=== PATIENT | male | born 1985 | race Two or more races ===

== ENCOUNTER 2023-06-11 09:03 | Outpatient (REF) | payer OTHER, SELFPAY ==
[2023-06-11 09:36] LABS: MANUAL DIFF FLAG NO
[2023-06-11 09:54] LABS: Basophils Absolute Auto 0.1 X10*3/uL (0.0-0.2); Basophils Percent Auto 1.1 % (0-2); Eosinophils Absolute Auto 0.4 X10*3/uL (0.0-0.4); Eosinophils Percent Auto 6.4 % (0-4); Hematocrit 43.7 % (42.0-52.0); Hemoglobin 15.3 g/dl (14.0-18.0); Imm Gran Abs Auto 0.02 X10*3/uL (0.00-0.03); Imm Gran Pct Auto 0.3 % (0.0-0.4); Lymphocytes Absolute Auto 2.6 X10*3/uL (1.2-4.9); Mean Corpuscular Hemoglobin 31.6 pg (27.0-33.0); Mean Corpuscular Volume 90.3 fL (80.0-98.0); Mean Platelet Volume 9.5 fL (9.4-12.4); Monocytes Absolute Auto 0.6 X10*3/uL (0.1-1.2); Monocytes Percent Auto 9.1 % (2-11); Neutrophils Absolute Auto 2.7 x10*3/uL (2.0-8.3); Neutrophils Percent Auto 42.1 % (45-73); Platelet Count 299 X10*3/uL (160-400); Red Blood Count 4.84 X10*6/uL (4.60-5.80); Red Cell Distribution Width 12.4 % (11.0-16.0); White Blood Count 6.3 X10*3/uL (4.8-10.8)
[2023-06-11 10:18] LABS: Alanine Aminotransferase 30 U/L (0-40); Albumin Level 4.7 g/dL (3.5-5.0); Alkaline Phosphatase 49 U/L (39-117); Aspartate Amino Transferase 37 U/L (5-37); Bilirubin Direct 0.3 mg/dL (0.0-0.5); Bilirubin Total 0.9 mg/dL (0.0-1.0); Total Protein 7.6 g/dL (6.5-8.0)
== END 2023-06-11 09:04 | disposition home or self-care (01) ==
LOC: HO.LAB 09:03
PROVIDERS: Visit Provider Physician Assistant Medical
DX: B35.4 Tinea corporis (principal)
CPT/HCPCS: 36415; 80076; 85025

== ENCOUNTER 2023-08-11 09:47 | Outpatient (AMB) | payer OTHER, SELFPAY ==
--- NOTE | 2023-08-11 09:51 | MHC.PC.OV ---
Vital Signs 08/11/23 09:54 Height 5 ft 9.5 in Weight 175 lb 6 oz BMI 25.5 BP 130/62 Blood Pressure Location Rt brachial Position Sitting Pulse 86 Pulse Source Pulse Oximeter Pulse Oximetry (%) 99 Oxygen Delivery Method Room Air Intake Visit Reasons: Obstetric Anaesthetist/ High bp Intake Note: Patient is a new patient here to establish care for High Pressure, Borderline Thyroid, shoulder pain. Transferring care from Dr Ivana Martinez ([facility]). Medical records have been requested and have not received. Supervisor Soakers Required: No Mobile Lab Technician: Not Required per policy Accompanied by: Self / Same As Patient Allergies No Known Allergies Allergy (Verified 08/11/23 10:33) Medication List - Last Reconciled 08/11/23 by Boom Salomon MD hydrochlorothiazide 25 mg PO DAILY levothyroxine 25 mcg PO DAILY sildenafil (pulm.hypertension) 60 mg PO DAILY Tobacco use date assessed: 08/11/23 Dental Screening Dental Screen Date: 08/11/23 Did you have a dental visit in the last 12 months?: No Did you have a dental problem in the last 6 months where you did not have access to dental care?: No Was dental information given to patient?: No HPI Obstetric Anaesthetist/ High bp HPI Details 38-year-old male presents to the office to establish his care here. Requesting a physical today. Past medical history includes hypertension, tinea corporis, tobacco addiction and moderate alcohol use. He also has subclinical hypothyroidism. Patient is seeing a blower room attendant for the treatment of extensive tinea PFSH Medical History (Updated 08/11/23 @ 10:36 by Boom Salomon MD) Alcohol use disorder, mild, abuse Tobacco use disorder Tinea corporis Acquired hypothyroidism Essential hypertension Surgical History No pertinent past surgical history Social History Housing: Condominium Alcohol intake: current Alcohol intake frequency: a few times a week Patient Tobacco Use Status: Current everyday Tobacco user (chewing ) e-Cigarette/Vaping Use: Never Used Second Hand Smoke Exposure: Yes service: No Current occupational status: employed 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 1. Little interest or pleasure in doing things: not at all 2. Feeling down, depressed, or hopeless: not at all 3. Trouble falling or staying asleep, or sleeping too much: not at all 4. Feeling tired or having little energy: not at all 5. Poor appetite or overeating: not at all 6. Feeling bad about yourself - or that you are a failure or have let yourself or your family down: not at all 7. Trouble concentrating on things, such as reading the newspaper or watching television: not at all 8. Moving or speaking so slowly that other people could have noticed. Or the opposite - being so fidgety or restless that you have been moving around a lot more than usual: not at all 9. Thoughts that you would be better off or of hurting yourself in some way: not at all Total score: 0 Depression Screening Interpretation: Negative Depression Screening Done: Yes Source: Developed by Drs. Hasmukh Canela, Nilam Hernandez, Elio Capps and colleagues, with an educational nury from [employer]. Thrive Questionnaire Date Thrive assessed: 08/11/23 I am a: Patient What is your living situation today?: I have a steady place to live Within the past 12 months, did the food you bought not last and you didn't have the money to get more?: Never true Within the past 12 months, did you worry whether your food would run out before you got money to buy more?: Never true Do you have trouble paying for medicines?: No Do you have trouble getting transportation to medical appointments?: No Do you have trouble paying your heating and electricity bill?: No Do you have trouble taking care of your child, family member or friend?: No Do you have trouble with day-to-day activities such as bathing, preparing meals, shopping, managing finances, etc.?: No Are you currently unemployed and looking for a job?: No Are you interested in more education?: No Currently or been in a relationship where the following occur: no concerns reported AUDIT C Alcohol Use Questionnaire (AUDIT-C) 1. How often do you have a drink containing alcohol?: 2-3 times a week 2. How many drinks containing alcohol do you have on a typical day when you are drinking?: 1 or 2 Total Score: 3 RAISA-7 AMB Questionnaire RAISA-7 Date RAISA - 7 assessed: 08/11/23 Feeling nervous, anxious, or on edge: 0 = Not at all Not being able to stop or control worryin = Not at all Worrying too much about different things: 0 = Not at all Trouble relaxin = Not at all Being so restless that it is hard to sit still: 0 = Not at all Becoming easily annoyed or irritable: 0 = Not at all Feeling afraid as if something awful might happen: 0 = Not at all Total RAISA-7 score (0-4 normal; 5-9 mild; 10-14 moderate; 15-21 severe): 0 Source: Developed by Drs. Hasmukh Canela, Nilam Hernandez, Elio Capps and colleagues, with an educational nury from [employer]. Physical exam (Primary Care) Vital Signs: Last Vital Signs Pulse 86 08/11/23 09:54 BP 130/62 08/11/23 09:54 Pulse Ox 99 08/11/23 09:54 Oxygen Delivery Method Room Air 08/11/23 09:54 BMI result Body Mass Index 25.5 Tobacco/Smoking Status: Tobacco use Status Tobacco use date assessed 08/11/23 08/11/23 10:07 Patient Tobacco Use Status Current everyday Tobacco ( 08/11/23 10:07 chewing ) e-Cigarette/Vaping Use Never Used 08/11/23 10:07 PHQ-9: PHQ-9 Score PHQ-9: Total score 0 08/11/23 10:07 Depression Screening Interpretation: Negative Thrive Assessment: Date of Thrive Assessment Date Thrive assessed 08/11/23 08/11/23 10:07 Currently or been in a relationship where the following occur: no concerns reported Const General: cooperative and healthy appearing Nutritional Appearance: well nourished Orientation/consciousness: patient oriented x3 Limitations: no limitations HENMT Head: Yes normal to inspection Eyes General: appearance normal, both eyes and all related structures Neck Neck: Yes normal visual inspection Chest Chest palpation & inspection: normal palpation of entire chest wall Resp Effort & Inspection: normal respiratory effort Cardio Palpation: normal PMI Rate: regular rate Rhythm: regular rhythm Heart sounds: S1 normal heart sound present and S2 normal heart sound present GI Palpation (GI): No hepatosplenomegaly present Skin Other: Face: Peeling erythematous rash on the malar area. He also has a brownish rash on the left side of the abdomen with overlying scales. Neuro General: patient oriented x3 Assessment and Plan Assessment & Plan (1) Essential hypertension: Code(s): I10 - Essential (primary) hypertension Plan: Blood pressure is in range. Prescription for hydrochlorothiazide has been refilled. (2) Acquired hypothyroidism: Code(s): E03.9 - Hypothyroidism, unspecified Plan: Blood work has been ordered. Continue levothyroxine at the same dosage. (3) Tinea corporis: Code(s): B35.4 - Tinea corporis Plan: This is the most acute of his medical problem. He is under the care of a blower room attendant who is prescribing ketoconazole. He is using the ketoconazole on the face also after consulting with the blower room attendant. (4) Tobacco use disorder: Code(s): F17.200 - Nicotine dependence, unspecified, uncomplicated Plan: 15 minutes spent counseling the patient to quit tobacco use. (5) Alcohol use disorder, mild, abuse: Code(s): F10.10 - Alcohol abuse, uncomplicated Plan: Patient was encouraged to decrease the amount of alcohol he is consuming. Also to start exercising and follow a healthy diet. Coding Level of Care Code New Pt Level 5 ([address]55) Diagnoses Essential hypertension I10 Acquired hypothyroidism E03.9 Tinea corporis B35.4 Tobacco use disorder F17.200 Alcohol use disorder, mild, abuse F10.10
[2023-08-11 09:54] VITALS: BP 130/62; PULSE 86; O2SAT 99; BMI 25.5
== END 2023-08-11 10:30 | disposition home or self-care (01) ==
PROVIDERS: PCP Internal Medicine; Visit Provider Internal Medicine
DX: I10 Essential (primary) hypertension (principal); E03.9 Hypothyroidism, unspecified; B35.4 Tinea corporis; F17.210 Nicotine dependence, cigarettes, uncomplicated; F10.10 Alcohol abuse, uncomplicated
CPT/HCPCS: 99204

== ENCOUNTER 2023-08-12 09:20 | Outpatient (REF) | payer OTHER, SELFPAY ==
[2023-08-12 10:54] LABS: Hematocrit 39.9 % (42.0-52.0); Hemoglobin 14.1 g/dl (14.0-18.0); Mean Corpuscular HGB Conc 35.3 g/dl (31.0-36.0); Mean Corpuscular Hemoglobin 32.7 pg (27.0-33.0); Mean Corpuscular Volume 92.6 fL (80.0-98.0); Mean Platelet Volume 10.1 fL (9.4-12.4); Platelet Count 257 X10*3/uL (160-400); Red Blood Count 4.31 X10*6/uL (4.60-5.80)
[2023-08-12 11:07] LABS: Appearance Urine Clear; Color Urine Yellow; Glucose Urine UA Negative (Negative); Leukocyte Esterase Urine Negative (Negative); Nitrite Urine Negative (Negative); UMIC TRIGGER UA YES; Urine Blood Small (1+) (Negative); Urine Ketones Negative (Negative); Urine Protein Negative (Neg-Trace)
[2023-08-12 11:25] LABS: Bacteria Urine None Seen (None Seen); Hyaline Casts Urine 0-2 /LPF (0-2); RBC Urine 0-2 /HPF (0-2); Squamous Epithelial Cell Urine 0-2 /HPF (0-2); WBC Urine 0-5 /HPF (0-5)
[2023-08-12 12:28] LABS: Alanine Aminotransferase 30 U/L (0-40); Albumin Level 4.3 g/dL (3.5-5.0); Alkaline Phosphatase 39 U/L (39-117); Anion Gap 11 (12-20); Aspartate Amino Transferase 27 U/L (5-37); Bilirubin Direct 0.3 mg/dL (0.0-0.5); Blood Urea Nitrogen 5 mg/dL (9-16); Carbon Dioxide 26 mmol/L (22-29); Chloride 106 mmol/L (96-108); Cholesterol 133 mg/dL (<200); Estimated Glomerular Filt Rate > 60; Glucose Random 106 mg/dL (60-115); HDL Cholesterol 59 mg/dL (>40); LDL Cholesterol Calculated 47 mg/dL (<100); Potassium 3.9 mmol/L (3.3-5.1); Sodium 139 mmol/L (135-145); Total Protein 6.8 g/dL (6.5-8.0); Triglycerides 139 mg/dL (<150)
== END 2023-08-12 09:21 | disposition home or self-care (01) ==
LOC: HO.LAB 09:20
PROVIDERS: PCP Internal Medicine; Visit Provider Internal Medicine
DX: I10 Essential (primary) hypertension (principal)
CPT/HCPCS: 36415; 80048; 80061; 80076; 81001; 81003; 84443; 85027

== ENCOUNTER 2023-12-23 10:20 | Outpatient (REF) | payer OTHER, SELFPAY ==
[2023-12-23 10:35] LABS: MANUAL DIFF FLAG NO
[2023-12-23 10:53] LABS: Basophils Absolute Auto 0.1 X10*3/uL (0.0-0.2); Basophils Percent Auto 0.8 % (0-2); Eosinophils Absolute Auto 0.5 X10*3/uL (0.0-0.4); Eosinophils Percent Auto 6.8 % (0-4); Hematocrit 40.8 % (42.0-52.0); Hemoglobin 14.7 g/dl (14.0-18.0); Imm Gran Abs Auto 0.01 X10*3/uL (0.00-0.03); Imm Gran Pct Auto 0.1 % (0.0-0.4); Lymphocytes Absolute Auto 3.1 X10*3/uL (1.2-4.9); Lymphocytes Percent Auto 43.6 % (20-40); Mean Corpuscular Hemoglobin 32.1 pg (27.0-33.0); Mean Corpuscular Volume 89.1 fL (80.0-98.0); Mean Platelet Volume 9.6 fL (9.4-12.4); Monocytes Absolute Auto 0.6 X10*3/uL (0.1-1.2); Monocytes Percent Auto 7.9 % (2-11); Neutrophils Absolute Auto 2.9 x10*3/uL (2.0-8.3); Neutrophils Percent Auto 40.8 % (45-73); Platelet Count 291 X10*3/uL (160-400); Red Blood Count 4.58 X10*6/uL (4.60-5.80); Red Cell Distribution Width 12.4 % (11.0-16.0); White Blood Count 7.1 X10*3/uL (4.8-10.8)
[2023-12-23 11:35] LABS: Alanine Aminotransferase 18 U/L (0-40); Albumin Level 4.4 g/dL (3.5-5.0); Alkaline Phosphatase 56 U/L (39-117); Aspartate Amino Transferase 21 U/L (5-37); Bilirubin Direct 0.3 mg/dL (0.0-0.5); Bilirubin Total 0.9 mg/dL (0.0-1.0); Total Protein 7.1 g/dL (6.5-8.0)
== END 2023-12-23 10:21 | disposition home or self-care (01) ==
LOC: HO.LAB 10:20
PROVIDERS: Visit Provider Physician Assistant Medical
DX: B35.4 Tinea corporis (principal)
CPT/HCPCS: 36415; 80076; 85025

== ENCOUNTER 2024-03-02 09:38 | Outpatient (AMB) | payer OTHER, SELFPAY ==
[2024-03-02 09:45] VITALS: BP 122/90; PULSE 87; O2SAT 98; BMI 25.8
--- NOTE | 2024-03-02 09:45 | A.OFFPC_ITS ---
Vital Signs 03/02/24 09:45 Height 5 ft 9.5 in Weight 177 lb 0.6 oz BMI 25.8 BP 122/90 H Blood Pressure Location Lt brachial Position Sitting Pulse 87 Pulse Source Pulse Oximeter Pulse Oximetry (%) 98 Oxygen Delivery Method Room Air Intake Visit Reasons: HTN, Hypothyroidism Intake Note: Patient is here to follow up Embedded Linux Developer Required: No Allergies No Known Allergies Allergy (Verified 03/02/24 10:51) Medication List - Last Reconciled 03/02/24 by Boom Salomon MD hydrochlorothiazide 25 mg PO DAILY levothyroxine 25 mcg PO DAILY sildenafil (pulm.hypertension) 60 mg PO DAILY Tobacco use date assessed: 08/11/23 Dental Screening Dental Screen Date: 08/11/23 HPI HTN, Hypothyroidism HPI Details 38-year-old male presents to the office to discuss his chronic medical conditions. Since last office visit patient was seen by the air plant engineer for his extensive tinea corporis. He was given systemic therapy to which he responded. He is now taking topical ketoconazole for it. Has stopped taking the medication for hypothyroidism. Compliant with blood pressure meds. 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 How often do you have a drink containing alcohol?: 2-3 times a week 2. How many drinks containing alcohol do you have on a typical day when you are drinking?: 1 or 2 Total Score: 3 RAISA-7 AMB Questionnaire RAISA-7 Date RAISA - 7 assessed: 08/11/23 Source: Developed by Drs. Hasmukh Canela, Nilam Hernandez, Elio Capps and colleagues, with an educational nury from [employer]. Physical exam (Primary Care) Vital Signs: Last Vital Signs Pulse 87 03/02/24 09:45 BP 122/90 H 03/02/24 09:45 Pulse Ox 98 03/02/24 09:45 Oxygen Delivery Method Room Air 03/02/24 09:45 BMI result Body Mass Index 25.8 Tobacco/Smoking Status: Tobacco use Status Tobacco use date assessed 08/11/23 03/02/24 09:46 Patient Tobacco Use Status Current everyday Tobacco ( 03/02/24 09:46 chewing ) e-Cigarette/Vaping Use Never Used 03/02/24 09:46 Thrive Assessment: Date of Thrive Assessment Date Thrive assessed 08/11/23 03/02/24 09:46 Const General: cooperative and healthy appearing Nutritional Appearance: well nourished Orientation/consciousness: patient oriented x3 Limitations: no limitations HENMT Head: Yes normal to inspection Eyes General: appearance normal, both eyes and all related structures Neck Neck: Yes normal visual inspection Chest Chest palpation & inspection: normal palpation of entire chest wall Resp Effort & Inspection: normal respiratory effort Skin Other: Abdomen: Fading rash with hip margin. Neuro General: patient oriented x3 Assessment and Plan Assessment & Plan (1) Tinea corporis: Code(s): B35.4 - Tinea corporis Plan: Patient was instructed to report the names of the medications the air plant engineer has prescribed. (2) Tobacco use disorder: Code(s): F17.200 - Nicotine dependence, unspecified, uncomplicated Plan: Patient continues to chew tobacco. Risks explained. (3) Acquired hypothyroidism: Code(s): E03.9 - Hypothyroidism, unspecified Plan: TSH will be drawn again. Based on the results, Synthroid will be restarted. (4) Essential hypertension: Code(s): I10 - Essential (primary) hypertension Plan: Blood pressure is stable Coding Level of Care Code Est Pt Level 4 (79339) Complex EM visit Add On G2211 Diagnoses Tinea corporis B35.4 Tobacco use disorder F17.200 Acquired hypothyroidism E03.9 Essential hypertension I10
== END 2024-03-02 10:50 | disposition home or self-care (01) ==
PROVIDERS: PCP Internal Medicine; Visit Provider Internal Medicine
DX: B35.4 Tinea corporis (principal); F17.200 Nicotine dependence, unspecified, uncomplicated; E03.9 Hypothyroidism, unspecified; I10 Essential (primary) hypertension
CPT/HCPCS: 99214; G2211

== ENCOUNTER 2024-03-03 10:29 | Outpatient (REF) | payer OTHER, SELFPAY ==
[2024-03-03 11:10] LABS: Hematocrit 43.3 % (42.0-52.0); Hemoglobin 15.5 g/dl (14.0-18.0); Mean Corpuscular HGB Conc 35.8 g/dl (31.0-36.0); Mean Corpuscular Hemoglobin 32.4 pg (27.0-33.0); Mean Corpuscular Volume 90.6 fL (80.0-98.0); Mean Platelet Volume 9.3 fL (9.4-12.4); Platelet Count 300 X10*3/uL (160-400); Red Blood Count 4.78 X10*6/uL (4.60-5.80); Red Cell Distribution Width 12.4 % (11.0-16.0); White Blood Count 5.2 X10*3/uL (4.8-10.8)
[2024-03-03 12:04] LABS: Alanine Aminotransferase 47 U/L (0-40); Albumin Level 4.3 g/dL (3.5-5.0); Alkaline Phosphatase 54 U/L (39-117); Anion Gap 12 (12-20); Aspartate Amino Transferase 47 U/L (5-37); Bilirubin Direct 0.4 mg/dL (0.0-0.5); Bilirubin Total 1.3 mg/dL (0.0-1.0); Blood Urea Nitrogen 4 mg/dL (9-16); Calcium 9.4 mg/dL (8.4-10.2); Carbon Dioxide 30 mmol/L (22-29); Chloride 101 mmol/L (96-108); Cholesterol 145 mg/dL (<200); Estimated Glomerular Filt Rate > 60; Glucose Random 116 mg/dL (60-115); HDL Cholesterol 56 mg/dL (>40); LDL Cholesterol Calculated 61 mg/dL (<100); Potassium 3.8 mmol/L (3.3-5.1); Sodium 139 mmol/L (135-145); Triglycerides 140 mg/dL (<150)
[2024-03-03 12:19] LABS: Thyroid Stimulating Hormone 1.92 uIU/mL (0.32-4.0)
[2024-03-03 13:30] LABS: Appearance Urine Clear; Color Urine Yellow; Glucose Urine UA Negative (Negative); Leukocyte Esterase Urine Small (1+) (Negative); Nitrite Urine Negative (Negative); PH 7.5 (5.0-9.0); UMIC TRIGGER UA YES; Urine Blood Trace (Negative); Urine Ketones Negative (Negative); Urine Protein Negative (Neg-Trace)
[2024-03-03 13:43] LABS: Bacteria Urine None Seen (None Seen); Hyaline Casts Urine 0-2 /LPF (0-2); Squamous Epithelial Cell Urine 0-2 /HPF (0-2); WBC Urine 0-5 /HPF (0-5)
== END 2024-03-03 10:30 | disposition home or self-care (01) ==
LOC: HO.LAB 10:29
PROVIDERS: PCP Internal Medicine; Visit Provider Internal Medicine
DX: B35.4 Tinea corporis (principal); E03.9 Hypothyroidism, unspecified
CPT/HCPCS: 36415; 80048; 80061; 80076; 81001; 84443; 85027

== ENCOUNTER 2024-09-09 11:02 | Outpatient (AMB) | payer OTHER, SELFPAY ==
--- OUTSIDE RECORDS SUMMARY | 2024-09-09 11:06 | XMS_ITS | Encounter Summary ---
Author Organization [facility] Address [address] [place] [address] Care Team Providers Care Senior Hadoop Developer Name Role Phone Pcp, No Primary Care Provider Unavailabl e Encounter Details Date Type Department Care Team (Late st Contact Info) Description 10/12/2022 Scanned Document Advanced Radiology [address] [phone] Matthew Rodney MD [address] [place] [phone] Social History Tobacco Use Types Packs/Day Years Used Date Smoking Tobacco: Never Assessed Sex and Gender Information Value Date Recorded Sex Assigned at Not on file Gender Identity Not on file Sexual Orientation Not on file documented as of this encounter Plan of Treatment Not on file documented as of this encounter Visit Diagnoses Not on filedocumented in this encounter Care Teams Senior Hadoop Developer Relationship Specialty Start Date End Date Pcp, No PCP - General 10/21/22 documented as of this encounter
--- OUTSIDE RECORDS SUMMARY | 2024-09-09 11:06 | XMS_ITS | Encounter Summary ---
Author Organization [facility] Address [address] [place] [address] Care Team Providers Care Velvet Weaver Name Role Phone Ivana Martinez HECTOR Primary Care Provider Encounter Details Date Type Department Care Team (Late st Contact Info) Description 10/12/2021 Scanned Document [facility] [address] [place] [address] Matthew Huynh MD [address] [place] [address] Social History Tobacco Use Types Packs/Day Years Used Date Smoking Tobacco: Never Smokeless Tobacco: Current Chew Alcohol Use Standard Drinks/Week Comments Not Currently 0 (1 standard drink = 0.6 oz pur e alcohol) 2-3 /day AUDIT-C Answer Date Recorded Q1: How often do you have a drink containing alc ohol? 2-3 times a week 10/10/2020 Average Number of Drinks Not on file 021 Frequency of Binge Drinking Not on file 04/2021 PHQ-2 Answer Date Recorded PHQ-2 Total Score 2 09/10/2021 Sex and Gender Information Value Date Recorded Sex Assigned at Male 11/14/2022 12:08 PM EDT Legal Sex Male 9:58 AM EDT Gender Identity Male 11/14/2022 12:08 PM EDT Sexual Orientation Straight 11/14/2022 12 :08 PM EDT COVID-19 Exposure Response Date Recorded In the last month, have you been in contact with someone who was confirmed or suspected to have Coronavirus / COVID-19? No / Unsure 10/12/2021 9:41 AM EST documented as of this encounter Plan of Treatment Not on file documented as of this encounter Visit Diagnoses Not on filedocumented in this encounter Additional Health Concerns Assessment Noted Time PHQ-9 Depression Total Score: 2 09/10/19 10:11 AM EST documented as of this encounter Care Teams Velvet Weaver Relationship Specialty Start Date End Date Ivana Martinez APRN PCP - General Family Medicine 05/13/22 01/27/24 documented as of this encounter
--- OUTSIDE RECORDS SUMMARY | 2024-09-09 11:06 | XMS_ITS | Encounter Summary ---
Author Organization [facility] Address [address] [place] [address] Care Team Providers Care Chief Arson Division Name Role Phone Ivana Martinez HECTOR Primary Care Provider Encounter Details Date Type Department Care Team (Late st Contact Info) Description 11/08/2020 Scanned Document [address] [employer] [facility] [address] [place] [phone] External, Provider Social History Tobacco Use Types Packs/Day Years Used Date Smoking Tobacco: Never Smokeless Tobacco: Current Chew Alcohol Use Standard Drinks/Week Comments Yes 0 (1 standard drink = 0.6 oz pur e alcohol) 7-8 drinks / week AUDIT-C Answer Date Recorded Q1: How often do you have a drink containing alc ohol? 2-3 times a week 10/10/2020 Average Number of Drinks Not on file Frequency of Binge Drinking Not on file 04/2021 PHQ-2 Answer Date Recorded PHQ-2 Total Score 0 10/10/2020 Sex and Gender Information Value Date Recorded Sex Assigned at Male 11/14/2022 12:08 PM EDT Legal Sex Male 9:58 AM EDT Gender Identity Male 11/14/2022 12:08 PM EDT Sexual Orientation Straight 11/14/2022 12 :08 PM EDT documented as of this encounter Plan of Treatment Not on file documented as of this encounter Procedures Procedure Name Priority Date/Time Associated Diagnosis Comments XRAY RESULT SCAN Routine 11/08/2020 documented in this encounter Results * Xray Result Scan (11/08/2020) us Provider External IMG SCAN REPORTS Final Result documented in this encounter Visit Diagnoses Not on filedocumented in this encounter Additional Health Concerns Infection Onset Date Last Indicated Resolved Time R/O COVID-19 03/19/2021 03/19/2021 03/19/2021 8:49 PM EDT Assessment Noted Time PHQ-9 Depression Total Score: 0 10/11/19 21 10:00 AM EST documented as of this encounter Care Teams Chief Arson Division Relationship Specialty Start Date End Date Ivana Martinez APRN PCP - General Family Medicine 05/13/22 01/27/24 documented as of this encounter
--- OUTSIDE RECORDS SUMMARY | 2024-09-09 11:06 | XMS_ITS | Encounter Summary ---
Author Organization [facility] Address [address] [place] [address] Care Team Providers Care Automobile Damage Appraiser Name Role Phone Ivana Martinez HECTOR Primary Care Provider Reason for Visit * Reason Comments Medication Refill Encounter Details Date Type Department Care Team (Late st Contact Info) Description 06/01/2021 Refill [facility] Internal Medicine [address] [place] [address] Zoya Clayton MD [facility] [address] [phone] Medication Refill Social History Tobacco Use Types Packs/Day Years [...] Answer Date Recorded PHQ-2 Total Score 0 05/21/2021 Sex and Gender Information Value Date Recorded Sex Assigned at Male 11/14/2022 12:08 PM EDT Legal Sex Male 9:58 AM EDT Gender Identity Male 11/14/2022 12:08 PM EDT Sexual Orientation Straight 11/14/2022 12 :08 PM EDT documented as of this encounter Miscellaneous Notes * Telephone Encounter - Savannah Hassan - 06/01/2021 9:19 AM EDT LUIS FELIPE 05/21/2021 NOV 06/06/2021 documented in this encounter Plan of Treatment Not on file documented as of this encounter Visit Diagnoses Not on filedocumented in this encounter Additional Health Concerns Assessment Noted Time PHQ-9 Depression Total Score: 0 05/21/20 21 11:05 AM EDT documented as of this encounter Care Teams Automobile Damage Appraiser Relationship Specialty Start Date End Date Ivana Martinez APRN PCP - General Family Medicine 05/13/22 01/27/24 documented as of this encounter
--- OUTSIDE RECORDS SUMMARY | 2024-09-09 11:06 | XMS_ITS | Clinical Summary ---
Author Organization [address] Address [address] [place] [phone] Care Team Providers Care Bow Machine Operator Name Role Phone Unavailable Primary Care Provider Unavailabl e Allergies No known active allergies Medications omeprazole (PRILOSEC) 40 mg capsule Take 1 capsule (40 mg total) by mouth daily. 90 capsule 2 Active Additional Information Patient not taking.Reported on 02/26/2023 terbinafine HCL (LAMISIL) 250 mg tabletIndicatio ns:tinea corporis,tinea pedis Take 1 tablet (250 mg total) by mouth daily. 30 tablet 3 Active ketoconazole (NIZORAL) 2 % creamIndication s:tinea corporis,tinea pedis Apply topically daily. 60 g 11 3 Active hydroCHLOROthia zide (HYDRODIURIL) 25 mg tablet Take 1 tablet (25 mg total) by mouth daily. 90 tablet 1 3 Active levothyroxine (SYNTHROID, LEVOTHROID) 25 MCG tablet Take 1 tablet (25 mcg total) by mouth daily. 90 tablet 1 3 Active ergocalciferol (ERGOCALCIFEROL ) 1,250 mcg (50,000 unit) capsuleIndicati ons:Vitamin D deficiency take 1 capsule by mouth one time per week 12 capsule 3 Active sildenafil (REVATIO) 20 mg tablet Please take 3 to 5 tablets as needed prior to sexual act activity on an empty stomach. 100 tablet 6 4 Active Active Problems Problem Noted Date Diagnosed Date Premature ejaculation 10/02/2022 Microhematuria 05/20/2022 ED (erectile dysfunction) of organic origin 05/04 Jock itch 05/20/2022 Screening PSA (prostate specific antigen) 2021 Hypercalcemia 10/10/2020 Hypertension, unspecified type 06/11/2019 Tinea corporis 06/11/2019 GERD (gastroesophageal reflux disease) Resolved Problems Problem Noted Date Diagnosed Date Resolved Date Chest pain, unspecified type 03/22/2020 10/10/2020 Overview (03/22/2020): EKG within normal limits. Will get 2D echo and a treadmill stress test. Immunizations Name Administration Dates Next Due COVID-19 Vaccine - PFIZER 02/03/2021 Influenza, injectable, quadrivalent, preservativ e free 05/13/2022,06/06/2021 Tdap 10/10/2020 Family History Medical History Relation Name Comments Hypertension Father Relation Name Status Comments Father Alive Mother Alive Social History Tobacco Use Types Packs/Day Years Used Date Smoking Tobacco: Never Smokeless Tobacco: Current Chew Tobacco Cessation:Ready to Q uit: Not Asked; Counseling Given: Not Answered Alcohol Use Standard Drinks/Week Comments Not Currently 0 (1 standard drink = 0.6 oz pur e alcohol) 2-3 /day AUDIT-C Answer Date Recorded Q1: How often do you have a drink containing alc ohol? 2-3 times a week 10/10/2020 Average Number of Drinks Not on file 021 Frequency of Binge Drinking Not on file 04/2021 PHQ-2 Answer Date Recorded PHQ-2 Total Score 0 02/26/2023 Sex and Gender Information Value Date Recorded Sex Assigned at Male 11/14/2022 12:08 PM EDT Legal Sex Male 9:58 AM EDT Gender Identity Male 11/14/2022 12:08 PM EDT Sexual Orientation Straight 11/14/2022 12 :08 PM EDT Last Filed Vital Signs Vital Sign Reading Time Taken Comments Blood Pressure 122/90 02/26/2023 10:38 AM EDT Pulse 85 02/26/2023 10:38 AM EDT Temperature 36.6 ??C (97.8 ??F) 02/26/2023 10:38 AM E DT Respiratory Rate 18 10/12/2021 12:15 PM EST Oxygen Saturation 99% 02/26/2023 10:38 AM EDT Inhaled Oxygen Concentration - - Weight 80.7 kg (178 lb) 02/26/2023 10:38 AM EDT Height 180.3 cm (5' 11 ) 02/26/2023 10:38 AM EDT Body Mass Index 24.83 02/26/2023 10:38 AM EDT Plan of Treatment Health Maintenance Due Date Last Done Comments Prediabetes Surveillance 02/27/2024 023, 09/03/2022, 05/13/2022, Additional history exists Covid-19 vaccine series ( season) 2024 02/03/2021 Tetanus adult (Td q 10,TDAP once) 10/10/2030 10/10/2020 Colon cancer screening, Colonoscopy 10/13/2031 10/12/2021, 10/12/2021, 10/12/2021, Additional history exists RSV Discussion (1 - 1-dose 75+ series) 2061 Hepatitis C screening Completed 05/13/2022, 021 Influenza vaccine Discontinued 05/13/2022, 06/06/2021 HIV screening Discontinued Meningococcal Vaccine Aged Out No jeanna thalia eligible based on patient's age to complete this topic Pneumococcal Vaccine Aged Out No long er eligible based on patient's age to complete this topic Procedures Procedure Name Priority Date/Time Associated Diagnosis Comments HEMOGLOBIN A1C Routine 02/26/2023 11:12 AM EDT Hypertension, unspecified type HEPATITIS C AB WITH REFLEX TO HCV PCR Routine 05/13/2022 10:46 AM EDT Hypertension, unspecified type COLONOSCOPY (IMAGES) Routine 10/12/2021 7:19 AM EST from Last 3 Months or Most Recently Relevant to Health Maintenance Results * (ABNORMAL) Hemoglobin A1c (02/26/2023 11:12 AM EDT) Hemoglobin A1c 5.8(H) 4.0 - 5.6 % 02/26/2023 7:37 PM EDT [facility] Comment: Hemoglobin A1c values of 5.7-6.4 % identify individuals with an increased risk for future diabetes and to whom the term pre-diabetes may be applied. ??Hemoglobin A1c values greater than 6.4% on more than one occasion are diagnostic of diabetes. Lowering HbA1c to below 7% is considered to reduce microvascular and neuropathic complications of diabetes. This boronate affinity Hb A1c method provides accurate analytical results in the presence of nearly all Hb variants. Hb F higher than 10% of total Hb may yield falsely low results. Conditions that shorten red cell survival, such as the presence of unstable hemoglobins like Hb SS, Hb CC, and Hb SC, or other causes of hemolytic anemia may yield falsely low results. Iron deficiency anemia may yield falsely high results. Estimated Average Glucose mg/dL 120 mg/dL 02/26/2023 7:37 PM EDT [facility] Comment: Estimated average glucose (eAG) is a calculated value designed to estimate ??the expected average blood glucose level throughout the day from a single ??measurement of ??glycated hemoglobin A1C (HbA1c) and follows the calculation proposed by the [employer] (Diabetes Care 31: 1-6, 2008). It may have less accuracy in children, women and patients with certain erythrocyte disorders. Blood Venipuncture / Unknown 02/26/2023 11:12 AM EDT 02/26/2023 11:12 AM EDT Ivana Martinez APRN LAB BLOOD ORDERABLES Fi nal Result [address] [phone] * Hepatitis C Ab with reflex to HCV PCR (05/13/2022 10:46 AM EDT) Hepatitis C Ab Initial Result 0.03 S/CO 05/13/2022 1:44 PM EDT [facility] Hepatitis C Ab Interpretation Non-React lilo Non-React lilo 05/13/2022 1:44 PM EDT [facility] Blood Venipuncture / Unknown 05/13/2022 10:46 AM EDT 05/13/2022 10:46 AM EDT us Ivana Martinez CLAY PLANT TREATER LAB BLOOD ORDERABLES Fi [place]al [place] [address], [facility] [phone] * Colonoscopy (10/12/2021 7:19 AM EST) Colonoscopy Endoscopy Patient Name: Jay Guillermo ? Procedure Date: 10/12/2021 7:19 AM ?Date of : 1985 Age: 36 ? Gender: Male Admit Type: Outpatient ?CSN #: [id number] Note Status: Finalized ?Attending MD: Matthew Huynh MD Procedure: ? Colonoscopy Indications: ? Generalized abdominal pain, Clinically significant ? diarrhea of unexplained origin Providers: ? Matthew Huynh MD Referring : ?Zoya Clayton (Referring MD) Medicines: ? Monitored Anesthesia Care Complications: ? No immediate complications. Requesting Provider: ?? Procedure: ? Pre-Anesthesia Assessment: ? - Prior to the procedure, a History and Physical was ? performed, and patient medications and allergies were ? reviewed. The patient's tolerance of previous ? anesthesia was also reviewed. The risks and benefits ? of the procedure and the sedation options and risks ? were discussed with the patient. All questions were ? answered, and informed consent was obtained. Prior ? Anticoagulants: The patient has taken no anticoagulant ? or antiplatelet agents. ASA Grade Assessment: II - A ? patient with mild systemic disease. After reviewing ? the risks and benefits, the patient was deemed in ? satisfactory condition to undergo the procedure. ? After obtaining informed consent, the scope was passed ? under direct vision. Throughout the procedure, the ? patient's blood pressure, pulse, and oxygen ? saturations were monitored continuously. The [id number] ? [id number] was introduced through the anus and advanced ? to 8 cm into the ileum. The colonoscopy was performed ? without difficulty. The patient tolerated the ? procedure well. The quality of the bowel preparation ? was good. ? Findings: ? The sigmoid colon, descending colon, transverse colon, ascending colon, ? cecum and ileum appeared normal. Biopsies were taken with a cold forceps ? for histology. ? A localized area of mildly congested and erythematous mucosa was found ? in the rectum. Biopsies were taken with a cold forceps for histology. ? Impression: ?- The sigmoid colon, descending colon, transverse ? colon, ascending colon, cecum and terminal ileum are ? normal. Biopsied. ? - Congested and erythematous mucosa in the rectum. ? Biopsied. Recommendation: ?- Discharge patient to home (with escort). ? - Resume previous diet. ? - Continue present medications. ? - Patient has a contact number available for ? emergencies. The signs and symptoms of potential ? delayed complications were discussed with the patient. ? Return to normal activities tomorrow. Written ? discharge instructions were provided to the patient. ? Procedure Code(s): ? --- Professional --- ? 31657, Colonoscopy, flexible; with biopsy, single or ? multiple Diagnosis Code(s): ? --- Professional --- ? K62.89, Other specified diseases of anus and rectum ? R10.84, Generalized abdominal pain ? R19.7, Diarrhea, unspecified CPT copyright 2020 [employer]. All rights reserved. The codes documented in this report are preliminary and upon finance mgr review may be revised to meet current compliance requirements. Attending Participation: ? I personally performed the entire procedure. ? Matthew Huynh MD _ Matthew Huynh MD 10/12/2021 11:45:52 AM This report has been signed electronically. Number of Addenda: 0 Note Initiated On: 10/12/2021 7:19 AM Estimated Blood Loss: ? Estimated blood loss: none. Scope In: Scope Out: [facility] [employer] 10/12/2021 7:19 AM EST Zoya Clayton MD GI PROCEDURE ORDERABLES Final Re sult [facility] [employer] from Last 3 Months or Most Recently Relevant to Health Maintenance Insurance [place]ID [place] Advance Directives Documents on File Type Date Recorded Patient Spout Liner Expl anation Healthcare Spout Liner/Po wer of Library Technology Instructor 03/19/2021 4:27 PM 2020
--- OUTSIDE RECORDS SUMMARY | 2024-09-09 11:06 | XMS_ITS | Encounter Summary ---
Author Organization [facility] Address [address] [place] [phone] Care Team Providers Care Revenue Analyst Name Role Phone Andrew Martinezhanie HECTOR Primary Care Provider Encounter Details Date Type Department Care Team (Late st Contact Info) Description 09/26/2021 Scanned Document [facility] Internal Medicine [address] [place], [place] [phone] External, Provider Social History Tobacco Use Types [...] Procedure Name Priority Date/Time Associated Diagnosis Comments XR SHOULDER RIGHT MIN 2 VIEWS Routine 09/26/2021 XR SHOULDER RIGHT MIN 2 VIEWS Routine 09/26/2021 documented in this encounter Results * XR Shoulder Right Min 2 Views (09/26/2021) Anatomical Region Laterality Modality Shoulder, Ortho Shoulder Right Digital Radiography us Provider External IMG DIAGNOSTIC IMAGING ORDERAB LES Final Result * XR Shoulder Right Min 2 Views (09/26/2021) Anatomical Region Laterality Modality Shoulder, Ortho Shoulder Right Digital Radiography us Provider External IMG DIAGNOSTIC IMAGING ORDERAB LES Final Result documented in this encounter Visit Diagnoses Not on filedocumented in this encounter Additional Health Concerns Assessment Noted Time PHQ-9 Depression Total Score: 2 09/10/19 22 10:11 AM EST documented as of this encounter Care Teams Revenue Analyst Relationship Specialty Start Date End Date Ivana Martinez APRN PCP - General Family Medicine 05/13/22 01/27/24 documented as of this encounter
--- OUTSIDE RECORDS SUMMARY | 2024-09-09 11:06 | XMS_ITS | Encounter Summary ---
Author Organization [facility] Address [address] [place] [address] Care Team Providers Care Cnc Operator Programmer Name Role Phone Ivana Martinez HECTOR Primary Care Provider Reason for Visit * Reason Comments Medication Refill Encounter Details Date Type Department Care Team (Late st Contact Info) Description 09/29/2020 Refill [facility] Family Medicine [address] [place], [place] [id number] Zoya Clayton MD [address] [phone] Medication Refill Social History Tobacco Use Types Packs/Day Years Used Date Smoking Tobacco: Never Smokeless Tobacco: Current Chew Alcohol Use Standard Drinks/Week Comments Yes 0 (1 standard drink = 0.6 oz pur e alcohol) 7-8 drinks / week AUDIT-C Answer Date Recorded Frequency of Alcohol Consumption 2-3 times a wee k 05/05/2019 Average Number of Drinks Not on file 019 Frequency of Binge Drinking Not on file 09/2018 PHQ-2 Answer Date Recorded PHQ-2 Score 0 06/11/2019 Sex and Gender Information Value Date Recorded [...] Noted Time PHQ-9 Depression Total Score: 0 09/29/19 20 10:49 AM EST documented as of this encounter Care Teams Cnc Operator Programmer Relationship Specialty Start Date End Date Ivana Martinez APRN PCP - General Family Medicine 05/13/22 01/27/24 documented as of this encounter
--- OUTSIDE RECORDS SUMMARY | 2024-09-09 11:06 | XMS_ITS | Encounter Summary ---
Author Organization [facility] Address [address] [place] [phone] Care Team Providers Care Industrial Boilermaker Name Role Phone Ivana Martinez HECTOR Primary Care Provider Encounter Details Date Type Department Care Team (Late st Contact Info) Description 08/27/2021 Scanned Document [address] [facility] [address] [place] [phone] Provider, historical . Social History Tobacco Use Types Packs/Day Years [...] Priority Date/Time Associated Diagnosis Comments XR SHOULDER BILATERAL AP INT AP EXT AXILLARY ( Y LM) Routine 08/22/2021 documented in this encounter Results * XR Shoulder Bilateral AP Internal AP External Axillary ( Y) (08/22/2021) Anatomical Region Laterality Modality Shoulder, Ortho Shoulder Digital Radiography us Historical Provider IMG DIAGNOSTIC IMAGING ORDER URI Final Result documented in this encounter Visit Diagnoses Not on filedocumented in this encounter Additional Health Concerns Assessment Noted Time PHQ-9 Depression Total Score: 0 05/21/20 21 11:05 AM EDT documented as of this encounter Care Teams Industrial Boilermaker Relationship Specialty Start Date End Date Ivana Martinez APRN PCP - General Family Medicine 05/13/22 01/27/24 documented as of this encounter
--- OUTSIDE RECORDS SUMMARY | 2024-09-09 11:06 | XMS_ITS ---
Author Name [facility] Organization Unknown Results Test Name/Text Value Interpretation Date Range Source Deprecated Calcidiol+Calciferol SerPl-mC 11.1ng/mL Below low normal [id number] 30 - 100 [facility] BKR ESTIMATED AVERAGE GLUCOSE 120mg/dL Normal [id number] [facility] Hgb A1c MFr Bld 5.8% Above high normal [id number] 4 - 5.6 [facility] GGT SerPl-cCnc 108U/L Above high normal [id number] - 48 [facility] Cholest/HDLc SerPl 2.9 Normal [id number] 0 - 5 [facility] LDLc SerPl Calc-mCnc 91mg/dL Normal [id number] - [facility] HDLc SerPl-mCnc 62mg/dL Normal [id number] - [facility] Trigl SerPl-mCnc 161mg/dL Above high normal [id number] - [facility] Cholest SerPl-mCnc 180mg/dL Normal [id number] - [facility] TSH SerPl DL<=0.005 mIU/L-aCnc 2.55uIU/mL Normal [id number] - [facility] Anion Gap3 SerPl-sCnc 11 Normal [id number] 7 - 1 7 [facility] Creat SerPl-mCnc 0.76mg/dL Normal [id number] 0.4 - 1.3 [facility] Albumin/Glob SerPl 1.9 Normal [id number] 1 - 2.2 [facility] Albumin SerPl BCG-mCnc 5g/dL Above high normal [id number] 3.6 - 4.9 [facility] eGFRcr SerPlBld CKD-EPI 2020 60mL/min/1.73 m2 Normal [id number] - [facility] ALT SerPl w/o P-5'-P-cCnc 27U/L Normal [id number] 9 - 59 [facility] Potassium SerPl-sCnc 4.1mmol/L Normal [id number] 3.3 - 5.3 [facility] Bilirub SerPl-mCnc 0.4mg/dL Normal [id number] - [facility] Calcium SerPl-mCnc 10mg/dL Normal [id number] 8.8 - 10 .2 [facility] AST/ALT SerPl-cRto 1.5 Normal - [facility] BUN SerPl-mCnc 8mg/dL Normal [id number] 6 - 20 [facility] ALP SerPl-cCnc 57U/L Normal [id number] 9 - 122 [facility] HCO3 SerPl-sCnc 30mmol/L Normal [id number] 20 - 30 [facility] Chloride SerPl-sCnc 99mmol/L Normal [id number] 98 - 10 7 [facility] BUN/Creat SerPl 10.5 Normal [id number] 8 - 23 [facility] AST SerPl w P-5'-P-cCnc 40U/L Above high normal 10 - 35 [facility] Globulin Plas-mCnc 2.7g/dL Normal [id number] 2.3 - 3. 5 [facility] Prot SerPl-mCnc 7.7g/dL Normal [id number] 6.6 - 8.7 [facility] Sodium SerPl-sCnc 140mmol/L Normal [id number] 136 - 144 [facility] Glucose SerPl-mCnc 96mg/dL Normal [id number] 70 - 100 [facility] Monocytes # Bld Auto 0.00n6491/uL Normal [id number] 0 - 1 [facility] BKR WAM BASOPHIL ABSOLUTE COUNT. 0.34f3419/uL Normal [id number] 0 - 1 [facility] nRBC/100 WBC Bld Auto-Rto 0% Normal [id number] 0 - 1 [facility] Neutrophils # Bld Auto 2.8c1909/uL Normal 2 - 7.6 [facility] Eosinophil # Bld Auto 0.70z1577/uL Normal [id number] 0 - 1 [facility] nRBC # Bld Auto 3l9108/uL Normal [id number] 0 - 1 [facility] MCHC RBC Auto-mCnc 36.5g/dL Above high normal [id number] 31 - 36 [facility] Monocytes/leuk NFr Bld Auto 9.5% Normal [id number] 4 - 12 [facility] WBC # Bld Auto 5.0q1651/uL Normal [id number] 4 - 11 [facility] Hct VFr Bld Auto 44.9% Normal [id number] 38.5 - 50 [facility] RDW RBC Auto-Rto 12.6% Normal [id number] 11 - 15 [facility] PMV Bld Auto 9.8fL Normal [id number] 8 - 12 [facility] Eosinophil/leuk NFr Bld Auto 8.8% Above high normal [id number] 0 - 5 [facility] MCH RBC Qn Auto 32.4pg Normal [id number] 27 - 33 [facility] Basophils/leuk NFr Bld Auto 1.3% Normal [id number] 0 - 1.4 [facility] Lymphocytes # Bld Auto 9b1491/uL Normal [id number] 0.6 - 3.7 [facility] RBC # Bld Auto 5.06M/uL Normal [id number] 4 - 6 [facility] Neutrophils/leuk NFr Bld Auto 42.8% Normal [id number] 39 - 72 [facility] Imm Granulocytes # Bld Auto 0.04w2564/uL Normal [id number] 0 - 0.3 [facility] Platelet # Bld Auto 005z3356/uL Normal [id number] 150 - 420 [facility] MCV RBC Auto 88.7fL Normal [id number] 80 - 100 [facility] Lymphocytes/leuk NFr Bld Auto 37.2% Normal [id number] 17 - 50 [facility] Imm Granulocytes/leuk NFr Bld Auto 0.4% Normal [id number] 0 - 1 [facility] Hgb Bld-mCnc 16.4g/dL Normal [id number] 13.2 - 17.1 [facility]
--- OUTSIDE RECORDS SUMMARY | 2024-09-09 11:06 | XMS_ITS | Encounter Summary ---
Author Organization [facility] Address [address] [place] [address] Care Team Providers Care Quality Control Coordinator Name Role Phone Ivana Martinez HECTOR Primary Care Provider Reason for Visit * Reason Onset Date Comments Medication Refill 10/29/2021 Encounter Details Date Type Department Care Team (Late st Contact Info) Description 10/29/2021 Refill [facility] Internal Medicine [address] [place] [address] Zoya Clayton MD [address] [place] [phone] Medication Refill Social History Tobacco Use [...] AM EST documented as of this encounter Miscellaneous Notes * Telephone Encounter - Emma Pereyra - 10/30/2021 7:41 AM EDT LUIS FELIPE 09/10/21 No new visit documented in this encounter Plan of Treatment Not on file documented as of this encounter Visit Diagnoses Diagnosis Tinea corporis- Primary Dermatophytosis of the body documented in this encounter Additional Health Concerns Assessment Noted Time PHQ-9 Depression Total Score: 2 09/10/19 22 10:11 AM EST documented as of this encounter Care Teams Quality Control Coordinator Relationship Specialty Start Date End Date Ivana Martinez APRN PCP - General Family Medicine 05/13/22 01/27/24 documented as of this encounter
--- OUTSIDE RECORDS SUMMARY | 2024-09-09 11:06 | XMS_ITS | Encounter Summary ---
Author Organization [facility] Address [address] [place] [address] Care Team Providers Care Psychologist Chief Name Role Phone Ivana Martinez HECTOR Primary Care Provider Reason for Visit * Reason Onset Date Comments Medication Refill 02/26/2022 Encounter Details Date Type Department Care Team (Late st Contact Info) Description 02/26/2022 Refill [facility] Internal Medicine [address] [place] [address] Zoya Clayton MD [address] [place] [phone] Medication Refill Social History Tobacco Use [...] of this encounter Visit Diagnoses Diagnosis Tinea corporis Dermatophytosis of the body documented in this encounter Additional Health Concerns Assessment Noted Time PHQ-9 Depression Total Score: 2 09/10/19 22 10:11 AM EST documented as of this encounter Care Teams Psychologist Chief Relationship Specialty Start Date End Date Ivana Martinez APRN PCP - General Family Medicine 05/13/22 01/27/24 documented as of this encounter
--- OUTSIDE RECORDS SUMMARY | 2024-09-09 11:06 | XMS_ITS | Encounter Summary ---
Author Organization [facility] Address [address] [place] [address] Care Team Providers Care Tool Dispatcher Name Role Phone Ivana Martinez HECTOR Primary Care Provider Reason for Visit * Reason Onset Date Comments Medication Refill 07/12/2021 Encounter Details Date Type Department Care Team (Late st Contact Info) Description 07/12/2021 Refill [facility] Internal Medicine [address] [place] [address] Zoya Clayton MD [address] [place] [phone] Medication Refill Social History Tobacco Use [...] * Telephone Encounter - Savannah Hassan - 07/12/2021 12:21 PM EST LUIS FELIPE 05/21/2021 NOV Visit date not found Lab Results Component Value Date TSH 1.92 05/31/2021 documented in this encounter Plan of Treatment Not on file documented as of this encounter Visit Diagnoses Not on filedocumented in this encounter Additional Health Concerns Assessment Noted Time PHQ-9 Depression Total Score: 0 05/21/20 11:05 AM EDT documented as of this encounter Care Teams Tool Dispatcher Relationship Specialty Start Date End Date Ivana Martinez APRN PCP - General Family Medicine 05/13/22 01/27/24 documented as of this encounter
--- OUTSIDE RECORDS SUMMARY | 2024-09-09 11:06 | XMS_ITS | Encounter Summary ---
Author Organization [facility] Address [address] [place] [address] Care Team Providers Care Engineer Process Name Role Phone Ivana Martinez HECTOR Primary Care Provider Encounter Details Date Type Department Care Team (Late st Contact Info) Description 11/17/2021 Scanned Document [facility] Internal Medicine [address], [address] [place], [place] [address] Zoya Clayton MD [address] [phone] Social History Tobacco Use Types Packs/Day Years [...] documented as of this encounter Care Teams Engineer Process Relationship Specialty Start Date End Date Ivana Martinez APRN PCP - General Family Medicine 05/13/22 01/27/24 documented as of this encounter
--- OUTSIDE RECORDS SUMMARY | 2024-09-09 11:06 | XMS_ITS | Encounter Summary ---
Author Organization [facility] Address [address] [place] [phone] Care Team Providers Care Lei Maker Name Role Phone JohannaAndrew mcelroyhanie HECTOR Primary Care Provider Encounter Details Date Type Department Care Team (Late st Contact Info) Description 11/19/2021 Scanned Document [facility] [employer] [facility] Internal Medicine [address], 1[address] [place], [place] [address] Provider, historical . Social History Tobacco Use [...] Date/Time Associated Diagnosis Comments XR SHOULDER RIGHT AP INTERNA L AP EXTERNAL AXILLARY ([facility] Y) Routine 11/17/2021 documented in this encounter Results * XR Shoulder Right AP Internal AP External Axillary ( Y) (11/17/2021) Anatomical Region Laterality Modality Shoulder, Ortho Shoulder Right Digital Radiography us Historical Provider IMG DIAGNOSTIC IMAGING ORDER URI Final Result documented in this encounter Visit Diagnoses Not on filedocumented in this encounter Additional Health Concerns Assessment Noted Time PHQ-9 Depression Total Score: 2 09/10/19 22 10:11 AM EST documented as of this encounter Care Teams Lei Maker Relationship Specialty Start Date End Date Ivana Martinez APRN PCP - General Family Medicine 05/13/22 01/27/24 documented as of this encounter
--- OUTSIDE RECORDS SUMMARY | 2024-09-09 11:06 | XMS_ITS | Encounter Summary ---
Author Organization [facility] Address [address] [place] [address] Care Team Providers Care Well Site Drilling Engineer Name Role Phone Ivana Martinez APRN Primary Care Provider Encounter Details Date Type Department Care Team (Late st Contact Info) Description 02/26/2023 Orders Only [facility] Family Medicine [address] [place] [address] Ivana Martinez APRN [address] [place] [address] [address] [place] [address] Hypertension, unspecified type; Hypothyroidism, unspecified type; LFT elevation; Vitamin D deficiency Social History Tobacco Use Types Packs/Day Years [...] as of this encounter Miscellaneous Notes * Result Encounter Note - Ivana Martinez APRN - 02/26/2023 11:12 AM EDT Vit D remains very low is he really taking the supplement? He should cont to cut back on his alcohol use his liver enzymes are improving. * Result Encounter Note - Savannah Hassan - 02/26/2023 11:12 AM EDT Pt states he ran out of Rx. Needs a refill. documented in this encounter Plan of Treatment Not on file documented as of this encounter Procedures Procedure Name Priority Date/Time Associated Diagnosis Comments COMPREHENSIVE METABOLIC PANEL Routine 02/26/2023 11:12 AM EDT Hypertension, unspecified type TSH W/REFLEX TO FT4 ([facility] GH LMW Q YH) Routine 02/26/2023 11:12 AM EDT Hypothyroidism, unspecified type VITAMIN D, 25-HYDROXY Routine 02/26/2023 11:12 AM EDT Vitamin D deficiency CBC WITH AUTO DIFFERENTIAL Routine 02/26/2023 11:12 AM EDT Hypertension, unspecified type CBC AND DIFFERENTIAL Routine 02/26/2023 11:12 AM EDT Hypertension, unspecified type HEMOGLOBIN A1C Routine 02/26/2023 11:12 AM EDT Hypertension, unspecified type GAMMA GT Routine 02/26/2023 11:12 AM EDT LFT elevation LIPID PANEL Routine 02/26/2023 11:12 AM EDT Hypertension, unspecified type COMPREHENSIVE METABOLIC PANEL Routine 02/26/2023 11:12 AM EDT Hypertension, unspecified type documented in this encounter Results * (ABNORMAL) CBC auto differential (02/26/2023 11:12 AM EDT) WBC 5.4 4.0 - 11.0 x1000/??L 02/26/2023 3:06 PM [facility] RBC 5.06 4.00 - 6.00 M/??L 02/26/2023 3:06 PM [facility] Hemoglobin 16.4 13.2 - 17.1 g/dL 02/26/2023 3:06 PM [facility] Hematocrit 44.90 38.50 - 50.00 % 02/26/2023 3:06 PM [facility] MCV 88.7 80.0 - 100.0 fL 02/26/2023 3:06 PM [facility] MCH 32.4 27.0 - 33.0 pg 02/26/2023 3:06 PM [facility] MCHC 36.5(H) 31.0 - 36.0 g/dL 02/26/2023 3:06 PM [facility] RDW-CV 12.6 11.0 - 15.0 % 02/26/2023 3:06 PM [facility] Platelets 331 150 - 420 x1000/??L 02/26/2023 3:06 PM [facility] MPV 9.8 8.0 - 12.0 fL 02/26/2023 3:06 PM [facility] Neutrophils 42.8 39.0 - 72.0 % 02/26/2023 3:06 PM [facility] Lymphocytes 37.2 17.0 - 50.0 % 02/26/2023 3:06 PM [facility] Monocytes 9.5 4.0 - 12.0 % 02/26/2023 3:06 PM [facility] Eosinophils 8.8(H) 0.0 - 5.0 % 02/26/2023 3:06 PM [facility] Basophil 1.3 0.0 - 1.4 % 02/26/2023 3:06 PM [facility] Immature Granulocytes 0.4 0.0 - 1.0 % 02/26/2023 3:06 PM EDT [facility] nRBC 0.0 0.0 - 1.0 % 02/26/2023 3:06 PM EDT [facility] ANC(Abs Neutrophil Count) 2.30 2.00 - 7.60 x 1000/??L 02/26/2023 3:06 PM [facility] Absolute Lymphocyte Count 2.00 0.60 - 3.70 x 1000/??L 02/26/2023 3:06 PM EDT [facility] Monocyte Absolute Count 0.51 0.00 - 1.00 x 1000/??L [facility] Count 0.47 0.00 - 1.00 x 1000/??L 02/26/2023 3:06 PM [facility] Basophil Absolute Count 0.07 0.00 - 1.00 x 1000/??L 02/26/2023 3:06 PM [facility] Absolute Immature Granulocyte Count 0.02 0.00 - 0.30 x 1000/??L 02/26/2023 3:06 PM [facility] Absolute nRBC 0.00 0.00 - 1.00 x 1000/??L 02/26/2023 3:06 PM [facility] Blood Venipuncture / Unknown 02/26/2023 11:12 AM EDT 02/26/2023 11:12 AM EDT us Ivana Martinez GRANT ADMINISTRATOR LAB BLOOD ORDERABLES Fi nal Result [address] [phone] * (ABNORMAL) Comprehensive metabolic panel (02/26/2023 11:12 AM EDT) Sodium 140 136 - 144 mmol/L 02/26/2023 3:26 PM EDT [facility] Potassium 4.1 3.3 - 5.3 mmol/L 02/26/2023 3:26 PM T [facility] Chloride 99 98 - 107 mmol/L 02/26/2023 3:26 PM EDT [facility] CO2 30 20 - 30 mmol/L 02/26/2023 3:26 PM [facility] Anion Gap 11 7 - 17 02/26/2023 3:26 PM [facility] Glucose 96 70 - 100 mg/dL 02/26/2023 3:26 PM [facility] BUN 8 6 - 20 mg/dL 02/26/2023 3:26 PM [facility] Creatinine 0.76 0.40 - 1.30 mg/dL 02/26/2023 3:26 PM [facility] Calcium 10.0 8.8 - 10.2 mg/dL 02/26/2023 3:26 PM [facility] BUN/Creatinine Ratio 10.5 8.0 - 23.0 02/26/2023 3:26 PM [facility] Total Protein 7.7 6.6 - 8.7 g/dL 023 3:26 PM [facility] Albumin 5.0(H) 3.6 - 4.9 g/dL 02/26/2023 3:26 PM [facility] Total Bilirubin 0.4 <=1.2 mg/dL 02/27/20 3:26 PM [facility] Alkaline Phosphatase 57 9 - 122 U/L 02/26/2023 3:26 PM [facility] Alanine Aminotransferase (ALT) 27 9 - 59 U/L 02/26/2023 3:26 PM [facility] Comment:Calcium dobesilate c an cause artificially low ALT results at therapeutic concentrations Aspartate Aminotransferase (AST) 40(H) 10 - 35 U/L 02/26/2023 3:26 PM [facility] Globulin 2.7 2.3 - 3.5 g/dL 02/26/2023 3:26 PM [facility] A/G Ratio 1.9 1.0 - 2.2 02/26/2023 3:26 PM [facility] AST/ALT Ratio 1.5 Reference Range Not Established 02/26/2023 3:26 PM [facility] eGFR (Creatinine) >60 >=60 mL/min/1.73m2 02/26/2023 3:26 PM [facility] Comment: Values < 60 mL/min/1.73 m2 may indicate CKD if present for more than three months AND creatinine is at steady state. The eGFR provides a rough estimate of kidney function. On 03/19/22 all [facility] Clinical Labs and Epic began using a [id number]-[id number] formula for estimating GFR called CKD-EPI Creatinine 2020. This equation reports eGFR based on creatinine, patient age, clinical sex, and is standardized to a body surface area of 1.73 m2. For the same creatinine, this new race-free eGFR will be lower than prior reported Black eGFR results and higher than prior Non-Black eGFR results. For further guidance, please refer to the CKD: Adult [employer] Attorney Signature pathway. Blood Venipuncture / Unknown 02/26/2023 11:12 AM EDT 02/26/2023 11:12 AM EDT Ivana Martinez GRANT ADMINISTRATOR LAB BLOOD ORDERABLES Fi nal Result [address] [phone] * (ABNORMAL) Hemoglobin A1c (02/26/2023 11:12 AM EDT) [employer] Signature Hemoglobin A1c 5.8(H) 4.0 - 5.6 % 02/26/2023 7:37 PM T [facility] Comment: Hemoglobin A1c values of 5.7-6.4 % [...] mg/dL 120 mg/dL 02/26/2023 7:37 PM EDT [facility] Comment: Estimated average glucose (eAG) is a calculated value designed to estimate ??the expected average blood glucose level throughout the day from a single ??measurement of ??glycated hemoglobin A1C (HbA1c) and follows the calculation proposed by the [place] Diabetes [employer] (Diabetes Care 31: 1-6, 2008). It may have less accuracy in children, women and patients with certain erythrocyte disorders. Blood Venipuncture / Unknown 02/26/2023 11:12 AM EDT 02/26/2023 11:12 AM EDT us Ivana Martinez APRN LAB BLOOD ORDERABLES Fi nal Result Performing Organization Address [facility] Co de Phone Number [address] [phone] * (ABNORMAL) Lipid panel (02/26/2023 11:12 AM EDT) Cholesterol 180 See Comment mg/dL 02/26/2023 3:26 PM EDT [facility] Comment: Total Cholesterol (mg/dL) ?Adults (>18 years) ? Children (<18 years) Desirable ?<200 ? <170 Borderline-High ?200-239 ?170-199 High ? >=240 ?>=200 ? HDL 62 >=40 mg/dL 02/26/2023 3:26 PM [facility] Triglycerides 161(H) See Comment mg/dL 02/26/2023 3:26 PM [facility] Comment: Triglycerides (mg/dL) ?Adults (>18 years) ? Children (<18 years) Desirable ?<150 ? Not Established Borderline-High ?150-199 ?Not Established High ? 200-499 ?Not Established ?? Chol/HDL Ratio 2.9 0.0 - 5.0 02/26/2023 3:26 PM [facility] LDL Calculated 91 See Comment mg/dL 02/26/2023 3:26 PM [facility] Comment: Effective 01/09/2022, LDL is calculated using the El-NIH equation, which is more accurate than the Friedewald and Gato-Sanchez equations. LDL Cholesterol (mg/dL) ?Adults (>18 years) ? Children (<18 years) Desirable ?<100 ? <110 Above Desirable ?100-129 ?Not Established Borderline-High ?130-159 ?110- 129 High ? 160-189 ?>=130 Very High? >=190 ? Not Established Blood Venipuncture / Unknown 02/26/2023 11:12 AM EDT 02/26/2023 11:12 AM EDT Ivana Martinez GRANT ADMINISTRATOR LAB BLOOD ORDERABLES [place] [address], [facility] [phone] * (ABNORMAL) Vitamin D, 25-hydroxy (02/26/2023 11:12 AM EDT) Vitamin [id number] 11.1(L) 30.0 - 100.0 ng/mL 02/27/2023 10:42 AM EDT [facility] Comment: Vitamin D Status: ??Results in ng/mL <10.0: ??Deficient 10.0 - 29.9: ??Insufficient 30.0 - 100.0: ??Sufficient >100: ??Toxic Reference ranges established by [employer]. Blood Venipuncture / Unknown 02/26/2023 11:12 AM EDT 02/26/2023 11:12 AM EDT Ivaan Petastonle GRANT ADMINISTRATOR LAB BLOOD ORDERABLES Fi nal Result Performing Organization Address [facility] Co de Phone Number [address] [phone] * (ABNORMAL) Gamma GT (02/26/2023 11:12 AM EDT) GGT 108(H) <48 U/L 02/26/2023 3:26 PM EDT [facility] Blood Venipuncture / Unknown 02/26/2023 11:12 AM EDT 02/26/2023 11:12 AM EDT [facility] GRANT ADMINISTRATOR LAB BLOOD ORDERABLES Fi nal Result Performing Organization Address [facility] Number [address] [phone] * TSH w/reflex to FT4 ( GH LMW Q YH) (02/26/2023 11:12 AM EDT) Thyroid Stimulating Hormone 2.550 See Comment ??IU/mL 02/26/2023 3:26 PM EDT [facility] Comment: Male & Non- Females: 0.270-4.200 ??IU/mL 1st Trimester: 0.110-3.480 ??IU/mL 2nd Trimester: 0.320-3.850 ??IU/mL Blood Venipuncture / Unknown 02/26/2023 11:12 AM EDT 02/26/2023 11:12 AM EDT Ivana Pettingle GRANT ADMINISTRATOR LAB BLOOD ORDERABLES Fi nal Result Performing Organization Address [facility] Co de Phone Number [address] [phone] documented in this encounter Visit Diagnoses Diagnosis Hypertension, unspecified type Hypothyroidism, unspecified type LFT elevation Other abnormal blood chemistry Vitamin D deficiency Unspecified vitamin D deficiency documented in this encounter Additional Health Concerns Assessment Noted Time PHQ-9 Depression Total Score: 0 02/27/20 23 10:41 AM EDT documented as of this encounter Care Teams Well Site Drilling Engineer Relationship Specialty Start Date End Date Ivana Martinez APRN PCP - General Family Medicine 05/13/22 01/27/24 documented as of this encounter
--- OUTSIDE RECORDS SUMMARY | 2024-09-09 11:06 | XMS_ITS | Encounter Summary ---
Author Organization [facility] Address [address] [place] [address] Care Team Providers Care Hot Plate Plywood Press Operator Name Role Phone Ivana Martinez HECTOR Primary Care Provider Reason for Visit * Reason Onset Date Comments Medication Refill 05/02/2022 Encounter Details Date Type Department Care Team (Late st Contact Info) Description 05/02/2022 Refill [facility] Internal Medicine [address], [address] [place] [address] Zoya Clayton MD [address] [place] [phone] Medication Refill Social History Tobacco Use [...] documented as of this encounter Care Teams Hot Plate Plywood Press Operator Relationship Specialty Start Date End Date Ivana Martinez APRN PCP - General Family Medicine 05/13/22 01/27/24 documented as of this encounter
--- OUTSIDE RECORDS SUMMARY | 2024-09-09 11:06 | XMS_ITS | Encounter Summary ---
Author Organization [facility] Address [address] [place] [address] Care Team Providers Care Manager Aviation Name Role Phone Ivana Martinez HECTOR Primary Care Provider Encounter Details Date Type Department Care Team (Late st Contact Info) Description 08/22/2021 Scanned Document [facility] Internal Medicine [address], 1[address] [place], [place] [address] Zoya Clayton MD [address] [phone] Social History Tobacco Use Types [...] documented as of this encounter Care Teams Manager Aviation Relationship Specialty Start Date End Date Ivana Martinez APRN PCP - General Family Medicine 05/13/22 01/27/24 documented as of this encounter
--- OUTSIDE RECORDS SUMMARY | 2024-09-09 11:06 | XMS_ITS | Encounter Summary ---
Author Organization [facility] Address [address] [place] [address] Care Team Providers Care Deli Cutter Slicer Name Role Phone Ivana Martinez HECTOR Primary Care Provider Encounter Details Date Type Department Care Team (Late st Contact Info) Description 11/13/2020 Scanned Document [facility] Internal Medicine [address], [address] [place], [place] [address] Zoya Clayton MD [facility] [address] [phone] Social History Tobacco Use Types [...] documented as of this encounter Care Teams Deli Cutter Slicer Relationship Specialty Start Date End Date Ivana Martinez APRN PCP - General Family Medicine 05/13/22 01/27/24 documented as of this encounter
--- OUTSIDE RECORDS SUMMARY | 2024-09-09 11:06 | XMS_ITS | Encounter Summary ---
Author Organization [facility] Address [address] [place] [address] Care Team Providers Care Lunch Counter Manager Name Role Phone Ivana Martinez HECTOR Primary Care Provider Reason for Visit * Reason Comments Medication Refill Encounter Details Date Type Department Care Team (Late st Contact Info) Description 04/01/2022 Refill [facility] Internal Medicine [address], [address] [place] [address] Zoya Clayton MD [facility] [address] [phone] Medication Refill Social History Tobacco [...] encounter Miscellaneous Notes * Telephone Encounter - SonyaSavannah - 04/01/2022 12:36 PM EDT LUIS FELIPE 09/10/2021 NOV 05/13/22 w/ SP Forrest pt. documented in this encounter Plan of Treatment Not on file documented as of this encounter Visit Diagnoses Not on filedocumented in this encounter Additional Health Concerns Assessment Noted Time PHQ-9 Depression Total Score: 2 09/10/19 10:11 AM EST documented as of this encounter Care Teams Lunch Counter Manager Relationship Specialty Start Date End Date Ivana Martinez APRN PCP - General Family Medicine 05/13/22 01/27/24 documented as of this encounter
--- OUTSIDE RECORDS SUMMARY | 2024-09-09 11:06 | XMS_ITS | Clinical Summary ---
Author Organization [facility] Address [address] [place] [address] Care Team Providers Care Parts And Service Manager Name Role Phone Pcp, No Primary Care Provider Unavailabl e Allergies No known active allergies Social History Tobacco Use Types Packs/Day Years Used Date Smoking Tobacco: Never Assessed Sex and Gender Information Value Date Recorded Sex Assigned at Not on file Gender Identity Not on file Sexual Orientation Not on file Plan of Treatment Health Maintenance Due Date Last Done Comments Hepatitis C Virus Screening 1986 HIV Screening 1999 DTaP/Tdap/Td Vaccines (1 - Tdap) 2005 Hepatitis B Vaccines (1 of 3 - 19+ 3-dose series) 2005 Influenza Vaccine 03/04/2024 05/13/2022, 06/06/2021 COVID-19 Vaccine (3 - 2023-2 5 season) 2024 02/03/2021, 01/11/2021 HPV Vaccines Aged Out No longer eligi ble based on patient's age to complete this topic Pneumococcal Vaccine: Pediatric (0-5 Years) and At-Risk Patients (6 to 49 Years) Aged Out No longer eligible b ased on patient's age to complete this topic Care Teams Parts And Service Manager Relationship Specialty Start Date End Date Pcp, No PCP - General 10/21/22
--- OUTSIDE RECORDS SUMMARY | 2024-09-09 11:06 | XMS_ITS | Encounter Summary ---
Author Organization [facility] Address [address] [place] [address] Care Team Providers Care Creative Writing Teacher Name Role Phone Ivana Martinez HECTOR Primary Care Provider Encounter Details Date Type Department Care Team (Late st Contact Info) Description 09/26/2021 Scanned Document [facility] Internal Medicine [address], 1st [address] [place], [place] [id number] Zoya Clayton MD [facility] [address] [phone] Social History Tobacco Use Types [...] documented as of this encounter Care Teams Creative Writing Teacher Relationship Specialty Start Date End Date Ivana Martinez APRN PCP - General Family Medicine 05/13/22 01/27/24 documented as of this encounter
--- OUTSIDE RECORDS SUMMARY | 2024-09-09 11:06 | XMS_ITS | Encounter Summary ---
Author Organization [facility] Address [address] [place] [address] Care Team Providers Care Portable Trackman Name Role Phone Ivana Martinez APRN Primary Care Provider Encounter Details Date Type Department Care Team (Late st Contact Info) Description 05/05/2019 Scanned Document Scarlet Espinosa M.D. [address] [facility] [address] [place] [address] Jeffy Espinosa MD [address] [place] [phone] Social History Tobacco Use Types Packs/Day Years Used Date Smoking Tobacco: Never Smokeless Tobacco: Former Chew Alcohol Use Standard Drinks/Week Comments Yes 0 (1 standard drink = 0.6 oz pur e alcohol) 7-8 drinks / week AUDIT-C Answer Date Recorded Frequency of Alcohol Consumption 2-3 times a wee k 05/05/2019 Average Number of Drinks Not on file 019 Frequency of Binge Drinking Not on file 09/2018 Sex and Gender Information Value Date Recorded [...] Resolved Time R/O COVID-19 03/19/2021 03/19/2021 03/19/2021 8:4 9 PM EDT documented as of this encounter Care Teams Portable Trackman Relationship Specialty Start Date End Date vIana Martinez APRN PCP - General Family Medicine 05/13/22 01/27/24 documented as of this encounter
--- OUTSIDE RECORDS SUMMARY | 2024-09-09 11:06 | XMS_ITS | Encounter Summary ---
Author Organization [facility] Address [address] [place] [address] Care Team Providers Care Supervisor Policy Change Clerks Name Role Phone Ivana Martinez APRN Primary Care Provider Encounter Details Date Type Department Care Team (Late st Contact Info) Description 05/06/2019 Scanned Document Scarlet Espinosa M.D. [address] [facility] [address] [place] [address] Jeffy Espinosa MD [address] [place] [phone] Social History Tobacco Use Types Packs/Day [...] Procedure Name Priority Date/Time Associated Diagnosis Comments CBC AND DIFFERENTIAL Routine 05/05/2019 documented in this encounter Results * CBC and differential (05/05/2019) Blood Jeffy Espinosa MD LAB BLOOD ORDERABLES Fin al Result documented in this encounter Visit Diagnoses Not on filedocumented in this encounter Additional Health Concerns Infection Onset Date Last Indicated Resolved Time R/O COVID-19 03/19/2021 03/19/2021 03/19/2021 8:49 PM EDT documented as of this encounter Care Teams Supervisor Policy Change Clerks Relationship Specialty Start Date End Date Ivana Martinez APRN PCP - General Family Medicine 05/13/22 01/27/24 documented as of this encounter
--- OUTSIDE RECORDS SUMMARY | 2024-09-09 11:06 | XMS_ITS | Encounter Summary ---
Author Organization [facility] Address [address] [place] [address] Care Team Providers Care Target Aircraft Technician Name Role Phone Ivana Martinez HECTOR Primary Care Provider Reason for Visit * Reason Comments Medication Refill Encounter Details Date Type Department Care Team (Late st Contact Info) Description 06/20/2021 Refill [facility] Internal Medicine [address] [place] [address] Zoya Clayton MD [facility] [address] [phone] Medication Refill Social History Tobacco [...] * Telephone Encounter - Savannah Hassan - 06/20/2021 3:06 PM EST LUIS FELIPE 05/21/2021 NOV Visit [...] documented as of this encounter Care Teams Target Aircraft Technician Relationship Specialty Start Date End Date Ivana Martinez APRN PCP - General Family Medicine 05/13/22 01/27/24 documented as of this encounter
--- OUTSIDE RECORDS SUMMARY | 2024-09-09 11:06 | XMS_ITS | Encounter Summary ---
Author Organization [facility] Address [address] [place] [address] Care Team Providers Care Paper Processing Machine Helper Name Role Phone Pcp, No Primary Care Provider Unavailabl e Reason for Referral * Diagnostic Imaging (Routine) - Closed Specialty Diagnoses / Procedures Referred By Christian chatman Referred To Contact Diagnoses Microhematuria Procedures CT Urogram w w/o contrast w/3D Matthew Rodney MD [address] [place] [id number] Referral ID Status Reason Start Date Expiration Date Visits Re quested Visits Authorized [id number] Closed 10/08/2022 12/11/2022 1 1 Reason for Visit * Diagnostic Imaging (Routine) - Closed Specialty Diagnoses / Procedures Referred By Christian chatman Referred To Contact Diagnoses Microhematuria Procedures CT Urogram w w/o contrast w/3D Matthew Rodney MD [address] [place] [id number] Referral ID Status Reason Start Date Expiration Date Visits Re quested Visits Authorized [id number] Closed 10/08/2022 12/11/2022 1 1 Encounter Details Date Type Department Care Team ([facility] st Contact Info) Description 10/21/2022 2:14 PM EDT Hospital Encounter [facility] [address] [place] [phone] Microhematuria Social History Tobacco Use Types Packs/Day [...] PM EDT CLINICAL INFORMATION: Microscopic hematuria COMPARISON: ??None. TECHNIQUE: ??CT Abdomen and Pelvis with and w/o contrast. IV Contrast: ??75 cc Omnipaque 350. Protocol: Hematuria. ??Oral Contrast: Not given. ??Iterative reconstruction was utilized to minimize dose. FINDINGS: Lower Chest: Unremarkable. Liver: Focal fatty infiltration adjacent to the falciform ligament otherwise unremarkable. Gallbladder/Biliary: Unremarkable. No biliary dilation. Spleen: Unremarkable. Pancreas: Unremarkable. No masses or ductal dilation. Adrenals: Unremarkable. Kidneys: No suspicious renal mass. ??No nephroureterolithiasis or obstructive uropathy. Opacified portions of the collecting systems/ureters are without suspicious abnormality. Retroperitoneum: No aortic aneurysm. No adenopathy. Gastrointestinal: ??Focal fatty infiltration along the ascending colon likely from prior inflammation otherwise unremarkable. ??No obstruction. Urinary Bladder: Unremarkable. Reproductive: Unremarkable. Bones: ??No acute or suspicious abnormalities. ?? Procedure Note Mc, Scott B, MD - 10/21/2022 CLINICAL INFORMATION: Microscopic hematuria [...] the findings seen on the standard CTsequences. Matthew Phillips MD IMG CT ORDERABLES documented in this encounter Visit Diagnoses Diagnosis [...] mL documented in this encounter Care Teams Paper Processing Machine Helper Relationship Specialty Start Date End Date Pcp, No PCP - General 10/21/22 documented as of this encounter
--- OUTSIDE RECORDS SUMMARY | 2024-09-09 11:06 | XMS_ITS | Encounter Summary ---
Author Organization [facility] Address [address] [place] [address] Care Team Providers Care Medical Technologist Clinical Name Role Phone Ivana Martinez HECTOR Primary Care Provider Reason for Visit * Reason Comments Medication Refill Encounter Details Date Type Department Care Team (Late st Contact Info) Description 12/30/2021 Refill [facility] Gastroenterology [facility] [address] [facility] [address] [place], [place] [id number] Matthew Huynh MD [address] [place] [address] Medication Refill Social History Tobacco Use Types [...] documented as of this encounter Care Teams Medical Technologist Clinical Relationship Specialty Start Date End Date Ivana Martinez APRN PCP - General Family Medicine 05/13/22 01/27/24 documented as of this encounter
--- OUTSIDE RECORDS SUMMARY | 2024-09-09 11:07 | XMS_ITS | Encounter Summary ---
Author Organization [facility] Address [address] [place] [address] Care Team Providers Care Smudger Name Role Phone Ivana Martinez HECTOR Primary Care Provider Reason for Visit * Reason Onset Date Comments Medication Refill 06/25/2022 Encounter Details Date Type Department Care Team (Late st Contact Info) Description 06/25/2022 Refill [facility] Internal Medicine [address] [place] [address] Zoya Calyton MD [address] [place] [phone] Medication Refill Social History Tobacco Use [...] Answer Date Recorded PHQ-2 Total Score 0 05/13/2022 Sex and Gender Information Value Date Recorded [...] Noted Time PHQ-9 Depression Total Score: 0 05/13/20 9:31 AM EDT documented as of this encounter Care Teams Smudger Relationship Specialty Start Date End Date Ivana Martinez APRN PCP - General Family Medicine 05/13/22 01/27/24 documented as of this encounter
--- OUTSIDE RECORDS SUMMARY | 2024-09-09 11:07 | XMS_ITS | Encounter Summary ---
Author Organization [facility] Address [address] [place] [phone] Care Team Providers Care Headline Writer Name Role Phone Andrew Martinezhanie HECTOR Primary Care Provider Reason for Visit * Reason Comments Medication Refill Encounter Details Date Type Department Care Team (Late st Contact Info) Description 06/30/2022 Refill [facility] Internal Medicine [address] [place] [address] Souleymane Wilson DO [address] [place] [phone] Medication Refill Social History Tobacco Use Types [...] documented as of this encounter Care Teams Headline Writer Relationship Specialty Start Date End Date Ivana Martinez APRN PCP - General Family Medicine 05/13/22 01/27/24 documented as of this encounter
--- OUTSIDE RECORDS SUMMARY | 2024-09-09 11:07 | XMS_ITS | Encounter Summary ---
Author Organization [facility] and [facility] Address [address] [place] [address] Care Team Providers Care Band Director Name Role Phone Ivana Martinez APRN Primary Care Provider Encounter Details Date Type Department Care Team (Late st Contact Info) Description 05/13/2022 Transcribed Orders [place] - [address] [place], [place] [address] Ivana Martniez APRN [address] [facility] [address] [place] [address] Hypocalcemia (Primary Dx); Hypertension, unspecified type; Establishing care with new doctor, encounter for; Laboratory tests ordered as part of a complete physical exam (CPE); Hypothyroidism, unspecified type; Vitamin D deficiency; Alcohol drinker; Erectile dysfunction, unspecified erectile dysfunction type Social History Tobacco Use Types Packs/Day Years [...] Encounter Note - Ivana Martinez APRN - 05/13/2022 10:45 AM EDT He should resume his thyroid med, thyroid is slightly underactive. Vit D is low, needs to be on supplementation will send to pharm Vit B12 low, needs B12 supplementation via inj, if he agrees we can schedule him weekly with our Nurse. If not he can try OTC sublingual meds. Testosterone is ok Triglyceride and LFT are elevated, has to cut back on the etoh intake and fatty food intake. Shouldtake Fish oil OTC * Result Encounter Note - Arline Lau PCT - 05/13/2022 10:45 AM EDT Spoke w/ pt and he verbalized understanding of test result. He agreed in getting Vit b12 injection here at the office. Scheduled initial B12 shot for tomorrow. documented in this encounter Plan of Treatment Not on file documented as of this encounter Procedures Procedure Name Priority Date/Time Associated Diagnosis Comments COMPREHENSIVE METABOLIC PANEL Routine 05/13/2022 10:46 AM EDT Hypertension, unspecified type TSH W/REFLEX TO FT4 (BH GH LMW Q YH) Routine 05/13/2022 10:46 AM EDT Hypertension, unspecified type Establishing care with new doctor, encounter for Laboratory tests ordered as part of a complete physical exam (CPE) Hypothyroidism, unspecified type VITAMIN D, 25-HYDROXY Routine 05/13/2022 10:46 AM EDT Hypertension, unspecified type Establishing care with new doctor, encounter for Laboratory tests ordered as part of a complete physical exam (CPE) Vitamin D deficiency THYROID ANTIBODY PANEL (BH GH LMW Q YH) Routine 05/13/2022 10:46 AM EDT Hypothyroidism, unspecified type CBC WITH AUTO DIFFERENTIAL Routine 05/13/2022 10:46 AM EDT Hypertension, unspecified type Establishing care with new doctor, encounter for Laboratory tests ordered as part of a complete physical exam (CPE) HEPATITIS C AB WITH REFLEX TO HCV PCR Routine 05/13/2022 10:46 AM EDT Hypertension, unspecified type THYROID PEROXIDASE ANTIBODY Routine 05/13/2022 10:46 AM EDT Hypothyroidism, unspecified type CBC AND DIFFERENTIAL Routine 05/13/2022 10:46 AM EDT Hypertension, unspecified type Establishing care with new doctor, encounter for Laboratory tests ordered as part of a complete physical exam (CPE) T4, FREE Routine 05/13/2022 10:46 AM EDT Hypertension, unspecified type Establishing care with new doctor, encounter for Laboratory tests ordered as part of a complete physical exam (CPE) Hypothyroidism, unspecified type TESTOSTERONE, TOTAL ( GH L LMW YH) Routine 05/13/2022 10:46 AM EDT Erectile dysfunction, unspecified erectile dysfunction type PTH, INTACT WITHOUT CALCIUM Routine 05/13/2022 10:46 AM EDT Hypocalcemia HEMOGLOBIN A1C Routine 05/13/2022 10:46 AM EDT Hypertension, unspecified type Establishing care with new doctor, encounter for Laboratory tests ordered as part of a complete physical exam (CPE) GAMMA GT Routine 05/13/2022 10:46 AM EDT Alcohol drinker VITAMIN B12 Routine 05/13/2022 10:46 AM EDT Hypertension, unspecified type Establishing care with new doctor, encounter for Laboratory tests ordered as part of a complete physical exam (CPE) LIPID PANEL Routine 05/13/2022 10:46 AM EDT Hypertension, unspecified type Establishing care with new doctor, encounter for Laboratory tests ordered as part of a complete physical exam (CPE) COMPREHENSIVE METABOLIC PANEL Routine 05/13/2022 10:46 AM EDT Hypertension, unspecified type documented in this encounter Results * T4, free (05/13/2022 10:46 AM EDT) Free T4 1.27 See Comment ng/dL 05/13/2022 2:16 PM EDT [facility] Comment: For patients taking levothyroxine, the daily therapeutic dose may cause some patients to have slightly higher FT4 than in the general population and TSH should be the main arbiter of dosing adequacy for those whose hypothyroidism is of primary origin (ie. not related to hypothalamic-pituitary disease.) Of 26 commonly used pharmaceuticals tested in vitro, only furosemide caused elevated free thyroxine (FT4) findings at the daily therapeutic dosage level. Male & Non- Females: 0.80-1.70 ng/dL 1st Trimester: 0.90-1.40 ng/dL 2nd Trimester: 0.70-1.30 ng/dL Blood Venipuncture / Unknown 05/13/2022 10:46 AM EDT 05/13/2022 10:46 AM EDT Ivanabhavin Martinez APRN LAB BLOOD ORDERABLES Fi nal Result Performing Organization Address [facility]/State/[facility] Co de Phone Number [address] [phone] * PTH, intact without calcium (05/13/2022 10:46 AM EDT) Parathyroid Hormone, Intact 35.0 15.0 - 65.0 pg/mL 05/13/2022 12:49 PM EDT [facility] Blood Venipuncture / Unknown 05/13/2022 10:46 AM EDT 05/13/2022 10:46 AM EDT Ivanabhavin Martinez PLACEMENT COORDINATOR LAB BLOOD ORDERABLES Fi nal Result [facility] [address] [place] [address], [facility] [phone] * (ABNORMAL) Comprehensive metabolic panel (05/13/2022 10:46 AM EDT) Sodium 138 136 - 144 mmol/L 05/13/2022 1:07 PM [facility] Potassium 3.8 3.3 - 5.3 mmol/L 05/13/2022 1:07 PM [facility] Chloride 98 98 - 107 mmol/L 05/13/2022 1:07 PM [facility] CO2 28 20 - 30 mmol/L 05/13/2022 1:07 PM [facility] Anion Gap 12 7 - 17 05/13/2022 1:07 PM [facility] Glucose 105(H) 70 - 100 mg/dL 05/13/2022 1:07 PM [facility] BUN 6 6 - 20 mg/dL 05/13/2022 1:07 PM [facility] Creatinine 0.78 0.40 - 1.30 mg/dL 05/13/2022 1:07 PM [facility] Calcium 9.6 8.8 - 10.2 mg/dL 05/13/2022 1:07 PM [facility] BUN/Creatinine Ratio 7.7(L) 8.0 - 23.0 05/04 1:07 PM [facility] Total Protein 7.5 6.6 - 8.7 g/dL 05/13/2022 1:07 PM [facility] Albumin 5.2(H) 3.6 - 4.9 g/dL 05/13/2022 1:07 PM [facility] Total Bilirubin 0.5 <=1.2 mg/dL 05/13/20 1:07 PM [facility] Alkaline Phosphatase 81 9 - 122 U/L 05/2022 1:07 PM [facility] Alanine Aminotransferase (ALT) 45 9 - 59 U/L 05/13/2022 1:07 PM [facility] Comment:Calcium dobesilate c an cause artificially low ALT results at therapeutic concentrations Aspartate Aminotransferase (AST) 48(H) 10 - 35 U/L 05/13/2022 1:07 PM EDT [facility] Globulin 2.3 2.3 - 3.5 g/dL 05/13/2022 1:07 PM [facility] A/G Ratio 2.3(H) 1.0 - 2.2 05/13/2022 1:07 PM [facility] AST/ALT Ratio 1.1 See Comment 05/13/2022 1:07 PM [facility] Comment: Adult with mild elevations of transaminases (< 5 times upper limit of normal): AST/ALT > 2 suggests alcoholic liver injury AST/ALT < 1 suggests non-alcoholic fatty liver disease (NAFLD) (healthy): AST/ALT can be > 3 on day 0 AST/ALT < 2 by day 5 The thresholds provided focus on the most common etiologies of elevated serum transaminase levels and the associated alteration of AST:ALT ratios; they are not intended to exclude other feasible and clinically appropriate possibilities eGFR (Creatinine) >60 >=60 mL/min/1.73 m2 05/13/2022 1:07 PM [facility] Comment:Estimated glomerular filtration rate (eGFR) was calculated using the improved CKD-EPI Creatinine (2020) equation. The eGFR provides a rough estimate of kidney function within 30% variability. Values under 60 mL/min/1.73 m2 may indicate CKD if noted for more than 3 months. The eGFR is only valid if creatinine is at steady state. Blood Venipuncture / Unknown 05/13/2022 10:46 AM EDT 05/13/2022 10:46 AM EDT us Ivana Martinez PLACEMENT COORDINATOR LAB BLOOD ORDERABLES Fi nal Result [address] [phone] * (ABNORMAL) CBC auto differential (05/13/2022 10:46 AM EDT) WBC 5.5 4.0 - 11.0 x1000/??L 05/13/2022 12:09 PM EDT [facility] RBC 5.19 4.00 - 6.00 M/??L 05/13/2022 12:09 PM [facility] Hemoglobin 16.6 13.2 - 17.1 g/dL 05/13/2022 12:09 PM [facility] Hematocrit 45.70 38.50 - 50.00 % 05/13/2022 12:09 PM [facility] MCV 88.1 80.0 - 100.0 fL 05/13/2022 12:09 PM [facility] MCH 32.0 27.0 - 33.0 pg 05/13/2022 12:09 PM [facility] MCHC 36.3(H) 31.0 - 36.0 g/dL 05/13/2022 12:09 PM [facility] RDW-CV 12.7 11.0 - 15.0 % 05/13/2022 12:09 PM [facility] Platelets 323 150 - 420 x1000/??L 05/13/2022 12:09 PM [facility] MPV 9.5 8.0 - 12.0 fL 05/13/2022 12:09 PM [facility] Neutrophils 36.5(L) 39.0 - 72.0 % 05/13/2022 12:09 PM [facility] Lymphocytes 42.0 17.0 - 50.0 % 05/13/2022 12:09 PM [facility] Monocytes 9.2 4.0 - 12.0 % 05/13/2022 12:09 PM [facility] Eosinophils 11.2(H) 0.0 - 5.0 % 05/13/2022 12:09 PM [facility] Basophil 1.1 0.0 - 1.4 % 05/13/2022 12:09 PM [facility] Immature Granulocytes 0.0 0.0 - 1.0 % 05/13/2022 12:09 PM [facility] nRBC 0.0 0.0 - 1.0 % 05/13/2022 12:09 PM [facility] ANC(Abs Neutrophil Count) 1.99(L) 2.00 - 7.60 x 1000/??L 05/13/2022 12:09 PM [facility] Absolute Lymphocyte Count 2.29 0.60 - 3.70 x 1000/??L 05/13/2022 12:09 PM [facility] Monocyte Absolute Count 0.50 0.00 - 1.00 x 1000/??L 05/13/2022 12:09 PM EDT [facility] Eosinophil Absolute Count 0.61 0.00 - 1.00 x 1000/??L 05/13/2022 12:09 PM EDT [facility] Basophil Absolute Count 0.06 0.00 - 1.00 x 1000/??L 05/13/2022 12:09 PM T [facility] Absolute Immature Granulocyte Count 0.00 0.00 - 0.30 x 1000/??L 05/13/2022 12:09 PM T [facility] Absolute nRBC 0.00 0.00 - 1.00 x 1000/??L 05/13/2022 12:09 PM T [facility] Blood Venipuncture / Unknown 05/13/2022 10:46 AM EDT 05/13/2022 10:46 AM EDT Ivanabhavin Martinez PLACEMENT COORDINATOR LAB BLOOD ORDERABLES Fi nal Result [address] [phone] * (ABNORMAL) Thyroid antibody panel ([facility]) (05/13/2022 10:46 AM EDT) Pathologist [facility] Thyroid Peroxidase Ab 163(H) 0 - 99 IU/mL 05/15/2022 1:01 PM EDT [facility] Thyroglobulin Ab <10.0 0 - 125 IU/mL 05/15/2022 1:01 PM EDT [facility] Blood Venipuncture / Unknown 05/13/2022 10:46 AM EDT 05/13/2022 10:46 AM EDT Ivanabhavin Martinez PLACEMENT COORDINATOR LAB BLOOD ORDERABLES Fi nal Result [address] [phone] * (ABNORMAL) THYROID PEROXIDASE ANTIBODY (05/13/2022 10:46 AM EDT) Thyroid Peroxidase Ab 163(H) 0 - 99 IU/mL 05/15/2022 1:01 PM EDT [facility] Blood Venipuncture / Unknown 05/13/2022 10:46 AM EDT 05/13/2022 10:46 AM EDT Ivana Martinez PLACEMENT COORDINATOR LAB BLOOD ORDERABLES Fi nal Result Performing Organization Address City/State/[facility] Co de Phone Number [address] [phone] * TESTOSTERONE, TOTAL (BH GH L LMW YH) (05/13/2022 10:46 AM EDT) Pathologist [facility] Testosterone, Total 302 229 - 902 ng/dL 05/13/2022 1:18 PM EDT [facility] Comment: The following testosterone reference ranges have been verified in our patient population. These reference ranges were established in male participants of four epidemiologic studies: the FHS, the Male Aging Study (EMAS), the Osteoporotic Fractures in Men Study (MrOS), and the Sibling Study of Osteoporosis (SIBLOS). Testosterone assays were cross-calibrated against the Centers for Disease Control and Prevention Clinical Reference Laboratory assay. The reference ranges are presented by decades of age in ALL men regardless of BMI status. Decade (Years) ?Testosterone Reference Range (ng/dL) 19 to 39 ?229-902 40 to 49 ?208-902 50 to 59 ?192-902 60 to 69 ?190-902 70 to 79 ?190-902 80 to 89 ?119-902 Reference: Angus ANDRE et al. Harmonized Reference Ranges for Circulating Testosterone Levels in Men of Four Cohort Studies in the [place] and [place]. J Clin Endocrinol Metab. 2017 Nov 1;102(4):2522-8847. Blood Venipuncture / Unknown 05/13/2022 10:46 AM EDT 05/13/2022 10:46 AM EDT Ivanabhavin Martinez PLACEMENT COORDINATOR LAB BLOOD ORDERABLES Fi nal Result [address] [phone] * (ABNORMAL) Gamma GT (05/13/2022 10:46 AM EDT) GGT 92(H) <48 U/L 05/13/2022 12:53 PM EDT [facility] Blood Venipuncture / Unknown 05/13/2022 10:46 AM EDT 05/13/2022 10:46 AM EDT Ivana [employer]lilibeth PLACEMENT COORDINATOR LAB BLOOD ORDERABLES Fi nal Result Performing Organization Address [facility] de Phone Number [address] [phone] * (ABNORMAL) Vitamin D, 25-hydroxy (05/13/2022 10:46 AM EDT) Vitamin R05-Axeknts 16.9(L) 30.0 - 100.0 ng/mL 05/13/2022 1:47 PM EDT [facility] Comment: Vitamin D Status: ??Results in ng/mL <10.0: ??Deficient 10.0 - 29.9: ??Insufficient 30.0 - 100.0: ??Sufficient >100: ??Toxic Reference ranges established by [employer]. Blood Venipuncture / Unknown 05/13/2022 10:46 AM EDT 05/13/2022 10:46 AM EDT Ivana Martinez PLACEMENT COORDINATOR LAB BLOOD ORDERABLES Fi nal Result Performing Organization Address [facility]/ZIP Nd de Phone Number [address] [phone] * Hepatitis C Ab with reflex to HCV PCR (05/13/2022 10:46 AM EDT) Hepatitis C Ab Initial Result 0.03 S/CO 05/13/2022 1:44 PM EDT [facility] Hepatitis C Ab Interpretation Non-React lilo Non-React lilo 05/13/2022 1:44 PM EDT [facility] Blood Venipuncture / Unknown 05/13/2022 10:46 AM EDT 05/13/2022 10:46 AM EDT [facility] PLACEMENT COORDINATOR LAB BLOOD ORDERABLES Fi nal Result Performing Organization Address [facility] de Phone [address] [phone] * (ABNORMAL) Lipid panel (05/13/2022 10:46 AM EDT) [facility] Cholesterol 185 See Comment mg/dL 05/13/2022 1:07 PM EDT [facility] Comment: Total Cholesterol (mg/dL) ?Adults (>18 years) ? Children (<18 years) Desirable ?<200 ? <170 Borderline-High ?200-239 ?170-199 High ? >=240 ?>=200 ? HDL 63 >=40 mg/dL 05/13/2022 1:07 PM [facility] Triglycerides 268(H) See Comment mg/dL 05/13/2022 1:07 PM [facility] Comment: Triglycerides (mg/dL) ?Adults (>18 years) ? Children (<18 years) Desirable ?<150 ? Not Established Borderline-High ?150-199 ?Not Established High ? 200-499 ?Not Established ?? Chol/HDL Ratio 2.9 0.0 - 5.0 05/13/2022 1:07 PM [facility] LDL Calculated 79 See Comment mg/dL 05/13/2022 1:07 PM [facility] Comment: Effective 01/09/2022, LDL is calculated using the El-NIH equation, which is more accurate than the Friedewald and Gato-Sanchez equations. LDL Cholesterol (mg/dL) ?Adults (>18 years) ? Children (<18 years) Desirable ?<100 ? <110 Above Desirable ?100-129 ?Not Established Borderline-High ?130-159 ?110- 129 High ? 160-189 ?>=130 Very High? >=190 ? Not Established Blood Venipuncture / Unknown 05/13/2022 10:46 AM EDT 05/13/2022 10:46 AM EDT us Ivana Martinez PLACEMENT COORDINATOR LAB BLOOD ORDERABLES Fi nal Result [address] [phone] * (ABNORMAL) Vitamin B12 (05/13/2022 10:46 AM EDT) Vitamin B12 168(L) 232 - 1,245 pg/mL 05/13/2022 1:40 PM EDT [facility] Blood Venipuncture / Unknown 05/13/2022 10:46 AM EDT 05/13/2022 10:46 AM EDT Ivana Martinez PLACEMENT COORDINATOR LAB BLOOD ORDERABLES Fi nal Result Performing Organization Address [facility]/State/[place] [address], [facility] [phone] * (ABNORMAL) Hemoglobin A1c (05/13/2022 10:46 AM EDT) Hemoglobin A1c 5.7(H) 4.0 - 5.6 % 05/13/2022 1:42 PM EDT [facility] Comment: Hemoglobin A1c values of 5.7-6.4 [...] falsely high results. Estimated Average Glucose mg/dL 117 mg/dL 05/13/2022 1:42 PM EDT [facility] Comment: Estimated average glucose (eAG) is a calculated value designed to estimate ??the expected average blood glucose level throughout the day from a single ??measurement of ??glycated hemoglobin A1C (HbA1c) and follows the calculation proposed by the [place] [employer] (Diabetes Care 31: 1-6, 2008). It may have less accuracy in children, women and patients with certain erythrocyte disorders. Blood Venipuncture / Unknown 05/13/2022 10:46 AM EDT 05/13/2022 10:46 AM EDT Ivanaaldo Martinez PLACEMENT COORDINATOR LAB BLOOD ORDERABLES Fi nal Result [address] [phone] * (ABNORMAL) TSH w/reflex to FT4 (BH GH LMW Q YH) (05/13/2022 10:46 AM EDT) Thyroid Stimulating Hormone 4.470(H) See Comment ??IU/mL 05/13/2022 1:07 PM EDT [facility] Comment: Male & Non- Females: 0.270-4.200 ??IU/mL 1st Trimester: 0.110-3.480 ??IU/mL 2nd Trimester: 0.320-3.850 ??IU/mL Blood Venipuncture / Unknown 05/13/2022 10:46 AM EDT 05/13/2022 10:46 AM EDT Ivana Martinez APRN LAB BLOOD ORDERABLES Fi nal Result Performing Organization Address City/[facility] Co de Phone Number [address] [phone] documented in this encounter Visit Diagnoses Diagnosis Hypocalcemia- Primary Hypertension, unspecified type Establishing care with new doctor, encounter for Other reasons for seeking consultation Laboratory tests ordered as part of a complete physical exam (CPE) Hypothyroidism, unspecified type Vitamin D deficiency Unspecified vitamin D deficiency Alcohol drinker Other problems related to lifestyle Erectile dysfunction, unspecified erectile dysfunction type documented in this encounter Additional Health Concerns Assessment Noted Time PHQ-9 Depression Total Score: 0 05/13/20 22 9:31 AM EDT documented as of this encounter Care Teams Band Director Relationship Specialty Start Date End Date Ivana Martinez APRN PCP - General Family Medicine 05/13/22 01/27/24 documented as of this encounter
--- OUTSIDE RECORDS SUMMARY | 2024-09-09 11:07 | XMS_ITS | Encounter Summary ---
Author Organization [facility] Address [address] [place] [address] Care Team Providers Care Blanket Winder Operator Name Role Phone Ivana Martinez HECTOR Primary Care Provider Reason for Visit * Reason Onset Date Comments Medication Refill 05/30/2022 Encounter Details Date Type Department Care Team (Late st Contact Info) Description 05/30/2022 Refill [facility] Internal Medicine [address] [place] [address] Zoya Clayton MD [address] [place] [phone] Medication Refill Social History Tobacco Use [...] documented as of this encounter Care Teams Blanket Winder Operator Relationship Specialty Start Date End Date Ivana Martinez APRN PCP - General Family Medicine 05/13/22 01/27/24 documented as of this encounter
--- OUTSIDE RECORDS SUMMARY | 2024-09-09 11:07 | XMS_ITS | Encounter Summary ---
Author Organization [facility] Address [address] [place] [address] Care Team Providers Care Data Administrator Name Role Phone Ivana Martinez APRN Primary Care Provider Reason for Visit * Reason Onset Date Comments Medication Refill 10/20/2022 Encounter Details Date Type Department Care Team (Late st Contact Info) Description 10/20/2022 Refill [facility] Family Medicine [place] [address] [place] [address] Ivana Martinez APRN [address] [place] [phone] Medication Refill Social History Tobacco Use Types [...] PHQ-2 Answer Date Recorded PHQ-2 Total Score 1 09/02/2022 Sex and Gender Information Value Date Recorded Sex Assigned at Male 11/14/2022 12:08 PM EDT Legal Sex Male 9:58 AM EDT Gender Identity Male 11/14/2022 12:08 PM EDT Sexual Orientation Straight 11/14/2022 12 :08 PM EDT documented as of this encounter Miscellaneous Notes * Telephone Encounter - Ewa Blum - 10/21/2022 12:27 PM EDT Lv 09/02/2022 Nv 02/26/2023 documented in this encounter Plan of Treatment Not on file documented as of this encounter Visit Diagnoses Diagnosis Psoriasis Other psoriasis documented in this encounter Additional Health Concerns Assessment Noted Time PHQ-9 Depression Total Score: 1 09/02/19 23 1:40 PM EST documented as of this encounter Care Teams Data Administrator Relationship Specialty Start Date End Date Ivana Martinez APRN PCP - General Family Medicine 05/13/22 01/27/24 documented as of this encounter
--- OUTSIDE RECORDS SUMMARY | 2024-09-09 11:07 | XMS_ITS | Encounter Summary ---
Author Organization [facility] Address [address] [place] [address] Care Team Providers Care Fish Hatchery Laborer Name Role Phone Ivana Martinez HECTOR Primary Care Provider Reason for Visit * Reason Onset Date Comments Medication Refill 12/17/2022 Encounter Details Date Type Department Care Team (Late st Contact Info) Description 12/17/2022 Refill [facility] Dermatology at [address] [place], [place] [address] Noel Brandon MD [address] [place] [phone] Medication Refill Social History Tobacco Use Types [...] documented as of this encounter Care Teams Fish Hatchery Laborer Relationship Specialty Start Date End Date Ivana Martinez APRN PCP - General Family Medicine 05/13/22 01/27/24 documented as of this encounter
--- OUTSIDE RECORDS SUMMARY | 2024-09-09 11:07 | XMS_ITS | Encounter Summary ---
Author Organization [facility] Address [address] [place] [address] Care Team Providers Care Wrapper And Preserver Name Role Phone Ivana Martinez HECTOR Primary Care Provider Reason for Visit * Reason Onset Date Comments Medication Refill 12/31/2022 Encounter Details Date Type Department Care Team (Late st Contact Info) Description 12/31/2022 Refill [facility] Internal Medicine [address] [place] [address] Zoya Clayton MD [address] [place] [phone] Medication Refill Social History Tobacco Use [...] documented as of this encounter Care Teams Wrapper And Preserver Relationship Specialty Start Date End Date Ivana Martinez APRN PCP - General Family Medicine 05/13/22 01/27/24 documented as of this encounter
--- OUTSIDE RECORDS SUMMARY | 2024-09-09 11:07 | XMS_ITS | Encounter Summary ---
Author Organization [facility] Address [address] [place] [address] Care Team Providers Care Health Diagnostics Teacher Name Role Phone Ivana Martinez HECTOR Primary Care Provider Reason for Visit * Reason Comments Medication Refill Encounter Details Date Type Department Care Team (Late st Contact Info) Description 06/22/2022 Refill [facility] Internal Medicine [address] [place] [address] Zoya Clayton MD [facility] [address] [phone] Medication Refill Social History Tobacco [...] documented as of this encounter Care Teams Health Diagnostics Teacher Relationship Specialty Start Date End Date Ivana Martinez APRN PCP - General Family Medicine 05/13/22 01/27/24 documented as of this encounter
--- OUTSIDE RECORDS SUMMARY | 2024-09-09 11:07 | XMS_ITS | Encounter Summary ---
Author Organization [facility] Address [address] [place] [address] Care Team Providers Care Afterschool Name Role Phone Ivana Martinez APRN Primary Care Provider Encounter Details Date Type Department Care Team (Late st Contact Info) Description 09/03/2022 Transcribed Orders [facility] [address] [place], [place] [address] Ivana Martinez APRN [address] [facility] [address] [place] [address] Dysuria (Primary Dx) Social History Tobacco Use Types Packs/Day Years [...] Procedure Name Priority Date/Time Associated Diagnosis Comments URINE MICROSCOPIC ([facility] LMW YH) Routine 09/03/2022 10:54 AM EST Dysuria URINALYSIS-MACROSCOP IC W/REFLEX MICROSCOPIC Routine 09/03/2022 10:54 AM EST Dysuria C. TRACHOMATIS / N. GONORRHOEAE, NAAT ( GH L LMW YH) Routine 09/03/2022 10:54 AM EST Dysuria NEISSERIA GONORRHEA, NAAT (LAB ORDER ONLY) ([facility] L LMW YH) Routine 09/03/2022 10:54 AM EST Dysuria CHLAMYDIA TRACHOMATIS, NAAT (LAB ORDER ONLY) ([facility] L LMW YH) Routine 09/03/2022 10:54 AM EST Dysuria URINE CULTURE Routine 09/03/2022 10:54 AM EST Dysuria documented in this encounter Results * (ABNORMAL) Urine microscopic ([facility] LMW YH) (09/03/2022 10:54 AM EST) RBC/HPF, UA 6(H) 0 - 2 /HPF 09/03/2022 12:05 PM [facility] WBC/HPF, UA 1 0 - 5 /HPF 09/03/2022 12:05 PM [facility] Bacteria, UA Rare None-Rare /HPF 09/03/2022 12:05 PM [facility] Hyaline Casts, UA 1 0 - 3 /LPF 09/03/2022 12:05 PM [facility] Urine Collection / Unknown 09/03/2022 10:54 AM EST 09/03/2022 10:54 AM EST us Ivana Martinez CORE SETTER URINE ORDERABLES Final Result [address] [phone] * Chlamydia trachomatis, NAAT ( GH LMW YH) (09/03/2022 10:54 AM EST) Chlamydia DNA Probe Negative Negative 09/04/2022 11:43 AM [facility] Comment:The Aptima Combo2 As say is not intended for the evaluation of suspected sexual abuse or for other medico-legal indications. Specimen Source Urine (Dirty Catch) for DNA Probe 09/04/2022 11:43 AM [facility] Culture URINE SPECIMEN / Unknown Collection / Unknown 09/03/2022 10:54 AM EST 09/03/2022 10:54 AM EST Ivana Martinez APRN MICROBIOLOGY - GENERAL ORDERABLES Final Result Performing Organization Address [facility]/ZIP Co de Phone Number [address] [phone] * Neisseria gonorrhoeae, NAAT ( GH L LMW YH) (09/03/2022 10:54 AM EST) Neisseria gonorrhoeae, DNA Probe Negative Negative 09/04/2022 11:43 AM [facility] Comment:The Aptima Combo2 As say is not intended for the evaluation of suspected sexual abuse or for other medico-legal indications. Specimen Source Urine (Dirty Catch) for DNA Probe 09/04/2022 11:43 AM [facility] Culture URINE SPECIMEN / Unknown Collection / Unknown 09/03/2022 10:54 AM EST 09/03/2022 10:54 AM EST Ivana Martinez APRN MICROBIOLOGY - GENERAL ORDERABLES Final Result Performing Organization Address [facility]/ZIP Co de Phone Number [address] [phone] * (ABNORMAL) Urinalysis-macroscopic w/reflex microscopic (09/03/2022 10:54 AM EST) Clarity, UA Clear Clear 09/03/2022 11:59 AM [facility] Color, UA Yellow Yellow, Colorless 09/03/2022 11:59 AM [facility] Specific [place], UA 1.015 1.005 - 1.030 09/03/2022 11:59 AM [facility] pH, UA 6.5 5.5 - 7.5 09/03/2022 11:59 AM [facility] Protein, UA Negative Negative, Trace 09/03/2022 11:59 AM [facility] Glucose, UA Negative Negative 09/03/2022 11:59 AM [facility] Ketones, UA Negative Negative 09/03/2022 11:59 AM [facility] Blood, UA 2+(A) Negative 09/03/2022 11:59 AM [facility] Bilirubin, UA Negative Negative 09/03/2022 11:59 AM [facility] Leukocytes, UA Negative Negative 09/03/2022 11:59 AM [facility] Nitrite, UA Negative Negative 09/03/2022 11:59 AM [facility] Urobilinogen, UA <2.0 <=2.0 mg/dL 09/03/2022 11:59 AM [facility] Urine Collection / Unknown 09/03/2022 10:54 AM EST 09/03/2022 10:54 AM EST Ivana Martinez CORE SETTER URINE ORDERABLES Final Result Performing Organization Address City/[facility]/ZIP Co de Phone Number [address] [phone] * Urine culture (09/03/2022 10:54 AM EST) Urine Culture, Routine No Growth 09/04/2022 1:27 PM [facility] Culture URINE SPECIMEN OBTAINED BY CLEAN CATCH PROCEDURE / Unknown Collection / Unknown 09/03/2022 10:54 AM EST 09/03/2022 10:54 AM EST Ivana Martinez APRN MICROBIOLOGY - GENERAL ORDERABLES Final Result Performing Organization Address [facility]/ZIP Co de Phone Number [address] [phone] documented in this encounter Visit Diagnoses Diagnosis Dysuria- Primary documented in this encounter Additional Health Concerns Assessment Noted Time PHQ-9 Depression Total Score: 1 09/02/19 23 1:40 PM EST documented as of this encounter Care Teams Afterschool Relationship Specialty Start Date End Date Ivana Martinez APRN PCP - General Family Medicine 05/13/22 01/27/24 documented as of this encounter
--- OUTSIDE RECORDS SUMMARY | 2024-09-09 11:07 | XMS_ITS | Encounter Summary ---
Author Organization [facility] Address [address] [place] [address] Care Team Providers Care Security Associate Name Role Phone Ivana Martinez APRN Primary Care Provider Encounter Details Date Type Department Care Team (Late st Contact Info) Description 09/03/2022 Orders Only [facility] Family Medicine [address] [place] [address] Ivana Martinez APRN [address] [place] [address] [address] [place] [address] Hypertension, unspecified type; Hypercalcemia; Elevated LFTs; Dysuria Social History Tobacco Use Types Packs/Day Years [...] Encounter Note - Ivana Martinez APRN - 09/03/2022 9:58 AM EST Vit D still very low he \needs to be compliant with taking it once a week. Cut back on the alcohol, liver fnt is elevated Triglyceride improved A1c prediabetic. Urine has some blood but all testing was negative. I know he f/u with Dr Rodney on the urinary issues. * Result Encounter Note - Ewa Blum - 09/03/2022 9:58 AM EST Pt told. documented in this encounter Plan of Treatment Not on file documented as of this encounter Procedures Procedure Name Priority Date/Time Associated Diagnosis Comments COMPREHENSIVE METABOLIC PANEL Routine 09/03/2022 9:58 AM EST Hypertension, unspecified type Hypercalcemia Elevated LFTs TSH W/REFLEX TO FT4 (BH GH LMW Q YH) Routine 09/03/2022 9:58 AM EST Hypertension, unspecified type VITAMIN D, 25-HYDROXY Routine 09/03/2022 9:58 AM EST Hypertension, unspecified type CBC WITH AUTO DIFFERENTIAL Routine 09/03/2022 9:58 AM EST Hypertension, unspecified type TREPONEMA PALLIDUM (SYPHILIS) ANTIBODY W/REFLEX Routine 09/03/2022 9:58 AM EST Dysuria CBC AND DIFFERENTIAL Routine 09/03/2022 9:58 AM EST Hypertension, unspecified type HEMOGLOBIN A1C Routine 09/03/2022 9:58 AM EST Hypertension, unspecified type GAMMA GT Routine 09/03/2022 9:58 AM EST Hypertension, unspecified type Elevated LFTs LIPID PANEL Routine 09/03/2022 9:58 AM EST Hypertension, unspecified type COMPREHENSIVE METABOLIC PANEL Routine 09/03/2022 9:58 AM EST Hypertension, unspecified type Hypercalcemia Elevated LFTs documented in this encounter Results * (ABNORMAL) Comprehensive metabolic panel (09/03/2022 9:58 AM EST) Sodium 138 136 - 144 mmol/L 09/03/2022 12:57 PM [facility] Potassium 4.0 3.3 - 5.3 mmol/L 09/03/2022 12:57 PM [facility] Chloride 97(L) 98 - 107 mmol/L 09/03/2022 12:57 PM [facility] CO2 29 20 - 30 mmol/L 09/03/2022 12:57 PM [facility] Anion Gap 12 7 - 17 09/03/2022 12:57 PM [facility] Glucose 116(H) 70 - 100 mg/dL 09/03/2022 12:57 PM [facility] BUN 8 6 - 20 mg/dL 09/03/2022 12:57 PM [facility] Creatinine 0.86 0.40 - 1.30 mg/dL 09/03/2022 12:57 PM [facility] Calcium 9.5 8.8 - 10.2 mg/dL 09/03/2022 12:57 PM [facility] BUN/Creatinine Ratio 9.3 8.0 - 23.0 08/06 12:57 PM [facility] Total Protein 7.4 6.6 - 8.7 g/dL 09/03/2022 12:57 PM [facility] Albumin 5.0(H) 3.6 - 4.9 g/dL 09/03/2022 12:57 PM [facility] Total Bilirubin 1.0 <=1.2 mg/dL 09/03/19 12:57 PM [facility] Alkaline Phosphatase 70 9 - 122 U/L 12:57 PM [facility] Alanine Aminotransferase (ALT) 60(H) 9 - 59 U/L 09/03/2022 12:57 PM [facility] Comment:Calcium dobesilate c an cause artificially low ALT results at therapeutic concentrations Aspartate Aminotransferase (AST) 66(H) 10 - 35 U/L 09/03/2022 12:57 PM [facility] Globulin 2.4 2.3 - 3.5 g/dL 09/03/2022 12:57 PM [facility] A/G Ratio 2.1 1.0 - 2.2 09/03/2022 12:57 PM [facility] AST/ALT Ratio 1.1 See Comment 09/03/2022 12:57 PM [facility] Comment: Adult with mild elevations of transaminases [...] possibilities eGFR (Creatinine) >60 >=60 mL/min/1.73 m2 09/03/2022 12:57 PM [facility] Comment:Estimated glomerular filtration rate (eGFR) was calculated using the improved CKD-EPI Creatinine (2020) equation. The eGFR provides a rough estimate of kidney function within 30% variability. Values under 60 mL/min/1.73 m2 may indicate CKD if noted for more than 3 months. The eGFR is only valid if creatinine is at steady state. Blood Venipuncture / Unknown 09/03/2022 9:58 AM EST 09/03/2022 9:58 AM EST us Ivana Martinez CLOSING MANAGER LAB BLOOD ORDERABLES Fi nal Result [address] [phone] * (ABNORMAL) CBC auto differential (09/03/2022 9:58 AM EST) WBC 6.2 4.0 - 11.0 x1000/??L 09/03/2022 12:01 PM [facility] RBC 5.11 4.00 - 6.00 M/??L 09/03/2022 12:01 PM [facility] Hemoglobin 16.5 13.2 - 17.1 g/dL 09/03/2022 12:01 PM [facility] Hematocrit 47.30 38.50 - 50.00 % 09/03/2022 12:01 PM [facility] MCV 92.6 80.0 - 100.0 fL 09/03/2022 12:01 PM [facility] MCH 32.3 27.0 - 33.0 pg 09/03/2022 12:01 PM [facility] MCHC 34.9 31.0 - 36.0 g/dL 09/03/2022 12:01 PM [facility] RDW-CV 12.7 11.0 - 15.0 % 09/03/2022 12:01 PM [facility] Platelets 278 150 - 420 x1000/??L 09/03/2022 12:01 PM [facility] MPV 10.2 8.0 - 12.0 fL 09/03/2022 12:01 PM [facility] Neutrophils 40.9 39.0 - 72.0 % 09/03/2022 12:01 PM [facility] Lymphocytes 39.7 17.0 - 50.0 % 09/03/2022 12:01 PM [facility] Monocytes 8.8 4.0 - 12.0 % 09/03/2022 12:01 [facility] Eosinophils 9.3(H) 0.0 - 5.0 % 09/03/2022 12:01 PM [facility] Basophil 1.1 0.0 - 1.4 % 09/03/2022 12:01 PM [facility] Immature Granulocytes 0.2 0.0 - 1.0 % 09/03/2022 12:01 PM [facility] nRBC 0.0 0.0 - 1.0 % 09/03/2022 12:01 PM [facility] ANC(Abs Neutrophil Count) 2.55 2.00 - 7.60 x 1000/??L 09/03/2022 12:01 PM [facility] Absolute Lymphocyte Count 2.48 0.60 - 3.70 x 1000/??L 09/03/2022 12:01 PM [facility] Monocyte Absolute Count 0.55 0.00 - 1.00 x 1000/??L 09/03/2022 12:01 PM [facility] Eosinophil Absolute Count 0.58 0.00 - 1.00 x 1000/??L 09/03/2022 12:01 PM [facility] Basophil Absolute Count 0.07 0.00 - 1.00 x 1000/??L 09/03/2022 12:01 PM [facility] Absolute Immature Granulocyte Count 0.01 0.00 - 0.30 x 1000/??L 09/03/2022 12:01 PM [facility] Absolute nRBC 0.00 0.00 - 1.00 x 1000/??L 09/03/2022 12:01 PM [facility] Blood Venipuncture / Unknown 09/03/2022 9:58 AM EST 09/03/2022 9:58 AM EST Ivana Martinez CLOSING MANAGER LAB BLOOD ORDERABLES Fi nal Result Performing Organization Address City/[facility]/ZIP Co de Phone Number [address] [phone] * Treponema pallidum (syphilis) antibody w/reflex (09/03/2022 9:58 AM EST) Treponema pallidum Ab Index <0.100 <0.9 Index 09/03/2022 1:38 PM [facility] Treponema pallidum Antibody Total, Serum Non-Reacti ve Non-Reacti ve 09/03/2022 1:38 PM [facility] Blood Venipuncture / Unknown 09/03/2022 9:58 AM EST 09/03/2022 9:58 AM EST Ivanaaldo Martinez CLOSING MANAGER LAB BLOOD ORDERABLES Fi nal Result Performing Organization Address [facility]/ZIP Co de Phone Number [address] [phone] * (ABNORMAL) Gamma GT (09/03/2022 9:58 AM EST) GGT 133(H) <48 U/L 09/03/2022 12:57 PM [facility] Blood Venipuncture / Unknown 09/03/2022 9:58 AM EST 09/03/2022 9:58 AM EST [facility] CLOSING MANAGER LAB BLOOD ORDERABLES Fi nal Result Performing Organization Address [facility] Phone [address] [phone] * (ABNORMAL) Vitamin D, 25-hydroxy (09/03/2022 9:58 AM EST) Vitamin W94-[place]ak[place] 12.1(L) 30.0 - 100.0 ng/mL 09/03/2022 1:55 PM [facility] Comment: Vitamin D Status: ??Results in ng/mL <10.0: ??Deficient 10.0 - 29.9: ??Insufficient 30.0 - 100.0: ??Sufficient >100: ??Toxic Reference ranges established by [employer]. Blood Venipuncture / Unknown 09/03/2022 9:58 AM EST 09/03/2022 9:58 AM EST [facility] CLOSING MANAGER LAB BLOOD ORDERABLES Fi nal Result Performing Organization Address [facility]/[address] [phone] * (ABNORMAL) Lipid panel (09/03/2022 9:58 AM EST) Cholesterol 201(H) See Comment mg/dL 09/03/2022 12:57 PM [facility] Comment: Total Cholesterol (mg/dL) ?Adults (>18 years) ? Children (<18 years) Desirable ?<200 ? <170 Borderline-High ?200-239 ?170-199 High ? >=240 ?>=200 ? HDL 76 >=40 mg/dL 09/03/2022 12:57 PM [facility] Triglycerides 157(H) See Comment mg/dL 09/03/2022 12:57 PM [facility] Comment: Triglycerides (mg/dL) ?Adults (>18 years) ? Children (<18 years) Desirable ?<150 ? Not Established Borderline-High ?150-199 ?Not Established High ? 200-499 ?Not Established ?? Chol/HDL Ratio 2.6 0.0 - 5.0 09/03/2022 12:57 PM [facility] LDL Calculated 98 See Comment mg/dL 09/03/2022 12:57 PM [facility] Comment: Effective 01/09/2022, LDL is calculated using the El-NIH equation, which is more accurate than the Friedewald and Gato-Sanchez equations. LDL Cholesterol (mg/dL) ?Adults (>18 years) ? Children (<18 years) Desirable ?<100 ? <110 Above Desirable ?100-129 ?Not Established Borderline-High ?130-159 ?110- 129 High ? 160-189 ?>=130 Very High? >=190 ? Not Established Blood Venipuncture / Unknown 09/03/2022 9:58 AM EST 09/03/2022 9:58 AM EST us Ivana Martinez APRN LAB BLOOD ORDERABLES Fi nal Result [address] [phone] * (ABNORMAL) Hemoglobin A1c (09/03/2022 9:58 AM EST) Hemoglobin A1c 5.7(H) 4.0 - 5.6 % 09/03/2022 12:34 PM [facility] Comment: Hemoglobin A1c values of [...] results. Estimated Average Glucose mg/dL 117 mg/dL 09/03/2022 12:34 PM [facility] Comment: Estimated average glucose (eAG) is a calculated value designed to estimate ??the expected average blood glucose level throughout the day from a single ??measurement of ??glycated hemoglobin A1C (HbA1c) and follows the calculation proposed by the [place] [employer] (Diabetes Care 31: 1-6, 2008). It may have less accuracy in children, women and patients with certain erythrocyte disorders. Blood Venipuncture / Unknown 09/03/2022 9:58 AM EST 09/03/2022 9:58 AM EST Ivana Martinez APRN LAB BLOOD ORDERABLES Fi nal Result [address] [phone] * TSH w/reflex to FT4 (BH GH LMW Q YH) (09/03/2022 9:58 AM EST) Thyroid Stimulating Hormone 3.940 See Comment ??IU/mL 09/03/2022 12:57 PM EST [facility] Comment: Male & Non- Females: 0.270-4.200 ??IU/mL 1st Trimester: 0.110-3.480 ??IU/mL 2nd Trimester: 0.320-3.850 ??IU/mL Blood Venipuncture / Unknown 09/03/2022 9:58 AM EST 09/03/2022 9:58 AM EST us Ivana Martinez APRN LAB BLOOD ORDERABLES Fi nal Result Performing Organization Address City/State/[facility] Co de Phone Number [address] [phone] documented in this encounter Visit Diagnoses Diagnosis Hypertension, unspecified type Hypercalcemia Elevated LFTs Other abnormal blood chemistry Dysuria documented in this encounter Additional Health Concerns Assessment Noted Time PHQ-9 Depression Total Score: 1 09/02/19 23 1:40 PM EST documented as of this encounter Care Teams Security Associate Relationship Specialty Start Date End Date Ivana Martinez APRN PCP - General Family Medicine 05/13/22 01/27/24 documented as of this encounter
--- OUTSIDE RECORDS SUMMARY | 2024-09-09 11:07 | XMS_ITS | Encounter Summary ---
Author Organization [facility] Address [address] [place] [address] Care Team Providers Care Rn Ortho Name Role Phone Ivana Martinez HECTOR Primary Care Provider Reason for Visit * Reason Onset Date Comments Medication Refill 08/28/2022 Encounter Details Date Type Department Care Team (Late st Contact Info) Description 08/28/2022 Refill [facility] Internal Medicine [address] [place] [address] Zoya Clayton MD [address] [place] [phone] Medication Refill Social History Tobacco Use [...] encounter Miscellaneous Notes * Telephone Encounter - Arline Lau PCT - 08/28/2022 12:24 PM EST LUIS FELIPE 09/10/2021 NOV 09/02/22 with Ivana documented in this encounter Plan of Treatment Not on file documented as of this encounter Visit Diagnoses Diagnosis Tinea corporis Dermatophytosis of the body documented in this encounter Additional Health Concerns Assessment Noted Time PHQ-9 Depression Total Score: 0 05/13/20 9:31 AM EDT documented as of this encounter Care Teams Rn Ortho Relationship Specialty Start Date End Date Ivana Martinez APRN PCP - General Family Medicine 05/13/22 01/27/24 documented as of this encounter
--- NOTE | 2024-09-09 11:23 | MHC.OFFVIS ---
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 He states most of the pain is above the knee. He is able to use stairs while using the brace. He reports his knee originally popped out 2 months ago causing prolonged swelling which prompted him to go to urgent care 2 weeks ago; He was given a knee brace he continues to wear. Denies prior injuries or surgeries to the right knee. 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 He states the pain has been present for quite a while and it is worse with bending kneeling or squatting positions. He states the pain is located along the medial aspect of the knee and he gets a sharp shooting pain with twisting mechanisms. He also feels a popping in the knee. He was seen at urgent care and a knee brace was given to him for support which is somewhat helpful. 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 He has full range of motion with crepitus. Tenderness over the medial joint line with positive Manjinder's. Calf supple nontender neurovascularly intact. Results Reviewed Results Reviewed: X-rays of the right knee obtained in the office today and reviewed by me show lateralization of the patella with mild medial compartment OA. Assessment & Plan Assessment & Plan (1) Osteoarthritis of right knee: Code(s): M17.11 - Unilateral primary osteoarthritis, right knee Category: Medical (2) Internal derangement of right knee: Code(s): M23.91 - Unspecified internal derangement of right knee Category: Medical Plan We discussed options today which include exercises to work on glute strengthening and hamstring quad strengthening exercises for patellar stabilization. He was also ordered an MRI of the right knee to further evaluate the pain along the medial meniscus given his limited function with twisting and pivoting exercises. Once the scan is complete we will discuss options going forward. Orders: Orders MR knee RT wo con Today M17.11 - Unilateral primary osteoarthritis, right knee XR knee RT 3V Today M17.11 - Unilateral primary osteoarthritis, right knee XR knee LT 1V Today M25.562 - Pain in left knee Coding Level of Care Code New Pt Level 3 (96250) Complex EM visit Add On G2211 Diagnoses Osteoarthritis of right knee M17.11 Internal derangement of right knee M23.91
[2024-09-09 11:26] VITALS: BMI 25.1
== END 2024-09-09 11:55 | disposition home or self-care (01) ==
LOC: HO.HOS 11:02
PROVIDERS: PCP Internal Medicine; Visit Provider Physician Assistant
DX: M17.11 Unilateral primary osteoarthritis, right knee (principal); M23.91 Unspecified internal derangement of right knee
CPT/HCPCS: 99203; G2211

== ENCOUNTER → 2024-09-09 11:09 | Outpatient (BNV) | payer OTHER, SELFPAY | PROVIDERS: Visit Provider Radiology Diagnostic Radiology | DX: M17.11 Unilateral primary osteoarthritis, right knee (principal) | CPT/HCPCS: 73562 ==

== ENCOUNTER 2024-09-09 11:54 | Outpatient (REF) | payer OTHER, SELFPAY ==
--- NOTE | ~2024-09-09 | XR_ITS ---
EXAMINATION: XR KNEE, RIGHT CLINICAL INFORMATION: M17.11 - Unilateral primary osteoarthritis, right knee COMPARISON: None available. TECHNIQUE: Three views of the right knee. AP view both knees in standing position. FINDINGS: There is joint space narrowing involving most of the medial compartment both knees. Mild articular surface endplate sclerosis of the medial tibial plateau both kidneys. No acute cortical disruption or malalignment. No lytic or blastic lesions. No suprapatellar bursa joint effusion in the right knee. XR/XR knee RT 3V IMPRESSION: Medial compartmental arthrosis, mild, bilaterally. Electronically signed by: Azael Gardner MD 09/09/2024 11:56 AM [facility]
--- OUTSIDE RECORDS SUMMARY | 2024-09-10 12:50 | XMS_ITS | Clinical Summary ---
Author Organization [address] [facility] Address [address] [place] [address] Phone Care Team Providers Care Excavator Backhoe Operator Name Role Phone Unavailable Primary Care Provider Unavailabl e Encounters Date Type Department Care Team Description 08/19/2024 Lab Requisition [facility] - Main Lab [address] [facility] [place] [address] Denzel Longo MD Local infection of the skin and subcutaneous tissue, unspecified from Last 3 Months Social History Tobacco Use Types Packs/Day Years Used Date Smoking Tobacco: Never Assessed Sex and Gender Information Value Date Recorded Sex Assigned at Not on file Gender Identity Not on file Sexual Orientation Not on file Plan of Treatment Health Maintenance Due Date Last Done Comments DTaP,Tdap,and Td Vaccines (1 - Tdap) 2005 Hepatitis B Vaccines (1 of 3 - 19+ 3-dose series) 2005 Cholesterol Screening (Lipid Panel) 08/29/2023 Depression Screening 08/29/2023 HIV Screening 08/29/2023 Hepatitis C Screening 08/29/2023 Social Influencers of Health Screening 08/29/2023 COVID-19 Vaccine (2023-2 5 season) 2024 Influenza Vaccine (#1) 2024 HIB Vaccines Aged Out No longer eligi ble based on patient's age to complete this topic HPV Vaccines Aged Out No longer eligi ble based on patient's age to complete this topic Hepatitis A Vaccines Aged Out No long er eligible based on patient's age to complete this topic IPV Vaccines Aged Out No longer eligi ble based on patient's age to complete this topic MMR Vaccines Aged Out No longer eligi ble based on patient's age to complete this topic Meningococcal ACWY Vaccine Aged Out N o longer eligible based on patient's age to complete this topic Pneumococcal Vaccine: Pediat rics (0 to 5 Years) and At-Risk Patients (6 to 64 Years) Aged Out No longer eligible b ased on patient's age to complete this topic RSV Immunization Patients Un jim 20 months Aged Out No longer eligible b ased on patient's age to complete this topic Varicella Vaccines Aged Out No longer eligible based on patient's age to complete this topic Procedures Procedure Name Priority Date/Time Associated Diagnosis Comments CULTURE FUNGAL, OTHER Routine 08/19/2024 12:00 AM EST Local infection of the skin and subcutaneous tissue, unspecified from Last 3 Months
--- OUTSIDE RECORDS SUMMARY | 2024-09-10 12:50 | XMS_ITS | Encounter Summary ---
Author Organization [facility] Address [address] [place] [address] Care Team Providers Care Rug Measurer Name Role Phone Andrew Martinezhanie HECTOR Primary Care Provider Encounter Details Date Type Department Care Team (Late st Contact Info) Description 09/26/2021 Scanned Document [facility] Internal Medicine [address] [employer], [place] [phone] External, Provider Social History Tobacco Use Types [...] documented as of this encounter Care Teams Rug Measurer Relationship Specialty Start Date End Date Ivana Martinez APRN PCP - General Family Medicine 05/13/22 01/27/24 documented as of this encounter
--- OUTSIDE RECORDS SUMMARY | 2024-09-10 12:50 | XMS_ITS | Clinical Summary ---
Author Organization [facility] Address [address] [place] [address] Care Team Providers Care Intertype Operator Name Role Phone Pcp, No Primary [...] age to complete this topic Care Teams Intertype Operator Relationship Specialty Start Date End Date Pcp, No PCP - General 10/21/22
--- OUTSIDE RECORDS SUMMARY | 2024-09-10 12:50 | XMS_ITS | Encounter Summary ---
Author Organization [facility] Address [address] [place] [address] Care Team Providers Care Screen Operator Name Role Phone Ivana Martinez HECTOR Primary Care Provider Reason for Visit * Reason Comments Medication Refill Encounter Details Date Type Department Care Team (Late st Contact Info) Description 09/29/2020 Refill [facility] Family Medicine [address] [place], [place] [id number] Zoya Clayton MD [address] [address] Medication Refill Social History Tobacco [...] documented as of this encounter Care Teams Screen Operator Relationship Specialty Start Date End Date Ivana Martinez APRN PCP - General Family Medicine 05/13/22 01/27/24 documented as of this encounter
--- OUTSIDE RECORDS SUMMARY | 2024-09-10 12:50 | XMS_ITS | Encounter Summary ---
Author Organization [facility] Address [address] [place] [address] Care Team Providers Care Test Evaluator Name Role Phone Ivana Martinez HECTOR Primary Care Provider Encounter Details Date Type Department Care Team (Late st Contact Info) Description 11/13/2020 Scanned Document [facility] Internal Medicine [address] 1[address] Floor [place], [place] [address] Zoya Clayton MD [facility] [address] [address] Social History Tobacco Use Types [...] documented as of this encounter Care Teams Test Evaluator Relationship Specialty Start Date End Date Ivana Martinez APRN PCP - General Family Medicine 05/13/22 01/27/24 documented as of this encounter
--- OUTSIDE RECORDS SUMMARY | 2024-09-10 12:50 | XMS_ITS | Clinical Summary ---
Author Organization [address] Address [address] [place] [address] Care Team Providers Care Vice President Risk Management Name Role Phone Unavailable Primary Care Provider [...] - 5.6 % 02/26/2023 7:37 PM EDT [facility] Comment: Hemoglobin A1c values of 5.7-6.4 [...] mg/dL 120 mg/dL 02/26/2023 7:37 PM EDT [facility] Comment: Estimated average glucose (eAG) is a calculated value designed to estimate ??the expected average blood glucose level throughout the day from a single ??measurement of ??glycated hemoglobin A1C (HbA1c) and follows the calculation proposed by the [place] [employer] Association (Diabetes Care 31: 1-6, 2008). It may have less accuracy in children, women and patients with certain erythrocyte disorders. Blood Venipuncture / Unknown 02/26/2023 11:12 AM EDT 02/26/2023 11:12 AM EDT Ivana Martinez APRN LAB BLOOD ORDERABLES Fi nal Result [address] [phone] * Hepatitis C Ab with reflex to HCV PCR (05/13/2022 10:46 AM EDT) Hepatitis C Ab Initial Result 0.03 S/CO 05/13/2022 1:44 PM EDT [facility] Hepatitis C Ab Interpretation Non-React lilo Non-React lilo 05/13/2022 1:44 PM EDT [facility] Blood Venipuncture / Unknown 05/13/2022 10:46 AM EDT 05/13/2022 10:46 AM EDT us Ivana Martinez AUTO AIR CONDITIONING APPRENTICE LAB BLOOD ORDERABLES [place] [address], [facility] [phone] * Colonoscopy (10/12/2021 7:19 AM EST) Colonoscopy Endoscopy Patient Name: Jay Guillermo ? Procedure Date: 10/12/2021 7:19 AM ?Date of : 1985 Age: 36 ? Gender: Male Admit Type: Outpatient ?CSN #: [id number] Note Status: Finalized ?Attending MD: Matthew Huynh [...] oxygen ? saturations were monitored continuously. The [id number] ? [id number] was introduced through the anus and advanced [...] Procedure Code(s): ? --- Professional --- ? 77986, Colonoscopy, flexible; with biopsy, single or ? multiple Diagnosis Code(s): ? --- Professional --- ? K62.89, Other specified diseases of anus and rectum ? R10.84, Generalized abdominal pain ? R19.7, Diarrhea, unspecified CPT copyright 2020 [place] [employer]. All rights reserved. The codes documented in this report are preliminary and upon air bag curer review may be revised to meet current [...] Recently Relevant to Health Maintenance Insurance [place] Advance Directives Documents on File Type Date Recorded Patient Dealer Relationship Manager Expl anation Healthcare Dealer Relationship Manager/Po wer of Glass Blower Helper 03/19/2021 4:27 PM 2020
--- OUTSIDE RECORDS SUMMARY | 2024-09-10 12:50 | XMS_ITS | Encounter Summary ---
Author Organization [facility] Address [address] [place] [address] Care Team Providers Care Hand Iii Cutter Name Role Phone Ivana Martinez APRN Primary Care Provider Encounter Details Date Type Department Care Team (Late st Contact Info) Description 02/26/2023 Orders Only [facility] Family Medicine [address] [place] [address] Ivana Martinez APRN [address] [place] [address] [address] [place] [address] Hypertension, unspecified type; Hypothyroidism, unspecified [...] 4.0 - 11.0 x1000/??L 02/26/2023 3:06 PM [facility] RBC 5.06 4.00 - 6.00 M/??L 02/26/2023 3:06 PM [facility] Hemoglobin 16.4 13.2 - 17.1 g/dL 02/26/2023 3:06 PM [facility] Hematocrit 44.90 38.50 - 50.00 % 02/26/2023 3:06 PM [facility] MCV 88.7 80.0 - 100.0 fL 02/26/2023 3:06 PM [facility] MCH 32.4 27.0 - 33.0 pg 02/26/2023 3:06 PM [facility] MCHC 36.5(H) 31.0 - 36.0 g/dL 02/26/2023 3:06 PM [facility] RDW-CV 12.6 11.0 - 15.0 % 02/26/2023 3:06 PM [facility] Platelets 331 150 - 420 x1000/??L 02/26/2023 3:06 PM [facility] MPV 9.8 8.0 - 12.0 fL 02/26/2023 3:06 PM [facility] Neutrophils 42.8 39.0 - 72.0 % 02/26/2023 3:06 PM [facility] Lymphocytes 37.2 17.0 - 50.0 % 02/26/2023 3:06 PM [facility] Monocytes 9.5 4.0 - 12.0 % 02/26/2023 3:06 PM [facility] Eosinophils 8.8(H) 0.0 - 5.0 % 02/26/2023 3:06 PM [facility] Basophil 1.3 0.0 - 1.4 % 02/26/2023 3:06 PM [facility] Immature Granulocytes 0.4 0.0 - 1.0 % 02/26/2023 3:[address] [facility] nRBC 0.0 0.0 - 1.0 % 02/26/2023 3:[address] [facility] ANC(Abs Neutrophil Count) 2.30 2.00 - 7.60 x 1000/??L 02/26/2023 3:06 PM [facility] Absolute Lymphocyte Count 2.00 0.60 - 3.70 x 1000/??L 02/26/2023 3:[address] [facility] Monocyte Absolute Count 0.51 0.00 - 1.00 x 1000/??L [facility] Eosin[facility] Absolute Count 0.47 0.00 - 1.00 x 1000/??L 02/26/2023 3:06 PM [facility] Basophil Absolute Count 0.07 0.00 - 1.00 x 1000/??L 02/26/2023 3:06 PM [facility] Absolute Immature Granulocyte Count 0.02 0.00 - 0.30 x 1000/??L 02/26/2023 3:06 PM [facility] Absolute nRBC 0.00 0.00 - 1.00 x 1000/??L 02/26/2023 3:06 PM [facility] Blood Venipuncture / Unknown 02/26/2023 11:12 AM EDT 02/26/2023 11:12 AM EDT us Ivana Martinez OIL PIPELINE OPERATOR LAB BLOOD ORDERABLES Fi nal Result [address] [phone] * (ABNORMAL) Comprehensive metabolic panel (02/26/2023 11:12 AM EDT) Sodium 140 136 - 144 mmol/L 02/26/2023 3:[address] [facility] Potassium 4.1 3.3 - 5.3 mmol/L 02/26/2023 3:[address] [facility] Chloride 99 98 - 107 mmol/L 02/26/2023 3:[address] [facility] CO2 30 20 - 30 mmol/L 02/26/2023 3:26 PM [facility] Anion Gap 11 7 - 17 02/26/2023 3:26 PM [facility] Glucose 96 70 - 100 mg/dL 02/26/2023 3:26 PM [facility] BUN 8 6 - 20 mg/dL 02/26/2023 3:26 PM [facility] Creatinine 0.76 0.40 - 1.30 mg/dL 02/26/2023 3:26 PM [facility] Calcium 10.0 8.8 - 10.2 mg/dL 02/26/2023 3:26 PM [facility] BUN/Creatinine Ratio 10.5 8.0 - 23.0 02/26/2023 3:26 PM [facility] Total Protein 7.7 6.6 - 8.7 g/dL 023 3:26 PM [facility] Albumin 5.0(H) 3.6 - 4.9 g/dL 02/26/2023 3:26 PM [facility] Total Bilirubin 0.4 <=1.2 mg/dL 02/27/20 3:26 PM [facility] Alkaline Phosphatase 57 9 - 122 U/L 02/26/2023 3:26 PM [facility] Alanine Aminotransferase (ALT) 27 9 - 59 U/L 02/26/2023 3:26 PM [facility] Comment:Calcium dobesilate c an cause artificially low ALT results at therapeutic concentrations Aspartate Aminotransferase (AST) 40(H) 10 - 35 U/L 02/26/2023 3:26 PM [facility] Globulin 2.7 2.3 - 3.5 g/dL 02/26/2023 3:26 PM [facility] A/G Ratio 1.9 1.0 - 2.2 02/26/2023 3:26 PM [facility] AST/ALT Ratio 1.5 Reference Range Not Established 02/26/2023 3:26 PM [facility] eGFR (Creatinine) >60 >=60 mL/min/1.73m2 02/26/2023 3:26 PM [facility] Comment: Values < 60 mL/min/1.73 m2 may indicate CKD if present for more than three months AND creatinine is at steady state. The eGFR provides a rough estimate of kidney function. On 03/19/22 all [facility] Clinical Labs and Epic began using a [id number] formula for estimating GFR called CKD-EPI Creatinine 2020. This equation reports eGFR based on creatinine, patient age, clinical sex, and is standardized to a body surface area of 1.73 m2. For the same creatinine, this new race-free eGFR will be lower than prior reported Black eGFR results and higher than prior Non-Black eGFR results. For further guidance, please refer to the CKD: Adult Human Resources Training Manager Signature pathway. Blood Venipuncture / Unknown 02/26/2023 11:12 AM EDT 02/26/2023 11:12 AM EDT Ivana Martinez OIL PIPELINE OPERATOR LAB BLOOD ORDERABLES Fi nal Result [address] [phone] * (ABNORMAL) Hemoglobin A1c (02/26/2023 11:12 AM EDT) [facility] Signature Hemoglobin A1c 5.8(H) 4.0 - 5.6 % 02/26/2023 7:[address] [facility] Comment: Hemoglobin A1c values of [...] mg/dL 120 mg/dL 02/26/2023 7:[address] [facility] Comment: Estimated average glucose (eAG) is a calculated value designed to estimate ??the expected average blood glucose level throughout the day from a single ??measurement of ??glycated hemoglobin A1C (HbA1c) and follows the calculation proposed by the [place] [employer] (Diabetes Care 31: 1-6, 2008). It may have less accuracy in children, women and patients with certain erythrocyte disorders. Blood Venipuncture / Unknown 02/26/2023 11:12 AM EDT 02/26/2023 11:12 AM EDT us Ivana Martinez APRN LAB BLOOD ORDERABLES Fi nal Result Performing Organization Address [facility]/State/[facility] Co de Phone Number [address] [phone] * (ABNORMAL) Lipid panel (02/26/2023 11:12 AM EDT) Cholesterol 180 See Comment mg/dL 02/26/2023 3:[address] [facility] Comment: Total Cholesterol (mg/dL) ?Adults (>18 years) ? Children (<18 years) Desirable ?<200 ? <170 Borderline-High ?200-239 ?170-199 High ? >=240 ?>=200 ? HDL 62 >=40 mg/dL 02/26/2023 3:26 PM [facility] Triglycerides 161(H) See Comment mg/dL 02/26/2023 3:26 PM [facility] Comment: Triglycerides (mg/dL) ?Adults (>18 years) ? Children (<18 years) Desirable ?<150 ? Not Established Borderline-High ?150-199 ?Not Established High ? 200-499 ?Not Established ?? Chol/HDL Ratio 2.9 0.0 - 5.0 02/26/2023 3:26 PM [facility] LDL Calculated 91 See Comment mg/dL 02/26/2023 3:26 PM [facility] Comment: Effective 01/09/2022, LDL is calculated [...] EDT 02/26/2023 11:12 AM EDT Ivana Martinez OIL PIPELINE OPERATOR LAB BLOOD ORDERABLES [place] [address], [facility] [phone] * (ABNORMAL) Vitamin D, 25-hydroxy (02/26/2023 11:12 AM EDT) Vitamin I62-Jaqnslc 11.1(L) 30.0 - 100.0 ng/mL 02/27/2023 10:[address] [facility] Comment: Vitamin D Status: ??Results in ng/mL <10.0: ??Deficient 10.0 - 29.9: ??Insufficient 30.0 - 100.0: ??Sufficient >100: ??Toxic Reference ranges established by [employer]. Blood Venipuncture / Unknown 02/26/2023 11:12 AM EDT 02/26/2023 11:12 AM EDT Ivana Petastonle OIL PIPELINE OPERATOR LAB BLOOD ORDERABLES Fi nal Result Performing Organization Address [facility] Co de Phone Number [address] [phone] * (ABNORMAL) Gamma GT (02/26/2023 11:12 AM EDT) GGT 108(H) <48 U/L 02/26/2023 3:[address] [facility] Blood Venipuncture / Unknown 02/26/2023 11:12 AM EDT 02/26/2023 11:12 AM EDT [facility] OIL PIPELINE OPERATOR LAB BLOOD ORDERABLES Fi nal Result Performing Organization Address [facility] Number [address] [phone] * TSH w/reflex to FT4 ( GH LMW Q YH) (02/26/2023 11:12 AM EDT) Thyroid Stimulating Hormone 2.550 See Comment ??IU/mL 02/26/2023 3:[address] [facility] Comment: Male & Non- Females: 0.270-4.200 ??IU/mL 1st Trimester: 0.110-3.480 ??IU/mL 2nd Trimester: 0.320-3.850 ??IU/mL Blood Venipuncture / Unknown 02/26/2023 11:12 AM EDT 02/26/2023 11:12 AM EDT Ivana Pettingle OIL PIPELINE OPERATOR LAB BLOOD ORDERABLES Fi nal Result Performing Organization Address [facility] Co de Phone Number [address] [phone] documented in this encounter Visit Diagnoses Diagnosis Hypertension, unspecified type Hypothyroidism, unspecified type LFT elevation Other abnormal blood chemistry Vitamin D deficiency Unspecified vitamin D deficiency documented in this encounter Additional Health Concerns Assessment Noted Time PHQ-9 Depression Total Score: 0 02/27/20 23 10:41 AM EDT documented as of this encounter Care Teams Hand Iii Cutter Relationship Specialty Start Date End Date Ivana Martinez APRN PCP - General Family Medicine 05/13/22 01/27/24 documented as of this encounter
--- OUTSIDE RECORDS SUMMARY | 2024-09-10 12:50 | XMS_ITS | Encounter Summary ---
Author Organization [facility] Address [address] [place] [address] Care Team Providers Care Assistive Technology Trainer Name Role Phone Ivana Martinez HECTOR Primary Care Provider Encounter Details Date Type Department Care Team (Late st Contact Info) Description 11/08/2020 Scanned Document [address] [employer] [facility] [address] [place] [phone] External, Provider Social History Tobacco Use Types [...] documented as of this encounter Care Teams Assistive Technology Trainer Relationship Specialty Start Date End Date Ivana Martinez APRN PCP - General Family Medicine 05/13/22 01/27/24 documented as of this encounter
--- OUTSIDE RECORDS SUMMARY | 2024-09-10 12:50 | XMS_ITS | Encounter Summary ---
Author Organization [facility] Address [address] [place] [address] Care Team Providers Care Dairy Processing Supervisor Name Role Phone Ivana Martinez HECTOR Primary Care Provider Reason for Visit * Reason Comments Medication Refill Encounter Details Date Type Department Care Team (Late st Contact Info) Description 06/01/2021 Refill [facility] Internal Medicine [address] [place] [address] Zoya Clayton MD [facility] [address] [address] Medication Refill Social History Tobacco [...] documented as of this encounter Care Teams Dairy Processing Supervisor Relationship Specialty Start Date End Date Ivana Martinez APRN PCP - General Family Medicine 05/13/22 01/27/24 documented as of this encounter
--- OUTSIDE RECORDS SUMMARY | 2024-09-10 12:50 | XMS_ITS | Encounter Summary ---
Author Organization [facility] Address [address] [place] [address] Care Team Providers Care Play Back Operator Name Role Phone Unavailable Primary Care Provider Unavailabl e Encounter Details Date Type Department Care Team (Late st Contact Info) Description 08/19/2024 Lab Requisition [facility] - Main Lab [address] [facility] [place] [address] Denzel Longo MD [facility] [facility] [place] [address] Local infection of the skin and subcutaneous tissue, unspecified Social History Tobacco Use Types Packs/Day Years Used Date Smoking Tobacco: Never Assessed Sex and Gender Information Value Date Recorded Sex Assigned at Not on file Gender Identity Not on file Sexual Orientation Not on file documented as of this encounter Plan of Treatment Pending Results Name Type Priority Associated Diagnoses Date /Time Culture fungal, other Microbiology Routine Local infection of the skin and subcutaneous tissue, unspecified 08/19/2024 12:00 AM EST documented as of this encounter Procedures Procedure Name Priority Date/Time Associated Diagnosis Comments CULTURE FUNGAL, OTHER Routine 08/19/2024 12:00 AM EST Local infection of the skin and subcutaneous tissue, unspecified documented in this encounter Visit Diagnoses Diagnosis Local infection of the skin and subcutaneous tissue, unspecified documented in this encounter
--- OUTSIDE RECORDS SUMMARY | 2024-09-10 12:51 | XMS_ITS | Encounter Summary ---
Author Organization [facility] Address [address] [place] [address] Care Team Providers Care Handbook Writer Name Role Phone Ivana Martinez APRN Primary Care Provider Encounter Details Date Type Department Care Team (Late st Contact Info) Description 05/05/2019 Scanned Document Scarlet Espinosa M.D. [address] [facility] [address] [place] [address] Jeffy Espinosa MD [address] [place] [phone] Social History Tobacco Use Types Packs/Day [...] documented as of this encounter Care Teams Handbook Writer Relationship Specialty Start Date End Date Ivana Martinez APRN PCP - General Family Medicine 05/13/22 01/27/24 documented as of this encounter
--- OUTSIDE RECORDS SUMMARY | 2024-09-10 12:51 | XMS_ITS | Encounter Summary ---
Author Organization [facility] Address [address] [place] [address] Care Team Providers Care Crystal Lapper Name Role Phone Ivana Martinez APRN Primary Care Provider Encounter Details Date Type Department Care Team (Late st Contact Info) Description 05/06/2019 Scanned Document Scarlet Espinosa M.D. [address] [facility] [address] [place] [address] Jeffy Espinosa MD [address] [place] [phone] Social History Tobacco Use Types Packs/Day [...] documented as of this encounter Care Teams Crystal Lapper Relationship Specialty Start Date End Date Ivana Martinez APRN PCP - General Family Medicine 05/13/22 01/27/24 documented as of this encounter
--- OUTSIDE RECORDS SUMMARY | 2024-09-10 12:51 | XMS_ITS | Encounter Summary ---
Author Organization [facility] Address [address] [place] [address] Care Team Providers Care Senior Business Manager Name Role Phone JohannaAndrew mcelroyhanie HECTOR Primary Care Provider Encounter Details Date Type Department Care Team (Late st Contact Info) Description 08/18/2021 EpicOnHand Encounter [facility] Internal Medicine [address] [place] [address] Leny Hernandez MD Social History Tobacco Use Types Packs/Day Years [...] documented as of this encounter Care Teams Senior Business Manager Relationship Specialty Start Date End Date Ivana Martinez APRN PCP - General Family Medicine 05/13/22 01/27/24 documented as of this encounter
--- OUTSIDE RECORDS SUMMARY | 2024-09-10 12:51 | XMS_ITS | Encounter Summary ---
Author Organization [facility] Address [address] [place] [address] Care Team Providers Care Water Filter Cleaner Name Role Phone Ivana Martinez STORE ADMINISTRATOR Primary Care Provider Reason for Visit * Reason Comments Medication Refill Encounter Details Date Type Department Care Team (Late st Contact Info) Description 12/30/2021 Refill [facility] Gastroenterology [facility] [address] [facility] [address] [place], [place] [id number] Matthew Huynh MD [address] [place] [address] Medication Refill Social History Tobacco [...] documented as of this encounter Care Teams Water Filter Cleaner Relationship Specialty Start Date End Date Ivana Martinez APRN PCP - General Family Medicine 05/13/22 01/27/24 documented as of this encounter
--- OUTSIDE RECORDS SUMMARY | 2024-09-10 12:51 | XMS_ITS | Encounter Summary ---
Author Organization [facility] Address [address] [place] [address] Care Team Providers Care Pedigree Tracer Name Role Phone Ivana Martinez HECTOR Primary Care Provider Reason for Visit * Reason Onset Date Comments Medication Refill 02/26/2022 Encounter Details Date Type Department Care Team (Late st Contact Info) Description 02/26/2022 Refill [facility] Internal Medicine [address] [place] [address] Zoya Clayton MD [address] [place] [phone] Medication Refill Social History Tobacco Use [...] documented as of this encounter Care Teams Pedigree Tracer Relationship Specialty Start Date End Date Ivana Martinez APRN PCP - General Family Medicine 05/13/22 01/27/24 documented as of this encounter
--- OUTSIDE RECORDS SUMMARY | 2024-09-10 12:51 | XMS_ITS | Encounter Summary ---
Author Organization [facility] Address [address] [place] [address] Care Team Providers Care Extender Name Role Phone Ivana Martinez HECTOR Primary Care Provider Encounter Details Date Type Department Care Team (Late st Contact Info) Description 10/12/2021 Scanned Document [facility] G[facility] [address] [place] [address] Matthew Huynh MD [address] [place] [address] Social History Tobacco Use Types [...] documented as of this encounter Care Teams Extender Relationship Specialty Start Date End Date Ivana Martinez APRN PCP - General Family Medicine 05/13/22 01/27/24 documented as of this encounter
--- OUTSIDE RECORDS SUMMARY | 2024-09-10 12:51 | XMS_ITS | Encounter Summary ---
Author Organization [facility] Address [address] [place] [address] Care Team Providers Care It Specialist Name Role Phone Ivana Martinez APRN Primary Care Provider Encounter Details Date Type Department Care Team (Late st Contact Info) Description 09/03/2022 Orders Only [facility] [address] [place] [address] Ivana Martinez APRN [address] [place] [address] [address] [place] [address] Hypertension, unspecified type; Hypercalcemia; Elevated [...] 136 - 144 mmol/L 09/03/2022 12:57 PM [facility] Potassium 4.0 3.3 - 5.3 mmol/L 09/03/2022 12:57 PM [facility] Chloride 97(L) 98 - 107 mmol/L 09/03/2022 12:57 PM [facility] CO2 29 20 - 30 mmol/L 09/03/2022 12:57 PM [facility] Anion Gap 12 7 - 17 09/03/2022 12:57 PM [facility] Glucose 116(H) 70 - 100 mg/dL 09/03/2022 12:57 PM [facility] BUN 8 6 - 20 mg/dL 09/03/2022 12:57 PM [facility] Creatinine 0.86 0.40 - 1.30 mg/dL 09/03/2022 12:57 PM [facility] Calcium 9.5 8.8 - 10.2 mg/dL 09/03/2022 12:57 PM [facility] BUN/Creatinine Ratio 9.3 8.0 - 23.0 08/06 12:57 PM [facility] Total Protein 7.4 6.6 - 8.7 g/dL 09/03/2022 12:57 PM [facility] Albumin 5.0(H) 3.6 - 4.9 g/dL 09/03/2022 12:57 PM [facility] Total Bilirubin 1.0 <=1.2 mg/dL 09/03/19 12:57 PM [facility] Alkaline Phosphatase 70 9 - 122 U/L 12:57 PM [facility] Alanine Aminotransferase (ALT) 60(H) 9 - 59 U/L 09/03/2022 12:57 PM [facility] Comment:Calcium dobesilate c an cause artificially low ALT results at therapeutic concentrations Aspartate Aminotransferase (AST) 66(H) 10 - 35 U/L 09/03/2022 12:57 PM [facility] Globulin 2.4 2.3 - 3.5 g/dL 09/03/2022 12:57 PM [facility] A/G Ratio 2.1 1.0 - 2.2 09/03/2022 12:57 PM [facility] AST/ALT Ratio 1.1 See Comment 09/03/2022 12:57 PM [facility] Comment: Adult with mild elevations of [...] >60 >=60 mL/min/1.73 m2 09/03/2022 12:57 PM [facility] Comment:Estimated glomerular filtration rate (eGFR) was [...] 09/03/2022 9:58 AM EST us Ivana Martinez SAP DATA ARCHITECT LAB BLOOD ORDERABLES Fi nal Result [address] [phone] * (ABNORMAL) CBC auto differential (09/03/2022 9:58 AM EST) WBC 6.2 4.0 - 11.0 x1000/??L 09/03/2022 12:01 PM [facility] RBC 5.11 4.00 - 6.00 M/??L 09/03/2022 12:01 PM [facility] Hemoglobin 16.5 13.2 - 17.1 g/dL 09/03/2022 12:01 PM [facility] Hematocrit 47.30 38.50 - 50.00 % 09/03/2022 12:01 PM [facility] MCV 92.6 80.0 - 100.0 fL 09/03/2022 12:01 PM [facility] MCH 32.3 27.0 - 33.0 pg 09/03/2022 12:01 PM [facility] MCHC 34.9 31.0 - 36.0 g/dL 09/03/2022 12:01 PM [facility] RDW-CV 12.7 11.0 - 15.0 % 09/03/2022 12:01 PM [facility] Platelets 278 150 - 420 x1000/??L 09/03/2022 12:01 PM [facility] MPV 10.2 8.0 - 12.0 fL 09/03/2022 12:01 PM [facility] Neutrophils 40.9 39.0 - 72.0 % 09/03/2022 12:01 PM [facility] Lymphocytes 39.7 17.0 - 50.0 % 09/03/2022 12:01 PM [facility] Monocytes 8.8 4.0 - 12.0 % 09/03/2022 12:01 [facility] Eosinophils 9.3(H) 0.0 - 5.0 % 09/03/2022 12:01 PM [facility] Basophil 1.1 0.0 - 1.4 % 09/03/2022 12:01 PM [facility] Immature Granulocytes 0.2 0.0 - 1.0 % 09/03/2022 12:01 PM [facility] nRBC 0.0 0.0 - 1.0 % 09/03/2022 12:01 PM [facility] ANC(Abs Neutrophil Count) 2.55 2.00 - 7.60 x 1000/??L 09/03/2022 12:01 PM [facility] Absolute Lymphocyte Count 2.48 0.60 - 3.70 x 1000/??L 09/03/2022 12:01 PM [facility] Monocyte Absolute Count 0.55 0.00 - 1.00 x 1000/??L 09/03/2022 12:01 PM [facility] Eosinophil Absolute Count 0.58 0.00 - 1.00 x 1000/??L 09/03/2022 12:01 PM [facility] Basophil Absolute Count 0.07 0.00 - 1.00 x 1000/??L 09/03/2022 12:01 PM [facility] Absolute Immature Granulocyte Count 0.01 0.00 - 0.30 x 1000/??L 09/03/2022 12:01 PM [facility] Absolute nRBC 0.00 0.00 - 1.00 x 1000/??L 09/03/2022 12:01 PM [facility] Blood Venipuncture / Unknown 09/03/2022 9:58 AM EST 09/03/2022 9:58 AM EST Ivana Martinez SAP DATA ARCHITECT LAB BLOOD ORDERABLES Fi nal Result Performing Organization Address City/[facility]/ZIP Co de Phone Number [address] [phone] * Treponema pallidum (syphilis) antibody w/reflex (09/03/2022 9:58 AM EST) Treponema pallidum Ab Index <0.100 <0.9 Index 09/03/2022 1:38 PM [facility] Treponema pallidum Antibody Total, Serum Non-Reacti ve Non-Reacti ve 09/03/2022 1:38 PM [facility] Blood Venipuncture / Unknown 09/03/2022 9:58 AM EST 09/03/2022 9:58 AM EST Ivanaaldo Martinez SAP DATA ARCHITECT LAB BLOOD ORDERABLES Fi nal Result Performing Organization Address [facility]/ZIP Co de Phone Number [address] [phone] * (ABNORMAL) Gamma GT (09/03/2022 9:58 AM EST) GGT 133(H) <48 U/L 09/03/2022 12:57 PM [facility] Blood Venipuncture / Unknown 09/03/2022 9:58 AM EST 09/03/2022 9:58 AM EST Ivana [facility] SAP DATA ARCHITECT LAB BLOOD ORDERABLES Fi nal Result Performing Organization Address [facility] Phone [address] [phone] * (ABNORMAL) Vitamin D, 25-hydroxy (09/03/2022 9:58 AM EST) Vitamin [id number] 12.1(L) 30.0 - 100.0 ng/mL 09/03/2022 1:55 PM [facility] Comment: Vitamin D Status: ??Results in ng/mL <10.0: ??Deficient 10.0 - 29.9: ??Insufficient 30.0 - 100.0: ??Sufficient >100: ??Toxic Reference ranges established by [employer]. Blood Venipuncture / Unknown 09/03/2022 9:58 AM EST 09/03/2022 9:58 AM EST Ivana [facility] SAP DATA ARCHITECT LAB BLOOD ORDERABLES Fi nal Result Performing Organization Address [facility]/[address] [phone] * (ABNORMAL) Lipid panel (09/03/2022 9:58 AM EST) Cholesterol 201(H) See Comment mg/dL 09/03/2022 12:57 PM [facility] Comment: Total Cholesterol (mg/dL) ?Adults (>18 years) ? Children (<18 years) Desirable ?<200 ? <170 Borderline-High ?200-239 ?170-199 High ? >=240 ?>=200 ? HDL 76 >=40 mg/dL 09/03/2022 12:57 PM [facility] Triglycerides 157(H) See Comment mg/dL 09/03/2022 12:57 PM [facility] Comment: Triglycerides (mg/dL) ?Adults (>18 years) ? Children (<18 years) Desirable ?<150 ? Not Established Borderline-High ?150-199 ?Not Established High ? 200-499 ?Not Established ?? Chol/HDL Ratio 2.6 0.0 - 5.0 09/03/2022 12:57 PM [facility] LDL Calculated 98 See Comment mg/dL 09/03/2022 12:57 PM [facility] Comment: Effective 01/09/2022, LDL is calculated [...] APRN LAB BLOOD ORDERABLES Fi nal Result [address] [phone] * (ABNORMAL) Hemoglobin A1c (09/03/2022 9:58 AM EST) Hemoglobin A1c 5.7(H) 4.0 - 5.6 % 09/03/2022 12:34 PM [facility] Comment: Hemoglobin A1c values of 5.7-6.4 [...] Glucose mg/dL 117 mg/dL 09/03/2022 12:34 PM [facility] Comment: Estimated average glucose (eAG) is a calculated value designed to estimate ??the expected average blood glucose level throughout the day from a single ??measurement of ??glycated hemoglobin A1C (HbA1c) and follows the calculation proposed by the [place] [employer] (Diabetes Care 31: 1-6, 2008). It may have less accuracy in children, women and patients with certain erythrocyte disorders. Blood Venipuncture / Unknown 09/03/2022 9:58 AM EST 09/03/2022 9:58 AM EST Ivana Martinez APRN LAB BLOOD ORDERABLES Fi nal Result [address] [phone] * TSH w/reflex to FT4 (BH GH LMW Q YH) (09/03/2022 9:58 AM EST) Thyroid Stimulating Hormone 3.940 See Comment ??IU/mL 09/03/2022 12:57 PM EST [facility] Comment: Male & Non- Females: 0.270-4.200 ??IU/mL 1st Trimester: 0.110-3.480 ??IU/mL 2nd Trimester: 0.320-3.850 ??IU/mL Blood Venipuncture / Unknown 09/03/2022 9:58 AM EST 09/03/2022 9:58 AM EST us Ivana Martinez APRN LAB BLOOD ORDERABLES Fi nal Result Performing Organization Address City/State/[facility] Co de Phone Number [address] [phone] documented in this encounter Visit Diagnoses Diagnosis Hypertension, unspecified type Hypercalcemia Elevated LFTs Other abnormal blood chemistry Dysuria documented in this encounter Additional Health Concerns Assessment Noted Time PHQ-9 Depression Total Score: 1 09/02/19 23 1:40 PM EST documented as of this encounter Care Teams It Specialist Relationship Specialty Start Date End Date Ivana Martinez APRN PCP - General Family Medicine 05/13/22 01/27/24 documented as of this encounter
--- OUTSIDE RECORDS SUMMARY | 2024-09-10 12:51 | XMS_ITS | Encounter Summary ---
Author Organization [facility] Address [address] [place] [phone] Care Team Providers Care Ichthyology Teacher Name Role Phone Andrew Martinezhanie HECTOR Primary Care Provider Reason for Visit * Reason Comments Medication Refill Encounter Details Date Type Department Care Team (Late st Contact Info) Description 06/30/2022 Refill [facility] Internal Medicine [address] [place] [address] Souleymane Wilson DO [address] [place] [place] [phone] Medication Refill Social History Tobacco Use Types [...] documented as of this encounter Care Teams Ichthyology Teacher Relationship Specialty Start Date End Date Ivana Martinez APRN PCP - General Family Medicine 05/13/22 01/27/24 documented as of this encounter
--- OUTSIDE RECORDS SUMMARY | 2024-09-10 12:51 | XMS_ITS | Encounter Summary ---
Author Organization [facility] Address [address] [place] [address] Care Team Providers Care [employer] Guidance Counselor Name Role Phone Ivana Martinez HECTOR Primary Care Provider Reason for Visit * Reason Onset Date Comments Medication Refill 06/25/2022 Encounter Details Date Type Department Care Team (Late st Contact Info) Description 06/25/2022 Refill [facility] Internal Medicine [address] [place] [address] Zoya Clayton MD [address] [place] [phone] Medication Refill Social History Tobacco Use [...] documented as of this encounter Care Teams [employer] Guidance Counselor Relationship Specialty Start Date End Date Ivana Martinez APRN PCP - General Family Medicine 05/13/22 01/27/24 documented as of this encounter
--- OUTSIDE RECORDS SUMMARY | 2024-09-10 12:51 | XMS_ITS | Encounter Summary ---
Author Organization [facility] Address [address] [place] [address] Care Team Providers Care Commercial Lines Assistant Name Role Phone Ivana Martinez HECTOR Primary Care Provider Encounter Details Date Type Department Care Team (Late st Contact Info) Description 09/26/2021 Scanned Document [facility] Internal Medicine [address] [place], [place] [address] Zoya Clayton MD [facility] [address] [phone] Social History Tobacco Use Types [...] documented as of this encounter Care Teams Commercial Lines Assistant Relationship Specialty Start Date End Date Ivana Martinez APRN PCP - General Family Medicine 05/13/22 01/27/24 documented as of this encounter
--- OUTSIDE RECORDS SUMMARY | 2024-09-10 12:51 | XMS_ITS | Encounter Summary ---
Author Organization [facility] Address [address] [place] [address] Care Team Providers Care Hammer Adjuster Name Role Phone Ivana Martinez HECTOR Primary Care Provider Reason for Visit * Reason Comments Medication Refill Encounter Details Date Type Department Care Team (Late st Contact Info) Description 06/20/2021 Refill [facility] Medicine [address] [place] [address] Zyoa Clayton MD [facility] [address] [phone] Medication Refill Social History Tobacco [...] documented as of this encounter Care Teams Hammer Adjuster Relationship Specialty Start Date End Date Ivana Martinez APRN PCP - General Family Medicine 05/13/22 01/27/24 documented as of this encounter
--- OUTSIDE RECORDS SUMMARY | 2024-09-10 12:51 | XMS_ITS | Encounter Summary ---
Author Organization [facility] and [facility] Address [address] [place] [address] Care Team Providers Care Student Career Development Specialist Name Role Phone Ivana Martinez APRN Primary Care Provider Encounter Details Date Type Department Care Team (Late st Contact Info) Description 05/13/2022 Transcribed Orders [place] [facility] [address] [place], [place] [address] Ivana Martinez APRN [address] [facility] [address] [place] [address] Hypocalcemia (Primary Dx); Hypertension, unspecified [...] See Comment ng/dL 05/13/2022 2:16 PM EDT [facility] Comment: For patients taking levothyroxine, the daily [...] ORDERABLES Fi nal Result Performing Organization Address [facility]/State/[facility] Co de Phone Number [address] [phone] * PTH, intact without calcium (05/13/2022 10:46 AM EDT) Parathyroid Hormone, Intact 35.0 15.0 - 65.0 pg/mL 05/13/2022 12:49 PM EDT [facility] Blood Venipuncture / Unknown 05/13/2022 10:46 AM EDT 05/13/2022 10:46 AM EDT Ivanabhavin Martinez COLLEGE ADVISOR LAB BLOOD ORDERABLES Fi nal Result [facility] [address] [place] [address], [facility] [phone] * (ABNORMAL) Comprehensive metabolic panel (05/13/2022 10:46 AM EDT) Sodium 138 136 - 144 mmol/L 05/13/2022 1:07 PM [facility] Potassium 3.8 3.3 - 5.3 mmol/L 05/13/2022 1:07 PM [facility] Chloride 98 98 - 107 mmol/L 05/13/2022 1:07 PM [facility] CO2 28 20 - 30 mmol/L 05/13/2022 1:07 PM [facility] Anion Gap 12 7 - 17 05/13/2022 1:07 PM [facility] Glucose 105(H) 70 - 100 mg/dL 05/13/2022 1:07 PM [facility] BUN 6 6 - 20 mg/dL 05/13/2022 1:07 PM [facility] Creatinine 0.78 0.40 - 1.30 mg/dL 05/13/2022 1:07 PM [facility] Calcium 9.6 8.8 - 10.2 mg/dL 05/13/2022 1:07 PM [facility] BUN/Creatinine Ratio 7.7(L) 8.0 - 23.0 05/04 1:07 PM [facility] Total Protein 7.5 6.6 - 8.7 g/dL 05/13/2022 1:07 PM [facility] Albumin 5.2(H) 3.6 - 4.9 g/dL 05/13/2022 1:07 PM [facility] Total Bilirubin 0.5 <=1.2 mg/dL 05/13/20 1:07 PM [facility] Alkaline Phosphatase 81 9 - 122 U/L 05/2022 1:07 PM [facility] Alanine Aminotransferase (ALT) 45 9 - 59 U/L 05/13/2022 1:07 PM [facility] Comment:Calcium dobesilate c an cause artificially low ALT results at therapeutic concentrations Aspartate Aminotransferase (AST) 48(H) 10 - 35 U/L 05/13/2022 1:07 PM EDT [facility] Globulin 2.3 2.3 - 3.5 g/dL 05/13/2022 1:07 PM [facility] A/G Ratio 2.3(H) 1.0 - 2.2 05/13/2022 1:07 PM [facility] AST/ALT Ratio 1.1 See Comment 05/13/2022 1:07 PM [facility] Comment: Adult with mild elevations of transaminases [...] >60 >=60 mL/min/1.73 m2 05/13/2022 1:07 PM [facility] Comment:Estimated glomerular filtration rate (eGFR) was calculated [...] 05/13/2022 10:46 AM EDT us Ivana Martinez COLLEGE ADVISOR LAB BLOOD ORDERABLES Fi nal Result [address] [phone] * (ABNORMAL) CBC auto differential (05/13/2022 10:46 AM EDT) WBC 5.5 4.0 - 11.0 x1000/??L 05/13/2022 12:09 PM EDT [facility] RBC 5.19 4.00 - 6.00 M/??L 05/13/2022 12:09 PM [facility] Hemoglobin 16.6 13.2 - 17.1 g/dL 05/13/2022 12:09 PM [facility] Hematocrit 45.70 38.50 - 50.00 % 05/13/2022 12:09 PM [facility] MCV 88.1 80.0 - 100.0 fL 05/13/2022 12:09 PM [facility] MCH 32.0 27.0 - 33.0 pg 05/13/2022 12:09 PM [facility] MCHC 36.3(H) 31.0 - 36.0 g/dL 05/13/2022 12:09 PM [facility] RDW-CV 12.7 11.0 - 15.0 % 05/13/2022 12:09 PM [facility] Platelets 323 150 - 420 x1000/??L 05/13/2022 12:09 PM [facility] MPV 9.5 8.0 - 12.0 fL 05/13/2022 12:09 PM [facility] Neutrophils 36.5(L) 39.0 - 72.0 % 05/13/2022 12:09 PM [facility] Lymphocytes 42.0 17.0 - 50.0 % 05/13/2022 12:09 PM [facility] Monocytes 9.2 4.0 - 12.0 % 05/13/2022 12:09 PM [facility] Eosinophils 11.2(H) 0.0 - 5.0 % 05/13/2022 12:09 PM [facility] Basophil 1.1 0.0 - 1.4 % 05/13/2022 12:09 PM [facility] Immature Granulocytes 0.0 0.0 - 1.0 % 05/13/2022 12:09 PM [facility] nRBC 0.0 0.0 - 1.0 % 05/13/2022 12:09 PM [facility] ANC(Abs Neutrophil Count) 1.99(L) 2.00 - 7.60 x 1000/??L 05/13/2022 12:09 PM [facility] Absolute Lymphocyte Count 2.29 0.60 - 3.70 x 1000/??L 05/13/2022 12:09 PM [facility] Monocyte Absolute Count 0.50 0.00 - 1.00 x 1000/??L 05/13/2022 12:09 PM EDT [facility] Eosinophil Absolute Count 0.61 0.00 - 1.00 x 1000/??L 05/13/2022 12:09 PM EDT [facility] Basophil Absolute Count 0.06 0.00 - 1.00 x 1000/??L 05/13/2022 12:09 PM T [facility] Absolute Immature Granulocyte Count 0.00 0.00 - 0.30 x 1000/??L 05/13/2022 12:09 PM T [facility] Absolute nRBC 0.00 0.00 - 1.00 x 1000/??L 05/13/2022 12:09 PM T [facility] Blood Venipuncture / Unknown 05/13/2022 10:46 AM EDT 05/13/2022 10:46 AM EDT Ivanabhavin Martinez COLLEGE ADVISOR LAB BLOOD ORDERABLES Fi nal Result [address] [phone] * (ABNORMAL) Thyroid antibody panel ([facility]) (05/13/2022 10:46 AM EDT) Pathologist [facility] [place] Thyroid Peroxidase Ab 163(H) 0 - 99 IU/mL 05/15/2022 1:01 PM EDT [facility] Thyroglobulin Ab <10.0 0 - 125 IU/mL 05/15/2022 1:01 PM EDT [facility] Blood Venipuncture / Unknown 05/13/2022 10:46 AM EDT 05/13/2022 10:46 AM EDT Ivanabhavin Martinez COLLEGE ADVISOR LAB BLOOD ORDERABLES Fi nal Result [address] [phone] * (ABNORMAL) THYROID PEROXIDASE ANTIBODY (05/13/2022 10:46 AM EDT) Thyroid Peroxidase Ab 163(H) 0 - 99 IU/mL 05/15/2022 1:01 PM EDT [facility] Blood Venipuncture / Unknown 05/13/2022 10:46 AM EDT 05/13/2022 10:46 AM EDT Ivana Martinez COLLEGE ADVISOR LAB BLOOD ORDERABLES Fi nal Result Performing Organization Address City/State/[facility] Co de Phone Number [address] [phone] * TESTOSTERONE, TOTAL (BH GH L LMW YH) (05/13/2022 10:46 AM EDT) Pathologist [facility] [place] Testosterone, Total 302 229 - 902 ng/dL 05/13/2022 1:18 PM EDT [facility] Comment: The following testosterone reference ranges have [...] [place]. J Clin Endocrinol Metab. 2017 Nov 1;102(4):4551-3177. Blood Venipuncture / Unknown 05/13/2022 10:46 AM EDT 05/13/2022 10:46 AM EDT Ivanabhavin Martinez COLLEGE ADVISOR LAB BLOOD ORDERABLES Fi nal Result [address] [phone] * (ABNORMAL) Gamma GT (05/13/2022 10:46 AM EDT) GGT 92(H) <48 U/L 05/13/2022 12:53 PM EDT [facility] Blood Venipuncture / Unknown 05/13/2022 10:46 AM EDT 05/13/2022 10:46 AM EDT Ivana Medikidzlilibeth COLLEGE ADVISOR LAB BLOOD ORDERABLES Fi nal Result Performing Organization Address [facility] de Phone Number [address] [phone] * (ABNORMAL) Vitamin D, 25-hydroxy (05/13/2022 10:46 AM EDT) Vitamin Q99-Kartudi 16.9(L) 30.0 - 100.0 ng/mL 05/13/2022 1:47 PM EDT [facility] Comment: Vitamin D Status: ??Results in ng/mL <10.0: ??Deficient 10.0 - 29.9: ??Insufficient 30.0 - 100.0: ??Sufficient >100: ??Toxic Reference ranges established by [employer]. Blood Venipuncture / Unknown 05/13/2022 10:46 AM EDT 05/13/2022 10:46 AM EDT Ivana Martinez COLLEGE ADVISOR LAB BLOOD ORDERABLES Fi nal Result Performing Organization Address [facility]/ZIP Ms de Phone Number [address] [phone] * Hepatitis C Ab with reflex to HCV PCR (05/13/2022 10:46 AM EDT) Hepatitis C Ab Initial Result 0.03 S/CO 05/13/2022 1:44 PM EDT [facility] Hepatitis C Ab Interpretation Non-React lilo Non-React lilo 05/13/2022 1:44 PM EDT [facility] Blood Venipuncture / Unknown 05/13/2022 10:46 AM EDT 05/13/2022 10:46 AM EDT [facility] COLLEGE ADVISOR LAB BLOOD ORDERABLES Fi nal Result Performing Organization Address [facility] de Phone [address] [phone] * (ABNORMAL) Lipid panel (05/13/2022 10:46 AM EDT) [facility] Cholesterol 185 See Comment mg/dL 05/13/2022 1:07 PM EDT [facility] Comment: Total Cholesterol (mg/dL) ?Adults (>18 years) ? Children (<18 years) Desirable ?<200 ? <170 Borderline-High ?200-239 ?170-199 High ? >=240 ?>=200 ? HDL 63 >=40 mg/dL 05/13/2022 1:07 PM [facility] Triglycerides 268(H) See Comment mg/dL 05/13/2022 1:07 PM [facility] Comment: Triglycerides (mg/dL) ?Adults (>18 years) ? Children (<18 years) Desirable ?<150 ? Not Established Borderline-High ?150-199 ?Not Established High ? 200-499 ?Not Established ?? Chol/HDL Ratio 2.9 0.0 - 5.0 05/13/2022 1:07 PM [facility] LDL Calculated 79 See Comment mg/dL 05/13/2022 1:07 PM [facility] Comment: Effective 01/09/2022, LDL is calculated using [...] 05/13/2022 10:46 AM EDT us Ivana Martinez COLLEGE ADVISOR LAB BLOOD ORDERABLES Fi nal Result [address] [phone] * (ABNORMAL) Vitamin B12 (05/13/2022 10:46 AM EDT) Vitamin B12 168(L) 232 - 1,245 pg/mL 05/13/2022 1:40 PM EDT [facility] Blood Venipuncture / Unknown 05/13/2022 10:46 AM EDT 05/13/2022 10:46 AM EDT Ivana Martinez COLLEGE ADVISOR LAB BLOOD ORDERABLES Fi nal Result Performing Organization Address [facility]/State/ZIP Co [place] [address], [facility] [phone] * (ABNORMAL) Hemoglobin A1c (05/13/2022 10:46 AM EDT) Hemoglobin A1c 5.7(H) 4.0 - 5.6 % 05/13/2022 1:42 PM EDT [facility] Comment: Hemoglobin A1c values of 5.7-6.4 % [...] mg/dL 117 mg/dL 05/13/2022 1:42 PM EDT [facility] Comment: Estimated average glucose (eAG) is a calculated value designed to estimate ??the expected average blood glucose level throughout the day from a single ??measurement of ??glycated hemoglobin A1C (HbA1c) and follows the calculation proposed by the [place] [employer] (Diabetes Care 31: 1-6, 2008). It may have less accuracy in children, women and patients with certain erythrocyte disorders. Blood Venipuncture / Unknown 05/13/2022 10:46 AM EDT 05/13/2022 10:46 AM EDT Ivanaaldo Martinez COLLEGE ADVISOR LAB BLOOD ORDERABLES Fi nal Result [address] [phone] * (ABNORMAL) TSH w/reflex to FT4 (BH GH LMW Q YH) (05/13/2022 10:46 AM EDT) Thyroid Stimulating Hormone 4.470(H) See Comment ??IU/mL 05/13/2022 1:07 PM EDT [facility] Comment: Male & Non- Females: 0.270-4.200 ??IU/mL 1st Trimester: 0.110-3.480 ??IU/mL 2nd Trimester: 0.320-3.850 ??IU/mL Blood Venipuncture / Unknown 05/13/2022 10:46 AM EDT 05/13/2022 10:46 AM EDT Ivana Martinez APRN LAB BLOOD ORDERABLES Fi nal Result Performing Organization Address City/[facility] Co de Phone Number [address] [phone] documented in this encounter Visit Diagnoses Diagnosis [...] documented as of this encounter Care Teams Student Career Development Specialist Relationship Specialty Start Date End Date Ivana Martinez APRN PCP - General Family Medicine 05/13/22 01/27/24 documented as of this encounter
--- OUTSIDE RECORDS SUMMARY | 2024-09-10 12:51 | XMS_ITS | Encounter Summary ---
Author Organization [facility] Address [address] [place] [address] Care Team Providers Care Anode Machine Operator Name Role Phone Ivana Martinez HECTOR Primary Care Provider Reason for Visit * Reason Onset Date Comments Medication Refill 05/30/2022 Encounter Details Date Type Department Care Team (Late st Contact Info) Description 05/30/2022 Refill [facility] Internal Medicine [address] [place] [address] Zoya Clayton MD [address] [place] [phone] Medication Refill Social History Tobacco Use [...] documented as of this encounter Care Teams Anode Machine Operator Relationship Specialty Start Date End Date Ivana Martinez APRN PCP - General Family Medicine 05/13/22 01/27/24 documented as of this encounter
--- OUTSIDE RECORDS SUMMARY | 2024-09-10 12:51 | XMS_ITS | Encounter Summary ---
Author Organization [facility] Address [address] [place] [address] Care Team Providers Care Thresher Broomcorn Name Role Phone Ivana Martinez APRN Primary Care Provider Encounter Details Date Type Department Care Team (Late st Contact Info) Description 09/03/2022 Transcribed Orders [place] [facility] [address] [place], [place] [id number] Ivana Martinez APRN [address] [facility] [address] [place] [address] Dysuria (Primary Dx) Social History [...] Priority Date/Time Associated Diagnosis Comments URINE MICROSCOPIC ([facility] LMW YH) Routine 09/03/2022 10:54 AM EST Dysuria URINALYSIS-MACROSCOP IC W/REFLEX MICROSCOPIC Routine 09/03/2022 10:54 AM EST Dysuria C. TRACHOMATIS / N. GONORRHOEAE, NAAT ( GH L LMW YH) Routine 09/03/2022 10:54 AM EST Dysuria NEISSERIA GONORRHEA, NAAT (LAB ORDER ONLY) ([facility] L LMW YH) Routine 09/03/2022 10:54 AM EST Dysuria CHLAMYDIA TRACHOMATIS, NAAT (LAB ORDER ONLY) ([facility] L LMW YH) Routine 09/03/2022 10:54 AM EST Dysuria URINE CULTURE Routine 09/03/2022 10:54 AM EST Dysuria documented in this encounter Results * (ABNORMAL) Urine microscopic ([facility] LMW YH) (09/03/2022 10:54 AM EST) RBC/HPF, UA 6(H) 0 - 2 /HPF 09/03/2022 12:05 PM [facility] WBC/HPF, UA 1 0 - 5 /HPF 09/03/2022 12:05 PM [facility] Bacteria, UA Rare None-Rare /HPF 09/03/2022 12:05 PM [facility] Hyaline Casts, UA 1 0 - 3 /LPF 09/03/2022 12:05 PM [facility] Urine Collection / Unknown 09/03/2022 10:54 AM EST 09/03/2022 10:54 AM EST us Ivana Martinez JOB PLACEMENT OFFICER URINE ORDERABLES Final Result [address] [phone] * Chlamydia trachomatis, NAAT ( GH LMW YH) (09/03/2022 10:54 AM EST) Chlamydia DNA Probe Negative Negative 09/04/2022 11:43 AM [facility] Comment:The [employer] Combo2 As say is not intended for the evaluation of suspected sexual abuse or for other medico-legal indications. Specimen Source Urine (Dirty Catch) for DNA Probe 09/04/2022 11:43 AM [facility] Culture URINE SPECIMEN / Unknown Collection / Unknown 09/03/2022 10:54 AM EST 09/03/2022 10:54 AM EST Ivana Martinez APRN MICROBIOLOGY - GENERAL ORDERABLES Final Result Performing Organization Address [facility]/ZIP Co de Phone Number [address] [phone] * Neisseria gonorrhoeae, NAAT ( GH L LMW YH) (09/03/2022 10:54 AM EST) Neisseria gonorrhoeae, DNA Probe Negative Negative 09/04/2022 11:43 AM [facility] Comment:The [employer] Combo2 As say is not intended for the evaluation of suspected sexual abuse or for other medico-legal indications. Specimen Source Urine (Dirty Catch) for DNA Probe 09/04/2022 11:43 AM [facility] Culture URINE SPECIMEN / Unknown Collection / Unknown 09/03/2022 10:54 AM EST 09/03/2022 10:54 AM EST Ivana Martinez APRN MICROBIOLOGY - GENERAL ORDERABLES Final Result Performing Organization Address [facility]/ZIP Co de Phone Number [address] [phone] * (ABNORMAL) Urinalysis-macroscopic w/reflex microscopic (09/03/2022 10:54 AM EST) Clarity, UA Clear Clear 09/03/2022 11:59 AM [facility] Color, UA Yellow Yellow, Colorless 09/03/2022 11:59 AM [facility] Specific [place], UA 1.015 1.005 - 1.030 09/03/2022 11:59 AM [facility] pH, UA 6.5 5.5 - 7.5 09/03/2022 11:59 AM [facility] Protein, UA Negative Negative, Trace 09/03/2022 11:59 AM [facility] Glucose, UA Negative Negative 09/03/2022 11:59 AM [facility] Ketones, UA Negative Negative 09/03/2022 11:59 AM [facility] Blood, UA 2+(A) Negative 09/03/2022 11:59 AM [facility] Bilirubin, UA Negative Negative 09/03/2022 11:59 AM [facility] Leukocytes, UA Negative Negative 09/03/2022 11:59 AM [facility] Nitrite, UA Negative Negative 09/03/2022 11:59 AM [facility] Urobilinogen, UA <2.0 <=2.0 mg/dL 09/03/2022 11:59 AM [facility] Urine Collection / Unknown 09/03/2022 10:54 AM EST 09/03/2022 10:54 AM EST Ivana Martinez JOB PLACEMENT OFFICER URINE ORDERABLES Final Result Performing Organization Address City/[facility]/ZIP Co de Phone Number [address] [phone] * Urine culture (09/03/2022 10:54 AM EST) Urine Culture, Routine No Growth 09/04/2022 1:27 PM [facility] Culture URINE SPECIMEN OBTAINED BY CLEAN CATCH PROCEDURE / Unknown Collection / Unknown 09/03/2022 10:54 AM EST 09/03/2022 10:54 AM EST Ivana Martinez APRN MICROBIOLOGY - GENERAL ORDERABLES Final Result Performing Organization Address [facility]/ZIP Co de Phone Number [address] [phone] documented in this encounter Visit Diagnoses Diagnosis Dysuria- Primary documented in this encounter Additional Health Concerns Assessment Noted Time PHQ-9 Depression Total Score: 1 09/02/19 23 1:40 PM EST documented as of this encounter Care Teams Thresher Broomcorn Relationship Specialty Start Date End Date Ivana Martinez APRN PCP - General Family Medicine 05/13/22 01/27/24 documented as of this encounter
--- OUTSIDE RECORDS SUMMARY | 2024-09-10 12:51 | XMS_ITS | Encounter Summary ---
Author Organization [facility] Address [address] [place] [address] Care Team Providers Care Statue Maker Name Role Phone Ivana Martinez HECTOR Primary Care Provider Reason for Visit * Reason Comments Medication Refill Encounter Details Date Type Department Care Team (Late st Contact Info) Description 06/22/2022 Refill [facility] Internal Medicine [address] [place] [address] Zoya Clayton MD [facility] [address] [phone] Medication Refill Social History Tobacco [...] documented as of this encounter Care Teams Statue Maker Relationship Specialty Start Date End Date Ivana Martinez APRN PCP - General Family Medicine 05/13/22 01/27/24 documented as of this encounter
--- OUTSIDE RECORDS SUMMARY | 2024-09-10 12:51 | XMS_ITS | Encounter Summary ---
Author Organization [facility] Address [address] [place] [address] Care Team Providers Care Tower Air Traffic Control Specialist Name Role Phone Ivana Martinez HECTOR Primary Care Provider Reason for Visit * Reason Onset Date Comments Medication Refill 05/02/2022 Encounter Details Date Type Department Care Team (Late st Contact Info) Description 05/02/2022 Refill [facility] Internal Medicine [address] [place] [address] Zoya Clayton MD [address] [place] [phone] Medication Refill Social History Tobacco Use [...] documented as of this encounter Care Teams Tower Air Traffic Control Specialist Relationship Specialty Start Date End Date Ivana Martinez APRN PCP - General Family Medicine 05/13/22 01/27/24 documented as of this encounter
--- OUTSIDE RECORDS SUMMARY | 2024-09-10 12:51 | XMS_ITS | Encounter Summary ---
Author Organization [facility] Address [address] [place] [address] Care Team Providers Care Silvering Applicator Name Role Phone Ivana Martinez EHCTOR Primary Care Provider Encounter Details Date Type Department Care Team (Late st Contact Info) Description 11/17/2021 Scanned Document [facility] [address] [place], [place] [address] Zoya Clayton MD [address] [phone] Social History Tobacco Use Types [...] documented as of this encounter Care Teams Silvering Applicator Relationship Specialty Start Date End Date Ivana Martinez APRN PCP - General Family Medicine 05/13/22 01/27/24 documented as of this encounter
--- OUTSIDE RECORDS SUMMARY | 2024-09-10 12:51 | XMS_ITS | Encounter Summary ---
Author Organization [facility] Address [address] [place] [address] Care Team Providers Care Regulatory Administrator Name Role Phone Ivana Martinez HECTOR Primary Care Provider Reason for Visit * Reason Onset Date Comments Medication Refill 07/12/2021 Encounter Details Date Type Department Care Team (Late st Contact Info) Description 07/12/2021 Refill [facility] Internal Medicine [address] [place] [address] Zoya Clayton MD [address] [place] [phone] Medication Refill Social History Tobacco Use [...] documented as of this encounter Care Teams Regulatory Administrator Relationship Specialty Start Date End Date Ivana Martinez APRN PCP - General Family Medicine 05/13/22 01/27/24 documented as of this encounter
--- OUTSIDE RECORDS SUMMARY | 2024-09-10 12:51 | XMS_ITS | Encounter Summary ---
Author Organization [facility] Address [address] [place] [address] Care Team Providers Care Chain Person Name Role Phone Pcp, No Primary Care Provider Unavailabl e Encounter Details Date Type Department Care Team (Late st Contact Info) Description 10/12/2022 Scanned Document [facility] [address] [phone] Matthew Rodney MD [address] [place] [phone] Social History [...] on filedocumented in this encounter Care Teams Chain Person Relationship Specialty Start Date End Date Pcp, No PCP - General 10/21/22 documented as of this encounter
--- OUTSIDE RECORDS SUMMARY | 2024-09-10 12:51 | XMS_ITS | Encounter Summary ---
Author Organization [facility] Address [address] [place] [address] Care Team Providers Care Youth Accommodation Support Worker Name Role Phone vIana Martinez HECTOR Primary Care Provider Reason for Visit * Reason Onset Date Comments Medication Refill 08/28/2022 Encounter Details Date Type Department Care Team (Late st Contact Info) Description 08/28/2022 Refill [facility] Internal Medicine [address] [place] [address] Zoya Clayton MD [address] [place] [phone] Medication Refill Social History Tobacco Use [...] documented as of this encounter Care Teams Youth Accommodation Support Worker Relationship Specialty Start Date End Date Ivana Martinez APRN PCP - General Family Medicine 05/13/22 01/27/24 documented as of this encounter
--- OUTSIDE RECORDS SUMMARY | 2024-09-10 12:51 | XMS_ITS | Encounter Summary ---
Author Organization [facility] Address [address] [place] [address] Care Team Providers Care Zipper Lining Folder Name Role Phone Ivana Martinez HECTOR Primary Care Provider Reason for Visit * Reason Comments Medication Refill Encounter Details Date Type Department Care Team (Late st Contact Info) Description 04/01/2022 Refill [facility] Internal Medicine [address] [place] [address] Zoya Clayton MD [facility] [address] [phone] Medication Refill Social History Tobacco [...] documented as of this encounter Care Teams Zipper Lining Folder Relationship Specialty Start Date End Date Ivana Martinez APRN PCP - General Family Medicine 05/13/22 01/27/24 documented as of this encounter
--- OUTSIDE RECORDS SUMMARY | 2024-09-10 12:51 | XMS_ITS | Encounter Summary ---
Author Organization [facility] Address [address] [place] [phone] Care Team Providers Care Patient Consumer Marketer Name Role Phone JohannaAndrew mcelroyhanie HECTOR Primary Care Provider Encounter Details Date Type Department Care Team (Late st Contact Info) Description 11/19/2021 Scanned Document [facility] Internal Medicine [address], 1[address] Floor [place], [place] [phone] Provider, historical . Social History Tobacco Use [...] INTERNA L AP EXTERNAL AXILLARY ([facility]) Routine 11/17/2021 documented in this [...] documented as of this encounter Care Teams Patient Consumer Marketer Relationship Specialty Start Date End Date Ivana Martinez APRN PCP - General Family Medicine 05/13/22 01/27/24 documented as of this encounter
--- OUTSIDE RECORDS SUMMARY | 2024-09-10 12:51 | XMS_ITS | Encounter Summary ---
Author Organization [facility] Address [address] [place] [address] Care Team Providers Care Coal Tram Driver Name Role Phone Ivana Martinez HECTOR Primary Care Provider Reason for Visit * Reason Onset Date Comments Medication Refill 10/29/2021 Encounter Details Date Type Department Care Team (Late st Contact Info) Description 10/29/2021 Refill [facility] Internal Medicine [address], [address] [place] [address] Zoya Clayton MD [address] [place] [phone] Medication Refill Social History Tobacco Use [...] documented as of this encounter Care Teams Coal Tram Driver Relationship Specialty Start Date End Date Ivana Martinez APRN PCP - General Family Medicine 05/13/22 01/27/24 documented as of this encounter
--- OUTSIDE RECORDS SUMMARY | 2024-09-10 12:51 | XMS_ITS | Patient Health Record ---
Author Organization [facility], Address [address] [place] [address] Reason For Referral No Information Plan Of Treatment No Information Insurance Providers Payer Name Payer Address Payer Phone Subscriber Number Group Number Insured Name Patient Relationship to Insured Coverage Start Date Coverage End Date [employer] [place] [address] [place] [phone] [id number] Jay major Self - patient is the insured
--- OUTSIDE RECORDS SUMMARY | 2024-09-10 12:51 | XMS_ITS | Encounter Summary ---
Author Organization [facility] Address [address] [place] [phone] Care Team Providers Care Instrument Repairer Name Role Phone Ivana Martinez HECTOR Primary Care Provider Encounter Details Date Type Department Care Team (Late st Contact Info) Description 08/27/2021 Scanned Document [address] 1,2,3 [facility] [address] [place] [phone] Provider, historical . Social History Tobacco [...] documented as of this encounter Care Teams Instrument Repairer Relationship Specialty Start Date End Date Ivana Martinez APRN PCP - General Family Medicine 05/13/22 01/27/24 documented as of this encounter
--- OUTSIDE RECORDS SUMMARY | 2024-09-10 12:51 | XMS_ITS | Encounter Summary ---
Author Organization [facility] Address [address] [place] [address] Care Team Providers Care Managed Care Director Name Role Phone Pcp, No Primary Care Provider Unavailabl e Reason for Referral * Diagnostic Imaging (Routine) - Closed Specialty Diagnoses / Procedures Referred By Christian chatman Referred To Contact Diagnoses Microhematuria Procedures CT Urogram w w/o contrast w/3D Matthew Rodney MD [address] [place] [phone] Referral ID Status Reason Start Date Expiration Date Visits Re quested Visits Authorized [id number] Closed 10/08/2022 12/11/2022 1 1 Reason for Visit * Diagnostic Imaging (Routine) - Closed Specialty Diagnoses / Procedures Referred By Christian chatman Referred To Contact Diagnoses Microhematuria Procedures CT Urogram w w/o contrast w/3D Matthew Rodney MD [address] [place] [id number] Referral ID Status Reason Start Date Expiration Date Visits Re quested Visits Authorized [id number] Closed 10/08/2022 12/11/2022 1 1 Encounter Details Date Type Department Care Team ([facility] st Contact Info) Description 10/21/2022 2:14 PM EDT Hospital Encounter Advanced [facility] [address] [place] [phone] Microhematuria Social History Tobacco Use Types Packs/Day [...] mL documented in this encounter Care Teams Managed Care Director Relationship Specialty Start Date End Date Pcp, No PCP - General 10/21/22 documented as of this encounter
--- OUTSIDE RECORDS SUMMARY | 2024-09-10 12:51 | XMS_ITS | Encounter Summary ---
Author Organization [facility] Address [address] [place] [address] Care Team Providers Care Parts Classifier Name Role Phone Ivana Martinez HECTOR Primary Care Provider Encounter Details Date Type Department Care Team (Late st Contact Info) Description 08/22/2021 Scanned Document [facility] Internal Medicine [address], [address] [place], [place] [id number] Zoya Clayton MD [address] [phone] Social History Tobacco Use Types [...] documented as of this encounter Care Teams Parts Classifier Relationship Specialty Start Date End Date Ivana Martinez APRN PCP - General Family Medicine 05/13/22 01/27/24 documented as of this encounter
--- OUTSIDE RECORDS SUMMARY | 2024-09-10 12:52 | XMS_ITS | Encounter Summary ---
Author Organization [facility] Address [address] [place] [address] Care Team Providers Care Parking Lot Attendant And Cashier Name Role Phone Ivana Martinez BUS AIDE Primary Care Provider Reason for Visit * Reason Onset Date Comments Medication Refill 12/17/2022 Encounter Details Date Type Department Care Team (Late st Contact Info) Description 12/17/2022 Refill [facility] Dermatology at [address] [employer] [place], [place] [phone] Noel Brandon MD [address] [place] [phone] Medication Refill Social History Tobacco Use Types [...] documented as of this encounter Care Teams Parking Lot Attendant And Cashier Relationship Specialty Start Date End Date Ivana Martinez APRN PCP - General Family Medicine 05/13/22 01/27/24 documented as of this encounter
--- OUTSIDE RECORDS SUMMARY | 2024-09-10 12:52 | XMS_ITS | Encounter Summary ---
Author Organization [facility] Address [address] [place] [address] Care Team Providers Care Ultrasound Technol Name Role Phone Ivana aMrtinez HECTOR Primary Care Provider Reason for Visit * Reason Onset Date Comments Medication Refill 12/31/2022 Encounter Details Date Type Department Care Team (Late st Contact Info) Description 12/31/2022 Refill [facility] Internal Medicine [address] [place] [address] Zoya Clayton MD [address] [place] [phone] Medication Refill Social History Tobacco Use [...] documented as of this encounter Care Teams Ultrasound Technol Relationship Specialty Start Date End Date Ivana Martinez APRN PCP - General Family Medicine 05/13/22 01/27/24 documented as of this encounter
--- OUTSIDE RECORDS SUMMARY | 2024-09-10 12:52 | XMS_ITS | Encounter Summary ---
Author Organization [facility] Address [address] [place] [address] Care Team Providers Care Plant Worker Name Role Phone Ivana Martinez APRN Primary Care Provider Reason for Visit * Reason Onset Date Comments Medication Refill 10/20/2022 Encounter Details Date Type Department Care Team (Late st Contact Info) Description 10/20/2022 Refill [facility] Family Medicine [place] [address] [facility] [address] [place] [address] Ivana Martinez APRN [address] [place] [phone] Medication Refill Social History Tobacco Use [...] documented as of this encounter Care Teams Plant Worker Relationship Specialty Start Date End Date Ivana Martinez APRN PCP - General Family Medicine 05/13/22 01/27/24 documented as of this encounter
== END 2024-09-09 11:55 | disposition home or self-care (01) ==
LOC: HO.HOSX 11:54
PROVIDERS: Visit Provider Physician Assistant
DX: M17.11 Unilateral primary osteoarthritis, right knee (principal); M25.562 Pain in left knee
CPT/HCPCS: 73562; 99202

== ENCOUNTER 2024-09-17 12:21 | Outpatient (AMB) | payer OTHER, SELFPAY ==
--- NOTE | 2024-09-17 12:25 | A.OFFPC_ITS ---
Vital Signs 09/17/24 12:26 Height 5 ft 9.5 in Weight 194 lb 6 oz BMI 28.3 BP 132/88 Blood Pressure Location Lt brachial Position Sitting Pulse 89 Pulse Source Pulse Oximeter Pulse Oximetry (%) 99 Oxygen Delivery Method Room Air Intake Visit Reasons: 6 month follow up Allergies No Known Allergies Allergy (Verified 09/17/24 12:36) Medication List - Last Reconciled 09/17/24 by Shama Franco PA-C cetirizine mg PO DAILY fluconazole mg PO hydrochlorothiazide 25 mg PO DAILY ketoconazole 2% topical ketoconazole 2% 1 appl topical DAILY sildenafil (pulm.hypertension) 60 mg PO DAILY triamcinolone acetonide 0.1% 1 appl topical DAILY Tobacco use date assessed: 09/17/24 Dental Screening Dental Screen Date: 09/17/24 Did you have a dental visit in the last 12 months?: No Did you have a dental problem in the last 6 months where you did not have access to dental care?: No Was dental information given to patient?: Patient declined [facility] Medical History (Updated 09/17/24 @ 12:55 by Shama Franco PA-C) Overweight (BMI 25.0-29.9) Elevated bilirubin Follow-up exam, 3-6 months since previous exam Alcohol use disorder, mild, abuse Tobacco use disorder Tinea corporis Acquired hypothyroidism Essential hypertension Surgical History No pertinent past surgical history Social History Housing: Condominium Alcohol intake: current Alcohol intake frequency: a few times a week Patient Tobacco Use Status: Current everyday Tobacco user (chewing ) Tobacco use type: Smokeless Tobacco e-Cigarette/Vaping Use: Never Used Second Hand Smoke Exposure: Yes service: No Current occupational status: employed 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 1. Little interest or pleasure in doing things: not at all 2. Feeling down, depressed, or hopeless: not at all 3. Trouble falling or staying asleep, or sleeping too much: not at all 4. Feeling tired or having little energy: not at all 5. Poor appetite or overeating: not at all 6. Feeling bad about yourself - or that you are a failure or have let yourself or your family down: not at all 7. Trouble concentrating on things, such as reading the newspaper or watching television: not at all 8. Moving or speaking so slowly that other people could have noticed. Or the opposite - being so fidgety or restless that you have been moving around a lot more than usual: not at all 9. Thoughts that you would be better off or of hurting yourself in some way: not at all Total score: 0 Depression Screening Interpretation: Negative Depression Screening Done: Yes 58893 - PHQ-9 Billing: Yes Source: Developed by Drs. Hasmukh Canela, Nilam Hernandez, Elio Capps and colleagues, with an educational nury from [employer] ([employer]). Thrive Questionnaire Date Thrive assessed: 09/17/24 I am a: Patient What is your living situation today?: I have a steady place to live Within the past 12 months, did the food you bought not last and you didn't have the money to get more?: Never true Within the past 12 months, did you worry whether your food would run out before you got money to buy more?: Never true Do you have trouble paying for medicines?: No Do you have trouble getting transportation to medical appointments?: No Do you have trouble paying your heating and electricity bill?: No Do you have trouble taking care of your child, family member or friend?: No Do you have trouble with day-to-day activities such as bathing, preparing meals, shopping, managing finances, etc.?: No Are you currently unemployed and looking for a job?: No Are you interested in more education?: No THRIVE Score: 0 AUDIT C Alcohol Use Questionnaire (AUDIT-C) 1. How often do you have a drink containing alcohol?: 2-3 times a week 2. How many drinks containing alcohol do you have on a typical day when you are drinking?: 1 or 2 3. How often do you have six or more drinks on one occasion?: Never Total Score: 3 Score Reviewed/Action Taken: Yes RAISA-7 AMB Questionnaire RIASA-7 Date RAISA - 7 assessed: 09/17/24 Feeling nervous, anxious, or on edge: 0 = Not at all Not being able to stop or control worryin = Not at all Worrying too much about different things: 0 = Not at all Trouble relaxin = Not at all Being so restless that it is hard to sit still: 0 = Not at all Becoming easily annoyed or irritable: 0 = Not at all Feeling afraid as if something awful might happen: 0 = Not at all Total RAISA-7 score (0-4 normal; 5-9 mild; 10-14 moderate; 15-21 severe): 0 Source: Developed by Drs. Hasmukh Canela, Nilam Hernandez, Elio Capps and colleagues, with an educational nury from [employer] ([employer]). RAISA-7 Assessment Billing RAISA-7 Assessment Tool: RAISA-7 Assessment 07822 Physical exam (Primary Care) Vital Signs: Last Vital Signs Pulse 89 09/17/24 12:26 BP 132/88 09/17/24 12:26 Pulse Ox 99 09/17/24 12:26 Oxygen Delivery Method Room Air 09/17/24 12:26 Care Plan Goal for BP management: <130/80 BMI result Body Mass Index 28.3 BMI Assessment/Plan discussion: High BMI High, discussed plan: lifestyle, weight reduction, dietary, physical activity and alcohol moderation Tobacco/Smoking Status: Tobacco use Status Tobacco use date assessed 09/17/24 09/17/24 12:30 Patient Tobacco Use Status Current everyday Tobacco ( 09/17/24 12:30 chewing ) Tobacco use type Smokeless Tobacco 09/17/24 12:30 e-Cigarette/Vaping Use Never Used 09/17/24 12:30 PHQ-9: PHQ-9 Score PHQ-9: Total score 0 09/17/24 12:30 Depression Screening Interpretation: Negative Thrive Assessment: Date of Thrive Assessment Date Thrive assessed 09/17/24 09/17/24 12:30 Coding Level of Care Code Est Pt Level 4 (60408) Complex EM visit Add On G2211 Diagnoses Follow-up exam, 3-6 months since previous exam Z09 Alcohol use disorder, mild, abuse F10.10 Osteoarthritis of right knee M17.11 Internal derangement of right knee M23.91 Tobacco use disorder F17.200 Tinea corporis B35.4 Acquired hypothyroidism E03.9 Essential hypertension I10 Elevated bilirubin R17 Overweight (BMI 25.0-29.9) E66.3 Additional Codes RAISA-7 Assessment Billing - RAISA-7 Assessment Tool: RAISA-7 Assessment 80950 ([id number]) PHQ-9 - 89293 - PHQ-9 Billing: Yes ([id number]) Assessment & Plan Assessment & Plan (1) Follow-up exam, 3-6 months since previous exam: Code(s): Z09 - Encounter for follow-up examination after completed treatment for conditions other than malignant neoplasm Category: Medical (2) Alcohol use disorder, mild, abuse: Code(s): F10.10 - Alcohol abuse, uncomplicated Category: Medical Plan: Patient not interested in outpatient alcohol detox services at this time. Reports no withdrawal symptoms in the past for seizures. Will continue to monitor. (3) Osteoarthritis of right knee: Code(s): M17.11 - Unilateral primary osteoarthritis, right knee Category: Medical Plan: Patient being followed by Orthopedic has an MRI scheduled. Has knee brace in place. Will prescribe meloxicam. Condition is chronic and stable continue to monitor. (4) Internal derangement of right knee: Code(s): M23.91 - Unspecified internal derangement of right knee Category: Medical Plan: Patient being followed by Orthopedic has an MRI scheduled. Has knee brace in place. Will prescribe meloxicam. Condition is chronic and stable continue to monitor. (5) Tobacco use disorder: Code(s): F17.200 - Nicotine dependence, unspecified, uncomplicated Category: Medical Plan: Condition is chronic and stable will continue to monitor. (6) Tinea corporis: Code(s): B35.4 - Tinea corporis Category: Medical Plan: Patient to continue fluconazole, ketoconazole, triamcinolone. Condition is chronic and improving will continue to monitor. (7) Acquired hypothyroidism: Code(s): E03.9 - Hypothyroidism, unspecified Category: Medical Plan: Patient had blood work in February of 2020 4 and TSH level were normal. Condition is chronic and stable without any medications will continue to monitor. (8) Essential hypertension: Code(s): I10 - Essential (primary) hypertension Category: Medical Plan: Patient currently on Cialis 60 mg daily, hydrochlorothiazide 25 mg daily. Condition is chronic and stable and blood pressure at goal today will continue to monitor. (9) Elevated bilirubin: Code(s): R17 - Unspecified jaundice Category: Medical Plan: Due to history of alcohol use disorder patient noted to have an elevated bilirubin in February of 2024 of 1.3. Will reassess at next visit and if patient develops any abdominal pain will require abdominal ultrasound otherwise will continue to monitor. (10) Overweight (BMI 25.0-29.9): Code(s): E66.3 - Overweight Category: Medical Plan: Patient to improve his diet and exercise regimen. Condition is chronic and stable continue to monitor. Plan Plan - Repeat complete blood work including glucose, thyroid, liver panel, CBC, and vitamin levels ahead of next appointment. - Prescribe Meloxicam for knee pain, suspecting inflammation. Recommend non- steroidal anti-inflammatory drug as per symptoms. - Prescribe dry eye drops to alleviate nightly ocular itching. - Refill prescription for Cialis for sustained management of hypertension. - if liver enzymes continue to be elevated and patient develops any abdominal pain will order abdominal ultrasound due to alcohol usage history - Recommend multivitamins for men under 50 to compensate for dietary insufficiencies. - Advise on fasting blood work before the subsequent evaluation. - Encourage evaluation by an channel specialist for persistent ocular symptoms and seek dental care. Orders: Orders Comprehensive [place]. Panel Fast Today Z00.00 - Encounter for general adult medical examination without abnormal findings C Reactive Protein Today Z00.00 - Encounter for general adult medical examination without abnormal findings Magnesium Today Z00.00 - Encounter for general adult medical examination without abnormal findings Vitamin B1 Today Z00.00 - Encounter for general adult medical examination without abnormal findings Complete Blood Count Auto Diff Today Z00.00 - Encounter for general adult medical examination without abnormal findings Hemoglobin A1c Today Z00.00 - Encounter for general adult medical examination without abnormal findings Lipid Panel Today Z00.00 - Encounter for general adult medical examination without abnormal findings Liver Panel Today Z00.00 - Encounter for general adult medical examination without abnormal findings PSA,Total (Free>4and<10) Today Z00.00 - Encounter for general adult medical examination without abnormal findings TSH reflex Free T4 Today Z00.00 - Encounter for general adult medical examination without abnormal findings Vitamin B12 and Folate Today Z00.00 - Encounter for general adult medical examination without abnormal findings Vitamin D 25-OH Total Today Z00.00 - Encounter for general adult medical examination without abnormal findings Medications: New meloxicam 15 mg PO DAILY 90 tabs 1RF mv,Ca,wic-qiwl-AJ-lycopene 8 mg iron- 200 mcg-600 mcg (Men Under 50 Multivitamin) 1 tab PO DAILY 90 tabs 1RF polyethylene glycol 400 1% (Dry Eye Relief (PEG 400)) 1 drp ophthalmic (eye) QID PRN 15 mL 3RF dry eye(s) Changed From sildenafil (pulm.hypertension) administer doses at least 4-6 hours apart 60 mg PO DAILY To sildenafil (pulm.hypertension) administer doses at least 4-6 hours apart 60 mg (3 x 20 mg) PO DAILY 90 days 270 tabs 1RF Patient Instructions: Patient Instructions - Follow up in six months with completed blood work. - Begin taking dry eye drops as prescribed. - Take Meloxicam as directed for knee pain, ensuring to consume with food. - Maintain alcohol consumption within moderation. - Pursue an appointment with an marketing analytics specialist for persistent night eye itching. - Continue current antihypertensive therapy and monitor blood pressure regularly. - Ensure to have a meal or snack when taking NSAIDs like meloxicam. - Adhere to consistent rest whenever possible considering work commitments. Scribe Plan - Not visible on output: History of Present Illness The patient is a 39-year-old male presenting with a 6 month follow-up consultation focusing primarily on thyroid health and general wellness. He has a history of hypothyroidism, for which he previously used medication but discontinued treatment approximately 1-2 years ago upon receiving normal results. Recently, blood glucose levels were borderline elevated; however, the patient denies a diagnosis of diabetes. The patient reports occasional social alcohol consumption, primarily on weekends, along with noted elevated liver enzymes during previous evaluations, yet denies any abdominal pain. Reported hypertension is currently managed with medication and primary care follow-up. Past medical evaluations revealed hematuria, notably treated by a urologist, with no current symptoms indicated. The patient also mentions suffering from knee pain following an injury months ago, which correlates with findings of possible joint space narrowing in past imaging; an MRI is upcoming for further assessment. Ongoing allergic rhinitis is managed with cetirizine, and ketoconazole cream is used for a fungal skin infection. Additionally, the patient is experiencing significant occupational workload stress, reducing his ability to maintain a consistent dietary schedule and noting the consumption of fewer nutritious meals. 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 - Substance Use: Consumes alcohol socially, notably on weekends. - Dietary Habits: Vegetarian, occasionally consumes poultry; seeks dietary supplements for nutrition due to irregular eating pattern. - Physical Activity: Busy with professional engagements, potential limitations due to knee pain. - Sleep: Reports limited hours of sleep due to work demands. Review of Systems - Ophthalmologic: Reports nightly eye itching leading to sleep disturbances. Physical Exam Appearance: Alert. Oriented X3. No acute distress. Head: Normal external exam. Normocephalic. Atraumatic. Eyes: Pupils are equal, round, and reactive to light. Extraocular movements intact. Conjunctiva and sclera normal. Eyelids normal. Ears: External auditory canal normal. Tympanic membranes normal. Throat: Pharynx normal. Uvula midline. Moist mucous membranes. Neck: Normal inspection. Neck supple. Full range of motion. No adenopathy. Thyro id Normal. No meningeal signs. No neck mass noted. Cardiovascular: Normal heart rate and rhythm. Heart sound normal. No murmurs noted. Pulses normal throughout. Respiratory: No respiratory distress. Painless inspiration. Breath sounds normal. No wheezes/rales/rhonchi noted. Chest nontender. No accessory muscle usage noted or decreased air movement noted. Abdomen: Soft and nontender. Bowel sounds normal in all 4 quadrants. No distention noted. No organomegaly noted. No visible injury noted. Back: No costovertebral angle tenderness. Full range of motion noted. Skin: Skin warm and dry. Normal skin color. Normal skin turgor. No rashes/lesions/lacerations noted. Extremities: No lower extremity edema. Extremities exhibit normal range of motion. Extremities nontender. Neuro: Oriented X 3. No motor deficit. No sensory deficit. Reflexes normal. Results - Labs: Mildly elevated blood glucose (past result), elevated liver enzymes (past result). Plan - Repeat complete blood work including glucose, thyroid, liver panel, CBC, and vitamin levels ahead of next appointment. - Prescribe Meloxicam for knee pain, suspecting inflammation. Recommend non- steroidal anti-inflammatory drug as per symptoms. - Prescribe dry eye drops to alleviate nightly ocular itching. - Refill prescription for Cialis for sustained management of hypertension. - if liver enzymes continue to be elevated and patient develops any abdominal pain will order abdominal ultrasound due to alcohol usage history - Recommend multivitamins for men under 50 to compensate for dietary insufficiencies. - Advise on fasting blood work before the subsequent evaluation. - Encourage evaluation by an channel specialist for persistent ocular symptoms and seek dental care. Patient was informed and verbally consented to the use of an ambient scribe for clinic note documentation during this visit. Discussion Notes I discussed with the patient the need for routine monitoring of liver enzymes and glucose levels due to his current lifestyle and previous results. We explored the option of an abdominal ultrasound to ensure the health of his liver, given his description of alcohol use. I advised him on the benefits of consistency in dietary habits, particularly due to his irregular eating schedule, and the use of a multivitamin supplement. We reviewed the management of knee pain, and he opted for NSAIDs over immediate cortisone injection until further evaluation by an MRI. He was amenable to the recommended dry eye drops prescription to address reported ocular issues. Patient Instructions - Follow up in six months with completed blood work. - Begin taking dry eye drops as prescribed. - Take Meloxicam as directed for knee pain, ensuring to consume with food. - Maintain alcohol consumption within moderation. - Pursue an appointment with an marketing analytics specialist for persistent night eye itching. - Continue current antihypertensive therapy and monitor blood pressure regularly. - Ensure to have a meal or snack when taking NSAIDs like meloxicam. - Adhere to consistent rest whenever possible considering work commitments.
[2024-09-17 12:26] VITALS: BP 132/88; PULSE 89; O2SAT 99; BMI 28.3
--- OUTSIDE RECORDS SUMMARY | 2024-09-17 12:46 | XMS_ITS | Encounter Summary ---
Author Organization [facility] Address [address] [place] [address] Care Team Providers Care Residential Advisor Name Role Phone Unavailable Primary Care Provider Unavailabl e Encounter Details Date Type Department Care Team (Late st Contact Info) Description 08/19/2024 Lab Requisition [facility] - Main Lab [address] [place] [address] Denzel Longo MD [address] [place] [address] [place] [phone] Local infection of the skin and subcutaneous tissue, unspecified Social History Tobacco Use Types Packs/Day Years Used Date Smoking Tobacco: Never Assessed Sex and Gender Information Value Date Recorded Sex Assigned at Not on file Legal Sex Male 9:02 PM EST Gender Identity Not on file Sexual Orientation Not on file documented as of this encounter Plan of Treatment Not on file documented as of this encounter Procedures Procedure Name Priority Date/Time Associated Diagnosis Comments CULTURE FUNGAL, OTHER Routine 08/19/2024 12:00 AM EST Local infection of the skin and subcutaneous tissue, unspecified documented in this encounter Results * Culture fungal, other (08/19/2024 12:00 AM EST) Culture, Fungus Negative for Fungus after 4 Weeks 09/16/2024 1:07 PM EST [facility] Skin 08/19/2024 08/19/2024 5:1 5 PM EST us Denzel Longo MD LAB MICROBIOLOGY - G ENERAL ORDERABLES Final Result [facility] [address] [place] [address], documented in this encounter Visit Diagnoses Diagnosis Local infection of the skin and subcutaneous tissue, unspecified documented in this encounter
--- OUTSIDE RECORDS SUMMARY | 2024-09-17 12:46 | XMS_ITS | Encounter Summary ---
Author Organization [facility] Address [address] [place] [address] Care Team Providers Care Clinical Neuropsychologist Name Role Phone Ivana Martinez APRN Primary Care Provider Encounter Details Date Type Department Care Team (Late st Contact Info) Description 05/05/2019 Scanned Document Scralet Espinosa M.D. [address] [facility] [address] [place] [address] Jeffy Espinosa MD [address] [place] [phone] Social History Tobacco Use Types Packs/Day [...] documented as of this encounter Care Teams Clinical Neuropsychologist Relationship Specialty Start Date End Date Ivana Martinez APRN PCP - General Family Medicine 05/13/22 01/27/24 documented as of this encounter
--- OUTSIDE RECORDS SUMMARY | 2024-09-17 12:46 | XMS_ITS | Encounter Summary ---
Author Organization [facility] Address [address] [place] [address] Care Team Providers Care Flange Machine Operator Name Role Phone Ivana Martinez LOGISTICS TEAM LEAD Primary Care Provider Reason for Visit * Reason Comments Medication Refill Encounter Details Date Type Department Care Team (Late st Contact Info) Description 12/30/2021 Refill [facility] Gastroenterology [facility] [address] [facility] [address] [place], [place] [id number] Matthew Huynh MD [address] [place] [address] Medication Refill Social History Tobacco [...] documented as of this encounter Care Teams Flange Machine Operator Relationship Specialty Start Date End Date Ivana Martinez APRN PCP - General Family Medicine 05/13/22 01/27/24 documented as of this encounter
--- OUTSIDE RECORDS SUMMARY | 2024-09-17 12:46 | XMS_ITS | Encounter Summary ---
Author Organization [facility] Address [address] [place] [address] Care Team Providers Care Clinical Nursing Assistant Name Role Phone Ivana Martinez HECTOR Primary Care Provider Encounter Details Date Type Department Care Team (Late st Contact Info) Description 10/12/2021 Scanned Document [facility] Gastroenterology [facility] [address] [place] [address] Matthew Huynh MD [address] [place] [address] Social History Tobacco Use Types [...] as of this encounter Care Teams Clinical Nursing Assistant Relationship Specialty Start Date End Date Ivana Martinez APRN PCP - General Family Medicine 05/13/22 01/27/24 documented as of this encounter
--- OUTSIDE RECORDS SUMMARY | 2024-09-17 12:46 | XMS_ITS | Encounter Summary ---
Author Organization [facility] Address [address] [place] [address] Care Team Providers Care Fitness And Wellness Director Name Role Phone Ivana Martinez HECTOR Primary Care Provider Encounter Details Date Type Department Care Team (Late st Contact Info) Description 08/22/2021 Scanned Document [facility] Internal Medicine [address] [place], [place] [id number] Zoya Clayton MD [address] [phone] Social History Tobacco Use Types [...] documented as of this encounter Care Teams Fitness And Wellness Director Relationship Specialty Start Date End Date Ivana Martinez APRN PCP - General Family Medicine 05/13/22 01/27/24 documented as of this encounter
--- OUTSIDE RECORDS SUMMARY | 2024-09-17 12:46 | XMS_ITS | Encounter Summary ---
Author Organization [facility] Address [address] [place] [address] Care Team Providers Care R Programmer Name Role Phone Ivana Martinez HECTOR Primary Care Provider Reason for Visit * Reason Onset Date Comments Medication Refill 02/26/2022 Encounter Details Date Type Department Care Team (Late st Contact Info) Description 02/26/2022 Refill [facility] Internal Medicine [address] [place] [address] Zoya Clayton MD [address] [place] [phone] Medication Refill Social History Tobacco Use [...] documented as of this encounter Care Teams R Programmer Relationship Specialty Start Date End Date Ivana Martinez APRN PCP - General Family Medicine 05/13/22 01/27/24 documented as of this encounter
--- OUTSIDE RECORDS SUMMARY | 2024-09-17 12:46 | XMS_ITS | Encounter Summary ---
Author Organization [facility] Address [address] [place] [address] Care Team Providers Care Derrick Follower Name Role Phone Ivana Martinez HECTOR Primary Care Provider Reason for Visit * Reason Comments Medication Refill Encounter Details Date Type Department Care Team (Late st Contact Info) Description 09/29/2020 Refill [facility] Family Medicine [address] [place], [place] [phone] Zoya Clayton MD [address] [phone] Medication Refill Social History Tobacco [...] documented as of this encounter Care Teams Derrick Follower Relationship Specialty Start Date End Date Ivana Martinez APRN PCP - General Family Medicine 05/13/22 01/27/24 documented as of this encounter
--- OUTSIDE RECORDS SUMMARY | 2024-09-17 12:46 | XMS_ITS | Encounter Summary ---
Author Organization [facility] Address [address] [place] [address] Care Team Providers Care Relief Master Name Role Phone Ivana Martinez HECTOR Primary Care Provider Reason for Visit * Reason Onset Date Comments Medication Refill 07/12/2021 Encounter Details Date Type Department Care Team (Late st Contact Info) Description 07/12/2021 Refill [facility] Internal Medicine [address], 1st [place] [address] Zoya Clayton MD [address] [place] [phone] Medication Refill Social History Tobacco Use [...] documented as of this encounter Care Teams Relief Master Relationship Specialty Start Date End Date Ivana Martinez APRN PCP - General Family Medicine 05/13/22 01/27/24 documented as of this encounter
--- OUTSIDE RECORDS SUMMARY | 2024-09-17 12:46 | XMS_ITS | Encounter Summary ---
Author Organization [facility] Address [address] [place] [address] Care Team Providers Care Ticket Marker Name Role Phone Ivana Martinez HECTOR Primary Care Provider Encounter Details Date Type Department Care Team (Late st Contact Info) Description 11/13/2020 Scanned Document [facility] Internal Medicine [address], 1st Floor [place], [place] [address] Zoya Clayton MD [facility] [address] [phone] Social History Tobacco Use Types [...] documented as of this encounter Care Teams Ticket Marker Relationship Specialty Start Date End Date Ivana Martinez APRN PCP - General Family Medicine 05/13/22 01/27/24 documented as of this encounter
--- OUTSIDE RECORDS SUMMARY | 2024-09-17 12:46 | XMS_ITS | Encounter Summary ---
Author Organization [facility] Address [address] [place] [address] Care Team Providers Care Reimbursement Consultant Name Role Phone Ivana Martinez HECTOR Primary Care Provider Encounter Details Date Type Department Care Team (Late st Contact Info) Description 08/27/2021 Scanned Document [address] Online [place] [facility] [address] [place] [address] Provider, historical . Social History Tobacco [...] documented as of this encounter Care Teams Reimbursement Consultant Relationship Specialty Start Date End Date Ivana Martinez APRN PCP - General Family Medicine 05/13/22 01/27/24 documented as of this encounter
--- OUTSIDE RECORDS SUMMARY | 2024-09-17 12:46 | XMS_ITS | Clinical Summary ---
Author Organization [address] Address [address] [place] [address] Care Team Providers Care Swing Type Lathe Operator Name Role Phone Unavailable Primary Care [...] age to complete this topic Pneumococcal Vaccine (2 - 49 years) Aged Out No longer eligible based on [...] - 5.6 % 02/26/2023 7:37 PM EDT [facility] Comment: Hemoglobin A1c values of 5.7-6.4 [...] Glucose mg/dL 120 mg/dL 02/26/2023 7:37 PM T [facility] Comment: Estimated average glucose (eAG) is a calculated value designed to estimate ??the expected average blood glucose level throughout the day from a single ??measurement of ??glycated hemoglobin A1C (HbA1c) and follows the calculation proposed by the [place] [employer] (Diabetes Care 31: 1-6, 2008). It may have less accuracy in children, women and patients with certain erythrocyte disorders. Blood Venipuncture / Unknown 02/26/2023 11:12 AM EDT 02/26/2023 11:12 AM EDT Ivana Martinez APRN LAB BLOOD ORDERABLES Fi nal Result [address] [phone] * Hepatitis C Ab with reflex to HCV PCR (05/13/2022 10:46 AM EDT) Hepatitis C Ab Initial Result 0.03 S/CO 05/13/2022 1:44 PM EDT [facility] Hepatitis C Ab Interpretation Non-React lilo Non-React lilo 05/13/2022 1:44 PM T [facility] Blood Venipuncture / Unknown 05/13/2022 10:46 AM EDT 05/13/2022 10:46 AM EDT us Ivana Martinez DENTAL OFFICER LAB BLOOD ORDERABLES Fi nal Result [address] [phone] * Colonoscopy (10/12/2021 7:19 AM EST) Colonoscopy Endoscopy Patient Name: Jay Guillermo ? Procedure Date: 10/12/2021 7:19 AM ?Date of : 1985 Age: 36 ? Gender: Male Admit Type: Outpatient ?CSN #: [id number] Note Status: Finalized ?Attending MD: Matthew Huynh [...] oxygen ? saturations were monitored continuously. The [id number] ? [id number] was introduced through the anus and advanced [...] Procedure Code(s): ? --- Professional --- ? 38231, Colonoscopy, flexible; with biopsy, single or ? multiple Diagnosis Code(s): ? --- Professional --- ? K62.89, Other specified diseases of anus and rectum ? R10.84, Generalized abdominal pain ? R19.7, Diarrhea, unspecified CPT copyright 2020 [employer]. All rights reserved. The codes documented in this report are preliminary and upon messenger floorperson review may be revised to meet current compliance requirements. Attending Participation: ? I personally performed the entire procedure. ? Matthew Huynh MD _ Matthew Huynh MD 10/12/2021 11:45:52 AM This report has been signed electronically. Number of Addenda: 0 Note Initiated On: 10/12/2021 7:19 AM Estimated Blood Loss: ? Estimated blood loss: none. 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
--- OUTSIDE RECORDS SUMMARY | 2024-09-17 12:46 | XMS_ITS | Encounter Summary ---
Author Organization [facility] Address [address] [place] [address] Care Team Providers Care Dimethylaniline Sulfator Operator Name Role Phone Ivana Martinez HECTOR Primary Care Provider Reason for Visit * Reason Comments Medication Refill Encounter Details Date Type Department Care Team (Late st Contact Info) Description 06/20/2021 Refill [facility] Internal Medicine [address], [address] [place] [address] Zoya Clayton MD [facility] [address] [phone] Medication Refill Social History Tobacco [...] documented as of this encounter Care Teams Dimethylaniline Sulfator Operator Relationship Specialty Start Date End Date Ivana Martinez APRN PCP - General Family Medicine 05/13/22 01/27/24 documented as of this encounter
--- OUTSIDE RECORDS SUMMARY | 2024-09-17 12:46 | XMS_ITS | Encounter Summary ---
Author Organization [facility] Address [address] [place] [address] Care Team Providers Care Manager Food Name Role Phone Ivana Martinez APRN Primary Care Provider Encounter Details Date Type Department Care Team (Late st Contact Info) Description 02/26/2023 Orders Only [facility] Family Medicine [address] [place] [address] Ivana Martinez APRN [address] [place] [address] [address] [place] [address] Hypertension, unspecified type; Hypothyroidism, unspecified [...] 4.0 - 11.0 x1000/??L 02/26/2023 3:06 PM [facility] RBC 5.06 4.00 - 6.00 M/??L 02/26/2023 3:06 PM [facility] Hemoglobin 16.4 13.2 - 17.1 g/dL 02/26/2023 3:06 PM [facility] Hematocrit 44.90 38.50 - 50.00 % 02/26/2023 3:06 PM [facility] MCV 88.7 80.0 - 100.0 fL 02/26/2023 3:06 PM [facility] MCH 32.4 27.0 - 33.0 pg 02/26/2023 3:06 PM [facility] MCHC 36.5(H) 31.0 - 36.0 g/dL 02/26/2023 3:06 PM [facility] RDW-CV 12.6 11.0 - 15.0 % 02/26/2023 3:06 PM [facility] Platelets 331 150 - 420 x1000/??L 02/26/2023 3:06 PM [facility] MPV 9.8 8.0 - 12.0 fL 02/26/2023 3:06 PM [facility] Neutrophils 42.8 39.0 - 72.0 % 02/26/2023 3:06 PM [facility] Lymphocytes 37.2 17.0 - 50.0 % 02/26/2023 3:06 PM [facility] Monocytes 9.5 4.0 - 12.0 % 02/26/2023 3:06 PM [facility] Eosinophils 8.8(H) 0.0 - 5.0 % 02/26/2023 3:06 PM [facility] Basophil 1.3 0.0 - 1.4 % 02/26/2023 3:06 PM [facility] Immature Granulocytes 0.4 0.0 - 1.0 % 02/26/2023 3:06 PM EDT [facility] nRBC 0.0 0.0 - 1.0 % 02/26/2023 3:06 PM EDT [facility] ANC(Abs Neutrophil Count) 2.30 2.00 - 7.60 x 1000/??L 02/26/2023 3:06 PM [facility] Absolute Lymphocyte Count 2.00 0.60 - 3.70 x 1000/??L 02/26/2023 3:06 PM EDT [facility] Monocyte Absolute Count 0.51 0.00 - 1.00 x 1000/??L [facility]23 [facility] Eosin[facility] Absolute Count 0.47 0.00 - 1.00 x 1000/??L 02/26/2023 3:06 PM [facility] Basophil Absolute Count 0.07 0.00 - 1.00 x 1000/??L 02/26/2023 3:06 PM [facility] Absolute Immature Granulocyte Count 0.02 0.00 - 0.30 x 1000/??L 02/26/2023 3:06 PM [facility] Absolute nRBC 0.00 0.00 - 1.00 x 1000/??L 02/26/2023 3:06 PM [facility] Blood Venipuncture / Unknown 02/26/2023 11:12 AM EDT 02/26/2023 11:12 AM EDT us Ivana Martinez CANAL LOCK TENDER CHIEF OPERATOR LAB BLOOD ORDERABLES Fi nal Result [address] [phone] * (ABNORMAL) Comprehensive metabolic panel (02/26/2023 11:12 AM EDT) Sodium 140 136 - 144 mmol/L 02/26/2023 3:26 PM EDT [facility] Potassium 4.1 3.3 - 5.3 mmol/L 02/26/2023 3:26 PM T [facility] Chloride 99 98 - 107 mmol/L 02/26/2023 3:26 PM EDT [facility] CO2 30 20 - 30 mmol/L 02/26/2023 3:26 PM [facility] Anion Gap 11 7 - 17 02/26/2023 3:26 PM [facility] Glucose 96 70 - 100 mg/dL 02/26/2023 3:26 PM [facility] BUN 8 6 - 20 mg/dL 02/26/2023 3:26 PM [facility] Creatinine 0.76 0.40 - 1.30 mg/dL 02/26/2023 3:26 PM [facility] Calcium 10.0 8.8 - 10.2 mg/dL 02/26/2023 3:26 PM [facility] BUN/Creatinine Ratio 10.5 8.0 - 23.0 02/26/2023 3:26 PM [facility] Total Protein 7.7 6.6 - 8.7 g/dL 023 3:26 PM [facility] Albumin 5.0(H) 3.6 - 4.9 g/dL 02/26/2023 3:26 PM [facility] Total Bilirubin 0.4 <=1.2 mg/dL 02/27/20 3:26 PM [facility] Alkaline Phosphatase 57 9 - 122 U/L 02/26/2023 3:26 PM [facility] Alanine Aminotransferase (ALT) 27 9 - 59 U/L 02/26/2023 3:26 PM [facility] Comment:Calcium dobesilate c an cause artificially low ALT results at therapeutic concentrations Aspartate Aminotransferase (AST) 40(H) 10 - 35 U/L 02/26/2023 3:26 PM [facility] Globulin 2.7 2.3 - 3.5 g/dL 02/26/2023 3:26 PM [facility] A/G Ratio 1.9 1.0 - 2.2 02/26/2023 3:26 PM [facility] AST/ALT Ratio 1.5 Reference Range Not Established 02/26/2023 3:26 PM [facility] eGFR (Creatinine) >60 >=60 mL/min/1.73m2 02/26/2023 3:26 PM [facility] Comment: Values < 60 mL/min/1.73 m2 may indicate CKD if present for more than three months AND creatinine is at steady state. The eGFR provides a rough estimate of kidney function. On 03/19/22 all [facility] Clinical Labs and Epic began using a rif-hnmm-xuxox formula for estimating GFR called CKD-EPI Creatinine 2020. This equation reports eGFR based on creatinine, patient age, clinical sex, and is standardized to a body surface area of 1.73 m2. For the same creatinine, this new race-free eGFR will be lower than prior reported Black eGFR results and higher than prior Non-Black eGFR results. For further guidance, please refer to the CKD: Adult Document Control Supervisor Signature pathway. Blood Venipuncture / Unknown 02/26/2023 11:12 AM EDT 02/26/2023 11:12 AM EDT Ivana Martinez CANAL LOCK TENDER CHIEF OPERATOR LAB BLOOD ORDERABLES Fi nal Result [address] [phone] * (ABNORMAL) Hemoglobin A1c (02/26/2023 11:12 AM EDT) [facility] Signature Hemoglobin A1c 5.8(H) 4.0 - 5.6 % 02/26/2023 7:37 PM T [facility] Comment: Hemoglobin A1c values of 5.7-6.4 [...] mg/dL 120 mg/dL 02/26/2023 7:37 PM EDT [facility] Comment: Estimated average glucose (eAG) is a calculated value designed to estimate ??the expected average blood glucose level throughout the day from a single ??measurement of ??glycated hemoglobin A1C (HbA1c) and follows the calculation proposed by the [place] [employer] (Diabetes Care 31: 1-6, 2008). It may have less accuracy in children, women and patients with certain erythrocyte disorders. Blood Venipuncture / Unknown 02/26/2023 11:12 AM EDT 02/26/2023 11:12 AM EDT us Ivana Martinez APRN LAB BLOOD ORDERABLES Fi nal Result Performing Organization Address [facility] [place] Co de Phone Number [address] [phone] * (ABNORMAL) Lipid panel (02/26/2023 11:12 AM EDT) Cholesterol 180 See Comment mg/dL 02/26/2023 3:26 PM EDT [facility] Comment: Total Cholesterol (mg/dL) ?Adults (>18 years) ? Children (<18 years) Desirable ?<200 ? <170 Borderline-High ?200-239 ?170-199 High ? >=240 ?>=200 ? HDL 62 >=40 mg/dL 02/26/2023 3:26 PM [facility] Triglycerides 161(H) See Comment mg/dL 02/26/2023 3:26 PM [facility] Comment: Triglycerides (mg/dL) ?Adults (>18 years) ? Children (<18 years) Desirable ?<150 ? Not Established Borderline-High ?150-199 ?Not Established High ? 200-499 ?Not Established ?? Chol/HDL Ratio 2.9 0.0 - 5.0 02/26/2023 3:26 PM [facility] LDL Calculated 91 See Comment mg/dL 02/26/2023 3:26 PM [facility] Comment: Effective 01/09/2022, LDL is calculated [...] EDT 02/26/2023 11:12 AM EDT Ivana Martinez CANAL LOCK TENDER CHIEF OPERATOR LAB BLOOD ORDERABLES [place] [address], [facility] [phone] * (ABNORMAL) Vitamin D, 25-hydroxy (02/26/2023 11:12 AM EDT) Vitamin Z80-Xatogsy 11.1(L) 30.0 - 100.0 ng/mL 02/27/2023 10:42 AM EDT [facility] Comment: Vitamin D Status: ??Results in ng/mL <10.0: ??Deficient 10.0 - 29.9: ??Insufficient 30.0 - 100.0: ??Sufficient >100: ??Toxic Reference ranges established by [employer]. Blood Venipuncture / Unknown 02/26/2023 11:12 AM EDT 02/26/2023 11:12 AM EDT Ivana Petasotnle CANAL LOCK TENDER CHIEF OPERATOR LAB BLOOD ORDERABLES Fi nal Result Performing Organization Address [facility] [place] Co de Phone Number [address] [phone] * (ABNORMAL) Gamma GT (02/26/2023 11:12 AM EDT) GGT 108(H) <48 U/L 02/26/2023 3:26 PM EDT [facility] Blood Venipuncture / Unknown 02/26/2023 11:12 AM EDT 02/26/2023 11:12 AM EDT [facility] CANAL LOCK TENDER CHIEF OPERATOR LAB BLOOD ORDERABLES Fi nal Result Performing Organization Address [facility] Number [address] [phone] * TSH w/reflex to FT4 ( GH LMW Q YH) (02/26/2023 11:12 AM EDT) Thyroid Stimulating Hormone 2.550 See Comment ??IU/mL 02/26/2023 3:26 PM EDT [facility] Comment: Male & Non- Females: 0.270-4.200 ??IU/mL 1st Trimester: 0.110-3.480 ??IU/mL 2nd Trimester: 0.320-3.850 ??IU/mL Blood Venipuncture / Unknown 02/26/2023 11:12 AM EDT 02/26/2023 11:12 AM EDT Ivana Pettingle CANAL LOCK TENDER CHIEF OPERATOR LAB BLOOD ORDERABLES Fi nal Result Performing Organization Address [facility] [place] Co de Phone Number [address] [phone] documented in this encounter Visit Diagnoses Diagnosis Hypertension, unspecified type Hypothyroidism, unspecified type LFT elevation Other abnormal blood chemistry Vitamin D deficiency Unspecified vitamin D deficiency documented in this encounter Additional Health Concerns Assessment Noted Time PHQ-9 Depression Total Score: 0 02/27/20 23 10:41 AM EDT documented as of this encounter Care Teams Manager Food Relationship Specialty Start Date End Date Ivana Martinez APRN PCP - General Family Medicine 05/13/22 01/27/24 documented as of this encounter
--- OUTSIDE RECORDS SUMMARY | 2024-09-17 12:46 | XMS_ITS | Encounter Summary ---
Author Organization [facility] Address [address] [place] [address] Care Team Providers Care Drum Drier Name Role Phone Ivana Martinez HECTOR Primary Care Provider Encounter Details Date Type Department Care Team (Late st Contact Info) Description 09/26/2021 Scanned Document [facility] Internal Medicine [address], 1st Floor [place], [place] [address] Zoya Clayton MD [facility] [address] [address] Social History Tobacco Use Types [...] documented as of this encounter Care Teams Drum Drier Relationship Specialty Start Date End Date Ivana Martinez APRN PCP - General Family Medicine 05/13/22 01/27/24 documented as of this encounter
--- OUTSIDE RECORDS SUMMARY | 2024-09-17 12:46 | XMS_ITS | Encounter Summary ---
Author Organization [facility] Address [address] [place] [address] Care Team Providers Care Mainframe Programmer Name Role Phone Ivana Martinez HECTOR Primary Care Provider Reason for Visit * Reason Comments Medication Refill Encounter Details Date Type Department Care Team (Late st Contact Info) Description 04/01/2022 Refill [facility] Internal Medicine [address]st [place] [address] Zoya Clayton MD [facility] [address] [address] Medication Refill Social History Tobacco [...] documented as of this encounter Care Teams Mainframe Programmer Relationship Specialty Start Date End Date Ivana Martinez APRN PCP - General Family Medicine 05/13/22 01/27/24 documented as of this encounter
--- OUTSIDE RECORDS SUMMARY | 2024-09-17 12:46 | XMS_ITS | Clinical Summary ---
Author Organization [facility] Address [address] [place] [address] Phone Care Team Providers Care Lip Reading Teacher Name Role Phone Unavailable Primary Care Provider Unavailabl e Encounters Date Type Department Care Team Description 08/19/2024 Lab Requisition [facility] [address] [facility] [place] [address] Denzel Longo MD Local infection [...] Influencers of Health Screening 08/29/2023 COVID-19 Vaccine ( - 2023-2 5 season) 2024 Influenza Vaccine (#1) 2024 [...] subcutaneous tissue, unspecified from Last 3 Months Results * Culture fungal, other (08/19/2024 12:00 AM EST) Culture, Fungus Negative for Fungus after 4 Weeks 09/16/2024 1:07 PM EST [facility] Skin 08/19/2024 08/19/2024 5:1 5 PM EST Denzel Longo MD LAB MICROBIOLOGY - G ENERAL ORDERABLES Final Result [facility] [address] [place] [address], [place] [phone] from Last 3 Months Insurance MEDICAID - [place]
--- OUTSIDE RECORDS SUMMARY | 2024-09-17 12:46 | XMS_ITS | Encounter Summary ---
Author Organization [facility] Address [address] [place] [address] Care Team Providers Care Dietary Service Aide Name Role Phone Ivana Martinez HECTOR Primary Care Provider Reason for Visit * Reason Onset Date Comments Medication Refill 10/29/2021 Encounter Details Date Type Department Care Team (Late st Contact Info) Description 10/29/2021 Refill [facility] Internal Medicine [address], [address] [place] [address] Zoya Clayton MD [address] [place] [phone] Medication Refill Social History Tobacco Use [...] documented as of this encounter Care Teams Dietary Service Aide Relationship Specialty Start Date End Date Ivana Martinez APRN PCP - General Family Medicine 05/13/22 01/27/24 documented as of this encounter
--- OUTSIDE RECORDS SUMMARY | 2024-09-17 12:46 | XMS_ITS | Clinical Summary ---
Author Organization [facility] Address [address] [place] [address] Care Team Providers Care Clothes Wringer Name Role Phone Pcp, No Primary Care [...] age to complete this topic Care Teams Clothes Wringer Relationship Specialty Start Date End Date Pcp, No PCP - General 10/21/22
--- OUTSIDE RECORDS SUMMARY | 2024-09-17 12:46 | XMS_ITS | Encounter Summary ---
Author Organization [facility] Address [address] [place] [address] Care Team Providers Care Business Analyst Name Role Phone Ivana Martinez HECTOR Primary Care Provider Reason for Visit * Reason Onset Date Comments Medication Refill 05/02/2022 Encounter Details Date Type Department Care Team (Late st Contact Info) Description 05/02/[address] [facility] Internal Medicine [address] [place] [address] Zoya Clayton MD [address] [place] [phone] Medication Refill Social History Tobacco Use [...] documented as of this encounter Care Teams Business Analyst Relationship Specialty Start Date End Date Ivana Martinez APRN PCP - General Family Medicine 05/13/22 01/27/24 documented as of this encounter
--- OUTSIDE RECORDS SUMMARY | 2024-09-17 12:46 | XMS_ITS | Encounter Summary ---
Author Organization [facility] Address [address] [place] [address] Care Team Providers Care Transmission Inspector Name Role Phone Ivana Martinez HECTOR Primary Care Provider Encounter Details Date Type Department Care Team (Late st Contact Info) Description 11/08/2020 Scanned Document [address] [facility] [address] [place] [id number] External, Provider Social History Tobacco Use Types [...] documented as of this encounter Care Teams Transmission Inspector Relationship Specialty Start Date End Date Ivana Martinez APRN PCP - General Family Medicine 05/13/22 01/27/24 documented as of this encounter
--- OUTSIDE RECORDS SUMMARY | 2024-09-17 12:46 | XMS_ITS | Encounter Summary ---
Author Organization [facility] Address [address] [place] [address] Care Team Providers Care Studio Grip Name Role Phone JohannaAndrew mcelroyhanie HECTOR Primary Care Provider Encounter Details Date Type Department Care Team (Late st Contact Info) Description 08/18/2021 EpicOnHand Encounter [facility] Internal Medicine [address] [place] [address] Leny Hernandez MD Social History Tobacco Use [...] documented as of this encounter Care Teams Studio Grip Relationship Specialty Start Date End Date Ivana Martinez APRN PCP - General Family Medicine 05/13/22 01/27/24 documented as of this encounter
--- OUTSIDE RECORDS SUMMARY | 2024-09-17 12:46 | XMS_ITS | Encounter Summary ---
Author Organization [facility] Address [address] [place] [address] Care Team Providers Care Death Surveys Coder Name Role Phone JohannaAndrew mcelroyhanie HECTOR Primary Care Provider Encounter Details Date Type Department Care Team (Late st Contact Info) Description 11/19/2021 Scanned Document [facility] Internal Medicine [address], 1st [address] [place], [place] [phone] Provider, historical . Social History Tobacco Use [...] RIGHT AP INTERNA L AP EXTERNAL AXILLARY ([facility]) Routine 11/17/2021 documented in this encounter [...] documented as of this encounter Care Teams Death Surveys Coder Relationship Specialty Start Date End Date Ivana Martinez APRN PCP - General Family Medicine 05/13/22 01/27/24 documented as of this encounter
--- OUTSIDE RECORDS SUMMARY | 2024-09-17 12:46 | XMS_ITS | Encounter Summary ---
Author Organization [facility] Address [address] [place] [phone] Care Team Providers Care Chemical Dependency Nurse Name Role Phone Andrew Martinezhanie HECTOR Primary Care Provider Encounter Details Date Type Department Care Team (Late st Contact Info) Description 09/26/2021 Scanned Document [facility] Internal Medicine [address], 1st Floor [place], [place] [address] External, Provider Social History Tobacco Use Types [...] documented as of this encounter Care Teams Chemical Dependency Nurse Relationship Specialty Start Date End Date Ivana Martinez APRN PCP - General Family Medicine 05/13/22 01/27/24 documented as of this encounter
--- OUTSIDE RECORDS SUMMARY | 2024-09-17 12:46 | XMS_ITS | Encounter Summary ---
Author Organization [facility] Address [address] [place] [address] Care Team Providers Care Print Controller Name Role Phone Ivana Martinez HECTOR Primary Care Provider Reason for Visit * Reason Comments Medication Refill Encounter Details Date Type Department Care Team (Late st Contact Info) Description 06/01/2021 Refill [facility] Internal Medicine [address], 1st [place] [address] Zoya Clayton MD [facility] [address] [phone] Medication Refill Social History Tobacco [...] documented as of this encounter Care Teams Print Controller Relationship Specialty Start Date End Date Ivana Martinez APRN PCP - General Family Medicine 05/13/22 01/27/24 documented as of this encounter
--- OUTSIDE RECORDS SUMMARY | 2024-09-17 12:46 | XMS_ITS | Encounter Summary ---
Author Organization [facility] Address [address] [place] [address] Care Team Providers Care Director Of Enrollment Name Role Phone Ivana Martinez HECTOR Primary Care Provider Encounter Details Date Type Department Care Team (Late st Contact Info) Description 11/17/2021 Scanned Document [facility] Internal Medicine [address], 1st Floor [place], [place] [address] Zoya Clayton MD [address] [phone] Social History Tobacco Use Types [...] documented as of this encounter Care Teams Director Of Enrollment Relationship Specialty Start Date End Date Ivana Martinez APRN PCP - General Family Medicine 05/13/22 01/27/24 documented as of this encounter
--- OUTSIDE RECORDS SUMMARY | 2024-09-17 12:46 | XMS_ITS | Encounter Summary ---
Author Organization [facility] Address [address] [place] [address] Care Team Providers Care Lawn Sprinkler Installer Name Role Phone Ivana Martinez APRN Primary Care Provider Encounter Details Date Type Department Care Team (Late st Contact Info) Description 05/06/2019 Scanned Document Scarlet Espinosa M.D. [address] [facility] [address] [place] [address] Jeffy Espinosa MD [address] [place] [phone] Social History Tobacco Use Types Packs/Day [...] documented as of this encounter Care Teams Lawn Sprinkler Installer Relationship Specialty Start Date End Date Ivana Martinez APRN PCP - General Family Medicine 05/13/22 01/27/24 documented as of this encounter
--- OUTSIDE RECORDS SUMMARY | 2024-09-17 12:46 | XMS_ITS | Encounter Summary ---
Author Organization [facility] Address [address] [place] [address] Care Team Providers Care Hourly Associate Name Role Phone Pcp, No Primary Care Provider Unavailabl e Encounter Details Date Type Department Care Team (Late st Contact Info) Description 10/12/2022 Scanned Document [facility] [address] [phone] Matthew Rodney MD [address] [place] [phone] Social History Tobacco Use Types Packs/Day Years Used Date Smoking Tobacco: Never Assessed Sex and Gender Information Value Date Recorded Sex Assigned at Not on file Gender Identity Not on file Sexual Orientation Not on file documented as of this encounter Plan of Treatment Not on file documented as of this encounter Visit Diagnoses Not on filedocumented in this encounter Care Teams Hourly Associate Relationship Specialty Start Date End Date Pcp, No PCP - General 10/21/22 documented as of this encounter
--- OUTSIDE RECORDS SUMMARY | 2024-09-17 12:47 | XMS_ITS | Encounter Summary ---
Author Organization [facility] Address [address] [place] [address] Care Team Providers Care Chin Strap Cutter Name Role Phone Ivana Martinez HECTOR Primary Care Provider Reason for Visit * Reason Onset Date Comments Medication Refill 12/17/2022 Encounter Details Date Type Department Care Team (Late st Contact Info) Description 12/17/[address] [facility] Dermatology at [address] [place], [place] [address] Noel Brandon MD [address] [place] [phone] Medication Refill Social History Tobacco Use Types [...] documented as of this encounter Care Teams Chin Strap Cutter Relationship Specialty Start Date End Date Ivana Martinez APRN PCP - General Family Medicine 05/13/22 01/27/24 documented as of this encounter
--- OUTSIDE RECORDS SUMMARY | 2024-09-17 12:47 | XMS_ITS | Encounter Summary ---
Author Organization [facility] Address [address] [place] [address] Care Team Providers Care Aircraft Refueller Name Role Phone Ivana Martinez HECTOR Primary Care Provider Reason for Visit * Reason Onset Date Comments Medication Refill 06/25/2022 Encounter Details Date Type Department Care Team (Late st Contact Info) Description 06/25/2022 Refill [facility] Internal Medicine [address], 1st [place] [address] Zoya Clayton MD [address] [place] [phone] Medication Refill Social History Tobacco Use [...] documented as of this encounter Care Teams Aircraft Refueller Relationship Specialty Start Date End Date Ivana Martinez APRN PCP - General Family Medicine 05/13/22 01/27/24 documented as of this encounter
--- OUTSIDE RECORDS SUMMARY | 2024-09-17 12:47 | XMS_ITS | Encounter Summary ---
Author Organization [facility] Address [address] [place] [address] Care Team Providers Care Chain Maker Loom Control Name Role Phone Ivana Martinez HECTOR Primary Care Provider Reason for Visit * Reason Onset Date Comments Medication Refill 05/30/2022 Encounter Details Date Type Department Care Team (Late st Contact Info) Description 05/30/2022 Refill [facility] Internal Medicine [address], 1st [place] [address] Zoya Clayton MD [address] [place] [phone] Medication Refill Social History Tobacco Use [...] documented as of this encounter Care Teams Chain Maker Loom Control Relationship Specialty Start Date End Date Ivana Martinez APRN PCP - General Family Medicine 05/13/22 01/27/24 documented as of this encounter
--- OUTSIDE RECORDS SUMMARY | 2024-09-17 12:47 | XMS_ITS | Encounter Summary ---
Author Organization [facility] Address [address] [place] [address] Care Team Providers Care Risk Management Professional Name Role Phone Ivana Martinez APRN Primary Care Provider Reason for Visit * Reason Onset Date Comments Medication Refill 10/20/2022 Encounter Details Date Type Department Care Team (Late st Contact Info) Description 10/20/2022 Refill [facility] Family Medicine [place] [address] [facility] [address] [place] [address] Ivana Martinez APRN [address] [place] [phone] Medication Refill Social History Tobacco Use [...] documented as of this encounter Care Teams Risk Management Professional Relationship Specialty Start Date End Date Ivana Martinez APRN PCP - General Family Medicine 05/13/22 01/27/24 documented as of this encounter
--- OUTSIDE RECORDS SUMMARY | 2024-09-17 12:47 | XMS_ITS | Encounter Summary ---
Author Organization [facility] Address [address] [place] [address] Care Team Providers Care Content Development Specialist Name Role Phone Ivana Martinez HECTOR Primary Care Provider Reason for Visit * Reason Comments Medication Refill Encounter Details Date Type Department Care Team (Late st Contact Info) Description 06/22/2022 Refill [facility] Internal Medicine [address], 1[address] [place] [address] Zoya Clayton MD [facility] [address] [phone] Medication Refill Social History Tobacco [...] documented as of this encounter Care Teams Content Development Specialist Relationship Specialty Start Date End Date Ivana Martinez APRN PCP - General Family Medicine 05/13/22 01/27/24 documented as of this encounter
--- OUTSIDE RECORDS SUMMARY | 2024-09-17 12:47 | XMS_ITS | Encounter Summary ---
Author Organization [facility] Address [address] [place] [address] Care Team Providers Care Automotive Service Assistant Name Role Phone Pcp, No Primary Care Provider Unavailabl e Reason for Referral * Diagnostic Imaging (Routine) - Closed Specialty Diagnoses / Procedures Referred By Christian chatman Referred To Contact Diagnoses Microhematuria Procedures CT Urogram w w/o contrast w/3D Matthew Rodney MD [address] [place] [address] Referral ID Status Reason Start Date Expiration Date Visits Re quested Visits Authorized [id number] Closed 10/08/2022 12/11/2022 1 1 Reason for Visit * Diagnostic Imaging (Routine) - Closed Specialty Diagnoses / Procedures Referred By Christian chatman Referred To Contact Diagnoses Microhematuria Procedures CT Urogram w w/o contrast w/3D Matthew Rodney MD [address] [place] [phone] Referral ID Status Reason Start Date Expiration Date Visits Re quested Visits Authorized [id number] Closed 10/08/2022 12/11/2022 1 1 Encounter Details Date Type Department Care Team ([facility] st Contact Info) Description 10/21/2022 2:14 PM EDT Hospital Encounter Advanced [facility] [address] [place] [phone] Microhematuria Social History Tobacco Use Types Packs/Day [...] mL documented in this encounter Care Teams Automotive Service Assistant Relationship Specialty Start Date End Date Pcp, No PCP - General 10/21/22 documented as of this encounter
--- OUTSIDE RECORDS SUMMARY | 2024-09-17 12:47 | XMS_ITS | Patient Health Record ---
Author Organization [facility], Address [address] [place] [address] Reason For Referral No Information Plan Of Treatment No Information Insurance Providers Payer Name Payer Address Payer Phone Subscriber Number Group Number Insured Name Patient Relationship to Insured Coverage Start Date Coverage End Date Medicaid of [place] [address] [place] [address] [id number] Jay major Self - patient is the insured
--- OUTSIDE RECORDS SUMMARY | 2024-09-17 12:47 | XMS_ITS | Encounter Summary ---
Author Organization [facility] Address [address] [place] [phone] Care Team Providers Care Technical Professional Name Role Phone Andrew Martinezhanie HECTOR Primary Care Provider Reason for Visit * Reason Comments Medication Refill Encounter Details Date Type Department Care Team (Late st Contact Info) Description 06/30/2022 Refill [facility] Internal Medicine [address], 1[address] [place] [address] Souleymane Wilson DO [address] [place] [phone] Medication Refill Social History Tobacco Use Types [...] documented as of this encounter Care Teams Technical Professional Relationship Specialty Start Date End Date Ivana Martinez APRN PCP - General Family Medicine 05/13/22 01/27/24 documented as of this encounter
--- OUTSIDE RECORDS SUMMARY | 2024-09-17 12:47 | XMS_ITS | Encounter Summary ---
Author Organization [facility] Address [address] [place] [address] Care Team Providers Care Senior Sales Director Name Role Phone Ivana Martinez HECTOR Primary Care Provider Reason for Visit * Reason Onset Date Comments Medication Refill 08/28/2022 Encounter Details Date Type Department Care Team (Late st Contact Info) Description 08/28/2022 Refill [facility] Internal Medicine [address], 1st [place] [address] Zoya Clayton MD [address] [place] [phone] Medication Refill Social History Tobacco Use [...] as of this encounter Care Teams Senior Sales Director Relationship Specialty Start Date End Date Ivana Martinez APRN PCP - General Family Medicine 05/13/22 01/27/24 documented as of this encounter
--- OUTSIDE RECORDS SUMMARY | 2024-09-17 12:47 | XMS_ITS | Encounter Summary ---
Author Organization [facility] Address [address] [place] [address] Care Team Providers Care Career Development Specialist Name Role Phone Ivana Martinez APRN Primary Care Provider Encounter Details Date Type Department Care Team (Late st Contact Info) Description 09/03/2022 Orders Only [facility] Family Medicine [address] [place] [address] Ivana Martinez APRN [address] [place] [address] [address] [place] [address] Hypertension, unspecified type; Hypercalcemia; Elevated [...] 136 - 144 mmol/L 09/03/2022 12:57 PM [facility] Potassium 4.0 3.3 - 5.3 mmol/L 09/03/2022 12:57 PM [facility] Chloride 97(L) 98 - 107 mmol/L 09/03/2022 12:57 PM [facility] CO2 29 20 - 30 mmol/L 09/03/2022 12:57 PM [facility] Anion Gap 12 7 - 17 09/03/2022 12:57 PM [facility] Glucose 116(H) 70 - 100 mg/dL 09/03/2022 12:57 PM [facility] BUN 8 6 - 20 mg/dL 09/03/2022 12:57 PM [facility] Creatinine 0.86 0.40 - 1.30 mg/dL 09/03/2022 12:57 PM [facility] Calcium 9.5 8.8 - 10.2 mg/dL 09/03/2022 12:57 PM [facility] BUN/Creatinine Ratio 9.3 8.0 - 23.0 08/06 12:57 PM [facility] Total Protein 7.4 6.6 - 8.7 g/dL 09/03/2022 12:57 PM [facility] Albumin 5.0(H) 3.6 - 4.9 g/dL 09/03/2022 12:57 PM [facility] Total Bilirubin 1.0 <=1.2 mg/dL 09/03/19 12:57 PM [facility] Alkaline Phosphatase 70 9 - 122 U/L 12:57 PM [facility] Alanine Aminotransferase (ALT) 60(H) 9 - 59 U/L 09/03/2022 12:57 PM [facility] Comment:Calcium dobesilate c an cause artificially low ALT results at therapeutic concentrations Aspartate Aminotransferase (AST) 66(H) 10 - 35 U/L 09/03/2022 12:57 PM [facility] Globulin 2.4 2.3 - 3.5 g/dL 09/03/2022 12:57 PM [facility] A/G Ratio 2.1 1.0 - 2.2 09/03/2022 12:57 PM [facility] AST/ALT Ratio 1.1 See Comment 09/03/2022 12:57 PM [facility] Comment: Adult with mild elevations of [...] >60 >=60 mL/min/1.73 m2 09/03/2022 12:57 PM [facility] Comment:Estimated glomerular filtration rate (eGFR) was [...] 09/03/2022 9:58 AM EST us Ivana Martinez REVENUE ACCOUNTING MANAGER LAB BLOOD ORDERABLES Fi nal Result [address] [phone] * (ABNORMAL) CBC auto differential (09/03/2022 9:58 AM EST) WBC 6.2 4.0 - 11.0 x1000/??L 09/03/2022 12:01 PM [facility] RBC 5.11 4.00 - 6.00 M/??L 09/03/2022 12:01 PM [facility] Hemoglobin 16.5 13.2 - 17.1 g/dL 09/03/2022 12:01 PM [facility] Hematocrit 47.30 38.50 - 50.00 % 09/03/2022 12:01 PM [facility] MCV 92.6 80.0 - 100.0 fL 09/03/2022 12:01 PM [facility] MCH 32.3 27.0 - 33.0 pg 09/03/2022 12:01 PM [facility] MCHC 34.9 31.0 - 36.0 g/dL 09/03/2022 12:01 PM [facility] RDW-CV 12.7 11.0 - 15.0 % 09/03/2022 12:01 PM [facility] Platelets 278 150 - 420 x1000/??L 09/03/2022 12:01 PM [facility] MPV 10.2 8.0 - 12.0 fL 09/03/2022 12:01 PM [facility] Neutrophils 40.9 39.0 - 72.0 % 09/03/2022 12:01 PM [facility] Lymphocytes 39.7 17.0 - 50.0 % 09/03/2022 12:01 PM [facility] Monocytes 8.8 4.0 - 12.0 % 09/03/2022 12:01 [facility] Eosinophils 9.3(H) 0.0 - 5.0 % 09/03/2022 12:01 PM [facility] Basophil 1.1 0.0 - 1.4 % 09/03/2022 12:01 PM [facility] Immature Granulocytes 0.2 0.0 - 1.0 % 09/03/2022 12:01 PM [facility] nRBC 0.0 0.0 - 1.0 % 09/03/2022 12:01 PM [facility] ANC(Abs Neutrophil Count) 2.55 2.00 - 7.60 x 1000/??L 09/03/2022 12:01 PM [facility] Absolute Lymphocyte Count 2.48 0.60 - 3.70 x 1000/??L 09/03/2022 12:01 PM [facility] Monocyte Absolute Count 0.55 0.00 - 1.00 x 1000/??L 09/03/2022 12:01 PM [facility] Eosinophil Absolute Count 0.58 0.00 - 1.00 x 1000/??L 09/03/2022 12:01 PM [facility] Basophil Absolute Count 0.07 0.00 - 1.00 x 1000/??L 09/03/2022 12:01 PM [facility] Absolute Immature Granulocyte Count 0.01 0.00 - 0.30 x 1000/??L 09/03/2022 12:01 PM [facility] Absolute nRBC 0.00 0.00 - 1.00 x 1000/??L 09/03/2022 12:01 PM [facility] Blood Venipuncture / Unknown 09/03/2022 9:58 AM EST 09/03/2022 9:58 AM EST Ivana Martinez REVENUE ACCOUNTING MANAGER LAB BLOOD ORDERABLES Fi nal Result Performing Organization Address City/[facility]/ZIP Co de Phone Number [address] [phone] * Treponema pallidum (syphilis) antibody w/reflex (09/03/2022 9:58 AM EST) Treponema pallidum Ab Index <0.100 <0.9 Index 09/03/2022 1:38 PM [facility] Treponema pallidum Antibody Total, Serum Non-Reacti ve Non-Reacti ve 09/03/2022 1:38 PM [facility] Blood Venipuncture / Unknown 09/03/2022 9:58 AM EST 09/03/2022 9:58 AM EST Ivanaaldo Martinez REVENUE ACCOUNTING MANAGER LAB BLOOD ORDERABLES Fi nal Result Performing Organization Address [facility]/ZIP Co de Phone Number [address] [phone] * (ABNORMAL) Gamma GT (09/03/2022 9:58 AM EST) GGT 133(H) <48 U/L 09/03/2022 12:57 PM [facility] Blood Venipuncture / Unknown 09/03/2022 9:58 AM EST 09/03/2022 9:58 AM EST [facility] REVENUE ACCOUNTING MANAGER LAB BLOOD ORDERABLES Fi nal Result Performing Organization Address [facility] Phone [address] [phone] * (ABNORMAL) Vitamin D, 25-hydroxy (09/03/2022 9:58 AM EST) Vitamin X59-Xasnkms 12.1(L) 30.0 - 100.0 ng/mL 09/03/2022 1:55 PM [facility] Comment: Vitamin D Status: ??Results in ng/mL <10.0: ??Deficient 10.0 - 29.9: ??Insufficient 30.0 - 100.0: ??Sufficient >100: ??Toxic Reference ranges established by [employer]. Blood Venipuncture / Unknown 09/03/2022 9:58 AM EST 09/03/2022 9:58 AM EST [facility] REVENUE ACCOUNTING MANAGER LAB BLOOD ORDERABLES Fi nal Result Performing Organization Address [facility]/[address] [phone] * (ABNORMAL) Lipid panel (09/03/2022 9:58 AM EST) Cholesterol 201(H) See Comment mg/dL 09/03/2022 12:57 PM [facility] Comment: Total Cholesterol (mg/dL) ?Adults (>18 years) ? Children (<18 years) Desirable ?<200 ? <170 Borderline-High ?200-239 ?170-199 High ? >=240 ?>=200 ? HDL 76 >=40 mg/dL 09/03/2022 12:57 PM [facility] Triglycerides 157(H) See Comment mg/dL 09/03/2022 12:57 PM [facility] Comment: Triglycerides (mg/dL) ?Adults (>18 years) ? Children (<18 years) Desirable ?<150 ? Not Established Borderline-High ?150-199 ?Not Established High ? 200-499 ?Not Established ?? Chol/HDL Ratio 2.6 0.0 - 5.0 09/03/2022 12:57 PM [facility] LDL Calculated 98 See Comment mg/dL 09/03/2022 12:57 PM [facility] Comment: Effective 01/09/2022, LDL is calculated [...] APRN LAB BLOOD ORDERABLES Fi nal Result [address] [phone] * (ABNORMAL) Hemoglobin A1c (09/03/2022 9:58 AM EST) Hemoglobin A1c 5.7(H) 4.0 - 5.6 % 09/03/2022 12:34 PM [facility] Comment: Hemoglobin A1c values of 5.7-6.4 [...] Glucose mg/dL 117 mg/dL 09/03/2022 12:34 PM [facility] Comment: Estimated average glucose (eAG) is a calculated value designed to estimate ??the expected average blood glucose level throughout the day from a single ??measurement of ??glycated hemoglobin A1C (HbA1c) and follows the calculation proposed by the [employer] (Diabetes Care 31: 1-6, 2008). It may have less accuracy in children, women and patients with certain erythrocyte disorders. Blood Venipuncture / Unknown 09/03/2022 9:58 AM EST 09/03/2022 9:58 AM EST Ivana Martinez APRN LAB BLOOD ORDERABLES Fi nal Result [address] [phone] * TSH w/reflex to FT4 (BH GH LMW Q YH) (09/03/2022 9:58 AM EST) Thyroid Stimulating Hormone 3.940 See Comment ??IU/mL 09/03/2022 12:57 PM EST [facility] Comment: Male & Non- Females: 0.270-4.200 ??IU/mL 1st Trimester: 0.110-3.480 ??IU/mL 2nd Trimester: 0.320-3.850 ??IU/mL Blood Venipuncture / Unknown 09/03/2022 9:58 AM EST 09/03/2022 9:58 AM EST us Ivana Martinez APRN LAB BLOOD ORDERABLES Fi nal Result Performing Organization Address City/State/[facility] Co de Phone Number [address] [phone] documented in this encounter Visit Diagnoses Diagnosis Hypertension, unspecified type Hypercalcemia Elevated LFTs Other abnormal blood chemistry Dysuria documented in this encounter Additional Health Concerns Assessment Noted Time PHQ-9 Depression Total Score: 1 09/02/19 23 1:40 PM EST documented as of this encounter Care Teams Career Development Specialist Relationship Specialty Start Date End Date Ivana Martinez APRN PCP - General Family Medicine 05/13/22 01/27/24 documented as of this encounter
--- OUTSIDE RECORDS SUMMARY | 2024-09-17 12:47 | XMS_ITS | Encounter Summary ---
Author Organization [facility] Address [address] [place] [address] Care Team Providers Care Director [place] Name Role Phone Ivana Martinez HECTOR Primary Care Provider Reason for Visit * Reason Onset Date Comments Medication Refill 12/31/2022 Encounter Details Date Type Department Care Team (Late st Contact Info) Description 12/31/2022 Refill [facility] Internal Medicine [address], 1st [place] [address] Zoya Clayton MD [address] [place] [phone] Medication Refill Social History Tobacco Use [...] as of this encounter Care Teams Director [place] Relationship Specialty Start Date End Date Ivana Martinez APRN PCP - General Family Medicine 05/13/22 01/27/24 documented as of this encounter
--- OUTSIDE RECORDS SUMMARY | 2024-09-17 12:47 | XMS_ITS | Encounter Summary ---
Author Organization [facility] Address [address] [place] [address] Care Team Providers Care Aluminum Boats Assembler Name Role Phone Ivana Martinez APRN Primary Care Provider Encounter Details Date Type Department Care Team (Late st Contact Info) Description 09/03/2022 Transcribed Orders [place] [facility] [address] [place], [place] [address] Ivana Martinez APRN 477 [facility] [address] [place] [address] Dysuria (Primary Dx) Social History [...] Priority Date/Time Associated Diagnosis Comments URINE MICROSCOPIC ([facility] LMW [facility]) Routine 09/03/2022 10:54 AM EST Dysuria URINALYSIS-MACROSCOP IC W/REFLEX MICROSCOPIC Routine 09/03/2022 10:54 AM EST Dysuria C. TRACHOMATIS / N. GONORRHOEAE, NAAT ( GH L LMW YH) Routine 09/03/2022 10:54 AM EST Dysuria NEISSERIA GONORRHEA, NAAT (LAB ORDER ONLY) ([facility] L LMW YH) Routine 09/03/2022 10:54 AM EST Dysuria CHLAMYDIA TRACHOMATIS, NAAT (LAB ORDER ONLY) ([facility] L LMW YH) Routine 09/03/2022 10:54 AM EST Dysuria URINE CULTURE Routine 09/03/2022 10:54 AM EST Dysuria documented in this encounter Results * (ABNORMAL) Urine microscopic ([facility] LMW [facility]) (09/03/2022 10:54 AM EST) RBC/HPF, UA 6(H) 0 - 2 /HPF 09/03/2022 12:05 PM [facility] WBC/HPF, UA 1 0 - 5 /HPF 09/03/2022 12:05 PM [facility] Bacteria, UA Rare None-Rare /HPF 09/03/2022 12:05 PM [facility] Hyaline Casts, UA 1 0 - 3 /LPF 09/03/2022 12:05 PM [facility] Urine Collection / Unknown 09/03/2022 10:54 AM EST 09/03/2022 10:54 AM EST us Ivana Martinez MANAGER TAX URINE ORDERABLES Final Result [address] [phone] * Chlamydia trachomatis, NAAT ( GH LMW YH) (09/03/2022 10:54 AM EST) Chlamydia DNA Probe Negative Negative 09/04/2022 11:43 AM [facility] Comment:The Aptima Combo2 As say is not intended for the evaluation of suspected sexual abuse or for other medico-legal indications. Specimen Source Urine (Dirty Catch) for DNA Probe 09/04/2022 11:43 AM [facility] Culture URINE SPECIMEN / Unknown Collection / Unknown 09/03/2022 10:54 AM EST 09/03/2022 10:54 AM EST Ivana Martinez APRN MICROBIOLOGY - GENERAL ORDERABLES Final Result Performing Organization Address [facility]/ZIP Co de Phone Number [address] [phone] * Neisseria gonorrhoeae, NAAT ( GH L LMW YH) (09/03/2022 10:54 AM EST) Neisseria gonorrhoeae, DNA Probe Negative Negative 09/04/2022 11:43 AM [facility] Comment:The Aptima Combo2 As say is not intended for the evaluation of suspected sexual abuse or for other medico-legal indications. Specimen Source Urine (Dirty Catch) for DNA Probe 09/04/2022 11:43 AM [facility] Culture URINE SPECIMEN / Unknown Collection / Unknown 09/03/2022 10:54 AM EST 09/03/2022 10:54 AM EST Ivana Martinez APRN MICROBIOLOGY - GENERAL ORDERABLES Final Result Performing Organization Address [facility]/ZIP Co de Phone Number [address] [phone] * (ABNORMAL) Urinalysis-macroscopic w/reflex microscopic (09/03/2022 10:54 AM EST) Clarity, UA Clear Clear 09/03/2022 11:59 AM [facility] Color, UA Yellow Yellow, Colorless 09/03/2022 11:59 AM [facility] Specific Alexander, UA 1.015 1.005 - 1.030 09/03/2022 11:59 AM [facility] pH, UA 6.5 5.5 - 7.5 09/03/2022 11:59 AM [facility] Protein, UA Negative Negative, Trace 09/03/2022 11:59 AM [facility] Glucose, UA Negative Negative 09/03/2022 11:59 AM [facility] Ketones, UA Negative Negative 09/03/2022 11:59 AM [facility] Blood, UA 2+(A) Negative 09/03/2022 11:59 AM [facility] Bilirubin, UA Negative Negative 09/03/2022 11:59 AM [facility] Leukocytes, UA Negative Negative 09/03/2022 11:59 AM [facility] Nitrite, UA Negative Negative 09/03/2022 11:59 AM [facility] Urobilinogen, UA <2.0 <=2.0 mg/dL 09/03/2022 11:59 AM [facility] Urine Collection / Unknown 09/03/2022 10:54 AM EST 09/03/2022 10:54 AM EST Ivana Martinez MANAGER TAX URINE ORDERABLES Final Result Performing Organization Address City/[facility]/ZIP Co de Phone Number [address] [phone] * Urine culture (09/03/2022 10:54 AM EST) Urine Culture, Routine No Growth 09/04/2022 1:27 PM [facility] Culture URINE SPECIMEN OBTAINED BY CLEAN CATCH PROCEDURE / Unknown Collection / Unknown 09/03/2022 10:54 AM EST 09/03/2022 10:54 AM EST Ivana Martinez APRN MICROBIOLOGY - GENERAL ORDERABLES Final Result Performing Organization Address [facility]/ZIP Co de Phone Number [address] [phone] documented in this encounter Visit Diagnoses Diagnosis Dysuria- Primary documented in this encounter Additional Health Concerns Assessment Noted Time PHQ-9 Depression Total Score: 1 09/02/19 23 1:40 PM EST documented as of this encounter Care Teams Aluminum Boats Assembler Relationship Specialty Start Date End Date Ivana Martinez APRN PCP - General Family Medicine 05/13/22 01/27/24 documented as of this encounter
--- OUTSIDE RECORDS SUMMARY | 2024-09-17 12:47 | XMS_ITS | Encounter Summary ---
Author Organization [facility] Address [address] [place] [address] Care Team Providers Care Engineer Design And Construction Name Role Phone Ivana Martinez APRN Primary Care Provider Encounter Details Date Type Department Care Team (Late st Contact Info) Description 05/13/2022 Transcribed Orders [place] [facility] - [address] [place], [place] [address] Ivana Martinez APRN 477 [facility] [address] [place] [address] Hypocalcemia (Primary Dx); Hypertension, unspecified [...] See Comment ng/dL 05/13/2022 2:16 PM EDT [facility] Comment: For patients taking levothyroxine, the [...] ORDERABLES Fi nal Result Performing Organization Address [facility]/State/[facility] Co de Phone Number [address] [phone] * PTH, intact without calcium (05/13/2022 10:46 AM EDT) Parathyroid Hormone, Intact 35.0 15.0 - 65.0 pg/mL 05/13/2022 12:49 PM EDT [facility] Blood Venipuncture / Unknown 05/13/2022 10:46 AM EDT 05/13/2022 10:46 AM EDT Ivanabhavin Martinez POULTRY CUTTER LAB BLOOD ORDERABLES Fi nal Result [facility] [address] [place] [address], [facility] [phone] * (ABNORMAL) Comprehensive metabolic panel (05/13/2022 10:46 AM EDT) Sodium 138 136 - 144 mmol/L 05/13/2022 1:07 PM [facility] Potassium 3.8 3.3 - 5.3 mmol/L 05/13/2022 1:07 PM [facility] Chloride 98 98 - 107 mmol/L 05/13/2022 1:07 PM [facility] CO2 28 20 - 30 mmol/L 05/13/2022 1:07 PM [facility] Anion Gap 12 7 - 17 05/13/2022 1:07 PM [facility] Glucose 105(H) 70 - 100 mg/dL 05/13/2022 1:07 PM [facility] BUN 6 6 - 20 mg/dL 05/13/2022 1:07 PM [facility] Creatinine 0.78 0.40 - 1.30 mg/dL 05/13/2022 1:07 PM [facility] Calcium 9.6 8.8 - 10.2 mg/dL 05/13/2022 1:07 PM [facility] BUN/Creatinine Ratio 7.7(L) 8.0 - 23.0 05/04 1:07 PM [facility] Total Protein 7.5 6.6 - 8.7 g/dL 05/13/2022 1:07 PM [facility] Albumin 5.2(H) 3.6 - 4.9 g/dL 05/13/2022 1:07 PM [facility] Total Bilirubin 0.5 <=1.2 mg/dL 05/13/20 1:07 PM [facility] Alkaline Phosphatase 81 9 - 122 U/L 05/2022 1:07 PM [facility] Alanine Aminotransferase (ALT) 45 9 - 59 U/L 05/13/2022 1:07 PM [facility] Comment:Calcium dobesilate c an cause artificially low ALT results at therapeutic concentrations Aspartate Aminotransferase (AST) 48(H) 10 - 35 U/L 05/13/2022 1:07 PM EDT [facility] Globulin 2.3 2.3 - 3.5 g/dL 05/13/2022 1:07 PM [facility] A/G Ratio 2.3(H) 1.0 - 2.2 05/13/2022 1:07 PM [facility] AST/ALT Ratio 1.1 See Comment 05/13/2022 1:07 PM [facility] Comment: Adult with mild elevations of transaminases (< 5 times upper limit of normal): AST/ALT > 2 suggests alcoholic liver injury AST/ALT < 1 suggests non-alcoholic fatty liver disease (NAFLD) [place] (healthy): AST/ALT can be > 3 on day 0 AST/ALT < 2 by day 5 The thresholds provided focus on the most common etiologies of elevated serum transaminase levels and the associated alteration of AST:ALT ratios; they are not intended to exclude other feasible and clinically appropriate possibilities eGFR (Creatinine) >60 >=60 mL/min/1.73 m2 05/13/2022 1:07 PM [facility] Comment:Estimated glomerular filtration rate (eGFR) was calculated [...] 05/13/2022 10:46 AM EDT us Ivana Martinez POULTRY CUTTER LAB BLOOD ORDERABLES Fi nal Result [address] [phone] * (ABNORMAL) CBC auto differential (05/13/2022 10:46 AM EDT) WBC 5.5 4.0 - 11.0 x1000/??L 05/13/2022 12:09 PM EDT [facility] RBC 5.19 4.00 - 6.00 M/??L 05/13/2022 12:09 PM [facility] Hemoglobin 16.6 13.2 - 17.1 g/dL 05/13/2022 12:09 PM [facility] Hematocrit 45.70 38.50 - 50.00 % 05/13/2022 12:09 PM [facility] MCV 88.1 80.0 - 100.0 fL 05/13/2022 12:09 PM [facility] MCH 32.0 27.0 - 33.0 pg 05/13/2022 12:09 PM [facility] MCHC 36.3(H) 31.0 - 36.0 g/dL 05/13/2022 12:09 PM [facility] RDW-CV 12.7 11.0 - 15.0 % 05/13/2022 12:09 PM [facility] Platelets 323 150 - 420 x1000/??L 05/13/2022 12:09 PM [facility] MPV 9.5 8.0 - 12.0 fL 05/13/2022 12:09 PM [facility] Neutrophils 36.5(L) 39.0 - 72.0 % 05/13/2022 12:09 PM [facility] Lymphocytes 42.0 17.0 - 50.0 % 05/13/2022 12:09 PM [facility] Monocytes 9.2 4.0 - 12.0 % 05/13/2022 12:09 PM [facility] Eosinophils 11.2(H) 0.0 - 5.0 % 05/13/2022 12:09 PM [facility] Basophil 1.1 0.0 - 1.4 % 05/13/2022 12:09 PM [facility] Immature Granulocytes 0.0 0.0 - 1.0 % 05/13/2022 12:09 PM [facility] nRBC 0.0 0.0 - 1.0 % 05/13/2022 12:09 PM [facility] ANC(Abs Neutrophil Count) 1.99(L) 2.00 - 7.60 x 1000/??L 05/13/2022 12:09 PM [facility] Absolute Lymphocyte Count 2.29 0.60 - 3.70 x 1000/??L 05/13/2022 12:09 PM [facility] Monocyte Absolute Count 0.50 0.00 - 1.00 x 1000/??L 05/13/2022 12:09 PM EDT [facility] Eosinophil Absolute Count 0.61 0.00 - 1.00 x 1000/??L 05/13/2022 12:09 PM EDT [facility] Basophil Absolute Count 0.06 0.00 - 1.00 x 1000/??L 05/13/2022 12:09 PM T [facility] Absolute Immature Granulocyte Count 0.00 0.00 - 0.30 x 1000/??L 05/13/2022 12:09 PM T [facility] Absolute nRBC 0.00 0.00 - 1.00 x 1000/??L 05/13/2022 12:09 PM T [facility] Blood Venipuncture / Unknown 05/13/2022 10:46 AM EDT 05/13/2022 10:46 AM EDT Ivanabhavin Martinez POULTRY CUTTER LAB BLOOD ORDERABLES Fi nal Result [address] [phone] * (ABNORMAL) Thyroid antibody panel ([facility]) (05/13/2022 10:46 AM EDT) Pathologist [facility] [place] Thyroid Peroxidase Ab 163(H) 0 - 99 IU/mL 05/15/2022 1:01 PM EDT [facility] Thyroglobulin Ab <10.0 0 - 125 IU/mL 05/15/2022 1:01 PM EDT [facility] Blood Venipuncture / Unknown 05/13/2022 10:46 AM EDT 05/13/2022 10:46 AM EDT Ivanabhavin Martinez POULTRY CUTTER LAB BLOOD ORDERABLES Fi nal Result [address] [phone] * (ABNORMAL) THYROID PEROXIDASE ANTIBODY (05/13/2022 10:46 AM EDT) Thyroid Peroxidase Ab 163(H) 0 - 99 IU/mL 05/15/2022 1:01 PM EDT [facility] Blood Venipuncture / Unknown 05/13/2022 10:46 AM EDT 05/13/2022 10:46 AM EDT Ivana Martinez POULTRY CUTTER LAB BLOOD ORDERABLES Fi nal Result Performing Organization Address City/State/[facility] Co de Phone Number [address] [phone] * TESTOSTERONE, TOTAL (BH GH L LMW YH) (05/13/2022 10:46 AM EDT) Pathologist [facility] [place] Testosterone, Total 302 229 - 902 ng/dL 05/13/2022 1:18 PM EDT [facility] Comment: The following testosterone reference ranges [...] [place]. J Clin Endocrinol Metab. 2017 Nov 1;102(4):6677-4810. Blood Venipuncture / Unknown 05/13/2022 10:46 AM EDT 05/13/2022 10:46 AM EDT Ivanabhavin Martinez POULTRY CUTTER LAB BLOOD ORDERABLES Fi nal Result [address] [phone] * (ABNORMAL) Gamma GT (05/13/2022 10:46 AM EDT) GGT 92(H) <48 U/L 05/13/2022 12:53 PM EDT [facility] Blood Venipuncture / Unknown 05/13/2022 10:46 AM EDT 05/13/2022 10:46 AM EDT Ivana Apos Therapylilibeth POULTRY CUTTER LAB BLOOD ORDERABLES Fi nal Result Performing Organization Address [facility] de Phone Number [address] [phone] * (ABNORMAL) Vitamin D, 25-hydroxy (05/13/2022 10:46 AM EDT) Vitamin H08-Ygervzf 16.9(L) 30.0 - 100.0 ng/mL 05/13/2022 1:47 PM EDT [facility] Comment: Vitamin D Status: ??Results in ng/mL <10.0: ??Deficient 10.0 - 29.9: ??Insufficient 30.0 - 100.0: ??Sufficient >100: ??Toxic Reference ranges established by [employer]. Blood Venipuncture / Unknown 05/13/2022 10:46 AM EDT 05/13/2022 10:46 AM EDT Ivana Martinez POULTRY CUTTER LAB BLOOD ORDERABLES Fi nal Result Performing Organization Address [facility]/ZIP La de Phone Number [address] [phone] * Hepatitis C Ab with reflex to HCV PCR (05/13/2022 10:46 AM EDT) Hepatitis C Ab Initial Result 0.03 S/CO 05/13/2022 1:44 PM EDT [facility] Hepatitis C Ab Interpretation Non-React lilo Non-React lilo 05/13/2022 1:44 PM EDT [facility] Blood Venipuncture / Unknown 05/13/2022 10:46 AM EDT 05/13/2022 10:46 AM EDT [facility] POULTRY CUTTER LAB BLOOD ORDERABLES Fi nal Result Performing Organization Address [facility] de Phone [address] [phone] * (ABNORMAL) Lipid panel (05/13/2022 10:46 AM EDT) [facility] Cholesterol 185 See Comment mg/dL 05/13/2022 1:07 PM EDT [facility] Comment: Total Cholesterol (mg/dL) ?Adults (>18 years) ? Children (<18 years) Desirable ?<200 ? <170 Borderline-High ?200-239 ?170-199 High ? >=240 ?>=200 ? HDL 63 >=40 mg/dL 05/13/2022 1:07 PM [facility] Triglycerides 268(H) See Comment mg/dL 05/13/2022 1:07 PM [facility] Comment: Triglycerides (mg/dL) ?Adults (>18 years) ? Children (<18 years) Desirable ?<150 ? Not Established Borderline-High ?150-199 ?Not Established High ? 200-499 ?Not Established ?? Chol/HDL Ratio 2.9 0.0 - 5.0 05/13/2022 1:07 PM [facility] LDL Calculated 79 See Comment mg/dL 05/13/2022 1:07 PM [facility] Comment: Effective 01/09/2022, LDL is calculated using [...] 05/13/2022 10:46 AM EDT us Ivana Martinez POULTRY CUTTER LAB BLOOD ORDERABLES Fi nal Result [address] [phone] * (ABNORMAL) Vitamin B12 (05/13/2022 10:46 AM EDT) Vitamin B12 168(L) 232 - 1,245 pg/mL 05/13/2022 1:40 PM EDT [facility] Blood Venipuncture / Unknown 05/13/2022 10:46 AM EDT 05/13/2022 10:46 AM EDT Ivana Martinez POULTRY CUTTER LAB BLOOD ORDERABLES Fi nal Result Performing Organization Address [facility]/State/[place] [address], [facility] [phone] * (ABNORMAL) Hemoglobin A1c (05/13/2022 10:46 AM EDT) Hemoglobin A1c 5.7(H) 4.0 - 5.6 % 05/13/2022 1:42 PM EDT [facility] Comment: Hemoglobin A1c values of [...] mg/dL 117 mg/dL 05/13/2022 1:42 PM EDT [facility] Comment: Estimated average glucose (eAG) is a calculated value designed to estimate ??the expected average blood glucose level throughout the day from a single ??measurement of ??glycated hemoglobin A1C (HbA1c) and follows the calculation proposed by the [place] [employer] (Diabetes Care 31: 1-6, 2008). It may have less accuracy in children, women and patients with certain erythrocyte disorders. Blood Venipuncture / Unknown 05/13/2022 10:46 AM EDT 05/13/2022 10:46 AM EDT Ivanaaldo Martinez POULTRY CUTTER LAB BLOOD ORDERABLES Fi nal Result [address] [phone] * (ABNORMAL) TSH w/reflex to FT4 (BH GH LMW Q YH) (05/13/2022 10:46 AM EDT) Thyroid Stimulating Hormone 4.470(H) See Comment ??IU/mL 05/13/2022 1:07 PM EDT [facility] Comment: Male & Non- Females: 0.270-4.200 ??IU/mL 1st Trimester: 0.110-3.480 ??IU/mL 2nd Trimester: 0.320-3.850 ??IU/mL Blood Venipuncture / Unknown 05/13/2022 10:46 AM EDT 05/13/2022 10:46 AM EDT Ivana Martinez APRN LAB BLOOD ORDERABLES Fi nal Result Performing Organization Address City/[facility] Co de Phone Number [address] [phone] documented in this encounter Visit Diagnoses Diagnosis [...] as of this encounter Care Teams Engineer Design And Construction Relationship Specialty Start Date End Date Ivana Martinez APRN PCP - General Family Medicine 05/13/22 01/27/24 documented as of this encounter
== END 2024-09-17 12:51 | disposition home or self-care (01) ==
PROVIDERS: PCP Internal Medicine; Visit Provider Physician Assistant Medical
DX: Z09 Encounter for follow-up examination after completed treatment for conditions other than malignant neoplasm (principal); F10.10 Alcohol abuse, uncomplicated; M17.11 Unilateral primary osteoarthritis, right knee; M23.91 Unspecified internal derangement of right knee; F17.200 Nicotine dependence, unspecified, uncomplicated; B35.4 Tinea corporis; E03.9 Hypothyroidism, unspecified; I10 Essential (primary) hypertension; R17 Unspecified jaundice; E66.3 Overweight

== ENCOUNTER → 2024-09-17 12:21 | Outpatient (BNVA) | payer OTHER, SELFPAY | PROVIDERS: PCP Internal Medicine; Visit Provider Physician Assistant Medical | DX: Z09 Encounter for follow-up examination after completed treatment for conditions other than malignant neoplasm (principal); F10.10 Alcohol abuse, uncomplicated; M17.11 Unilateral primary osteoarthritis, right knee; M23.91 Unspecified internal derangement of right knee; B35.4 Tinea corporis; E03.9 Hypothyroidism, unspecified; R17 Unspecified jaundice; I10 Essential (primary) hypertension; E66.3 Overweight; F17.200 Nicotine dependence, unspecified, uncomplicated; Z71.6 Tobacco abuse counseling | CPT/HCPCS: 96127; 99212 ==

== ENCOUNTER 2024-09-22 10:49 | Outpatient (REF) | payer OTHER, SELFPAY ==
[2024-09-22 11:03] LABS: MANUAL DIFF FLAG NO
--- OUTSIDE RECORDS SUMMARY | 2024-09-22 11:34 | XMS_ITS | Encounter Summary ---
Author Organization [facility] Address [address] [place] [phone] Care Team Providers Care Support Team Assoc Name Role Phone JohannaAndrew mcelroyhanie HECTOR Primary Care Provider Encounter Details Date Type Department Care Team (Late st Contact Info) Description 11/19/2021 Scanned Document [facility] Internal Medicine [address] [place], [place] [phone] Provider, historical . Social History Tobacco Use [...] RIGHT AP INTERNA L AP EXTERNAL AXILLARY ([facility] Y) Routine 11/17/2021 documented in this encounter [...] documented as of this encounter Care Teams Support Team Assoc Relationship Specialty Start Date End Date Ivana Martinez APRN PCP - General Family Medicine 05/13/22 01/27/24 documented as of this encounter
--- OUTSIDE RECORDS SUMMARY | 2024-09-22 11:34 | XMS_ITS | Encounter Summary ---
Author Organization [facility] Address [address] [place] [address] Care Team Providers Care Compliance Specialist Name Role Phone Ivana Martinez HECTOR Primary Care Provider Reason for Visit * Reason Onset Date Comments Medication Refill 02/26/2022 Encounter Details Date Type Department Care Team (Late st Contact Info) Description 02/26/2022 Refill [facility] Internal Medicine [address] [place] [address] Zoya Clayton MD [address] [place] [phone] Medication Refill Social History Tobacco Use [...] documented as of this encounter Care Teams Compliance Specialist Relationship Specialty Start Date End Date Ivana Martinez APRN PCP - General Family Medicine 05/13/22 01/27/24 documented as of this encounter
--- OUTSIDE RECORDS SUMMARY | 2024-09-22 11:34 | XMS_ITS | Encounter Summary ---
Author Organization [facility] Address [address] [place] [address] Care Team Providers Care Cooker Sulfate Name Role Phone Unavailable Primary Care Provider Unavailabl e Encounter Details Date Type Department Care Team (Late st Contact Info) Description 08/19/2024 Lab Requisition [facility] Lab [address] [place] [address] Denzel Longo MD [address] [place] [address] [place] [phone] Local infection of [...] after 4 Weeks 09/16/2024 1:07 PM EST [facility] Skin 08/19/2024 08/19/2024 5:1 5 PM EST us Denzel Longo MD LAB MICROBIOLOGY - G ENERAL ORDERABLES Final Result [facility] [address] [place] [address], documented in this encounter Visit Diagnoses Diagnosis Local infection of the skin and subcutaneous tissue, unspecified documented in this encounter
--- OUTSIDE RECORDS SUMMARY | 2024-09-22 11:34 | XMS_ITS | Encounter Summary ---
Author Organization [facility] Address [address] [place] [address] Care Team Providers Care Government Affairs Researcher Name Role Phone Ivana Martinez APRN Primary Care Provider Encounter Details Date Type Department Care Team (Late st Contact Info) Description 05/05/2019 Scanned Document Scarlet Espinosa M.D. [address] [facility] [address] [place] [address] Jeffy Espinosa MD [address] [place] [phone] Social History Tobacco Use Types Packs/Day [...] documented as of this encounter Care Teams Government Affairs Researcher Relationship Specialty Start Date End Date Ivana Martinez APRN PCP - General Family Medicine 05/13/22 01/27/24 documented as of this encounter
--- OUTSIDE RECORDS SUMMARY | 2024-09-22 11:34 | XMS_ITS | Encounter Summary ---
Author Organization [facility] Address [address] [place] [address] Care Team Providers Care Marine Mechanic Name Role Phone Ivana Martinez HECTOR Primary Care Provider Reason for Visit * Reason Comments Medication Refill Encounter Details Date Type Department Care Team (Late st Contact Info) Description 12/30/2021 Refill [facility] G[facility] [address] [facility] [address] [place], [place] [id number] Matthew Huynh MD [address] [place] [address] Medication Refill Social History Tobacco [...] documented as of this encounter Care Teams Marine Mechanic Relationship Specialty Start Date End Date Ivana Martinez APRN PCP - General Family Medicine 05/13/22 01/27/24 documented as of this encounter
--- OUTSIDE RECORDS SUMMARY | 2024-09-22 11:34 | XMS_ITS | Encounter Summary ---
Author Organization [facility] Address [address] [place] [address] Care Team Providers Care Land Leases And Rentals Manager Name Role Phone Ivana Martinez HECTOR Primary Care Provider Reason for Visit * Reason Onset Date Comments Medication Refill 10/29/2021 Encounter Details Date Type Department Care Team (Late st Contact Info) Description 10/29/2021 Refill [facility] Internal Medicine [address] [place] [address] Zoya Clayton MD [address] [place] [phone] Medication Refill Social History Tobacco Use [...] documented as of this encounter Care Teams Land Leases And Rentals Manager Relationship Specialty Start Date End Date Ivana Martinez APRN PCP - General Family Medicine 05/13/22 01/27/24 documented as of this encounter
--- OUTSIDE RECORDS SUMMARY | 2024-09-22 11:34 | XMS_ITS | Encounter Summary ---
Author Organization [facility] Address [address] [place] [address] Care Team Providers Care Oil Well Logging Engineer Name Role Phone Ivana Martinez APRN Primary Care Provider Encounter Details Date Type Department Care Team (Late st Contact Info) Description 05/06/2019 Scanned Document Scarlet Espinosa M.D. [address] [facility] [address] [place] [address] Jeffy Espinosa MD [address] [place] [phone] Social History Tobacco Use Types Packs/Day [...] documented as of this encounter Care Teams Oil Well Logging Engineer Relationship Specialty Start Date End Date Ivana Martinez APRN PCP - General Family Medicine 05/13/22 01/27/24 documented as of this encounter
--- OUTSIDE RECORDS SUMMARY | 2024-09-22 11:34 | XMS_ITS | Clinical Summary ---
Author Organization [facility] Address [address] [place] [address] Care Team Providers Care Insurance Verifier Name Role Phone Pcp, No Primary Care [...] age to complete this topic Care Teams Insurance Verifier Relationship Specialty Start Date End Date Pcp, No PCP - General 10/21/22
--- OUTSIDE RECORDS SUMMARY | 2024-09-22 11:34 | XMS_ITS | Encounter Summary ---
Author Organization [facility] Address [address] [place] [address] Care Team Providers Care Logging Tractor Operator Name Role Phone Ivana Martinez HECTOR Primary Care Provider Encounter Details Date Type Department Care Team (Late st Contact Info) Description 09/26/2021 Scanned Document [facility] Internal Medicine [address], 1st [place], [place] [phone] Zoya Clayton MD [facility] [address] [phone] Social History Tobacco Use Types [...] documented as of this encounter Care Teams Logging Tractor Operator Relationship Specialty Start Date End Date Ivana Martinez APRN PCP - General Family Medicine 05/13/22 01/27/24 documented as of this encounter
--- OUTSIDE RECORDS SUMMARY | 2024-09-22 11:34 | XMS_ITS | Encounter Summary ---
Author Organization [facility] Address [address] [place] [address] Care Team Providers Care Patternmaker Grader Name Role Phone Ivana Martinez HECTOR Primary Care Provider Reason for Visit * Reason Onset Date Comments Medication Refill 05/02/2022 Encounter Details Date Type Department Care Team (Late st Contact Info) Description 05/02/2022 Refill [facility] Internal Medicine [address], 1st [place] [address] Zoya Clayton MD [address] [place] [phone] Medication Refill Social History Tobacco Use [...] documented as of this encounter Care Teams Patternmaker Grader Relationship Specialty Start Date End Date Ivana Martinez APRN PCP - General Family Medicine 05/13/22 01/27/24 documented as of this encounter
--- OUTSIDE RECORDS SUMMARY | 2024-09-22 11:34 | XMS_ITS | Encounter Summary ---
Author Organization [facility] Address [address] [place] [address] Care Team Providers Care Health Care Coach Name Role Phone Ivana Martinez HECTOR Primary Care Provider Reason for Visit * Reason Onset Date Comments Medication Refill 07/12/2021 Encounter Details Date Type Department Care Team (Late st Contact Info) Description 07/12/2021 Refill [facility] Internal Medicine [address], [address]st [place] [address] Zoya Clayton MD [address] [place] [phone] Medication Refill Social History Tobacco Use [...] as of this encounter Care Teams Health Care Coach Relationship Specialty Start Date End Date Ivana Martinez APRN PCP - General Family Medicine 05/13/22 01/27/24 documented as of this encounter
--- OUTSIDE RECORDS SUMMARY | 2024-09-22 11:34 | XMS_ITS | Encounter Summary ---
Author Organization [facility] Address [address] [place] [address] Care Team Providers Care Angledozer Operator Name Role Phone Ivana Martinez HECTOR Primary Care Provider Encounter Details Date Type Department Care Team (Late st Contact Info) Description 11/08/2020 Scanned Document [address] [facility] [address] [place] [id number] External, Provider Social History Tobacco Use Types [...] documented as of this encounter Care Teams Angledozer Operator Relationship Specialty Start Date End Date Ivana Martinez APRN PCP - General Family Medicine 05/13/22 01/27/24 documented as of this encounter
--- OUTSIDE RECORDS SUMMARY | 2024-09-22 11:34 | XMS_ITS | Encounter Summary ---
Author Organization [facility] Address [address] [place] [address] Care Team Providers Care Geophysical Computer Name Role Phone Andrew Martinezhanie HECTOR Primary Care Provider Encounter Details Date Type Department Care Team (Late st Contact Info) Description 09/26/2021 Scanned Document [facility] Internal Medicine [address], 1st Floor [place], [place] [address] External, Provider Social History Tobacco Use Types [...] documented as of this encounter Care Teams Geophysical Computer Relationship Specialty Start Date End Date Ivana Martinez APRN PCP - General Family Medicine 05/13/22 01/27/24 documented as of this encounter
--- OUTSIDE RECORDS SUMMARY | 2024-09-22 11:34 | XMS_ITS | Encounter Summary ---
Author Organization [facility] Address [address] [place] [address] Care Team Providers Care Dispatcher Relay Name Role Phone Ivana Martinez HECTOR Primary Care Provider Encounter Details Date Type Department Care Team (Late st Contact Info) Description 08/22/2021 Scanned Document [facility] Internal Medicine [address], 1st [address] [place], [place] [address] Zoya Clayton MD [address] [phone] Social History Tobacco Use Types [...] documented as of this encounter Care Teams Dispatcher Relay Relationship Specialty Start Date End Date Ivana Martinez APRN PCP - General Family Medicine 05/13/22 01/27/24 documented as of this encounter
--- OUTSIDE RECORDS SUMMARY | 2024-09-22 11:34 | XMS_ITS | Clinical Summary ---
Author Organization [address] [facility] Address [address] [place] [address] Phone Care Team Providers Care Pbx Operator Name Role Phone Unavailable Primary Care Provider Unavailabl e Encounters Date Type Department Care Team Description 08/19/2024 Lab Requisition [facility] - Main Lab [address] [facility] [place] [address] Denzel Longo MD Local infection [...] patient's age to complete this topic Meningococcal B Vacine Aged Out No lo nger eligible based on patient's age to complete [...] after 4 Weeks 09/16/2024 1:07 PM EST [facility] Skin 08/19/2024 08/19/2024 5:1 5 PM EST Denzel Longo MD LAB MICROBIOLOGY - G ENERAL ORDERABLES Final Result [facility] [address] [place] [address], [place] [phone] from Last 3 Months Insurance MEDICAID - [id number]
--- OUTSIDE RECORDS SUMMARY | 2024-09-22 11:34 | XMS_ITS | Encounter Summary ---
Author Organization [facility] Address [address] [place] [address] Care Team Providers Care Athletic Equipment Custodian Name Role Phone Ivana Martinez HECTOR Primary Care Provider Reason for Visit * Reason Comments Medication Refill Encounter Details Date Type Department Care Team (Late st Contact Info) Description 04/01/2022 Refill [facility] Internal Medicine [address], 1st [place] [address] Zoya Clayton MD [facility] [address] [phone] Medication Refill Social History Tobacco [...] documented as of this encounter Care Teams Athletic Equipment Custodian Relationship Specialty Start Date End Date Ivana Martinez APRN PCP - General Family Medicine 05/13/22 01/27/24 documented as of this encounter
--- OUTSIDE RECORDS SUMMARY | 2024-09-22 11:34 | XMS_ITS | Encounter Summary ---
Author Organization [facility] Address [address] [place] [address] Care Team Providers Care System Administration Manager Name Role Phone Ivana Martinez HECTOR Primary Care Provider Encounter Details Date Type Department Care Team (Late st Contact Info) Description 10/12/2021 Scanned Document [facility] [address] [place] [address] Matthew Huynh MD [address] [place] [address] Social History Tobacco Use Types [...] documented as of this encounter Care Teams System Administration Manager Relationship Specialty Start Date End Date Ivana Martinez APRN PCP - General Family Medicine 05/13/22 01/27/24 documented as of this encounter
--- OUTSIDE RECORDS SUMMARY | 2024-09-22 11:34 | XMS_ITS | Encounter Summary ---
Author Organization [facility] Address [address] [place] [address] Care Team Providers Care Plate Mounter Name Role Phone Ivana Martinez APRN Primary Care Provider Encounter Details Date Type Department Care Team (Late st Contact Info) Description 02/26/2023 Orders Only [facility] Family Medicine [address] [place] [address] Ivana Martinez APRN [address] [place] [address] [address] [place] [address] Hypertension, unspecified type; Hypothyroidism, unspecified [...] 4.0 - 11.0 x1000/??L 02/26/2023 3:06 PM [facility] RBC 5.06 4.00 - 6.00 M/??L 02/26/2023 3:06 PM [facility] Hemoglobin 16.4 13.2 - 17.1 g/dL 02/26/2023 3:06 PM [facility] Hematocrit 44.90 38.50 - 50.00 % 02/26/2023 3:06 PM [facility] MCV 88.7 80.0 - 100.0 fL 02/26/2023 3:06 PM [facility] MCH 32.4 27.0 - 33.0 pg 02/26/2023 3:06 PM [facility] MCHC 36.5(H) 31.0 - 36.0 g/dL 02/26/2023 3:06 PM [facility] RDW-CV 12.6 11.0 - 15.0 % 02/26/2023 3:06 PM [facility] Platelets 331 150 - 420 x1000/??L 02/26/2023 3:06 PM [facility] MPV 9.8 8.0 - 12.0 fL 02/26/2023 3:06 PM [facility] Neutrophils 42.8 39.0 - 72.0 % 02/26/2023 3:06 PM [facility] Lymphocytes 37.2 17.0 - 50.0 % 02/26/2023 3:06 PM [facility] Monocytes 9.5 4.0 - 12.0 % 02/26/2023 3:06 PM [facility] Eosinophils 8.8(H) 0.0 - 5.0 % 02/26/2023 3:06 PM [facility] Basophil 1.3 0.0 - 1.4 % 02/26/2023 3:06 PM [facility] Immature Granulocytes 0.4 0.0 - 1.0 % 02/26/2023 3:06 PM EDT nRBC 0.0 0.0 - 1.0 % 02/26/2023 3:06 PM EDT ANC(Abs Neutrophil Count) 2.30 2.00 - 7.60 x 1000/??L 02/26/2023 3:06 PM [facility] Absolute Lymphocyte Count 2.00 0.60 - 3.70 x 1000/??L 02/26/2023 3:06 PM EDT Monocyte Absolute Count 0.51 0.00 - 1.00 x 1000/??L [facility] Count 0.47 0.00 - 1.00 x 1000/??L 02/26/2023 3:06 PM [facility] Basophil Absolute Count 0.07 0.00 - 1.00 x 1000/??L 02/26/2023 3:06 PM [facility] Absolute Immature Granulocyte Count 0.02 0.00 - 0.30 x 1000/??L 02/26/2023 3:06 PM [facility] Absolute nRBC 0.00 0.00 - 1.00 x 1000/??L 02/26/2023 3:06 PM [facility] Blood Venipuncture / Unknown 02/26/2023 11:12 AM EDT 02/26/2023 11:12 AM EDT us Ivana Martinez SEXUAL ASSAULT NURSE LAB BLOOD ORDERABLES Fi nal Result [address] [phone] * (ABNORMAL) Comprehensive metabolic panel (02/26/2023 11:12 AM EDT) Sodium 140 136 - 144 mmol/L 02/26/2023 3:26 PM EDT Potassium 4.1 3.3 - 5.3 mmol/L 02/26/2023 3:26 PM T Chloride 99 98 - 107 mmol/L 02/26/2023 3:26 PM EDT CO2 30 20 - 30 mmol/L 02/26/2023 3:26 PM [facility] Anion Gap 11 7 - 17 02/26/2023 3:26 PM [facility] Glucose 96 70 - 100 mg/dL 02/26/2023 3:26 PM [facility] BUN 8 6 - 20 mg/dL 02/26/2023 3:26 PM [facility] Creatinine 0.76 0.40 - 1.30 mg/dL 02/26/2023 3:26 PM [facility] Calcium 10.0 8.8 - 10.2 mg/dL 02/26/2023 3:26 PM [facility] BUN/Creatinine Ratio 10.5 8.0 - 23.0 02/26/2023 3:26 PM [facility] Total Protein 7.7 6.6 - 8.7 g/dL 023 3:26 PM [facility] Albumin 5.0(H) 3.6 - 4.9 g/dL 02/26/2023 3:26 PM [facility] Total Bilirubin 0.4 <=1.2 mg/dL 02/27/20 3:26 PM [facility] Alkaline Phosphatase 57 9 - 122 U/L 02/26/2023 3:26 PM [facility] Alanine Aminotransferase (ALT) 27 9 - 59 U/L 02/26/2023 3:26 PM [facility] Comment:Calcium dobesilate c an cause artificially low ALT results at therapeutic concentrations Aspartate Aminotransferase (AST) 40(H) 10 - 35 U/L 02/26/2023 3:26 PM [facility] Globulin 2.7 2.3 - 3.5 g/dL 02/26/2023 3:26 PM [facility] A/G Ratio 1.9 1.0 - 2.2 02/26/2023 3:26 PM [facility] AST/ALT Ratio 1.5 Reference Range Not Established 02/26/2023 3:26 PM [facility] eGFR (Creatinine) >60 >=60 mL/min/1.73m2 02/26/2023 3:26 PM [facility] Comment: Values < 60 mL/min/1.73 m2 may indicate CKD if present for more than three months AND creatinine is at steady state. The eGFR provides a rough estimate of kidney function. On 03/19/22 all [facility] Clinical Labs and Epic began using a [id number]-typx-[id number] formula for estimating GFR called CKD-EPI Creatinine 2020. This equation reports eGFR based on creatinine, patient age, clinical sex, and is standardized to a body surface area of 1.73 m2. For the same creatinine, this new race-free eGFR will be lower than prior reported Black eGFR results and higher than prior Non-Black eGFR results. For further guidance, please refer to the CKD: Adult Professor Of Law Signature pathway. Blood Venipuncture / Unknown 02/26/2023 11:12 AM EDT 02/26/2023 11:12 AM EDT Ivana Martinez SEXUAL ASSAULT NURSE LAB BLOOD ORDERABLES Fi nal Result [address] [phone] * (ABNORMAL) Hemoglobin A1c (02/26/2023 11:12 AM EDT) [facility] Signature Hemoglobin A1c 5.8(H) 4.0 - 5.6 % 02/26/2023 7:37 PM T Comment: Hemoglobin A1c values of 5.7-6.4 % [...] mg/dL 120 mg/dL 02/26/2023 7:37 PM EDT Comment: Estimated average glucose (eAG) is a calculated value designed to estimate ??the expected average blood glucose level throughout the day from a single ??measurement of ??glycated hemoglobin A1C (HbA1c) and follows the calculation proposed by the [place] [employer] (Diabetes Care 31: 1-6, 2008). It may have less accuracy in children, women and patients with certain erythrocyte disorders. Blood Venipuncture / Unknown 02/26/2023 11:12 AM EDT 02/26/2023 11:12 AM EDT us Ivana Martinez APRN LAB BLOOD ORDERABLES Fi nal Result Performing Organization Address [facility]/State/[facility] Co de Phone Number [address] [phone] * (ABNORMAL) Lipid panel (02/26/2023 11:12 AM EDT) Cholesterol 180 See Comment mg/dL 02/26/2023 3:26 PM EDT Comment: Total Cholesterol (mg/dL) ?Adults (>18 years) ? Children (<18 years) Desirable ?<200 ? <170 Borderline-High ?200-239 ?170-199 High ? >=240 ?>=200 ? HDL 62 >=40 mg/dL 02/26/2023 3:26 PM [facility] Triglycerides 161(H) See Comment mg/dL 02/26/2023 3:26 PM [facility] Comment: Triglycerides (mg/dL) ?Adults (>18 years) ? Children (<18 years) Desirable ?<150 ? Not Established Borderline-High ?150-199 ?Not Established High ? 200-499 ?Not Established ?? Chol/HDL Ratio 2.9 0.0 - 5.0 02/26/2023 3:26 PM [facility] LDL Calculated 91 See Comment mg/dL 02/26/2023 3:26 PM [facility] Comment: Effective 01/09/2022, LDL is calculated [...] EDT 02/26/2023 11:12 AM EDT Ivana Martinez SEXUAL ASSAULT NURSE LAB BLOOD ORDERABLES [place] [address], [facility] [phone] * (ABNORMAL) Vitamin D, 25-hydroxy (02/26/2023 11:12 AM EDT) Vitamin R23-Irnrtuc 11.1(L) 30.0 - 100.0 ng/mL 02/27/2023 10:42 AM EDT Comment: Vitamin D Status: ??Results in ng/mL <10.0: ??Deficient 10.0 - 29.9: ??Insufficient 30.0 - 100.0: ??Sufficient >100: ??Toxic Reference ranges established by [employer]. Blood Venipuncture / Unknown 02/26/2023 11:12 AM EDT 02/26/2023 11:12 AM EDT Ivana Petastonle SEXUAL ASSAULT NURSE LAB BLOOD ORDERABLES Fi nal Result Performing Organization Address [facility] Co de Phone Number [address] [phone] * (ABNORMAL) Gamma GT (02/26/2023 11:12 AM EDT) GGT 108(H) <48 U/L 02/26/2023 3:26 PM EDT Blood Venipuncture / Unknown 02/26/2023 11:12 AM EDT 02/26/2023 11:12 AM EDT [facility] SEXUAL ASSAULT NURSE LAB BLOOD ORDERABLES Fi nal Result Performing Organization Address [facility] Number [address] [phone] * TSH w/reflex to FT4 ( GH LMW Q YH) (02/26/2023 11:12 AM EDT) Thyroid Stimulating Hormone 2.550 See Comment ??IU/mL 02/26/2023 3:26 PM EDT Comment: Male & Non- Females: 0.270-4.200 ??IU/mL 1st Trimester: 0.110-3.480 ??IU/mL 2nd Trimester: 0.320-3.850 ??IU/mL Blood Venipuncture / Unknown 02/26/2023 11:12 AM EDT 02/26/2023 11:12 AM EDT Ivana Pettingle SEXUAL ASSAULT NURSE LAB BLOOD ORDERABLES Fi nal Result Performing Organization Address [facility] Co de Phone Number [address] [phone] documented in this encounter Visit Diagnoses Diagnosis Hypertension, unspecified type Hypothyroidism, unspecified type LFT elevation Other abnormal blood chemistry Vitamin D deficiency Unspecified vitamin D deficiency documented in this encounter Additional Health Concerns Assessment Noted Time PHQ-9 Depression Total Score: 0 02/27/20 23 10:41 AM EDT documented as of this encounter Care Teams Plate Mounter Relationship Specialty Start Date End Date Ivana Martinez APRN PCP - General Family Medicine 05/13/22 01/27/24 documented as of this encounter
--- OUTSIDE RECORDS SUMMARY | 2024-09-22 11:34 | XMS_ITS | Encounter Summary ---
Author Organization [facility] Address [address] [place] [address] Care Team Providers Care Medical Staff Assistant Name Role Phone Ivana Martinez HECTOR Primary Care Provider Reason for Visit * Reason Comments Medication Refill Encounter Details Date Type Department Care Team (Late st Contact Info) Description 06/20/2021 Refill N[facility] Internal Medicine [address], 1st [place] [address] Zoya Clayton MD [facility] [address] [phone] Medication Refill Social History Tobacco [...] as of this encounter Care Teams Medical Staff Assistant Relationship Specialty Start Date End Date Ivana Martinez APRN PCP - General Family Medicine 05/13/22 01/27/24 documented as of this encounter
--- OUTSIDE RECORDS SUMMARY | 2024-09-22 11:34 | XMS_ITS | Encounter Summary ---
Author Organization [facility] Address [address] [place] [address] Care Team Providers Care Computer Science Teacher Name Role Phone Ivana Martinez HECTOR Primary Care Provider Encounter Details Date Type Department Care Team (Late st Contact Info) Description 11/17/2021 Scanned Document [facility] Internal Medicine [address], 1st Floor [place], [place] [address] Zoya Clayton MD [address] [phone] Social History Tobacco Use Types [...] documented as of this encounter Care Teams Computer Science Teacher Relationship Specialty Start Date End Date Ivana Martinze APRN PCP - General Family Medicine 05/13/22 01/27/24 documented as of this encounter
--- OUTSIDE RECORDS SUMMARY | 2024-09-22 11:34 | XMS_ITS | Encounter Summary ---
Author Organization [facility] Address [address] [place] [address] Care Team Providers Care Emergency Response Officer Name Role Phone Ivana Martinez HECTOR Primary Care Provider Reason for Visit * Reason Comments Medication Refill Encounter Details Date Type Department Care Team (Late st Contact Info) Description 06/01/2021 Refill NEM Internal Medicine [address] 1st [place] [address] Zoya Clayton MD [facility] [address] [phone] Medication Refill Social History Tobacco [...] documented as of this encounter Care Teams Emergency Response Officer Relationship Specialty Start Date End Date Ivana Martinez APRN PCP - General Family Medicine 05/13/22 01/27/24 documented as of this encounter
--- OUTSIDE RECORDS SUMMARY | 2024-09-22 11:34 | XMS_ITS | Encounter Summary ---
Author Organization [facility] Address [address] [place] [address] Care Team Providers Care Resident In Diagnostic Radiology Name Role Phone Ivana Martinez HECTOR Primary Care Provider Reason for Visit * Reason Comments Medication Refill Encounter Details Date Type Department Care Team (Late st Contact Info) Description 09/29/2020 Refill N[facility] Family Medicine [address] [place], [place] [id number] Zoya Clayton MD [address] [phone] Medication Refill Social History Tobacco [...] documented as of this encounter Care Teams Resident In Diagnostic Radiology Relationship Specialty Start Date End Date Ivana Martinez APRN PCP - General Family Medicine 05/13/22 01/27/24 documented as of this encounter
--- OUTSIDE RECORDS SUMMARY | 2024-09-22 11:34 | XMS_ITS | Encounter Summary ---
Author Organization [facility] Address [address] [place] [address] Care Team Providers Care Crew Chief Name Role Phone Pcp, No Primary Care Provider Unavailabl e Encounter Details Date Type Department Care Team (Late st Contact Info) Description 10/12/2022 Scanned Document Advanced Radiology [address] [phone] Matthew Rodney MD [address] [place] [address] Social History Tobacco Use Types Packs/Day Years Used Date Smoking Tobacco: Never Assessed Sex and Gender Information Value Date Recorded Sex Assigned at Not on file Gender Identity Not on file Sexual Orientation Not on file documented as of this encounter Plan of Treatment Not on file documented as of this encounter Visit Diagnoses Not on filedocumented in this encounter Care Teams Crew Chief Relationship Specialty Start Date End Date Pcp, No PCP - General 10/21/22 documented as of this encounter
--- OUTSIDE RECORDS SUMMARY | 2024-09-22 11:34 | XMS_ITS | Clinical Summary ---
Author Organization [address] Address [address] [place] [phone] Care Team Providers Care Collar Folder Operator Name Role Phone Unavailable Primary Care [...] - 5.6 % 02/26/2023 7:37 PM EDT [facility] Comment: Hemoglobin A1c values of 5.7-6.4 [...] mg/dL 120 mg/dL 02/26/2023 7:37 PM T [facility] Comment: Estimated average glucose (eAG) is a calculated value designed to estimate ??the expected average blood glucose level throughout the day from a single ??measurement of ??glycated hemoglobin A1C (HbA1c) and follows the calculation proposed by the [place] (Diabetes Care 31: 1-6, 2008). It may have less accuracy in children, women and patients with certain erythrocyte disorders. Blood Venipuncture / Unknown 02/26/2023 11:12 AM EDT 02/26/2023 11:12 AM EDT Ivana Martinez APRN LAB BLOOD ORDERABLES Fi nal Result [address] [phone] * Hepatitis C Ab with reflex to HCV PCR (05/13/2022 10:46 AM EDT) Hepatitis C Ab Initial Result 0.03 S/CO 05/13/2022 1:44 PM EDT [facility] Hepatitis C Ab Interpretation Non-React lilo Non-React lilo 05/13/2022 1:44 PM T [facility] Blood Venipuncture / Unknown 05/13/2022 10:46 AM EDT 05/13/2022 10:46 AM EDT us Ivana Martinez PEOPLESOFT HR DEVELOPER LAB BLOOD ORDERABLES Fi nal Result [address] [phone] * Colonoscopy (10/12/2021 7:19 AM EST) Colonoscopy Endoscopy Patient Name: Jay Guillermo ? Procedure Date: 10/12/2021 7:19 AM ?Date of : 1985 Age: 36 ? Gender: Male Admit Type: Outpatient ?CSN #: [id number] Note Status: Finalized ?Attending MD: Matthew Huynh [...] oxygen ? saturations were monitored continuously. The [id number] ? [id number] was introduced through the anus and advanced [...] Procedure Code(s): ? --- Professional --- ? 19589, Colonoscopy, flexible; with biopsy, single or ? multiple Diagnosis Code(s): ? --- Professional --- ? K62.89, Other specified diseases of anus and rectum ? R10.84, Generalized abdominal pain ? R19.7, Diarrhea, unspecified CPT copyright 2020 [employer]. All rights reserved. The codes documented in this report are preliminary and upon legal executive review may be revised to meet current [...] Recently Relevant to Health Maintenance Insurance [place] Advance Directives Documents on File Type Date Recorded Patient Fishing Lure Assembler Expl anation Healthcare Fishing Lure Assembler/Po wer of Property Assistant 03/19/2021 4:27 PM 2020
--- OUTSIDE RECORDS SUMMARY | 2024-09-22 11:34 | XMS_ITS | Encounter Summary ---
Author Organization [facility] Address [address] [place] [address] Care Team Providers Care Cross Country Coach Name Role Phone JohannaAndrew mcelroyhanie HECTOR Primary Care Provider Encounter Details Date Type Department Care Team (Late st Contact Info) Description 08/18/2021 [facility] Encounter [facility] Internal Medicine [address] [place] [address] Leny Hernandez MD Social History Tobacco Use [...] documented as of this encounter Care Teams Cross Country Coach Relationship Specialty Start Date End Date Ivana Martinez APRN PCP - General Family Medicine 05/13/22 01/27/24 documented as of this encounter
--- OUTSIDE RECORDS SUMMARY | 2024-09-22 11:34 | XMS_ITS | Encounter Summary ---
Author Organization [facility] Address [address] [place] [phone] Care Team Providers Care Geriatrician Name Role Phone Ivana Martinez HECTOR Primary Care Provider Encounter Details Date Type Department Care Team (Late st Contact Info) Description 08/27/2021 Scanned Document [address] [facility] [address] [place] [address] Provider, historical . Social History Tobacco [...] documented as of this encounter Care Teams Geriatrician Relationship Specialty Start Date End Date Ivana Martinez APRN PCP - General Family Medicine 05/13/22 01/27/24 documented as of this encounter
--- OUTSIDE RECORDS SUMMARY | 2024-09-22 11:34 | XMS_ITS | Encounter Summary ---
Author Organization [facility] Address [address] [place] [address] Care Team Providers Care Project Administrator Name Role Phone Ivana Martinez HECTOR Primary Care Provider Encounter Details Date Type Department Care Team (Late st Contact Info) Description 11/13/2020 Scanned Document [facility] Internal Medicine [address], 1[address] [place], [place] [address] Zoya Clayton MD [facility] [address] [phone] Social History Tobacco Use Types [...] documented as of this encounter Care Teams Project Administrator Relationship Specialty Start Date End Date Ivana Martinez APRN PCP - General Family Medicine 05/13/22 01/27/24 documented as of this encounter
--- OUTSIDE RECORDS SUMMARY | 2024-09-22 11:35 | XMS_ITS | Encounter Summary ---
Author Organization [facility] Address [address] [place] [address] Care Team Providers Care Elementary Librarian Name Role Phone Ivana Martinez HECTOR Primary Care Provider Reason for Visit * Reason Onset Date Comments Medication Refill 12/17/2022 Encounter Details Date Type Department Care Team (Late st Contact Info) Description 12/17/2022 Refill [facility] Dermatology at [address] [place], [place] [address] Noel Brandon MD [address] [place] [phone] Medication Refill Social History Tobacco Use Types [...] documented as of this encounter Care Teams Elementary Librarian Relationship Specialty Start Date End Date Ivana Martinez APRN PCP - General Family Medicine 05/13/22 01/27/24 documented as of this encounter
--- OUTSIDE RECORDS SUMMARY | 2024-09-22 11:35 | XMS_ITS | Encounter Summary ---
Author Organization [facility] Address [address] [place] [address] Care Team Providers Care Tipple Engineer Name Role Phone Ivana Martinez HECTOR Primary Care Provider Reason for Visit * Reason Onset Date Comments Medication Refill 12/31/2022 Encounter Details Date Type Department Care Team (Late st Contact Info) Description 12/31/[address] [facility] Internal Medicine [address] [place] [address] Zoya Clayton MD [address] [place] [phone] Medication Refill Social History Tobacco Use [...] documented as of this encounter Care Teams Tipple Engineer Relationship Specialty Start Date End Date Ivana Martinez APRN PCP - General Family Medicine 05/13/22 01/27/24 documented as of this encounter
--- OUTSIDE RECORDS SUMMARY | 2024-09-22 11:35 | XMS_ITS | Patient Health Record ---
Author Organization [facility], Address [address] [place] [address] Reason For Referral No Information Plan Of Treatment No Information Insurance Providers Payer Name Payer Address Payer Phone Subscriber Number Group Number Insured Name Patient Relationship to Insured Coverage Start Date Coverage End Date Medicaid of [place] [address] [place] [address] [id number] Jay major Self - patient is the insured
--- OUTSIDE RECORDS SUMMARY | 2024-09-22 11:35 | XMS_ITS | Encounter Summary ---
Author Organization [facility] Address [address] [place] [address] Care Team Providers Care Transcript Clerk Name Role Phone Pcp, No Primary Care Provider Unavailabl e Reason for Referral * Diagnostic Imaging (Routine) - Closed Specialty Diagnoses / Procedures Referred By Christian chatman Referred To Contact Diagnoses Microhematuria Procedures CT Urogram w w/o contrast w/3D Matthew Rodney MD [address] [place] [phone] Referral ID Status Reason Start Date Expiration Date Visits Re quested Visits Authorized [id number] Closed 10/08/2022 12/11/2022 1 1 Reason for Visit * Diagnostic Imaging (Routine) - Closed Specialty Diagnoses / Procedures Referred By Christian chatman Referred To Contact Diagnoses Microhematuria Procedures CT Urogram w w/o contrast w/3D Matthew Rodney MD [address] [place] [phone] Referral ID Status Reason Start Date Expiration Date Visits Re quested Visits Authorized [id number] Closed 10/08/2022 12/11/2022 1 1 Encounter Details Date Type Department Care Team ([facility] st Contact Info) Description 10/21/2022 2:14 PM EDT Hospital Encounter [facility] [address] [place] [phone] Microhematuria Social History Tobacco Use Types Packs/Day [...] mL documented in this encounter Care Teams Transcript Clerk Relationship Specialty Start Date End Date Pcp, No PCP - General 10/21/22 documented as of this encounter
--- OUTSIDE RECORDS SUMMARY | 2024-09-22 11:35 | XMS_ITS | Encounter Summary ---
Author Organization [facility] Address [address] [place] [address] Care Team Providers Care Math Teacher Name Role Phone Ivana Martinez APRN Primary Care Provider Reason for Visit * Reason Onset Date Comments Medication Refill 10/20/2022 Encounter Details Date Type Department Care Team (Late st Contact Info) Description 10/20/2022 Refill [facility] [place] [address] [facility] [place] [address] Ivana Martinez APRN [address] [place] [phone] Medication Refill Social History Tobacco Use [...] documented as of this encounter Care Teams Math Teacher Relationship Specialty Start Date End Date Ivana Martinez APRN PCP - General Family Medicine 05/13/22 01/27/24 documented as of this encounter
--- OUTSIDE RECORDS SUMMARY | 2024-09-22 11:35 | XMS_ITS | Encounter Summary ---
Author Organization [facility] Address [address] [place] [address] Care Team Providers Care Tobacco Cutter Name Role Phone Ivana Martinez HECTOR Primary Care Provider Reason for Visit * Reason Onset Date Comments Medication Refill 05/30/2022 Encounter Details Date Type Department Care Team (Late st Contact Info) Description 05/30/2022 Refill [facility] Internal Medicine [address], [address]st [place] [address] Zoya Clayton MD [address] [place] [phone] Medication Refill Social History Tobacco Use [...] documented as of this encounter Care Teams Tobacco Cutter Relationship Specialty Start Date End Date Ivana Martinez APRN PCP - General Family Medicine 05/13/22 01/27/24 documented as of this encounter
--- OUTSIDE RECORDS SUMMARY | 2024-09-22 11:35 | XMS_ITS | Encounter Summary ---
Author Organization [facility] Address [address] [place] [address] Care Team Providers Care Chemical Detection Expert Name Role Phone Ivana Martinez HECTOR Primary Care Provider Reason for Visit * Reason Comments Medication Refill Encounter Details Date Type Department Care Team (Late st Contact Info) Description 06/22/2022 Refill [facility] Internal [facility] [address] [place] [address] Zoya Clayton MD [employer] [phone] Medication Refill Social History Tobacco [...] as of this encounter Care Teams Chemical Detection Expert Relationship Specialty Start Date End Date Ivana Martinez APRN PCP - General Family Medicine 05/13/22 01/27/24 documented as of this encounter
--- OUTSIDE RECORDS SUMMARY | 2024-09-22 11:35 | XMS_ITS | Encounter Summary ---
Author Organization [facility] Address [address] [place] [address] Care Team Providers Care Patient Access Director Name Role Phone Ivana Martinez HECTOR Primary Care Provider Reason for Visit * Reason Onset Date Comments Medication Refill 08/28/2022 Encounter Details Date Type Department Care Team (Late st Contact Info) Description 08/28/[address] [facility] Internal Medicine [address], [address]st [place] [address] Zoya Clayton MD [address] [place] [phone] Medication Refill Social History Tobacco Use [...] as of this encounter Care Teams Patient Access Director Relationship Specialty Start Date End Date Ivana Martinez APRN PCP - General Family Medicine 05/13/22 01/27/24 documented as of this encounter
--- OUTSIDE RECORDS SUMMARY | 2024-09-22 11:35 | XMS_ITS | Encounter Summary ---
Author Organization [facility] Address [address] [place] [address] Care Team Providers Care Application Integration Engineer Name Role Phone Ivana Martinez APRN Primary Care Provider Encounter Details Date Type Department Care Team (Late st Contact Info) Description 09/03/2022 Transcribed Orders [place] [facility] [address] [place], [place] [phone] Ivana Martinez APRN [address] [facility] [address] [place] [address] Dysuria (Primary Dx) Social History [...] Associated Diagnosis Comments URINE MICROSCOPIC ([facility] LMW YH) Routine 09/03/2022 10:54 AM EST Dysuria URINALYSIS-MACROSCOP IC W/REFLEX MICROSCOPIC Routine 09/03/2022 10:54 AM EST Dysuria C. TRACHOMATIS / N. GONORRHOEAE, NAAT ( GH L LMW YH) Routine 09/03/2022 10:54 AM EST Dysuria NEISSERIA GONORRHEA, NAAT (LAB ORDER ONLY) ([facility] L LMW YH) Routine 09/03/2022 10:54 AM EST Dysuria CHLAMYDIA TRACHOMATIS, NAAT (LAB ORDER ONLY) ([facility] L LMW YH) Routine 09/03/2022 10:54 AM EST Dysuria URINE CULTURE Routine 09/03/2022 10:54 AM EST Dysuria documented in this encounter Results * (ABNORMAL) Urine microscopic ([facility] LMW YH) (09/03/2022 10:54 AM EST) RBC/HPF, UA 6(H) 0 - 2 /HPF 09/03/2022 12:05 PM [facility] WBC/HPF, UA 1 0 - 5 /HPF 09/03/2022 12:05 PM [facility] Bacteria, UA Rare None-Rare /HPF 09/03/2022 12:05 PM [facility] Hyaline Casts, UA 1 0 - 3 /LPF 09/03/2022 12:05 PM [facility] Urine Collection / Unknown 09/03/2022 10:54 AM EST 09/03/2022 10:54 AM EST us Ivana Martinez KNITTING MACHINE FIXER HEAD URINE ORDERABLES Final Result [address] [phone] * Chlamydia trachomatis, NAAT ( GH LMW YH) (09/03/2022 10:54 AM EST) Chlamydia DNA Probe Negative Negative 09/04/2022 11:43 AM [facility] Comment:The Aptima Combo2 As say is not intended for the evaluation of suspected sexual abuse or for other medico-legal indications. Specimen Source Urine (Dirty Catch) for DNA Probe 09/04/2022 11:43 AM [facility] Culture URINE SPECIMEN / Unknown Collection / Unknown 09/03/2022 10:54 AM EST 09/03/2022 10:54 AM EST Ivana Martinez APRN MICROBIOLOGY - GENERAL ORDERABLES Final Result Performing Organization Address [facility]/ZIP Co de Phone Number [address] [phone] * Neisseria gonorrhoeae, NAAT ( GH L LMW YH) (09/03/2022 10:54 AM EST) Neisseria gonorrhoeae, DNA Probe Negative Negative 09/04/2022 11:43 AM [facility] Comment:The Aptima Combo2 As say is not intended for the evaluation of suspected sexual abuse or for other medico-legal indications. Specimen Source Urine (Dirty Catch) for DNA Probe 09/04/2022 11:43 AM [facility] Culture URINE SPECIMEN / Unknown Collection / Unknown 09/03/2022 10:54 AM EST 09/03/2022 10:54 AM EST Ivana Martinez APRN MICROBIOLOGY - GENERAL ORDERABLES Final Result Performing Organization Address [facility]/ZIP Co de Phone Number [address] [phone] * (ABNORMAL) Urinalysis-macroscopic w/reflex microscopic (09/03/2022 10:54 AM EST) Clarity, UA Clear Clear 09/03/2022 11:59 AM [facility] Color, UA Yellow Yellow, Colorless 09/03/2022 11:59 AM [facility] Specific [place], UA 1.015 1.005 - 1.030 09/03/2022 11:59 AM [facility] pH, UA 6.5 5.5 - 7.5 09/03/2022 11:59 AM [facility] Protein, UA Negative Negative, Trace 09/03/2022 11:59 AM [facility] Glucose, UA Negative Negative 09/03/2022 11:59 AM [facility] Ketones, UA Negative Negative 09/03/2022 11:59 AM [facility] Blood, UA 2+(A) Negative 09/03/2022 11:59 AM [facility] Bilirubin, UA Negative Negative 09/03/2022 11:59 AM [facility] Leukocytes, UA Negative Negative 09/03/2022 11:59 AM [facility] Nitrite, UA Negative Negative 09/03/2022 11:59 AM [facility] Urobilinogen, UA <2.0 <=2.0 mg/dL 09/03/2022 11:59 AM [facility] Urine Collection / Unknown 09/03/2022 10:54 AM EST 09/03/2022 10:54 AM EST Ivana Martinez KNITTING MACHINE FIXER HEAD URINE ORDERABLES Final Result Performing Organization Address City/[facility]/ZIP Co de Phone Number [address] [phone] * Urine culture (09/03/2022 10:54 AM EST) Urine Culture, Routine No Growth 09/04/2022 1:27 PM [facility] Culture URINE SPECIMEN OBTAINED BY CLEAN CATCH PROCEDURE / Unknown Collection / Unknown 09/03/2022 10:54 AM EST 09/03/2022 10:54 AM EST Ivana Martinez APRN MICROBIOLOGY - GENERAL ORDERABLES Final Result Performing Organization Address [facility]/ZIP Co de Phone Number [address] [phone] documented in this encounter Visit Diagnoses Diagnosis Dysuria- Primary documented in this encounter Additional Health Concerns Assessment Noted Time PHQ-9 Depression Total Score: 1 09/02/19 23 1:40 PM EST documented as of this encounter Care Teams Application Integration Engineer Relationship Specialty Start Date End Date Ivana Martinez APRN PCP - General Family Medicine 05/13/22 01/27/24 documented as of this encounter
--- OUTSIDE RECORDS SUMMARY | 2024-09-22 11:35 | XMS_ITS | Encounter Summary ---
Author Organization [facility] Address [address] [place] [phone] Care Team Providers Care Regulatory Compliance Director Name Role Phone Andrew Martinezhanie HECTOR Primary Care Provider Reason for Visit * Reason Comments Medication Refill Encounter Details Date Type Department Care Team (Late st Contact Info) Description 06/30/2022 Refill [facility] Internal Medicine [address], [address] [place] [address] Souleymane Wilson DO [address] [place] [phone] Medication Refill Social History Tobacco Use Types [...] as of this encounter Care Teams Regulatory Compliance Director Relationship Specialty Start Date End Date Ivana Martinez APRN PCP - General Family Medicine 05/13/22 01/27/24 documented as of this encounter
--- OUTSIDE RECORDS SUMMARY | 2024-09-22 11:35 | XMS_ITS | Encounter Summary ---
Author Organization [facility] Address [address] [place] [address] Care Team Providers Care Planting Machine Operator Name Role Phone Ivana Martinez HECTOR Primary Care Provider Reason for Visit * Reason Onset Date Comments Medication Refill 06/25/2022 Encounter Details Date Type Department Care Team (Late st Contact Info) Description 06/25/2022 Refill [facility] Internal Medicine [address] [place] [address] Zoya Clayton MD [address] [place] [phone] Medication Refill Social History Tobacco Use [...] documented as of this encounter Care Teams Planting Machine Operator Relationship Specialty Start Date End Date Ivana Martinez APRN PCP - General Family Medicine 05/13/22 01/27/24 documented as of this encounter
--- OUTSIDE RECORDS SUMMARY | 2024-09-22 11:35 | XMS_ITS | Encounter Summary ---
Author Organization [facility] Address [address] [place] [address] Care Team Providers Care Enterostomal Therapy Nurse Name Role Phone Ivana Martinez APRN Primary Care Provider Encounter Details Date Type Department Care Team (Late st Contact Info) Description 09/03/2022 Orders Only [facility] Family Medicine [address] [place] [address] Ivana Martinez APRN [address] [place] [address] [address] [place] [address] Hypertension, unspecified type; Hypercalcemia; Elevated [...] 136 - 144 mmol/L 09/03/2022 12:57 PM [facility] Potassium 4.0 3.3 - 5.3 mmol/L 09/03/2022 12:57 PM [facility] Chloride 97(L) 98 - 107 mmol/L 09/03/2022 12:57 PM [facility] CO2 29 20 - 30 mmol/L 09/03/2022 12:57 PM [facility] Anion Gap 12 7 - 17 09/03/2022 12:57 PM [facility] Glucose 116(H) 70 - 100 mg/dL 09/03/2022 12:57 PM [facility] BUN 8 6 - 20 mg/dL 09/03/2022 12:57 PM [facility] Creatinine 0.86 0.40 - 1.30 mg/dL 09/03/2022 12:57 PM [facility] Calcium 9.5 8.8 - 10.2 mg/dL 09/03/2022 12:57 PM [facility] BUN/Creatinine Ratio 9.3 8.0 - 23.0 08/06 12:57 PM [facility] Total Protein 7.4 6.6 - 8.7 g/dL 09/03/2022 12:57 PM [facility] Albumin 5.0(H) 3.6 - 4.9 g/dL 09/03/2022 12:57 PM [facility] Total Bilirubin 1.0 <=1.2 mg/dL 09/03/19 12:57 PM [facility] Alkaline Phosphatase 70 9 - 122 U/L 12:57 PM [facility] Alanine Aminotransferase (ALT) 60(H) 9 - 59 U/L 09/03/2022 12:57 PM [facility] Comment:Calcium dobesilate c an cause artificially low ALT results at therapeutic concentrations Aspartate Aminotransferase (AST) 66(H) 10 - 35 U/L 09/03/2022 12:57 PM [facility] Globulin 2.4 2.3 - 3.5 g/dL 09/03/2022 12:57 PM [facility] A/G Ratio 2.1 1.0 - 2.2 09/03/2022 12:57 PM [facility] AST/ALT Ratio 1.1 See Comment 09/03/2022 12:57 PM [facility] Comment: [...] >60 >=60 mL/min/1.73 m2 09/03/2022 12:57 PM [facility] Comment:Estimated [...] 09/03/2022 9:58 AM EST us Ivana Martinez GLUER MACHINE OPERATOR LAB BLOOD ORDERABLES Fi nal Result [address] [phone] * (ABNORMAL) CBC auto differential (09/03/2022 9:58 AM EST) WBC 6.2 4.0 - 11.0 x1000/??L 09/03/2022 12:01 PM [facility] RBC 5.11 4.00 - 6.00 M/??L 09/03/2022 12:01 PM [facility] Hemoglobin 16.5 13.2 - 17.1 g/dL 09/03/2022 12:01 PM [facility] Hematocrit 47.30 38.50 - 50.00 % 09/03/2022 12:01 PM [facility] MCV 92.6 80.0 - 100.0 fL 09/03/2022 12:01 PM [facility] MCH 32.3 27.0 - 33.0 pg 09/03/2022 12:01 PM [facility] MCHC 34.9 31.0 - 36.0 g/dL 09/03/2022 12:01 PM [facility] RDW-CV 12.7 11.0 - 15.0 % 09/03/2022 12:01 PM [facility] Platelets 278 150 - 420 x1000/??L 09/03/2022 12:01 PM [facility] MPV 10.2 8.0 - 12.0 fL 09/03/2022 12:01 PM [facility] Neutrophils 40.9 39.0 - 72.0 % 09/03/2022 12:01 PM [facility] Lymphocytes 39.7 17.0 - 50.0 % 09/03/2022 12:01 PM [facility] Monocytes 8.8 4.0 - 12.0 % 09/03/2022 12:01 [facility] Eosinophils 9.3(H) 0.0 - 5.0 % 09/03/2022 12:01 PM [facility] Basophil 1.1 0.0 - 1.4 % 09/03/2022 12:01 PM [facility] Immature Granulocytes 0.2 0.0 - 1.0 % 09/03/2022 12:01 PM [facility] nRBC 0.0 0.0 - 1.0 % 09/03/2022 12:01 PM [facility] ANC(Abs Neutrophil Count) 2.55 2.00 - 7.60 x 1000/??L 09/03/2022 12:01 PM [facility] Absolute Lymphocyte Count 2.48 0.60 - 3.70 x 1000/??L 09/03/2022 12:01 PM [facility] Monocyte Absolute Count 0.55 0.00 - 1.00 x 1000/??L 09/03/2022 12:01 PM [facility] Eosinophil Absolute Count 0.58 0.00 - 1.00 x 1000/??L 09/03/2022 12:01 PM [facility] Basophil Absolute Count 0.07 0.00 - 1.00 x 1000/??L 09/03/2022 12:01 PM [facility] Absolute Immature Granulocyte Count 0.01 0.00 - 0.30 x 1000/??L 09/03/2022 12:01 PM [facility] Absolute nRBC 0.00 0.00 - 1.00 x 1000/??L 09/03/2022 12:01 PM [facility] Blood Venipuncture / Unknown 09/03/2022 9:58 AM EST 09/03/2022 9:58 AM EST Ivana Martinez GLUER MACHINE OPERATOR LAB BLOOD ORDERABLES Fi nal Result Performing Organization Address City/[facility]/ZIP Co de Phone Number [address] [phone] * Treponema pallidum (syphilis) antibody w/reflex (09/03/2022 9:58 AM EST) Treponema pallidum Ab Index <0.100 <0.9 Index 09/03/2022 1:38 PM [facility] Treponema pallidum Antibody Total, Serum Non-Reacti ve Non-Reacti ve 09/03/2022 1:38 PM [facility] Blood Venipuncture / Unknown 09/03/2022 9:58 AM EST 09/03/2022 9:58 AM EST Ivanaaldo Martinez GLUER MACHINE OPERATOR LAB BLOOD ORDERABLES Fi nal Result Performing Organization Address [facility]/ZIP Co de Phone Number [address] [phone] * (ABNORMAL) Gamma GT (09/03/2022 9:58 AM EST) GGT 133(H) <48 U/L 09/03/2022 12:57 PM [facility] Blood Venipuncture / Unknown 09/03/2022 9:58 AM EST 09/03/2022 9:58 AM EST [facility] GLUER MACHINE OPERATOR LAB BLOOD ORDERABLES Fi nal Result Performing Organization Address [facility] Phone [address] [phone] * (ABNORMAL) Vitamin D, 25-hydroxy (09/03/2022 9:58 AM EST) Vitamin F17-Xmeqprz 12.1(L) 30.0 - 100.0 ng/mL 09/03/2022 1:55 PM [facility] Comment: Vitamin D Status: ??Results in ng/mL <10.0: ??Deficient 10.0 - 29.9: ??Insufficient 30.0 - 100.0: ??Sufficient >100: ??Toxic Reference ranges established by [employer]. Blood Venipuncture / Unknown 09/03/2022 9:58 AM EST 09/03/2022 9:58 AM EST [facility] GLUER MACHINE OPERATOR LAB BLOOD ORDERABLES Fi nal Result Performing Organization Address [facility]/[address] [phone] * (ABNORMAL) Lipid panel (09/03/2022 9:58 AM EST) Cholesterol 201(H) See Comment mg/dL 09/03/2022 12:57 PM [facility] Comment: Total Cholesterol (mg/dL) ?Adults (>18 years) ? Children (<18 years) Desirable ?<200 ? <170 Borderline-High ?200-239 ?170-199 High ? >=240 ?>=200 ? HDL 76 >=40 mg/dL 09/03/2022 12:57 PM [facility] Triglycerides 157(H) See Comment mg/dL 09/03/2022 12:57 PM [facility] Comment: Triglycerides (mg/dL) ?Adults (>18 years) ? Children (<18 years) Desirable ?<150 ? Not Established Borderline-High ?150-199 ?Not Established High ? 200-499 ?Not Established ?? Chol/HDL Ratio 2.6 0.0 - 5.0 09/03/2022 12:57 PM [facility] LDL Calculated 98 See Comment mg/dL 09/03/2022 12:57 PM [facility] Comment: [...] APRN LAB BLOOD ORDERABLES Fi nal Result [address] [phone] * (ABNORMAL) Hemoglobin A1c (09/03/2022 9:58 AM EST) Hemoglobin A1c 5.7(H) 4.0 - 5.6 % 09/03/2022 12:34 PM [facility] Comment: Hemoglobin [...] Glucose mg/dL 117 mg/dL 09/03/2022 12:34 PM [facility] Comment: Estimated average glucose (eAG) is a calculated value designed to estimate ??the expected average blood glucose level throughout the day from a single ??measurement of ??glycated hemoglobin A1C (HbA1c) and follows the calculation proposed by the [place] [employer] (Diabetes Care 31: 1-6, 2008). It may have less accuracy in children, women and patients with certain erythrocyte disorders. Blood Venipuncture / Unknown 09/03/2022 9:58 AM EST 09/03/2022 9:58 AM EST Ivana Martinez APRN LAB BLOOD ORDERABLES Fi nal Result [address] [phone] * TSH w/reflex to FT4 (BH GH LMW Q YH) (09/03/2022 9:58 AM EST) Thyroid Stimulating Hormone 3.940 See Comment ??IU/mL 09/03/2022 12:57 PM EST [facility] Comment: Male & Non- Females: 0.270-4.200 ??IU/mL 1st Trimester: 0.110-3.480 ??IU/mL 2nd Trimester: 0.320-3.850 ??IU/mL Blood Venipuncture / Unknown 09/03/2022 9:58 AM EST 09/03/2022 9:58 AM EST us Ivana Martinez APRN LAB BLOOD ORDERABLES Fi nal Result Performing Organization Address City/State/[facility] Co de Phone Number [address] [phone] documented in this encounter Visit Diagnoses Diagnosis Hypertension, unspecified type Hypercalcemia Elevated LFTs Other abnormal blood chemistry Dysuria documented in this encounter Additional Health Concerns Assessment Noted Time PHQ-9 Depression Total Score: 1 09/02/19 23 1:40 PM EST documented as of this encounter Care Teams Enterostomal Therapy Nurse Relationship Specialty Start Date End Date Ivana Martinez APRN PCP - General Family Medicine 05/13/22 01/27/24 documented as of this encounter
--- OUTSIDE RECORDS SUMMARY | 2024-09-22 11:35 | XMS_ITS | Encounter Summary ---
Author Organization [facility] Address [address] [place] [address] Care Team Providers Care Barmaid Name Role Phone Ivana Martinez APRN Primary Care Provider Encounter Details Date Type Department Care Team (Late st Contact Info) Description 05/13/2022 Transcribed Orders [facility] [address] [place], [place] [address] Ivana Martinez APRN [address] [facility] [address] [place] [address] Hypocalcemia (Primary Dx); Hypertension, unspecified [...] Organization Address [facility]/State/[facility] Co de Phone Number [address] [phone] * PTH, intact without calcium (05/13/2022 10:46 AM EDT) Parathyroid Hormone, Intact 35.0 15.0 - 65.0 pg/mL 05/13/2022 12:49 PM EDT [facility] Blood Venipuncture / Unknown 05/13/2022 10:46 AM EDT 05/13/2022 10:46 AM EDT Ivanabhavin Martinez TECHNICAL SALES ENGINEER LAB BLOOD ORDERABLES Fi nal Result [facility] [address] [place] [address], [facility] [phone] * (ABNORMAL) Comprehensive metabolic panel (05/13/2022 10:46 AM EDT) Sodium 138 136 - 144 mmol/L 05/13/2022 1:07 PM [facility] Potassium 3.8 3.3 - 5.3 mmol/L 05/13/2022 1:07 PM [facility] Chloride 98 98 - 107 mmol/L 05/13/2022 1:07 PM [facility] CO2 28 20 - 30 mmol/L 05/13/2022 1:07 PM [facility] Anion Gap 12 7 - 17 05/13/2022 1:07 PM [facility] Glucose 105(H) 70 - 100 mg/dL 05/13/2022 1:07 PM [facility] BUN 6 6 - 20 mg/dL 05/13/2022 1:07 PM [facility] Creatinine 0.78 0.40 - 1.30 mg/dL 05/13/2022 1:07 PM [facility] Calcium 9.6 8.8 - 10.2 mg/dL 05/13/2022 1:07 PM [facility] BUN/Creatinine Ratio 7.7(L) 8.0 - 23.0 05/04 1:07 PM [facility] Total Protein 7.5 6.6 - 8.7 g/dL 05/13/2022 1:07 PM [facility] Albumin 5.2(H) 3.6 - 4.9 g/dL 05/13/2022 1:07 PM [facility] Total Bilirubin 0.5 <=1.2 mg/dL 05/13/20 1:07 PM [facility] Alkaline Phosphatase 81 9 - 122 U/L 05/2022 1:07 PM [facility] Alanine Aminotransferase (ALT) 45 9 - 59 U/L 05/13/2022 1:07 PM [facility] Comment:Calcium dobesilate c an cause artificially low ALT results at therapeutic concentrations Aspartate Aminotransferase (AST) 48(H) 10 - 35 U/L 05/13/2022 1:07 PM EDT [facility] Globulin 2.3 2.3 - 3.5 g/dL 05/13/2022 1:07 PM [facility] A/G Ratio 2.3(H) 1.0 - 2.2 05/13/2022 1:07 PM [facility] AST/ALT Ratio 1.1 See Comment 05/13/2022 1:07 PM [facility] Comment: Adult with mild elevations of transaminases (< 5 times upper limit of normal): AST/ALT > 2 suggests alcoholic liver injury AST/ALT < 1 suggests non-alcoholic fatty liver disease (NAFLD) [place] (healthy): AST/ALT can be > 3 on day 0 AST/ALT < 2 by day 5 The thresholds provided focus on the most common etiologies of elevated serum transaminase levels and the associated alteration of AST:ALT ratios; they are not intended to exclude other feasible and clinically appropriate possibilities eGFR (Creatinine) >60 >=60 mL/min/1.73 m2 05/13/2022 1:07 PM [facility] Comment:Estimated glomerular filtration rate (eGFR) was calculated [...] 05/13/2022 10:46 AM EDT us Ivana Martinez TECHNICAL SALES ENGINEER LAB BLOOD ORDERABLES Fi nal Result [address] [phone] * (ABNORMAL) CBC auto differential (05/13/2022 10:46 AM EDT) WBC 5.5 4.0 - 11.0 x1000/??L 05/13/2022 12:09 PM EDT [facility] RBC 5.19 4.00 - 6.00 M/??L 05/13/2022 12:09 PM [facility] Hemoglobin 16.6 13.2 - 17.1 g/dL 05/13/2022 12:09 PM [facility] Hematocrit 45.70 38.50 - 50.00 % 05/13/2022 12:09 PM [facility] MCV 88.1 80.0 - 100.0 fL 05/13/2022 12:09 PM [facility] MCH 32.0 27.0 - 33.0 pg 05/13/2022 12:09 PM [facility] MCHC 36.3(H) 31.0 - 36.0 g/dL 05/13/2022 12:09 PM [facility] RDW-CV 12.7 11.0 - 15.0 % 05/13/2022 12:09 PM [facility] Platelets 323 150 - 420 x1000/??L 05/13/2022 12:09 PM [facility] MPV 9.5 8.0 - 12.0 fL 05/13/2022 12:09 PM [facility] Neutrophils 36.5(L) 39.0 - 72.0 % 05/13/2022 12:09 PM [facility] Lymphocytes 42.0 17.0 - 50.0 % 05/13/2022 12:09 PM [facility] Monocytes 9.2 4.0 - 12.0 % 05/13/2022 12:09 PM [facility] Eosinophils 11.2(H) 0.0 - 5.0 % 05/13/2022 12:09 PM [facility] Basophil 1.1 0.0 - 1.4 % 05/13/2022 12:09 PM [facility] Immature Granulocytes 0.0 0.0 - 1.0 % 05/13/2022 12:09 PM [facility] nRBC 0.0 0.0 - 1.0 % 05/13/2022 12:09 PM [facility] ANC(Abs Neutrophil Count) 1.99(L) 2.00 - 7.60 x 1000/??L 05/13/2022 12:09 PM [facility] Absolute Lymphocyte Count 2.29 0.60 - 3.70 x 1000/??L 05/13/2022 12:09 PM [facility] Monocyte Absolute Count 0.50 0.00 - 1.00 [...] EDT 05/13/2022 10:46 AM EDT Ivanabhavin Martinez TECHNICAL SALES ENGINEER LAB BLOOD ORDERABLES Fi nal Result [address] [phone] * (ABNORMAL) Thyroid antibody panel ([facility]) (05/13/2022 10:46 AM EDT) Pathologist [facility] Thyroid Peroxidase Ab 163(H) 0 - 99 IU/mL 05/15/2022 1:01 PM EDT [facility] Thyroglobulin Ab <10.0 0 - 125 IU/mL 05/15/2022 1:01 PM EDT [facility] Blood Venipuncture / Unknown 05/13/2022 10:46 AM EDT 05/13/2022 10:46 AM EDT Ivanabhavin Martinez TECHNICAL SALES ENGINEER LAB BLOOD ORDERABLES Fi nal Result [address] [phone] * (ABNORMAL) THYROID PEROXIDASE ANTIBODY (05/13/2022 10:46 AM EDT) Thyroid Peroxidase Ab 163(H) 0 - 99 IU/mL 05/15/2022 1:01 PM EDT [facility] Blood Venipuncture / Unknown 05/13/2022 10:46 AM EDT 05/13/2022 10:46 AM EDT Ivana Martinez TECHNICAL SALES ENGINEER LAB BLOOD ORDERABLES Fi nal Result Performing Organization Address City/State/[facility] Co de Phone Number [address] [phone] * TESTOSTERONE, TOTAL (BH GH L LMW YH) (05/13/2022 10:46 AM EDT) Pathologist [facility] Testosterone, Total 302 229 - 902 [...] [place]. J Clin Endocrinol Metab. 2017 Nov 1;102(4):7558-7898. Blood Venipuncture / Unknown 05/13/2022 10:46 AM EDT 05/13/2022 10:46 AM EDT Ivanabhavin Martinez TECHNICAL SALES ENGINEER LAB BLOOD ORDERABLES Fi nal Result [address] [phone] * (ABNORMAL) Gamma GT (05/13/2022 10:46 AM EDT) GGT 92(H) <48 U/L 05/13/2022 12:53 PM EDT [facility] Blood Venipuncture / Unknown 05/13/2022 10:46 AM EDT 05/13/2022 10:46 AM EDT Iavna BitLeaplilibeth TECHNICAL SALES ENGINEER LAB BLOOD ORDERABLES Fi nal Result Performing Organization Address [facility] de Phone Number [address] [phone] * (ABNORMAL) Vitamin D, 25-hydroxy (05/13/2022 10:46 AM EDT) Vitamin N49-Sawmvtr 16.9(L) 30.0 - 100.0 ng/mL 05/13/2022 1:47 PM EDT [facility] Comment: Vitamin D Status: ??Results in ng/mL <10.0: ??Deficient 10.0 - 29.9: ??Insufficient 30.0 - 100.0: ??Sufficient >100: ??Toxic Reference ranges established by [employer]. Blood Venipuncture / Unknown 05/13/2022 10:46 AM EDT 05/13/2022 10:46 AM EDT Ivana Martinez TECHNICAL SALES ENGINEER LAB BLOOD ORDERABLES Fi nal Result Performing Organization Address [facility]/ZIP Ma de Phone Number [address] [phone] * Hepatitis C Ab with reflex to HCV PCR (05/13/2022 10:46 AM EDT) Hepatitis C Ab Initial Result 0.03 S/CO 05/13/2022 1:44 PM EDT [facility] Hepatitis C Ab Interpretation Non-React lilo Non-React lilo 05/13/2022 1:44 PM EDT [facility] Blood Venipuncture / Unknown 05/13/2022 10:46 AM EDT 05/13/2022 10:46 AM EDT [facility] TECHNICAL SALES ENGINEER LAB BLOOD ORDERABLES Fi nal Result Performing Organization Address [facility] de Phone [address] [phone] * (ABNORMAL) Lipid panel (05/13/2022 10:46 AM EDT) [facility] Cholesterol 185 See Comment mg/dL 05/13/2022 1:07 PM EDT [facility] Comment: Total Cholesterol (mg/dL) ?Adults (>18 years) ? Children (<18 years) Desirable ?<200 ? <170 Borderline-High ?200-239 ?170-199 High ? >=240 ?>=200 ? HDL 63 >=40 mg/dL 05/13/2022 1:07 PM [facility] Triglycerides 268(H) See Comment mg/dL 05/13/2022 1:07 PM [facility] Comment: Triglycerides (mg/dL) ?Adults (>18 years) ? Children (<18 years) Desirable ?<150 ? Not Established Borderline-High ?150-199 ?Not Established High ? 200-499 ?Not Established ?? Chol/HDL Ratio 2.9 0.0 - 5.0 05/13/2022 1:07 PM [facility] LDL Calculated 79 See Comment mg/dL 05/13/2022 1:07 PM [facility] Comment: Effective 01/09/2022, LDL is calculated using [...] 05/13/2022 10:46 AM EDT us Ivana Martinez TECHNICAL SALES ENGINEER LAB BLOOD ORDERABLES Fi nal Result [address] [phone] * (ABNORMAL) Vitamin B12 (05/13/2022 10:46 AM EDT) Vitamin B12 168(L) 232 - 1,245 pg/mL 05/13/2022 1:40 PM EDT [facility] Blood Venipuncture / Unknown 05/13/2022 10:46 AM EDT 05/13/2022 10:46 AM EDT Ivana Martinez TECHNICAL SALES ENGINEER LAB BLOOD ORDERABLES Fi nal Result Performing Organization Address [facility]/State/[place] [address], [facility] [phone] * (ABNORMAL) Hemoglobin A1c (05/13/2022 10:46 AM [...] and follows the calculation proposed by the [place] [employer] (Diabetes Care 31: 1-6, 2008). It may have less accuracy in children, women and patients with certain erythrocyte disorders. Blood Venipuncture / Unknown 05/13/2022 10:46 AM EDT 05/13/2022 10:46 AM EDT Ivanaaldo Martinez TECHNICAL SALES ENGINEER LAB BLOOD ORDERABLES Fi nal Result [address] [phone] * (ABNORMAL) TSH w/reflex to FT4 (BH [...] Result Performing Organization Address City/[facility] Co de Phone Number [address] [phone] documented in this encounter Visit Diagnoses Diagnosis [...] documented as of this encounter Care Teams Barmaid Relationship Specialty Start Date End Date Ivana Martinez APRN PCP - General Family Medicine 05/13/22 01/27/24 documented as of this encounter
[2024-09-22 12:06] LABS: Estimated Average Glucose 108 mg/dL; Hemoglobin A1C 140.7318 umol/L; Hemoglobin A1c % 5.4 % (<6.0); Total Hemoglobin (HGBA1C) 3996.7094 umol/L
[2024-09-22 12:08] LABS: Basophils Absolute Auto 0.1 X10*3/uL (0.0-0.2); Basophils Percent Auto 0.9 % (0-2); Eosinophils Absolute Auto 0.6 X10*3/uL (0.0-0.4); Eosinophils Percent Auto 8.9 % (0-4); Hematocrit 44.2 % (42.0-52.0); Hemoglobin 15.7 g/dl (14.0-18.0); Imm Gran Abs Auto 0.01 X10*3/uL (0.00-0.03); Imm Gran Pct Auto 0.2 % (0.0-0.4); Lymphocytes Absolute Auto 2.5 X10*3/uL (1.2-4.9); Lymphocytes Percent Auto 37.1 % (20-40); Mean Corpuscular HGB Conc 35.5 g/dl (31.0-36.0); Mean Corpuscular Hemoglobin 32.3 pg (27.0-33.0); Mean Corpuscular Volume 90.9 fL (80.0-98.0); Mean Platelet Volume 9.6 fL (9.4-12.4); Monocytes Absolute Auto 0.6 X10*3/uL (0.1-1.2); Monocytes Percent Auto 8.8 % (2-11); Neutrophils Absolute Auto 2.9 x10*3/uL (2.0-8.3); Neutrophils Percent Auto 44.1 % (45-73); Platelet Count 351 X10*3/uL (160-400); Red Blood Count 4.86 X10*6/uL (4.60-5.80); Red Cell Distribution Width 12.7 % (11.0-16.0); White Blood Count 6.6 X10*3/uL (4.8-10.8)
[2024-09-22 12:52] LABS: Alanine Aminotransferase 31 U/L (0-40); Albumin Level 4.6 g/dL (3.5-5.0); Alkaline Phosphatase 51 U/L (39-117); Anion Gap 12 (12-20); Aspartate Amino Transferase 31 U/L (5-37); Bilirubin Direct 0.2 mg/dL (0.0-0.5); Bilirubin Total 0.9 mg/dL (0.0-1.0); Blood Urea Nitrogen 6 mg/dL (9-16); C Reactive Protein 0.14 mg/dL (< or = 0.50); Calcium 9.5 mg/dL (8.4-10.2); Carbon Dioxide 28 mmol/L (22-29); Chloride 102 mmol/L (96-108); Cholesterol 182 mg/dL (<200); Estimated Glomerular Filt Rate > 60; Glucose Fasting 107 mg/dL (60-99); HDL Cholesterol 57 mg/dL (>40); LDL Cholesterol Calculated 83 mg/dL (<100); Magnesium 1.9 mg/dL (1.6-2.6); Sodium 138 mmol/L (135-145); Total Protein 7.8 g/dL (6.5-8.0); Triglycerides 211 mg/dL (<150)
[2024-09-22 12:58] LABS: PSA,Total (Free>4and<10) 0.52 ng/mL (0.00-4.00); TSH reflex Free T4 2.35 uIU/mL (0.32-4.0); Vitamin D 25-OH Total 9.4 ng/mL (>30)
[2024-09-22 13:08] LABS: Folate 7.3 ng/mL (> or = 4.0); Vitamin B12 170 pg/mL (200-900)
== END 2024-09-22 10:50 | disposition home or self-care (01) ==
LOC: HO.LAB 10:49
PROVIDERS: PCP Internal Medicine; Visit Provider Physician Assistant Medical
DX: Z00.00 Encounter for general adult medical examination without abnormal findings (principal)
CPT/HCPCS: 36415; 80053; 80061; 80076; 82248; 82306; 82607; 82746; 83036; 83735; 84153; 84425; 84443; 85025; 86140

== ENCOUNTER 2024-09-24 11:06 | Outpatient (REF) | payer OTHER, SELFPAY ==
--- OUTSIDE RECORDS SUMMARY | 2024-09-24 12:12 | XMS_ITS | Encounter Summary ---
Author Organization [facility] Address [address] [place] [address] Care Team Providers Care Buffing Wheel Former Automatic Name Role Phone Ivana Martinez HECTOR Primary Care Provider Encounter Details Date Type Department Care Team (Late st Contact Info) Description 11/08/2020 Scanned Document [address] [employer] [facility] [address] [place] [id number] External, Provider Social History Tobacco Use Types [...] documented as of this encounter Care Teams Buffing Wheel Former Automatic Relationship Specialty Start Date End Date Ivana Martinez APRN PCP - General Family Medicine 05/13/22 01/27/24 documented as of this encounter
--- OUTSIDE RECORDS SUMMARY | 2024-09-24 12:12 | XMS_ITS | Encounter Summary ---
Author Organization [facility] Address [address] [place] [address] Care Team Providers Care Supervisor Mold [employer] Name Role Phone Ivana Martinez HECTOR Primary Care Provider Reason for Visit * Reason Onset Date Comments Medication Refill 05/02/2022 Encounter Details Date Type Department Care Team (Late st Contact Info) Description 05/02/2022 Refill [facility] Internal Medicine [address] [place] [address] Zoya Clayton MD [address] [place] [phone] Medication Refill Social History Tobacco Use [...] as of this encounter Care Teams Supervisor [employer] Shop Relationship Specialty Start Date End Date Ivana Martinez APRN PCP - General Family Medicine 05/13/22 01/27/24 documented as of this encounter
--- OUTSIDE RECORDS SUMMARY | 2024-09-24 12:12 | XMS_ITS | Encounter Summary ---
Author Organization [facility] Address [address] [place] [address] Care Team Providers Care Hop Weigher Name Role Phone Ivana Martinez HECTOR Primary Care Provider Encounter Details Date Type Department Care Team (Late st Contact Info) Description 11/13/2020 Scanned Document [facility] Internal Medicine [address] [place], [place] [address] Zoya Clayton MD [facility] [address] [phone] Social History Tobacco Use Types [...] documented as of this encounter Care Teams Hop Weigher Relationship Specialty Start Date End Date Ivana Martinez APRN PCP - General Family Medicine 05/13/22 01/27/24 documented as of this encounter
--- OUTSIDE RECORDS SUMMARY | 2024-09-24 12:12 | XMS_ITS | Encounter Summary ---
Author Organization [facility] Address [address] [place] [phone] Care Team Providers Care Cafe Cook Name Role Phone JohannaAndrew mcelroyhanie HECTOR Primary Care Provider Encounter Details Date Type Department Care Team (Late st Contact Info) Description 11/19/2021 Scanned Document [facility] Internal Medicine [address] [place], [place] [phone] Provider, historical . Social History Tobacco Use [...] RIGHT AP INTERNA L AP EXTERNAL AXILLARY ([facility] Y) Routine 11/17/2021 documented in [...] documented as of this encounter Care Teams Cafe Cook Relationship Specialty Start Date End Date Ivana Martinez APRN PCP - General Family Medicine 05/13/22 01/27/24 documented as of this encounter
--- OUTSIDE RECORDS SUMMARY | 2024-09-24 12:12 | XMS_ITS | Clinical Summary ---
Author Organization [facility] Address [address] [place] [address] Phone Care Team Providers Care Race And Sports Book Writer Name Role Phone Unavailable Primary Care Provider Unavailabl e Encounters Date Type Department Care Team Description 08/19/[address] [facility] - [facility] Lab [address] [facility] [place] [address] Denzel Longo MD Local infection [...] after 4 Weeks 09/16/2024 1:07 PM EST [facility] Skin 08/19/2024 08/19/2024 5:1 5 PM EST Denzel Longo MD LAB MICROBIOLOGY - G ENERAL ORDERABLES Final Result [facility] [address] [place] [address], [place] [phone] from Last 3 Months Insurance [place]
--- OUTSIDE RECORDS SUMMARY | 2024-09-24 12:12 | XMS_ITS | Encounter Summary ---
Author Organization [facility] Address [address] [place] [address] Care Team Providers Care Marketing Research Coordinator Name Role Phone Ivana Martinez HECTOR Primary Care Provider Encounter Details Date Type Department Care Team (Late st Contact Info) Description 09/26/2021 Scanned Document [facility] Internal Medicine [address], 1st Floor [place], [place] [phone] Zoya Clayton MD [facility] [address] [phone] Social History Tobacco Use Types [...] documented as of this encounter Care Teams Marketing Research Coordinator Relationship Specialty Start Date End Date Ivana Martinez APRN PCP - General Family Medicine 05/13/22 01/27/24 documented as of this encounter
--- OUTSIDE RECORDS SUMMARY | 2024-09-24 12:12 | XMS_ITS | Encounter Summary ---
Author Organization [facility] Address [address] [place] [address] Care Team Providers Care Animal Husbandry Manager Name Role Phone Ivana Martinez HECTOR Primary Care Provider Reason for Visit * Reason Onset Date Comments Medication Refill 02/26/2022 Encounter Details Date Type Department Care Team (Late st Contact Info) Description 02/26/2022 Refill [facility] Internal Medicine [address], [address] [place] [address] Zoya Clayton MD [address] [place] [phone] Medication Refill Social History Tobacco Use [...] documented as of this encounter Care Teams Animal Husbandry Manager Relationship Specialty Start Date End Date Ivana Martinez APRN PCP - General Family Medicine 05/13/22 01/27/24 documented as of this encounter
--- OUTSIDE RECORDS SUMMARY | 2024-09-24 12:12 | XMS_ITS | Encounter Summary ---
Author Organization [facility] Address [address] [place] [address] Care Team Providers Care Process Architect Name Role Phone Ivana Martinez APRN Primary Care Provider Encounter Details Date Type Department Care Team (Late st Contact Info) Description 05/05/2019 Scanned Document Scarlet Espinosa M.D. [address] [facility] [address] [place] [address] Jeffy Espinosa MD [address] [place] [phone] Social History Tobacco Use Types Packs/Day [...] documented as of this encounter Care Teams Process Architect Relationship Specialty Start Date End Date Ivana Martinez APRN PCP - General Family Medicine 05/13/22 01/27/24 documented as of this encounter
--- OUTSIDE RECORDS SUMMARY | 2024-09-24 12:12 | XMS_ITS | Encounter Summary ---
Author Organization [facility] Address [address] [place] [address] Care Team Providers Care Reamer Hand Name Role Phone JohannaAndrew mcelroyhanie HECTOR Primary Care Provider Encounter Details Date Type Department Care Team (Late st Contact Info) Description 08/18/2021 EpicOnHand Encounter [facility] Internal Medicine [address] [place] [address] Leny Hernandez MD Social History Tobacco Use [...] documented as of this encounter Care Teams Reamer Hand Relationship Specialty Start Date End Date Ivana Martinez APRN PCP - General Family Medicine 05/13/22 01/27/24 documented as of this encounter
--- OUTSIDE RECORDS SUMMARY | 2024-09-24 12:12 | XMS_ITS | Encounter Summary ---
Author Organization [facility] Address [address] [place] [address] Care Team Providers Care Brush Holder Assembler Name Role Phone Ivana Martinez HECTOR Primary Care Provider Encounter Details Date Type Department Care Team (Late st Contact Info) Description 10/12/2021 Scanned Document [facility] Gastroenterology [facility] [address] [place] [address] Matthew Huynh MD [address] [place] [address] Social History Tobacco Use Types [...] documented as of this encounter Care Teams Brush Holder Assembler Relationship Specialty Start Date End Date Ivana Martinez APRN PCP - General Family Medicine 05/13/22 01/27/24 documented as of this encounter
--- OUTSIDE RECORDS SUMMARY | 2024-09-24 12:12 | XMS_ITS | Encounter Summary ---
Author Organization [facility] Address [address] [place] [address] Care Team Providers Care Insert Operator Name Role Phone Ivana Martinez PRODUCT LINE MANAGER Primary Care Provider Reason for Visit * Reason Comments Medication Refill Encounter Details Date Type Department Care Team (Late st Contact Info) Description 12/30/2021 Refill [facility] Gastroenterology [facility] [address] [facility] [address] [place], [place] [phone] Matthew Huynh MD [address] [place] [address] Medication Refill Social History Tobacco [...] documented as of this encounter Care Teams Insert Operator Relationship Specialty Start Date End Date Ivana Martinez APRN PCP - General Family Medicine 05/13/22 01/27/24 documented as of this encounter
--- OUTSIDE RECORDS SUMMARY | 2024-09-24 12:12 | XMS_ITS | Encounter Summary ---
Author Organization [facility] Address [address] [place] [address] Care Team Providers Care Chuck Wagon Cook Name Role Phone Pcp, No Primary Care Provider Unavailabl e Encounter Details Date Type Department Care Team (Late st Contact Info) Description 10/12/2022 Scanned Document [facility] [address] [phone] Matthew Rodney MD [address] [place] [address] Social History Tobacco Use Types Packs/Day Years Used Date Smoking Tobacco: Never Assessed Sex and Gender Information Value Date Recorded Sex Assigned at Not on file Gender Identity Not on file Sexual Orientation Not on file documented as of this encounter Plan of Treatment Not on file documented as of this encounter Visit Diagnoses Not on filedocumented in this encounter Care Teams Chuck Wagon Cook Relationship Specialty Start Date End Date Pcp, No PCP - General 10/21/22 documented as of this encounter
--- OUTSIDE RECORDS SUMMARY | 2024-09-24 12:12 | XMS_ITS | Encounter Summary ---
Author Organization [facility] Address [address] [place] [address] Care Team Providers Care Roving Weight Gauger Name Role Phone Ivana Martinez HECTOR Primary Care Provider Reason for Visit * Reason Comments Medication Refill Encounter Details Date Type Department Care Team (Late st Contact Info) Description 04/01/2022 Refill [facility] Internal Medicine [address]st [place] [address] Zoya Clayton MD [facility] [address] [phone] Medication Refill Social History Tobacco [...] documented as of this encounter Care Teams Roving Weight Gauger Relationship Specialty Start Date End Date Ivana Martinez APRN PCP - General Family Medicine 05/13/22 01/27/24 documented as of this encounter
--- OUTSIDE RECORDS SUMMARY | 2024-09-24 12:12 | XMS_ITS | Encounter Summary ---
Author Organization [facility] Address [address] [place] [address] Care Team Providers Care Logging Worker Name Role Phone Ivana Martinez HECTOR Primary Care Provider Reason for Visit * Reason Onset Date Comments Medication Refill 07/12/2021 Encounter Details Date Type Department Care Team (Late st Contact Info) Description 07/12/2021 Refill [facility] Internal Medicine [address], [address] [place] [address] Zoya Clayton MD [address] [place] [phone] Medication Refill Social History Tobacco Use [...] as of this encounter Care Teams Logging Worker Relationship Specialty Start Date End Date Ivana Martinez APRN PCP - General Family Medicine 05/13/22 01/27/24 documented as of this encounter
--- OUTSIDE RECORDS SUMMARY | 2024-09-24 12:12 | XMS_ITS | Encounter Summary ---
Author Organization [facility] Address [address] [place] [address] Care Team Providers Care Management Aide Name Role Phone Unavailable Primary Care Provider Unavailabl e Encounter Details Date Type Department Care Team (Late st Contact Info) Description 08/19/[address] [facility] - Main Lab [address] [place] [address] Denzel Longo MD [address] [place] [address] [place] [phone] Local infection of the skin and subcutaneous [...] after 4 Weeks 09/16/2024 1:07 PM EST [facility] Skin 08/19/2024 08/19/2024 5:1 5 PM EST us Denzel Longo MD LAB MICROBIOLOGY - G ENERAL ORDERABLES Final Result [facility] [address] [place] [address], documented in this encounter Visit Diagnoses Diagnosis Local infection of the skin and subcutaneous tissue, unspecified documented in this encounter
--- OUTSIDE RECORDS SUMMARY | 2024-09-24 12:12 | XMS_ITS | Encounter Summary ---
Author Organization [facility] Address [address] [place] [phone] Care Team Providers Care Immigration Services Officer Name Role Phone Ivana Martinez HECTOR Primary Care Provider Encounter Details Date Type Department Care Team (Late st Contact Info) Description 08/27/2021 Scanned Document [address] [facility] [address] [place] [address] Provider, historical . Social History Tobacco [...] documented as of this encounter Care Teams Immigration Services Officer Relationship Specialty Start Date End Date Ivana Martinez APRN PCP - General Family Medicine 05/13/22 01/27/24 documented as of this encounter
--- OUTSIDE RECORDS SUMMARY | 2024-09-24 12:12 | XMS_ITS | Encounter Summary ---
Author Organization [facility] Address [address] [place] [address] Care Team Providers Care Morning Show Host Name Role Phone Ivana Martinez APRN Primary Care Provider Encounter Details Date Type Department Care Team (Late st Contact Info) Description 05/06/2019 Scanned Document Scarlet Espinosa M.D. 22 [facility] [address] [place] [address] Jeffy Espinosa MD [address] [place] [phone] Social History Tobacco Use Types Packs/Day [...] documented as of this encounter Care Teams Morning Show Host Relationship Specialty Start Date End Date Ivana Martinez APRN PCP - General Family Medicine 05/13/22 01/27/24 documented as of this encounter
--- OUTSIDE RECORDS SUMMARY | 2024-09-24 12:12 | XMS_ITS | Encounter Summary ---
Author Organization [facility] Address [address] [place] [address] Care Team Providers Care Cork Mixer Name Role Phone Ivana Martinez HECTOR Primary Care Provider Encounter Details Date Type Department Care Team (Late st Contact Info) Description 08/22/2021 Scanned Document [facility] Internal Medicine [address], 1st Floor [place], [place] [address] Zoya Clayton MD [address] [phone] Social History Tobacco Use Types [...] documented as of this encounter Care Teams Cork Mixer Relationship Specialty Start Date End Date Ivana Martienz APRN PCP - General Family Medicine 05/13/22 01/27/24 documented as of this encounter
--- OUTSIDE RECORDS SUMMARY | 2024-09-24 12:12 | XMS_ITS | Encounter Summary ---
Author Organization [facility] Address [address] [place] [address] Care Team Providers Care Local Bulk Driver Name Role Phone Ivana Martinez HECTOR Primary Care Provider Reason for Visit * Reason Comments Medication Refill Encounter Details Date Type Department Care Team (Late st Contact Info) Description 06/20/2021 Refill [facility] Internal Medicine [address], 1st [place] [address] Zoya Clayton MD [facility] [address] [phone] Medication Refill Social History Tobacco [...] documented as of this encounter Care Teams Local Bulk Driver Relationship Specialty Start Date End Date Ivana Martinez APRN PCP - General Family Medicine 05/13/22 01/27/24 documented as of this encounter
--- OUTSIDE RECORDS SUMMARY | 2024-09-24 12:12 | XMS_ITS | Encounter Summary ---
Author Organization [facility] Address [address] [place] [address] Care Team Providers Care Spray Painter Helper Name Role Phone Ivana Martinez HECTOR Primary Care Provider Encounter Details Date Type Department Care Team (Late st Contact Info) Description 11/17/2021 Scanned Document [facility] Internal Medicine [address], 1st Floor [place], [place] [address] Zoya Clayton MD [address] [phone] Social History Tobacco Use Types [...] documented as of this encounter Care Teams Spray Painter Helper Relationship Specialty Start Date End Date Ivnaa Martinez APRN PCP - General Family Medicine 05/13/22 01/27/24 documented as of this encounter
--- OUTSIDE RECORDS SUMMARY | 2024-09-24 12:12 | XMS_ITS | Encounter Summary ---
Author Organization [facility] Address [address] [place] [address] Care Team Providers Care Magento Web Developer Name Role Phone Ivana Martinez HECTOR Primary Care Provider Reason for Visit * Reason Comments Medication Refill Encounter Details Date Type Department Care Team (Late st Contact Info) Description 06/01/2021 Refill [facility] Internal Medicine [address], [address] [place] [address] Zoya Clayton MD [facility] [address] [phone] Medication Refill Social History Tobacco [...] documented as of this encounter Care Teams Magento Web Developer Relationship Specialty Start Date End Date Ivana Martinez APRN PCP - General Family Medicine 05/13/22 01/27/24 documented as of this encounter
--- OUTSIDE RECORDS SUMMARY | 2024-09-24 12:12 | XMS_ITS | Encounter Summary ---
Author Organization [facility] Address [address] [place] [address] Care Team Providers Care Oyster Opener Name Role Phone Ivana Martinez HECTOR Primary Care Provider Reason for Visit * Reason Comments Medication Refill Encounter Details Date Type Department Care Team (Late st Contact Info) Description 09/29/2020 Refill [facility] Family Medicine [address] [place], [place] [phone] Zoya Clayton MD [address] [phone] Medication Refill Social History Tobacco [...] documented as of this encounter Care Teams Oyster Opener Relationship Specialty Start Date End Date Ivana Martinez APRN PCP - General Family Medicine 05/13/22 01/27/24 documented as of this encounter
--- OUTSIDE RECORDS SUMMARY | 2024-09-24 12:12 | XMS_ITS | Encounter Summary ---
Author Organization [facility] Address [address] [place] [phone] Care Team Providers Care Campus Security Officer Name Role Phone Andrew Martinezhanie HECTOR Primary Care Provider Encounter Details Date Type Department Care Team (Late st Contact Info) Description 09/26/2021 Scanned Document [facility] Internal Medicine [address], 1st Floor [place], [place] [phone] External, Provider Social History Tobacco Use Types [...] documented as of this encounter Care Teams Campus Security Officer Relationship Specialty Start Date End Date Ivana Martinez APRN PCP - General Family Medicine 05/13/22 01/27/24 documented as of this encounter
--- OUTSIDE RECORDS SUMMARY | 2024-09-24 12:12 | XMS_ITS | Encounter Summary ---
Author Organization [facility] Address [address] [place] [address] Care Team Providers Care Manager Technology Name Role Phone Pcp, No Primary Care Provider Unavailabl e Reason for Referral * Diagnostic Imaging (Routine) - Closed Specialty Diagnoses / Procedures Referred By Christian chatman Referred To Contact Diagnoses Microhematuria Procedures CT Urogram w w/o contrast w/3D Matthew Rodney MD [address] [place] [address] Referral ID Status Reason Start Date Expiration Date Visits Re quested Visits Authorized [id number] Closed 10/08/2022 12/11/2022 1 1 Reason for Visit * Diagnostic Imaging (Routine) - Closed Specialty Diagnoses / Procedures Referred By Christian chatman Referred To Contact Diagnoses Microhematuria Procedures CT Urogram w w/o contrast w/3D Matthew Rodney MD [address] [place] [address] Referral ID Status Reason Start Date Expiration Date Visits Re quested Visits Authorized [id number] Closed 10/08/2022 12/11/2022 1 1 Encounter Details Date Type Department Care Team ([facility] st Contact Info) Description 10/21/2022 2:14 PM EDT Hospital Encounter Advanced Radiology [address] [place] [phone] Microhematuria Social History Tobacco Use Types Packs/Day [...] mL documented in this encounter Care Teams Manager Technology Relationship Specialty Start Date End Date Pcp, No PCP - General 10/21/22 documented as of this encounter
--- OUTSIDE RECORDS SUMMARY | 2024-09-24 12:12 | XMS_ITS | Clinical Summary ---
Author Organization [address] Address [address] [place] [phone] Care Team Providers Care Hospitalist Nocturnist Physician Name Role Phone Unavailable Primary Care Provider [...] 5.6 % 02/26/2023 7:37 PM EDT [facility] Comment: Hemoglobin A1c values of [...] mg/dL 120 mg/dL 02/26/2023 7:37 PM T [facility] Comment: Estimated average glucose (eAG) is a calculated value designed to estimate ??the expected average blood glucose level throughout the day from a single ??measurement of ??glycated hemoglobin A1C (HbA1c) and follows the calculation proposed by the [place] [employer] (Diabetes Care 31: 1-6, 2008). It may have less accuracy in children, women and patients with certain erythrocyte disorders. Blood Venipuncture / Unknown 02/26/2023 11:12 AM EDT 02/26/2023 11:12 AM EDT Ivana Martinez APRN LAB BLOOD ORDERABLES Fi nal Result [address] [phone] * Hepatitis C Ab with reflex to HCV PCR (05/13/2022 10:46 AM EDT) Hepatitis C Ab Initial Result 0.03 S/CO 05/13/2022 1:44 PM EDT [facility] Hepatitis C Ab Interpretation Non-React lilo Non-React lilo 05/13/2022 1:44 PM T [facility] Blood Venipuncture / Unknown 05/13/2022 10:46 AM EDT 05/13/2022 10:46 AM EDT us Ivana Martinez POT FIREMAN LAB BLOOD ORDERABLES Fi nal Result [address] [phone] * Colonoscopy (10/12/2021 7:19 AM EST) Colonoscopy Endoscopy Patient Name: Jay Guillermo ? Procedure Date: 10/12/2021 7:19 AM ?Date of : 1985 Age: 36 ? Gender: Male Admit Type: Outpatient ?CSN #: [id number] Note Status: Finalized ?Attending MD: Matthew Huynh [...] oxygen ? saturations were monitored continuously. The [id number] ? [id number] was introduced through the anus and advanced [...] Procedure Code(s): ? --- Professional --- ? 35383, Colonoscopy, flexible; with biopsy, single or ? multiple Diagnosis Code(s): ? --- Professional --- ? K62.89, Other specified diseases of anus and rectum ? R10.84, Generalized abdominal pain ? R19.7, Diarrhea, unspecified CPT copyright 2020 [employer]. All rights reserved. The codes documented in this report are preliminary and upon product support technician review may be revised to meet current [...] Recently Relevant to Health Maintenance Insurance [place] Advance Directives Documents on File Type Date Recorded Patient Fisheries Officer Expl anation Healthcare Fisheries Officer/Po wer of Nurseryman Assistant 03/19/2021 4:27 PM 2020
--- OUTSIDE RECORDS SUMMARY | 2024-09-24 12:12 | XMS_ITS | Encounter Summary ---
Author Organization [facility] Address [address] [place] [address] Care Team Providers Care Eye Technician Name Role Phone Ivana Martinez HECTOR Primary Care Provider Reason for Visit * Reason Onset Date Comments Medication Refill 10/29/2021 Encounter Details Date Type Department Care Team (Late st Contact Info) Description 10/29/2021 Refill [facility] Internal Medicine [address], 1st [place] [address] Zoya Clayton MD [address] [place] [phone] Medication Refill Social History Tobacco Use [...] documented as of this encounter Care Teams Eye Technician Relationship Specialty Start Date End Date Ivana Martinez APRN PCP - General Family Medicine 05/13/22 01/27/24 documented as of this encounter
--- OUTSIDE RECORDS SUMMARY | 2024-09-24 12:12 | XMS_ITS | Encounter Summary ---
Author Organization [facility] Address [address] [place] [address] Care Team Providers Care Paint Technician Name Role Phone Ivana Martinez APRN Primary Care Provider Encounter Details Date Type Department Care Team (Late st Contact Info) Description 02/26/2023 Orders Only [facility] Family Medicine [address] [place] [address] Ivana Martinez APRN [address] [place] [address] [address] [place] [address] Hypertension, unspecified type; Hypothyroidism, unspecified [...] 4.0 - 11.0 x1000/??L 02/26/2023 3:06 PM [facility] RBC 5.06 4.00 - 6.00 M/??L 02/26/2023 3:06 PM [facility] Hemoglobin 16.4 13.2 - 17.1 g/dL 02/26/2023 3:06 PM [facility] Hematocrit 44.90 38.50 - 50.00 % 02/26/2023 3:06 PM [facility] MCV 88.7 80.0 - 100.0 fL 02/26/2023 3:06 PM [facility] MCH 32.4 27.0 - 33.0 pg 02/26/2023 3:06 PM [facility] MCHC 36.5(H) 31.0 - 36.0 g/dL 02/26/2023 3:06 PM [facility] RDW-CV 12.6 11.0 - 15.0 % 02/26/2023 3:06 PM [facility] Platelets 331 150 - 420 x1000/??L 02/26/2023 3:06 PM [facility] MPV 9.8 8.0 - 12.0 fL 02/26/2023 3:06 PM [facility] Neutrophils 42.8 39.0 - 72.0 % 02/26/2023 3:06 PM [facility] Lymphocytes 37.2 17.0 - 50.0 % 02/26/2023 3:06 PM [facility] Monocytes 9.5 4.0 - 12.0 % 02/26/2023 3:06 PM [facility] Eosinophils 8.8(H) 0.0 - 5.0 % 02/26/2023 3:06 PM [facility] Basophil 1.3 0.0 - 1.4 % 02/26/2023 3:06 PM [facility] Immature Granulocytes 0.4 0.0 - 1.0 % 02/26/2023 3:06 PM EDT [facility] nRBC 0.0 0.0 - 1.0 % 02/26/2023 3:06 PM EDT [facility] ANC(Abs Neutrophil Count) 2.30 2.00 - 7.60 x 1000/??L 02/26/2023 3:06 PM [facility] Absolute Lymphocyte Count 2.00 0.60 - 3.70 x 1000/??L 02/26/2023 3:06 PM EDT [facility] Monocyte Absolute Count 0.51 0.00 - 1.00 x 1000/??L [facility]osin[facility] Count 0.47 0.00 - 1.00 x 1000/??L 02/26/2023 3:06 PM [facility] Basophil Absolute Count 0.07 0.00 - 1.00 x 1000/??L 02/26/2023 3:06 PM [facility] Absolute Immature Granulocyte Count 0.02 0.00 - 0.30 x 1000/??L 02/26/2023 3:06 PM [facility] Absolute nRBC 0.00 0.00 - 1.00 x 1000/??L 02/26/2023 3:06 PM [facility] Blood Venipuncture / Unknown 02/26/2023 11:12 AM EDT 02/26/2023 11:12 AM EDT us Ivana Martinez RF MICROWAVE ENGINEER LAB BLOOD ORDERABLES Fi nal Result [address] [phone] * (ABNORMAL) Comprehensive metabolic panel (02/26/2023 11:12 AM EDT) Sodium 140 136 - 144 mmol/L 02/26/2023 3:26 PM EDT [facility] Potassium 4.1 3.3 - 5.3 mmol/L 02/26/2023 3:26 PM T [facility] Chloride 99 98 - 107 mmol/L 02/26/2023 3:26 PM EDT [facility] CO2 30 20 - 30 mmol/L 02/26/2023 3:26 PM [facility] Anion Gap 11 7 - 17 02/26/2023 3:26 PM [facility] Glucose 96 70 - 100 mg/dL 02/26/2023 3:26 PM [facility] BUN 8 6 - 20 mg/dL 02/26/2023 3:26 PM [facility] Creatinine 0.76 0.40 - 1.30 mg/dL 02/26/2023 3:26 PM [facility] Calcium 10.0 8.8 - 10.2 mg/dL 02/26/2023 3:26 PM [facility] BUN/Creatinine Ratio 10.5 8.0 - 23.0 02/26/2023 3:26 PM [facility] Total Protein 7.7 6.6 - 8.7 g/dL 023 3:26 PM [facility] Albumin 5.0(H) 3.6 - 4.9 g/dL 02/26/2023 3:26 PM [facility] Total Bilirubin 0.4 <=1.2 mg/dL 02/27/20 3:26 PM [facility] Alkaline Phosphatase 57 9 - 122 U/L 02/26/2023 3:26 PM [facility] Alanine Aminotransferase (ALT) 27 9 - 59 U/L 02/26/2023 3:26 PM [facility] Comment:Calcium dobesilate c an cause artificially low ALT results at therapeutic concentrations Aspartate Aminotransferase (AST) 40(H) 10 - 35 U/L 02/26/2023 3:26 PM [facility] Globulin 2.7 2.3 - 3.5 g/dL 02/26/2023 3:26 PM [facility] A/G Ratio 1.9 1.0 - 2.2 02/26/2023 3:26 PM [facility] AST/ALT Ratio 1.5 Reference Range Not Established 02/26/2023 3:26 PM [facility] eGFR (Creatinine) >60 >=60 mL/min/1.73m2 02/26/2023 3:26 PM [facility] Comment: Values < 60 mL/min/1.73 m2 may indicate CKD if present for more than three months AND creatinine is at steady state. The eGFR provides a rough estimate of kidney function. On 03/19/22 all [facility] Clinical Labs and Epic began using a cud-ldeu-vraey formula for estimating GFR called CKD-EPI Creatinine 2020. This equation reports eGFR based on creatinine, patient age, clinical sex, and is standardized to a body surface area of 1.73 m2. For the same creatinine, this new race-free eGFR will be lower than prior reported Black eGFR results and higher than prior Non-Black eGFR results. For further guidance, please refer to the CKD: Adult Appeals Analyst Signature pathway. Blood Venipuncture / Unknown 02/26/2023 11:12 AM EDT 02/26/2023 11:12 AM EDT Ivana Martinez RF MICROWAVE ENGINEER LAB BLOOD ORDERABLES Fi nal Result [address] [phone] * (ABNORMAL) Hemoglobin A1c (02/26/2023 11:12 AM EDT) [facility] Signature Hemoglobin A1c 5.8(H) 4.0 - 5.6 % 02/26/2023 7:37 PM T [facility] Comment: Hemoglobin A1c [...] and follows the calculation proposed by the [place] [employer] (Diabetes Care 31: 1-6, 2008). It may have less accuracy in children, women and patients with certain erythrocyte disorders. Blood Venipuncture / Unknown 02/26/2023 11:12 AM EDT 02/26/2023 11:12 AM EDT us Ivana Martinez APRN LAB BLOOD ORDERABLES Fi nal Result Performing Organization Address [facility]/State/[facility] Co de Phone Number [address] [phone] * (ABNORMAL) Lipid panel (02/26/2023 11:12 AM EDT) Cholesterol 180 See Comment mg/dL 02/26/2023 3:26 PM EDT [facility] Comment: Total Cholesterol (mg/dL) ?Adults (>18 years) ? Children (<18 years) Desirable ?<200 ? <170 Borderline-High ?200-239 ?170-199 High ? >=240 ?>=200 ? HDL 62 >=40 mg/dL 02/26/2023 3:26 PM [facility] Triglycerides 161(H) See Comment mg/dL 02/26/2023 3:26 PM [facility] Comment: Triglycerides (mg/dL) ?Adults (>18 years) ? Children (<18 years) Desirable ?<150 ? Not Established Borderline-High ?150-199 ?Not Established High ? 200-499 ?Not Established ?? Chol/HDL Ratio 2.9 0.0 - 5.0 02/26/2023 3:26 PM [facility] LDL Calculated 91 See Comment mg/dL 02/26/2023 3:26 PM [facility] Comment: Effective 01/09/2022, LDL is calculated using [...] EDT 02/26/2023 11:12 AM EDT Ivana Martinez RF MICROWAVE ENGINEER LAB BLOOD ORDERABLES [place] [address], [facility] [phone] * (ABNORMAL) Vitamin D, 25-hydroxy (02/26/2023 11:12 AM EDT) Vitamin C45-Pqnjgnt 11.1(L) 30.0 - 100.0 ng/mL 02/27/2023 10:42 AM EDT [facility] Comment: Vitamin D Status: ??Results in ng/mL <10.0: ??Deficient 10.0 - 29.9: ??Insufficient 30.0 - 100.0: ??Sufficient >100: ??Toxic Reference ranges established by [email or web address]. Blood Venipuncture / Unknown 02/26/2023 11:12 AM EDT 02/26/2023 11:12 AM EDT Ivana Petastonle RF MICROWAVE ENGINEER LAB BLOOD ORDERABLES Fi nal Result Performing Organization Address [facility] Co de Phone Number [address] [phone] * (ABNORMAL) Gamma GT (02/26/2023 11:12 AM EDT) GGT 108(H) <48 U/L 02/26/2023 3:26 PM EDT [facility] Blood Venipuncture / Unknown 02/26/2023 11:12 AM EDT 02/26/2023 11:12 AM EDT [facility] RF MICROWAVE ENGINEER LAB BLOOD ORDERABLES Fi nal Result Performing Organization Address [facility] Number [address] [phone] * TSH w/reflex to FT4 ( GH LMW Q YH) (02/26/2023 11:12 AM EDT) Thyroid Stimulating Hormone 2.550 See Comment ??IU/mL 02/26/2023 3:26 PM EDT [facility] Comment: Male & Non- Females: 0.270-4.200 ??IU/mL 1st Trimester: 0.110-3.480 ??IU/mL 2nd Trimester: 0.320-3.850 ??IU/mL Blood Venipuncture / Unknown 02/26/2023 11:12 AM EDT 02/26/2023 11:12 AM EDT Ivana Pettingle RF MICROWAVE ENGINEER LAB BLOOD ORDERABLES Fi nal Result Performing Organization Address [facility] Co de Phone Number [address] [phone] documented in this encounter Visit Diagnoses Diagnosis Hypertension, unspecified type Hypothyroidism, unspecified type LFT elevation Other abnormal blood chemistry Vitamin D deficiency Unspecified vitamin D deficiency documented in this encounter Additional Health Concerns Assessment Noted Time PHQ-9 Depression Total Score: 0 02/27/20 23 10:41 AM EDT documented as of this encounter Care Teams Paint Technician Relationship Specialty Start Date End Date Ivana Martinez APRN PCP - General Family Medicine 05/13/22 01/27/24 documented as of this encounter
--- OUTSIDE RECORDS SUMMARY | 2024-09-24 12:12 | XMS_ITS | Clinical Summary ---
Author Organization [facility] Address [address] [place] [address] Care Team Providers Care Shake Packer Name Role Phone Pcp, No Primary Care [...] age to complete this topic Care Teams Shake Packer Relationship Specialty Start Date End Date Pcp, No PCP - General 10/21/22
--- OUTSIDE RECORDS SUMMARY | 2024-09-24 12:13 | XMS_ITS | Encounter Summary ---
Author Organization [facility] Address [address] [place] [address] Care Team Providers Care Herbarium Worker Name Role Phone Ivana Martinez APRN Primary Care Provider Encounter Details Date Type Department Care Team (Late st Contact Info) Description 05/13/2022 Transcribed Orders [place] [address] [place], [place] [address] Ivana Martinez APRN [address] [facility] [address] [place] [address] Hypocalcemia (Primary Dx); Hypertension, unspecified [...] See Comment ng/dL 05/13/2022 2:16 PM EDT [facility] Comment: For patients taking levothyroxine, the [...] ORDERABLES Fi nal Result Performing Organization Address [facility]/State/[place] Co de Phone Number [address] [phone] * PTH, intact without calcium (05/13/2022 10:46 AM EDT) Parathyroid Hormone, Intact 35.0 15.0 - 65.0 pg/mL 05/13/2022 12:49 PM EDT [facility] Blood Venipuncture / Unknown 05/13/2022 10:46 AM EDT 05/13/2022 10:46 AM EDT Ivanabhavin Martinez COMMERCIAL SUBCONTRACTOR LAB BLOOD ORDERABLES Fi nal Result [facility] [address] [place] [address], [facility] [phone] * (ABNORMAL) Comprehensive metabolic panel (05/13/2022 10:46 AM EDT) Sodium 138 136 - 144 mmol/L 05/13/2022 1:07 PM [facility] Potassium 3.8 3.3 - 5.3 mmol/L 05/13/2022 1:07 PM [facility] Chloride 98 98 - 107 mmol/L 05/13/2022 1:07 PM [facility] CO2 28 20 - 30 mmol/L 05/13/2022 1:07 PM [facility] Anion Gap 12 7 - 17 05/13/2022 1:07 PM [facility] Glucose 105(H) 70 - 100 mg/dL 05/13/2022 1:07 PM [facility] BUN 6 6 - 20 mg/dL 05/13/2022 1:07 PM [facility] Creatinine 0.78 0.40 - 1.30 mg/dL 05/13/2022 1:07 PM [facility] Calcium 9.6 8.8 - 10.2 mg/dL 05/13/2022 1:07 PM [facility] BUN/Creatinine Ratio 7.7(L) 8.0 - 23.0 05/04 1:07 PM [facility] Total Protein 7.5 6.6 - 8.7 g/dL 05/13/2022 1:07 PM [facility] Albumin 5.2(H) 3.6 - 4.9 g/dL 05/13/2022 1:07 PM [facility] Total Bilirubin 0.5 <=1.2 mg/dL 05/13/20 1:07 PM [facility] Alkaline Phosphatase 81 9 - 122 U/L 05/2022 1:07 PM [facility] Alanine Aminotransferase (ALT) 45 9 - 59 U/L 05/13/2022 1:07 PM [facility] Comment:Calcium dobesilate c an cause artificially low ALT results at therapeutic concentrations Aspartate Aminotransferase (AST) 48(H) 10 - 35 U/L 05/13/2022 1:07 PM EDT [facility] Globulin 2.3 2.3 - 3.5 g/dL 05/13/2022 1:07 PM [facility] A/G Ratio 2.3(H) 1.0 - 2.2 05/13/2022 1:07 PM [facility] AST/ALT Ratio 1.1 See Comment 05/13/2022 1:07 PM [facility] Comment: Adult with mild elevations of transaminases (< 5 times upper limit of normal): AST/ALT > 2 suggests alcoholic liver injury AST/ALT < 1 suggests non-alcoholic fatty liver disease (NAFLD) [place] (healthy): AST/ALT can be > 3 on day 0 AST/ALT < 2 by day 5 The thresholds provided focus on the most common etiologies of elevated serum transaminase levels and the associated alteration of AST:ALT ratios; they are not intended to exclude other feasible and clinically appropriate possibilities eGFR (Creatinine) >60 >=60 mL/min/1.73 m2 05/13/2022 1:07 PM [facility] Comment:Estimated glomerular filtration [...] 05/13/2022 10:46 AM EDT us Ivana Martinez COMMERCIAL SUBCONTRACTOR LAB BLOOD ORDERABLES Fi nal Result [address] [phone] * (ABNORMAL) CBC auto differential (05/13/2022 10:46 AM EDT) WBC 5.5 4.0 - 11.0 x1000/??L 05/13/2022 12:09 PM EDT [facility] RBC 5.19 4.00 - 6.00 M/??L 05/13/2022 12:09 PM [facility] Hemoglobin 16.6 13.2 - 17.1 g/dL 05/13/2022 12:09 PM [facility] Hematocrit 45.70 38.50 - 50.00 % 05/13/2022 12:09 PM [facility] MCV 88.1 80.0 - 100.0 fL 05/13/2022 12:09 PM [facility] MCH 32.0 27.0 - 33.0 pg 05/13/2022 12:09 PM [facility] MCHC 36.3(H) 31.0 - 36.0 g/dL 05/13/2022 12:09 PM [facility] RDW-CV 12.7 11.0 - 15.0 % 05/13/2022 12:09 PM [facility] Platelets 323 150 - 420 x1000/??L 05/13/2022 12:09 PM [facility] MPV 9.5 8.0 - 12.0 fL 05/13/2022 12:09 PM [facility] Neutrophils 36.5(L) 39.0 - 72.0 % 05/13/2022 12:09 PM [facility] Lymphocytes 42.0 17.0 - 50.0 % 05/13/2022 12:09 PM [facility] Monocytes 9.2 4.0 - 12.0 % 05/13/2022 12:09 PM [facility] Eosinophils 11.2(H) 0.0 - 5.0 % 05/13/2022 12:09 PM [facility] Basophil 1.1 0.0 - 1.4 % 05/13/2022 12:09 PM [facility] Immature Granulocytes 0.0 0.0 - 1.0 % 05/13/2022 12:09 PM [facility] nRBC 0.0 0.0 - 1.0 % 05/13/2022 12:09 PM [facility] ANC(Abs Neutrophil Count) 1.99(L) 2.00 - 7.60 x 1000/??L 05/13/2022 12:09 PM [facility] Absolute Lymphocyte Count 2.29 0.60 - 3.70 x 1000/??L 05/13/2022 12:09 PM [facility] Monocyte Absolute Count 0.50 0.00 - 1.00 x 1000/??L 05/13/2022 12:09 PM EDT [facility] Eosinophil Absolute Count 0.61 0.00 - 1.00 x 1000/??L 05/13/2022 12:09 PM EDT [facility] Basophil Absolute Count 0.06 0.00 - 1.00 x 1000/??L 05/13/2022 12:09 PM T [facility] Absolute Immature Granulocyte Count 0.00 0.00 - 0.30 x 1000/??L 05/13/2022 12:09 PM T [facility] Absolute nRBC 0.00 0.00 - 1.00 x 1000/??L 05/13/2022 12:09 PM T [facility] Blood Venipuncture / Unknown 05/13/2022 10:46 AM EDT 05/13/2022 10:46 AM EDT Ivanabhavin Martinez COMMERCIAL SUBCONTRACTOR LAB BLOOD ORDERABLES Fi nal Result [address] [phone] * (ABNORMAL) Thyroid antibody panel ([facility]) (05/13/2022 10:46 AM EDT) Pathologist [facility] Thyroid Peroxidase Ab 163(H) 0 - 99 IU/mL 05/15/2022 1:01 PM EDT [facility] Thyroglobulin Ab <10.0 0 - 125 IU/mL 05/15/2022 1:01 PM EDT [facility] Blood Venipuncture / Unknown 05/13/2022 10:46 AM EDT 05/13/2022 10:46 AM EDT Ivanabhavin Martinez COMMERCIAL SUBCONTRACTOR LAB BLOOD ORDERABLES Fi nal Result [address] [phone] * (ABNORMAL) THYROID PEROXIDASE ANTIBODY (05/13/2022 10:46 AM EDT) Thyroid Peroxidase Ab 163(H) 0 - 99 IU/mL 05/15/2022 1:01 PM EDT [facility] Blood Venipuncture / Unknown 05/13/2022 10:46 AM EDT 05/13/2022 10:46 AM EDT Ivana Martinez COMMERCIAL SUBCONTRACTOR LAB BLOOD ORDERABLES Fi nal Result Performing Organization Address City/State/[place] Co de Phone Number [address] [phone] * TESTOSTERONE, TOTAL (BH GH L LMW YH) (05/13/2022 10:46 AM EDT) Pathologist [facility] Testosterone, Total 302 229 - 902 ng/dL 05/13/2022 1:18 PM EDT [facility] Comment: The following testosterone reference ranges [...] [place]. J Clin Endocrinol Metab. 2017 Nov 1;102(4):6465-5962. Blood Venipuncture / Unknown 05/13/2022 10:46 AM EDT 05/13/2022 10:46 AM EDT Ivanabhavin Martinez COMMERCIAL SUBCONTRACTOR LAB BLOOD ORDERABLES Fi nal Result [address] [phone] * (ABNORMAL) Gamma GT (05/13/2022 10:46 AM EDT) GGT 92(H) <48 U/L 05/13/2022 12:53 PM EDT [facility] Blood Venipuncture / Unknown 05/13/2022 10:46 AM EDT 05/13/2022 10:46 AM EDT Ivana Shadow Puppetlilibeth COMMERCIAL SUBCONTRACTOR LAB BLOOD ORDERABLES Fi nal Result Performing Organization Address [facility] de Phone Number [address] [phone] * (ABNORMAL) Vitamin D, 25-hydroxy (05/13/2022 10:46 AM EDT) Vitamin O78-Pqpcabg 16.9(L) 30.0 - 100.0 ng/mL 05/13/2022 1:47 PM EDT [facility] Comment: Vitamin D Status: ??Results in ng/mL <10.0: ??Deficient 10.0 - 29.9: ??Insufficient 30.0 - 100.0: ??Sufficient >100: ??Toxic Reference ranges established by [employer]. Blood Venipuncture / Unknown 05/13/2022 10:46 AM EDT 05/13/2022 10:46 AM EDT Ivana Martinez COMMERCIAL SUBCONTRACTOR LAB BLOOD ORDERABLES Fi nal Result Performing Organization Address [facility]/ZIP [place] de Phone Number [address] [phone] * Hepatitis C Ab with reflex to HCV PCR (05/13/2022 10:46 AM EDT) Hepatitis C Ab Initial Result 0.03 S/CO 05/13/2022 1:44 PM EDT [facility] Hepatitis C Ab Interpretation Non-React lilo Non-React lilo 05/13/2022 1:44 PM EDT [facility] Blood Venipuncture / Unknown 05/13/2022 10:46 AM EDT 05/13/2022 10:46 AM EDT [facility] COMMERCIAL SUBCONTRACTOR LAB BLOOD ORDERABLES Fi nal Result Performing Organization Address [facility] de Phone [address] [phone] * (ABNORMAL) Lipid panel (05/13/2022 10:46 AM EDT) [facility] Cholesterol 185 See Comment mg/dL 05/13/2022 1:07 PM EDT [facility] Comment: Total Cholesterol (mg/dL) ?Adults (>18 years) ? Children (<18 years) Desirable ?<200 ? <170 Borderline-High ?200-239 ?170-199 High ? >=240 ?>=200 ? HDL 63 >=40 mg/dL 05/13/2022 1:07 PM [facility] Triglycerides 268(H) See Comment mg/dL 05/13/2022 1:07 PM [facility] Comment: Triglycerides (mg/dL) ?Adults (>18 years) ? Children (<18 years) Desirable ?<150 ? Not Established Borderline-High ?150-199 ?Not Established High ? 200-499 ?Not Established ?? Chol/HDL Ratio 2.9 0.0 - 5.0 05/13/2022 1:07 PM [facility] LDL Calculated 79 See Comment mg/dL 05/13/2022 1:07 PM [facility] Comment: Effective 01/09/2022, LDL is calculated using the El-NIH equation, which is more accurate than the Friedewald and Gato-Sanchze equations. LDL Cholesterol (mg/dL) ?Adults (>18 years) ? Children (<18 years) Desirable ?<100 ? <110 Above Desirable ?100-129 ?Not Established Borderline-High ?130-159 ?110- 129 High ? 160-189 ?>=130 Very High? >=190 ? Not Established Blood Venipuncture / Unknown 05/13/2022 10:46 AM EDT 05/13/2022 10:46 AM EDT us Ivana Martinez COMMERCIAL SUBCONTRACTOR LAB BLOOD ORDERABLES Fi nal Result [address] [phone] * (ABNORMAL) Vitamin B12 (05/13/2022 10:46 AM EDT) Vitamin B12 168(L) 232 - 1,245 pg/mL 05/13/2022 1:40 PM EDT [facility] Blood Venipuncture / Unknown 05/13/2022 10:46 AM EDT 05/13/2022 10:46 AM EDT Ivana Martinez COMMERCIAL SUBCONTRACTOR LAB BLOOD ORDERABLES Fi nal Result Performing Organization Address [facility]/State/ZIP [place] [address], [facility] [phone] * (ABNORMAL) Hemoglobin A1c (05/13/2022 10:46 AM EDT) Hemoglobin A1c 5.7(H) 4.0 - 5.6 % 05/13/2022 1:42 PM EDT [facility] Comment: Hemoglobin A1c values of 5.7-6.4 [...] mg/dL 117 mg/dL 05/13/2022 1:42 PM EDT [facility] Comment: Estimated average glucose (eAG) is a calculated value designed to estimate ??the expected average blood glucose level throughout the day from a single ??measurement of ??glycated hemoglobin A1C (HbA1c) and follows the calculation proposed by the [place] Diabetes [employer] (Diabetes Care 31: 1-6, 2008). It may have less accuracy in children, women and patients with certain erythrocyte disorders. Blood Venipuncture / Unknown 05/13/2022 10:46 AM EDT 05/13/2022 10:46 AM EDT Ivanaaldo Martinez COMMERCIAL SUBCONTRACTOR LAB BLOOD ORDERABLES Fi nal Result [address] [phone] * (ABNORMAL) TSH w/reflex to FT4 (BH GH LMW Q YH) (05/13/2022 10:46 AM EDT) Thyroid Stimulating Hormone 4.470(H) See Comment ??IU/mL 05/13/2022 1:07 PM EDT [facility] Comment: Male & Non- Females: 0.270-4.200 ??IU/mL 1st Trimester: 0.110-3.480 ??IU/mL 2nd Trimester: 0.320-3.850 ??IU/mL Blood Venipuncture / Unknown 05/13/2022 10:46 AM EDT 05/13/2022 10:46 AM EDT Ivana Martinez APRN LAB BLOOD ORDERABLES Fi nal Result Performing Organization Address City/[facility] Co de Phone Number [address] [phone] documented in this encounter Visit Diagnoses Diagnosis [...] documented as of this encounter Care Teams Herbarium Worker Relationship Specialty Start Date End Date Ivana Martinez APRN PCP - General Family Medicine 05/13/22 01/27/24 documented as of this encounter
--- OUTSIDE RECORDS SUMMARY | 2024-09-24 12:13 | XMS_ITS | Encounter Summary ---
Author Organization [facility] Address [address] [place] [phone] Care Team Providers Care Vacuum Plastic Forming Machine Operator Name Role Phone Andrew Martinezhanie HECTOR Primary Care Provider Reason for Visit * Reason Comments Medication Refill Encounter Details Date Type Department Care Team (Late st Contact Info) Description 06/30/2022 Refill [facility] Internal Medicine [address] [place] [address] Souleymane Wilson DO [address] [place] [phone] Medication Refill Social History Tobacco Use Types [...] documented as of this encounter Care Teams Vacuum Plastic Forming Machine Operator Relationship Specialty Start Date End Date Ivana Martinez APRN PCP - General Family Medicine 05/13/22 01/27/24 documented as of this encounter
--- OUTSIDE RECORDS SUMMARY | 2024-09-24 12:13 | XMS_ITS | Patient Health Record ---
Author Organization [facility] [place], Address [address] [place] [address] Reason For Referral No Information Plan Of Treatment No Information Insurance Providers Payer Name Payer Address Payer Phone Subscriber Number Group Number Insured Name Patient Relationship to Insured Coverage Start Date Coverage End Date Medicaid of [place] [address] [place] [phone] [id number] Jay major Self - patient is the insured
--- OUTSIDE RECORDS SUMMARY | 2024-09-24 12:13 | XMS_ITS | Encounter Summary ---
Author Organization [facility] Address [address] [place] [address] Care Team Providers Care Information Technology Coordinator Name Role Phone Ivana Martinez HECTOR Primary Care Provider Reason for Visit * Reason Comments Medication Refill Encounter Details Date Type Department Care Team (Late st Contact Info) Description 06/22/2022 Refill [facility] Internal Medicine [address], [address] [place] [address] Zoya Clayton MD [facility] [address] [phone] Medication Refill Social History Tobacco [...] documented as of this encounter Care Teams Information Technology Coordinator Relationship Specialty Start Date End Date Ivana Martinez APRN PCP - General Family Medicine 05/13/22 01/27/24 documented as of this encounter
--- OUTSIDE RECORDS SUMMARY | 2024-09-24 12:13 | XMS_ITS | Encounter Summary ---
Author Organization [facility] Address [address] [place] [address] Care Team Providers Care Pad Making Machine Operator Name Role Phone Ivana Martinez HECTOR Primary Care Provider Reason for Visit * Reason Onset Date Comments Medication Refill 06/25/2022 Encounter Details Date Type Department Care Team (Late st Contact Info) Description 06/25/2022 Refill [facility] Internal Medicine [address] [place] [address] Zoya Clayton MD [address] [place] [phone] Medication Refill Social History Tobacco Use [...] documented as of this encounter Care Teams Pad Making Machine Operator Relationship Specialty Start Date End Date Ivana Martinez APRN PCP - General Family Medicine 05/13/22 01/27/24 documented as of this encounter
--- OUTSIDE RECORDS SUMMARY | 2024-09-24 12:13 | XMS_ITS | Encounter Summary ---
Author Organization [facility] Address [address] [place] [address] Care Team Providers Care Bologna Lacer Name Role Phone Ivana Martinez HECTOR Primary Care Provider Reason for Visit * Reason Onset Date Comments Medication Refill 08/28/2022 Encounter Details Date Type Department Care Team (Late st Contact Info) Description 08/28/2022 Refill [facility] Internal Medicine [address] [place] [address] Zoya Clayton MD [address] [place] [phone] Medication Refill Social History Tobacco Use [...] documented as of this encounter Care Teams Bologna Lacer Relationship Specialty Start Date End Date Ivana Martinez APRN PCP - General Family Medicine 05/13/22 01/27/24 documented as of this encounter
--- OUTSIDE RECORDS SUMMARY | 2024-09-24 12:13 | XMS_ITS | Encounter Summary ---
Author Organization [facility] Address [address] [place] [address] Care Team Providers Care Car Customizer Name Role Phone Ivana Martinez HECTOR Primary Care Provider Reason for Visit * Reason Onset Date Comments Medication Refill 05/30/2022 Encounter Details Date Type Department Care Team (Late st Contact Info) Description 05/30/2022 Refill [facility] Internal Medicine [address], [address] [place] [address] Zoya Clayton MD [address] [place] [phone] Medication Refill Social History Tobacco Use [...] documented as of this encounter Care Teams Car Customizer Relationship Specialty Start Date End Date Ivana Martinez APRN PCP - General Family Medicine 05/13/22 01/27/24 documented as of this encounter
--- OUTSIDE RECORDS SUMMARY | 2024-09-24 12:15 | XMS_ITS | Encounter Summary ---
Author Organization [facility] Address [address] [place] [address] Care Team Providers Care Clerk Rating Name Role Phone Ivana Martinez HECTOR Primary Care Provider Reason for Visit * Reason Onset Date Comments Medication Refill 12/31/2022 Encounter Details Date Type Department Care Team (Late st Contact Info) Description 12/31/2022 Refill [facility] Internal Medicine [address], 1[address] [place] [address] Zoya Clayton MD [address] [place] [phone] Medication Refill Social History Tobacco Use [...] documented as of this encounter Care Teams Clerk Rating Relationship Specialty Start Date End Date Ivana Martinez APRN PCP - General Family Medicine 05/13/22 01/27/24 documented as of this encounter
--- OUTSIDE RECORDS SUMMARY | 2024-09-24 12:15 | XMS_ITS | Encounter Summary ---
Author Organization [facility] Address [address] [place] [address] Care Team Providers Care Clinical Application Manager Name Role Phone Ivana Martinez SUPERVISOR FELLING BUCKING Primary Care Provider Reason for Visit * Reason Onset Date Comments Medication Refill 12/17/2022 Encounter Details Date Type Department Care Team (Late st Contact Info) Description 12/17/2022 Refill [facility] Dermatology at [address] [employer] [place], [place] [address] Noel Brandon MD [address] [place] [phone] Medication Refill Social History Tobacco Use Types [...] as of this encounter Care Teams Clinical Application Manager Relationship Specialty Start Date End Date Ivana Martinez APRN PCP - General Family Medicine 05/13/22 01/27/24 documented as of this encounter
--- OUTSIDE RECORDS SUMMARY | 2024-09-24 12:15 | XMS_ITS | Encounter Summary ---
Author Organization [facility] Address [address] [place] [address] Care Team Providers Care Financial Operations Analyst Name Role Phone Ivana Martinez APRN Primary Care Provider Encounter Details Date Type Department Care Team (Late st Contact Info) Description 09/03/2022 Transcribed Orders [facility] [address] [place], [place] [id number] Ivana Martinez APRN [address] [facility] [address] [place] [address] Dysuria (Primary Dx) Social History [...] Priority Date/Time Associated Diagnosis Comments URINE MICROSCOPIC ([facility] LMW YH) Routine 09/03/2022 10:54 AM EST Dysuria URINALYSIS-MACROSCOP IC W/REFLEX MICROSCOPIC Routine 09/03/2022 10:54 AM EST Dysuria C. TRACHOMATIS / N. GONORRHOEAE, NAAT ( GH L LMW YH) Routine 09/03/2022 10:54 AM EST Dysuria NEISSERIA GONORRHEA, NAAT (LAB ORDER ONLY) ([facility] L LMW YH) Routine 09/03/2022 10:54 AM EST Dysuria CHLAMYDIA TRACHOMATIS, NAAT (LAB ORDER ONLY) ([facility] L LMW YH) Routine 09/03/2022 10:54 AM EST Dysuria URINE CULTURE Routine 09/03/2022 10:54 AM EST Dysuria documented in this encounter Results * (ABNORMAL) Urine microscopic ([facility] LMW YH) (09/03/2022 10:54 AM EST) RBC/HPF, UA 6(H) 0 - 2 /HPF 09/03/2022 12:05 PM [facility] WBC/HPF, UA 1 0 - 5 /HPF 09/03/2022 12:05 PM [facility] Bacteria, UA Rare None-Rare /HPF 09/03/2022 12:05 PM [facility] Hyaline Casts, UA 1 0 - 3 /LPF 09/03/2022 12:05 PM [facility] Urine Collection / Unknown 09/03/2022 10:54 AM EST 09/03/2022 10:54 AM EST us Ivana Martinez CITRUS PEELER URINE ORDERABLES Final Result [address] [phone] * Chlamydia trachomatis, NAAT ( GH LMW YH) (09/03/2022 10:54 AM EST) Chlamydia DNA Probe Negative Negative 09/04/2022 11:43 AM [facility] Comment:The Aptima Combo2 As say is not intended for the evaluation of suspected sexual abuse or for other medico-legal indications. Specimen Source Urine (Dirty Catch) for DNA Probe 09/04/2022 11:43 AM [facility] Culture URINE SPECIMEN / Unknown Collection / Unknown 09/03/2022 10:54 AM EST 09/03/2022 10:54 AM EST Ivana Martinez APRN MICROBIOLOGY - GENERAL ORDERABLES Final Result Performing Organization Address [facility]/ZIP Co de Phone Number [address] [phone] * Neisseria gonorrhoeae, NAAT ( GH L LMW YH) (09/03/2022 10:54 AM EST) Neisseria gonorrhoeae, DNA Probe Negative Negative 09/04/2022 11:43 AM [facility] Comment:The Aptima Combo2 As say is not intended for the evaluation of suspected sexual abuse or for other medico-legal indications. Specimen Source Urine (Dirty Catch) for DNA Probe 09/04/2022 11:43 AM [facility] Culture URINE SPECIMEN / Unknown Collection / Unknown 09/03/2022 10:54 AM EST 09/03/2022 10:54 AM EST Ivana Martinez APRN MICROBIOLOGY - GENERAL ORDERABLES Final Result Performing Organization Address [facility]/ZIP Co de Phone Number [address] [phone] * (ABNORMAL) Urinalysis-macroscopic w/reflex microscopic (09/03/2022 10:54 AM EST) Clarity, UA Clear Clear 09/03/2022 11:59 AM [facility] Color, UA Yellow Yellow, Colorless 09/03/2022 11:59 AM [facility] Specific [place], UA 1.015 1.005 - 1.030 09/03/2022 11:59 AM [facility] pH, UA 6.5 5.5 - 7.5 09/03/2022 11:59 AM [facility] Protein, UA Negative Negative, Trace 09/03/2022 11:59 AM [facility] Glucose, UA Negative Negative 09/03/2022 11:59 AM [facility] Ketones, UA Negative Negative 09/03/2022 11:59 AM [facility] Blood, UA 2+(A) Negative 09/03/2022 11:59 AM [facility] Bilirubin, UA Negative Negative 09/03/2022 11:59 AM [facility] Leukocytes, UA Negative Negative 09/03/2022 11:59 AM [facility] Nitrite, UA Negative Negative 09/03/2022 11:59 AM [facility] Urobilinogen, UA <2.0 <=2.0 mg/dL 09/03/2022 11:59 AM [facility] Urine Collection / Unknown 09/03/2022 10:54 AM EST 09/03/2022 10:54 AM EST Ivana Martinez CITRUS PEELER URINE ORDERABLES Final Result Performing Organization Address City/[facility]/ZIP Co de Phone Number [address] [phone] * Urine culture (09/03/2022 10:54 AM EST) Urine Culture, Routine No Growth 09/04/2022 1:27 PM [facility] Culture URINE SPECIMEN OBTAINED BY CLEAN CATCH PROCEDURE / Unknown Collection / Unknown 09/03/2022 10:54 AM EST 09/03/2022 10:54 AM EST Ivana Martinez APRN MICROBIOLOGY - GENERAL ORDERABLES Final Result Performing Organization Address [facility]/ZIP Co de Phone Number [address] [phone] documented in this encounter Visit Diagnoses Diagnosis Dysuria- Primary documented in this encounter Additional Health Concerns Assessment Noted Time PHQ-9 Depression Total Score: 1 09/02/19 23 1:40 PM EST documented as of this encounter Care Teams Financial Operations Analyst Relationship Specialty Start Date End Date Ivana Martinez APRN PCP - General Family Medicine 05/13/22 01/27/24 documented as of this encounter
--- OUTSIDE RECORDS SUMMARY | 2024-09-24 12:15 | XMS_ITS | Encounter Summary ---
Author Organization [facility] Address [address] [place] [address] Care Team Providers Care Engine Lathe Set Up Operator Name Role Phone Ivana Martinez APRN Primary Care Provider Reason for Visit * Reason Onset Date Comments Medication Refill 10/20/2022 Encounter Details Date Type Department Care Team (Late st Contact Info) Description 10/20/2022 Refill [facility] Family Medicine [place] [address] [place] [address] Ivana Martinez APRN [address] [place] [phone] Medication Refill Social History Tobacco Use [...] documented as of this encounter Care Teams Engine Lathe Set Up Operator Relationship Specialty Start Date End Date Ivana Martinez APRN PCP - General Family Medicine 05/13/22 01/27/24 documented as of this encounter
[2024-09-28 20:58] LABS: Intrinsic Factor Antibodies Negative (Negative)
[2024-09-29 13:28] LABS: Parietal Cell Antibody <=20.0 Unit (<=20.0)
== END 2024-09-24 11:07 | disposition home or self-care (01) ==
LOC: HO.LAB 11:06
PROVIDERS: PCP Internal Medicine; Visit Provider Physician Assistant Medical
DX: E53.8 Deficiency of other specified B group vitamins (principal)
CPT/HCPCS: 36415; 83516; 86340

== ENCOUNTER 2024-09-30 09:43 | Outpatient (REF) | payer OTHER, SELFPAY ==
--- NOTE | ~2024-09-30 | MR_ITS ---
EXAMINATION: MRI RIGHT KNEE WITHOUT CONTRAST HISTORY: M17.11 - Unilateral primary osteoarthritis, right knee COMPARISON: Correlation is made to plain films of the right knee dated 09/09/2024. TECHNIQUE: Coronal T1 and fat-suppressed proton density, sagittal proton density and fat-suppressed proton density, and axial fat suppressed T2 weighted MR images of the right knee were obtained. FINDINGS: Bone marrow: There is mild subchondral marrow edema involving femoral condyle and medial tibial plateau, likely related to osteoarthritis. Marrow signal intensity is otherwise normal. Joint effusion: There is a trace joint effusion. Bautista's cyst: There is no Bautista's cyst. Articular cartilage: There is mild cartilage loss involving the medial compartment. Muscles/soft tissues: The visualized muscles demonstrate normal signal intensity. There is mild soft tissue edema in the suprapatellar fat pad. There is also mild subcutaneous edema anterior to the proximal tibia. Anterior cruciate ligament: Intact Posterior cruciate ligament: Intact Medial collateral ligament: Intact Lateral collateral ligament: Intact Medial meniscus: Intact Lateral meniscus: Intact Flexor mechanism: The popliteus, gastrocnemius, and hamstring tendons are intact. Quadriceps tendon: Intact Patellar tendon: Intact Patellar retinacula: Intact MR/MR knee RT wo con IMPRESSION: 1. Mild osteoarthritis involving the medial compartment. Trace joint effusion. 2. Mild soft tissue edema in the suprapatellar fat pad. This can be seen in the setting of prefemoral fat pad impingement. Clinical correlation is recommended. Electronically signed by: Hasmukh Kuhn MD 09/30/2024 11:44 AM EST
--- OUTSIDE RECORDS SUMMARY | 2024-09-30 11:08 | XMS_ITS | Encounter Summary ---
Author Organization [facility] Address [address] [place] [address] Care Team Providers Care Human Resources Project Manager Name Role Phone Ivana Martinez APRN Primary Care Provider Encounter Details Date Type Department Care Team (Late st Contact Info) Description 02/26/2023 Orders Only [facility] Family Medicine [address] [place] [address] Ivana Martinez APRN [address] [place] [address] [address] [place] [address] Hypertension, unspecified type; Hypothyroidism, unspecified [...] 4.0 - 11.0 x1000/??L 02/26/2023 3:06 PM [facility] RBC 5.06 4.00 - 6.00 M/??L 02/26/2023 3:06 PM [facility] Hemoglobin 16.4 13.2 - 17.1 g/dL 02/26/2023 3:06 PM [facility] Hematocrit 44.90 38.50 - 50.00 % 02/26/2023 3:06 PM [facility] MCV 88.7 80.0 - 100.0 fL 02/26/2023 3:06 PM [facility] MCH 32.4 27.0 - 33.0 pg 02/26/2023 3:06 PM [facility] MCHC 36.5(H) 31.0 - 36.0 g/dL 02/26/2023 3:06 PM [facility] RDW-CV 12.6 11.0 - 15.0 % 02/26/2023 3:06 PM [facility] Platelets 331 150 - 420 x1000/??L 02/26/2023 3:06 PM [facility] MPV 9.8 8.0 - 12.0 fL 02/26/2023 3:06 PM [facility] Neutrophils 42.8 39.0 - 72.0 % 02/26/2023 3:06 PM [facility] Lymphocytes 37.2 17.0 - 50.0 % 02/26/2023 3:06 PM [facility] Monocytes 9.5 4.0 - 12.0 % 02/26/2023 3:06 PM [facility] Eosinophils 8.8(H) 0.0 - 5.0 % 02/26/2023 3:06 PM [facility] Basophil 1.3 0.0 - 1.4 % 02/26/2023 3:06 PM [facility] Immature Granulocytes 0.4 0.0 - 1.0 % 02/26/2023 3:06 PM EDT [facility] nRBC 0.0 0.0 - 1.0 % 02/26/2023 3:06 PM EDT [facility] ANC(Abs Neutrophil Count) 2.30 2.00 - 7.60 x 1000/??L 02/26/2023 3:06 PM [facility] Absolute Lymphocyte Count 2.00 0.60 - 3.70 x 1000/??L 02/26/2023 3:06 PM EDT [facility] Monocyte Absolute Count 0.51 0.00 - 1.00 x 1000/??L [facility] Eosin[facility] Absolute Count 0.47 0.00 - 1.00 x 1000/??L 02/26/2023 3:06 PM [facility] Basophil Absolute Count 0.07 0.00 - 1.00 x 1000/??L 02/26/2023 3:06 PM [facility] Absolute Immature Granulocyte Count 0.02 0.00 - 0.30 x 1000/??L 02/26/2023 3:06 PM [facility] Absolute nRBC 0.00 0.00 - 1.00 x 1000/??L 02/26/2023 3:06 PM [facility] Blood Venipuncture / Unknown 02/26/2023 11:12 AM EDT 02/26/2023 11:12 AM EDT us Ivana Martinez UI APPLICATION DEVELOPER LAB BLOOD ORDERABLES Fi nal Result [address] [phone] * (ABNORMAL) Comprehensive metabolic panel (02/26/2023 11:12 AM EDT) Sodium 140 136 - 144 mmol/L 02/26/2023 3:26 PM EDT [facility] Potassium 4.1 3.3 - 5.3 mmol/L 02/26/2023 3:26 PM T [facility] Chloride 99 98 - 107 mmol/L 02/26/2023 3:26 PM EDT [facility] CO2 30 20 - 30 mmol/L 02/26/2023 3:26 PM [facility] Anion Gap 11 7 - 17 02/26/2023 3:26 PM [facility] Glucose 96 70 - 100 mg/dL 02/26/2023 3:26 PM [facility] BUN 8 6 - 20 mg/dL 02/26/2023 3:26 PM [facility] Creatinine 0.76 0.40 - 1.30 mg/dL 02/26/2023 3:26 PM [facility] Calcium 10.0 8.8 - 10.2 mg/dL 02/26/2023 3:26 PM [facility] BUN/Creatinine Ratio 10.5 8.0 - 23.0 02/26/2023 3:26 PM [facility] Total Protein 7.7 6.6 - 8.7 g/dL 023 3:26 PM [facility] Albumin 5.0(H) 3.6 - 4.9 g/dL 02/26/2023 3:26 PM [facility] Total Bilirubin 0.4 <=1.2 mg/dL 02/27/20 3:26 PM [facility] Alkaline Phosphatase 57 9 - 122 U/L 02/26/2023 3:26 PM [facility] Alanine Aminotransferase (ALT) 27 9 - 59 U/L 02/26/2023 3:26 PM [facility] Comment:Calcium dobesilate c an cause artificially low ALT results at therapeutic concentrations Aspartate Aminotransferase (AST) 40(H) 10 - 35 U/L 02/26/2023 3:26 PM [facility] Globulin 2.7 2.3 - 3.5 g/dL 02/26/2023 3:26 PM [facility] A/G Ratio 1.9 1.0 - 2.2 02/26/2023 3:26 PM [facility] AST/ALT Ratio 1.5 Reference Range Not Established 02/26/2023 3:26 PM [facility] eGFR (Creatinine) >60 >=60 mL/min/1.73m2 02/26/2023 3:26 PM [facility] Comment: Values < 60 mL/min/1.73 m2 may indicate CKD if present for more than three months AND creatinine is at steady state. The eGFR provides a rough estimate of kidney function. On 03/19/22 all [facility] Clinical Labs and Epic began using a [id number] formula for estimating GFR called CKD-EPI Creatinine 2020. This equation reports eGFR based on creatinine, patient age, clinical sex, and is standardized to a body surface area of 1.73 m2. For the same creatinine, this new race-free eGFR will be lower than prior reported Black eGFR results and higher than prior Non-Black eGFR results. For further guidance, please refer to the CKD: Adult Canteen Manager Signature pathway. Blood Venipuncture / Unknown 02/26/2023 11:12 AM EDT 02/26/2023 11:12 AM EDT Ivana Martinez UI APPLICATION DEVELOPER LAB BLOOD ORDERABLES Fi nal Result [address] [phone] * (ABNORMAL) Hemoglobin A1c (02/26/2023 11:12 AM EDT) [facility] Signature Hemoglobin A1c 5.8(H) 4.0 - 5.6 % 02/26/2023 7:37 PM T [facility] Comment: Hemoglobin A1c values of 5.7-6.4 [...] mg/dL 120 mg/dL 02/26/2023 7:37 PM EDT [facility] Comment: Estimated average glucose (eAG) is a calculated value designed to estimate ??the expected average blood glucose level throughout the day from a single ??measurement of ??glycated hemoglobin A1C (HbA1c) and follows the calculation proposed by the [place] [employer] (Diabetes Care 31: 1-6, 2008). It may have less accuracy in children, women and patients with certain erythrocyte disorders. Blood Venipuncture / Unknown 02/26/2023 11:12 AM EDT 02/26/2023 11:12 AM EDT us Ivana Martinez APRN LAB BLOOD ORDERABLES Fi nal Result Performing Organization Address [facility]/State/[facility] Co de Phone Number [address] [phone] * (ABNORMAL) Lipid panel (02/26/2023 11:12 AM EDT) Cholesterol 180 See Comment mg/dL 02/26/2023 3:26 PM EDT [facility] Comment: Total Cholesterol (mg/dL) ?Adults (>18 years) ? Children (<18 years) Desirable ?<200 ? <170 Borderline-High ?200-239 ?170-199 High ? >=240 ?>=200 ? HDL 62 >=40 mg/dL 02/26/2023 3:26 PM [facility] Triglycerides 161(H) See Comment mg/dL 02/26/2023 3:26 PM [facility] Comment: Triglycerides (mg/dL) ?Adults (>18 years) ? Children (<18 years) Desirable ?<150 ? Not Established Borderline-High ?150-199 ?Not Established High ? 200-499 ?Not Established ?? Chol/HDL Ratio 2.9 0.0 - 5.0 02/26/2023 3:26 PM [facility] LDL Calculated 91 See Comment mg/dL 02/26/2023 3:26 PM [facility] Comment: Effective 01/09/2022, LDL is calculated [...] EDT 02/26/2023 11:12 AM EDT Ivana Martinez UI APPLICATION DEVELOPER LAB BLOOD [place]AB[place] [address], [facility] [phone] * (ABNORMAL) Vitamin D, 25-hydroxy (02/26/2023 11:12 AM EDT) Vitamin X51-Ourujhi 11.1(L) 30.0 - 100.0 ng/mL 02/27/2023 10:42 AM EDT [facility] Comment: Vitamin D Status: ??Results in ng/mL <10.0: ??Deficient 10.0 - 29.9: ??Insufficient 30.0 - 100.0: ??Sufficient >100: ??Toxic Reference ranges established by [facility]. Blood Venipuncture / Unknown 02/26/2023 11:12 AM EDT 02/26/2023 11:12 AM EDT Ivana Petastonle UI APPLICATION DEVELOPER LAB BLOOD ORDERABLES Fi nal Result Performing Organization Address [facility] Co de Phone Number [address] [phone] * (ABNORMAL) Gamma GT (02/26/2023 11:12 AM EDT) GGT 108(H) <48 U/L 02/26/2023 3:26 PM EDT [facility] Blood Venipuncture / Unknown 02/26/2023 11:12 AM EDT 02/26/2023 11:12 AM EDT [facility] UI APPLICATION DEVELOPER LAB BLOOD ORDERABLES Fi nal Result Performing Organization Address [facility] Number [address] [phone] * TSH w/reflex to FT4 ( GH LMW Q YH) (02/26/2023 11:12 AM EDT) Thyroid Stimulating Hormone 2.550 See Comment ??IU/mL 02/26/2023 3:26 PM EDT [facility] Comment: Male & Non- Females: 0.270-4.200 ??IU/mL 1st Trimester: 0.110-3.480 ??IU/mL 2nd Trimester: 0.320-3.850 ??IU/mL Blood Venipuncture / Unknown 02/26/2023 11:12 AM EDT 02/26/2023 11:12 AM EDT Ivana Pettingle UI APPLICATION DEVELOPER LAB BLOOD ORDERABLES Fi nal Result Performing Organization Address [facility] Co de Phone Number [address] [phone] documented in this encounter Visit Diagnoses Diagnosis Hypertension, unspecified type Hypothyroidism, unspecified type LFT elevation Other abnormal blood chemistry Vitamin D deficiency Unspecified vitamin D deficiency documented in this encounter Additional Health Concerns Assessment Noted Time PHQ-9 Depression Total Score: 0 02/27/20 23 10:41 AM EDT documented as of this encounter Care Teams Human Resources Project Manager Relationship Specialty Start Date End Date Ivana Martinez APRN PCP - General Family Medicine 05/13/22 01/27/24 documented as of this encounter
--- OUTSIDE RECORDS SUMMARY | 2024-09-30 11:08 | XMS_ITS | Encounter Summary ---
Author Organization [facility] Address [address] [place] [address] Care Team Providers Care Gear Technician Name Role Phone Unavailable Primary Care Provider Unavailabl e Encounter Details Date Type Department Care Team (Late st Contact Info) Description 08/19/2024 Lab Requisition [facility] - Main Lab [address] [place] [address] Denzel Longo MD [address] [place] [address] [place] [id number] Local infection of the skin and subcutaneous [...] Final Result [facility] [address] [place] [address], documented in this encounter Visit Diagnoses Diagnosis Local infection of the skin and subcutaneous tissue, unspecified documented in this encounter
--- OUTSIDE RECORDS SUMMARY | 2024-09-30 11:08 | XMS_ITS | Encounter Summary ---
Author Organization [facility] Address [address] [place] [address] Care Team Providers Care Building Engineer Name Role Phone Ivana Martinez HECTOR Primary Care Provider Encounter Details Date Type Department Care Team (Late st Contact Info) Description 11/08/2020 Scanned Document [address] [employer] [address] [id number] External, Provider Social History Tobacco Use Types [...] documented as of this encounter Care Teams Building Engineer Relationship Specialty Start Date End Date Ivana Martinez APRN PCP - General Family Medicine 05/13/22 01/27/24 documented as of this encounter
--- OUTSIDE RECORDS SUMMARY | 2024-09-30 11:08 | XMS_ITS | Clinical Summary ---
Author Organization [address] [facility] Address [address] [place] [address] Phone Care Team Providers Care Supervisor Mold Shop Name Role Phone Unavailable Primary Care Provider Unavailabl e Encounters Date Type Department Care Team Description 08/19/2024 Lab Requisition [facility] - Main Lab [address] [facility] [place] [address] Denzel Longo MD Local infection [...] after 4 Weeks 09/16/2024 1:07 PM EST [facility] Skin 08/19/2024 08/19/2024 5:1 5 PM EST Denzel Longo MD LAB MICROBIOLOGY - G ENERAL ORDERABLES Final Result [facility] [address] [place] [address], [place] [phone] from Last 3 Months Insurance MEDICAID - [place]
--- OUTSIDE RECORDS SUMMARY | 2024-09-30 11:08 | XMS_ITS | Clinical Summary ---
Author Organization [address] Address [address] [place] [address] Care Team Providers Care Teacher Dancing Name Role Phone Unavailable Primary Care Provider [...] - 5.6 % 02/26/2023 7:37 PM EDT [facility] Comment: Hemoglobin A1c values of 5.7-6.4 [...] mg/dL 120 mg/dL 02/26/2023 7:37 PM T [facility] Comment: Estimated average glucose (eAG) is a calculated value designed to estimate ??the expected average blood glucose level throughout the day from a single ??measurement of ??glycated hemoglobin A1C (HbA1c) and follows the calculation proposed by the [place] [employer] (Diabetes Care 31: 1-6, 2008). It may have less accuracy in children, women and patients with certain erythrocyte disorders. Blood Venipuncture / Unknown 02/26/2023 11:12 AM EDT 02/26/2023 11:12 AM EDT Ivana Martinez APRN LAB BLOOD ORDERABLES Fi nal Result [address] [phone] * Hepatitis C Ab with reflex to HCV PCR (05/13/2022 10:46 AM EDT) Hepatitis C Ab Initial Result 0.03 S/CO 05/13/2022 1:44 PM EDT [facility] Hepatitis C Ab Interpretation Non-React lilo Non-React lilo 05/13/2022 1:44 PM T [facility] Blood Venipuncture / Unknown 05/13/2022 10:46 AM EDT 05/13/2022 10:46 AM EDT us Ivana Martinez HUMAN RESOURCES SUPERVISOR LAB BLOOD ORDERABLES Fi nal Result [address] [phone] * Colonoscopy (10/12/2021 7:19 AM EST) Colonoscopy Endoscopy Patient Name: Jay Guillermo ? Procedure Date: 10/12/2021 7:19 AM ?Date of : 1985 Age: 36 ? Gender: Male Admit Type: Outpatient ?CSN #: [id number] Note Status: Finalized ?Attending MD: Matthew Huynh [...] oxygen ? saturations were monitored continuously. The [id number] ? [id number] was introduced through the anus and advanced [...] Procedure Code(s): ? --- Professional --- ? 28524, Colonoscopy, flexible; with biopsy, single or ? multiple Diagnosis Code(s): ? --- Professional --- ? K62.89, Other specified diseases of anus and rectum ? R10.84, Generalized abdominal pain ? R19.7, Diarrhea, unspecified CPT copyright 2020 [employer]. All rights reserved. The codes documented in this report are preliminary and upon package sealer machine review may be revised to meet current [...] Recently Relevant to Health Maintenance Insurance [place] Advance Directives Documents on File Type Date Recorded Patient Metal Alloy Scientist Expl anation Healthcare Metal Alloy Scientist/Po wer of Bevel Operator 03/19/2021 4:27 PM 2020
--- OUTSIDE RECORDS SUMMARY | 2024-09-30 11:08 | XMS_ITS | Encounter Summary ---
Author Organization [facility] Address [address] [place] [address] Care Team Providers Care Life Insurance Actuary Name Role Phone Ivana Martinez HECTOR Primary Care Provider Reason for Visit * Reason Comments Medication Refill Encounter Details Date Type Department Care Team (Late st Contact Info) Description 09/29/2020 Refill [facility] Family Medicine [address] [place], [place] [id number] Zoya Clayton MD [address] [address] Medication Refill Social History Tobacco [...] documented as of this encounter Care Teams Life Insurance Actuary Relationship Specialty Start Date End Date Ivana Martinez APRN PCP - General Family Medicine 05/13/22 01/27/24 documented as of this encounter
--- OUTSIDE RECORDS SUMMARY | 2024-09-30 11:08 | XMS_ITS | Encounter Summary ---
Author Organization [facility] Address [address] [place] [address] Care Team Providers Care Information Security Name Role Phone Ivana Martinez HECTOR Primary Care Provider Reason for Visit * Reason Comments Medication Refill Encounter Details Date Type Department Care Team (Late st Contact Info) Description 06/01/2021 Refill [facility] Internal Medicine [address] [place] [address] Zoya Clayton MD [facility] [address] [address] Medication Refill Social History Tobacco [...] as of this encounter Care Teams Information Security Relationship Specialty Start Date End Date Ivana Martinez APRN PCP - General Family Medicine 05/13/22 01/27/24 documented as of this encounter
--- OUTSIDE RECORDS SUMMARY | 2024-09-30 11:09 | XMS_ITS | Encounter Summary ---
Author Organization [facility] Address [address] [place] [address] Care Team Providers Care Television Actor Name Role Phone Ivana Martinez HECTOR Primary Care Provider Reason for Visit * Reason Onset Date Comments Medication Refill 07/12/2021 Encounter Details Date Type Department Care Team (Late st Contact Info) Description 07/12/2021 Refill [facility] Internal Medicine [address], 1st [place] [address] Zoya Clayton MD [address] [place] [phone] Medication Refill Social History Tobacco Use [...] documented as of this encounter Care Teams Television Actor Relationship Specialty Start Date End Date Ivana Martinez APRN PCP - General Family Medicine 05/13/22 01/27/24 documented as of this encounter
--- OUTSIDE RECORDS SUMMARY | 2024-09-30 11:09 | XMS_ITS | Encounter Summary ---
Author Organization [facility] Address [address] [place] [address] Care Team Providers Care Luster Applicator Name Role Phone Ivana Martinez HECTOR Primary Care Provider Reason for Visit * Reason Comments Medication Refill Encounter Details Date Type Department Care Team (Late st Contact Info) Description 12/30/2021 Refill [facility] Gastroenterology [facility] [address] [facility] [address] [place], [place] [phone] Matthew Huynh MD [address] [place] [address] Medication Refill Social History Tobacco [...] documented as of this encounter Care Teams Luster Applicator Relationship Specialty Start Date End Date Ivana Martinez APRN PCP - General Family Medicine 05/13/22 01/27/24 documented as of this encounter
--- OUTSIDE RECORDS SUMMARY | 2024-09-30 11:09 | XMS_ITS | Encounter Summary ---
Author Organization [facility] Address [address] [place] [address] Care Team Providers Care Wound Care Specialist Name Role Phone Ivana Martinez HECTOR Primary Care Provider Encounter Details Date Type Department Care Team (Late st Contact Info) Description 08/27/2021 Scanned Document [address] [facility] [address] [place] [address] Provider, historical . Social History Tobacco [...] documented as of this encounter Care Teams Wound Care Specialist Relationship Specialty Start Date End Date Ivana Martinez APRN PCP - General Family Medicine 05/13/22 01/27/24 documented as of this encounter
--- OUTSIDE RECORDS SUMMARY | 2024-09-30 11:09 | XMS_ITS | Encounter Summary ---
Author Organization [facility] Address [address] [place] [address] Care Team Providers Care Asphalt Plant Laborer Name Role Phone Ivana Martinez HECTOR Primary Care Provider Encounter Details Date Type Department Care Team (Late st Contact Info) Description 11/17/2021 Scanned Document [facility] Internal Medicine [address], 1st Floor [place], [place] [address] Zoya Clayton MD [facility] [address] [phone] Social History Tobacco Use Types [...] documented as of this encounter Care Teams Asphalt Plant Laborer Relationship Specialty Start Date End Date Ivana Martinez APRN PCP - General Family Medicine 05/13/22 01/27/24 documented as of this encounter
--- OUTSIDE RECORDS SUMMARY | 2024-09-30 11:09 | XMS_ITS | Encounter Summary ---
Author Organization [facility] Address [address] [place] [address] Care Team Providers Care Assistive Technology Trainer Name Role Phone Ivana Martinez HECTOR Primary Care Provider Reason for Visit * Reason Onset Date Comments Medication Refill 06/25/2022 Encounter Details Date Type Department Care Team (Late st Contact Info) Description 06/25/2022 Refill [facility] Internal Medicine [address], [address]st [place] [address] Zoya [place] MD [address] [place] [phone] Medication Refill Social History Tobacco Use [...]
--- OUTSIDE RECORDS SUMMARY | 2024-09-30 11:09 | XMS_ITS | Encounter Summary ---
Author Organization [facility] Address [address] [place] [address] Care Team Providers Care Paper And Pulp Mill Worker Name Role Phone Ivana Martinez APRN Primary Care Provider Encounter Details Date Type Department Care Team (Late st Contact Info) Description 05/13/2022 Transcribed Orders [facility] [address] [place], [place] [phone] Ivana Martinez APRN [address] [facility] [address] [place] [address] Hypocalcemia (Primary Dx); Hypertension, unspecified [...] See Comment ng/dL 05/13/2022 2:[address] [facility] Comment: For patients taking levothyroxine, the daily [...] ORDERABLES Fi nal Result Performing Organization Address [facility]/State/[facility] Co de Phone Number [address] [phone] * PTH, intact without calcium (05/13/2022 10:46 AM EDT) Parathyroid Hormone, Intact 35.0 15.0 - 65.0 pg/mL 05/13/2022 12:[address] [facility] Blood Venipuncture / Unknown 05/13/2022 10:46 AM EDT 05/13/2022 10:46 AM EDT Ivanabhavin Martinez CUSTOMS COMPLIANCE DIRECTOR LAB BLOOD ORDERABLES Fi nal Result [facility] [address] [place] [address], [facility] [phone] * (ABNORMAL) Comprehensive metabolic panel (05/13/2022 10:46 AM EDT) Sodium 138 136 - 144 mmol/L 05/13/2022 1:07 PM [facility] Potassium 3.8 3.3 - 5.3 mmol/L 05/13/2022 1:07 PM [facility] Chloride 98 98 - 107 mmol/L 05/13/2022 1:07 PM [facility] CO2 28 20 - 30 mmol/L 05/13/2022 1:07 PM [facility] Anion Gap 12 7 - 17 05/13/2022 1:07 PM [facility] Glucose 105(H) 70 - 100 mg/dL 05/13/2022 1:07 PM [facility] BUN 6 6 - 20 mg/dL 05/13/2022 1:07 PM [facility] Creatinine 0.78 0.40 - 1.30 mg/dL 05/13/2022 1:07 PM [facility] Calcium 9.6 8.8 - 10.2 mg/dL 05/13/2022 1:07 PM [facility] BUN/Creatinine Ratio 7.7(L) 8.0 - 23.0 05/04 1:07 PM [facility] Total Protein 7.5 6.6 - 8.7 g/dL 05/13/2022 1:07 PM [facility] Albumin 5.2(H) 3.6 - 4.9 g/dL 05/13/2022 1:07 PM [facility] Total Bilirubin 0.5 <=1.2 mg/dL 05/13/20 1:07 PM [facility] Alkaline Phosphatase 81 9 - 122 U/L 05/2022 1:07 PM [facility] Alanine Aminotransferase (ALT) 45 9 - 59 U/L 05/13/2022 1:07 PM [facility] Comment:Calcium dobesilate c an cause artificially low ALT results at therapeutic concentrations Aspartate Aminotransferase (AST) 48(H) 10 - 35 U/L 05/13/2022 1:[address] [facility] Globulin 2.3 2.3 - 3.5 g/dL 05/13/2022 1:07 PM [facility] A/G Ratio 2.3(H) 1.0 - 2.2 05/13/2022 1:07 PM [facility] AST/ALT Ratio 1.1 See Comment 05/13/2022 1:07 PM [facility] Comment: Adult with mild elevations of transaminases (< 5 times upper limit of normal): AST/ALT > 2 suggests alcoholic liver injury AST/ALT < 1 suggests non-alcoholic fatty liver disease (NAFLD) [place] (healthy): AST/ALT can be > 3 on day 0 AST/ALT < 2 by day 5 The thresholds provided focus on the most common etiologies of elevated serum transaminase levels and the associated alteration of AST:ALT ratios; they are not intended to exclude other feasible and clinically appropriate possibilities eGFR (Creatinine) >60 >=60 mL/min/1.73 m2 05/13/2022 1:07 PM [facility] Comment:Estimated glomerular filtration rate (eGFR) was [...] 05/13/2022 10:46 AM EDT us Ivana Martinez CUSTOMS COMPLIANCE DIRECTOR LAB BLOOD ORDERABLES Fi nal Result [address] [phone] * (ABNORMAL) CBC auto differential (05/13/2022 10:46 AM EDT) WBC 5.5 4.0 - 11.0 x1000/??L 05/13/2022 12:[address] [facility] RBC 5.19 4.00 - 6.00 M/??L 05/13/2022 12:09 PM [facility] Hemoglobin 16.6 13.2 - 17.1 g/dL 05/13/2022 12:09 PM [facility] Hematocrit 45.70 38.50 - 50.00 % 05/13/2022 12:09 PM [facility] MCV 88.1 80.0 - 100.0 fL 05/13/2022 12:09 PM [facility] MCH 32.0 27.0 - 33.0 pg 05/13/2022 12:09 PM [facility] MCHC 36.3(H) 31.0 - 36.0 g/dL 05/13/2022 12:09 PM [facility] RDW-CV 12.7 11.0 - 15.0 % 05/13/2022 12:09 PM [facility] Platelets 323 150 - 420 x1000/??L 05/13/2022 12:09 PM [facility] MPV 9.5 8.0 - 12.0 fL 05/13/2022 12:09 PM [facility] Neutrophils 36.5(L) 39.0 - 72.0 % 05/13/2022 12:09 PM [facility] Lymphocytes 42.0 17.0 - 50.0 % 05/13/2022 12:09 PM [facility] Monocytes 9.2 4.0 - 12.0 % 05/13/2022 12:09 PM [facility] Eosinophils 11.2(H) 0.0 - 5.0 % 05/13/2022 12:09 PM [facility] Basophil 1.1 0.0 - 1.4 % 05/13/2022 12:09 PM [facility] Immature Granulocytes 0.0 0.0 - 1.0 % 05/13/2022 12:09 PM [facility] nRBC 0.0 0.0 - 1.0 % 05/13/2022 12:09 PM [facility] ANC(Abs Neutrophil Count) 1.99(L) 2.00 - 7.60 x 1000/??L 05/13/2022 12:09 PM [facility] Absolute Lymphocyte Count 2.29 0.60 - 3.70 x 1000/??L 05/13/2022 12:09 PM [facility] Monocyte Absolute Count 0.50 0.00 - 1.00 x 1000/??L 05/13/2022 12:[address] [facility] Eosinophil Absolute Count 0.61 0.00 - 1.00 x 1000/??L 05/13/2022 12:[address] [facility] Basophil Absolute Count 0.06 0.00 - 1.00 x 1000/??L 05/13/2022 12:[address] [facility] Absolute Immature Granulocyte Count 0.00 0.00 - 0.30 x 1000/??L 05/13/2022 12:[address] [facility] Absolute nRBC 0.00 0.00 - 1.00 x 1000/??L 05/13/2022 12:[address] [facility] Blood Venipuncture / Unknown 05/13/2022 10:46 AM EDT 05/13/2022 10:46 AM EDT Ivanabhavin Martinez CUSTOMS COMPLIANCE DIRECTOR LAB BLOOD ORDERABLES Fi nal Result [address] [phone] * (ABNORMAL) Thyroid antibody panel ([facility]) (05/13/2022 10:46 AM EDT) Pathologist [facility] Thyroid Peroxidase Ab 163(H) 0 - 99 IU/mL 05/15/2022 1:[address] [facility] Thyroglobulin Ab <10.0 0 - 125 IU/mL 05/15/2022 1:[address] [facility] Blood Venipuncture / Unknown 05/13/2022 10:46 AM EDT 05/13/2022 10:46 AM EDT Ivanabhavin Martinez CUSTOMS COMPLIANCE DIRECTOR LAB BLOOD ORDERABLES Fi nal Result [address] [phone] * (ABNORMAL) THYROID PEROXIDASE ANTIBODY (05/13/2022 10:46 AM EDT) Thyroid Peroxidase Ab 163(H) 0 - 99 IU/mL 05/15/2022 1:[address] [facility] Blood Venipuncture / Unknown 05/13/2022 10:46 AM EDT 05/13/2022 10:46 AM EDT Ivana Martinez CUSTOMS COMPLIANCE DIRECTOR LAB BLOOD ORDERABLES Fi nal Result Performing Organization Address City/State/[facility] Co de Phone Number [address] [phone] * TESTOSTERONE, TOTAL (BH GH L LMW YH) (05/13/2022 10:46 AM EDT) Pathologist [facility] Testosterone, Total 302 229 - 902 ng/dL 05/13/2022 1:[address] [facility] Comment: The following testosterone reference ranges have [...] [place]. J Clin Endocrinol Metab. 2017 Nov 1;102(4):5962-9792. Blood Venipuncture / Unknown 05/13/2022 10:46 AM EDT 05/13/2022 10:46 AM EDT Ivanabhavin Martinez CUSTOMS COMPLIANCE DIRECTOR LAB BLOOD ORDERABLES Fi nal Result [address] [phone] * (ABNORMAL) Gamma GT (05/13/2022 10:46 AM EDT) GGT 92(H) <48 U/L 05/13/2022 12:[address] [facility] Blood Venipuncture / Unknown 05/13/2022 10:46 AM EDT 05/13/2022 10:46 AM EDT Ivana Exo Labslilibeth CUSTOMS COMPLIANCE DIRECTOR LAB BLOOD ORDERABLES Fi nal Result Performing Organization Address [facility] de Phone Number [address] [phone] * (ABNORMAL) Vitamin D, 25-hydroxy (05/13/2022 10:46 AM EDT) Vitamin G47-Aqvmgwo 16.9(L) 30.0 - 100.0 ng/mL 05/13/2022 1:[address] [facility] Comment: Vitamin D Status: ??Results in ng/mL <10.0: ??Deficient 10.0 - 29.9: ??Insufficient 30.0 - 100.0: ??Sufficient >100: ??Toxic Reference ranges established by [employer]. Blood Venipuncture / Unknown 05/13/2022 10:46 AM EDT 05/13/2022 10:46 AM EDT Ivana Martinez CUSTOMS COMPLIANCE DIRECTOR LAB BLOOD ORDERABLES Fi nal Result Performing Organization Address [facility]/ZIP [place] de Phone Number [address] [phone] * Hepatitis C Ab with reflex to HCV PCR (05/13/2022 10:46 AM EDT) Hepatitis C Ab Initial Result 0.03 S/CO 05/13/2022 1:[address] [facility] Hepatitis C Ab Interpretation Non-React lilo Non-React lilo 05/13/2022 1:[address] [facility] Blood Venipuncture / Unknown 05/13/2022 10:46 AM EDT 05/13/2022 10:46 AM EDT [facility] CUSTOMS COMPLIANCE DIRECTOR LAB BLOOD ORDERABLES Fi nal Result Performing Organization Address [facility] de Phone [address] [phone] * (ABNORMAL) Lipid panel (05/13/2022 10:46 AM EDT) [facility] Cholesterol 185 See Comment mg/dL 05/13/2022 1:[address] [facility] Comment: Total Cholesterol (mg/dL) ?Adults (>18 years) ? Children (<18 years) Desirable ?<200 ? <170 Borderline-High ?200-239 ?170-199 High ? >=240 ?>=200 ? HDL 63 >=40 mg/dL 05/13/2022 1:07 PM [facility] Triglycerides 268(H) See Comment mg/dL 05/13/2022 1:07 PM [facility] Comment: Triglycerides (mg/dL) ?Adults (>18 years) ? Children (<18 years) Desirable ?<150 ? Not Established Borderline-High ?150-199 ?Not Established High ? 200-499 ?Not Established ?? Chol/HDL Ratio 2.9 0.0 - 5.0 05/13/2022 1:07 PM [facility] LDL Calculated 79 See Comment mg/dL 05/13/2022 1:07 PM [facility] Comment: Effective 01/09/2022, LDL is calculated [...] 05/13/2022 10:46 AM EDT us Ivana Martinez CUSTOMS COMPLIANCE DIRECTOR LAB BLOOD ORDERABLES Fi nal Result [address] [phone] * (ABNORMAL) Vitamin B12 (05/13/2022 10:46 AM EDT) Vitamin B12 168(L) 232 - 1,245 pg/mL 05/13/2022 1:[address] [facility] Blood Venipuncture / Unknown 05/13/2022 10:46 AM EDT 05/13/2022 10:46 AM EDT Ivana Martinez CUSTOMS COMPLIANCE DIRECTOR LAB BLOOD ORDERABLES Fi nal Result Performing Organization Address [facility]/State/ZIP [place] [address], [facility] [phone] * (ABNORMAL) Hemoglobin A1c (05/13/2022 10:46 AM EDT) Hemoglobin A1c 5.7(H) 4.0 - 5.6 % 05/13/2022 1:[address] [facility] Comment: Hemoglobin A1c [...] mg/dL 117 mg/dL 05/13/2022 1:[address] [facility] Comment: Estimated average glucose (eAG) is a calculated value designed to estimate ??the expected average blood glucose level throughout the day from a single ??measurement of ??glycated hemoglobin A1C (HbA1c) and follows the calculation proposed by the [place] [employer] (Diabetes Care 31: 1-6, 2008). It may have less accuracy in children, women and patients with certain erythrocyte disorders. Blood Venipuncture / Unknown 05/13/2022 10:46 AM EDT 05/13/2022 10:46 AM EDT Ivanaaldo Martinez CUSTOMS COMPLIANCE DIRECTOR LAB BLOOD ORDERABLES Fi nal Result [address] [phone] * (ABNORMAL) TSH w/reflex to FT4 (BH GH LMW Q YH) (05/13/2022 10:46 AM EDT) Thyroid Stimulating Hormone 4.470(H) See Comment ??IU/mL 05/13/2022 1:[address] [facility] Comment: Male & Non- Females: 0.270-4.200 ??IU/mL 1st Trimester: 0.110-3.480 ??IU/mL 2nd Trimester: 0.320-3.850 ??IU/mL Blood Venipuncture / Unknown 05/13/2022 10:46 AM EDT 05/13/2022 10:46 AM EDT Ivana Martinez APRN LAB BLOOD ORDERABLES Fi nal Result Performing Organization Address City/[facility] Co de Phone Number [address] [phone] documented in this encounter Visit Diagnoses Diagnosis [...] documented as of this encounter Care Teams Paper And Pulp Mill Worker Relationship Specialty Start Date End Date Ivana Martinez APRN PCP - General Family Medicine 05/13/22 01/27/24 documented as of this encounter
--- OUTSIDE RECORDS SUMMARY | 2024-09-30 11:09 | XMS_ITS | Encounter Summary ---
Author Organization [facility] Address [address] [place] [address] Care Team Providers Care Profiling Machine Set Up Operator Name Role Phone Ivana Martinez HECTOR Primary Care Provider Reason for Visit * Reason Comments Medication Refill Encounter Details Date Type Department Care Team (Late st Contact Info) Description 04/01/2022 Refill NEM Internal Medicine [address] [place] [address] Zoya [place] MD [facility] [address] [phone] Medication Refill Social History Tobacco [...] documented as of this encounter Care Teams Profiling Machine Set Up Operator Relationship Specialty Start Date End Date Ivana Martinez APRN PCP - General Family Medicine 05/13/22 01/27/24 documented as of this encounter
--- OUTSIDE RECORDS SUMMARY | 2024-09-30 11:09 | XMS_ITS | Encounter Summary ---
Author Organization [facility] Address [address] [place] [address] Care Team Providers Care Grinder Set Up Operator Centerless Name Role Phone Ivana Martinez HECTOR Primary Care Provider Encounter Details Date Type Department Care Team (Late st Contact Info) Description 11/13/2020 Scanned Document NEM Internal Medicine [address], [address]st [address] [place], [place] [address] Zoya [place] MD [facility] [address] [address] Social History Tobacco Use Types [...] documented as of this encounter Care Teams Grinder Set Up Operator Centerless Relationship Specialty Start Date End Date Ivana Martinez APRN PCP - General Family Medicine 05/13/22 01/27/24 documented as of this encounter
--- OUTSIDE RECORDS SUMMARY | 2024-09-30 11:09 | XMS_ITS | Encounter Summary ---
Author Organization [facility] Address [address] [place] [address] Care Team Providers Care Electric Blasting Cap Assembler Name Role Phone Ivana Martinez HECTOR Primary Care Provider Reason for Visit * Reason Onset Date Comments Medication Refill 05/02/2022 Encounter Details Date Type Department Care Team (Late st Contact Info) Description 05/02/[address] [facility] Internal Medicine [address] [place] [address] Zoya Clayton MD [address] [place] [phone] Medication Refill Social History Tobacco Use [...] documented as of this encounter Care Teams Electric Blasting Cap Assembler Relationship Specialty Start Date End Date Ivana Martinez APRN PCP - General Family Medicine 05/13/22 01/27/24 documented as of this encounter
--- OUTSIDE RECORDS SUMMARY | 2024-09-30 11:09 | XMS_ITS | Encounter Summary ---
Author Organization [facility] Address [address] [place] [address] Care Team Providers Care Cyber Security Analyst Name Role Phone Ivana Martinez HECTOR Primary Care Provider Reason for Visit * Reason Onset Date Comments Medication Refill 10/29/2021 Encounter Details Date Type Department Care Team (Late st Contact Info) Description 10/29/2021 Refill [facility] Internal Medicine [address], 1[address] [place] [address] Zoya Clayton MD [address] [place] [phone] Medication Refill Social History Tobacco Use [...] documented as of this encounter Care Teams Cyber Security Analyst Relationship Specialty Start Date End Date Ivana Martinez APRN PCP - General Family Medicine 05/13/22 01/27/24 documented as of this encounter
--- OUTSIDE RECORDS SUMMARY | 2024-09-30 11:09 | XMS_ITS | Encounter Summary ---
Author Organization [facility] Address [address] [place] [address] Care Team Providers Care Turf And Grounds Supervisor Name Role Phone Ivana Martinez APRN Primary Care Provider Encounter Details Date Type Department Care Team (Late st Contact Info) Description 05/05/2019 Scanned Document Scarlet Espinosa M.D. [address] [facility] [address] [place] [address] Jeffy Espinosa MD [address] [place] [phone] Social History Tobacco Use Types Packs/Day [...] documented as of this encounter Care Teams Turf And Grounds Supervisor Relationship Specialty Start Date End Date Ivana Martinez APRN PCP - General Family Medicine 05/13/22 01/27/24 documented as of this encounter
--- OUTSIDE RECORDS SUMMARY | 2024-09-30 11:09 | XMS_ITS | Encounter Summary ---
Author Organization [facility] Address [address] [place] [phone] Care Team Providers Care Filling Machine Set Up Mechanic Name Role Phone Andrew Martinezhanie HECTOR Primary Care Provider Reason for Visit * Reason Comments Medication Refill Encounter Details Date Type Department Care Team (Late st Contact Info) Description 06/30/2022 Refill [facility] Internal Medicine [address], [address] [place] [address] Souleymane Wilson DO [address] [place] [phone] Medication Refill Social History Tobacco Use Types [...] documented as of this encounter Care Teams Filling Machine Set Up Mechanic Relationship Specialty Start Date End Date Ivana Martinez APRN PCP - General Family Medicine 05/13/22 01/27/24 documented as of this encounter
--- OUTSIDE RECORDS SUMMARY | 2024-09-30 11:09 | XMS_ITS | Encounter Summary ---
Author Organization [facility] Address [address] [place] [address] Care Team Providers Care Data Warehousing Architect Name Role Phone Ivana Martinez APRN Primary Care Provider Encounter Details Date Type Department Care Team (Late st Contact Info) Description 05/06/2019 Scanned Document Scarlet Espinosa M.D. 22 [facility] [address] [place] [address] Jeffy Espinosa MD [address] [place] [phone] Social History Tobacco Use Types Packs/Day [...] as of this encounter Care Teams Data Warehousing Architect Relationship Specialty Start Date End Date Ivana Martinez APRN PCP - General Family Medicine 05/13/22 01/27/24 documented as of this encounter
--- OUTSIDE RECORDS SUMMARY | 2024-09-30 11:09 | XMS_ITS | Patient Health Record ---
Author Organization [facility], Address [address] [place] [address] Reason For Referral No Information Plan Of Treatment No Information Insurance Providers Payer Name Payer Address Payer Phone Subscriber Number Group Number Insured Name Patient Relationship to Insured Coverage Start Date Coverage End Date Medicaid of [place] [address] [place] [address] [id number] Jay major Self - patient is the insured
--- OUTSIDE RECORDS SUMMARY | 2024-09-30 11:09 | XMS_ITS | Encounter Summary ---
Author Organization [facility] Address [address] [place] [address] Care Team Providers Care Channeling Machine Operator Name Role Phone Ivana Martinez HECTOR Primary Care Provider Reason for Visit * Reason Onset Date Comments Medication Refill 05/30/2022 Encounter Details Date Type Department Care Team (Late st Contact Info) Description 05/30/2022 Refill [facility] Internal Medicine [address], 1[address] [place] [address] Zoya Clayton MD [address] [place] [phone] Medication Refill Social History Tobacco Use [...] documented as of this encounter Care Teams Channeling Machine Operator Relationship Specialty Start Date End Date Ivana Martinez APRN PCP - General Family Medicine 05/13/22 01/27/24 documented as of this encounter
--- OUTSIDE RECORDS SUMMARY | 2024-09-30 11:09 | XMS_ITS | Encounter Summary ---
Author Organization [facility] Address [address] [place] [address] Care Team Providers Care Foreign Policy Officer Name Role Phone Pcp, No Primary Care Provider Unavailabl e Reason for Referral * Diagnostic Imaging (Routine) - Closed Specialty Diagnoses / Procedures Referred By Christian chatman Referred To Contact Diagnoses Microhematuria Procedures CT Urogram w w/o contrast w/3D Matthew Rodney MD [address] [place] [id number] Referral ID Status Reason Start Date Expiration Date Visits Re quested Visits Authorized [id number] Closed 10/08/2022 12/11/2022 1 1 Reason for Visit * Diagnostic Imaging (Routine) - Closed Specialty Diagnoses / Procedures Referred By Christian chatman Referred To Contact Diagnoses Microhematuria Procedures CT Urogram w w/o contrast w/3D Matthew Rodney MD [address] [place] [id number] Referral ID Status Reason Start Date Expiration Date Visits Re quested Visits Authorized [id number] Closed 10/08/2022 12/11/2022 1 1 Encounter Details Date Type Department Care Team ([facility] st Contact Info) Description 10/21/2022 2:14 PM EDT Hospital Encounter [facility] [address] [place] [phone] Microhematuria Social History Tobacco Use Types Packs/Day [...] mL documented in this encounter Care Teams Foreign Policy Officer Relationship Specialty Start Date End Date Pcp, No PCP - General 10/21/22 documented as of this encounter
--- OUTSIDE RECORDS SUMMARY | 2024-09-30 11:09 | XMS_ITS | Clinical Summary ---
Author Organization [facility] Address [address] [place] [address] Care Team Providers Care Roofer Helper Name Role Phone Pcp, No Primary [...] age to complete this topic Care Teams Roofer Helper Relationship Specialty Start Date End Date Pcp, No PCP - General 10/21/22
--- OUTSIDE RECORDS SUMMARY | 2024-09-30 11:09 | XMS_ITS | Encounter Summary ---
Author Organization [facility] Address [address] [place] [address] Care Team Providers Care Compensation And Benefits Administrator Name Role Phone JohannaAndrew mcelroyhanie HECTOR Primary Care Provider Encounter Details Date Type Department Care Team (Late st Contact Info) Description 08/18/2021 [facility] Encounter [facility] Internal Medicine [address] [place] [address] Leny Hernandez MD Social History Tobacco Use [...] documented as of this encounter Care Teams Compensation And Benefits Administrator Relationship Specialty Start Date End Date Ivana Martinez APRN PCP - General Family Medicine 05/13/22 01/27/24 documented as of this encounter
--- OUTSIDE RECORDS SUMMARY | 2024-09-30 11:09 | XMS_ITS | Encounter Summary ---
Author Organization [facility] Address [address] [place] [address] Care Team Providers Care Coat Baster Name Role Phone Ivana Martinez HECTOR Primary Care Provider Reason for Visit * Reason Onset Date Comments Medication Refill 08/28/2022 Encounter Details Date Type Department Care Team (Late st Contact Info) Description 08/28/2022 Refill [facility] Internal Medicine [address], [address] [place] [address] Zoya Clayton MD [address] [place] [phone] Medication Refill Social History Tobacco Use [...] documented as of this encounter Care Teams Coat Baster Relationship Specialty Start Date End Date Ivana Martinez APRN PCP - General Family Medicine 05/13/22 01/27/24 documented as of this encounter
--- OUTSIDE RECORDS SUMMARY | 2024-09-30 11:09 | XMS_ITS | Encounter Summary ---
Author Organization [facility] Address [address] [place] [address] Care Team Providers Care Small Craft Operator Name Role Phone Ivana Martinez HECTOR Primary Care Provider Encounter Details Date Type Department Care Team (Late st Contact Info) Description 09/26/2021 Scanned Document [facility] Internal Medicine [address] [place], [place] [address] Zoya Clayton MD [facility] [address] [phone] Social History Tobacco Use Types [...] documented as of this encounter Care Teams Small Craft Operator Relationship Specialty Start Date End Date Ivana Martinez APRN PCP - General Family Medicine 05/13/22 01/27/24 documented as of this encounter
--- OUTSIDE RECORDS SUMMARY | 2024-09-30 11:09 | XMS_ITS | Encounter Summary ---
Author Organization [facility] Address [address] [place] [address] Care Team Providers Care Sign Hanger Supervisor Name Role Phone Ivana Martinez HECTOR Primary Care Provider Reason for Visit * Reason Comments Medication Refill Encounter Details Date Type Department Care Team (Late st Contact Info) Description 06/20/2021 Refill [facility] Internal Medicine [address], [address]st [place] [address] Zoya Clayton MD [facility] [address] [phone] Medication Refill Social History [...] documented as of this encounter Care Teams Sign Hanger Supervisor Relationship Specialty Start Date End Date Ivana Martinez APRN PCP - General Family Medicine 05/13/22 01/27/24 documented as of this encounter
--- OUTSIDE RECORDS SUMMARY | 2024-09-30 11:09 | XMS_ITS | Encounter Summary ---
Author Organization [facility] Address [address] [place] [address] Care Team Providers Care Knowledge Management Consultant Name Role Phone Ivana Martinez HECTOR Primary Care Provider Reason for Visit * Reason Comments Medication Refill Encounter Details Date Type Department Care Team (Late st Contact Info) Description 06/22/2022 Refill [facility] Internal Medicine [address], [address]st [place] [address] Zoya Clayton MD [facility] [address] [phone] Medication Refill Social History Tobacco [...] documented as of this encounter Care Teams Knowledge Management Consultant Relationship Specialty Start Date End Date Ivana Martinez APRN PCP - General Family Medicine 05/13/22 01/27/24 documented as of this encounter
--- OUTSIDE RECORDS SUMMARY | 2024-09-30 11:09 | XMS_ITS | Encounter Summary ---
Author Organization [facility] Address [address] [place] [address] Care Team Providers Care Geology Teacher Name Role Phone Ivana Martinez HECTOR Primary Care Provider Reason for Visit * Reason Onset Date Comments Medication Refill 02/26/2022 Encounter Details Date Type Department Care Team (Late st Contact Info) Description 02/26/2022 Refill [facility] Internal Medicine [address], 1st [place] [address] Zoya Clayton MD [address] [place] [phone] Medication Refill Social History Tobacco Use [...] documented as of this encounter Care Teams Geology Teacher Relationship Specialty Start Date End Date Ivana Martinez APRN PCP - General Family Medicine 05/13/22 01/27/24 documented as of this encounter
--- OUTSIDE RECORDS SUMMARY | 2024-09-30 11:09 | XMS_ITS | Encounter Summary ---
Author Organization [facility] Address [address] [place] [address] Care Team Providers Care Paint Tester Name Role Phone Ivana Martinez HECTOR Primary Care Provider Encounter Details Date Type Department Care Team (Late st Contact Info) Description 08/22/2021 Scanned Document [facility] Internal Medicine [address], 1st [address] [place], [place] [address] Zoya Clayton MD [address] [phone] Social History Tobacco Use [...] as of this encounter Care Teams Paint Tester Relationship Specialty Start Date End Date Ivana Martinez APRN PCP - General Family Medicine 05/13/22 01/27/24 documented as of this encounter
--- OUTSIDE RECORDS SUMMARY | 2024-09-30 11:09 | XMS_ITS | Encounter Summary ---
Author Organization [facility] Address [address] [place] [address] Care Team Providers Care Roto Rooter Operator Name Role Phone Andrew Martinezhanie HECTOR Primary Care Provider Encounter Details Date Type Department Care Team (Late st Contact Info) Description 09/26/2021 Scanned Document [facility] Internal Medicine [address], [address]st [address] [place], [place] [address] External, Provider Social History Tobacco Use Types [...] documented as of this encounter Care Teams Roto Rooter Operator Relationship Specialty Start Date End Date Ivana Martinez APRN PCP - General Family Medicine 05/13/22 01/27/24 documented as of this encounter
--- OUTSIDE RECORDS SUMMARY | 2024-09-30 11:09 | XMS_ITS | Encounter Summary ---
Author Organization [facility] Address [address] [place] [address] Care Team Providers Care Service Department Manager Name Role Phone Pcp, No Primary Care Provider Unavailabl e Encounter Details Date Type Department Care Team (Late st Contact Info) Description 10/12/2022 Scanned Document [facility] [address] [phone] Matthew Rodney MD [address] [place] [address] Social History Tobacco Use Types Packs/Day Years Used Date Smoking Tobacco: Never Assessed Sex and Gender Information Value Date Recorded Sex Assigned at Not on file Gender Identity Not on file Sexual Orientation Not on file documented as of this encounter Plan of Treatment Not on file documented as of this encounter Visit Diagnoses Not on filedocumented in this encounter Care Teams Service Department Manager Relationship Specialty Start Date End Date Pcp, No PCP - General 10/21/22 documented as of this encounter
--- OUTSIDE RECORDS SUMMARY | 2024-09-30 11:09 | XMS_ITS | Encounter Summary ---
Author Organization [facility] Address [address] [place] [address] Care Team Providers Care Claims Adjuster Crop Name Role Phone Ivana Martinez HECTOR Primary Care Provider Encounter Details Date Type Department Care Team (Late st Contact Info) Description 10/12/2021 Scanned Document [facility] G[facility] [address] [place] [address] Matthew Huynh MD [address] [place] [address] Social History Tobacco Use Types [...] documented as of this encounter Care Teams Claims Adjuster Crop Relationship Specialty Start Date End Date Ivana Martinez APRN PCP - General Family Medicine 05/13/22 01/27/24 documented as of this encounter
--- OUTSIDE RECORDS SUMMARY | 2024-09-30 11:09 | XMS_ITS | Encounter Summary ---
Author Organization [facility] Address [address] [place] [address] Care Team Providers Care High School Social Science Teacher Name Role Phone JohannaAndrew mcelroyhanie HECTOR Primary Care Provider Encounter Details Date Type Department Care Team (Late st Contact Info) Description 11/19/2021 Scanned Document [facility] Internal Medicine [address], 1[address] [place], [place] [address] Provider, historical . Social History Tobacco Use [...] RIGHT AP INTERNA L AP EXTERNAL AXILLARY ([facility] Y) Routine 11/17/2021 documented in this [...] documented as of this encounter Care Teams High School Social Science Teacher Relationship Specialty Start Date End Date Ivana Martinez APRN PCP - General Family Medicine 05/13/22 01/27/24 documented as of this encounter
--- OUTSIDE RECORDS SUMMARY | 2024-09-30 11:10 | XMS_ITS | Encounter Summary ---
Author Organization [facility] Address [address] [place] [address] Care Team Providers Care Airplane Tester Name Role Phone Ivana Martinez APRN Primary Care Provider Reason for Visit * Reason Onset Date Comments Medication Refill 10/20/2022 Encounter Details Date Type Department Care Team (Late st Contact Info) Description 10/20/2022 Refill [facility] Family Medicine [place] [email or web address] [place] [address] Ivana Martinez APRN [address] [place] [phone] Medication Refill Social History Tobacco Use [...] documented as of this encounter Care Teams Airplane Tester Relationship Specialty Start Date End Date Ivana Martinez APRN PCP - General Family Medicine 05/13/22 01/27/24 documented as of this encounter
--- OUTSIDE RECORDS SUMMARY | 2024-09-30 11:10 | XMS_ITS | Encounter Summary ---
Author Organization [facility] Address [address] [place] [address] Care Team Providers Care Mission Assessment Specialist Name Role Phone Ivana Martinez APRN Primary Care Provider Encounter Details Date Type Department Care Team (Late st Contact Info) Description 09/03/2022 Transcribed Orders [facility] [address] [place], [place] [address] Ivana Martinez APRN [address] [facility] [address] [place] [address] Dysuria (Primary Dx) Social History [...] Priority Date/Time Associated Diagnosis Comments URINE MICROSCOPIC ([facility]) Routine 09/03/2022 10:54 AM EST Dysuria URINALYSIS-MACROSCOP IC W/REFLEX MICROSCOPIC Routine 09/03/2022 10:54 AM EST Dysuria C. TRACHOMATIS / N. GONORRHOEAE, NAAT ( [facility] L [facility]W [facility]) Routine 09/03/2022 10:54 AM EST Dysuria NEISSERIA GONORRHEA, NAAT (LAB ORDER ONLY) ([facility] L [facility]) Routine 09/03/2022 10:54 AM EST Dysuria CHLAMYDIA TRACHOMATIS, NAAT (LAB ORDER ONLY) ([facility] L [facility]) Routine 09/03/2022 10:54 AM EST Dysuria URINE CULTURE Routine 09/03/2022 10:54 AM EST Dysuria documented in this encounter Results * (ABNORMAL) Urine microscopic ([facility]) (09/03/2022 10:54 AM EST) RBC/HPF, UA 6(H) 0 - 2 /HPF 09/03/2022 12:05 PM [facility] WBC/HPF, UA 1 0 - 5 /HPF 09/03/2022 12:05 PM [facility] Bacteria, UA Rare None-Rare /HPF 09/03/2022 12:05 PM [facility] Hyaline Casts, UA 1 0 - 3 /LPF 09/03/2022 12:05 PM [facility] Urine Collection / Unknown 09/03/2022 10:54 AM EST 09/03/2022 10:54 AM EST us Ivana Martinez MANAGER FINE URINE ORDERABLES Final Result [address] [phone] * Chlamydia trachomatis, NAAT ( [facility]) (09/03/2022 10:54 AM EST) Chlamydia DNA Probe Negative Negative 09/04/2022 11:43 AM [facility] Comment:The Aptima Combo2 As say is not intended for the evaluation of suspected sexual abuse or for other medico-legal indications. Specimen Source Urine (Dirty Catch) for DNA Probe 09/04/2022 11:43 AM [facility] Culture URINE SPECIMEN / Unknown Collection / Unknown 09/03/2022 10:54 AM EST 09/03/2022 10:54 AM EST Ivana Martinez APRN MICROBIOLOGY - GENERAL ORDERABLES Final Result Performing Organization Address [facility]/ZIP Co de Phone Number [address] [phone] * Neisseria gonorrhoeae, NAAT ( GH L [facility]) (09/03/2022 10:54 AM EST) Neisseria gonorrhoeae, DNA Probe Negative Negative 09/04/2022 11:43 AM [facility] Comment:The Aptima Combo2 As say is not intended for the evaluation of suspected sexual abuse or for other medico-legal indications. Specimen Source Urine (Dirty Catch) for DNA Probe 09/04/2022 11:43 AM [facility] Culture URINE SPECIMEN / Unknown Collection / Unknown 09/03/2022 10:54 AM EST 09/03/2022 10:54 AM EST Ivana Martinez APRN MICROBIOLOGY - GENERAL ORDERABLES Final Result Performing Organization Address [facility]/ZIP Co de Phone Number [address] [phone] * (ABNORMAL) Urinalysis-macroscopic w/reflex microscopic (09/03/2022 10:54 AM EST) Clarity, UA Clear Clear 09/03/2022 11:59 AM [facility] Color, UA Yellow Yellow, Colorless 09/03/2022 11:59 AM [facility] Specific [place], UA 1.015 1.005 - 1.030 09/03/2022 11:59 AM [facility] pH, UA 6.5 5.5 - 7.5 09/03/2022 11:59 AM [facility] Protein, UA Negative Negative, Trace 09/03/2022 11:59 AM [facility] Glucose, UA Negative Negative 09/03/2022 11:59 AM [facility] Ketones, UA Negative Negative 09/03/2022 11:59 AM [facility] Blood, UA 2+(A) Negative 09/03/2022 11:59 AM [facility] Bilirubin, UA Negative Negative 09/03/2022 11:59 AM [facility] Leukocytes, UA Negative Negative 09/03/2022 11:59 AM [facility] Nitrite, UA Negative Negative 09/03/2022 11:59 AM [facility] Urobilinogen, UA <2.0 <=2.0 mg/dL 09/03/2022 11:59 AM [facility] Urine Collection / Unknown 09/03/2022 10:54 AM EST 09/03/2022 10:54 AM EST Ivana Martinez MANAGER FINE URINE ORDERABLES Final Result Performing Organization Address City/[facility]/ZIP Co de Phone Number [address] [phone] * Urine culture (09/03/2022 10:54 AM EST) Urine Culture, Routine No Growth 09/04/2022 1:27 PM [facility] Culture URINE SPECIMEN OBTAINED BY CLEAN CATCH PROCEDURE / Unknown Collection / Unknown 09/03/2022 10:54 AM EST 09/03/2022 10:54 AM EST Ivana Martinez APRN MICROBIOLOGY - GENERAL ORDERABLES Final Result Performing Organization Address [facility]/ZIP Co de Phone Number [address] [phone] documented in this encounter Visit Diagnoses Diagnosis Dysuria- Primary documented in this encounter Additional Health Concerns Assessment Noted Time PHQ-9 Depression Total Score: 1 09/02/19 23 1:40 PM EST documented as of this encounter Care Teams Mission Assessment Specialist Relationship Specialty Start Date End Date Ivana Martinez APRN PCP - General Family Medicine 05/13/22 01/27/24 documented as of this encounter
--- OUTSIDE RECORDS SUMMARY | 2024-09-30 11:10 | XMS_ITS | Encounter Summary ---
Author Organization [facility] Address [address] [place] [address] Care Team Providers Care Supervisor Rework Name Role Phone Ivana Martinez APRN Primary Care Provider Encounter Details Date Type Department Care Team (Late st Contact Info) Description 09/03/2022 Orders Only [facility] Family Medicine [address] [place] [address] Ivana Martinez APRN [address] [place] [address] [address] [place] [address] Hypertension, unspecified type; Hypercalcemia; Elevated [...] 136 - 144 mmol/L 09/03/2022 12:57 PM [facility] Potassium 4.0 3.3 - 5.3 mmol/L 09/03/2022 12:57 PM [facility] Chloride 97(L) 98 - 107 mmol/L 09/03/2022 12:57 PM [facility] CO2 29 20 - 30 mmol/L 09/03/2022 12:57 PM [facility] Anion Gap 12 7 - 17 09/03/2022 12:57 PM [facility] Glucose 116(H) 70 - 100 mg/dL 09/03/2022 12:57 PM [facility] BUN 8 6 - 20 mg/dL 09/03/2022 12:57 PM [facility] Creatinine 0.86 0.40 - 1.30 mg/dL 09/03/2022 12:57 PM [facility] Calcium 9.5 8.8 - 10.2 mg/dL 09/03/2022 12:57 PM [facility] BUN/Creatinine Ratio 9.3 8.0 - 23.0 08/06 12:57 PM [facility] Total Protein 7.4 6.6 - 8.7 g/dL 09/03/2022 12:57 PM [facility] Albumin 5.0(H) 3.6 - 4.9 g/dL 09/03/2022 12:57 PM [facility] Total Bilirubin 1.0 <=1.2 mg/dL 09/03/19 12:57 PM [facility] Alkaline Phosphatase 70 9 - 122 U/L 12:57 PM [facility] Alanine Aminotransferase (ALT) 60(H) 9 - 59 U/L 09/03/2022 12:57 PM [facility] Comment:Calcium dobesilate c an cause artificially low ALT results at therapeutic concentrations Aspartate Aminotransferase (AST) 66(H) 10 - 35 U/L 09/03/2022 12:57 PM [facility] Globulin 2.4 2.3 - 3.5 g/dL 09/03/2022 12:57 PM [facility] A/G Ratio 2.1 1.0 - 2.2 09/03/2022 12:57 PM [facility] AST/ALT Ratio 1.1 See Comment 09/03/2022 12:57 PM [facility] Comment: Adult with mild elevations of [...] >60 >=60 mL/min/1.73 m2 09/03/2022 12:57 PM [facility] Comment:Estimated glomerular filtration rate (eGFR) was [...] 09/03/2022 9:58 AM EST us Ivana Martinez DITCH TENDER LAB BLOOD ORDERABLES Fi nal Result [address] [phone] * (ABNORMAL) CBC auto differential (09/03/2022 9:58 AM EST) WBC 6.2 4.0 - 11.0 x1000/??L 09/03/2022 12:01 PM [facility] RBC 5.11 4.00 - 6.00 M/??L 09/03/2022 12:01 PM [facility] Hemoglobin 16.5 13.2 - 17.1 g/dL 09/03/2022 12:01 PM [facility] Hematocrit 47.30 38.50 - 50.00 % 09/03/2022 12:01 PM [facility] MCV 92.6 80.0 - 100.0 fL 09/03/2022 12:01 PM [facility] MCH 32.3 27.0 - 33.0 pg 09/03/2022 12:01 PM [facility] MCHC 34.9 31.0 - 36.0 g/dL 09/03/2022 12:01 PM [facility] RDW-CV 12.7 11.0 - 15.0 % 09/03/2022 12:01 PM [facility] Platelets 278 150 - 420 x1000/??L 09/03/2022 12:01 PM [facility] MPV 10.2 8.0 - 12.0 fL 09/03/2022 12:01 PM [facility] Neutrophils 40.9 39.0 - 72.0 % 09/03/2022 12:01 PM [facility] Lymphocytes 39.7 17.0 - 50.0 % 09/03/2022 12:01 PM [facility] Monocytes 8.8 4.0 - 12.0 % 09/03/2022 12:01 [facility] Eosinophils 9.3(H) 0.0 - 5.0 % 09/03/2022 12:01 PM [facility] Basophil 1.1 0.0 - 1.4 % 09/03/2022 12:01 PM [facility] Immature Granulocytes 0.2 0.0 - 1.0 % 09/03/2022 12:01 PM [facility] nRBC 0.0 0.0 - 1.0 % 09/03/2022 12:01 PM [facility] ANC(Abs Neutrophil Count) 2.55 2.00 - 7.60 x 1000/??L 09/03/2022 12:01 PM [facility] Absolute Lymphocyte Count 2.48 0.60 - 3.70 x 1000/??L 09/03/2022 12:01 PM [facility] Monocyte Absolute Count 0.55 0.00 - 1.00 x 1000/??L 09/03/2022 12:01 PM [facility] Eosinophil Absolute Count 0.58 0.00 - 1.00 x 1000/??L 09/03/2022 12:01 PM [facility] Basophil Absolute Count 0.07 0.00 - 1.00 x 1000/??L 09/03/2022 12:01 PM [facility] Absolute Immature Granulocyte Count 0.01 0.00 - 0.30 x 1000/??L 09/03/2022 12:01 PM [facility] Absolute nRBC 0.00 0.00 - 1.00 x 1000/??L 09/03/2022 12:01 PM [facility] Blood Venipuncture / Unknown 09/03/2022 9:58 AM EST 09/03/2022 9:58 AM EST Ivana Martinez DITCH TENDER LAB BLOOD ORDERABLES Fi nal Result Performing Organization Address City/[facility]/ZIP Co de Phone Number [address] [phone] * Treponema pallidum (syphilis) antibody w/reflex (09/03/2022 9:58 AM EST) Treponema pallidum Ab Index <0.100 <0.9 Index 09/03/2022 1:38 PM [facility] Treponema pallidum Antibody Total, Serum Non-Reacti ve Non-Reacti ve 09/03/2022 1:38 PM [facility] Blood Venipuncture / Unknown 09/03/2022 9:58 AM EST 09/03/2022 9:58 AM EST Ivanaaldo Martinez DITCH TENDER LAB BLOOD ORDERABLES Fi nal Result Performing Organization Address [facility]/ZIP Co de Phone Number [address] [phone] * (ABNORMAL) Gamma GT (09/03/2022 9:58 AM EST) GGT 133(H) <48 U/L 09/03/2022 12:57 PM [facility] Blood Venipuncture / Unknown 09/03/2022 9:58 AM EST 09/03/2022 9:58 AM EST Ivana [facility] DITCH TENDER LAB BLOOD ORDERABLES Fi nal Result Performing Organization Address [facility] Phone [address] [phone] * (ABNORMAL) Vitamin D, 25-hydroxy (09/03/2022 9:58 AM EST) Vitamin B11-Qpfzsxx 12.1(L) 30.0 - 100.0 ng/mL 09/03/2022 1:55 PM [facility] Comment: Vitamin D Status: ??Results in ng/mL <10.0: ??Deficient 10.0 - 29.9: ??Insufficient 30.0 - 100.0: ??Sufficient >100: ??Toxic Reference ranges established by [employer]. Blood Venipuncture / Unknown 09/03/2022 9:58 AM EST 09/03/2022 9:58 AM EST [facility] DITCH TENDER LAB BLOOD ORDERABLES Fi nal Result Performing Organization Address [facility]/[address] [phone] * (ABNORMAL) Lipid panel (09/03/2022 9:58 AM EST) Cholesterol 201(H) See Comment mg/dL 09/03/2022 12:57 PM [facility] Comment: Total Cholesterol (mg/dL) ?Adults (>18 years) ? Children (<18 years) Desirable ?<200 ? <170 Borderline-High ?200-239 ?170-199 High ? >=240 ?>=200 ? HDL 76 >=40 mg/dL 09/03/2022 12:57 PM [facility] Triglycerides 157(H) See Comment mg/dL 09/03/2022 12:57 PM [facility] Comment: Triglycerides (mg/dL) ?Adults (>18 years) ? Children (<18 years) Desirable ?<150 ? Not Established Borderline-High ?150-199 ?Not Established High ? 200-499 ?Not Established ?? Chol/HDL Ratio 2.6 0.0 - 5.0 09/03/2022 12:57 PM [facility] LDL Calculated 98 See Comment mg/dL 09/03/2022 12:57 PM [facility] Comment: Effective 01/09/2022, LDL [...] APRN LAB BLOOD ORDERABLES Fi nal Result [address] [phone] * (ABNORMAL) Hemoglobin A1c (09/03/2022 9:58 AM EST) Hemoglobin A1c 5.7(H) 4.0 - 5.6 % 09/03/2022 12:34 PM [facility] Comment: Hemoglobin A1c values of 5.7-6.4 [...] Glucose mg/dL 117 mg/dL 09/03/2022 12:34 PM [facility] Comment: Estimated average glucose (eAG) is a calculated value designed to estimate ??the expected average blood glucose level throughout the day from a single ??measurement of ??glycated hemoglobin A1C (HbA1c) and follows the calculation proposed by the [place] [employer] (Diabetes Care 31: 1-6, 2008). It may have less accuracy in children, women and patients with certain erythrocyte disorders. Blood Venipuncture / Unknown 09/03/2022 9:58 AM EST 09/03/2022 9:58 AM EST Ivana Martinez APRN LAB BLOOD ORDERABLES Fi nal Result [address] [phone] * TSH w/reflex to FT4 (BH GH LMW Q YH) (09/03/2022 9:58 AM EST) Thyroid Stimulating Hormone 3.940 See Comment ??IU/mL 09/03/2022 12:57 PM EST [facility] Comment: Male & Non- Females: 0.270-4.200 ??IU/mL 1st Trimester: 0.110-3.480 ??IU/mL 2nd Trimester: 0.320-3.850 ??IU/mL Blood Venipuncture / Unknown 09/03/2022 9:58 AM EST 09/03/2022 9:58 AM EST us Ivana Martinez APRN LAB BLOOD ORDERABLES Fi nal Result Performing Organization Address City/State/[facility] Co de Phone Number [address] [phone] documented in this encounter Visit Diagnoses Diagnosis Hypertension, unspecified type Hypercalcemia Elevated LFTs Other abnormal blood chemistry Dysuria documented in this encounter Additional Health Concerns Assessment Noted Time PHQ-9 Depression Total Score: 1 09/02/19 23 1:40 PM EST documented as of this encounter Care Teams Supervisor Rework Relationship Specialty Start Date End Date Ivana Martinez APRN PCP - General Family Medicine 05/13/22 01/27/24 documented as of this encounter
--- OUTSIDE RECORDS SUMMARY | 2024-09-30 11:10 | XMS_ITS | Encounter Summary ---
Author Organization [facility] Address [address] [place] [address] Care Team Providers Care Quality Assurance Qa Lab Technician Name Role Phone Ivana Martinez HECTOR Primary Care Provider Reason for Visit * Reason Onset Date Comments Medication Refill 12/31/2022 Encounter Details Date Type Department Care Team (Late st Contact Info) Description 12/31/2022 Refill [facility] Internal Medicine [address] [place] [address] Zoya Clayton MD [address] [place] [phone] Medication Refill Social History Tobacco Use [...] as of this encounter Care Teams Quality Assurance Qa Lab Technician Relationship Specialty Start Date End Date Ivana Martinez APRN PCP - General Family Medicine 05/13/22 01/27/24 documented as of this encounter
--- OUTSIDE RECORDS SUMMARY | 2024-09-30 11:10 | XMS_ITS | Encounter Summary ---
Author Organization [facility] Address [address] [place] [address] Care Team Providers Care Duct Installer Name Role Phone Ivana Martinez HECTOR Primary Care Provider Reason for Visit * Reason Onset Date Comments Medication Refill 12/17/2022 Encounter Details Date Type Department Care Team (Late st Contact Info) Description 12/17/2022 Refill [facility] Dermatology at [address] [place], [place] [address] Noel Brandon MD [address] [place] [phone] Medication Refill Social History Tobacco Use Types [...] documented as of this encounter Care Teams Duct Installer Relationship Specialty Start Date End Date Ivana Martinez APRN PCP - General Family Medicine 05/13/22 01/27/24 documented as of this encounter
== END 2024-09-30 09:44 | disposition home or self-care (01) ==
LOC: HO.MRI 09:43
PROVIDERS: PCP Internal Medicine; Visit Provider Physician Assistant
DX: M17.11 Unilateral primary osteoarthritis, right knee (principal)
CPT/HCPCS: 73721

== ENCOUNTER → 2024-09-30 09:53 | Outpatient (BNV) | payer OTHER, SELFPAY | PROVIDERS: PCP Internal Medicine; Visit Provider Radiology Diagnostic Radiology | DX: M17.11 Unilateral primary osteoarthritis, right knee (principal) | CPT/HCPCS: 73721 ==

== ENCOUNTER 2024-10-22 11:35 | Outpatient (AMB) | payer OTHER, SELFPAY ==
--- NOTE | 2024-10-22 11:47 | MHC.OFFVIS ---
Vital Signs 10/22/24 11:50 Height 5 ft 9.5 in Weight 194 lb BMI 28.2 Intake Visit Reasons: OV-MRI RIGHT KNEE REVIEW Intake Note: Jay is a 39 year old male who presents today for a right knee MRI review. Patient reports that the knee brace has been helping however it does at times slip down. Allergies No Known Allergies Allergy (Verified 10/22/24 11:50) HPI HPI OV-MRI RIGHT KNEE REVIEW: Details: 39-year-old gentleman presents to the office today for a follow up right knee MRI. He states he has been applying ice compresses and working on some exercises which have relieve some of his discomfort. [facility] Medical History (Updated 09/23/24 @ 17:22 by Shama Franco PA-C) B12 deficiency Overweight (BMI 25.0-29.9) Elevated bilirubin Follow-up exam, 3-6 months since previous exam Alcohol use disorder, mild, abuse Tobacco use disorder Tinea corporis Acquired hypothyroidism Essential hypertension Surgical History No pertinent past surgical history Social [facility] Alcohol intake: current Alcohol intake frequency: a few times a week Patient Tobacco Use Status: Current everyday Tobacco user (chewing ) Tobacco use type: Smokeless Tobacco e-Cigarette/Vaping Use: Never Used Second Hand Smoke Exposure: Yes service: No Current occupational status: employed 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 He has full range of motion with crepitus. Tenderness over the medial joint line with negative Manjinder's. Calf supple nontender neurovascularly intact. Results Reviewed Results Reviewed: MR knee RT wo con IMPRESSION: 1. Mild osteoarthritis involving the medial compartment. Trace joint effusion. 2. Mild soft tissue edema in the suprapatellar fat pad. This can be seen in the setting of prefemoral fat pad impingement. Clinical correlation is recommended. Assessment & Plan Assessment & Plan (1) Osteoarthritis of right knee: Code(s): M17.11 - Unilateral primary osteoarthritis, right knee Category: Medical Plan We discussed options which include PT, NSAIDs and injections.He will defer on the injection today and proceed with PT and NSAIDs. He was fit for a knee brace today .If symptoms persist he will contact me for an injection, otherwise, prn. Coding Level of Care Code Est Pt Level 3 (21748) Complex EM visit Add On G2211 Diagnoses Osteoarthritis of right knee M17.11
[2024-10-22 11:50] VITALS: BMI 28.2
== END 2024-10-22 12:10 | disposition home or self-care (01) ==
LOC: HO.HOS 11:35
PROVIDERS: PCP Internal Medicine; Visit Provider Physician Assistant
DX: M17.11 Unilateral primary osteoarthritis, right knee (principal)
CPT/HCPCS: 99213; G2211

== ENCOUNTER → 2024-10-22 11:35 | Outpatient (BNVA) | payer OTHER, SELFPAY | PROVIDERS: PCP Internal Medicine; Visit Provider Physician Assistant | DX: M17.11 Unilateral primary osteoarthritis, right knee (principal) | CPT/HCPCS: 99212 ==

== ENCOUNTER 2025-04-27 11:00 | Outpatient (AMB) | payer OTHER, SELFPAY ==
--- OUTSIDE RECORDS SUMMARY | 2022-10-21 14:14 | XMS_ITS | Encounter Summary ---
Author Organization [facility] Address [address] [place] [address] Care Team Providers Care Swimming Pool Salesperson Name Role Phone Pcp, No Primary Care Provider Unavailabl e Reason for Referral * Diagnostic Imaging (Routine) - Closed Specialty Diagnoses / Procedures Referred By Christian chatman Referred To Contact Diagnoses Microhematuria Procedures CT Urogram w w/o contrast w/3D Matthew Rodney MD [address] [place] [address] Phone: tel: fax: Referral ID Status Reason Start Date Expiration Date Visits Re quested Visits Authorized [id number] Closed 10/08/2022 12/11/2022 1 1 Reason for Visit * Diagnostic Imaging (Routine) - Closed Specialty Diagnoses / Procedures Referred By Christian chatman Referred To Contact Diagnoses Microhematuria Procedures CT Urogram w w/o contrast w/3D Matthew Rodney MD [address] [place], [place] [id number] Phone: tel: fax: Referral ID Status Reason Start Date Expiration Date Visits Re quested Visits Authorized [id number] Closed 10/08/2022 12/11/2022 1 1 Encounter Details Date Type Department Care Team (Late st Contact Info) Description 10/21/2022 2:14 PM EDT Hospital Encounter [facility] [address] [place] [phone] Microhematuria Social History Tobacco Use Types Packs/Day [...] mL documented in this encounter Care Teams Swimming Pool Salesperson Relationship Specialty Start Date End Date Pcp, No PCP - General 10/21/22 documented as of this encounter
--- NOTE | 2025-04-27 11:07 | MHC.PC.OV ---
Vital Signs 04/27/25 11:08 Height 5 ft 9.5 in Weight 188 lb 6 oz BMI 27.4 BP 120/80 Blood Pressure Location Lt brachial Position Sitting Pulse 84 Pulse Source Pulse Oximeter Temp 97.5 F Temp Source Temporal Artery Scan Pulse Oximetry (%) 94 Oxygen Delivery Method Room Air Intake Visit Reasons: Annual Exam Intake Note: Patient is here today for a physical. Slicing Machine Feeder Required: No Housing Officer: Not Required per policy Accompanied by: Self / Same As Patient Allergies No Known Allergies Allergy (Verified 04/28/25 06:02) Medication List - Last Reconciled 04/28/25 by Boom Salomon MD atorvastatin 10 mg PO BEDTIME cetirizine mg PO DAILY cholecalciferol (vitamin D3) 1,250 mcg PO QWEEK hydrochlorothiazide 25 mg PO DAILY ketoconazole 2% topical ketoconazole 2% 1 appl topical DAILY mecobalamin (vitamin B12) 1,000 mcg PO DAILY mv,Ca,qyp-tsba-VC-lycopene 8 mg iron- 200 mcg-600 mcg (Men Under 50 Multivitamin) 1 tab PO DAILY polyethylene glycol 400 1% (Dry Eye Relief (PEG 400)) 1 drp ophthalmic (eye) QID PRN sildenafil (pulm.hypertension) 60 mg (3 x 20 mg) PO DAILY 90 days triamcinolone acetonide 0.1% 1 appl topical DAILY Tobacco use date assessed: 09/17/24 Dental Screening Dental Screen Date: 09/17/24 [facility] Annual Exam HPI Details 39-year-old male presents to the office requesting an annual physical exam [facility] Medical History (Updated 04/28/25 @ 06:03 by Boom Salomon MD) B12 deficiency Elevated bilirubin Follow-up exam, 3-6 months since previous exam Alcohol use disorder, mild, abuse Tobacco use disorder Tinea corporis Acquired hypothyroidism Essential hypertension Surgical History No pertinent past surgical history Social History Housing: Condominium Alcohol intake: current Alcohol intake frequency: a few times a week Patient Tobacco Use Status: Current everyday Tobacco user (chewing ) Tobacco use type: Smokeless Tobacco e-Cigarette/Vaping Use: Never Used Second Hand Smoke Exposure: Yes service: No Current occupational status: employed 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 1. Little interest or pleasure in doing things: not at all 2. Feeling down, depressed, or hopeless: more than half the days 3. Trouble falling or staying asleep, or sleeping too much: nearly every day 4. Feeling tired or having little energy: nearly every day 5. Poor appetite or overeating: nearly every day 6. Feeling bad about yourself - or that you are a failure or have let yourself or your family down: not at all 7. Trouble concentrating on things, such as reading the newspaper or watching television: not at all 8. Moving or speaking so slowly that other people could have noticed. Or the opposite - being so fidgety or restless that you have been moving around a lot more than usual: not at all 9. Thoughts that you would be better off or of hurting yourself in some way: not at all Total score: 11 Depression Screening Interpretation: Positive Depression Screening Done: Yes Source: Developed by Drs. Hasmukh Canela, Nilam Hernandez, Elio Capps and colleagues, with an educational nury from [employer]. Thrive Questionnaire Date Thrive assessed: 03/18/25 I am a: Patient What is your living situation today?: I have a steady place to live Within the past 12 months, did the food you bought not last and you didn't have the money to get more?: I choose not to answer this question Within the past 12 months, did you worry whether your food would run out before you got money to buy more?: I choose not to answer this question Do you have trouble paying for medicines?: No Do you have trouble getting transportation to medical appointments?: No Do you have trouble paying your heating and electricity bill?: No Do you have trouble taking care of your child, family member or friend?: No Do you have trouble with day-to-day activities such as bathing, preparing meals, shopping, managing finances, etc.?: No Are you currently unemployed and looking for a job?: No Are you interested in more education?: No Please select the resources that you would like help with: None Currently or been in a relationship where the following occur: No concerns reported THRIVE Score: 0 RAISA-7 AMB Questionnaire RAISA-7 Date RAISA - 7 assessed: 09/17/24 Source: Developed by Drs. Hasmukh Canela, Nilam Hernandez, Elio Capps and colleagues, with an educational nury from [employer]. Physical exam (Primary Care) Vital Signs: Last Vital Signs Temp 97.5 F 04/27/25 11:08 Pulse 84 04/27/25 11:08 BP 120/80 04/27/25 11:08 Pulse Ox 94 04/27/25 11:08 Oxygen Delivery Method Room Air 04/27/25 11:08 BMI result Body Mass Index 27.4 Tobacco/Smoking Status: Tobacco use Status Tobacco use date assessed 09/17/24 04/27/25 11:15 Patient Tobacco Use Status Current everyday Tobacco ( 04/27/25 11:15 chewing ) Tobacco use type Smokeless Tobacco 04/27/25 11:15 e-Cigarette/Vaping Use Never Used 04/27/25 11:15 PHQ-9: PHQ-9 Score PHQ-9: Total score 11 04/27/25 11:28 Depression Screening Interpretation: Positive Thrive Assessment: Date of Thrive Assessment Date Thrive assessed 03/18/25 04/27/25 11:15 Currently or been in a relationship where the following occur: No concerns reported Coding Level of Care Code Est Pt Prev Care 18-39y(55042) Diagnoses Acquired hypothyroidism E03.9 Essential hypertension I10 Atypical chest pain R07.89 Tobacco use disorder F17.200 Assessment & Plan Assessment & Plan (1) Acquired hypothyroidism: Code(s): E03.9 - Hypothyroidism, unspecified Category: Medical Plan: Blood work ordered. (2) Essential hypertension: Code(s): I10 - Essential (primary) hypertension Category: Medical Plan: Blood pressure is in range. (3) Atypical chest pain: Code(s): R07.89 - Other chest pain Plan: EKG and stress test have been ordered. Will follow-up with the results. (4) Tobacco use disorder: Code(s): F17.200 - Nicotine dependence, unspecified, uncomplicated Category: Medical Plan: Counseling to quit smoking was done. Plan History of Present Illness - The patient is a 39-year-old male requesting an annual physical examination and concerns about musculoskeletal chest pain and heartburn. - Musculoskeletal chest pain: Reports intermittent chest pain, possibly muscular, present for two months, sometimes with breathlessness. Denies family history of heart disease; previous treadmill tests normal. - Tobacco use: History of tobacco use, attempting to quit, acknowledges contribution to symptoms, reducing intake gradually. - Heartburn: Reports increased frequency of heartburn, using Tums, requests omeprazole prescription. - Preventative care: Previous normal treadmill tests, plans to repeat as preventative measure. Social History - Tobacco use: The patient has a history of tobacco use and is attempting to quit, acknowledging its potential impact on his health. - Alcohol consumption: The patient consumes alcohol primarily on , Fridays, and Saturdays, and is advised to reduce intake. - Exercise: The patient has stopped exercising due to a shoulder problem but is encouraged to incorporate physical activity into his routine. - Diet: The patient reports eating mostly home-cooked meals and has reduced consumption of unhealthy snacks. Review of Systems - Cardiovascular: Reports intermittent chest pain, denies family history of heart disease. - Respiratory: Reports occasional breathlessness, denies persistent respiratory issues. - Gastrointestinal: Reports frequent heartburn, denies other gastrointestinal symptoms. Physical Exam General: Cooperative and healthy appearing Nutritional Appearance: Well nourished Orientation/consciousness: Patient oriented x3 Limitations: No limitations Head: Normal to inspection General: Appearance normal, both eyes and all related structures Neck: Normal visual inspection Chest: Normal palpation of entire chest wall Respiratory: Patient reports occasional chest pain, possibly muscular, and experiences shortness of breath at times. ormal respiratory effort Neurology: Patient oriented x3 Results - Tests and Diagnostics: Previous treadmill tests normal, EKG and blood work planned. Plan - Order blood work and EKG to assess cardiovascular health. - Schedule a treadmill test to evaluate chest pain and ensure cardiac function. - Prescribe omeprazole for management of heartburn symptoms. - Advise gradual reduction of tobacco use and provide support for cessation. - Recommend reducing alcohol intake, particularly on weekdays, to improve overall health. - Encourage resumption of physical activity, including yoga or meditation, to enhance well-being. Discussion Notes I discussed with the patient the importance of addressing his musculoskeletal chest pain and heartburn. We agreed on conducting blood work and an EKG to evaluate his cardiovascular health. I recommended a treadmill test to further assess his chest pain and ensure cardiac function. We also discussed the prescription of omeprazole for his heartburn. I advised him to gradually reduce tobacco use and provided strategies for cessation. Additionally, I recommended reducing alcohol intake, particularly on weekdays, and encouraged incorporating physical activity, such as yoga or meditation, into his routine to improve overall well-being. Patient Instructions - Follow up with blood work and EKG as scheduled. - Attend the treadmill test appointment to evaluate chest pain. - Take omeprazole as prescribed for heartburn management. - Gradually reduce tobacco use and seek support if needed. - Limit alcohol consumption, especially on weekdays. - Incorporate physical activity, such as yoga or meditation, into daily routine. Orders: Orders Complete Blood Count no Diff 04/27/25 E03.9 - Hypothyroidism, unspecified Lipid Panel 04/27/25 E03.9 - Hypothyroidism, unspecified Liver Panel 04/27/25 E03.9 - Hypothyroidism, unspecified UA and rflx microscopic 04/27/25 E03.9 - Hypothyroidism, unspecified ECG 12 lead EKG 04/27/25 I10 - Essential (primary) hypertension Basic Metabolic Panel 04/27/25 E03.9 - Hypothyroidism, unspecified Thyroid Stimulating Hormone 04/27/25 E03.9 - Hypothyroidism, unspecified CA stress test 04/27/25 R07.89 - Other chest pain Medications: Refilled polyethylene glycol 400 1% (Dry Eye Relief (PEG 400)) 1 drp ophthalmic (eye) QID PRN 15 mL 3RF dry eye(s)
[2025-04-27 11:08] VITALS: BP 120/80; PULSE 84; TEMP 36.4; O2SAT 94; BMI 27.4
--- OUTSIDE RECORDS SUMMARY | 2025-04-27 14:11 | XMS_ITS | Encounter Summary ---
Author Organization [facility] Address [address] [place] [address] Care Team Providers Care Community Administrator Name Role Phone Ivana Martinez HECTOR Primary Care Provider Reason for Visit * Reason Comments Medication Refill Encounter Details Date Type Department Care Team (Late st Contact Info) Description 09/29/2020 Refill [facility] Family Medicine [address] [place], [place] [id number] Zoya Clayton MD [address] [address] Medication Refill Social History Tobacco [...] documented as of this encounter Care Teams Community Administrator Relationship Specialty Start Date End Date Ivana Martinez APRN PCP - General Family Medicine 05/13/22 01/27/24 documented as of this encounter
--- OUTSIDE RECORDS SUMMARY | 2025-04-27 14:11 | XMS_ITS | Encounter Summary ---
Author Organization [facility] Address [address] [place] [address] Care Team Providers Care Oncology Account Specialist Name Role Phone Physician, Pcp Unknown Primary Care Provider Ale vailable Encounter Details Date Type Department Care Team (Late st Contact Info) Description 08/19/[address] [facility] - Main Lab [address] [facility] [place] [address] Denzel Longo MD [address] [place] [address] [place] [phone] Local infection of the skin and subcutaneous [...] Result [facility] [address] [place] [address], documented in this encounter Visit Diagnoses Diagnosis Local infection of the skin and subcutaneous tissue, unspecified documented in this encounter Care Teams Oncology Account Specialist Relationship Specialty Start Date End Date Physician, Pcp Unknown PCP - General 02/22/25 documented as of this encounter
--- OUTSIDE RECORDS SUMMARY | 2025-04-27 14:11 | XMS_ITS | Clinical Summary ---
Author Organization [address] [facility] Address [address] [place] [address] Phone Care Team Providers Care Slip Feeder Name Role Phone Physician, Pcp Unknown Primary Care Provider Ale vailable Encounters Date Type Department Care Team Description 02/22/2025 Lab Requisition [facility] - Main Lab [address] [facility] [email or web address] [address] Selena Ramos MD Tinea corporis from Last 3 Months Social History Tobacco [...] series) 2005 Cholesterol Screening (Lipid Panel) 08/29/2023 HIV Screening 08/29/2023 Hepatitis C Screening 08/29/2023 Social Influencers of Health Screening 08/29/2023 Depression Screening 08/04/2024 COVID-19 Vaccine ( - 2023-2 5 season) 2025 Influenza Vaccine (#1) 2025 HIB Vaccines Aged Out No longer eligi [...] age to complete this topic Meningococcal B Vaccine Aged Out No l onger eligible based on patient's age to complete this topic Pneumococcal Vaccine: Pediat rics (0 to 5 Years) and At-Risk Patients (6 to 49 [...] Associated Diagnosis Comments CULTURE FUNGAL, OTHER Routine 02/22/2025 12:00 AM EDT Tinea corporis from Last 3 Months Results * Culture fungal, other (02/22/2025 12:00 AM EDT) Culture, Fungus Negative for Fungus after 4 Weeks 03/24/2025 10:59 AM EDT [facility] Skin 02/22/2025 02/22/2025 6:5 8 PM EDT Selena Ramos MD LAB MICROBIOLOGY - GENERAL MONTY HAYDEN Final Result [facility] [address] [place] [address], [place] [phone] from Last 3 Months Insurance MEDICAID - [place] [facility] [place] [address] Care Teams Slip Feeder Relationship Specialty Start Date End Date Physician, Pcp Unknown PCP - General 02/22/25
--- OUTSIDE RECORDS SUMMARY | 2025-04-27 14:11 | XMS_ITS | Encounter Summary ---
Author Organization [facility] and Home Health Address [address] [place] [address] Care Team Providers Care Tape Edge Machine Operator Name Role Phone Ivana Martinez APRN Primary Care Provider Encounter Details Date Type Department Care Team (Late st Contact Info) Description 02/26/2023 Orders Only [facility] [place] [facility] [address] [place], [place] [phone] Ivana Martinez APRN [address] [place] [address] [address] [place] [address] Hypertension, unspecified type; Hypothyroidism, unspecified [...] AM EDT) WBC 5.4 4.0 - 11.0 x1000/ L 02/26/2023 3:06 PM [facility] RBC 5.06 4.00 - 6.00 M/ L 02/26/2023 3:06 PM [facility] Hemoglobin 16.4 13.2 - 17.1 g/dL 02/26/2023 3:06 PM [facility] Hematocrit 44.90 38.50 - 50.00 % 02/26/2023 3:06 PM [facility] MCV 88.7 80.0 - 100.0 fL 02/26/2023 3:06 PM [facility] MCH 32.4 27.0 - 33.0 pg 02/26/2023 3:06 PM [facility] MCHC 36.5(H) 31.0 - 36.0 g/dL 02/26/2023 3:06 PM [facility] RDW-CV 12.6 11.0 - 15.0 % 02/26/2023 3:06 PM [facility] Platelets 331 150 - 420 x1000/ L 02/26/2023 3:06 PM [facility] MPV 9.8 8.0 - 12.0 fL 02/26/2023 3:06 PM [facility] Neutrophils 42.8 39.0 - 72.0 % 02/26/2023 3:06 PM [facility] Lymphocytes 37.2 17.0 - 50.0 % 02/26/2023 3:06 PM [facility] Monocytes 9.5 4.0 - 12.0 % 02/26/2023 3:06 PM [facility] Eosinophils 8.8(H) 0.0 - 5.0 % 02/26/2023 3:06 PM [facility] Basophil 1.3 0.0 - 1.4 % 02/26/2023 3:06 PM [facility] Immature Granulocytes 0.4 0.0 - 1.0 % 02/26/2023 3:06 PM [facility] nRBC 0.0 0.0 - 1.0 % 02/26/2023 3:06 PM EDT [facility] ANC(Abs Neutrophil Count) 2.30 2.00 - 7.60 x 1000/ L 02/26/2023 3:06 PM T [facility] Absolute Lymphocyte Count 2.00 0.60 - 3.70 x 1000/ L 02/26/2023 3:06 PM T [facility] Monocyte Absolute Count 0.51 0.00 - 1.00 x 1000/ L 02/26/2023 3:06 PM EDT [facility] Eosinophil Absolute Count 0.47 0.00 - 1.00 x 1000/ L 02/26/2023 3:06 PM T [facility] Basophil Absolute Count 0.07 0.00 - 1.00 x 1000/ L 02/26/2023 3:06 PM [facility] Absolute Immature Granulocyte Count 0.02 0.00 - 0.30 x 1000/ L 02/26/2023 3:06 PM [facility] Absolute nRBC 0.00 0.00 - 1.00 x 1000/ L 02/26/2023 3:06 PM [facility] Blood Venipuncture / Unknown 02/26/2023 11:12 AM EDT 02/26/2023 11:12 AM EDT us Ivana Martinez SLICE CUTTING MACHINE OPERATOR HELPER LAB BLOOD ORDERABLES Fi nal Result [address] [phone] * (ABNORMAL) Comprehensive metabolic panel (02/26/2023 11:12 AM EDT) Sodium 140 136 - 144 mmol/L 02/26/2023 3:26 PM EDT [facility] Potassium 4.1 3.3 - 5.3 mmol/L 02/26/2023 3:26 PM T [facility] Chloride 99 98 - 107 mmol/L 02/26/2023 3:26 PM EDT [facility] CO2 30 20 - 30 mmol/L 02/26/2023 3:26 PM T [facility] Anion Gap 11 7 - 17 02/26/2023 3:26 PM [facility] Glucose 96 70 - 100 mg/dL 02/26/2023 3:26 PM [facility] BUN 8 6 - 20 mg/dL 02/26/2023 3:26 PM [facility] Creatinine 0.76 0.40 - 1.30 mg/dL 02/26/2023 3:26 PM [facility] Calcium 10.0 8.8 - 10.2 mg/dL 02/26/2023 3:26 PM [facility] BUN/Creatinine Ratio 10.5 8.0 - 23.0 02/26/2023 3:26 PM [facility] Total Protein 7.7 6.6 - 8.7 g/dL 023 3:26 PM [facility] Albumin 5.0(H) 3.6 - 4.9 g/dL 02/26/2023 3:26 PM [facility] Total Bilirubin 0.4 <=1.2 mg/dL 02/27/20 3:26 PM [facility] Alkaline Phosphatase 57 9 - 122 U/L 02/26/2023 3:26 PM [facility] Alanine Aminotransferase (ALT) 27 9 - 59 U/L 02/26/2023 3:26 PM [facility] Comment:Calcium dobesilate c an cause artificially low ALT results at therapeutic concentrations Aspartate Aminotransferase (AST) 40(H) 10 - 35 U/L 02/26/2023 3:26 PM [facility] Globulin 2.7 2.3 - 3.5 g/dL 02/26/2023 3:26 PM [facility] A/G Ratio 1.9 1.0 - 2.2 02/26/2023 3:26 PM [facility] AST/ALT Ratio 1.5 Reference Range Not Established 02/26/2023 3:26 PM [facility] eGFR (Creatinine) >60 >=60 mL/min/1.73m2 02/26/2023 3:26 PM [facility] Comment: Values < 60 mL/min/1.73 m2 may indicate CKD if present for more than three months AND creatinine is at steady state. The eGFR provides a rough estimate of kidney function. On 03/19/22 all [facility] Clinical Labs and [facility] began using a [id number] formula for estimating GFR called CKD-EPI Creatinine 2020. This equation reports eGFR based on creatinine, patient age, clinical sex, and is standardized to a body surface area of 1.73 m2. For the same creatinine, this new race-free eGFR will be lower than prior reported Black eGFR results and higher than prior Non-Black eGFR results. For further guidance, please refer to the CKD: Adult Universal Grinder Set Up Operator Signature pathway. Blood Venipuncture / Unknown 02/26/2023 11:12 AM EDT 02/26/2023 11:12 AM EDT Ivana Martinez APRN LAB BLOOD ORDERABLES Fi nal Result [address] [phone] * (ABNORMAL) Hemoglobin A1c (02/26/2023 11:12 AM EDT) Hemoglobin A1c 5.8(H) 4.0 - 5.6 % 02/26/2023 7:37 PM T [facility] Comment: Hemoglobin A1c values of 5.7-6.4 % identify individuals with an increased risk for future diabetes and to whom the term pre-diabetes may be applied. Hemoglobin A1c values greater than 6.4% on more [...] mg/dL 120 mg/dL 02/26/2023 7:37 PM T [facility] Comment: Estimated average glucose (eAG) is a calculated value designed to estimate the expected average blood glucose level throughout the day from a single measurement of glycated hemoglobin A1C (HbA1c) and follows the calculation proposed by the [place] [employer] (Diabetes Care 31: 1-6, 2008). It may have less accuracy in children, women and patients with certain erythrocyte disorders. Blood Venipuncture / Unknown 02/26/2023 11:12 AM EDT 02/26/2023 11:12 AM EDT us Ivana Martinez SLICE CUTTING MACHINE OPERATOR HELPER LAB BLOOD ORDERABLES Fi nal Result Performing Organization Address City/State/[facility] [[email or web address]] Co de Phone Number [address] [phone] * (ABNORMAL) Lipid panel (02/26/2023 11:12 AM EDT) Cholesterol 180 See Comment mg/dL 02/26/2023 3:26 PM T [facility] Comment: Total Cholesterol (mg/dL) Adults (>18 years) Children (<18 years) Desirable <200 <170 Borderline-High 200-239 170-199 High >=240 >=200 HDL 62 >=40 mg/dL 02/26/2023 3:26 PM T [facility] Triglycerides 161(H) See Comment mg/dL 02/26/2023 3:26 PM [facility] Comment: Triglycerides (mg/dL) Adults (>18 years) Children (<18 years) Desirable <150 Not Established Borderline-High 150-199 Not Established High 200-499 Not Established Chol/HDL Ratio 2.9 0.0 - 5.0 02/26/2023 3:26 PM T [facility] LDL Calculated 91 See Comment mg/dL 02/26/2023 3:26 PM EDT [facility] Comment: Effective 01/09/2022, LDL is calculated using the El-NIH equation, which is more accurate than the Friedewald and Gato-Sanchez equations. LDL Cholesterol (mg/dL) Adults (>18 years) Children (<18 years) Desirable <100 <110 Above Desirable 100-129 Not Established Borderline-High 130-159 110-129 High 160-189 >=130 Very High >=190 Not Established Blood Venipuncture / Unknown 02/26/2023 11:12 AM EDT 02/26/2023 11:12 AM EDT Rounds LAB BLOOD ORDERABLES Fi nal Result Performing Organization Address [facility] [[email or web address]] Co de Phone Number [address] [phone] * (ABNORMAL) Vitamin D, 25-hydroxy (02/26/2023 11:12 AM EDT) Vitamin B68-Ecpgwtq 11.1(L) 30.0 - 100.0 ng/mL 02/27/2023 10:42 AM EDT [facility] Comment: Vitamin D Status: Results in ng/mL <10.0: Deficient 10.0 - 29.9: Insufficient 30.0 - 100.0: Sufficient >100: Toxic Reference ranges established by [employer]. Blood Venipuncture / Unknown 02/26/2023 11:12 AM EDT 02/26/2023 11:12 AM EDT [employer] LAB BLOOD ORDERABLES Fi nal Result Performing Organization Address [facility]/ZIP Co de Phone Number [address] [phone] * (ABNORMAL) Gamma GT (02/26/2023 11:12 AM EDT) GGT 108(H) <48 U/L 02/26/2023 3:26 PM EDT [facility] Blood Venipuncture / Unknown 02/26/2023 11:12 AM EDT 02/26/2023 11:12 AM EDT Ivana Martinez [facility] LAB BLOOD ORDERABLES Fi nal Result Performing Organization Address [facility] [[email or web address]] Co de Phone Number [address] [phone] * TSH w/reflex to FT4 (BH GH LMW Q YH) (02/26/2023 11:12 AM EDT) Thyroid Stimulating Hormone 2.550 See Comment IU/mL 02/26/2023 3:26 PM EDT [facility] Comment: Male & Non- Females: 0.270-4.200 IU/mL 1st Trimester: 0.110-3.480 IU/mL 2nd Trimester: 0.320-3.850 IU/mL Blood Venipuncture / Unknown 02/26/2023 11:12 AM EDT 02/26/2023 11:12 AM EDT Ivana Martinez SLICE CUTTING MACHINE OPERATOR HELPER LAB BLOOD ORDERABLES Fi nal Result Performing Organization Address [facility]/ZIP Co de Phone Number [address] [phone] documented in this encounter Visit Diagnoses Diagnosis Hypertension, unspecified type Hypothyroidism, unspecified type LFT elevation Other abnormal blood chemistry Vitamin D deficiency Unspecified vitamin D deficiency documented in this encounter Additional Health Concerns Assessment Noted Time PHQ-9 Depression Total Score: 0 02/27/20 23 10:41 AM EDT documented as of this encounter Care Teams Tape Edge Machine Operator Relationship Specialty Start Date End Date Ivana Martinez APRN PCP - General Family Medicine 05/13/22 01/27/24 documented as of this encounter
--- OUTSIDE RECORDS SUMMARY | 2025-04-27 14:11 | XMS_ITS | Encounter Summary ---
Author Organization [facility] Address [address] [place] [address] Care Team Providers Care Surveillance Agent Name Role Phone Ivana Martinez HECTOR Primary Care Provider Encounter Details Date Type Department Care Team (Late st Contact Info) Description 11/08/2020 Scanned Document [address]Shellie Ansible [facility] [address] [place] [address] External, Provider Social History Tobacco Use Types [...] documented as of this encounter Care Teams Surveillance Agent Relationship Specialty Start Date End Date Ivana Martinez APRN PCP - General Family Medicine 05/13/22 01/27/24 documented as of this encounter
--- OUTSIDE RECORDS SUMMARY | 2025-04-27 14:11 | XMS_ITS | Clinical Summary ---
Author Organization [address] Address [address] [place] [phone] Care Team Providers Care It Security Administrator Name Role Phone Unavailable Primary Care Provider [...] echo and a treadmill stress test. Immunizations Immunization Administration Dates Next Due COVID-19 Vaccine - [...] 85 02/26/2023 10:38 AM EDT Temperature 36.6 C (97.8 F) 02/26/2023 10:38 AM EDT Respiratory Rate 18 10/12/2021 12:15 PM EST Oxygen Saturation 99% 02/26/2023 10:38 AM EDT Inhaled Oxygen Concentration - - Weight 80.7 kg (178 lb) 02/26/2023 10:38 AM EDT Height 180.3 cm (5' 11 ) 02/26/2023 10:38 AM EDT Body Mass Index 24.83 02/26/2023 10:38 AM EDT Plan of Treatment Health Maintenance Due Date Last Done Comments Covid-19 vaccine series ( season) 2025 02/03/2021 Diabetes screening 02/26/2026 02/26/2023, 0 02/26/2023, 09/03/2022, Additional history exists Tetanus adult (Td q 10,TDAP once) 10/10/2030 10/10/2020 Colon cancer screening, Colonoscopy 10/13/2031 10/12/2021, 10/12/2021, 10/12/2021, Additional history exists RSV Immunization (1 - 1-dose 75+ series) 2061 Hepatitis C screening Completed 05/13/2022, 021 Influenza vaccine Discontinued 05/13/2022, 06/06/2021 HIV screening Discontinued Meningococcal B Vaccine Aged Out No l onger eligible based on patient's age to complete this topic Meningococcal Vaccine Aged Out No jeanna thalia [...] - 5.6 % 02/26/2023 7:37 PM EDT [facility] Comment: Hemoglobin A1c values of 5.7-6.4 [...] mg/dL 120 mg/dL 02/26/2023 7:37 PM EDT [facility] Comment: Estimated average glucose (eAG) is a calculated value designed to estimate the expected average blood glucose level throughout the day from a single measurement of glycated hemoglobin A1C (HbA1c) and follows the calculation proposed by the [place] [employer] (Diabetes Care 31: 1-6, 2008). It may have less accuracy in children, women and patients with certain erythrocyte disorders. Blood Venipuncture / Unknown 02/26/2023 11:12 AM EDT 02/26/2023 11:12 AM EDT Ivana Martinez APRN LAB BLOOD ORDERABLES Fi nal Result Performing Organization Address [facility]/State/ZIP Co de Phone Number [address] [phone] * Hepatitis C Ab with reflex to HCV PCR (05/13/2022 10:46 AM EDT) Hepatitis C Ab Initial Result 0.03 S/CO 05/13/2022 1:44 PM EDT [facility] Hepatitis C Ab Interpretation Non-React lilo Non-React lilo 05/13/2022 1:44 PM T [facility] Blood Venipuncture / Unknown 05/13/2022 10:46 AM EDT 05/13/2022 10:46 AM EDT us Ivana Martinez ROAD INSPECTOR LAB BLOOD ORDERABLES Fi nal Result [address] [address], [facility] [phone] * Colonoscopy (10/12/2021 7:19 AM EST) Colonoscopy Endoscopy Patient Name: Jay Guillermo Procedure Date: 10/12/2021 7:19 AM Date of : 1985 Age: 36 Gender: Male Admit Type: Outpatient [facility] #: [id number] Note Status: Finalized Attending MD: Matthew Huynh MD Procedure: Colonoscopy Indications: Generalized abdominal pain, Clinically significant diarrhea of unexplained origin Providers: Matthew Huynh MD Referring MD: Zoya Clayton (Referring MD) Medicines: Monitored Anesthesia Care Complications: No immediate complications. Requesting Provider: Procedure: Pre-Anesthesia Assessment: - Prior to the procedure, a History and Physical was performed, and patient medications and allergies were reviewed. The patient's tolerance of previous anesthesia was also reviewed. The risks and benefits of the procedure and the sedation options and risks were discussed with the patient. All questions were answered, and informed consent was obtained. Prior Anticoagulants: The patient has taken no anticoagulant or antiplatelet agents. ASA Grade Assessment: II - A patient with mild systemic disease. After reviewing the risks and benefits, the patient was deemed in satisfactory condition to undergo the procedure. After obtaining informed consent, the scope was passed under direct vision. Throughout the procedure, the patient's blood pressure, pulse, and oxygen saturations were monitored continuously. The [id number] was introduced through the anus and advanced to 8 cm into the ileum. The colonoscopy was performed without difficulty. The patient tolerated the procedure well. The quality of the bowel preparation was good. Findings: The sigmoid colon, descending colon, transverse colon, ascending colon, cecum and ileum appeared normal. Biopsies were taken with a cold forceps for histology. A localized area of mildly congested and erythematous mucosa was found in the rectum. Biopsies were taken with a cold forceps for histology. Impression: - The sigmoid colon, descending colon, transverse colon, ascending colon, cecum and terminal ileum are normal. Biopsied. - Congested and erythematous mucosa in the rectum. Biopsied. Recommendation: - Discharge patient to home (with escort). - Resume previous diet. - Continue present medications. - Patient has a contact number available for emergencies. The signs and symptoms of potential delayed complications were discussed with the patient. Return to normal activities tomorrow. Written discharge instructions were provided to the patient. Procedure Code(s): --- Professional --- 32326, Colonoscopy, flexible; with biopsy, single or multiple Diagnosis Code(s): --- Professional --- K62.89, Other specified diseases of anus and rectum R10.84, Generalized abdominal pain R19.7, Diarrhea, unspecified CPT copyright 2020 [employer]. All rights reserved. The codes documented in this report are preliminary and upon blow molding machine operator review may be revised to meet current compliance requirements. Attending Participation: I personally performed the entire procedure. Matthew Huynh MD _ Matthew Huynh MD 10/12/2021 11:45:52 AM This report has been signed electronically. Number of Addenda: 0 Note Initiated On: 10/12/2021 7:19 AM Estimated Blood Loss: Estimated blood loss: none. Scope In: Scope Out: [facility] [employer] 10/12/2021 7:19 AM EST Zoya Clayton MD GI PROCEDURE ORDERABLES Final Re sult [facility] [employer]ATION from Last 3 Months or Most Recently Relevant to Health Maintenance Insurance [place]ICA[place] Advance Directives Documents on File Type Date Recorded Patient It Security Architect Expl anation Healthcare It Security Architect/Po wer of Supervisor [employer] 03/19/2021 4:27 PM 2020
--- OUTSIDE RECORDS SUMMARY | 2025-04-27 14:12 | XMS_ITS | Encounter Summary ---
Author Organization [facility] and Home Health Address [address] [place] [address] Care Team Providers Care Plodder Operator Name Role Phone Ivana Martinez HECTOR Primary Care Provider Encounter Details Date Type Department Care Team (Late st Contact Info) Description 10/12/2021 Scanned Document [facility] [address] [place], [place] [address] Matthew Huynh MD [address] [place] [address] Social History Tobacco Use Types [...] documented as of this encounter Care Teams Plodder Operator Relationship Specialty Start Date End Date Ivana Martinez APRN PCP - General Family Medicine 05/13/22 01/27/24 documented as of this encounter
--- OUTSIDE RECORDS SUMMARY | 2025-04-27 14:12 | XMS_ITS | Encounter Summary ---
Author Organization [facility] and [facility] Address [address] [place] [address] Care Team Providers Care Vp Integrity Name Role Phone Johannaastondidi Ivana HECTOR Primary Care Provider Encounter Details Date Type Department Care Team (Late st Contact Info) Description 11/19/2021 Scanned Document [facility] Internal Medicine [address] [place], [place] [phone] Provider, Historical . Social History Tobacco Use Types Packs/Day [...] RIGHT AP INTERNA L AP EXTERNAL AXILLARY ([facility]) Routine 11/17/2021 documented in this encounter [...] documented as of this encounter Care Teams Vp Integrity Relationship Specialty Start Date End Date Ivana Martinez APRN PCP - General Family Medicine 05/13/22 01/27/24 documented as of this encounter
--- OUTSIDE RECORDS SUMMARY | 2025-04-27 14:12 | XMS_ITS | Encounter Summary ---
Author Organization [facility] and [facility] Address [address] [place] [address] Care Team Providers Care Internet Manager Name Role Phone Ivana Martinez HECTOR Primary Care Provider Reason for Visit * Reason Comments Medication Refill Encounter Details Date Type Department Care Team (Late st Contact Info) Description 06/20/2021 Refill [facility] Internal Medicine [address] [place] [address] Zoya Clayton MD [facility] [address] [address] Medication Refill Social History Tobacco [...] documented as of this encounter Care Teams Internet Manager Relationship Specialty Start Date End Date Ivana Martinez APRN PCP - General Family Medicine 05/13/22 01/27/24 documented as of this encounter
--- OUTSIDE RECORDS SUMMARY | 2025-04-27 14:12 | XMS_ITS | Encounter Summary ---
Author Organization [facility] and Home Health Address [address] [place] [address] Care Team Providers Care Back Gray Cloth Washer Name Role Phone Ivana Martinez MODULAR SET CREW MEMBER Primary Care Provider Encounter Details Date Type Department Care Team (Late st Contact Info) Description 05/05/2019 Scanned Document Scarlet Espinosa M.D. [address] [facility] [address] [place] [address] Jeffy Espinosa MD [address] [place] [phone] Social History Tobacco Use Types Packs/Day [...] PM EDT documented as of this encounter Functional Status documented as of this encounter Plan of Treatment Not on file documented as of this encounter Visit Diagnoses Not on filedocumented in this encounter Additional Health Concerns Infection Onset Date Last Indicated Resolved Time R/O COVID-19 03/19/2021 03/19/2021 03/19/2021 8:49 PM EDT documented as of this encounter Care Teams Back Gray Cloth Washer Relationship Specialty Start Date End Date Ivana Martinez APRN PCP - General Family Medicine 05/13/22 01/27/24 documented as of this encounter
--- OUTSIDE RECORDS SUMMARY | 2025-04-27 14:12 | XMS_ITS | Encounter Summary ---
Author Organization [facility] Address [address] [place] [address] Care Team Providers Care Drum Puller Name Role Phone Ivana Martinez METAL PRODUCTS VIEWER Primary Care Provider Reason for Visit * Reason Onset Date Comments Medication Refill 12/17/2022 Encounter Details Date Type Department Care Team (Late st Contact Info) Description 12/17/2022 Refill [facility] Dermatology at [address] [place], [place] [address] Noel Brandon MD [address] [place] [phone] Medication Refill Social History Tobacco Use Types [...] as of this encounter Care Teams Drum Puller Relationship Specialty Start Date End Date Ivana Martinez APRN PCP - General Family Medicine 05/13/22 01/27/24 documented as of this encounter
--- OUTSIDE RECORDS SUMMARY | 2025-04-27 14:12 | XMS_ITS | Encounter Summary ---
Author Organization [facility] and [facility] Address [address] [place] [address] Care Team Providers Care Fruit Coordinator Name Role Phone Andrew Martinezhanie HECTOR Primary Care Provider Reason for Visit * Reason Comments Medication Refill Encounter Details Date Type Department Care Team (Late st Contact Info) Description 06/22/2022 Refill [facility] Internal Medicine [address] [place] [address] [facility] [address] [phone] Medication Refill Social History Tobacco [...] documented as of this encounter Care Teams Fruit Coordinator Relationship Specialty Start Date End Date Ivana Martinez APRN PCP - General Family Medicine 05/13/22 01/27/24 documented as of this encounter
--- OUTSIDE RECORDS SUMMARY | 2025-04-27 14:12 | XMS_ITS | Encounter Summary ---
Author Organization [facility] and Home Health Address [address] [place] [address] Care Team Providers Care Aircraft Fueler Name Role Phone Ivana Martinez APRN Primary Care Provider Encounter Details Date Type Department Care Team (Late st Contact Info) Description 09/03/2022 Orders Only [facility] Family Medicine [address] [place], [place] [phone] Ivana Martinez APRN [address] [place] [address] [address] [place] [address] Hypertension, unspecified type; Hypercalcemia; Elevated [...] 136 - 144 mmol/L 09/03/2022 12:57 PM [facility] Potassium 4.0 3.3 - 5.3 mmol/L 09/03/2022 12:57 PM [facility] Chloride 97(L) 98 - 107 mmol/L 09/03/2022 12:57 PM [facility] CO2 29 20 - 30 mmol/L 09/03/2022 12:57 PM [facility] Anion Gap 12 7 - 17 09/03/2022 12:57 PM [facility] Glucose 116(H) 70 - 100 mg/dL 09/03/2022 12:57 PM [facility] BUN 8 6 - 20 mg/dL 09/03/2022 12:57 PM [facility] Creatinine 0.86 0.40 - 1.30 mg/dL 09/03/2022 12:57 PM [facility] Calcium 9.5 8.8 - 10.2 mg/dL 09/03/2022 12:57 PM [facility] BUN/Creatinine Ratio 9.3 8.0 - 23.0 08/06 12:57 PM [facility] Total Protein 7.4 6.6 - 8.7 g/dL 09/03/2022 12:57 PM [facility] Albumin 5.0(H) 3.6 - 4.9 g/dL 09/03/2022 12:57 PM [facility] Total Bilirubin 1.0 <=1.2 mg/dL 09/03/19 12:57 PM [facility] Alkaline Phosphatase 70 9 - 122 U/L 12:57 PM [facility] Alanine Aminotransferase (ALT) 60(H) 9 - 59 U/L 09/03/2022 12:57 PM [facility] Comment:Calcium dobesilate c an cause artificially low ALT results at therapeutic concentrations Aspartate Aminotransferase (AST) 66(H) 10 - 35 U/L 09/03/2022 12:57 PM [facility] Globulin 2.4 2.3 - 3.5 g/dL 09/03/2022 12:57 PM [facility] A/G Ratio 2.1 1.0 - 2.2 09/03/2022 12:57 PM [facility] AST/ALT Ratio 1.1 See Comment 09/03/2022 12:57 PM [facility] Comment: Adult with mild elevations of transaminases (< 5 times upper limit of normal): AST/ALT > 2 suggests alcoholic liver injury AST/ALT < 1 suggests non-alcoholic fatty liver disease (NAFLD) [place] (healthy): AST/ALT can be > 3 on day 0 AST/ALT < 2 by day 5 The thresholds provided focus on the most common etiologies of elevated serum transaminase levels and the associated alteration of AST:ALT ratios; they are not intended to exclude other feasible and clinically appropriate possibilities eGFR (Creatinine) >60 >=60 mL/min/1.73 m2 09/03/2022 12:57 PM [facility] Comment:Estimated glomerular filtration rate (eGFR) was [...] 09/03/2022 9:58 AM EST us Ivana Martinez SUPPLY ASSISTANT LAB BLOOD ORDERABLES Fi nal Result [address] [phone] * (ABNORMAL) CBC auto differential (09/03/2022 9:58 AM EST) WBC 6.2 4.0 - 11.0 x1000/ L 09/03/2022 12:01 PM [facility] RBC 5.11 4.00 - 6.00 M/ L 09/03/2022 12:01 PM [facility] Hemoglobin 16.5 13.2 - 17.1 g/dL 09/03/2022 12:01 [facility] Hematocrit 47.30 38.50 - 50.00 % 09/03/2022 12:01 [facility] MCV 92.6 80.0 - 100.0 fL 09/03/2022 12:01 [facility] MCH 32.3 27.0 - 33.0 pg 09/03/2022 12:01 PM [facility] MCHC 34.9 31.0 - 36.0 g/dL 09/03/2022 12:01 [facility] RDW-CV 12.7 11.0 - 15.0 % 09/03/2022 12:01 PM [facility] Platelets 278 150 - 420 x1000/ L 09/03/2022 12:01 PM [facility] MPV 10.2 8.0 - 12.0 fL 09/03/2022 12:01 [facility] Neutrophils 40.9 39.0 - 72.0 % 09/03/2022 12:01 PM [facility] Lymphocytes 39.7 17.0 - 50.0 % 09/03/2022 12:01 [facility] Monocytes 8.8 4.0 - 12.0 % 09/03/2022 12:01 [facility] Eosinophils 9.3(H) 0.0 - 5.0 % 09/03/2022 12:01 [facility] Basophil 1.1 0.0 - 1.4 % 09/03/2022 12:01 [facility] Immature Granulocytes 0.2 0.0 - 1.0 % 09/03/2022 12:01 PM [facility] nRBC 0.0 0.0 - 1.0 % 09/03/2022 12:01 [facility] ANC(Abs Neutrophil Count) 2.55 2.00 - 7.60 x 1000/ L 09/03/2022 12:01 [facility] Absolute Lymphocyte Count 2.48 0.60 - 3.70 x 1000/ L 09/03/2022 12:01 PM [facility] Monocyte Absolute Count 0.55 0.00 - 1.00 x 1000/ L 09/03/2022 12:01 PM [facility] Eosinophil Absolute Count 0.58 0.00 - 1.00 x 1000/ L 09/03/2022 12:01 PM [facility] Basophil Absolute Count 0.07 0.00 - 1.00 x 1000/ L 09/03/2022 12:01 PM [facility] Absolute Immature Granulocyte Count 0.01 0.00 - 0.30 x 1000/ L 09/03/2022 12:01 PM [facility] Absolute nRBC 0.00 0.00 - 1.00 x 1000/ L 09/03/2022 12:01 PM [facility] Blood Venipuncture / Unknown 09/03/2022 9:58 AM EST 09/03/2022 9:58 AM EST Ivana Petastonle SUPPLY ASSISTANT LAB BLOOD ORDERABLES Fi nal Result Performing Organization Address [facility]/ZIP Co de Phone Number [address] [phone] * Treponema pallidum (syphilis) antibody w/reflex (09/03/2022 9:58 AM EST) Treponema pallidum Ab Index <0.100 <0.9 Index 09/03/2022 1:38 PM [facility] Treponema pallidum Antibody Total, Serum Non-Reacti ve Non-Reacti ve 09/03/2022 1:38 PM [facility] Blood Venipuncture / Unknown 09/03/2022 9:58 AM EST 09/03/2022 9:58 AM EST us Ivana Petastonle SUPPLY ASSISTANT LAB BLOOD ORDERABLES Fi nal Result Performing Organization Address [facility]/ZIP Co de Phone Number [address] [phone] * (ABNORMAL) Gamma GT (09/03/2022 9:58 AM EST) GGT 133(H) <48 U/L 09/03/2022 12:57 PM [facility] Blood Venipuncture / Unknown 09/03/2022 9:58 AM EST 09/03/2022 9:58 AM EST Ivana Petastonle SUPPLY ASSISTANT LAB BLOOD ORDERABLES Fi nal Result Performing Organization Address [facility] Phone Number [address] [phone] * (ABNORMAL) Vitamin D, 25-hydroxy (09/03/2022 9:58 AM EST) Vitamin I92-Pdevzin 12.1(L) 30.0 - 100.0 ng/mL 09/03/2022 1:55 PM [facility] Comment: Vitamin D Status: Results in ng/mL <10.0: Deficient 10.0 - 29.9: Insufficient 30.0 - 100.0: Sufficient >100: Toxic Reference ranges established by [employer]. Blood Venipuncture / Unknown 09/03/2022 9:58 AM EST 09/03/2022 9:58 AM EST Ivanabhavin Lesliele SUPPLY ASSISTANT LAB BLOOD ORDERABLES Fi nal Result Performing Organization Address [facility] Phone Number [address] [phone] * (ABNORMAL) Lipid panel (09/03/2022 9:58 AM EST) Cholesterol 201(H) See Comment mg/dL 09/03/2022 12:57 PM [facility] Comment: Total Cholesterol (mg/dL) Adults (>18 years) Children (<18 years) Desirable <200 <170 Borderline-High 200-239 170-199 High >=240 >=200 HDL 76 >=40 mg/dL 09/03/2022 12:57 PM [facility] Triglycerides 157(H) See Comment mg/dL 09/03/2022 12:57 PM [facility] Comment: Triglycerides (mg/dL) Adults (>18 years) Children (<18 years) Desirable <150 Not Established Borderline-High 150-199 Not Established High 200-499 Not Established Chol/HDL Ratio 2.6 0.0 - 5.0 09/03/2022 12:57 PM [facility] LDL Calculated 98 See Comment mg/dL 09/03/2022 12:57 PM [facility] Comment: Effective 01/09/2022, LDL is calculated using the El-NIH equation, which is more accurate than the Friedewald and Gato-Sanchez equations. LDL Cholesterol (mg/dL) Adults (>18 years) Children (<18 years) Desirable <100 <110 Above Desirable 100-129 Not Established Borderline-High 130-159 110-129 High 160-189 >=130 Very High >=190 Not Established Blood Venipuncture / Unknown 09/03/2022 9:58 AM EST 09/03/2022 9:58 AM EST Ivana Martinez APRN LAB BLOOD ORDERABLES Fi nal Result [address] [phone] * (ABNORMAL) Hemoglobin A1c (09/03/2022 9:58 AM EST) Hemoglobin A1c 5.7(H) 4.0 - 5.6 % 09/03/2022 12:34 PM [facility] Comment: Hemoglobin A1c values of 5.7-6.4 [...] Glucose mg/dL 117 mg/dL 09/03/2022 12:34 PM [facility] Comment: Estimated average glucose (eAG) is a calculated value designed to estimate the expected average blood glucose level throughout the day from a single measurement of glycated hemoglobin A1C (HbA1c) and follows the calculation proposed by the [place] [employer] (Diabetes Care 31: 1-6, 2008). It may have less accuracy in children, women and patients with certain erythrocyte disorders. Blood Venipuncture / Unknown 09/03/2022 9:58 AM EST 09/03/2022 9:58 AM EST Ivana Martinez APRN LAB BLOOD ORDERABLES Fi nal Result [address] [phone] * TSH w/reflex to FT4 (BH GH LMW Q YH) (09/03/2022 9:58 AM EST) Thyroid Stimulating Hormone 3.940 See Comment IU/mL 09/03/2022 12:57 PM [facility] Comment: Male & Non- Females: 0.270-4.200 IU/mL 1st Trimester: 0.110-3.480 IU/mL 2nd Trimester: 0.320-3.850 IU/mL Blood Venipuncture / Unknown 09/03/2022 9:58 AM EST 09/03/2022 9:58 AM EST Ivana Martinez APRN LAB BLOOD ORDERABLES Fi nal Result Performing Organization Address [facility]/State/[facility] Co de Phone Number [address] [phone] documented in this encounter Visit Diagnoses Diagnosis Hypertension, unspecified type Hypercalcemia Elevated LFTs Other abnormal blood chemistry Dysuria documented in this encounter Additional Health Concerns Assessment Noted Time PHQ-9 Depression Total Score: 1 09/02/19 23 1:40 PM EST documented as of this encounter Care Teams Aircraft Fueler Relationship Specialty Start Date End Date Ivana Martinez APRN PCP - General Family Medicine 05/13/22 01/27/24 documented as of this encounter
--- OUTSIDE RECORDS SUMMARY | 2025-04-27 14:12 | XMS_ITS | Encounter Summary ---
Author Organization [facility] and Home Health Address [address] [place] [address] Care Team Providers Care Cost Reduction Engineer Name Role Phone Ivana Martinez HECTOR Primary Care Provider Reason for Visit * Reason Onset Date Comments Medication Refill 05/02/2022 Encounter Details Date Type Department Care Team (Late st Contact Info) Description 05/02/2022 Refill [facility] Internal Medicine [address] [place] [address] Zoya Clayton MD [address] [place] [phone] Medication Refill Social History Tobacco Use [...] documented as of this encounter Care Teams Cost Reduction Engineer Relationship Specialty Start Date End Date Ivana Martinez APRN PCP - General Family Medicine 05/13/22 01/27/24 documented as of this encounter
--- OUTSIDE RECORDS SUMMARY | 2025-04-27 14:12 | XMS_ITS | Encounter Summary ---
Author Organization [facility] Address [address] [place] [address] Care Team Providers Care Digital Cartographer Name Role Phone Andrew Martinezaldo YOUNG Primary Care Provider Reason for Visit * Reason Comments Medication Refill Encounter Details Date Type Department Care Team (Late st Contact Info) Description 06/30/2022 Refill [facility] Internal [facility] [address], [address] [place] [address] Souleymane Wilson DO [address] [place] [phone] Medication Refill Social History Tobacco Use Types [...] documented as of this encounter Care Teams Digital Cartographer Relationship Specialty Start Date End Date Ivana Martinez APRN PCP - General Family Medicine 05/13/22 01/27/24 documented as of this encounter
--- OUTSIDE RECORDS SUMMARY | 2025-04-27 14:12 | XMS_ITS | Encounter Summary ---
Author Organization [facility] Address [address] [place] [address] Care Team Providers Care Bonsai Culturist Name Role Phone Andrew Martinezhanie HECTOR Primary Care Provider Encounter Details Date Type Department Care Team (Late st Contact Info) Description 08/22/2021 Scanned Document [facility] [address], 1[address] Floor [place], [place] [id number] Zoya Clayton MD [facility] [address] [phone] Social History Tobacco Use Types [...] documented as of this encounter Care Teams Bonsai Culturist Relationship Specialty Start Date End Date Ivana Martinez APRN PCP - General Family Medicine 05/13/22 01/27/24 documented as of this encounter
--- OUTSIDE RECORDS SUMMARY | 2025-04-27 14:12 | XMS_ITS | Encounter Summary ---
Author Organization [facility] Address [address] [place] [address] Care Team Providers Care Assayer Name Role Phone Michelle Ivana YOUNG Primary Care Provider Encounter Details Date Type Department Care Team (Late st Contact Info) Description 08/18/2021 [facility] Encounter [facility] Internal Medicine [address] [place] [address] Leny Hernandez MD Social History Tobacco Use [...] documented as of this encounter Care Teams Assayer Relationship Specialty Start Date End Date Ivana Martinez APRN PCP - General Family Medicine 05/13/22 01/27/24 documented as of this encounter
--- OUTSIDE RECORDS SUMMARY | 2025-04-27 14:12 | XMS_ITS | Encounter Summary ---
Author Organization [facility] Address [address] [place] [address] Care Team Providers Care Supervisor Carbon Paper Coating Name Role Phone Andrew Martinezhanie HECTOR Primary Care Provider Encounter Details Date Type Department Care Team (Late st Contact Info) Description 11/17/2021 Scanned Document [facility] Internal Medicine [address], 1[address] [place], [place] [address] Zoya Clayton MD [facility] [address] [phone] Social History Tobacco Use Types [...] as of this encounter Care Teams Supervisor Carbon Paper Coating Relationship Specialty Start Date End Date Ivana Martinez APRN PCP - General Family Medicine 05/13/22 01/27/24 documented as of this encounter
--- OUTSIDE RECORDS SUMMARY | 2025-04-27 14:12 | XMS_ITS | Encounter Summary ---
Author Organization [facility] Address [address] [place] [address] Care Team Providers Care Strike Planning Applications Name Role Phone Ivana Martinez HECTOR Primary Care Provider Reason for Visit * Reason Comments Medication Refill Encounter Details Date Type Department Care Team (Late st Contact Info) Description 04/01/2022 Refill [facility] [address] [place] [address] Zoya Clayton MD [facility] [address] [phone] Medication Refill Social History Tobacco [...] encounter Miscellaneous Notes * Telephone Encounter - Sonya Savannah - 04/01/2022 12:36 PM EDT LUIS FELIPE 09/10/2021 NOV 05/13/22 w/ [facility] pt. documented in this encounter Plan of Treatment Not on file documented as of this encounter Visit Diagnoses Not on filedocumented in this encounter Additional Health Concerns Assessment Noted Time PHQ-9 Depression Total Score: 2 09/10/19 10:11 AM EST documented as of this encounter Care Teams Strike Planning Applications Relationship Specialty Start Date End Date Ivana Martinez APRN PCP - General Family Medicine 05/13/22 01/27/24 documented as of this encounter
--- OUTSIDE RECORDS SUMMARY | 2025-04-27 14:12 | XMS_ITS | Patient Health Record ---
Author Organization [facility], Address [address] [place] [address] Reason For Referral No Information Plan Of Treatment No Information Insurance Providers Payer Name Payer Address Payer Phone Subscriber Number Group Number Insured Name Patient Relationship to Insured Coverage Start Date Coverage End Date [employer] of [place] [address] [place] [address] [id number] Jay major Self - patient is the insured
--- OUTSIDE RECORDS SUMMARY | 2025-04-27 14:12 | XMS_ITS | Encounter Summary ---
Author Organization [facility] Address [address] [place] [address] Care Team Providers Care Application Dba Name Role Phone Ivana Martinez APRN Primary Care Provider Encounter Details Date Type Department Care Team (Late st Contact Info) Description 05/06/2019 Scanned Document Scarlet Espinosa M.D. [address] [facility] [address] [place] [address] Jeffy Espinosa MD [address] [place] [phone] Social History Tobacco Use Types Packs/Day [...] as of this encounter Care Teams Application Dba Relationship Specialty Start Date End Date Ivana Martinez APRN PCP - General Family Medicine 05/13/22 01/27/24 documented as of this encounter
--- OUTSIDE RECORDS SUMMARY | 2025-04-27 14:12 | XMS_ITS | Encounter Summary ---
Author Organization [facility] Address [address] [place] [address] Care Team Providers Care Design Drafter Name Role Phone Ivana Martinez HECTOR Primary Care Provider Reason for Visit * Reason Onset Date Comments Medication Refill 05/30/2022 Encounter Details Date Type Department Care Team (Late st Contact Info) Description 05/30/2022 Refill [facility] [address] [place] [address] Zoya Clayton MD [address] [place] [phone] Medication Refill Social History Tobacco Use [...] documented as of this encounter Care Teams Design Drafter Relationship Specialty Start Date End Date Ivana Martinez APRN PCP - General Family Medicine 05/13/22 01/27/24 documented as of this encounter
--- OUTSIDE RECORDS SUMMARY | 2025-04-27 14:12 | XMS_ITS | Encounter Summary ---
Author Organization [facility] Address [address] [place] [address] Care Team Providers Care Hydrologic Modeler Name Role Phone Ivana Martinez HECTOR Primary Care Provider Encounter Details Date Type Department Care Team (Late st Contact Info) Description 08/27/2021 Scanned Document [address]ie [facility] [address] [place] [address] Provider, historical . Social History Tobacco [...] documented as of this encounter Care Teams Hydrologic Modeler Relationship Specialty Start Date End Date Ivana Martinez APRN PCP - General Family Medicine 05/13/22 01/27/24 documented as of this encounter
--- OUTSIDE RECORDS SUMMARY | 2025-04-27 14:12 | XMS_ITS | Encounter Summary ---
Author Organization [facility] Address [address] [place] [address] Care Team Providers Care Production Control Specialist Name Role Phone Ivana Martinez APRN Primary Care Provider Reason for Visit * Reason Onset Date Comments Medication Refill 10/20/2022 Encounter Details Date Type Department Care Team (Late st Contact Info) Description 10/20/2022 Refill [facility] [place] [facility] [address] [place] [address] Ivana Martinez APRN [address] [place] [phone] Medication Refill Social History Tobacco Use [...] documented as of this encounter Care Teams Production Control Specialist Relationship Specialty Start Date End Date Ivana Martinez APRN PCP - General Family Medicine 05/13/22 01/27/24 documented as of this encounter
--- OUTSIDE RECORDS SUMMARY | 2025-04-27 14:12 | XMS_ITS | Encounter Summary ---
Author Organization [facility] Address [address] [place] [address] Care Team Providers Care Supervisor Chassis Assembly Name Role Phone Ivana Martinez HECTOR Primary Care Provider Reason for Visit * Reason Onset Date Comments Medication Refill 10/29/2021 Encounter Details Date Type Department Care Team (Late st Contact Info) Description 10/29/2021 Refill [facility] Internal Medicine [address], [address] [place] [address] Zoya Clayton MD [address] [place] [phone] Medication Refill Social History Tobacco Use [...] as of this encounter Care Teams Supervisor Chassis Assembly Relationship Specialty Start Date End Date Ivana Martinez APRN PCP - General Family Medicine 05/13/22 01/27/24 documented as of this encounter
--- OUTSIDE RECORDS SUMMARY | 2025-04-27 14:12 | XMS_ITS | Encounter Summary ---
Author Organization [facility] Address [address] [place] [address] Care Team Providers Care Bed Teacher Name Role Phone Physician, Pcp Unknown Primary Care Provider Ale vailable Encounter Details Date Type Department Care Team (Late st Contact Info) Description 02/22/2025 Lab Requisition [facility] - Main Lab [address] [place] [address] Selena Ramos MD [address] [place] [address] [place] [address] Tinea corporis Social History Tobacco Use Types Packs/Day Years [...] Routine 02/22/2025 12:00 AM EDT Tinea corporis documented in this encounter Results * Culture fungal, other (02/22/2025 12:00 AM EDT) Culture, Fungus Negative for Fungus after 4 Weeks 03/24/2025 10:59 AM EDT [facility] Skin 02/22/2025 02/22/2025 6:5 8 PM EDT Selena Ramos MD LAB MICROBIOLOGY - GENERAL [facility] Final Result [facility] [address] [place], [place] [address] [phone] documented in this encounter Visit Diagnoses Diagnosis Tinea corporis Dermatophytosis of the body documented in this encounter Care Teams Bed Teacher Relationship Specialty Start Date End Date Physician, Pcp Unknown PCP - General 02/22/25 documented as of this encounter
--- OUTSIDE RECORDS SUMMARY | 2025-04-27 14:12 | XMS_ITS | Encounter Summary ---
Author Organization [facility] Address [address] [place] [address] Care Team Providers Care Dental Director Name Role Phone Andrew Martinezhanie HECTOR Primary Care Provider Encounter Details Date Type Department Care Team (Late st Contact Info) Description 11/13/2020 Scanned Document [facility] [address], 1st [address] [place], [place] [address] Zoya Clayton MD [facility] [address] [phone] Social History Tobacco Use Types [...] documented as of this encounter Care Teams Dental Director Relationship Specialty Start Date End Date Ivana Martinez APRN PCP - General Family Medicine 05/13/22 01/27/24 documented as of this encounter
--- OUTSIDE RECORDS SUMMARY | 2025-04-27 14:12 | XMS_ITS | Encounter Summary ---
Author Organization [facility] Address [address] [place] [address] Care Team Providers Care Cashier Host/Hostess Name Role Phone Ivana Martinez HECTOR Primary Care Provider Reason for Visit * Reason Onset Date Comments Medication Refill 02/26/2022 Encounter Details Date Type Department Care Team (Late st Contact Info) Description 02/26/2022 Refill [facility] Internal Medicine [address] [place] [address] Zoya Clayton MD [address] [place] [phone] Medication Refill Social History Tobacco Use [...] documented as of this encounter Care Teams Cashier Host/Hostess Relationship Specialty Start Date End Date Ivana Martinez APRN PCP - General Family Medicine 05/13/22 01/27/24 documented as of this encounter
--- OUTSIDE RECORDS SUMMARY | 2025-04-27 14:12 | XMS_ITS | Encounter Summary ---
Author Organization [facility] Address [address] [place] [address] Care Team Providers Care Supervisor Chemical Name Role Phone JohannaAndrew mcelroyhanie HECTOR Primary Care Provider Encounter Details Date Type Department Care Team (Late st Contact Info) Description 09/26/2021 Scanned Document [facility] [address] [place], [place] [address] External, Provider Social History Tobacco Use Types [...] as of this encounter Care Teams Supervisor Chemical Relationship Specialty Start Date End Date Ivana Martinez APRN PCP - General Family Medicine 05/13/22 01/27/24 documented as of this encounter
--- OUTSIDE RECORDS SUMMARY | 2025-04-27 14:12 | XMS_ITS | Encounter Summary ---
Author Organization [facility] Address [address] [place] [address] Care Team Providers Care Flea Market Seller Name Role Phone Ivana Martinez APRN Primary Care Provider Encounter Details Date Type Department Care Team (Late st Contact Info) Description 05/13/2022 Transcribed Orders [facility] [facility] [address] [place], [place] [address] Ivana Martinez APRN [address] [facility] [address] [place] [address] Hypocalcemia (Primary Dx); Hypertension, unspecified [...] complete physical exam (CPE) Vitamin D deficiency HC THYROID PEROXIDASE (TPO) ANTIBODY Routine 05/13/2022 10:46 AM EDT Hypothyroidism, [...] exam (CPE) Hypothyroidism, unspecified type TESTOSTERONE, TOTAL (BH GH L LMW YH) Routine 05/13/2022 10:46 [...] See Comment ng/dL 05/13/2022 2:16 PM EDT [facility] Comment: For patients taking levothyroxine, the [...] AM EDT 05/13/2022 10:46 AM EDT Ivana emidslilibeth ATOMIC PHYSICS PROFESSOR LAB BLOOD ORDERABLES Fi nal Result Performing Organization Address City/[facility] Co de Phone Number [address] [phone] * PTH, intact without calcium (05/13/2022 10:46 AM EDT) Parathyroid Hormone, Intact 35.0 15.0 - 65.0 pg/mL 05/13/2022 12:49 PM EDT [facility] Blood Venipuncture / Unknown 05/13/2022 10:46 AM EDT 05/13/2022 10:46 AM EDT Ivanabhavin Martinez ATOMIC PHYSICS PROFESSOR LAB BLOOD ORDERABLES Fi nal Result [facility] [address] [place] [address], [facility] [phone] * (ABNORMAL) Comprehensive metabolic panel (05/13/2022 10:46 AM EDT) Sodium 138 136 - 144 mmol/L 05/13/2022 1:07 PM [facility] Potassium 3.8 3.3 - 5.3 mmol/L 05/13/2022 1:07 PM [facility] Chloride 98 98 - 107 mmol/L 05/13/2022 1:07 PM [facility] CO2 28 20 - 30 mmol/L 05/13/2022 1:07 PM [facility] Anion Gap 12 7 - 17 05/13/2022 1:07 PM [facility] Glucose 105(H) 70 - 100 mg/dL 05/13/2022 1:07 PM [facility] BUN 6 6 - 20 mg/dL 05/13/2022 1:07 PM [facility] Creatinine 0.78 0.40 - 1.30 mg/dL 05/13/2022 1:07 PM [facility] Calcium 9.6 8.8 - 10.2 mg/dL 05/13/2022 1:07 PM [facility] BUN/Creatinine Ratio 7.7(L) 8.0 - 23.0 05/04 1:07 PM [facility] Total Protein 7.5 6.6 - 8.7 g/dL 05/13/2022 1:07 PM [facility] Albumin 5.2(H) 3.6 - 4.9 g/dL 05/13/2022 1:07 PM [facility] Total Bilirubin 0.5 <=1.2 mg/dL 05/13/20 1:07 PM [facility] Alkaline Phosphatase 81 9 - 122 U/L 05/2022 1:07 PM [facility] Alanine Aminotransferase (ALT) 45 9 - 59 U/L 05/13/2022 1:07 PM [facility] Comment:Calcium dobesilate c an cause artificially low ALT results at therapeutic concentrations Aspartate Aminotransferase (AST) 48(H) 10 - 35 U/L 05/13/2022 1:07 PM EDT [facility] Globulin 2.3 2.3 - 3.5 g/dL 05/13/2022 1:07 PM [facility] A/G Ratio 2.3(H) 1.0 - 2.2 05/13/2022 1:07 PM [facility] AST/ALT Ratio 1.1 See Comment 05/13/2022 1:07 PM [facility] Comment: Adult with mild elevations of transaminases (< 5 times upper limit of normal): AST/ALT > 2 suggests alcoholic liver injury AST/ALT < 1 suggests non-alcoholic fatty liver disease (NAFLD) [place] (healthy): AST/ALT can be > 3 on day 0 AST/ALT < 2 by day 5 The thresholds provided focus on the most common etiologies of elevated serum transaminase levels and the associated alteration of AST:ALT ratios; they are not intended to exclude other feasible and clinically appropriate possibilities eGFR (Creatinine) >60 >=60 mL/min/1.73 m2 05/13/2022 1:07 PM [facility] Comment:Estimated glomerular filtration rate (eGFR) was [...] 05/13/2022 10:46 AM EDT us Ivana Martinez APRN LAB BLOOD ORDERABLES Fi nal Result [address] [phone] * (ABNORMAL) CBC auto differential (05/13/2022 10:46 AM EDT) WBC 5.5 4.0 - 11.0 x1000/ L 05/13/2022 12:09 PM T [facility] RBC 5.19 4.00 - 6.00 M/ L 05/13/2022 12:09 PM [facility] Hemoglobin 16.6 13.2 - 17.1 g/dL 05/13/2022 12:09 PM [facility] Hematocrit 45.70 38.50 - 50.00 % 05/13/2022 12:09 PM [facility] MCV 88.1 80.0 - 100.0 fL 05/13/2022 12:09 PM [facility] MCH 32.0 27.0 - 33.0 pg 05/13/2022 12:09 PM [facility] MCHC 36.3(H) 31.0 - 36.0 g/dL 05/13/2022 12:09 PM [facility] RDW-CV 12.7 11.0 - 15.0 % 05/13/2022 12:09 PM [facility] Platelets 323 150 - 420 x1000/ L 05/13/2022 12:09 PM [facility] MPV 9.5 8.0 - 12.0 fL 05/13/2022 12:09 PM [facility] Neutrophils 36.5(L) 39.0 - 72.0 % 05/13/2022 12:09 PM [facility] Lymphocytes 42.0 17.0 - 50.0 % 05/13/2022 12:09 PM [facility] Monocytes 9.2 4.0 - 12.0 % 05/13/2022 12:09 PM [facility] Eosinophils 11.2(H) 0.0 - 5.0 % 05/13/2022 12:09 PM [facility] Basophil 1.1 0.0 - 1.4 % 05/13/2022 12:09 PM [facility] Immature Granulocytes 0.0 0.0 - 1.0 % 05/13/2022 12:09 PM [facility] nRBC 0.0 0.0 - 1.0 % 05/13/2022 12:09 PM [facility] ANC(Abs Neutrophil Count) 1.99(L) 2.00 - 7.60 x 1000/ L 05/13/2022 12:09 PM [facility] Absolute Lymphocyte Count 2.29 0.60 - 3.70 x 1000/ L 05/13/2022 12:09 PM [facility] Monocyte Absolute Count 0.50 0.00 - 1.00 x 1000/ L 05/13/2022 12:09 PM EDT [facility] Eosinophil Absolute Count 0.61 0.00 - 1.00 x 1000/ L 05/13/2022 12:09 PM EDT [facility] Basophil Absolute Count 0.06 0.00 - 1.00 x 1000/ L 05/13/2022 12:09 PM EDT [facility] Absolute Immature Granulocyte Count 0.00 0.00 - 0.30 x 1000/ L 05/13/2022 12:09 PM EDT [facility] Absolute nRBC 0.00 0.00 - 1.00 x 1000/ L 05/13/2022 12:09 PM EDT [facility] Blood Venipuncture / Unknown 05/13/2022 10:46 AM EDT 05/13/2022 10:46 AM EDT Ivana Petkaleida healthle ATOMIC PHYSICS PROFESSOR LAB BLOOD ORDERABLES Fi nal Result [address] [phone] * (ABNORMAL) Thyroid antibody panel ( GH) (05/13/2022 10:46 AM EDT) Thyroid Peroxidase Ab 163(H) 0 - 99 IU/mL 05/15/2022 1:01 PM EDT [facility] Thyroglobulin Ab <10.0 0 - 125 IU/mL 05/15/2022 1:01 PM EDT [facility] Blood Venipuncture / Unknown 05/13/2022 10:46 AM EDT 05/13/2022 10:46 AM EDT Ivana PetLiving Harvest Foodsle ATOMIC PHYSICS PROFESSOR LAB BLOOD [place] [address], [facility] [phone] * (ABNORMAL) THYROID PEROXIDASE ANTIBODY (05/13/2022 10:46 AM EDT) Thyroid Peroxidase Ab 163(H) 0 - 99 IU/mL 05/15/2022 1:01 PM EDT [facility] Blood Venipuncture / Unknown 05/13/2022 10:46 AM EDT 05/13/2022 10:46 AM EDT [facility] LAB BLOOD ORDERABLES Fi nal Result Performing Organization Address [facility]/[place] de Phone Number [address] [phone] * TESTOSTERONE, TOTAL (BH GH L LMW YH) (05/13/2022 10:46 AM EDT) Testosterone, Total 302 229 - 902 ng/dL 05/13/2022 1:18 PM EDT [facility] Comment: The following testosterone reference ranges [...] men regardless of BMI status. Decade (Years) Testosterone Reference Range (ng/dL) 19 to 39 229-902 40 to 49 208-902 50 to 59 192-902 60 to 69 190-902 70 to 79 190-902 80 to 89 119-902 Reference: Angus ANDRE et al. Harmonized Reference Ranges for Circulating Testosterone Levels in Men of Four Cohort Studies in the [place] and [place]. J Clin Endocrinol Metab. 2017 Apr 1;102(4):1551-9426. Blood Venipuncture / Unknown 05/13/2022 10:46 AM EDT 05/13/2022 10:46 AM EDT Ivana Martinez APRN LAB BLOOD ORDERABLES Fi nal Result Performing Organization Address [facility]/ZIP Co de Phone Number [address] [phone] * (ABNORMAL) Gamma GT (05/13/2022 10:46 AM EDT) GGT 92(H) <48 U/L 05/13/2022 12:53 PM EDT [facility] Blood Venipuncture / Unknown 05/13/2022 10:46 AM EDT 05/13/2022 10:46 AM EDT [facility] ATOM[facility] PHYSICS PROFESSOR LAB BLOOD ORDERABLES Fi nal Result Performing Organization Address [facility]/[place] de Phone Number [address] [phone] * (ABNORMAL) Vitamin D, 25-hydroxy (05/13/2022 10:46 AM EDT) Vitamin U86-Frfwsui 16.9(L) 30.0 - 100.0 ng/mL 05/13/2022 1:47 PM EDT [facility] Comment: Vitamin D Status: Results in ng/mL <10.0: Deficient 10.0 - 29.9: Insufficient 30.0 - 100.0: Sufficient >100: Toxic Reference ranges established by [employer]. Blood Venipuncture / Unknown 05/13/2022 10:46 AM EDT 05/13/2022 10:46 AM EDT Ivana Martinez ATOMIC PHYSICS PROFESSOR LAB BLOOD ORDERABLES Fi nal Result Performing Organization Address [facility]/[place] de Phone Number [address] [phone] * Hepatitis C Ab with reflex to HCV PCR (05/13/2022 10:46 AM EDT) Hepatitis C Ab Initial Result 0.03 S/CO 05/13/2022 1:44 PM EDT [facility] Hepatitis C Ab Interpretation Non-React lilo Non-React lilo 05/13/2022 1:44 PM EDT [facility] Blood Venipuncture / Unknown 05/13/2022 10:46 AM EDT 05/13/2022 10:46 AM EDT Ivana Martinez APRN LAB BLOOD ORDERABLES Fi nal Result [facility] [address] [place] [address], [facility] [phone] * (ABNORMAL) Lipid panel (05/13/2022 10:46 AM EDT) Cholesterol 185 See Comment mg/dL 05/13/2022 1:07 PM [facility] Comment: Total Cholesterol (mg/dL) Adults (>18 years) Children (<18 years) Desirable <200 <170 Borderline-High 200-239 170-199 High >=240 >=200 HDL 63 >=40 mg/dL 05/13/2022 1:07 PM [facility] Triglycerides 268(H) See Comment mg/dL 05/13/2022 1:07 PM [facility] Comment: Triglycerides (mg/dL) Adults (>18 years) Children (<18 years) Desirable <150 Not Established Borderline-High 150-199 Not Established High 200-499 Not Established Chol/HDL Ratio 2.9 0.0 - 5.0 05/13/2022 1:07 PM [facility] LDL Calculated 79 See Comment mg/dL 05/13/2022 1:07 PM [facility] Comment: Effective 01/09/2022, LDL is calculated using the El-KRISTIN equation, which is more accurate than the Friedewald and Gato-Sanchez equations. LDL Cholesterol (mg/dL) Adults (>18 years) Children (<18 years) Desirable <100 <110 Above Desirable 100-129 Not Established Borderline-High 130-159 110-129 High 160-189 >=130 Very High >=190 Not Established Blood Venipuncture / Unknown 05/13/2022 10:46 AM EDT 05/13/2022 10:46 AM EDT [facility] LAB BLOOD ORDERABLES Fi nal Result Performing Organization Address City/[facility]/ZIP Co de Phone Number [address] [phone] * (ABNORMAL) Vitamin B12 (05/13/2022 10:46 AM EDT) Vitamin B12 168(L) 232 - 1,245 pg/mL 05/13/2022 1:40 PM EDT [facility] Blood Venipuncture / Unknown 05/13/2022 10:46 AM EDT 05/13/2022 10:46 AM EDT [facility] LAB BLOOD ORDERABLES Fi nal Result Performing Organization Address [facility]/ZIP Co de Phone Number [address] [phone] * (ABNORMAL) Hemoglobin A1c (05/13/2022 10:46 AM EDT) Hemoglobin A1c 5.7(H) 4.0 - 5.6 % 05/13/2022 1:42 PM T [facility] Comment: Hemoglobin A1c values [...] mg/dL 117 mg/dL 05/13/2022 1:42 PM EDT [facility] Comment: Estimated average glucose (eAG) is a calculated value designed to estimate the expected average blood glucose level throughout the day from a single measurement of glycated hemoglobin A1C (HbA1c) and follows the calculation proposed by the [place] Diabetes Association (Diabetes Care 31: 1-6, 2008). It may have less accuracy in children, women and patients with certain erythrocyte disorders. Blood Venipuncture / Unknown 05/13/2022 10:46 AM EDT 05/13/2022 10:46 AM EDT Ivana Martinez APRN LAB BLOOD ORDERABLES Fi nal Result Performing Organization Address [facility]/ZIP Co de Phone Number [address] [phone] * (ABNORMAL) TSH w/reflex to FT4 (BH GH LMW Q YH) (05/13/2022 10:46 AM EDT) Thyroid Stimulating Hormone 4.470(H) See Comment IU/mL 05/13/2022 1:07 PM EDT [facility] Comment: Male & Non- Females: 0.270-4.200 IU/mL 1st Trimester: 0.110-3.480 IU/mL 2nd Trimester: 0.320-3.850 IU/mL Blood Venipuncture / Unknown 05/13/2022 10:46 AM EDT 05/13/2022 10:46 AM EDT Ivanaaldo Martinez ATOMIC PHYSICS PROFESSOR LAB BLOOD ORDERABLES Fi nal Result [place] [phone], [facility] [phone] documented in this encounter Visit Diagnoses Diagnosis [...] documented as of this encounter Care Teams Flea Market Seller Relationship Specialty Start Date End Date Ivana Martinez APRN PCP - General Family Medicine 05/13/22 01/27/24 documented as of this encounter
--- OUTSIDE RECORDS SUMMARY | 2025-04-27 14:12 | XMS_ITS ---
Author Name [facility] Organization Unknown Encounters Encounter Type Encounter Reason Primary Diagnosis Location Date Ambulatory Other microscopic hematuria Other microscopic hematuria [facility] 10/21/2022 Ambulatory [facility] 10/29/2021 Ambulatory [facility] 10/29/2021 Ambulatory Diarrhea [facility] 10/12 Care Team Organization Name Specialty Phone Email Start Date End [facility] 06/06/2023 024 [facility] 04/26/2023 024 [facility] NO PCP Primary Care 10/21/2022 10/21/2022 [facility] 10/21/2022 [facility] 09/29/2022 03/22/2024 [facility] Zoya Clayton Primary Care 10/0210/12/2021 [facility]
--- OUTSIDE RECORDS SUMMARY | 2025-04-27 14:12 | XMS_ITS | Encounter Summary ---
Author Organization [facility] Address [address] [place] [address] Care Team Providers Care Ship Construction Teacher Name Role Phone Pcp, No Primary Care Provider Unavailabl e Encounter Details Date Type Department Care Team (Late st Contact Info) Description 10/12/2022 Scanned Document [facility] [address] [address] Matthew Rodney MD [address] [place] [phone] Social History Tobacco Use Types Packs/Day [...] on filedocumented in this encounter Care Teams Ship Construction Teacher Relationship Specialty Start Date End Date Pcp, No PCP - General 10/21/22 documented as of this encounter
--- OUTSIDE RECORDS SUMMARY | 2025-04-27 14:12 | XMS_ITS | Encounter Summary ---
Author Organization [facility] Address [address] [place] [address] Care Team Providers Care Software Technician Name Role Phone Ivana Martinez HECTOR Primary Care Provider Reason for Visit * Reason Comments Medication Refill Encounter Details Date Type Department Care Team (Late Contact Info) Description 12/30/2021 Refill [facility] G[facility] [address] [facility] [address] [place], [place] [address] Matthew Huynh MD [address] [place] [address] Medication Refill Social History Tobacco [...] documented as of this encounter Care Teams Software Technician Relationship Specialty Start Date End Date Ivana Martinez APRN PCP - General Family Medicine 05/13/22 01/27/24 documented as of this encounter
--- OUTSIDE RECORDS SUMMARY | 2025-04-27 14:12 | XMS_ITS | Encounter Summary ---
Author Organization [facility] Address [address] [place] [address] Care Team Providers Care Puff Ironer Name Role Phone Ivana Martinez HECTOR Primary Care Provider Reason for Visit * Reason Onset Date Comments Medication Refill 06/25/2022 Encounter Details Date Type Department Care Team (Late st Contact Info) Description 06/25/2022 Refill [facility] Internal Medicine [address] [place] [address] Zoya Clayton MD [address] [place] [phone] Medication Refill Social History Tobacco Use [...] documented as of this encounter Care Teams Puff Ironer Relationship Specialty Start Date End Date Ivana Martinez APRN PCP - General Family Medicine 05/13/22 01/27/24 documented as of this encounter
--- OUTSIDE RECORDS SUMMARY | 2025-04-27 14:12 | XMS_ITS | Encounter Summary ---
Author Organization [facility] Address [address] [place] [address] Care Team Providers Care Shoulder Joiner Name Role Phone Ivana Martinez APRN Primary Care Provider Encounter Details Date Type Department Care Team (Late st Contact Info) Description 09/03/2022 Transcribed Orders [place] [facility] [address] [place], [place] [address] Ivana Martinez APRN [address] [facility] [address] [place] [address] Dysuria (Primary Dx) Social History [...] Date/Time Associated Diagnosis Comments URINE MICROSCOPIC ([facility] LMW YH) Routine 09/03/2022 10:54 AM EST Dysuria URINALYSIS-MACROSCOP IC W/REFLEX MICROSCOPIC Routine 09/03/2022 10:54 AM EST Dysuria C. TRACHOMATIS / N. GONORRHOEAE, NAAT ( GH L LMW YH) Routine 09/03/2022 10:54 AM EST Dysuria NEISSERIA GONORRHEA, NAAT (LAB ORDER ONLY) ([facility] L LMW YH) Routine 09/03/2022 10:54 AM EST Dysuria CHLAMYDIA TRACHOMATIS, NAAT (LAB ORDER ONLY) ([facility] L LMW YH) Routine 09/03/2022 10:54 AM EST Dysuria URINE CULTURE Routine 09/03/2022 10:54 AM EST Dysuria documented in this encounter Results * (ABNORMAL) Urine microscopic ([facility] LMW YH) (09/03/2022 10:54 AM EST) RBC/HPF, UA 6(H) 0 - 2 /HPF 09/03/2022 12:05 PM [facility] WBC/HPF, UA 1 0 - 5 /HPF 09/03/2022 12:05 PM [facility] Bacteria, UA Rare None-Rare /HPF 09/03/2022 12:05 PM [facility] Hyaline Casts, UA 1 0 - 3 /LPF 09/03/2022 12:05 PM [facility] Urine Collection / Unknown 09/03/2022 10:54 AM EST 09/03/2022 10:54 AM EST us Ivana Martinez TV NEWS DIRECTOR URINE ORDERABLES Final Result [address] [phone] * Chlamydia trachomatis, NAAT ( GH LMW YH) (09/03/2022 10:54 AM EST) Chlamydia DNA Probe Negative Negative 09/04/2022 11:43 AM [facility] Comment:The Aptima Combo2 As say is not intended for the evaluation of suspected sexual abuse or for other medico-legal indications. Specimen Source Urine (Dirty Catch) for DNA Probe 09/04/2022 11:43 AM [facility] Culture URINE SPECIMEN / Unknown Collection / Unknown 09/03/2022 10:54 AM EST 09/03/2022 10:54 AM EST Ivana Martinez APRN MICROBIOLOGY - GENERAL ORDERABLES Final Result Performing Organization Address [facility]/ZIP Co de Phone Number [address] [phone] * Neisseria gonorrhoeae, NAAT ( GH L LMW YH) (09/03/2022 10:54 AM EST) Neisseria gonorrhoeae, DNA Probe Negative Negative 09/04/2022 11:43 AM [facility] Comment:The Aptima Combo2 As say is not intended for the evaluation of suspected sexual abuse or for other medico-legal indications. Specimen Source Urine (Dirty Catch) for DNA Probe 09/04/2022 11:43 AM [facility] Culture URINE SPECIMEN / Unknown Collection / Unknown 09/03/2022 10:54 AM EST 09/03/2022 10:54 AM EST Ivana Martinez APRN MICROBIOLOGY - GENERAL ORDERABLES Final Result Performing Organization Address [facility]/ZIP Co de Phone Number [address] [phone] * (ABNORMAL) Urinalysis-macroscopic w/reflex microscopic (09/03/2022 10:54 AM EST) Clarity, UA Clear Clear 09/03/2022 11:59 AM [facility] Color, UA Yellow Yellow, Colorless 09/03/2022 11:59 AM [facility] Specific [place], UA 1.015 1.005 - 1.030 09/03/2022 11:59 AM [facility] pH, UA 6.5 5.5 - 7.5 09/03/2022 11:59 AM [facility] Protein, UA Negative Negative, Trace 09/03/2022 11:59 AM [facility] Glucose, UA Negative Negative 09/03/2022 11:59 AM [facility] Ketones, UA Negative Negative 09/03/2022 11:59 AM [facility] Blood, UA 2+(A) Negative 09/03/2022 11:59 AM [facility] Bilirubin, UA Negative Negative 09/03/2022 11:59 AM [facility] Leukocytes, UA Negative Negative 09/03/2022 11:59 AM [facility] Nitrite, UA Negative Negative 09/03/2022 11:59 AM [facility] Urobilinogen, UA <2.0 <=2.0 mg/dL 09/03/2022 11:59 AM [facility] Urine Collection / Unknown 09/03/2022 10:54 AM EST 09/03/2022 10:54 AM EST Ivana Martinez TV NEWS DIRECTOR URINE ORDERABLES Final Result Performing Organization Address City/[facility]/ZIP Co de Phone Number [address] [phone] * Urine culture (09/03/2022 10:54 AM EST) Urine Culture, Routine No Growth 09/04/2022 1:27 PM [facility] Culture URINE SPECIMEN OBTAINED BY CLEAN CATCH PROCEDURE / Unknown Collection / Unknown 09/03/2022 10:54 AM EST 09/03/2022 10:54 AM EST Ivana Martinez APRN MICROBIOLOGY - GENERAL ORDERABLES Final Result Performing Organization Address [facility]/ZIP Co de Phone Number [address] [phone] documented in this encounter Visit Diagnoses Diagnosis Dysuria- Primary documented in this encounter Additional Health Concerns Assessment Noted Time PHQ-9 Depression Total Score: 1 09/02/19 23 1:40 PM EST documented as of this encounter Care Teams Shoulder Joiner Relationship Specialty Start Date End Date Ivana Martinez APRN PCP - General Family Medicine 05/13/22 01/27/24 documented as of this encounter
--- OUTSIDE RECORDS SUMMARY | 2025-04-27 14:12 | XMS_ITS | Encounter Summary ---
Author Organization [facility]up and Home [facility] Address [address] [place] [address] Care Team Providers Care Mask Inspector Name Role Phone Ivana Martinez HECTOR Primary Care Provider Reason for Visit * Reason Comments Medication Refill Encounter Details Date Type Department Care Team (Late st Contact Info) Description 06/01/2021 Refill [facility] Internal Medicine [address] [place] [address] Zoya Clayton MD [facility] [address] [phone] Medication Refill Social [...] documented as of this encounter Care Teams Mask Inspector Relationship Specialty Start Date End Date Ivana Martinez APRN PCP - General Family Medicine 05/13/22 01/27/24 documented as of this encounter
--- OUTSIDE RECORDS SUMMARY | 2025-04-27 14:12 | XMS_ITS | Clinical Summary ---
Author Organization [facility] Address [address] [place] [address] Care Team Providers Care Equine Intern Name Role Phone Pcp, No Primary Care [...] of 3 - 19+ 3-dose series) 2005 HPV Vaccines (1 - 3-dose SCD M series) 2013 Influenza Vaccine 03/04/2025 05/13/2022, 06/06/2021 COVID-19 Vaccine (3 - 2024-2 6 season) 2025 02/03/2021, 01/11/2021 Pneumococcal Vaccine: Pediatric (0-5 Years) and At-Risk Patients (6 to 49 Years) Aged Out No longer eligible b ased on patient's age to complete this topic Insurance [facility] Care Teams Equine Intern Relationship Specialty Start Date End Date Pcp, No PCP - General 10/21/22
--- OUTSIDE RECORDS SUMMARY | 2025-04-27 14:12 | XMS_ITS | Encounter Summary ---
Author Organization [facility] Address [address] [place] [address] Care Team Providers Care Personnel Administrator Name Role Phone Andrew Martinezhanie HECTOR Primary Care Provider Encounter Details Date Type Department Care Team (Late st Contact Info) Description 09/26/2021 Scanned Document [facility] Internal Medicine [address], 1st Floor [place], [place] [address] Zoya Clayton MD [facility] [address] [phone] Social History Tobacco Use Types [...] documented as of this encounter Care Teams Personnel Administrator Relationship Specialty Start Date End Date Ivana Martinez APRN PCP - General Family Medicine 05/13/22 01/27/24 documented as of this encounter
--- OUTSIDE RECORDS SUMMARY | 2025-04-27 14:12 | XMS_ITS | Encounter Summary ---
Author Organization [facility] Address [address] [place] [address] Care Team Providers Care Geothermal Technician Name Role Phone Ivana Martinez HECTOR Primary Care Provider Reason for Visit * Reason Onset Date Comments Medication Refill 07/12/2021 Encounter Details Date Type Department Care Team (Late st Contact Info) Description 07/12/2021 Refill [facility] Internal Medicine [address], 1st [place] [address] Zoya Clayton MD [address] [place] [phone] Medication Refill Social History Tobacco Use [...] documented as of this encounter Care Teams Geothermal Technician Relationship Specialty Start Date End Date Ivana Martinez APRN PCP - General Family Medicine 05/13/22 01/27/24 documented as of this encounter
--- OUTSIDE RECORDS SUMMARY | 2025-04-27 14:12 | XMS_ITS | Encounter Summary ---
Author Organization [facility] Address [address] [place] [address] Care Team Providers Care Clinical Rehabilitation Coordinator Name Role Phone Ivana Martinez HECTOR Primary Care Provider Reason for Visit * Reason Onset Date Comments Medication Refill 08/28/2022 Encounter Details Date Type Department Care Team (Late st Contact Info) Description 08/28/2022 Refill [facility] Internal Medicine [address], 1st [place] [address] Zoya Clayton MD [address] [place] [phone] Medication Refill Social History Tobacco Use [...] as of this encounter Care Teams Clinical Rehabilitation Coordinator Relationship Specialty Start Date End Date Ivana Martinez APRN PCP - General Family Medicine 05/13/22 01/27/24 documented as of this encounter
--- OUTSIDE RECORDS SUMMARY | 2025-04-27 14:12 | XMS_ITS | Encounter Summary ---
Author Organization [facility] and [facility] Address [address] [place] [address] Care Team Providers Care Senior Sql Server Dba Name Role Phone Ivana Martinez HECTOR Primary Care Provider Reason for Visit * Reason Onset Date Comments Medication Refill 12/31/2022 Encounter Details Date Type Department Care Team (Late st Contact Info) Description 12/31/2022 Refill [facility] Internal Medicine [address], 1st [place] [address] Zoya Clayton MD [address] [place] [phone] Medication Refill Social History Tobacco Use [...] as of this encounter Care Teams Senior Sql Server Dba Relationship Specialty Start Date End Date Ivana Martinez APRN PCP - General Family Medicine 05/13/22 01/27/24 documented as of this encounter
== END 2025-04-27 11:45 | disposition home or self-care (01) ==
LOC: HO.HMCH 11:00
PROVIDERS: PCP Internal Medicine; Visit Provider Internal Medicine
DX: E03.9 Hypothyroidism, unspecified (principal); I10 Essential (primary) hypertension; R07.89 Other chest pain; F17.200 Nicotine dependence, unspecified, uncomplicated; Z00.00 Encounter for general adult medical examination without abnormal findings

== ENCOUNTER → 2025-04-27 11:00 | Outpatient (BNVA) | payer OTHER, SELFPAY | PROVIDERS: PCP Internal Medicine; Visit Provider Internal Medicine | DX: Z00.00 Encounter for general adult medical examination without abnormal findings (principal); E03.9 Hypothyroidism, unspecified; I10 Essential (primary) hypertension; R07.89 Other chest pain; R12 Heartburn; F17.220 Nicotine dependence, chewing tobacco, uncomplicated; Z13.31 Encounter for screening for depression | CPT/HCPCS: 99395 ==

== ENCOUNTER 2025-05-05 08:43 | Outpatient (REF) | payer OTHER, SELFPAY ==
--- OUTSIDE RECORDS SUMMARY | 2022-10-21 14:14 | XMS_ITS | Encounter Summary ---
Author Organization [facility] Address [address] [place] [address] Care Team Providers Care Glue Reel Operator Name Role Phone Pcp, No Primary Care Provider Unavailabl e Reason for Referral * Diagnostic Imaging (Routine) - Closed Specialty Diagnoses / Procedures Referred By Christian chatman Referred To Contact Diagnoses Microhematuria Procedures CT Urogram w w/o contrast w/3D Matthew Rodney MD [address] [place] [address] Phone: tel: fax: Referral ID Status Reason Start Date Expiration Date Visits Re quested Visits Authorized [id number] Closed 10/08/2022 12/11/2022 1 1 Reason for Visit * Diagnostic Imaging (Routine) - Closed Specialty Diagnoses / Procedures Referred By Christian chatman Referred To Contact Diagnoses Microhematuria Procedures CT Urogram w w/o contrast w/3D Matthew Rodney MD [address] [place] [address] Phone: tel: fax: Referral ID Status Reason Start Date Expiration Date Visits Re quested Visits Authorized [id number] Closed 10/08/2022 12/11/2022 1 1 Encounter Details Date Type Department Care Team (Late st Contact Info) Description 10/21/2022 2:14 PM EDT Hospital Encounter [facility] [address] [place] [phone] Microhematuria Social History Tobacco Use Types Packs/Day [...] mL documented in this encounter Care Teams Glue Reel Operator Relationship Specialty Start Date End Date Pcp, No PCP - General 10/21/22 documented as of this encounter
--- NOTE | 2025-05-05 08:50 | ECG_ITS ---
Test Reason : chest pain Blood Pressure : */* mmHG Vent. Rate : 74 BPM Atrial Rate : 74 BPM P-R Int : 168 ms QRS Dur : 100 ms QT Int : 388 ms P-R-T Axes : 68 70 41 degrees QTcB Int : 430 ms Sinus rhythm with marked sinus arrhythmia Normal ECG No previous ECGs available Referred By: Boom Salomon Electronically Signed By: CAROL SEARS
--- OUTSIDE RECORDS SUMMARY | 2025-05-05 09:10 | XMS_ITS | Encounter Summary ---
Author Organization [facility] and [facility] Address [address] [place] [address] Care Team Providers Care First Grade Teacher Name Role Phone Ivana Martinez HECTOR Primary Care Provider Reason for Visit * Reason Comments Medication Refill Encounter Details Date Type Department Care Team (Late st Contact Info) Description 09/29/2020 Refill [facility] Family Medicine [address] [place], [place] [phone] Zoya Clayton MD [address] [phone] Medication Refill Social History Tobacco [...] documented as of this encounter Care Teams First Grade Teacher Relationship Specialty Start Date End Date Ivana Martinez APRN PCP - General Family Medicine 05/13/22 01/27/24 documented as of this encounter
--- OUTSIDE RECORDS SUMMARY | 2025-05-05 09:10 | XMS_ITS | Encounter Summary ---
Author Organization [facility] Address [address] [place] [address] Care Team Providers Care Lockstitch Sleeve Setter Name Role Phone Ivana Martinez HECTOR Primary Care Provider Encounter Details Date Type Department Care Team (Late st Contact Info) Description 11/08/2020 Scanned Document [address] [employer] [facility] [address] [place] [address] External, Provider Social History Tobacco Use [...] documented as of this encounter Care Teams Lockstitch Sleeve Setter Relationship Specialty Start Date End Date Ivana Martinez APRN PCP - General Family Medicine 05/13/22 01/27/24 documented as of this encounter
--- OUTSIDE RECORDS SUMMARY | 2025-05-05 09:10 | XMS_ITS | Encounter Summary ---
Author Organization [facility] Address [address] [place] [address] Care Team Providers Care Hand Grinder Name Role Phone Physician, Pcp Unknown Primary Care Provider Ale vailable Encounter Details Date Type Department Care Team (Late st Contact Info) Description 08/19/2024 Lab Requisition [facility] - Main Lab [address] [facility] [place] [address] Denzel Longo MD [address] [place] [address] [place] [phone] Local infection of the skin and subcutaneous [...] Result [facility] [address] [place] [address], documented in this encounter Visit Diagnoses Diagnosis Local infection of the skin and subcutaneous tissue, unspecified documented in this encounter Care Teams Hand Grinder Relationship Specialty Start Date End Date Physician, Pcp Unknown PCP - General 02/22/25 documented as of this encounter
--- OUTSIDE RECORDS SUMMARY | 2025-05-05 09:10 | XMS_ITS | Encounter Summary ---
Author Organization [facility] Address [address] [place] [address] Care Team Providers Care Inspector And Clerk Name Role Phone Ivana Martinez APRN Primary Care Provider Encounter Details Date Type Department Care Team (Late st Contact Info) Description 02/26/2023 Orders Only [facility] [address] [place], [place] [phone] Ivana Martinez APRN [address] [place] [address] [address] [place] [address] Hypertension, unspecified type; Hypothyroidism, unspecified [...] - 11.0 x1000/ L 02/26/2023 3:06 PM [facility] RBC 5.06 4.00 - 6.00 M/ L 02/26/2023 3:06 PM [facility] Platelets 331 150 - 420 x1000/ L 02/26/2023 3:06 PM [facility] 0.0 - 1.0 % 02/26/2023 3:06 PM [facility] nRBC 0.0 0.0 - 1.0 % 02/26/2023 3:06 PM EDT [facility] ANC(Abs Neutrophil Count) 2.30 2.00 - 7.60 x 1000/ L 02/26/2023 3:06 PM T [facility] Absolute Lymphocyte Count 2.00 0.60 - 3.70 x 1000/ L 02/26/2023 3:06 PM T [facility] Monocyte Absolute Count 0.51 0.00 - 1.00 x 1000/ L 02/26/2023 3:06 PM EDT [facility] Eosinophil Absolute Count 0.47 0.00 - 1.00 x 1000/ L 02/26/2023 3:06 PM T [facility] Basophil Absolute Count 0.07 0.00 - 1.00 x 1000/ L 02/26/2023 3:06 PM [facility] Absolute Immature Granulocyte Count 0.02 0.00 - 0.30 x 1000/ L 02/26/2023 3:06 PM [facility] Absolute nRBC 0.00 0.00 - 1.00 x 1000/ L 02/26/2023 3:06 PM [facility] Blood Venipuncture / Unknown 02/26/2023 11:12 AM EDT 02/26/2023 11:12 AM EDT us Ivana Martinez DEATH CLEARANCE COORDINATOR LAB BLOOD ORDERABLES Fi nal Result [address] [phone] * (ABNORMAL) Comprehensive metabolic panel (02/26/2023 11:12 AM EDT) Sodium 140 136 - 144 mmol/L 02/26/2023 3:26 PM EDT [facility] Potassium 4.1 3.3 - 5.3 mmol/L 02/26/2023 3:26 PM T [facility] Chloride 99 98 - 107 mmol/L 02/26/2023 3:26 PM EDT [facility] CO2 30 20 - 30 mmol/L 02/26/2023 3:26 PM T [facility] Anion Gap 11 7 - 17 [...] estimate of kidney function. On 03/19/22 all [facility] Clinical Labs and [facility] began using a mbl-qvzb-nyetv formula for estimating GFR called CKD-EPI Creatinine 2020. This equation reports eGFR based on creatinine, patient age, clinical sex, and is standardized to a body surface area of 1.73 m2. For the same creatinine, this new race-free eGFR will be lower than prior reported Black eGFR results and higher than prior Non-Black eGFR results. For further guidance, please refer to the CKD: Adult Tape Transferrer Signature pathway. Blood Venipuncture / Unknown 02/26/2023 11:12 AM EDT 02/26/2023 11:12 AM EDT Ivana Martinez APRN LAB BLOOD ORDERABLES Fi nal Result [address] [phone] * (ABNORMAL) Hemoglobin A1c (02/26/2023 11:12 AM EDT) Hemoglobin A1c 5.8(H) 4.0 - 5.6 % 02/26/2023 7:37 PM T [facility] Comment: Hemoglobin A1c values of [...] mg/dL 120 mg/dL 02/26/2023 7:37 PM T [facility] Comment: Estimated average glucose (eAG) is a calculated value designed to estimate the expected average blood glucose level throughout the day from a single measurement of glycated hemoglobin A1C (HbA1c) and follows the calculation proposed by the [place] Diabetes Association (Diabetes Care 31: 1-6, 2008). It may have less accuracy in children, women and patients with certain erythrocyte disorders. Blood Venipuncture / Unknown 02/26/2023 11:12 AM EDT 02/26/2023 11:12 AM EDT us Ivana Martinez DEATH CLEARANCE COORDINATOR LAB BLOOD ORDERABLES Fi nal Result Performing Organization Address City/State/[facility] Co de Phone Number [address] [phone] * (ABNORMAL) Lipid panel (02/26/2023 11:12 AM EDT) Cholesterol 180 See Comment mg/dL 02/26/2023 3:26 PM T [facility] Comment: Total Cholesterol (mg/dL) Adults (>18 years) Children (<18 years) Desirable <200 <170 Borderline-High 200-239 170-199 High >=240 >=200 HDL 62 >=40 mg/dL 02/26/2023 3:26 PM T [facility] Triglycerides 161(H) See Comment mg/dL 02/26/2023 3:26 PM [facility] Comment: Triglycerides (mg/dL) Adults (>18 years) Children (<18 years) Desirable <150 Not Established Borderline-High 150-199 Not Established High 200-499 Not Established Chol/HDL Ratio 2.9 0.0 - 5.0 02/26/2023 3:26 PM T [facility] LDL Calculated 91 See Comment mg/dL 02/26/2023 3:26 PM EDT [facility] Comment: Effective 01/09/2022, LDL is calculated using the El-NIH equation, which is more accurate than the Friedewald and Gato-Sanchez equations. LDL Cholesterol (mg/dL) Adults (>18 years) Children (<18 years) Desirable <100 <110 Above Desirable 100-129 Not Established Borderline-High 130-159 110-129 High 160-189 >=130 Very High >=190 Not Established Blood Venipuncture / Unknown 02/26/2023 11:12 AM EDT 02/26/2023 11:12 AM EDT [employer] LAB BLOOD ORDERABLES Fi nal Result Performing Organization Address [facility] Co de Phone Number [address] [phone] * (ABNORMAL) Vitamin D, 25-hydroxy (02/26/2023 11:12 AM EDT) Vitamin C79-Nfjzurh 11.1(L) 30.0 - 100.0 ng/mL 02/27/2023 10:42 AM EDT [facility] Comment: Vitamin D Status: Results in ng/mL <10.0: Deficient 10.0 - 29.9: Insufficient 30.0 - 100.0: Sufficient >100: Toxic Reference ranges established by [employer]. Blood Venipuncture / Unknown 02/26/2023 11:12 AM EDT 02/26/2023 11:12 AM EDT [employer] LAB BLOOD ORDERABLES Fi nal Result Performing Organization Address [facility]/ZIP Co de Phone Number [address] [phone] * (ABNORMAL) Gamma GT (02/26/2023 11:12 AM EDT) GGT 108(H) <48 U/L 02/26/2023 3:26 PM EDT [facility] Blood Venipuncture / Unknown 02/26/2023 11:12 AM EDT 02/26/2023 11:12 AM EDT Ivana Martinez [employer] [facility] LAB BLOOD ORDERABLES Fi nal Result Performing Organization Address [facility] Co de Phone Number [address] [phone] * TSH w/reflex to FT4 (BH GH LMW Q YH) (02/26/2023 11:12 AM EDT) Thyroid Stimulating Hormone 2.550 See Comment IU/mL 02/26/2023 3:26 PM EDT [facility] Comment: Male & Non- Females: 0.270-4.200 IU/mL 1st Trimester: 0.110-3.480 IU/mL 2nd Trimester: 0.320-3.850 IU/mL Blood Venipuncture / Unknown 02/26/2023 11:12 AM EDT 02/26/2023 11:12 AM EDT Ivana Martinez DEATH CLEARANCE COORDINATOR LAB BLOOD ORDERABLES Fi nal Result Performing Organization Address [facility]/ZIP Co de Phone Number [address] [phone] documented in this encounter Visit Diagnoses Diagnosis Hypertension, unspecified type Hypothyroidism, unspecified type LFT elevation Other abnormal blood chemistry Vitamin D deficiency Unspecified vitamin D deficiency documented in this encounter Additional Health Concerns Assessment Noted Time PHQ-9 Depression Total Score: 0 02/27/20 23 10:41 AM EDT documented as of this encounter Care Teams Inspector And Clerk Relationship Specialty Start Date End Date Ivana Martinez APRN PCP - General Family Medicine 05/13/22 01/27/24 documented as of this encounter
--- OUTSIDE RECORDS SUMMARY | 2025-05-05 09:10 | XMS_ITS | Clinical Summary ---
Author Organization [address] [facility] Address [address] [place] [address] Phone Care Team Providers Care Ed Manager Name Role Phone Physician, Pcp Unknown Primary Care Provider Ale vailable Encounters Date Type Department Care Team Description 02/22/2025 Lab Requisition [facility] - Main Lab [address] [facility] [place] [address] Selena Ramos MD Tinea corporis [...] (1 - 3-dose SCD M series) 2013 Cholesterol Screening (Lipid Panel) 08/29/2023 HIV Screening 08/29/2023 Hepatitis C Screening 08/29/2023 Social Influencers of Health Screening 08/29/2023 Depression Screening 08/04/2024 COVID-19 Vaccine ( - 2023-2 5 season) 2025 Influenza Vaccine (#1) 2025 RSV Immunization Adult Patie nts (1 - 1-dose 75+ series) 2061 HIB Vaccines Aged Out No longer eligi [...] after 4 Weeks 03/24/2025 10:59 AM EDT [facility] Skin 02/22/2025 02/22/2025 6:5 8 PM EDT Selena Ramos MD LAB MICROBIOLOGY - GENERAL MONTY HAYDEN Final Result [facility] [address] [place] [address], [place] [phone] from Last 3 Months Insurance MEDICAID - [place] [facility] Care Teams Ed Manager Relationship Specialty Start Date End Date Physician, Pcp Unknown PCP - General 02/22/25
--- OUTSIDE RECORDS SUMMARY | 2025-05-05 09:10 | XMS_ITS | Clinical Summary ---
Author Organization [address] Address [address] [place] [address] Care Team Providers Care Nutrition Aide Name Role Phone Unavailable Primary Care [...] - 5.6 % 02/26/2023 7:37 PM EDT [facility] Comment: Hemoglobin A1c values [...] mg/dL 120 mg/dL 02/26/2023 7:37 PM EDT [facility] Comment: Estimated average glucose (eAG) is a calculated value designed to estimate the expected average blood glucose level throughout the day from a single measurement of glycated hemoglobin A1C (HbA1c) and follows the calculation proposed by the [place] [employer] (Diabetes Care 31: 1-6, 2008). It may have less accuracy in children, women and patients with certain erythrocyte disorders. Blood Venipuncture / Unknown 02/26/2023 11:12 AM EDT 02/26/2023 11:12 AM EDT Ivana Martinez APRN LAB BLOOD ORDERABLES Fi nal Result Performing Organization Address [facility]/State/ZIP Co de Phone Number [address] [phone] * Hepatitis C Ab with reflex to HCV PCR (05/13/2022 10:46 AM EDT) Hepatitis C Ab Initial Result 0.03 S/CO 05/13/2022 1:44 PM EDT [facility] Hepatitis C Ab Interpretation Non-React lilo Non-React lilo 05/13/2022 1:44 PM T [facility] Blood Venipuncture / Unknown 05/13/2022 10:46 AM EDT 05/13/2022 10:46 AM EDT us Ivana Martinez SMALL ENGINE SPECIALIST LAB BLOOD ORDERABLES Fi nal Result [address] [address], [place] [phone] * Colonoscopy (10/12/2021 7:19 AM EST) Colonoscopy Endoscopy Patient Name: Jay Guillermo Procedure Date: 10/12/2021 7:19 AM Date of : 1985 Age: 36 Gender: Male Admit Type: Outpatient [facility] #: [id number] Note Status: Finalized Attending MD: Matthew Huynh [...] and oxygen saturations were monitored continuously. The [id number] was introduced through the anus and advanced [...] the patient. Procedure Code(s): --- Professional --- 60556, Colonoscopy, flexible; with biopsy, single or multiple Diagnosis Code(s): --- Professional --- K62.89, Other specified diseases of anus and rectum R10.84, Generalized abdominal pain R19.7, Diarrhea, unspecified CPT copyright 2020 [place] [employer]. All rights reserved. The codes documented in this report are preliminary and upon certified coder review may be revised to meet current [...] Documents on File Type Date Recorded Patient Excellence Leader Expl anation Healthcare Excellence Leader/Po wer of Fuse Cup Expander 03/19/2021 4:27 PM 2020
--- OUTSIDE RECORDS SUMMARY | 2025-05-05 09:11 | XMS_ITS | Encounter Summary ---
Author Organization [facility] and Home Health Address [address] [place] [address] Care Team Providers Care Director Of Testing Name Role Phone Michelle Ivana HECTOR Primary Care Provider Encounter Details Date Type Department Care Team (Late st Contact Info) Description 11/19/2021 Scanned Document [facility] Internal Medicine [address] 1st [address] [place], [place] [address] Provider, Historical . Social History Tobacco Use [...] RIGHT AP INTERNA L AP EXTERNAL AXILLARY ([facility] Y) Routine 11/17/2021 documented in this [...] of this encounter Care Teams Director Of Testing Relationship Specialty Start Date End Date Ivana Martinez APRN PCP - General Family Medicine 05/13/22 01/27/24 documented as of this encounter
--- OUTSIDE RECORDS SUMMARY | 2025-05-05 09:11 | XMS_ITS | Encounter Summary ---
Author Organization [facility] and Home Health Address [address] [place] [address] Care Team Providers Care Ripsaw Operator Name Role Phone Ivana Martinez HECTOR Primary Care Provider Reason for Visit * Reason Onset Date Comments Medication Refill 02/26/2022 Encounter Details Date Type Department Care Team (Late st Contact Info) Description 02/26/2022 Refill [facility] Internal Medicine [address] [place] [address] Zoya Clayton MD [address] [place] [phone] Medication Refill Social History Tobacco Use [...] documented as of this encounter Care Teams Ripsaw Operator Relationship Specialty Start Date End Date Ivana Martinez APRN PCP - General Family Medicine 05/13/22 01/27/24 documented as of this encounter
--- OUTSIDE RECORDS SUMMARY | 2025-05-05 09:11 | XMS_ITS | Encounter Summary ---
Author Organization [facility] and Home Health Address [address] [place] [address] Care Team Providers Care Director Of Supply Chain Name Role Phone Ivana Martinez HECTOR Primary Care Provider Reason for Visit * Reason Onset Date Comments Medication Refill 10/29/2021 Encounter Details Date Type Department Care Team (Late st Contact Info) Description 10/29/2021 Refill [facility] Internal Medicine [address], [address]st [place] [address] Zoya Clayton MD [address] [place] [phone] Medication Refill Social History Tobacco Use [...] of this encounter Care Teams Director Of Supply Chain Relationship Specialty Start Date End Date Ivana Martinez APRN PCP - General Family Medicine 05/13/22 01/27/24 documented as of this encounter
--- OUTSIDE RECORDS SUMMARY | 2025-05-05 09:11 | XMS_ITS | Encounter Summary ---
Author Organization [facility] Address [address] [place] [address] Care Team Providers Care Information Technology Audit Manager Name Role Phone Michelle Ivana YOUNG Primary Care Provider Encounter Details Date Type Department Care Team (Late st Contact Info) Description 08/18/2021 EpicOnHand Encounter [facility] Internal Medicine [address], [address] [place] [address] Leny Hernandez MD Social History Tobacco Use [...] of this encounter Care Teams Information Technology Audit Manager Relationship Specialty Start Date End Date Ivana Martinez APRN PCP - General Family Medicine 05/13/22 01/27/24 documented as of this encounter
--- OUTSIDE RECORDS SUMMARY | 2025-05-05 09:11 | XMS_ITS | Encounter Summary ---
Author Organization [facility] and Home Health Address [address] [place] [address] Care Team Providers Care Fishing Rod Mechanic Name Role Phone Ivana Martinez HECTOR Primary Care Provider Encounter Details Date Type Department Care Team (Late st Contact Info) Description 10/12/2021 Scanned Document [facility] Gastroenterology [facility] [address] [place], [place] [address] Matthew Huynh MD [address] [place] [address] Social History Tobacco Use Types [...] documented as of this encounter Care Teams Fishing Rod Mechanic Relationship Specialty Start Date End Date Ivana Martinez APRN PCP - General Family Medicine 05/13/22 01/27/24 documented as of this encounter
--- OUTSIDE RECORDS SUMMARY | 2025-05-05 09:11 | XMS_ITS | Encounter Summary ---
Author Organization [facility] and Home Health Address [address] [place] [address] Care Team Providers Care Cvt Rn Name Role Phone Andrew Martinezhanie HECTOR Primary Care Provider Encounter Details Date Type Department Care Team (Late st Contact Info) Description 11/13/2020 Scanned Document [facility] Internal Medicine [address], [address] [place], [place] [address] Zoya Clayton MD [facility] [address] [phone] Social History Tobacco Use Types [...] documented as of this encounter Care Teams Cvt Rn Relationship Specialty Start Date End Date Ivana Martinez APRN PCP - General Family Medicine 05/13/22 01/27/24 documented as of this encounter
--- OUTSIDE RECORDS SUMMARY | 2025-05-05 09:11 | XMS_ITS | Encounter Summary ---
Author Organization [facility]up and Home Health Address [address] [place] [address] Care Team Providers Care Operator Supply Name Role Phone Ivana Martinez HECTOR Primary Care Provider Reason for Visit * Reason Onset Date Comments Medication Refill 05/02/2022 Encounter Details Date Type Department Care Team (Late st Contact Info) Description 05/02/2022 Refill [facility] Internal Medicine [address] [place] [address] Zoya Clayton MD [address] [place] [phone] Medication Refill Social History Tobacco Use [...] documented as of this encounter Care Teams Operator Supply Relationship Specialty Start Date End Date Ivana Martinez APRN PCP - General Family Medicine 05/13/22 01/27/24 documented as of this encounter
--- OUTSIDE RECORDS SUMMARY | 2025-05-05 09:11 | XMS_ITS | Encounter Summary ---
Author Organization [facility] and Home Health Address [address] [place] [address] Care Team Providers Care Digital Sales Planner Name Role Phone Andrew Martinezhanie HECTOR Primary Care Provider Encounter Details Date Type Department Care Team (Late st Contact Info) Description 11/17/2021 Scanned Document NEM Internal Medicine [address], 1st Floor [place], [place] [address] Zoya Clayton MD [facility] [address] [phone] Social History Tobacco Use Types [...] as of this encounter Care Teams Digital Sales Planner Relationship Specialty Start Date End Date Ivana Martinez APRN PCP - General Family Medicine 05/13/22 01/27/24 documented as of this encounter
--- OUTSIDE RECORDS SUMMARY | 2025-05-05 09:11 | XMS_ITS | Encounter Summary ---
Author Organization [facility]up and Home Health Address [address] [place] [address] Care Team Providers Care Counseling Center Manager Name Role Phone Andrew Martinezhanie HECTOR Primary Care Provider Encounter Details Date Type Department Care Team (Late st Contact Info) Description 08/27/2021 Scanned Document [address] [employer] [facility] [address] [place] [address] Provider, historical . Social History Tobacco [...] documented as of this encounter Care Teams Counseling Center Manager Relationship Specialty Start Date End Date Ivana Martinez APRN PCP - General Family Medicine 05/13/22 01/27/24 documented as of this encounter
--- OUTSIDE RECORDS SUMMARY | 2025-05-05 09:11 | XMS_ITS | Encounter Summary ---
Author Organization [facility]up and Home Health Address [address] [place] [address] Care Team Providers Care Spring Assembler Name Role Phone Ivana Martinez OPERATIONS SUPPORT MANAGER Primary Care Provider Encounter Details Date Type Department Care Team (Late st Contact Info) Description 05/05/2019 Scanned Document Scarlet Espinosa M.D. [address] [facility] [address] [place] [address] Jeffy Espinosa MD [address] [place] [phone] Social History Tobacco Use Types Packs/Day [...] documented as of this encounter Care Teams Spring Assembler Relationship Specialty Start Date End Date Ivana Martinez APRN PCP - General Family Medicine 05/13/22 01/27/24 documented as of this encounter
--- OUTSIDE RECORDS SUMMARY | 2025-05-05 09:11 | XMS_ITS | Encounter Summary ---
Author Organization [facility] oup and Home Health Address [address] [place] [address] Care Team Providers Care Senior Control Systems Engineer Name Role Phone Ivana Martinez HECTOR Primary Care Provider Reason for Visit * Reason Comments Medication Refill Encounter Details Date Type Department Care Team (Late st Contact Info) Description 04/01/2022 Refill NEM Internal Medicine [address], [address] [place] [address] Zoya Clayton MD [facility] [address] [phone] Medication Refill Social History Tobacco [...] as of this encounter Care Teams Senior Control Systems Engineer Relationship Specialty Start Date End Date Ivana Martinez APRN PCP - General Family Medicine 05/13/22 01/27/24 documented as of this encounter
--- OUTSIDE RECORDS SUMMARY | 2025-05-05 09:11 | XMS_ITS | Encounter Summary ---
Author Organization [facility] oup and Home Health Address [address] [place] [address] Care Team Providers Care Aircraft Technician Name Role Phone Ivana Martinez HECTOR Primary Care Provider Reason for Visit * Reason Comments Medication Refill Encounter Details Date Type Department Care Team (Late st Contact Info) Description 06/20/2021 Refill NEM Internal Medicine [address], 1st [place] [address] Zoya Clayton MD [facility] [address] [phone] Medication Refill Social History Tobacco [...] as of this encounter Care Teams Aircraft Technician Relationship Specialty Start Date End Date Ivana Martinez APRN PCP - General Family Medicine 05/13/22 01/27/24 documented as of this encounter
--- OUTSIDE RECORDS SUMMARY | 2025-05-05 09:11 | XMS_ITS | Encounter Summary ---
Author Organization [facility] Address [address] [place] [address] Care Team Providers Care Bed Operator Name Role Phone Pcp, No Primary Care Provider Unavailabl e Encounter Details Date Type Department Care Team (Late st Contact Info) Description 10/12/2022 Scanned Document [facility] [address] [phone] Matthew Rodney MD [address] [place] [address] Social History Tobacco Use Types Packs/Day [...] on filedocumented in this encounter Care Teams Bed Operator Relationship Specialty Start Date End Date Pcp, No PCP - General 10/21/22 documented as of this encounter
--- OUTSIDE RECORDS SUMMARY | 2025-05-05 09:11 | XMS_ITS | Clinical Summary ---
Author Organization [facility] Address [address] [place] [address] Care Team Providers Care Soda Dialyzer Name Role Phone Pcp, No Primary Care [...] - 19+ 3-dose series) 2005 Influenza Vaccine 03/04/2025 05/13/2022, 06/06/2021 COVID-19 Vaccine (3 - 2024-2 6 season) 2025 02/03/2021, 01/11/2021 HPV Vaccines (No Doses Required) Completed Pneumococcal Vaccine: Pediatric (0-5 Years) and At-Risk Patients (6 to 49 Years) Aged Out No longer eligible b ased on patient's age to complete this topic Insurance [facility] Care Teams Soda Dialyzer Relationship Specialty Start Date End Date Pcp, No PCP - General 10/21/22
--- OUTSIDE RECORDS SUMMARY | 2025-05-05 09:11 | XMS_ITS | Encounter Summary ---
Author Organization [facility] oup and Home Health Address [address] [place] [address] Care Team Providers Care Table Machine Operator Name Role Phone JohannaAndrew mcelroyhanie HECTOR Primary Care Provider Encounter Details Date Type Department Care Team (Late st Contact Info) Description 09/26/2021 Scanned Document NEM Internal Medicine [address], 1st Floor [place], [place] [phone] External, Provider Social History Tobacco Use Types [...] documented as of this encounter Care Teams Table Machine Operator Relationship Specialty Start Date End Date Ivana Martinez APRN PCP - General Family Medicine 05/13/22 01/27/24 documented as of this encounter
--- OUTSIDE RECORDS SUMMARY | 2025-05-05 09:11 | XMS_ITS | Encounter Summary ---
Author Organization [facility]up and Home Health Address [address] [place] [address] Care Team Providers Care Caterer'S Aide Name Role Phone Ivana Martinez HECTOR Primary Care Provider Reason for Visit * Reason Comments Medication Refill Encounter Details Date Type Department Care Team (Late st Contact Info) Description 06/01/2021 Refill NEM Internal Medicine [address], [address] [place] [address] Zoya Clayton MD [facility] [address] [phone] Medication Refill Social History Tobacco [...] documented as of this encounter Care Teams Caterer'S Aide Relationship Specialty Start Date End Date Ivana Martinez APRN PCP - General Family Medicine 05/13/22 01/27/24 documented as of this encounter
--- OUTSIDE RECORDS SUMMARY | 2025-05-05 09:11 | XMS_ITS | Encounter Summary ---
Author Organization [facility] oup and Home Health Address [address] [place] [address] Care Team Providers Care Human Resources Associate Name Role Phone Ivana Martinez HECTOR Primary Care Provider Reason for Visit * Reason Onset Date Comments Medication Refill 07/12/2021 Encounter Details Date Type Department Care Team (Late st Contact Info) Description 07/12/2021 Refill [facility] Internal Medicine [address], 1st [place] [address] Zoya Clayton MD [address] [place] [phone] Medication Refill Social History Tobacco Use [...] of this encounter Care Teams Human Resources Associate Relationship Specialty Start Date End Date Ivana Martinez APRN PCP - General Family Medicine 05/13/22 01/27/24 documented as of this encounter
--- OUTSIDE RECORDS SUMMARY | 2025-05-05 09:11 | XMS_ITS | Encounter Summary ---
Author Organization [facility] oup and Home Health Address [address] [place] [address] Care Team Providers Care Occupational Health And Safety Manager Name Role Phone Ivana Martinez APRN Primary Care Provider Encounter Details Date Type Department Care Team (Late st Contact Info) Description 05/06/2019 Scanned Document Scarlet Espinosa M.D. [address] [facility] [address] [place] [address] Jeffy Espinosa MD [address] [place] [phone] Social History Tobacco Use Types Packs/Day [...] documented as of this encounter Care Teams Occupational Health And Safety Manager Relationship Specialty Start Date End Date Ivana Martinez APRN PCP - General Family Medicine 05/13/22 01/27/24 documented as of this encounter
--- OUTSIDE RECORDS SUMMARY | 2025-05-05 09:11 | XMS_ITS | Encounter Summary ---
Author Organization [facility] oup and Home Health Address [address] [place] [address] Care Team Providers Care Composition Roofer Name Role Phone Andrew Martinezhanie HECTOR Primary Care Provider Encounter Details Date Type Department Care Team (Late st Contact Info) Description 08/22/2021 Scanned Document NEM Internal Medicine [address], 1st Floor [place], [place] [address] Zoya Clayton MD [facility] [address] [phone] Social History Tobacco Use Types [...] documented as of this encounter Care Teams Composition Roofer Relationship Specialty Start Date End Date Ivana Martinez APRN PCP - General Family Medicine 05/13/22 01/27/24 documented as of this encounter
--- OUTSIDE RECORDS SUMMARY | 2025-05-05 09:11 | XMS_ITS | Encounter Summary ---
Author Organization [facility] ou and Home Health Address [address] [place] [address] Care Team Providers Care Tray Setter Name Role Phone Ivana Martinez HECTOR Primary Care Provider Reason for Visit * Reason Comments Medication Refill Encounter Details Date Type Department Care Team (Late Contact Info) Description 12/30/2021 Refill [facility] [address] [facility] [address] [place], [place] [address] Matthew Huynh MD [address] [place] [address] Medication Refill Social History Tobacco [...] documented as of this encounter Care Teams Tray Setter Relationship Specialty Start Date End Date Ivana Martinez APRN PCP - General Family Medicine 05/13/22 01/27/24 documented as of this encounter
--- OUTSIDE RECORDS SUMMARY | 2025-05-05 09:11 | XMS_ITS | Encounter Summary ---
Author Organization [facility] oup and Home Health Address [address] [place] [address] Care Team Providers Care Salicylic Acid Blender Name Role Phone Andrew Martinezhanie HECTOR Primary Care Provider Encounter Details Date Type Department Care Team (Late st Contact Info) Description 09/26/2021 Scanned Document NEM Internal Medicine [address], 1st Floor [place], [place] [address] Zoya Clayton MD [facility] [address] [phone] Social History Tobacco Use Types [...] documented as of this encounter Care Teams Salicylic Acid Blender Relationship Specialty Start Date End Date Ivana Martinez APRN PCP - General Family Medicine 05/13/22 01/27/24 documented as of this encounter
--- OUTSIDE RECORDS SUMMARY | 2025-05-05 09:12 | XMS_ITS | Encounter Summary ---
Author Organization [facility] Address [address] [place] [address] Care Team Providers Care Esthetician Name Role Phone Ivana Martinez APRN Primary Care Provider Encounter Details Date Type Department Care Team (Late st Contact Info) Description 05/13/2022 Transcribed Orders [place] [facility] [address] [place], [place] [address] Ivana Martinez APRN [address] [facility] [address] [place] [address] Hypocalcemia (Primary Dx); Hypertension, unspecified [...] See Comment ng/dL 05/13/2022 2:16 PM EDT [facility] Comment: For patients taking levothyroxine, the [...] AM EDT 05/13/2022 10:46 AM EDT Ivana SureFirelilibeth ROLLOFF DRIVER LAB BLOOD ORDERABLES Fi nal Result Performing Organization Address City/[facility] Co de Phone Number [address] [phone] * PTH, intact without calcium (05/13/2022 10:46 AM EDT) Parathyroid Hormone, Intact 35.0 15.0 - 65.0 pg/mL 05/13/2022 12:49 PM EDT [facility] Blood Venipuncture / Unknown 05/13/2022 10:46 AM EDT 05/13/2022 10:46 AM EDT Ivanabhavin Martinez ROLLOFF DRIVER LAB BLOOD ORDERABLES Fi nal Result [facility] [address] [place] [address], [facility] [phone] * (ABNORMAL) Comprehensive metabolic panel (05/13/2022 10:46 AM EDT) Sodium 138 136 - 144 mmol/L 05/13/2022 1:07 PM [facility] Potassium 3.8 3.3 - 5.3 mmol/L 05/13/2022 1:07 PM [facility] Chloride 98 98 - 107 mmol/L 05/13/2022 1:07 PM [facility] CO2 28 20 - 30 mmol/L 05/13/2022 1:07 PM [facility] Anion Gap 12 7 - 17 05/13/2022 1:07 PM [facility] Glucose 105(H) 70 - 100 mg/dL 05/13/2022 1:07 PM [facility] BUN 6 6 - 20 mg/dL 05/13/2022 1:07 PM [facility] Creatinine 0.78 0.40 - 1.30 mg/dL 05/13/2022 1:07 PM [facility] Calcium 9.6 8.8 - 10.2 mg/dL 05/13/2022 1:07 PM [facility] BUN/Creatinine Ratio 7.7(L) 8.0 - 23.0 05/04 1:07 PM [facility] Total Protein 7.5 6.6 - 8.7 g/dL 05/13/2022 1:07 PM [facility] Albumin 5.2(H) 3.6 - 4.9 g/dL 05/13/2022 1:07 PM [facility] Total Bilirubin 0.5 <=1.2 mg/dL 05/13/20 1:07 PM [facility] Alkaline Phosphatase 81 9 - 122 U/L 05/2022 1:07 PM [facility] Alanine Aminotransferase (ALT) 45 9 - 59 U/L 05/13/2022 1:07 PM [facility] Comment:Calcium dobesilate c an cause artificially low ALT results at therapeutic concentrations Aspartate Aminotransferase (AST) 48(H) 10 - 35 U/L 05/13/2022 1:07 PM EDT [facility] Globulin 2.3 2.3 - 3.5 g/dL 05/13/2022 1:07 PM [facility] A/G Ratio 2.3(H) 1.0 - 2.2 05/13/2022 1:07 PM [facility] AST/ALT Ratio 1.1 See Comment 05/13/2022 1:07 PM [facility] Comment: Adult with mild elevations of transaminases [...] >60 >=60 mL/min/1.73 m2 05/13/2022 1:07 PM [facility] Comment:Estimated glomerular filtration rate (eGFR) was calculated [...] APRN LAB BLOOD ORDERABLES Fi nal Result [address] [phone] * (ABNORMAL) CBC auto differential (05/13/2022 10:46 AM EDT) WBC 5.5 4.0 - 11.0 x1000/ L 05/13/2022 12:09 PM T [facility] RBC 5.19 4.00 - 6.00 M/ L 05/13/2022 12:09 PM [facility] Hemoglobin 16.6 13.2 - 17.1 g/dL 05/13/2022 12:09 PM [facility] Hematocrit 45.70 38.50 - 50.00 % 05/13/2022 12:09 PM [facility] MCV 88.1 80.0 - 100.0 fL 05/13/2022 12:09 PM [facility] MCH 32.0 27.0 - 33.0 pg 05/13/2022 12:09 PM [facility] MCHC 36.3(H) 31.0 - 36.0 g/dL 05/13/2022 12:09 PM [facility] RDW-CV 12.7 11.0 - 15.0 % 05/13/2022 12:09 PM [facility] Platelets 323 150 - 420 x1000/ L 05/13/2022 12:09 PM [facility] MPV 9.5 8.0 - 12.0 fL 05/13/2022 12:09 PM [facility] Neutrophils 36.5(L) 39.0 - 72.0 % 05/13/2022 12:09 PM [facility] Lymphocytes 42.0 17.0 - 50.0 % 05/13/2022 12:09 PM [facility] Monocytes 9.2 4.0 - 12.0 % 05/13/2022 12:09 PM [facility] Eosinophils 11.2(H) 0.0 - 5.0 % 05/13/2022 12:09 PM [facility] Basophil 1.1 0.0 - 1.4 % 05/13/2022 12:09 PM [facility] Immature Granulocytes 0.0 0.0 - 1.0 % 05/13/2022 12:09 PM [facility] nRBC 0.0 0.0 - 1.0 % 05/13/2022 12:09 PM [facility] ANC(Abs Neutrophil Count) 1.99(L) 2.00 - 7.60 x 1000/ L 05/13/2022 12:09 PM [facility] Absolute Lymphocyte Count 2.29 0.60 - 3.70 x 1000/ L 05/13/2022 12:09 PM [facility] Monocyte Absolute Count 0.50 0.00 - 1.00 x 1000/ L 05/13/2022 12:09 PM EDT [facility] Eosinophil Absolute Count 0.61 0.00 - 1.00 x 1000/ L 05/13/2022 12:09 PM EDT [facility] Basophil Absolute Count 0.06 0.00 - 1.00 x 1000/ L 05/13/2022 12:09 PM EDT [facility] Absolute Immature Granulocyte Count 0.00 0.00 - 0.30 x 1000/ L 05/13/2022 12:09 PM EDT [facility] Absolute nRBC 0.00 0.00 - 1.00 x 1000/ L 05/13/2022 12:09 PM EDT [facility] Blood Venipuncture / Unknown 05/13/2022 10:46 AM EDT 05/13/2022 10:46 AM EDT [facility] ROLLOFF DRIVER LAB BLOOD ORDERABLES Fi nal Result [address] [phone] * (ABNORMAL) Thyroid antibody panel ( GH) (05/13/2022 10:46 AM EDT) Thyroid Peroxidase Ab 163(H) 0 - 99 IU/mL 05/15/2022 1:01 PM EDT [facility] Thyroglobulin Ab <10.0 0 - 125 IU/mL 05/15/2022 1:01 PM EDT [facility] Blood Venipuncture / Unknown 05/13/2022 10:46 AM EDT 05/13/2022 10:46 AM EDT Ivana PetAimetisle ROLLOFF DRIVER LAB BLOOD [place] [address], [facility] [phone] * (ABNORMAL) THYROID PEROXIDASE ANTIBODY (05/13/2022 10:46 AM EDT) Thyroid Peroxidase Ab 163(H) 0 - 99 IU/mL 05/15/2022 1:01 PM EDT [facility] Blood Venipuncture / Unknown 05/13/2022 10:46 AM EDT 05/13/2022 10:46 AM EDT [facility] LAB BLOOD ORDERABLES Fi nal Result Performing Organization Address [facility] de Phone Number [address] [phone] * TESTOSTERONE, TOTAL (BH GH L LMW YH) (05/13/2022 10:46 AM EDT) Testosterone, Total 302 229 - 902 ng/dL 05/13/2022 1:18 PM EDT [facility] Comment: The following testosterone reference ranges [...] [place]. J Clin Endocrinol Metab. 2017 Apr 1;102(4):7746-1270. Blood Venipuncture / Unknown 05/13/2022 10:46 AM EDT 05/13/2022 10:46 AM EDT Ivana Martinez APRN LAB BLOOD ORDERABLES Fi nal Result Performing Organization Address [facility]/ZIP Co de Phone Number [address] [phone] * (ABNORMAL) Gamma GT (05/13/2022 10:46 AM EDT) GGT 92(H) <48 U/L 05/13/2022 12:53 PM EDT [facility] Blood Venipuncture / Unknown 05/13/2022 10:46 AM EDT 05/13/2022 10:46 AM EDT [facility] ROLLOFF DRIVER LAB BLOOD ORDERABLES Fi nal Result Performing Organization Address [facility] de Phone Number [address] [phone] * (ABNORMAL) Vitamin D, 25-hydroxy (05/13/2022 10:46 AM EDT) Vitamin S02-Myrxwrq 16.9(L) 30.0 - 100.0 ng/mL 05/13/2022 1:47 PM EDT [facility] Comment: Vitamin D Status: Results in ng/mL <10.0: Deficient 10.0 - 29.9: Insufficient 30.0 - 100.0: Sufficient >100: Toxic Reference ranges established by Khush. Blood Venipuncture / Unknown 05/13/2022 10:46 AM EDT 05/13/2022 10:46 AM EDT Ivana Martinez ROLLOFF DRIVER LAB BLOOD ORDERABLES Fi nal Result Performing Organization Address [facility] de Phone Number [address] [phone] * Hepatitis C Ab with reflex to HCV PCR (05/13/2022 10:46 AM EDT) Hepatitis C Ab Initial Result 0.03 S/CO 05/13/2022 1:44 PM EDT [facility] Hepatitis C Ab Interpretation Non-React lilo Non-React lilo 05/13/2022 1:44 PM EDT [facility] Blood Venipuncture / Unknown 05/13/2022 10:46 AM EDT 05/13/2022 10:46 AM EDT Ivana Martinez APRN LAB BLOOD ORDERABLES Fi nal Result [facility] [address] [place] [address], [facility] [phone] * (ABNORMAL) Lipid panel (05/13/2022 10:46 AM EDT) Cholesterol 185 See Comment mg/dL 05/13/2022 1:07 PM [facility] Comment: Total Cholesterol (mg/dL) Adults (>18 years) Children (<18 years) Desirable <200 <170 Borderline-High 200-239 170-199 High >=240 >=200 HDL 63 >=40 mg/dL 05/13/2022 1:07 PM [facility] Triglycerides 268(H) See Comment mg/dL 05/13/2022 1:07 PM [facility] Comment: Triglycerides (mg/dL) Adults (>18 years) Children (<18 years) Desirable <150 Not Established Borderline-High 150-199 Not Established High 200-499 Not Established Chol/HDL Ratio 2.9 0.0 - 5.0 05/13/2022 1:07 PM [facility] LDL Calculated 79 See Comment mg/dL 05/13/2022 1:07 PM [facility] Comment: Effective 01/09/2022, LDL is calculated using the El-KRISTIN equation, which is more accurate than the Friedewald and Gato-Sanchez equations. LDL Cholesterol (mg/dL) Adults (>18 years) Children (<18 years) Desirable <100 <110 Above Desirable 100-129 Not Established Borderline-High 130-159 110-129 High 160-189 >=130 Very High >=190 Not Established Blood Venipuncture / Unknown 05/13/2022 10:46 AM EDT 05/13/2022 10:46 AM EDT [facility] LAB BLOOD ORDERABLES Fi nal Result Performing Organization Address City/[facility]/ZIP Co de Phone Number [address] [phone] * (ABNORMAL) Vitamin B12 (05/13/2022 10:46 AM EDT) Vitamin B12 168(L) 232 - 1,245 pg/mL 05/13/2022 1:40 PM EDT [facility] Blood Venipuncture / Unknown 05/13/2022 10:46 AM EDT 05/13/2022 10:46 AM EDT [facility] BLOOD ORDERABLES Fi nal Result Performing Organization Address [facility]/ZIP Co de Phone Number [address] [phone] * (ABNORMAL) Hemoglobin A1c (05/13/2022 10:46 AM EDT) Hemoglobin A1c 5.7(H) 4.0 - 5.6 % 05/13/2022 1:42 PM T [facility] Comment: Hemoglobin A1c values of 5.7-6.4 [...] mg/dL 117 mg/dL 05/13/2022 1:42 PM EDT [facility] Comment: Estimated average glucose (eAG) is [...] Fi nal Result Performing Organization Address [facility]/ZIP Co de Phone Number [address] [phone] * (ABNORMAL) TSH w/reflex to FT4 (BH GH LMW Q YH) (05/13/2022 10:46 AM EDT) Thyroid Stimulating Hormone 4.470(H) See Comment IU/mL 05/13/2022 1:07 PM EDT [facility] Comment: Male & Non- Females: 0.270-4.200 IU/mL 1st Trimester: 0.110-3.480 IU/mL 2nd Trimester: 0.320-3.850 IU/mL Blood Venipuncture / Unknown 05/13/2022 10:46 AM EDT 05/13/2022 10:46 AM EDT Ivanaaldo Martinez ROLLOFF DRIVER LAB BLOOD ORDERABLES Fi nal Result [place] [id number], [facility] [phone] documented in this encounter Visit Diagnoses Diagnosis [...] documented as of this encounter Care Teams Esthetician Relationship Specialty Start Date End Date Ivana Martinez APRN PCP - General Family Medicine 05/13/22 01/27/24 documented as of this encounter
--- OUTSIDE RECORDS SUMMARY | 2025-05-05 09:12 | XMS_ITS | Encounter Summary ---
Author Organization [facility] Address [address] [place] [address] Care Team Providers Care Towboat Captain Name Role Phone Andrew Martinezhanie HECTOR Primary Care Provider Reason for Visit * Reason Comments Medication Refill Encounter Details Date Type Department Care Team (Late st Contact Info) Description 06/22/2022 Refill [facility] Internal Medicine [address], 1st [place] [address] Zoya Clayton MD [facility] [address] [phone] Medication Refill Social History [...] documented as of this encounter Care Teams Towboat Captain Relationship Specialty Start Date End Date Ivana Martinez APRN PCP - General Family Medicine 05/13/22 01/27/24 documented as of this encounter
--- OUTSIDE RECORDS SUMMARY | 2025-05-05 09:12 | XMS_ITS | Encounter Summary ---
Author Organization [facility] Address [address] [place] [address] Care Team Providers Care Audio Visual Engineer Name Role Phone Ivana Martinez HECTOR Primary Care Provider Reason for Visit * Reason Onset Date Comments Medication Refill 06/25/2022 Encounter Details Date Type Department Care Team (Late st Contact Info) Description 06/25/2022 Refill [facility] Internal Medicine [address], 1[address] [place] [address] Zoya Clayton MD [address] [place] [phone] Medication Refill Social History Tobacco Use [...] documented as of this encounter Care Teams Audio Visual Engineer Relationship Specialty Start Date End Date Ivana Martinez APRN PCP - General Family Medicine 05/13/22 01/27/24 documented as of this encounter
--- OUTSIDE RECORDS SUMMARY | 2025-05-05 09:12 | XMS_ITS | Encounter Summary ---
Author Organization [facility] Address [address] [place] [address] Care Team Providers Care Candy Supervisor Name Role Phone Physician, Pcp Unknown Primary Care Provider Ale vailable Encounter Details Date Type Department Care Team (Late st Contact Info) Description 02/22/2025 Lab Requisition [facility] - Main Lab [address] [place] [address] Selena Ramos MD [address] [place] [address] [place] [address] Tinea corporis Social History Tobacco Use Types [...] after 4 Weeks 03/24/2025 10:59 AM EDT [facility] Skin 02/22/2025 02/22/2025 6:5 8 PM EDT Selena Ramos MD LAB MICROBIOLOGY - GENERAL MONTY HAYDEN Final Result [facility] [address] [place], [place] [address] [phone] documented in this encounter Visit Diagnoses Diagnosis Tinea corporis Dermatophytosis of the body documented in this encounter Care Teams Candy Supervisor Relationship Specialty Start Date End Date Physician, Pcp Unknown PCP - General 02/22/25 documented as of this encounter
--- OUTSIDE RECORDS SUMMARY | 2025-05-05 09:12 | XMS_ITS | Encounter Summary ---
Author Organization [facility] Health Address [address] [place] [address] Care Team Providers Care Operations And Intelligence Assistant Name Role Phone Andrew Martinezaldo YOUNG Primary Care Provider Reason for Visit * Reason Comments Medication Refill Encounter Details Date Type Department Care Team (Late st Contact Info) Description 06/30/2022 Refill [facility] Internal Medicine [address], 1st [place] [address] Souleymane Wilson DO [address] [place] [phone] Medication Refill Social History Tobacco Use Types [...] documented as of this encounter Care Teams Operations And Intelligence Assistant Relationship Specialty Start Date End Date Ivana Martinez APRN PCP - General Family Medicine 05/13/22 01/27/24 documented as of this encounter
--- OUTSIDE RECORDS SUMMARY | 2025-05-05 09:12 | XMS_ITS | Encounter Summary ---
Author Organization [facility] Address [address] [place] [address] Care Team Providers Care Strategic Planning Director Name Role Phone Ivana Martinez APRN Primary Care Provider Encounter Details Date Type Department Care Team (Late st Contact Info) Description 09/03/2022 Transcribed Orders [facility] [address] [place], [place] [phone] Ivana Martinez APRN [address] [facility] [address] [place] [address] Dysuria (Primary Dx) Social History [...] Priority Date/Time Associated Diagnosis Comments URINE MICROSCOPIC ([facility] LMW YH) Routine 09/03/2022 10:54 AM EST Dysuria URINALYSIS-MACROSCOP IC W/REFLEX MICROSCOPIC Routine 09/03/2022 10:54 AM EST Dysuria C. TRACHOMATIS / N. GONORRHOEAE, NAAT ( GH L LMW YH) Routine 09/03/2022 10:54 AM EST Dysuria NEISSERIA GONORRHEA, NAAT (LAB ORDER ONLY) ([facility] L LMW YH) Routine 09/03/2022 10:54 AM EST Dysuria CHLAMYDIA TRACHOMATIS, NAAT (LAB ORDER ONLY) ([facility] L LMW YH) Routine 09/03/2022 10:54 AM EST Dysuria URINE CULTURE Routine 09/03/2022 10:54 AM EST Dysuria documented in this encounter Results * (ABNORMAL) Urine microscopic ([facility] LMW YH) (09/03/2022 10:54 AM EST) RBC/HPF, UA 6(H) 0 - 2 /HPF 09/03/2022 12:05 PM [facility] WBC/HPF, UA 1 0 - 5 /HPF 09/03/2022 12:05 PM [facility] Bacteria, UA Rare None-Rare /HPF 09/03/2022 12:05 PM [facility] Hyaline Casts, UA 1 0 - 3 /LPF 09/03/2022 12:05 PM [facility] Urine Collection / Unknown 09/03/2022 10:54 AM EST 09/03/2022 10:54 AM EST us Ivana Martinez HOISTMAN URINE ORDERABLES Final Result [address] [phone] * Chlamydia trachomatis, NAAT ( GH LMW YH) (09/03/2022 10:54 AM EST) Chlamydia DNA Probe Negative Negative 09/04/2022 11:43 AM [facility] Comment:The Aptima Combo2 As say is not intended for the evaluation of suspected sexual abuse or for other medico-legal indications. Specimen Source Urine (Dirty Catch) for DNA Probe 09/04/2022 11:43 AM [facility] Culture URINE SPECIMEN / Unknown Collection / Unknown 09/03/2022 10:54 AM EST 09/03/2022 10:54 AM EST Ivana Martinez APRN MICROBIOLOGY - GENERAL ORDERABLES Final Result Performing Organization Address [facility]/ZIP Co de Phone Number [address] [phone] * Neisseria gonorrhoeae, NAAT ( GH L LMW YH) (09/03/2022 10:54 AM EST) Neisseria gonorrhoeae, DNA Probe Negative Negative 09/04/2022 11:43 AM [facility] Comment:The Aptima Combo2 As say is not intended for the evaluation of suspected sexual abuse or for other medico-legal indications. Specimen Source Urine (Dirty Catch) for DNA Probe 09/04/2022 11:43 AM [facility] Culture URINE SPECIMEN / Unknown Collection / Unknown 09/03/2022 10:54 AM EST 09/03/2022 10:54 AM EST Ivana Martinez APRN MICROBIOLOGY - GENERAL ORDERABLES Final Result Performing Organization Address [facility]/ZIP Co de Phone Number [address] [phone] * (ABNORMAL) Urinalysis-macroscopic w/reflex microscopic (09/03/2022 10:54 AM EST) Clarity, UA Clear Clear 09/03/2022 11:59 AM [facility] Color, UA Yellow Yellow, Colorless 09/03/2022 11:59 AM [facility] Specific Endeavor, UA 1.015 1.005 - 1.030 09/03/2022 11:59 AM [facility] pH, UA 6.5 5.5 - 7.5 09/03/2022 11:59 AM [facility] Protein, UA Negative Negative, Trace 09/03/2022 11:59 AM [facility] Glucose, UA Negative Negative 09/03/2022 11:59 AM [facility] Ketones, UA Negative Negative 09/03/2022 11:59 AM [facility] Blood, UA 2+(A) Negative 09/03/2022 11:59 AM [facility] Bilirubin, UA Negative Negative 09/03/2022 11:59 AM [facility] Leukocytes, UA Negative Negative 09/03/2022 11:59 AM [facility] Nitrite, UA Negative Negative 09/03/2022 11:59 AM [facility] Urobilinogen, UA <2.0 <=2.0 mg/dL 09/03/2022 11:59 AM [facility] Urine Collection / Unknown 09/03/2022 10:54 AM EST 09/03/2022 10:54 AM EST Ivana Martinez HOISTMAN URINE ORDERABLES Final Result Performing Organization Address City/[facility]/ZIP Co de Phone Number [address] [phone] * Urine culture (09/03/2022 10:54 AM EST) Urine Culture, Routine No Growth 09/04/2022 1:27 PM [facility] Culture URINE SPECIMEN OBTAINED BY CLEAN CATCH PROCEDURE / Unknown Collection / Unknown 09/03/2022 10:54 AM EST 09/03/2022 10:54 AM EST Ivana Martinez APRN MICROBIOLOGY - GENERAL ORDERABLES Final Result Performing Organization Address [facility]/ZIP Co de Phone Number [address] [phone] documented in this encounter Visit Diagnoses Diagnosis Dysuria- Primary documented in this encounter Additional Health Concerns Assessment Noted Time PHQ-9 Depression Total Score: 1 09/02/19 23 1:40 PM EST documented as of this encounter Care Teams Strategic Planning Director Relationship Specialty Start Date End Date Ivana Martinez APRN PCP - General Family Medicine 05/13/22 01/27/24 documented as of this encounter
--- OUTSIDE RECORDS SUMMARY | 2025-05-05 09:12 | XMS_ITS | Encounter Summary ---
Author Organization [facility] and [facility] Address [address] [place] [address] Care Team Providers Care Photographer Model Name Role Phone Ivana Martinez HECTOR Primary Care Provider Reason for Visit * Reason Onset Date Comments Medication Refill 05/30/2022 Encounter Details Date Type Department Care Team (Late st Contact Info) Description 05/30/2022 Refill [facility] Internal Medicine [address], 1st [place] [address] Zoya Clayton MD [address] [place] [phone] Medication Refill Social History Tobacco Use [...] documented as of this encounter Care Teams Photographer Model Relationship Specialty Start Date End Date Ivnaa Martinez APRN PCP - General Family Medicine 05/13/22 01/27/24 documented as of this encounter
--- OUTSIDE RECORDS SUMMARY | 2025-05-05 09:12 | XMS_ITS | Encounter Summary ---
Author Organization [facility] and Home Health Address [address] [place] [address] Care Team Providers Care Die Designer Name Role Phone Ivana Martinez HECTOR Primary Care Provider Reason for Visit * Reason Onset Date Comments Medication Refill 08/28/2022 Encounter Details Date Type Department Care Team (Late st Contact Info) Description 08/28/[address] [facility] Internal Medicine [address], 1st [place] [address] Zoya Clayton MD [address] [place] [phone] Medication Refill Social History Tobacco Use [...] documented as of this encounter Care Teams Die Designer Relationship Specialty Start Date End Date Ivana Martinez APRN PCP - General Family Medicine 05/13/22 01/27/24 documented as of this encounter
--- OUTSIDE RECORDS SUMMARY | 2025-05-05 09:12 | XMS_ITS | Patient Health Record ---
Author Organization [facility], Address [address] [place] [address] Reason For Referral No Information Plan Of Treatment No Information Insurance Providers Payer Name Payer Address Payer Phone Subscriber Number Group Number Insured Name Patient Relationship to Insured Coverage Start Date Coverage End Date [employer] of [place] [address] [place] [address] [id number] Jay major Self - patient is the insured
--- OUTSIDE RECORDS SUMMARY | 2025-05-05 09:12 | XMS_ITS | Encounter Summary ---
Author Organization [facility] and [facility] Address [address] [place] [address] Care Team Providers Care Pilling Machine Operator Name Role Phone Ivana Martinez APRN Primary Care Provider Encounter Details Date Type Department Care Team (Late st Contact Info) Description 09/03/2022 Orders Only [facility] Family Medicine [address] [place], [place] [phone] Ivana Martinez APRN [address] [place] [address] [address] [place] [address] Hypertension, unspecified type; Hypercalcemia; Elevated [...] 136 - 144 mmol/L 09/03/2022 12:57 PM [facility] Potassium 4.0 3.3 - 5.3 mmol/L 09/03/2022 12:57 PM [facility] Chloride 97(L) 98 - 107 mmol/L 09/03/2022 12:57 PM [facility] CO2 29 20 - 30 mmol/L 09/03/2022 12:57 PM [facility] Anion Gap 12 7 - 17 09/03/2022 12:57 PM [facility] Glucose 116(H) 70 - 100 mg/dL 09/03/2022 12:57 PM [facility] BUN 8 6 - 20 mg/dL 09/03/2022 12:57 PM [facility] Creatinine 0.86 0.40 - 1.30 mg/dL 09/03/2022 12:57 PM [facility] Calcium 9.5 8.8 - 10.2 mg/dL 09/03/2022 12:57 PM [facility] BUN/Creatinine Ratio 9.3 8.0 - 23.0 08/06 12:57 PM [facility] Total Protein 7.4 6.6 - 8.7 g/dL 09/03/2022 12:57 PM [facility] Albumin 5.0(H) 3.6 - 4.9 g/dL 09/03/2022 12:57 PM [facility] Total Bilirubin 1.0 <=1.2 mg/dL 09/03/19 12:57 PM [facility] Alkaline Phosphatase 70 9 - 122 U/L 12:57 PM [facility] Alanine Aminotransferase (ALT) 60(H) 9 - 59 U/L 09/03/2022 12:57 PM [facility] Comment:Calcium dobesilate c an cause artificially low ALT results at therapeutic concentrations Aspartate Aminotransferase (AST) 66(H) 10 - 35 U/L 09/03/2022 12:57 PM [facility] Globulin 2.4 2.3 - 3.5 g/dL 09/03/2022 12:57 PM [facility] A/G Ratio 2.1 1.0 - 2.2 09/03/2022 12:57 PM [facility] AST/ALT Ratio 1.1 See Comment 09/03/2022 12:57 PM [facility] Comment: Adult with mild elevations of transaminases (< 5 times upper limit of normal): AST/ALT > 2 suggests alcoholic liver injury AST/ALT < 1 suggests non-alcoholic fatty liver disease (NAFLD) [place] (healthy): AST/ALT can be > 3 on day 0 AST/ALT < 2 by day 5 The thresholds provided focus on the most common etiologies of elevated serum transaminase levels and the associated alteration of AST:ALT ratios; they are not intended to exclude other feasible and clinically appropriate possibilities eGFR (Creatinine) >60 >=60 mL/min/1.73 m2 09/03/2022 12:57 PM [facility] Comment:Estimated glomerular filtration rate (eGFR) [...] 09/03/2022 9:58 AM EST us Ivana Martinez WHEEL SHOP SUPERVISOR LAB BLOOD ORDERABLES Fi nal Result [address] [phone] * (ABNORMAL) CBC auto differential (09/03/2022 9:58 AM EST) WBC 6.2 4.0 - 11.0 x1000/ L 09/03/2022 12:01 PM [facility] RBC 5.11 4.00 - 6.00 M/ L 09/03/2022 12:01 PM [facility] Hemoglobin 16.5 13.2 - 17.1 g/dL 09/03/2022 12:01 [facility] Hematocrit 47.30 38.50 - 50.00 % 09/03/2022 12:01 [facility] MCV 92.6 80.0 - 100.0 fL 09/03/2022 12:01 [facility] MCH 32.3 27.0 - 33.0 pg 09/03/2022 12:01 PM [facility] MCHC 34.9 31.0 - 36.0 g/dL 09/03/2022 12:01 [facility] RDW-CV 12.7 11.0 - 15.0 % 09/03/2022 12:01 PM [facility] Platelets 278 150 - 420 x1000/ L 09/03/2022 12:01 PM [facility] MPV 10.2 8.0 - 12.0 fL 09/03/2022 12:01 [facility] Neutrophils 40.9 39.0 - 72.0 % 09/03/2022 12:01 PM [facility] Lymphocytes 39.7 17.0 - 50.0 % 09/03/2022 12:01 [facility] Monocytes 8.8 4.0 - 12.0 % 09/03/2022 12:01 [facility] Eosinophils 9.3(H) 0.0 - 5.0 % 09/03/2022 12:01 [facility] Basophil 1.1 0.0 - 1.4 % 09/03/2022 12:01 [facility] Immature Granulocytes 0.2 0.0 - 1.0 % 09/03/2022 12:01 PM [facility] nRBC 0.0 0.0 - 1.0 % 09/03/2022 12:01 [facility] ANC(Abs Neutrophil Count) 2.55 2.00 - 7.60 x 1000/ L 09/03/2022 12:01 [facility] Absolute Lymphocyte Count 2.48 0.60 - 3.70 x 1000/ L 09/03/2022 12:01 PM [facility] Monocyte Absolute Count 0.55 0.00 - 1.00 x 1000/ L 09/03/2022 12:01 PM [facility] Eosinophil Absolute Count 0.58 0.00 - 1.00 x 1000/ L 09/03/2022 12:01 PM [facility] Basophil Absolute Count 0.07 0.00 - 1.00 x 1000/ L 09/03/2022 12:01 PM [facility] Absolute Immature Granulocyte Count 0.01 0.00 - 0.30 x 1000/ L 09/03/2022 12:01 PM [facility] Absolute nRBC 0.00 0.00 - 1.00 x 1000/ L 09/03/2022 12:01 PM [facility] Blood Venipuncture / Unknown 09/03/2022 9:58 AM EST 09/03/2022 9:58 AM EST Ivana Petastonle WHEEL SHOP SUPERVISOR LAB BLOOD ORDERABLES Fi nal Result Performing Organization Address [facility]/ZIP Co de Phone Number [address] [phone] * Treponema pallidum (syphilis) antibody w/reflex (09/03/2022 9:58 AM EST) Treponema pallidum Ab Index <0.100 <0.9 Index 09/03/2022 1:38 PM [facility] Treponema pallidum Antibody Total, Serum Non-Reacti ve Non-Reacti ve 09/03/2022 1:38 PM [facility] Blood Venipuncture / Unknown 09/03/2022 9:58 AM EST 09/03/2022 9:58 AM EST us Ivana Petastonle WHEEL SHOP SUPERVISOR LAB BLOOD ORDERABLES Fi nal Result Performing Organization Address [facility]/ZIP Co de Phone Number [address] [phone] * (ABNORMAL) Gamma GT (09/03/2022 9:58 AM EST) GGT 133(H) <48 U/L 09/03/2022 12:57 PM [facility] Blood Venipuncture / Unknown 09/03/2022 9:58 AM EST 09/03/2022 9:58 AM EST Ivana Petastonle WHEEL SHOP SUPERVISOR LAB BLOOD ORDERABLES Fi nal Result Performing Organization Address [facility] Phone Number [address] [phone] * (ABNORMAL) Vitamin D, 25-hydroxy (09/03/2022 9:58 AM EST) Vitamin L93-Lqcmicc 12.1(L) 30.0 - 100.0 ng/mL 09/03/2022 1:55 PM [facility] Comment: Vitamin D Status: Results in ng/mL <10.0: Deficient 10.0 - 29.9: Insufficient 30.0 - 100.0: Sufficient >100: Toxic Reference ranges established by [employer]. Blood Venipuncture / Unknown 09/03/2022 9:58 AM EST 09/03/2022 9:58 AM EST Ivanabhavin Lesliele WHEEL SHOP SUPERVISOR LAB BLOOD ORDERABLES Fi nal Result Performing Organization Address [facility] Phone Number [address] [phone] * (ABNORMAL) Lipid panel (09/03/2022 9:58 AM EST) Cholesterol 201(H) See Comment mg/dL 09/03/2022 12:57 PM [facility] Comment: Total Cholesterol (mg/dL) Adults (>18 years) Children (<18 years) Desirable <200 <170 Borderline-High 200-239 170-199 High >=240 >=200 HDL 76 >=40 mg/dL 09/03/2022 12:57 PM [facility] Triglycerides 157(H) See Comment mg/dL 09/03/2022 12:57 PM [facility] Comment: Triglycerides (mg/dL) Adults (>18 years) Children (<18 years) Desirable <150 Not Established Borderline-High 150-199 Not Established High 200-499 Not Established Chol/HDL Ratio 2.6 0.0 - 5.0 09/03/2022 12:57 PM [facility] LDL Calculated 98 See Comment mg/dL 09/03/2022 12:57 PM [facility] Comment: Effective 01/09/2022, LDL is [...] LAB BLOOD ORDERABLES Fi nal Result [address] [phone] * (ABNORMAL) Hemoglobin A1c (09/03/2022 9:58 AM EST) Hemoglobin A1c 5.7(H) 4.0 - 5.6 % 09/03/2022 12:34 PM [facility] Comment: Hemoglobin A1c values of [...] Glucose mg/dL 117 mg/dL 09/03/2022 12:34 PM [facility] Comment: Estimated average glucose (eAG) is a calculated value designed to estimate the expected average blood glucose level throughout the day from a single measurement of glycated hemoglobin A1C (HbA1c) and follows the calculation proposed by the [place] [employer] (Diabetes Care 31: 1-6, 2008). It may have less accuracy in children, women and patients with certain erythrocyte disorders. Blood Venipuncture / Unknown 09/03/2022 9:58 AM EST 09/03/2022 9:58 AM EST Ivana Martinez APRN LAB BLOOD ORDERABLES Fi nal Result [address] [phone] * TSH w/reflex to FT4 (BH GH LMW Q YH) (09/03/2022 9:58 AM EST) Thyroid Stimulating Hormone 3.940 See Comment IU/mL 09/03/2022 12:57 PM [facility] Comment: Male & Non- Females: 0.270-4.200 IU/mL 1st Trimester: 0.110-3.480 IU/mL 2nd Trimester: 0.320-3.850 IU/mL Blood Venipuncture / Unknown 09/03/2022 9:58 AM EST 09/03/2022 9:58 AM EST Ivana Martinez APRN LAB BLOOD ORDERABLES Fi nal Result Performing Organization Address [facility]/State/[facility] Co de Phone Number [address] [phone] documented in this encounter Visit Diagnoses Diagnosis Hypertension, unspecified type Hypercalcemia Elevated LFTs Other abnormal blood chemistry Dysuria documented in this encounter Additional Health Concerns Assessment Noted Time PHQ-9 Depression Total Score: 1 09/02/19 23 1:40 PM EST documented as of this encounter Care Teams Pilling Machine Operator Relationship Specialty Start Date End Date Ivana Martinez APRN PCP - General Family Medicine 05/13/22 01/27/24 documented as of this encounter
--- OUTSIDE RECORDS SUMMARY | 2025-05-05 09:12 | XMS_ITS | Encounter Summary ---
Author Organization [facility] Address [address] [place] [address] Care Team Providers Care Wastewater Treatment Engineer Name Role Phone Ivana Martinez HECTOR Primary Care Provider Reason for Visit * Reason Onset Date Comments Medication Refill 12/17/2022 Encounter Details Date Type Department Care Team (Late st Contact Info) Description 12/17/2022 Refill [facility] Dermatology at [address] [employer] [address] [employer] [place], [place] [address] Noel Brandon MD [address] [place] [phone] Medication Refill Social History Tobacco Use Types [...] documented as of this encounter Care Teams Wastewater Treatment Engineer Relationship Specialty Start Date End Date Ivana Martinez APRN PCP - General Family Medicine 05/13/22 01/27/24 documented as of this encounter
--- OUTSIDE RECORDS SUMMARY | 2025-05-05 09:12 | XMS_ITS | Encounter Summary ---
Author Organization [facility] and Home Health Address [address] [place] [address] Care Team Providers Care Bottle Washer Name Role Phone Ivana Martinez HECTOR Primary Care Provider Reason for Visit * Reason Onset Date Comments Medication Refill 12/31/2022 Encounter Details Date Type Department Care Team (Late st Contact Info) Description 12/31/2022 Refill [facility] Internal Medicine [address] 1[address] [place] [address] Zoya Clayton MD [address] [place] [phone] Medication Refill Social History Tobacco Use [...] documented as of this encounter Care Teams Bottle Washer Relationship Specialty Start Date End Date Ivana Martinez APRN PCP - General Family Medicine 05/13/22 01/27/24 documented as of this encounter
--- OUTSIDE RECORDS SUMMARY | 2025-05-05 09:12 | XMS_ITS | Encounter Summary ---
Author Organization [facility] and Home Health Address [address] [place] [address] Care Team Providers Care Member Service Specialist Name Role Phone Ivana Martinez APRN Primary Care Provider Reason for Visit * Reason Onset Date Comments Medication Refill 10/20/2022 Encounter Details Date Type Department Care Team (Late st Contact Info) Description 10/20/2022 Refill [facility] [place] [facility] [address] [place] [address] Ivana Martinez APRN [address] [place] [phone] Medication Refill Social History Tobacco Use [...] documented as of this encounter Care Teams Member Service Specialist Relationship Specialty Start Date End Date Ivana Martinez APRN PCP - General Family Medicine 05/13/22 01/27/24 documented as of this encounter
[2025-05-05 09:32] LABS: Hematocrit 42.6 % (42.0-52.0); Hemoglobin 15.2 g/dl (14.0-18.0); Mean Corpuscular HGB Conc 35.7 g/dl (31.0-36.0); Mean Corpuscular Hemoglobin 32.5 pg (27.0-33.0); Mean Corpuscular Volume 91.2 fL (80.0-98.0); NRBC Abs Auto 0.000 X10*3/uL (0.0-0.012); NRBC Pct Auto 0.0 /100WBC (0.0-0.2); Platelet Count 303 X10*3/uL (160-400); Red Blood Count 4.67 X10*6/uL (4.60-5.80); White Blood Count 7.9 X10*3/uL (4.8-10.8)
[2025-05-05 09:46] LABS: Appearance Urine Clear; Glucose Urine UA Negative (Negative); PH 5.5 (5.0-9.0); Specific Gravity - Urine 1.010 (1.005-1.025); UMIC TRIGGER UA YES
[2025-05-05 10:12] LABS: Alanine Aminotransferase 29 U/L (0-40); Albumin Level 4.7 g/dL (3.5-5.0); Alkaline Phosphatase 62 U/L (39-117); Anion Gap 12 (12-20); Aspartate Amino Transferase 36 U/L (5-37); Blood Urea Nitrogen 4 mg/dL (9-16); Calcium 9.0 mg/dL (8.4-10.2); Carbon Dioxide 27 mmol/L (22-29); Chloride 105 mmol/L (96-108); Cholesterol 148 mg/dL (<200); Estimated Glomerular Filt Rate > 60; HDL Cholesterol 47 mg/dL (>40); Potassium 4.1 mmol/L (3.3-5.1); Sodium 140 mmol/L (135-145); Total Protein 7.0 g/dL (6.5-8.0); Triglycerides 99 mg/dL (<150)
[2025-05-05 10:17] LABS: Thyroid Stimulating Hormone 2.07 uIU/mL (0.32-4.0)
== END 2025-05-05 08:44 | disposition home or self-care (01) ==
LOC: HO.LAB 08:43
PROVIDERS: PCP Internal Medicine; Visit Provider Internal Medicine
DX: I10 Essential (primary) hypertension (principal); E03.9 Hypothyroidism, unspecified
CPT/HCPCS: 36415; 80048; 80061; 80076; 81001; 84443; 85027; 93005

== ENCOUNTER → 2025-05-05 08:50 | Outpatient (BNV) | payer OTHER, SELFPAY | PROVIDERS: PCP Internal Medicine; Visit Provider Internal Medicine | DX: R07.9 Chest pain, unspecified (principal) | CPT/HCPCS: 93010 ==

== ENCOUNTER 2025-05-30 10:49 | Outpatient (AMB) | payer OTHER, SELFPAY ==
--- OUTSIDE RECORDS SUMMARY | 2022-10-21 14:14 | XMS_ITS | Encounter Summary ---
Author Organization [facility] Address [address] [place] [address] Care Team Providers Care District Wire Chief Name Role Phone Pcp, No Primary Care Provider Unavailabl e Reason for Referral * Diagnostic Imaging (Routine) - Closed Specialty Diagnoses / Procedures Referred By Christian chatman Referred To Contact Diagnoses Microhematuria Procedures CT Urogram w w/o contrast w/3D Matthew Rodney MD [address] [place] [address] Phone: tel: fax: Referral ID Status Reason Start Date Expiration Date Visits Re quested Visits Authorized [id number] Closed 10/08/2022 12/11/2022 1 1 Reason for Visit * Diagnostic Imaging (Routine) - Closed Specialty Diagnoses / Procedures Referred By Christian chatman Referred To Contact Diagnoses Microhematuria Procedures CT Urogram w w/o contrast w/3D Matthew Rodney MD [address] [place] [address] Phone: tel: fax: Referral ID Status Reason Start Date Expiration Date Visits Re quested Visits Authorized [id number] Closed 10/08/2022 12/11/2022 1 1 Encounter Details Date Type Department Care Team (Late st Contact Info) Description 10/21/2022 2:14 PM EDT Hospital Encounter [facility] [address] [place] [phone] Microhematuria Social History Tobacco Use Types Packs/Day [...] mL documented in this encounter Care Teams District Wire Chief Relationship Specialty Start Date End Date Pcp, No PCP - General 10/21/22 documented as of this encounter
[2025-05-30 10:57] VITALS: PULSE 79; O2SAT 99; BMI 28.6
--- NOTE | 2025-05-30 10:57 | MHC.OFFVIS ---
Vital Signs 05/30/25 10:57 Height 5 ft 9 in Weight 194 lb BMI 28.6 Pulse 79 Pulse Source Pulse Oximeter Pulse Oximetry (%) 99 Intake Visit Reasons: Lenzy Reff/ Tinea Coporus Allergies No Known Allergies Allergy (Verified 05/30/25 10:57) HPI Comments Details: History of Present Illness The patient is a 39-year-old male presenting with a persistent rash. Four years ago, he developed itchy, scaling lesions initially affecting the abdomen before advancing to the neck and upper back. Recently, lesions have also been noted on the face. Previous biopsies were unremarkable, and a working diagnosis of tinea corporis was made based on scraping results, though not confirmed by culture or biopsy. The rash has not responded well to multiple topical treatments, including ketoconazole, and there is no documented evidence of effective treatment with oral antifungals such as fluconazole 400 mg weekly. Despite the persistence of symptoms, the patient denies experiencing systemic symptoms such as fever or weight loss. Differentials such as trichophytum indotineae are considered due to potential antifungal resistance, along with syphilis and HIV-related skin conditions as alternative diagnoses. Review of Systems - General: Denies fever, chills, weight loss. - Skin: Reports scaling, itchy rash on abdomen, neck, upper back, and face. - Respiratory: Denies cough or respiratory symptoms. - Genitourinary: Denies urinary symptoms or pain. Physical Exam - General- Vital signs stable; afebrile. - HEENT- Pupils equal and reactive to light and accommodation; oropharynx clear. - Respiratory- Lungs clear to auscultation. - Cardiovascular- Heart rate regular; no murmurs noted. - Abdomen- Soft, nontender. - Skin- Scaly areas of dense adherent scales present on the back and face; scales noted not easily detachable. Results Plan Patient was informed and verbally consented to the use of an ambient scribe for clinic note documentation during this visit. 1. 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 The likelihood of antifungal resistance necessitated this treatment change. Temporary cessation of Viagra was advised during voriconazole treatment to avoid drug interactions. A follow-up is planned in one month to assess therapeutic response. 2. 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 A serological panel, including RPR and various hepatitis and HIV tests, was initiated to rule out differential diagnoses. The results will help refine the treatment approach. Monitoring the patient's reaction to voriconazole will be crucial for deciding future treatment modifications. Discussion Notes I discussed with the patient the suspected diagnosis of a resistant fungal infection, likely due to Trichophyton species. I explained the rationale for prescribing voriconazole, highlighting its potential to address the resistant nature of the infection. The patient was informed of the importance of compliance with the prescribed regimen and the temporary cessation of sildelfanil to avoid potential interactions. Furthermore, I reviewed the importance of the ordered serological tests to rule out alternative causes for the rash, such as syphilis or an HIV-related condition. The patient was advised to return in a month for follow-up and to notify me if symptoms worsen or fail to improve. Medical Decision Making Given the chronicity and persistence of the rash, resistant Trichophyton infection is suspected. The choice of voriconazole is a strategic response to antifungal resistance observed with previously tried medications. The goal is to observe improvement with voriconazole therapy over the next month. Considering the potential alternative diagnoses, a comprehensive serological screening panel is essential for excluding conditions like syphilis or HIV. This thorough approach will ensure accurate diagnosis and effective treatment management. Patient Instructions - Take voriconazole 200 mg daily as prescribed. - Stop taking sildenafil while using voriconazole if able - Get blood tests for RPR, hepatitis, and HIV as ordered. - Return for follow-up in one month or sooner if symptoms worsen. - Report any side effects from the medication. [facility] Medical History (Updated 05/30/25 @ 12:06 by Petrona Regan MD) Rash B12 deficiency Elevated bilirubin Follow-up exam, 3-6 months since previous exam Alcohol use disorder, mild, abuse Tobacco use disorder Tinea corporis Acquired hypothyroidism Essential hypertension Surgical History No pertinent past surgical history Social History Housing: Condominium Alcohol intake: current Alcohol intake frequency: a few times a week Patient Tobacco Use Status: Current everyday Tobacco user (chewing ) Tobacco use type: Smokeless Tobacco e-Cigarette/Vaping Use: Never Used Second Hand Smoke Exposure: Yes service: No Current occupational status: employed 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 Cognitive needs: No Hearing needs: No Vision needs: No Physical Exam Vital Signs: Last Vital Signs Pulse 79 05/30/25 10:57 Pulse Ox 99 05/30/25 10:57 BMI result Body Mass Index 28.6 Assessment & Plan Assessment & Plan (1) Rash: Code(s): R21 - Rash and other nonspecific skin eruption Category: Medical Plan: na Orders: Orders Hepatitis B Surface Ab Qnt Today R21 - Rash and other nonspecific skin eruption Hepatitis B Surface Antibody Today R21 - Rash and other nonspecific skin eruption Syphilis Screen Today R21 - Rash and other nonspecific skin eruption HIV Ab/Ag Today R21 - Rash and other nonspecific skin eruption Hepatitis B Core Antibody Today R21 - Rash and other nonspecific skin eruption Hepatitis C Antibody Reflex Today R21 - Rash and other nonspecific skin eruption Medications: New voriconazole administer on empty stomach, at least 1 hour before or after meal(s) 200 mg PO DAILY 30 tabs 3RF 30 days Discontinued sildenafil (pulm.hypertension) administer doses at least 4-6 hours apart Discontinued Reason: Doctor's Order 60 mg (3 x 20 mg) PO DAILY 90 days 270 tabs 1RF Coding Level of Care Code New Pt Level 3 (79475) Diagnoses Rash R21
--- OUTSIDE RECORDS SUMMARY | 2025-05-30 13:23 | XMS_ITS | Clinical Summary ---
Author Organization [facility] Address [address] [place] [address] Care Team Providers Care Hourly Shift Name Role Phone Pcp, No Primary Care [...] patient's age to complete this topic Insurance [facility] Care Teams Hourly Shift Relationship Specialty Start Date End Date Pcp, No PCP - General 10/21/22
--- OUTSIDE RECORDS SUMMARY | 2025-05-30 13:23 | XMS_ITS | Encounter Summary ---
Author Organization [facility] Address [address] [place] [address] Care Team Providers Care Insurance Law Specialist Name Role Phone Ivana Martinez HECTOR Primary Care Provider Encounter Details Date Type Department Care Team (Late st Contact Info) Description 11/08/2020 Scanned Document [address]Shellie REEL Qualified [facility] [address] [place] [address] External, Provider Social History Tobacco Use [...] documented as of this encounter Care Teams Insurance Law Specialist Relationship Specialty Start Date End Date Ivana Martinez APRN PCP - General Family Medicine 05/13/22 01/27/24 documented as of this encounter
--- OUTSIDE RECORDS SUMMARY | 2025-05-30 13:23 | XMS_ITS | Encounter Summary ---
Author Organization [facility] Address [address] [place] [address] Care Team Providers Care Tripe Cooker Name Role Phone Andrew Martinezhanie HECTOR Primary Care Provider Encounter Details Date Type Department Care Team (Late st Contact Info) Description 11/17/2021 Scanned Document [facility] Internal Medicine [address], [address] [place], [place] [id number] Zoya Clayton MD [facility] [address] [phone] Social History Tobacco Use Types [...] documented as of this encounter Care Teams Tripe Cooker Relationship Specialty Start Date End Date Ivana Martinez APRN PCP - General Family Medicine 05/13/22 01/27/24 documented as of this encounter
--- OUTSIDE RECORDS SUMMARY | 2025-05-30 13:23 | XMS_ITS | Encounter Summary ---
Author Organization [facility] Address [address] [place] [address] Care Team Providers Care Box Closing Machine Operator Name Role Phone Ivana Martinez HECTOR Primary Care Provider Reason for Visit * Reason Comments Medication Refill Encounter Details Date Type Department Care Team (Late st Contact Info) Description 06/20/2021 Refill [facility] Internal Medicine [address] [place] [address] Zoya Clayton MD [facility] [address] [phone] Medication Refill Social History Tobacco [...] documented as of this encounter Care Teams Box Closing Machine Operator Relationship Specialty Start Date End Date Ivana Martinez APRN PCP - General Family Medicine 05/13/22 01/27/24 documented as of this encounter
--- OUTSIDE RECORDS SUMMARY | 2025-05-30 13:23 | XMS_ITS | Encounter Summary ---
Author Organization [facility] and Home Health Address [address] [place] [address] Care Team Providers Care Senior Solutions Consultant Name Role Phone Johannaastondidi Ivana HECTOR Primary Care Provider Encounter Details Date Type Department Care Team (Late st Contact Info) Description 11/19/2021 Scanned Document [facility] Internal Medicine [address], [address] [place], [place] [phone] Provider, Historical . Social History Tobacco Use [...] RIGHT AP INTERNA L AP EXTERNAL AXILLARY ([facility] Y) Routine 11/17/2021 documented [...] as of this encounter Care Teams Senior Solutions Consultant Relationship Specialty Start Date End Date Ivana Martinez APRN PCP - General Family Medicine 05/13/22 01/27/24 documented as of this encounter
--- OUTSIDE RECORDS SUMMARY | 2025-05-30 13:23 | XMS_ITS | Encounter Summary ---
Author Organization [facility] and Home Health Address [address] [place] [address] Care Team Providers Care Office Clinician Name Role Phone Ivana Martinez HECTOR Primary Care Provider Reason for Visit * Reason Comments Medication Refill Encounter Details Date Type Department Care Team (Late st Contact Info) Description 09/29/2020 Refill [facility] Family Medicine [address] [place], [place] [id number] Zoya Clayton MD [facility] [address] [phone] Medication Refill Social History Tobacco [...] documented as of this encounter Care Teams Office Clinician Relationship Specialty Start Date End Date Ivana Martinez APRN PCP - General Family Medicine 05/13/22 01/27/24 documented as of this encounter
--- OUTSIDE RECORDS SUMMARY | 2025-05-30 13:23 | XMS_ITS | Encounter Summary ---
Author Organization [facility] and [facility] Address [address] [place] [address] Care Team Providers Care Publisher Assistant Name Role Phone Ivana Martinez HECTOR Primary Care Provider Encounter Details Date Type Department Care Team (Late st Contact Info) Description 08/27/2021 Scanned Document [address]ie Unda [place] [address] [place] [address] Provider, historical . Social History Tobacco [...] documented as of this encounter Care Teams Publisher Assistant Relationship Specialty Start Date End Date Ivana Martinez APRN PCP - General Family Medicine 05/13/22 01/27/24 documented as of this encounter
--- OUTSIDE RECORDS SUMMARY | 2025-05-30 13:23 | XMS_ITS | Encounter Summary ---
Author Organization [facility] and Home Health Address [address] [place] [address] Care Team Providers Care Metal Engraver Name Role Phone Ivana Martinez HECTOR Primary Care Provider Reason for Visit * Reason Onset Date Comments Medication Refill 10/29/2021 Encounter Details Date Type Department Care Team (Late st Contact Info) Description 10/29/2021 Refill [facility] Internal Medicine [address], [address] [place] [address] Zoya Clayton MD [address] [place] [phone] Medication Refill Social History Tobacco Use [...] documented as of this encounter Care Teams Metal Engraver Relationship Specialty Start Date End Date Ivana Martinez APRN PCP - General Family Medicine 05/13/22 01/27/24 documented as of this encounter
--- OUTSIDE RECORDS SUMMARY | 2025-05-30 13:23 | XMS_ITS | Encounter Summary ---
Author Organization [facility] and [facility] Address [address] [place] [address] Care Team Providers Care Adjunct Writing Instructor Name Role Phone Ivana Martinez HECTOR Primary Care Provider Encounter Details Date Type Department Care Team (Late st Contact Info) Description 10/12/2021 Scanned Document [facility] G[facility] [address] [place], [place] [address] Matthew Huynh MD [address] [place] [address] Social History Tobacco Use Types [...] documented as of this encounter Care Teams Adjunct Writing Instructor Relationship Specialty Start Date End Date Ivana Martinez APRN PCP - General Family Medicine 05/13/22 01/27/24 documented as of this encounter
--- OUTSIDE RECORDS SUMMARY | 2025-05-30 13:23 | XMS_ITS | Encounter Summary ---
Author Organization [facility] and Home Health Address [address] [place] [address] Care Team Providers Care Integrated Logistics Support Manager Name Role Phone Andrew Martinezhanie HECTOR Primary Care Provider Encounter Details Date Type Department Care Team (Late st Contact Info) Description 08/22/2021 Scanned Document [facility] Internal Medicine [address], [address] [place], [place] [address] Zoya Clayton MD [facility] [address] [phone] Social History Tobacco Use Types [...] documented as of this encounter Care Teams Integrated Logistics Support Manager Relationship Specialty Start Date End Date Ivana Martinez APRN PCP - General Family Medicine 05/13/22 01/27/24 documented as of this encounter
--- OUTSIDE RECORDS SUMMARY | 2025-05-30 13:23 | XMS_ITS | Encounter Summary ---
Author Organization [facility] and Home Health Address [address] [place] [address] Care Team Providers Care Hide Inspector And Sorter Name Role Phone Ivana Martinez PUBLIC HEALTH TECHNICIAN Primary Care Provider Encounter Details Date Type Department Care Team (Late st Contact Info) Description 05/05/2019 Scanned Document Scarlet Espinosa M.D. [address] [facility] [address] [place] [address] Jeffy Espinosa MD [address] [place] [phone] Social History Tobacco Use Types Packs/Day [...] documented as of this encounter Care Teams Hide Inspector And Sorter Relationship Specialty Start Date End Date Ivana Martinez APRN PCP - General Family Medicine 05/13/22 01/27/24 documented as of this encounter
--- OUTSIDE RECORDS SUMMARY | 2025-05-30 13:23 | XMS_ITS | Encounter Summary ---
Author Organization [facility] and [facility] Health Address [address] [place] [address] Care Team Providers Care Home Hospice Aide Name Role Phone Andrew Martinezhanie HECTOR Primary Care Provider Encounter Details Date Type Department Care Team (Late st Contact Info) Description 11/13/2020 Scanned Document [facility] Internal Medicine [address], [address] [place], [place] [address] Zoya Clayton MD [facility] [address] [phone] Social History Tobacco Use Types [...] documented as of this encounter Care Teams Home Hospice Aide Relationship Specialty Start Date End Date Ivana Martinez APRN PCP - General Family Medicine 05/13/22 01/27/24 documented as of this encounter
--- OUTSIDE RECORDS SUMMARY | 2025-05-30 13:23 | XMS_ITS | Encounter Summary ---
Author Organization [facility] and Home Health Address [address] [place] [address] Care Team Providers Care Grooving Lathe Tender Name Role Phone Michelle Ivana YOUNG Primary Care Provider Encounter Details Date Type Department Care Team (Late st Contact Info) Description 08/18/2021 EpicOnHand Encounter [facility] Internal Medicine [address] [place] [address] Leny Hernandez MD Social History Tobacco Use [...] documented as of this encounter Care Teams Grooving Lathe Tender Relationship Specialty Start Date End Date Ivana Martinez APRN PCP - General Family Medicine 05/13/22 01/27/24 documented as of this encounter
--- OUTSIDE RECORDS SUMMARY | 2025-05-30 13:23 | XMS_ITS | Encounter Summary ---
Author Organization [facility] and [facility] Address [address] [place] [address] Care Team Providers Care Senior Fund Accountant Name Role Phone JohannaAndrew mcelroyhanie HECTOR Primary Care Provider Encounter Details Date Type Department Care Team (Late st Contact Info) Description 09/26/2021 Scanned Document [facility] Internal Medicine [address], [address] [place], [place] [phone] External, Provider Social History Tobacco Use Types [...] as of this encounter Care Teams Senior Fund Accountant Relationship Specialty Start Date End Date Ivana Martinez APRN PCP - General Family Medicine 05/13/22 01/27/24 documented as of this encounter
--- OUTSIDE RECORDS SUMMARY | 2025-05-30 13:23 | XMS_ITS | Encounter Summary ---
Author Organization [facility] and [facility] Address [address] [place] [address] Care Team Providers Care Wellness Health Coach Name Role Phone Ivana Martinez HECTOR Primary Care Provider Reason for Visit * Reason Onset Date Comments Medication Refill 07/12/2021 Encounter Details Date Type Department Care Team (Late st Contact Info) Description 07/12/2021 Refill [facility] Internal Medicine [address] [place] [address] Zoya Clayton MD [address] [place] [phone] Medication Refill Social History Tobacco Use [...] documented as of this encounter Care Teams Wellness Health Coach Relationship Specialty Start Date End Date Ivana Martinez APRN PCP - General Family Medicine 05/13/22 01/27/24 documented as of this encounter
--- OUTSIDE RECORDS SUMMARY | 2025-05-30 13:23 | XMS_ITS | Encounter Summary ---
Author Organization [facility] and [facility] Health Address [address] [place] [address] Care Team Providers Care Tape Recorder Repairer Name Role Phone Ivana Martinez HECTOR Primary Care Provider Reason for Visit * Reason Comments Medication Refill Encounter Details Date Type Department Care Team (Late st Contact Info) Description 06/01/2021 Refill [facility] Internal Medicine [address] [place] [address] Zoya Clayton MD [facility] [address] [phone] Medication Refill Social History Tobacco [...] as of this encounter Care Teams Tape Recorder Repairer Relationship Specialty Start Date End Date Ivana Martinez APRN PCP - General Family Medicine 05/13/22 01/27/24 documented as of this encounter
--- OUTSIDE RECORDS SUMMARY | 2025-05-30 13:23 | XMS_ITS | Encounter Summary ---
Author Organization [facility] Address [address] [place] [address] Care Team Providers Care Visual Merchandising Coordinator Name Role Phone Ivana Martinez APRN Primary Care Provider Encounter Details Date Type Department Care Team (Late st Contact Info) Description 02/26/2023 Orders Only [facility] [place] [facility] [address] [place], [place] [id number] Ivana Martinez APRN [address] [place] [address] [address] [place] [address] Hypertension, unspecified type; Hypothyroidism, unspecified [...] - 11.0 x1000/ L 02/26/2023 3:06 PM [facility] RBC 5.06 4.00 - 6.00 M/ L 02/26/2023 3:06 PM [facility] Hemoglobin 16.4 13.2 - 17.1 g/dL 02/26/2023 3:06 PM [facility] Hematocrit 44.90 38.50 - 50.00 % 02/26/2023 3:06 PM [facility] MCV 88.7 80.0 - 100.0 fL 02/26/2023 3:06 PM [facility] MCH 32.4 27.0 - 33.0 pg 02/26/2023 3:06 PM [facility] MCHC 36.5(H) 31.0 - 36.0 g/dL 02/26/2023 3:06 PM [facility] RDW-CV 12.6 11.0 - 15.0 % 02/26/2023 3:06 PM [facility] Platelets 331 150 - 420 x1000/ L 02/26/2023 3:06 PM [facility] MPV 9.8 8.0 - 12.0 fL 02/26/2023 3:06 PM [facility] Neutrophils 42.8 39.0 - 72.0 % 02/26/2023 3:06 PM [facility] Lymphocytes 37.2 17.0 - 50.0 % 02/26/2023 3:06 PM [facility] Monocytes 9.5 4.0 - 12.0 % 02/26/2023 3:06 PM [facility] Eosinophils 8.8(H) 0.0 - 5.0 % 02/26/2023 3:06 PM [facility] Basophil 1.3 0.0 - 1.4 % 02/26/2023 3:06 PM [facility] Immature Granulocytes 0.4 0.0 - 1.0 % 02/26/2023 3:06 PM [facility] nRBC 0.0 0.0 - 1.0 % 02/26/2023 3:06 PM EDT [facility] ANC(Abs Neutrophil Count) 2.30 2.00 - 7.60 x 1000/ L 02/26/2023 3:06 PM T [facility] Absolute Lymphocyte Count 2.00 0.60 - 3.70 x 1000/ L 02/26/2023 3:06 PM T [facility] Monocyte Absolute Count 0.51 0.00 - 1.00 x 1000/ L 02/26/2023 3:06 PM EDT [facility] Eosinophil Absolute Count 0.47 0.00 - 1.00 x 1000/ L 02/26/2023 3:06 PM T [facility] Basophil Absolute Count 0.07 0.00 - 1.00 x 1000/ L 02/26/2023 3:06 PM [facility] Absolute Immature Granulocyte Count 0.02 0.00 - 0.30 x 1000/ L 02/26/2023 3:06 PM [facility] Absolute nRBC 0.00 0.00 - 1.00 x 1000/ L 02/26/2023 3:06 PM [facility] Blood Venipuncture / Unknown 02/26/2023 11:12 AM EDT 02/26/2023 11:12 AM EDT us Ivana Martinez PROSTHODONTIST LAB BLOOD ORDERABLES Fi nal Result [address] [phone] * (ABNORMAL) Comprehensive metabolic panel (02/26/2023 11:12 AM EDT) Sodium 140 136 - 144 mmol/L 02/26/2023 3:26 PM EDT [facility] Potassium 4.1 3.3 - 5.3 mmol/L 02/26/2023 3:26 PM T [facility] Chloride 99 98 - 107 mmol/L 02/26/2023 3:26 PM EDT [facility] CO2 30 20 - 30 mmol/L 02/26/2023 3:26 PM T [facility] Anion Gap 11 7 - 17 02/26/2023 3:26 PM [facility] Glucose 96 70 - 100 mg/dL 02/26/2023 3:26 PM [facility] BUN 8 6 - 20 mg/dL 02/26/2023 3:26 PM [facility] Creatinine 0.76 0.40 - 1.30 mg/dL 02/26/2023 3:26 PM [facility] Calcium 10.0 8.8 - 10.2 mg/dL 02/26/2023 3:26 PM [facility] BUN/Creatinine Ratio 10.5 8.0 - 23.0 02/26/2023 3:26 PM [facility] Total Protein 7.7 6.6 - 8.7 g/dL 023 3:26 PM [facility] Albumin 5.0(H) 3.6 - 4.9 g/dL 02/26/2023 3:26 PM [facility] Total Bilirubin 0.4 <=1.2 mg/dL 02/27/20 3:26 PM [facility] Alkaline Phosphatase 57 9 - 122 U/L 02/26/2023 3:26 PM [facility] Alanine Aminotransferase (ALT) 27 9 - 59 U/L 02/26/2023 3:26 PM [facility] Comment:Calcium dobesilate c an cause artificially low ALT results at therapeutic concentrations Aspartate Aminotransferase (AST) 40(H) 10 - 35 U/L 02/26/2023 3:26 PM [facility] Globulin 2.7 2.3 - 3.5 g/dL 02/26/2023 3:26 PM [facility] A/G Ratio 1.9 1.0 - 2.2 02/26/2023 3:26 PM [facility] AST/ALT Ratio 1.5 Reference Range Not Established 02/26/2023 3:26 PM [facility] eGFR (Creatinine) >60 >=60 mL/min/1.73m2 02/26/2023 3:26 PM [facility] Comment: Values < 60 mL/min/1.73 m2 may indicate CKD if present for more than three months AND creatinine is at steady state. The eGFR provides a rough estimate of kidney function. On 03/19/22 all [facility] Clinical Labs and [facility] began using a [id number]-[id number] formula for estimating GFR called CKD-EPI Creatinine 2020. This equation reports eGFR based on creatinine, patient age, clinical sex, and is standardized to a body surface area of 1.73 m2. For the same creatinine, this new race-free eGFR will be lower than prior reported Black eGFR results and higher than prior Non-Black eGFR results. For further guidance, please refer to the CKD: Adult Family Development Specialist Signature pathway. Blood Venipuncture / Unknown 02/26/2023 11:12 AM EDT 02/26/2023 11:12 AM EDT Ivana Martinez APRN LAB BLOOD ORDERABLES Fi nal Result [address] [phone] * (ABNORMAL) Hemoglobin A1c (02/26/2023 11:12 AM EDT) Hemoglobin A1c 5.8(H) 4.0 - 5.6 % 02/26/2023 7:37 PM T [facility] Comment: Hemoglobin A1c values of [...] the calculation proposed by the [place] Diabetes [employer] (Diabetes Care 31: 1-6, 2008). It may have less accuracy in children, women and patients with certain erythrocyte disorders. Blood Venipuncture / Unknown 02/26/2023 11:12 AM EDT 02/26/2023 11:12 AM EDT us Ivana Martinez PROSTHODONTIST LAB BLOOD ORDERABLES Fi nal Result Performing Organization Address City/State/[facility] Co de Phone Number [address] [phone] * (ABNORMAL) Lipid panel (02/26/2023 11:12 AM EDT) Cholesterol 180 See Comment mg/dL 02/26/2023 3:26 PM T [facility] Comment: Total Cholesterol (mg/dL) Adults (>18 years) Children (<18 years) Desirable <200 <170 Borderline-High 200-239 170-199 High >=240 >=200 HDL 62 >=40 mg/dL 02/26/2023 3:26 PM T [facility] Triglycerides 161(H) See Comment mg/dL 02/26/2023 3:26 PM [facility] Comment: Triglycerides (mg/dL) Adults (>18 years) Children (<18 years) Desirable <150 Not Established Borderline-High 150-199 Not Established High 200-499 Not Established Chol/HDL Ratio 2.9 0.0 - 5.0 02/26/2023 3:26 PM T [facility] LDL Calculated 91 See Comment mg/dL 02/26/2023 3:26 PM EDT [facility] Comment: Effective 01/09/2022, LDL is calculated using the El-NIH equation, which is more accurate than the Friedewald and Gato-Sanchez equations. LDL Cholesterol (mg/dL) Adults (>18 years) Children (<18 years) Desirable <100 <110 Above Desirable 100-129 Not Established Borderline-High 130-159 110-129 High 160-189 >=130 Very High >=190 Not Established Blood Venipuncture / Unknown 02/26/2023 11:12 AM EDT 02/26/2023 11:12 AM EDT [facility] LAB BLOOD ORDERABLES Fi nal Result Performing Organization Address [facility] Co de Phone Number [address] [phone] * (ABNORMAL) Vitamin D, 25-hydroxy (02/26/2023 11:12 AM EDT) Vitamin Z39-Fuapvnl 11.1(L) 30.0 - 100.0 ng/mL 02/27/2023 10:42 AM EDT [facility] Comment: Vitamin D Status: Results in ng/mL <10.0: Deficient 10.0 - 29.9: Insufficient 30.0 - 100.0: Sufficient >100: Toxic Reference ranges established by [employer]. Blood Venipuncture / Unknown 02/26/2023 11:12 AM EDT 02/26/2023 11:12 AM EDT [facility] LAB BLOOD ORDERABLES Fi nal Result Performing Organization Address [facility]/ZIP Co de Phone Number [address] [phone] * (ABNORMAL) Gamma GT (02/26/2023 11:12 AM EDT) GGT 108(H) <48 U/L 02/26/2023 3:26 PM EDT [facility] Blood Venipuncture / Unknown 02/26/2023 11:12 AM EDT 02/26/2023 11:12 AM EDT Ivana Martinez [facility] LAB BLOOD ORDERABLES Fi nal Result Performing Organization Address [facility] Co de Phone Number [address] [phone] * TSH w/reflex to FT4 (BH GH LMW Q YH) (02/26/2023 11:12 AM EDT) Thyroid Stimulating Hormone 2.550 See Comment IU/mL 02/26/2023 3:26 PM EDT [facility] Comment: Male & Non- Females: 0.270-4.200 IU/mL 1st Trimester: 0.110-3.480 IU/mL 2nd Trimester: 0.320-3.850 IU/mL Blood Venipuncture / Unknown 02/26/2023 11:12 AM EDT 02/26/2023 11:12 AM EDT Ivana Martinez PROSTHODONTIST LAB BLOOD ORDERABLES Fi nal Result Performing Organization Address [facility]/ZIP Co de Phone Number [address] [phone] documented in this encounter Visit Diagnoses Diagnosis Hypertension, unspecified type Hypothyroidism, unspecified type LFT elevation Other abnormal blood chemistry Vitamin D deficiency Unspecified vitamin D deficiency documented in this encounter Additional Health Concerns Assessment Noted Time PHQ-9 Depression Total Score: 0 02/27/20 23 10:41 AM EDT documented as of this encounter Care Teams Visual Merchandising Coordinator Relationship Specialty Start Date End Date Ivana Martinez APRN PCP - General Family Medicine 05/13/22 01/27/24 documented as of this encounter
--- OUTSIDE RECORDS SUMMARY | 2025-05-30 13:23 | XMS_ITS | Encounter Summary ---
Author Organization [facility] Address [address] [place] [address] Care Team Providers Care Shell Fisherman Name Role Phone Ivana Martinez APRN Primary Care Provider Encounter Details Date Type Department Care Team (Late st Contact Info) Description 05/06/2019 Scanned Document Scarlet Espinosa M.D. [address] [facility] [address] [place] [address] Jeffy Espinosa MD [address] [place] [phone] Social History Tobacco Use Types Packs/Day [...] documented as of this encounter Care Teams Shell Fisherman Relationship Specialty Start Date End Date Ivana Martinez APRN PCP - General Family Medicine 05/13/22 01/27/24 documented as of this encounter
--- OUTSIDE RECORDS SUMMARY | 2025-05-30 13:23 | XMS_ITS | Encounter Summary ---
Author Organization [facility] Address [address] [place] [address] Care Team Providers Care Parking Technician Name Role Phone Physician, Pcp Unknown Primary Care Provider Ale vailable Encounter Details Date Type Department Care Team (Late st Contact Info) Description 08/19/2024 Lab Requisition [facility] - Main Lab [address] [facility] rumr: [place] [address] Denzel Longo MD [address] [place] [address] [place] [phone] Local infection of the skin and subcutaneous [...] after 4 Weeks 09/16/2024 1:07 PM EST [facility] Skin 08/19/2024 08/19/2024 5:1 5 PM EST us Denzel Longo MD LAB MICROBIOLOGY - G ENERAL ORDERABLES Final Result [facility] [address] [place] [address], documented in this encounter Visit Diagnoses Diagnosis Local infection of the skin and subcutaneous tissue, unspecified documented in this encounter Care Teams Parking Technician Relationship Specialty Start Date End Date Physician, Pcp Unknown PCP - General 02/22/25 documented as of this encounter
--- OUTSIDE RECORDS SUMMARY | 2025-05-30 13:23 | XMS_ITS | Encounter Summary ---
Author Organization [facility]up and Home Health Address [address] [place] [address] Care Team Providers Care New Car Get Ready Mechanic Name Role Phone Andrew Martinezhanie HECTOR Primary Care Provider Encounter Details Date Type Department Care Team (Late st Contact Info) Description 09/26/2021 Scanned Document [facility] Internal Medicine [address] [place], [place] [address] Zoya Clayton MD [facility] [address] [phone] Social History Tobacco Use Types [...] documented as of this encounter Care Teams New Car Get Ready Mechanic Relationship Specialty Start Date End Date Ivana Martinez APRN PCP - General Family Medicine 05/13/22 01/27/24 documented as of this encounter
--- OUTSIDE RECORDS SUMMARY | 2025-05-30 13:23 | XMS_ITS | Clinical Summary ---
Author Organization [address] [facility] Address [address] [place] [address] Phone Care Team Providers Care Scheduling Coordinator Name Role Phone Physician, Pcp Unknown Primary Care Provider Ale vailable Social History Tobacco Use Types Packs/Day Years [...] patient's age to complete this topic Insurance MEDICAID - [place] [facility] Care Teams Scheduling Coordinator Relationship Specialty Start Date End Date Physician, Pcp Unknown PCP - General 02/22/25
--- OUTSIDE RECORDS SUMMARY | 2025-05-30 13:23 | XMS_ITS | Clinical Summary ---
Author Organization [address] Address [address] [place] [address] Care Team Providers Care Yeast Supervisor Name Role Phone Unavailable Primary Care Provider [...] - 5.6 % 02/26/2023 7:37 PM EDT [facility] Comment: Hemoglobin A1c values of 5.7-6.4 % [...] mg/dL 120 mg/dL 02/26/2023 7:37 PM EDT [facility] Comment: Estimated average glucose (eAG) is a calculated value designed to estimate the expected average blood glucose level throughout the day from a single measurement of glycated hemoglobin A1C (HbA1c) and follows the calculation proposed by the [place] [employer] (Diabetes Care 31: 1-6, 2008). It may have less accuracy in children, women and patients with certain erythrocyte disorders. Blood Venipuncture / Unknown 02/26/2023 11:12 AM EDT 02/26/2023 11:12 AM EDT Ivana Martinez APRN LAB BLOOD ORDERABLES Fi nal Result Performing Organization Address [facility]/State/ZIP Co de Phone Number [address] [phone] * Hepatitis C Ab with reflex to HCV PCR (05/13/2022 10:46 AM EDT) Hepatitis C Ab Initial Result 0.03 S/CO 05/13/2022 1:44 PM EDT [facility] Hepatitis C Ab Interpretation Non-React lilo Non-React lilo 05/13/2022 1:44 PM T [facility] Blood Venipuncture / Unknown 05/13/2022 10:46 AM EDT 05/13/2022 10:46 AM EDT us Ivana Martinez KNIFE CUTTER LAB BLOOD ORDERABLES Fi nal Result [address] [address], [facility] [phone] * Colonoscopy (10/12/2021 7:19 AM EST) Colonoscopy Endoscopy Patient Name: Jay Guillermo Procedure Date: 10/12/2021 7:19 AM Date of : 1985 Age: 36 Gender: Male Admit Type: Outpatient [facility] #: [id number] Note Status: Finalized Attending MD: Matthew Huynh [...] and oxygen saturations were monitored continuously. The [id number] was introduced through the anus and advanced [...] the patient. Procedure Code(s): --- Professional --- 64856, Colonoscopy, flexible; with biopsy, single or multiple Diagnosis Code(s): --- Professional --- K62.89, Other specified diseases of anus and rectum R10.84, Generalized abdominal pain R19.7, Diarrhea, unspecified CPT copyright 2020 [place]. All rights reserved. The codes documented in this report are preliminary and upon manufacturing machine operator review may be revised to [...] Documents on File Type Date Recorded Patient Yardage Control Operator Forming Expl anation Healthcare Yardage Control Operator Forming/Po wer of Space Operations 03/19/2021 4:27 PM 2020
--- OUTSIDE RECORDS SUMMARY | 2025-05-30 13:24 | XMS_ITS | Encounter Summary ---
Author Organization [facility] and Home Health Address [address] [place] [address] Care Team Providers Care Medical Director Of Hospice Name Role Phone Andrew Martinezhanie HECTOR Primary Care Provider Reason for Visit * Reason Comments Medication Refill Encounter Details Date Type Department Care Team (Late st Contact Info) Description 06/22/2022 Refill [facility] Internal Medicine [address] [place] [address] Zoya Clayton MD [facility] [address] [phone] Medication Refill Social History [...] as of this encounter Care Teams Medical Director Of Hospice Relationship Specialty Start Date End Date Ivana Martinez APRN PCP - General Family Medicine 05/13/22 01/27/24 documented as of this encounter
--- OUTSIDE RECORDS SUMMARY | 2025-05-30 13:24 | XMS_ITS | Encounter Summary ---
Author Organization [facility] and [facility] Address [address] [place] [address] Care Team Providers Care Rad Tech Name Role Phone Ivana Martinez HECTOR Primary Care Provider Reason for Visit * Reason Onset Date Comments Medication Refill 02/26/2022 Encounter Details Date Type Department Care Team (Late st Contact Info) Description 02/26/2022 Refill [facility] Internal Medicine [address] [place] [address] Zoya Clayton MD [address] [place] [phone] Medication Refill Social History Tobacco Use [...] documented as of this encounter Care Teams Rad Tech Relationship Specialty Start Date End Date Ivana Martinez APRN PCP - General Family Medicine 05/13/22 01/27/24 documented as of this encounter
--- OUTSIDE RECORDS SUMMARY | 2025-05-30 13:24 | XMS_ITS | Encounter Summary ---
Author Organization [facility] and [facility] Address [address] [place] [address] Care Team Providers Care Solar Sales Associate Name Role Phone Ivana Martinez HECTOR Primary Care Provider Reason for Visit * Reason Onset Date Comments Medication Refill 05/02/2022 Encounter Details Date Type Department Care Team (Late st Contact Info) Description 05/02/2022 Refill [facility] Internal Medicine [address] [place] [address] Zoya Clayton MD [address] [place] [phone] Medication Refill Social History Tobacco Use [...] documented as of this encounter Care Teams Solar Sales Associate Relationship Specialty Start Date End Date Ivana Martinez APRN PCP - General Family Medicine 05/13/22 01/27/24 documented as of this encounter
--- OUTSIDE RECORDS SUMMARY | 2025-05-30 13:24 | XMS_ITS | Encounter Summary ---
Author Organization [facility] and [facility] Address [address] [place] [address] Care Team Providers Care Conservation Technician Name Role Phone Ivana Martinez HECTOR Primary Care Provider Reason for Visit * Reason Onset Date Comments Medication Refill 06/25/2022 Encounter Details Date Type Department Care Team (Late st Contact Info) Description 06/25/2022 Refill [facility] Internal Medicine [address] [place] [address] Zoya Clayton MD [address] [place] [phone] Medication Refill Social History Tobacco Use [...] documented as of this encounter Care Teams Conservation Technician Relationship Specialty Start Date End Date Ivana Martinez APRN PCP - General Family Medicine 05/13/22 01/27/24 documented as of this encounter
--- OUTSIDE RECORDS SUMMARY | 2025-05-30 13:24 | XMS_ITS | Encounter Summary ---
Author Organization [facility] oup and Home Health Address [address] [place] [address] Care Team Providers Care Portfolio Director Name Role Phone Ivana Martinez APRN Primary Care Provider Encounter Details Date Type Department Care Team (Late st Contact Info) Description 09/03/2022 Orders Only [facility] Family Medicine [address] [place], [place] [id number] Ivana Martinez APRN [address] [place] [address] [address] [place] [address] Hypertension, unspecified type; Hypercalcemia; Elevated [...] 136 - 144 mmol/L 09/03/2022 12:57 PM [facility] Potassium 4.0 3.3 - 5.3 mmol/L 09/03/2022 12:57 PM [facility] Chloride 97(L) 98 - 107 mmol/L 09/03/2022 12:57 PM [facility] CO2 29 20 - 30 mmol/L 09/03/2022 12:57 PM [facility] Anion Gap 12 7 - 17 09/03/2022 12:57 PM [facility] Glucose 116(H) 70 - 100 mg/dL 09/03/2022 12:57 PM [facility] BUN 8 6 - 20 mg/dL 09/03/2022 12:57 PM [facility] Creatinine 0.86 0.40 - 1.30 mg/dL 09/03/2022 12:57 PM [facility] Calcium 9.5 8.8 - 10.2 mg/dL 09/03/2022 12:57 PM [facility] BUN/Creatinine Ratio 9.3 8.0 - 23.0 08/06 12:57 PM [facility] Total Protein 7.4 6.6 - 8.7 g/dL 09/03/2022 12:57 PM [facility] Albumin 5.0(H) 3.6 - 4.9 g/dL 09/03/2022 12:57 PM [facility] Total Bilirubin 1.0 <=1.2 mg/dL 09/03/19 12:57 PM [facility] Alkaline Phosphatase 70 9 - 122 U/L 12:57 PM [facility] Alanine Aminotransferase (ALT) 60(H) 9 - 59 U/L 09/03/2022 12:57 PM [facility] Comment:Calcium dobesilate c an cause artificially low ALT results at therapeutic concentrations Aspartate Aminotransferase (AST) 66(H) 10 - 35 U/L 09/03/2022 12:57 PM [facility] Globulin 2.4 2.3 - 3.5 g/dL 09/03/2022 12:57 PM [facility] A/G Ratio 2.1 1.0 - 2.2 09/03/2022 12:57 PM [facility] AST/ALT Ratio 1.1 See Comment 09/03/2022 12:57 PM [facility] Comment: Adult with mild elevations of [...] >60 >=60 mL/min/1.73 m2 09/03/2022 12:57 PM [facility] Comment:Estimated glomerular filtration rate (eGFR) was [...] 09/03/2022 9:58 AM EST us Ivana Martinez HAND RIVETER LAB BLOOD ORDERABLES Fi nal Result [address] [phone] * (ABNORMAL) CBC auto differential (09/03/2022 9:58 AM EST) WBC 6.2 4.0 - 11.0 x1000/ L 09/03/2022 12:01 PM [facility] RBC 5.11 4.00 - 6.00 M/ L 09/03/2022 12:01 PM [facility] Hemoglobin 16.5 13.2 - 17.1 g/dL 09/03/2022 12:01 [facility] Hematocrit 47.30 38.50 - 50.00 % 09/03/2022 12:01 [facility] MCV 92.6 80.0 - 100.0 fL 09/03/2022 12:01 [facility] MCH 32.3 27.0 - 33.0 pg 09/03/2022 12:01 PM [facility] MCHC 34.9 31.0 - 36.0 g/dL 09/03/2022 12:01 [facility] RDW-CV 12.7 11.0 - 15.0 % 09/03/2022 12:01 PM [facility] Platelets 278 150 - 420 x1000/ L 09/03/2022 12:01 PM [facility] MPV 10.2 8.0 - 12.0 fL 09/03/2022 12:01 [facility] Neutrophils 40.9 39.0 - 72.0 % 09/03/2022 12:01 PM [facility] Lymphocytes 39.7 17.0 - 50.0 % 09/03/2022 12:01 [facility] Monocytes 8.8 4.0 - 12.0 % 09/03/2022 12:01 [facility] Eosinophils 9.3(H) 0.0 - 5.0 % 09/03/2022 12:01 [facility] Basophil 1.1 0.0 - 1.4 % 09/03/2022 12:01 [facility] Immature Granulocytes 0.2 0.0 - 1.0 % 09/03/2022 12:01 PM [facility] nRBC 0.0 0.0 - 1.0 % 09/03/2022 12:01 [facility] ANC(Abs Neutrophil Count) 2.55 2.00 - 7.60 x 1000/ L 09/03/2022 12:01 [facility] Absolute Lymphocyte Count 2.48 0.60 - 3.70 x 1000/ L 09/03/2022 12:01 PM [facility] Monocyte Absolute Count 0.55 0.00 - 1.00 x 1000/ L 09/03/2022 12:01 PM [facility] Eosinophil Absolute Count 0.58 0.00 - 1.00 x 1000/ L 09/03/2022 12:01 PM [facility] Basophil Absolute Count 0.07 0.00 - 1.00 x 1000/ L 09/03/2022 12:01 PM [facility] Absolute Immature Granulocyte Count 0.01 0.00 - 0.30 x 1000/ L 09/03/2022 12:01 PM [facility] Absolute nRBC 0.00 0.00 - 1.00 x 1000/ L 09/03/2022 12:01 PM [facility] Blood Venipuncture / Unknown 09/03/2022 9:58 AM EST 09/03/2022 9:58 AM EST Ivana Petastonle HAND RIVETER LAB BLOOD ORDERABLES Fi nal Result Performing Organization Address [facility]/ZIP Co de Phone Number [address] [phone] * Treponema pallidum (syphilis) antibody w/reflex (09/03/2022 9:58 AM EST) Treponema pallidum Ab Index <0.100 <0.9 Index 09/03/2022 1:38 PM [facility] Treponema pallidum Antibody Total, Serum Non-Reacti ve Non-Reacti ve 09/03/2022 1:38 PM [facility] Blood Venipuncture / Unknown 09/03/2022 9:58 AM EST 09/03/2022 9:58 AM EST us Ivana Petastonle HAND RIVETER LAB BLOOD ORDERABLES Fi nal Result Performing Organization Address [facility]/ZIP Co de Phone Number [address] [phone] * (ABNORMAL) Gamma GT (09/03/2022 9:58 AM EST) GGT 133(H) <48 U/L 09/03/2022 12:57 PM [facility] Blood Venipuncture / Unknown 09/03/2022 9:58 AM EST 09/03/2022 9:58 AM EST Ivana Petastonle HAND RIVETER LAB BLOOD ORDERABLES Fi nal Result Performing Organization Address [facility] Phone Number [address] [phone] * (ABNORMAL) Vitamin D, 25-hydroxy (09/03/2022 9:58 AM EST) Vitamin [id number] 12.1(L) 30.0 - 100.0 ng/mL 09/03/2022 1:55 PM [facility] Comment: Vitamin D Status: Results in ng/mL <10.0: Deficient 10.0 - 29.9: Insufficient 30.0 - 100.0: Sufficient >100: Toxic Reference ranges established by [employer]. Blood Venipuncture / Unknown 09/03/2022 9:58 AM EST 09/03/2022 9:58 AM EST Ivanabhavin Lesliele HAND RIVETER LAB BLOOD ORDERABLES Fi nal Result Performing Organization Address [facility] Phone Number [address] [phone] * (ABNORMAL) Lipid panel (09/03/2022 9:58 AM EST) Cholesterol 201(H) See Comment mg/dL 09/03/2022 12:57 PM [facility] Comment: Total Cholesterol (mg/dL) Adults (>18 years) Children (<18 years) Desirable <200 <170 Borderline-High 200-239 170-199 High >=240 >=200 HDL 76 >=40 mg/dL 09/03/2022 12:57 PM [facility] Triglycerides 157(H) See Comment mg/dL 09/03/2022 12:57 PM [facility] Comment: Triglycerides (mg/dL) Adults (>18 years) Children (<18 years) Desirable <150 Not Established Borderline-High 150-199 Not Established High 200-499 Not Established Chol/HDL Ratio 2.6 0.0 - 5.0 09/03/2022 12:57 PM [facility] LDL Calculated 98 See Comment mg/dL 09/03/2022 12:57 PM [facility] Comment: Effective 01/09/2022, LDL is calculated [...] APRN LAB BLOOD ORDERABLES Fi nal Result [address] [phone] * (ABNORMAL) Hemoglobin A1c (09/03/2022 9:58 AM EST) Hemoglobin A1c 5.7(H) 4.0 - 5.6 % 09/03/2022 12:34 PM [facility] Comment: Hemoglobin A1c values of 5.7-6.4 [...] Glucose mg/dL 117 mg/dL 09/03/2022 12:34 PM [facility] Comment: Estimated average glucose (eAG) is [...] APRN LAB BLOOD ORDERABLES Fi nal Result [address] [phone] * TSH w/reflex to FT4 (BH GH LMW Q YH) (09/03/2022 9:58 AM EST) Thyroid Stimulating Hormone 3.940 See Comment IU/mL 09/03/2022 12:57 PM [facility] Comment: Male & Non- Females: 0.270-4.200 IU/mL 1st Trimester: 0.110-3.480 IU/mL 2nd Trimester: 0.320-3.850 IU/mL Blood Venipuncture / Unknown 09/03/2022 9:58 AM EST 09/03/2022 9:58 AM EST Ivana Martinez APRN LAB BLOOD ORDERABLES Fi nal Result Performing Organization Address [facility]/State/[facility] Co de Phone Number [address] [phone] documented in this encounter Visit Diagnoses Diagnosis Hypertension, unspecified type Hypercalcemia Elevated LFTs Other abnormal blood chemistry Dysuria documented in this encounter Additional Health Concerns Assessment Noted Time PHQ-9 Depression Total Score: 1 09/02/19 23 1:40 PM EST documented as of this encounter Care Teams Portfolio Director Relationship Specialty Start Date End Date Ivana Martinez APRN PCP - General Family Medicine 05/13/22 01/27/24 documented as of this encounter
--- OUTSIDE RECORDS SUMMARY | 2025-05-30 13:24 | XMS_ITS | Encounter Summary ---
Author Organization [facility] Address [address] [place] [address] Care Team Providers Care Wrecking Mechanic Name Role Phone Ivana Martinez APRN Primary Care Provider Encounter Details Date Type Department Care Team (Late st Contact Info) Description 09/03/2022 Transcribed Orders [place] [facility] [address] [place], [place] [address] Ivana Martinez APRN [address] [facility] [address] [place] [address] Dysuria (Primary Dx) Social History [...] Priority Date/Time Associated Diagnosis Comments URINE MICROSCOPIC ([facility] LMW YH) Routine 09/03/2022 10:54 AM EST Dysuria URINALYSIS-MACROSCOP IC W/REFLEX MICROSCOPIC Routine 09/03/2022 10:54 AM EST Dysuria C. TRACHOMATIS / N. GONORRHOEAE, NAAT ( GH L LMW YH) Routine 09/03/2022 10:54 AM EST Dysuria NEISSERIA GONORRHEA, NAAT (LAB ORDER ONLY) ([facility] L LMW YH) Routine 09/03/2022 10:54 AM EST Dysuria CHLAMYDIA TRACHOMATIS, NAAT (LAB ORDER ONLY) ([facility] L LMW YH) Routine 09/03/2022 10:54 AM EST Dysuria URINE CULTURE Routine 09/03/2022 10:54 AM EST Dysuria documented in this encounter Results * (ABNORMAL) Urine microscopic ([facility] LMW YH) (09/03/2022 10:54 AM EST) RBC/HPF, UA 6(H) 0 - 2 /HPF 09/03/2022 12:05 PM [facility] WBC/HPF, UA 1 0 - 5 /HPF 09/03/2022 12:05 PM [facility] Bacteria, UA Rare None-Rare /HPF 09/03/2022 12:05 PM [facility] Hyaline Casts, UA 1 0 - 3 /LPF 09/03/2022 12:05 PM [facility] Urine Collection / Unknown 09/03/2022 10:54 AM EST 09/03/2022 10:54 AM EST us Ivana Martinez ELECTRICAL INTEGRATOR URINE ORDERABLES Final Result [address] [phone] * Chlamydia trachomatis, NAAT ( GH LMW YH) (09/03/2022 10:54 AM EST) Chlamydia DNA Probe Negative Negative 09/04/2022 11:43 AM [facility] Comment:The Aptima Combo2 As say is not intended for the evaluation of suspected sexual abuse or for other medico-legal indications. Specimen Source Urine (Dirty Catch) for DNA Probe 09/04/2022 11:43 AM [facility] Culture URINE SPECIMEN / Unknown Collection / Unknown 09/03/2022 10:54 AM EST 09/03/2022 10:54 AM EST Ivana Martinez APRN MICROBIOLOGY - GENERAL ORDERABLES Final Result Performing Organization Address [facility]/ZIP Co de Phone Number [address] [phone] * Neisseria gonorrhoeae, NAAT ( GH L LMW YH) (09/03/2022 10:54 AM EST) Neisseria gonorrhoeae, DNA Probe Negative Negative 09/04/2022 11:43 AM [facility] Comment:The Aptima Combo2 As say is not intended for the evaluation of suspected sexual abuse or for other medico-legal indications. Specimen Source Urine (Dirty Catch) for DNA Probe 09/04/2022 11:43 AM [facility] Culture URINE SPECIMEN / Unknown Collection / Unknown 09/03/2022 10:54 AM EST 09/03/2022 10:54 AM EST Ivana Martinez APRN MICROBIOLOGY - GENERAL ORDERABLES Final Result Performing Organization Address [facility]/ZIP Co de Phone Number [address] [phone] * (ABNORMAL) Urinalysis-macroscopic w/reflex microscopic (09/03/2022 10:54 AM EST) Clarity, UA Clear Clear 09/03/2022 11:59 AM [facility] Color, UA Yellow Yellow, Colorless 09/03/2022 11:59 AM [facility] Specific [place], UA 1.015 1.005 - 1.030 09/03/2022 11:59 AM [facility] pH, UA 6.5 5.5 - 7.5 09/03/2022 11:59 AM [facility] Protein, UA Negative Negative, Trace 09/03/2022 11:59 AM [facility] Glucose, UA Negative Negative 09/03/2022 11:59 AM [facility] Ketones, UA Negative Negative 09/03/2022 11:59 AM [facility] Blood, UA 2+(A) Negative 09/03/2022 11:59 AM [facility] Bilirubin, UA Negative Negative 09/03/2022 11:59 AM [facility] Leukocytes, UA Negative Negative 09/03/2022 11:59 AM [facility] Nitrite, UA Negative Negative 09/03/2022 11:59 AM [facility] Urobilinogen, UA <2.0 <=2.0 mg/dL 09/03/2022 11:59 AM [facility] Urine Collection / Unknown 09/03/2022 10:54 AM EST 09/03/2022 10:54 AM EST Ivana Martinez ELECTRICAL INTEGRATOR URINE ORDERABLES Final Result Performing Organization Address City/[facility]/ZIP Co de Phone Number [address] [phone] * Urine culture (09/03/2022 10:54 AM EST) Urine Culture, Routine No Growth 09/04/2022 1:27 PM [facility] Culture URINE SPECIMEN OBTAINED BY CLEAN CATCH PROCEDURE / Unknown Collection / Unknown 09/03/2022 10:54 AM EST 09/03/2022 10:54 AM EST Ivana Martinez APRN MICROBIOLOGY - GENERAL ORDERABLES Final Result Performing Organization Address [facility]/ZIP Co de Phone Number [address] [phone] documented in this encounter Visit Diagnoses Diagnosis Dysuria- Primary documented in this encounter Additional Health Concerns Assessment Noted Time PHQ-9 Depression Total Score: 1 09/02/19 23 1:40 PM EST documented as of this encounter Care Teams Wrecking Mechanic Relationship Specialty Start Date End Date Ivana Martinez APRN PCP - General Family Medicine 05/13/22 01/27/24 documented as of this encounter
--- OUTSIDE RECORDS SUMMARY | 2025-05-30 13:24 | XMS_ITS | Encounter Summary ---
Author Organization [facility] oup and Home Health Address [address] [place] [address] Care Team Providers Care Workforce Staffing Advisor Name Role Phone Ivana Martinez HECTOR Primary Care Provider Reason for Visit * Reason Onset Date Comments Medication Refill 05/30/2022 Encounter Details Date Type Department Care Team (Late st Contact Info) Description 05/30/2022 Refill [facility] Internal Medicine [address] [place] [address] Zoya [place] MD [address] [place] [phone] Medication Refill Social History Tobacco Use [...] documented as of this encounter Care Teams Workforce Staffing Advisor Relationship Specialty Start Date End Date Ivana Martinez APRN PCP - General Family Medicine 05/13/22 01/27/24 documented as of this encounter
--- OUTSIDE RECORDS SUMMARY | 2025-05-30 13:24 | XMS_ITS | Encounter Summary ---
Author Organization [facility] ou and [facility] Address [address] [place] [address] Care Team Providers Care Foundation Engineer Name Role Phone Ivana Martinez HECTOR Primary Care Provider Reason for Visit * Reason Comments Medication Refill Encounter Details Date Type Department Care Team (Late Contact Info) Description 12/30/2021 Refill [facility] [address] [facility] [address] [place], [place] [address] Matthew Huynh MD [address] [place] [address] Medication Refill Social History Tobacco [...] documented as of this encounter Care Teams Foundation Engineer Relationship Specialty Start Date End Date Ivana Martinez APRN PCP - General Family Medicine 05/13/22 01/27/24 documented as of this encounter
--- OUTSIDE RECORDS SUMMARY | 2025-05-30 13:24 | XMS_ITS | Encounter Summary ---
Author Organization [facility] Address [address] [place] [address] Care Team Providers Care Human Resources Associate Name Role Phone Physician, Pcp Unknown Primary Care Provider Ale vailable Encounter Details Date Type Department Care Team (Late st Contact Info) Description 02/22/2025 Lab Requisition [facility] [address] [place] [address] Selena Ramos MD [address] [place] [address] [place] [address] Tinea corporis Social History Tobacco Use Types [...] after 4 Weeks 03/24/2025 10:59 AM EDT [facility] Skin 02/22/2025 02/22/2025 6:5 8 PM EDT Selena Ramos MD LAB MICROBIOLOGY - GENERAL [place] Final Result [facility] [address] [place], [place] [address] [phone] documented in this encounter Visit Diagnoses Diagnosis Tinea corporis Dermatophytosis of the body documented in this encounter Care Teams Human Resources Associate Relationship Specialty Start Date End Date Physician, Pcp Unknown PCP - General 02/22/25 documented as of this encounter
--- OUTSIDE RECORDS SUMMARY | 2025-05-30 13:24 | XMS_ITS | Encounter Summary ---
Author Organization [facility] Address [address] [place] [address] Care Team Providers Care Police Commanding Officer Name Role Phone Ivana Martinez APRN Primary Care Provider Encounter Details Date Type Department Care Team (Late st Contact Info) Description 05/13/2022 Transcribed Orders [place] [facility] - [address] [place], [place] [address] Ivana Martinez APRN [address] [facility] [address] [place] [address] Hypocalcemia (Primary Dx); Hypertension, unspecified [...] See Comment ng/dL 05/13/2022 2:16 PM EDT [facility] Comment: For patients taking levothyroxine, the [...] AM EDT 05/13/2022 10:46 AM EDT Ivana 8aweeklilibeth TEST CENTER MANAGER LAB BLOOD ORDERABLES Fi nal Result Performing Organization Address City/[facility] Co de Phone Number [address] [phone] * PTH, intact without calcium (05/13/2022 10:46 AM EDT) Parathyroid Hormone, Intact 35.0 15.0 - 65.0 pg/mL 05/13/2022 12:49 PM EDT [facility] Blood Venipuncture / Unknown 05/13/2022 10:46 AM EDT 05/13/2022 10:46 AM EDT Ivanabhavin Martinez TEST CENTER MANAGER LAB BLOOD ORDERABLES Fi nal Result [facility] [address] [place] [address], [facility] [phone] * (ABNORMAL) Comprehensive metabolic panel (05/13/2022 10:46 AM EDT) Sodium 138 136 - 144 mmol/L 05/13/2022 1:[address] [facility] Potassium 3.8 3.3 - 5.3 mmol/L 05/13/2022 1:07 PM [facility] Chloride 98 98 - 107 mmol/L 05/13/2022 1:07 PM [facility] CO2 28 20 - 30 mmol/L 05/13/2022 1:07 PM [facility] Anion Gap 12 7 - 17 05/13/2022 1:07 PM [facility] Glucose 105(H) 70 - 100 mg/dL 05/13/2022 1:07 PM [facility] BUN 6 6 - 20 mg/dL 05/13/2022 1:07 PM [facility] Creatinine 0.78 0.40 - 1.30 mg/dL 05/13/2022 1:07 PM [facility] Calcium 9.6 8.8 - 10.2 mg/dL 05/13/2022 1:07 PM [facility] BUN/Creatinine Ratio 7.7(L) 8.0 - 23.0 05/04 1:07 PM [facility] Total Protein 7.5 6.6 - 8.7 g/dL 05/13/2022 1:07 PM [facility] Albumin 5.2(H) 3.6 - 4.9 g/dL 05/13/2022 1:07 PM [facility] Total Bilirubin 0.5 <=1.2 mg/dL 05/13/20 1:07 PM [facility] Alkaline Phosphatase 81 9 - 122 U/L 05/2022 1:07 PM [facility] Alanine Aminotransferase (ALT) 45 9 - 59 U/L 05/13/2022 1:07 PM [facility] Comment:Calcium dobesilate c an cause artificially low ALT results at therapeutic concentrations Aspartate Aminotransferase (AST) 48(H) 10 - 35 U/L 05/13/2022 1:07 PM EDT [facility] Globulin 2.3 2.3 - 3.5 g/dL 05/13/2022 1:07 PM [facility] A/G Ratio 2.3(H) 1.0 - 2.2 05/13/2022 1:07 PM [facility] AST/ALT Ratio 1.1 See Comment 05/13/2022 1:07 PM [facility] Comment: Adult with mild elevations of transaminases (< 5 times upper limit of normal): AST/ALT > 2 suggests alcoholic liver injury AST/ALT < 1 suggests non-alcoholic fatty liver disease (NAFLD) [place] (healthy): AST/ALT can be > 3 on day 0 AST/ALT < 2 by day 5 The thresholds provided focus on the most common etiologies of elevated serum transaminase levels and the associated alteration of AST:ALT ratios; they are not intended to exclude other feasible and clinically appropriate possibilities eGFR (Creatinine) >60 >=60 mL/min/1.73 m2 05/13/2022 1:07 PM [facility] Comment:Estimated glomerular filtration rate (eGFR) was [...] APRN LAB BLOOD ORDERABLES Fi nal Result [address] [phone] * (ABNORMAL) CBC auto differential (05/13/2022 10:46 AM EDT) WBC 5.5 4.0 - 11.0 x1000/ L 05/13/2022 12:09 PM T [facility] RBC 5.19 4.00 - 6.00 M/ L 05/13/2022 12:09 PM [facility] Hemoglobin 16.6 13.2 - 17.1 g/dL 05/13/2022 12:09 PM [facility] Hematocrit 45.70 38.50 - 50.00 % 05/13/2022 12:09 PM [facility] MCV 88.1 80.0 - 100.0 fL 05/13/2022 12:09 PM [facility] MCH 32.0 27.0 - 33.0 pg 05/13/2022 12:09 PM [facility] MCHC 36.3(H) 31.0 - 36.0 g/dL 05/13/2022 12:09 PM [facility] RDW-CV 12.7 11.0 - 15.0 % 05/13/2022 12:09 PM [facility] Platelets 323 150 - 420 x1000/ L 05/13/2022 12:09 PM [facility] MPV 9.5 8.0 - 12.0 fL 05/13/2022 12:09 PM [facility] Neutrophils 36.5(L) 39.0 - 72.0 % 05/13/2022 12:09 PM [facility] Lymphocytes 42.0 17.0 - 50.0 % 05/13/2022 12:09 PM [facility] Monocytes 9.2 4.0 - 12.0 % 05/13/2022 12:09 PM [facility] Eosinophils 11.2(H) 0.0 - 5.0 % 05/13/2022 12:09 PM [facility] Basophil 1.1 0.0 - 1.4 % 05/13/2022 12:09 PM [facility] Immature Granulocytes 0.0 0.0 - 1.0 % 05/13/2022 12:09 PM [facility] nRBC 0.0 0.0 - 1.0 % 05/13/2022 12:09 PM [facility] ANC(Abs Neutrophil Count) 1.99(L) 2.00 - 7.60 x 1000/ L 05/13/2022 12:09 PM [facility] Absolute Lymphocyte Count 2.29 0.60 - 3.70 x 1000/ L 05/13/2022 12:09 PM [facility] Monocyte Absolute Count 0.50 0.00 - 1.00 x 1000/ L 05/13/2022 12:09 PM EDT [facility] Eosinophil Absolute Count 0.61 0.00 - 1.00 x 1000/ L 05/13/2022 12:09 PM EDT [facility] Basophil Absolute Count 0.06 0.00 - 1.00 x 1000/ L 05/13/2022 12:09 PM EDT [facility] Absolute Immature Granulocyte Count 0.00 0.00 - 0.30 x 1000/ L 05/13/2022 12:09 PM EDT [facility] Absolute nRBC 0.00 0.00 - 1.00 x 1000/ L 05/13/2022 12:09 PM EDT [facility] Blood Venipuncture / Unknown 05/13/2022 10:46 AM EDT 05/13/2022 10:46 AM EDT [facility] TEST CENTER MANAGER LAB BLOOD ORDERABLES Fi nal Result [address] [phone] * (ABNORMAL) Thyroid antibody panel ( GH) (05/13/2022 10:46 AM EDT) Thyroid Peroxidase Ab 163(H) 0 - 99 IU/mL 05/15/2022 1:01 PM EDT [facility] Thyroglobulin Ab <10.0 0 - 125 IU/mL 05/15/2022 1:01 PM EDT [facility] Blood Venipuncture / Unknown 05/13/2022 10:46 AM EDT 05/13/2022 10:46 AM EDT Ivana PetInnaVirVaxle TEST CENTER MANAGER LAB BLOOD ORDERABLES Fi [place]al [place] [address], [facility] [phone] * (ABNORMAL) THYROID PEROXIDASE ANTIBODY (05/13/2022 10:46 AM EDT) Thyroid Peroxidase Ab 163(H) 0 - 99 IU/mL 05/15/2022 1:01 PM EDT [facility] Blood Venipuncture / Unknown 05/13/2022 10:46 AM EDT 05/13/2022 10:46 AM EDT [facility] BLOOD ORDERABLES Fi nal Result Performing Organization Address [facility] de Phone Number [address] [phone] * TESTOSTERONE, TOTAL (BH GH L LMW YH) (05/13/2022 10:46 AM EDT) Testosterone, Total 302 229 - 902 ng/dL 05/13/2022 1:18 PM EDT [facility] Comment: The following testosterone reference ranges [...] [place]. J Clin Endocrinol Metab. 2017 Apr 1;102(4):7451-3573. Blood Venipuncture / Unknown 05/13/2022 10:46 AM EDT 05/13/2022 10:46 AM EDT Ivana Martinez APRN LAB BLOOD ORDERABLES Fi nal Result Performing Organization Address [facility]/ZIP Co de Phone Number [address] [phone] * (ABNORMAL) Gamma GT (05/13/2022 10:46 AM EDT) GGT 92(H) <48 U/L 05/13/2022 12:53 PM EDT [facility] Blood Venipuncture / Unknown 05/13/2022 10:46 AM EDT 05/13/2022 10:46 AM EDT [facility] MANAGER LAB BLOOD ORDERABLES Fi nal Result Performing Organization Address [facility] de Phone Number [address] [phone] * (ABNORMAL) Vitamin D, 25-hydroxy (05/13/2022 10:46 AM EDT) Vitamin O30-Uznqala 16.9(L) 30.0 - 100.0 ng/mL 05/13/2022 1:47 PM EDT [facility] Comment: Vitamin D Status: Results in ng/mL <10.0: Deficient 10.0 - 29.9: Insufficient 30.0 - 100.0: Sufficient >100: Toxic Reference ranges established by [employer]. Blood Venipuncture / Unknown 05/13/2022 10:46 AM EDT 05/13/2022 10:46 AM EDT Ivana Martinez TEST CENTER MANAGER LAB BLOOD ORDERABLES Fi nal Result Performing Organization Address [facility] de Phone Number [address] [phone] * Hepatitis C Ab with reflex to HCV PCR (05/13/2022 10:46 AM EDT) Hepatitis C Ab Initial Result 0.03 S/CO 05/13/2022 1:44 PM EDT [facility] Hepatitis C Ab Interpretation Non-React lilo Non-React lilo 05/13/2022 1:44 PM EDT [facility] Blood Venipuncture / Unknown 05/13/2022 10:46 AM EDT 05/13/2022 10:46 AM EDT Ivana Martinez APRN LAB BLOOD ORDERABLES Fi nal Result [facility] [address] [place] [address], [facility] [phone] * (ABNORMAL) Lipid panel (05/13/2022 10:46 AM EDT) Cholesterol 185 See Comment mg/dL 05/13/2022 1:07 PM [facility] Comment: Total Cholesterol (mg/dL) Adults (>18 years) Children (<18 years) Desirable <200 <170 Borderline-High 200-239 170-199 High >=240 >=200 HDL 63 >=40 mg/dL 05/13/2022 1:07 PM [facility] Triglycerides 268(H) See Comment mg/dL 05/13/2022 1:07 PM [facility] Comment: Triglycerides (mg/dL) Adults (>18 years) Children (<18 years) Desirable <150 Not Established Borderline-High 150-199 Not Established High 200-499 Not Established Chol/HDL Ratio 2.9 0.0 - 5.0 05/13/2022 1:07 PM [facility] LDL Calculated 79 See Comment mg/dL 05/13/2022 1:07 PM [facility] Comment: Effective 01/09/2022, LDL is calculated using the El-KRISTIN equation, which is more accurate than the Friedewald and Gato-Sanchez equations. LDL Cholesterol (mg/dL) Adults (>18 years) Children (<18 years) Desirable <100 <110 Above Desirable 100-129 Not Established Borderline-High 130-159 110-129 High 160-189 >=130 Very High >=190 Not Established Blood Venipuncture / Unknown 05/13/2022 10:46 AM EDT 05/13/2022 10:46 AM EDT [facility] LAB BLOOD ORDERABLES Fi nal Result Performing Organization Address City/[facility]/ZIP Co de Phone Number [address] [phone] * (ABNORMAL) Vitamin B12 (05/13/2022 10:46 AM EDT) Vitamin B12 168(L) 232 - 1,245 pg/mL 05/13/2022 1:40 PM EDT [facility] Blood Venipuncture / Unknown 05/13/2022 10:46 AM EDT 05/13/2022 10:46 AM EDT [facility] LAB BLOOD ORDERABLES Fi nal Result Performing Organization Address [facility]/ZIP Co de Phone Number [address] [phone] * (ABNORMAL) Hemoglobin A1c (05/13/2022 10:46 AM EDT) Hemoglobin A1c 5.7(H) 4.0 - 5.6 % 05/13/2022 1:42 PM T [facility] Comment: Hemoglobin A1c values of 5.7-6.4 [...] mg/dL 117 mg/dL 05/13/2022 1:42 PM EDT [facility] Comment: Estimated average glucose (eAG) is a calculated value designed to estimate the expected average blood glucose level throughout the day from a single measurement of glycated hemoglobin A1C (HbA1c) and follows the calculation proposed by the [place] [employer] (Diabetes Care 31: 1-6, 2008). It may have less accuracy in children, women and patients with certain erythrocyte disorders. Blood Venipuncture / Unknown 05/13/2022 10:46 AM EDT 05/13/2022 10:46 AM EDT Ivana Martinez APRN LAB BLOOD ORDERABLES Fi nal Result Performing Organization Address [facility]/ZIP Co de Phone Number [address] [phone] * (ABNORMAL) TSH w/reflex to FT4 (BH GH LMW Q YH) (05/13/2022 10:46 AM EDT) Thyroid Stimulating Hormone 4.470(H) See Comment IU/mL 05/13/2022 1:07 PM EDT [facility] Comment: Male & Non- Females: 0.270-4.200 IU/mL 1st Trimester: 0.110-3.480 IU/mL 2nd Trimester: 0.320-3.850 IU/mL Blood Venipuncture / Unknown 05/13/2022 10:46 AM EDT 05/13/2022 10:46 AM EDT Ivanaaldo Martinez TEST CENTER MANAGER LAB BLOOD ORDERABLES Fi nal Result [place] [id number], [facility] [phone] documented in this encounter Visit Diagnoses Diagnosis [...] documented as of this encounter Care Teams Police Commanding Officer Relationship Specialty Start Date End Date Ivana Martinez APRN PCP - General Family Medicine 05/13/22 01/27/24 documented as of this encounter
--- OUTSIDE RECORDS SUMMARY | 2025-05-30 13:24 | XMS_ITS | Patient Health Record ---
Author Organization [facility] [place], Address [address] [place] [address] Reason For Referral No Information Plan Of Treatment No Information Insurance Providers Payer Name Payer Address Payer Phone Subscriber Number Group Number Insured Name Patient Relationship to Insured Coverage Start Date Coverage End Date Medicaid of [place] [address] [place] [address] [id number] Jay major Self - patient is the insured
--- OUTSIDE RECORDS SUMMARY | 2025-05-30 13:24 | XMS_ITS | Encounter Summary ---
Author Organization [facility] Address [address] [place] [address] Care Team Providers Care Computer Art Instructor Name Role Phone Ivana Martinez HECTOR Primary Care Provider Reason for Visit * Reason Onset Date Comments Medication Refill 08/28/2022 Encounter Details Date Type Department Care Team (Late st Contact Info) Description 08/28/[address] [facility] Internal Medicine [address] [place] [address] Zoya Clayton MD [address] [place] [phone] Medication Refill Social History Tobacco Use [...] as of this encounter Care Teams Computer Art Instructor Relationship Specialty Start Date End Date Ivana Martinez APRN PCP - General Family Medicine 05/13/22 01/27/24 documented as of this encounter
--- OUTSIDE RECORDS SUMMARY | 2025-05-30 13:24 | XMS_ITS | Encounter Summary ---
Author Organization [facility] Address [address] [place] [address] Care Team Providers Care Coverstitch Machine Operator Name Role Phone Pcp, No Primary Care Provider Unavailabl e Encounter Details Date Type Department Care Team (Late st Contact Info) Description 10/12/2022 Scanned Document Advanced Radiology [address] [phone] Matthew Rodney MD [address] [place] [phone] Social History Tobacco Use Types Packs/Day [...] on filedocumented in this encounter Care Teams Coverstitch Machine Operator Relationship Specialty Start Date End Date Pcp, No PCP - General 10/21/22 documented as of this encounter
--- OUTSIDE RECORDS SUMMARY | 2025-05-30 13:24 | XMS_ITS | Encounter Summary ---
Author Organization [facility] Home [facility] Address [address] [place] [address] Care Team Providers Care Home Health Clinical Supervisor Name Role Phone Ivana Martinez HECTOR Primary Care Provider Reason for Visit * Reason Comments Medication Refill Encounter Details Date Type Department Care Team (Late st Contact Info) Description 04/01/2022 Refill [facility] Internal Medicine [address] [place] [address] Zoya Clayton MD [facility] [address] [phone] Medication Refill Social History Tobacco [...] Sonya Savannah - 04/01/2022 12:36 PM EDT LUI SFELIPE 09/10/2021 NOV 05/13/22 w/ SP Forrest pt. documented in this encounter Plan of Treatment Not on file documented as of this encounter Visit Diagnoses Not on filedocumented in this encounter Additional Health Concerns Assessment Noted Time PHQ-9 Depression Total Score: 2 09/10/19 10:11 AM EST documented as of this encounter Care Teams Home Health Clinical Supervisor Relationship Specialty Start Date End Date Ivana Martinez APRN PCP - General Family Medicine 05/13/22 01/27/24 documented as of this encounter
--- OUTSIDE RECORDS SUMMARY | 2025-05-30 13:24 | XMS_ITS | Encounter Summary ---
Author Organization [facility] Address [address] [place] [address] Care Team Providers Care Printer Apprentice Name Role Phone Andrew Martinezaldo YOUNG Primary Care Provider Reason for Visit * Reason Comments Medication Refill Encounter Details Date Type Department Care Team (Late st Contact Info) Description 06/30/2022 Refill [facility] Internal Medicine [address] [place] [address] Souleymane Wilson DO [address] [place] [phone] Medication Refill Social History Tobacco Use Types [...] documented as of this encounter Care Teams Printer Apprentice Relationship Specialty Start Date End Date Ivana Martinez APRN PCP - General Family Medicine 05/13/22 01/27/24 documented as of this encounter
--- OUTSIDE RECORDS SUMMARY | 2025-05-30 13:25 | XMS_ITS | Encounter Summary ---
Author Organization [facility] Address [address] [place] [address] Care Team Providers Care Plaster Mechanic Name Role Phone Ivana Martinez HECTOR Primary Care Provider Reason for Visit * Reason Onset Date Comments Medication Refill 12/31/2022 Encounter Details Date Type Department Care Team (Late st Contact Info) Description 12/31/2022 Refill [facility] Internal Medicine [address] [place] [address] Zoya Clayton MD [address] [place] [phone] Medication Refill Social History Tobacco Use [...] documented as of this encounter Care Teams Plaster Mechanic Relationship Specialty Start Date End Date Ivana Martinez APRN PCP - General Family Medicine 05/13/22 01/27/24 documented as of this encounter
--- OUTSIDE RECORDS SUMMARY | 2025-05-30 13:25 | XMS_ITS | Encounter Summary ---
Author Organization [facility] and Home Health Address [address] [place] [address] Care Team Providers Care Electronic Data Interchange Specialist Name Role Phone Ivana Martinez APRN Primary Care Provider Reason for Visit * Reason Onset Date Comments Medication Refill 10/20/2022 Encounter Details Date Type Department Care Team (Late st Contact Info) Description 10/20/2022 Refill [facility] [address] [address] [place] [address] Ivana Martinez APRN [address] [place] [phone] Medication Refill Social History Tobacco Use [...] documented as of this encounter Care Teams Electronic Data Interchange Specialist Relationship Specialty Start Date End Date Ivana Martinez APRN PCP - General Family Medicine 05/13/22 01/27/24 documented as of this encounter
--- OUTSIDE RECORDS SUMMARY | 2025-05-30 13:25 | XMS_ITS | Encounter Summary ---
Author Organization [facility] Address [address] [place] [address] Care Team Providers Care Knot Picker Cloth Name Role Phone Ivana Martinez MIS DIRECTOR Primary Care Provider Reason for Visit * Reason Onset Date Comments Medication Refill 12/17/2022 Encounter Details Date Type Department Care Team (Late st Contact Info) Description 12/17/2022 Refill [facility] Dermatology at [address] [place], [place] [address] Noel Brandon MD [address] [place] [phone] Medication Refill Social History Tobacco Use Types [...] documented as of this encounter Care Teams Knot Picker Cloth Relationship Specialty Start Date End Date Ivana Martinez APRN PCP - General Family Medicine 05/13/22 01/27/24 documented as of this encounter
== END 2025-05-30 12:04 | disposition home or self-care (01) ==
LOC: HO.HID 10:49
PROVIDERS: PCP Internal Medicine; Visit Provider Internal Medicine
DX: R21 Rash and other nonspecific skin eruption (principal)
CPT/HCPCS: 99203

== ENCOUNTER → 2025-05-30 10:49 | Outpatient (BNVA) | payer OTHER, SELFPAY | PROVIDERS: PCP Internal Medicine; Visit Provider Internal Medicine | DX: R21 Rash and other nonspecific skin eruption (principal) | CPT/HCPCS: 99202 ==

== ENCOUNTER → 2025-06-09 09:38 | Outpatient (REF) | payer OTHER, SELFPAY ==
--- OUTSIDE RECORDS SUMMARY | 2022-10-21 13:14 | XMS_ITS | Encounter Summary ---
Author Organization [facility] Address [address] [place] [address] Care Team Providers Care Agile Scrum Master Name Role Phone Pcp, No Primary Care Provider Unavailabl e Reason for Referral * Diagnostic Imaging (Routine) - Closed Specialty Diagnoses / Procedures Referred By Christian chatman Referred To Contact Diagnoses Microhematuria Procedures CT Urogram w w/o contrast w/3D Matthew Rodney MD [address] [place] [address] Phone: tel: fax: Referral ID Status Reason Start Date Expiration Date Visits Re quested Visits Authorized [id number] Closed 10/08/2022 12/11/2022 1 1 Reason for Visit * Diagnostic Imaging (Routine) - Closed Specialty Diagnoses / Procedures Referred By Christian chatman Referred To Contact Diagnoses Microhematuria Procedures CT Urogram w w/o contrast w/3D Matthew Rodney MD [address] [place] [address] Phone: tel: fax: Referral ID Status Reason Start Date Expiration Date Visits Re quested Visits Authorized [id number] Closed 10/08/2022 12/11/2022 1 1 Encounter Details Date Type Department Care Team (Late st Contact Info) Description 10/21/2022 2:14 PM EDT Hospital Encounter [facility] [address] [place] [phone] Microhematuria Social History Tobacco Use Types Packs/Day Years Used Date Smoking Tobacco: Never Assessed Sex and Gender Information Value Date Recorded Sex Assigned at Not on file Legal Sex Male 7:53 PM EST Gender Identity Not on file Sexual Orientation Not on file COVID-19 Exposure Response Date Recorded In the last 10 days, have yo u been in contact with someone who was confirmed or suspected to have Coronavirus/COVID-19? No / Unsure 10/21/2022 2:12 PM EDT documented as of this encounter Plan of Treatment Not on file documented as of this encounter Procedures Procedure Name Priority Date/Time Associated Diagnosis Comments CT UROGRAM W W/O CONTRAST W/3D Routine 10/21/2022 2:46 PM EDT Microhematuria documented in this encounter Results * CT Urogram w w/o contrast w/3D (10/21/2022 2:46 PM EDT) Anatomical Region Laterality Modality Abdomen, Pelvis Computed Tomogra phy 10/21/2022 3:48 PM EDT Impressions 10/21/2022 4:[address] urogram. No renal mass, nephroureterolithiasis, or suspicious abnormality in the opacified portions of the collecting systems or ureters. 3-D rendering CT imaging was performed as part of this exam and fully reviewed. These images confirm the findings seen on the standard CT sequences. Narrative 10/21/2022 4:07 PM EDT CLINICAL INFORMATION: Microscopic hematuria COMPARISON: None. TECHNIQUE: CT Abdomen and Pelvis with and w/o contrast. IV Contrast: 75 cc Omnipaque 350. Protocol: Hematuria. Oral Contrast: Not given. Iterative reconstruction was utilized to minimize dose. FINDINGS: Lower Chest: Unremarkable. Liver: Focal fatty infiltration adjacent to the falciform ligament otherwise unremarkable. Gallbladder/Biliary: Unremarkable. No biliary dilation. Spleen: Unremarkable. Pancreas: Unremarkable. No masses or ductal dilation. Adrenals: Unremarkable. Kidneys: No suspicious renal mass. No nephroureterolithiasis or obstructive uropathy. Opacified portions of the collecting systems/ureters are without suspicious abnormality. Retroperitoneum: No aortic aneurysm. No adenopathy. Gastrointestinal: Focal fatty infiltration along the ascending colon likely from prior inflammation otherwise unremarkable. No obstruction. Urinary Bladder: Unremarkable. Reproductive: Unremarkable. Bones: No acute or suspicious abnormalities. Procedure Note Scott Mc MD - 10/21/2022 CLINICAL INFORMATION: Microscopic hematuria COMPARISON: None. TECHNIQUE: CT Abdomen and Pelvis with and w/o contrast. IV Contrast: 75cc Omnipaque 350. Protocol: Hematuria. Oral Contrast: Not given.Iterative reconstruction was utilized to minimize dose. FINDINGS: Lower Chest: Unremarkable. Liver: Focal fatty infiltration adjacent to the falciform ligamentotherwise unremarkable. Gallbladder/Biliary: Unremarkable. No biliary dilation. Spleen: Unremarkable. Pancreas: Unremarkable. No masses or ductal dilation. Adrenals: Unremarkable. Kidneys: No suspicious renal mass. No nephroureterolithiasis orobstructive uropathy. Opacified portions of the collecting systems/uretersare without suspicious abnormality. Retroperitoneum: No aortic aneurysm. No adenopathy. Gastrointestinal: Focal fatty infiltration along the ascending colonlikely from prior inflammation otherwise unremarkable. No obstruction. Urinary Bladder: Unremarkable. Reproductive: Unremarkable. Bones: No acute or suspicious abnormalities. IMPRESSION: Negative CT urogram. No renal mass, nephroureterolithiasis, or suspiciousabnormality in the opacified portions of the collecting systems orureters. 3-D rendering CT imaging was performed as part of this exam and fullyreviewed. These images confirm the findings seen on the standard CTsequences. us Matthew Rodney MD IMG CT ORDERABLES Final Resu lt documented in this encounter Visit Diagnoses Diagnosis Microhematuria documented in this encounter Administered Medications Inactive Administered Medications - up to 1 most recent administrations Medication Order MAR Action Action Date Dose Rate Site iohexol (OMNIPAQUE) 350 mg/mL injection 75 mL 75 mL, Intravenous, Once in imaging, contrast, Starting on 10/21/22 at 1446, For 1 dose, Radiology Appointment Given 10/21/2022 2:48 PM EDT 75 mL documented in this encounter Care Teams Agile Scrum Master Relationship Specialty Start Date End Date Pcp, No PCP - General 10/21/22 documented as of this encounter
--- NOTE | 2025-06-09 09:40 | CA_ITS ---
Acquisition Time: 2025-06-09 09:47:18 Total Exercise Time: 00:06:00 Test Indications: CP Medications: SEE H&P Protocol: KENIA Max HR: 162 BPM 89% of Pred: 182 BPM Max BP: 160/70 mmHG Max Work Load: 7.0 METS Exercise stress test with exercise 6 mins of Kenia Protocol, achieving 89% MPHR, with reports mild SOB and split second chest pressure in recovery, no CP with exercise, without any arrythmias, with normotensive response to exercise. Without any EKG changes meeting criteria for ischemia. In recovery, breathing returned to baseline. Test reviewed with Dr. Jhaveri. Referred By: Boom Salomon Electronically Signed By: Mikael Pope
--- OUTSIDE RECORDS SUMMARY | 2025-06-09 10:50 | XMS_ITS | Clinical Summary ---
Author Organization [address] Address [address] [place] [phone] Care Team Providers Care Business Objects Consultant Name Role Phone Unavailable Primary Care Provider [...] and follows the calculation proposed by the [place] [employer] (Diabetes Care 31: 1-6, 2008). It may have less accuracy in children, women and patients with certain erythrocyte disorders. Blood Venipuncture / Unknown 02/26/2023 11:12 AM EDT 02/26/2023 11:12 AM EDT Ivana Martinez APRN LAB BLOOD ORDERABLES Fi nal Result Performing Organization Address [facility]/State/ZIP Co de Phone Number [address] [phone] * Hepatitis C Ab with reflex to HCV PCR (05/13/2022 10:46 AM EDT) Hepatitis C Ab Initial Result 0.03 S/CO 05/13/2022 1:44 PM EDT [facility] Hepatitis C Ab Interpretation Non-React lilo Non-React lilo 05/13/2022 1:44 PM T [facility] Blood Venipuncture / Unknown 05/13/2022 10:46 AM EDT 05/13/2022 10:46 AM EDT us Ivana Martinez MRB ENGINEER LAB BLOOD ORDERABLES Fi nal Result [address] [address], [facility] [phone] * Colonoscopy (10/12/2021 7:19 AM EST) Colonoscopy Endoscopy Patient Name: Jay Guillermo Procedure Date: 10/12/2021 7:19 AM Date of : 1985 Age: 36 Gender: Male Admit Type: Outpatient [facility] #: [id number] Note Status: Finalized Attending MD: Matthew Huynh [...] and oxygen saturations were monitored continuously. The [id number] was introduced through the anus and advanced [...] the patient. Procedure Code(s): --- Professional --- 78029, Colonoscopy, flexible; with biopsy, single or multiple Diagnosis Code(s): --- Professional --- K62.89, Other specified diseases of anus and rectum R10.84, Generalized abdominal pain R19.7, Diarrhea, unspecified CPT copyright 2020 [place] [employer]. All rights reserved. The codes documented in this report are preliminary and upon acupuncture physician review may be revised to meet current [...] Documents on File Type Date Recorded Patient Plastic Surgeon Expl anation Healthcare Plastic Surgeon/Po wer of Lease Examiner 03/19/2021 4:27 PM 2020
--- OUTSIDE RECORDS SUMMARY | 2025-06-09 10:50 | XMS_ITS | Encounter Summary ---
Author Organization [facility] and [facility] Address [address] [place] [address] Care Team Providers Care Protein Purification Scientist Name Role Phone Ivana Martinez APRN Primary Care Provider Encounter Details Date Type Department Care Team (Late st Contact Info) Description 02/26/2023 Orders Only [facility] [place] [facility] [address] [place], [place] [phone] Ivana Martinez APRN [address] [place] [address] [address] [place] [address] Hypertension, unspecified type; Hypothyroidism, unspecified [...] - 11.0 x1000/ L 02/26/2023 3:06 PM [facility] RBC 5.06 4.00 - 6.00 M/ L 02/26/2023 3:06 PM [facility] Hemoglobin 16.4 13.2 - 17.1 g/dL 02/26/2023 3:06 PM [facility] Hematocrit 44.90 38.50 - 50.00 % 02/26/2023 3:06 PM [facility] MCV 88.7 80.0 - 100.0 fL 02/26/2023 3:06 PM [facility] MCH 32.4 27.0 - 33.0 pg 02/26/2023 3:06 PM [facility] MCHC 36.5(H) 31.0 - 36.0 g/dL 02/26/2023 3:06 PM [facility] RDW-CV 12.6 11.0 - 15.0 % 02/26/2023 3:06 PM [facility] Platelets 331 150 - 420 x1000/ L 02/26/2023 3:06 PM [facility] MPV 9.8 8.0 - 12.0 fL 02/26/2023 3:06 PM [facility] Neutrophils 42.8 39.0 - 72.0 % 02/26/2023 3:06 PM [facility] Lymphocytes 37.2 17.0 - 50.0 % 02/26/2023 3:06 PM [facility] Monocytes 9.5 4.0 - 12.0 % 02/26/2023 3:06 PM [facility] Eosinophils 8.8(H) 0.0 - 5.0 % 02/26/2023 3:06 PM [facility] Basophil 1.3 0.0 - 1.4 % 02/26/2023 3:06 PM [facility] Immature Granulocytes 0.4 0.0 - 1.0 % 02/26/2023 3:06 PM [facility] nRBC 0.0 0.0 - 1.0 % 02/26/2023 3:06 PM EDT [facility] ANC(Abs Neutrophil Count) 2.30 2.00 - 7.60 x 1000/ L 02/26/2023 3:06 PM T [facility] Absolute Lymphocyte Count 2.00 0.60 - 3.70 x 1000/ L 02/26/2023 3:06 PM T [facility] Monocyte Absolute Count 0.51 0.00 - 1.00 x 1000/ L 02/26/2023 3:06 PM EDT [facility] Eosinophil Absolute Count 0.47 0.00 - 1.00 x 1000/ L 02/26/2023 3:06 PM T [facility] Basophil Absolute Count 0.07 0.00 - 1.00 x 1000/ L 02/26/2023 3:06 PM [facility] Absolute Immature Granulocyte Count 0.02 0.00 - 0.30 x 1000/ L 02/26/2023 3:06 PM [facility] Absolute nRBC 0.00 0.00 - 1.00 x 1000/ L 02/26/2023 3:06 PM [facility] Blood Venipuncture / Unknown 02/26/2023 11:12 AM EDT 02/26/2023 11:12 AM EDT us Ivana Martinez BOILER OR ENGINE OPERATOR LAB BLOOD ORDERABLES Fi nal Result [address] [phone] * (ABNORMAL) Comprehensive metabolic panel (02/26/2023 11:12 AM EDT) Sodium 140 136 - 144 mmol/L 02/26/2023 3:26 PM EDT [facility] Potassium 4.1 3.3 - 5.3 mmol/L 02/26/2023 3:26 PM T [facility] Chloride 99 98 - 107 mmol/L 02/26/2023 3:26 PM EDT [facility] CO2 30 20 - 30 mmol/L 02/26/2023 3:26 PM T [facility] Anion Gap 11 7 - 17 02/26/2023 3:26 PM [facility] Glucose 96 70 - 100 mg/dL 02/26/2023 3:26 PM [facility] BUN 8 6 - 20 mg/dL 02/26/2023 3:26 PM [facility] Creatinine 0.76 0.40 - 1.30 mg/dL 02/26/2023 3:26 PM [facility] Calcium 10.0 8.8 - 10.2 mg/dL 02/26/2023 3:26 PM [facility] BUN/Creatinine Ratio 10.5 8.0 - 23.0 02/26/2023 3:26 PM [facility] Total Protein 7.7 6.6 - 8.7 g/dL 023 3:26 PM [facility] Albumin 5.0(H) 3.6 - 4.9 g/dL 02/26/2023 3:26 PM [facility] Total Bilirubin 0.4 <=1.2 mg/dL 02/27/20 3:26 PM [facility] Alkaline Phosphatase 57 9 - 122 U/L 02/26/2023 3:26 PM [facility] Alanine Aminotransferase (ALT) 27 9 - 59 U/L 02/26/2023 3:26 PM [facility] Comment:Calcium dobesilate c an cause artificially low ALT results at therapeutic concentrations Aspartate Aminotransferase (AST) 40(H) 10 - 35 U/L 02/26/2023 3:26 PM [facility] Globulin 2.7 2.3 - 3.5 g/dL 02/26/2023 3:26 PM [facility] A/G Ratio 1.9 1.0 - 2.2 02/26/2023 3:26 PM [facility] AST/ALT Ratio 1.5 Reference Range Not Established 02/26/2023 3:26 PM [facility] eGFR (Creatinine) >60 >=60 mL/min/1.73m2 02/26/2023 3:26 PM [facility] Comment: Values < 60 mL/min/1.73 m2 may indicate CKD if present for more than three months AND creatinine is at steady state. The eGFR provides a rough estimate of kidney function. On 03/19/22 all [facility] Clinical Labs and [facility] began using a yka-rumu-wuydo formula for estimating GFR called CKD-EPI Creatinine 2020. This equation reports eGFR based on creatinine, patient age, clinical sex, and is standardized to a body surface area of 1.73 m2. For the same creatinine, this new race-free eGFR will be lower than prior reported Black eGFR results and higher than prior Non-Black eGFR results. For further guidance, please refer to the CKD: Adult Shellacker Signature pathway. Blood Venipuncture / Unknown 02/26/2023 11:12 AM EDT 02/26/2023 11:12 AM EDT Ivana Martinez APRN LAB BLOOD ORDERABLES Fi nal Result [address] [phone] * (ABNORMAL) Hemoglobin A1c (02/26/2023 11:12 AM EDT) Hemoglobin A1c 5.8(H) 4.0 - 5.6 % 02/26/2023 7:37 PM T [facility] Comment: Hemoglobin A1c values of [...] mg/dL 120 mg/dL 02/26/2023 7:37 PM T [facility] Comment: Estimated average glucose (eAG) is a calculated value designed to estimate the expected average blood glucose level throughout the day from a single measurement of glycated hemoglobin A1C (HbA1c) and follows the calculation proposed by the [place] [employer] (Diabetes Care 31: 1-6, 2008). It may have less accuracy in children, women and patients with certain erythrocyte disorders. Blood Venipuncture / Unknown 02/26/2023 11:12 AM EDT 02/26/2023 11:12 AM EDT us Ivana Martinez BOILER OR ENGINE OPERATOR LAB BLOOD ORDERABLES Fi nal Result Performing Organization Address City/State/[facility] Co de Phone Number [address] [phone] * (ABNORMAL) Lipid panel (02/26/2023 11:12 AM EDT) Cholesterol 180 See Comment mg/dL 02/26/2023 3:26 PM T [facility] Comment: Total Cholesterol (mg/dL) Adults (>18 years) Children (<18 years) Desirable <200 <170 Borderline-High 200-239 170-199 High >=240 >=200 HDL 62 >=40 mg/dL 02/26/2023 3:26 PM T [facility] Triglycerides 161(H) See Comment mg/dL 02/26/2023 3:26 PM [facility] Comment: Triglycerides (mg/dL) Adults (>18 years) Children (<18 years) Desirable <150 Not Established Borderline-High 150-199 Not Established High 200-499 Not Established Chol/HDL Ratio 2.9 0.0 - 5.0 02/26/2023 3:26 PM T [facility] LDL Calculated 91 See Comment mg/dL 02/26/2023 3:26 PM EDT [facility] Comment: Effective 01/09/2022, LDL is calculated using the El-NIH equation, which is more accurate than the Friedewald and Gato-Sanchez equations. LDL Cholesterol (mg/dL) Adults (>18 years) Children (<18 years) Desirable <100 <110 Above Desirable 100-129 Not Established Borderline-High 130-159 110-129 High 160-189 >=130 Very High >=190 Not Established Blood Venipuncture / Unknown 02/26/2023 11:12 AM EDT 02/26/2023 11:12 AM EDT B-Obvious LAB BLOOD ORDERABLES Fi nal Result Performing Organization Address [facility] Co de Phone Number [address] [phone] * (ABNORMAL) Vitamin D, 25-hydroxy (02/26/2023 11:12 AM EDT) Vitamin W60-Rnkmbjj 11.1(L) 30.0 - 100.0 ng/mL 02/27/2023 10:42 AM EDT [facility] Comment: Vitamin D Status: Results in ng/mL <10.0: Deficient 10.0 - 29.9: Insufficient 30.0 - 100.0: Sufficient >100: Toxic Reference ranges established by [employer]. Blood Venipuncture / Unknown 02/26/2023 11:12 AM EDT 02/26/2023 11:12 AM EDT [facility] LAB BLOOD ORDERABLES Fi nal Result Performing Organization Address [facility]/ZIP Co de Phone Number [address] [phone] * (ABNORMAL) Gamma GT (02/26/2023 11:12 AM EDT) GGT 108(H) <48 U/L 02/26/2023 3:26 PM EDT [facility] Blood Venipuncture / Unknown 02/26/2023 11:12 AM EDT 02/26/2023 11:12 AM EDT Ivana Martinez [facility] LAB BLOOD ORDERABLES Fi nal Result Performing Organization Address [facility] Co de Phone Number [address] [phone] * TSH w/reflex to FT4 (BH GH LMW Q YH) (02/26/2023 11:12 AM EDT) Thyroid Stimulating Hormone 2.550 See Comment IU/mL 02/26/2023 3:26 PM EDT [facility] Comment: Male & Non- Females: 0.270-4.200 IU/mL 1st Trimester: 0.110-3.480 IU/mL 2nd Trimester: 0.320-3.850 IU/mL Blood Venipuncture / Unknown 02/26/2023 11:12 AM EDT 02/26/2023 11:12 AM EDT Ivana Martinez BOILER OR ENGINE OPERATOR LAB BLOOD ORDERABLES Fi nal Result Performing Organization Address [facility]/ZIP Co de Phone Number [address] [phone] documented in this encounter Visit Diagnoses Diagnosis Hypertension, unspecified type Hypothyroidism, unspecified type LFT elevation Other abnormal blood chemistry Vitamin D deficiency Unspecified vitamin D deficiency documented in this encounter Additional Health Concerns Assessment Noted Time PHQ-9 Depression Total Score: 0 02/27/20 23 10:41 AM EDT documented as of this encounter Care Teams Protein Purification Scientist Relationship Specialty Start Date End Date Ivana Martinez APRN PCP - General Family Medicine 05/13/22 01/27/24 documented as of this encounter
--- OUTSIDE RECORDS SUMMARY | 2025-06-09 10:50 | XMS_ITS | Encounter Summary ---
Author Organization [facility] and Home Health Address [address] [place] [address] Care Team Providers Care Protein Specialist Name Role Phone Andrew Martinezhanie HECTOR Primary Care Provider Encounter Details Date Type Department Care Team (Late st Contact Info) Description 08/22/2021 Scanned Document [facility] Internal Medicine [address], [address] [place], [place] [phone] Zoya Clayton MD [facility] [address] [address] Social History Tobacco Use Types [...] as of this encounter Care Teams Protein Specialist Relationship Specialty Start Date End Date Ivana Martinez APRN PCP - General Family Medicine 05/13/22 01/27/24 documented as of this encounter
--- OUTSIDE RECORDS SUMMARY | 2025-06-09 10:50 | XMS_ITS | Encounter Summary ---
Author Organization [facility] and Home Health Address [address] [place] [address] Care Team Providers Care Cellar Supervisor Name Role Phone Michelle Ivana YOUNG Primary Care Provider Encounter Details Date Type Department Care Team (Late st Contact Info) Description 08/18/2021 EpicOnHand Encounter [facility] Internal Medicine [address] [place] [address] Leny Hernandez MD Social History Tobacco Use [...] documented as of this encounter Care Teams Cellar Supervisor Relationship Specialty Start Date End Date Ivana Martinez APRN PCP - General Family Medicine 05/13/22 01/27/24 documented as of this encounter
--- OUTSIDE RECORDS SUMMARY | 2025-06-09 10:50 | XMS_ITS | Encounter Summary ---
Author Organization [facility] ou and Home Health Address [address] [place] [address] Care Team Providers Care Plexiglas Former Name Role Phone Ivana Martinez HECTOR Primary Care Provider Reason for Visit * Reason Comments Medication Refill Encounter Details Date Type Department Care Team (Late st Contact Info) Description 09/29/2020 Refill [facility] Family Medicine [address] [place], [place] [phone] Zoya Clayton MD [address] [address] Medication Refill Social History Tobacco [...] documented as of this encounter Care Teams Plexiglas Former Relationship Specialty Start Date End Date Ivana Martinez APRN PCP - General Family Medicine 05/13/22 01/27/24 documented as of this encounter
--- OUTSIDE RECORDS SUMMARY | 2025-06-09 10:50 | XMS_ITS | Encounter Summary ---
Author Organization [facility] and [facility] Address [address] [place] [address] Care Team Providers Care Lab Head Name Role Phone Ivana Martinez HECTOR Primary Care Provider Encounter Details Date Type Department Care Team (Late st Contact Info) Description 10/12/2021 Scanned Document [facility] Gastroenterology [facility] [address] [place], [place] [address] Matthew Huynh MD [address] [place] [address] Social History Tobacco Use Types [...] documented as of this encounter Care Teams Lab Head Relationship Specialty Start Date End Date Ivana Martinez APRN PCP - General Family Medicine 05/13/22 01/27/24 documented as of this encounter
--- OUTSIDE RECORDS SUMMARY | 2025-06-09 10:50 | XMS_ITS | Encounter Summary ---
Author Organization [facility] and Home Health Address [address] [place] [address] Care Team Providers Care Grid Caster Name Role Phone JohannaAndrew mcelroyhanie HECTOR Primary Care Provider Encounter Details Date Type Department Care Team (Late st Contact Info) Description 09/26/2021 Scanned Document [facility] Internal Medicine [address], [address] [place], [place] [address] External, Provider Social History Tobacco Use Types [...] documented as of this encounter Care Teams Grid Caster Relationship Specialty Start Date End Date Ivana Martinez APRN PCP - General Family Medicine 05/13/22 01/27/24 documented as of this encounter
--- OUTSIDE RECORDS SUMMARY | 2025-06-09 10:50 | XMS_ITS | Encounter Summary ---
Author Organization [facility] oup and Home Health Address [address] [place] [address] Care Team Providers Care System Archive Analyst Name Role Phone Ivana Martinez HECTOR Primary Care Provider Reason for Visit * Reason Onset Date Comments Medication Refill 07/12/2021 Encounter Details Date Type Department Care Team (Late st Contact Info) Description 07/12/2021 Refill [facility] Internal Medicine [address] [place] [address] Zoya Clayton MD [address] [place] [phone] Medication Refill Social History Tobacco Use [...] as of this encounter Care Teams System Archive Analyst Relationship Specialty Start Date End Date Ivana Martinez APRN PCP - General Family Medicine 05/13/22 01/27/24 documented as of this encounter
--- OUTSIDE RECORDS SUMMARY | 2025-06-09 10:50 | XMS_ITS | Encounter Summary ---
Author Organization [facility] oup and Home Health Address [address] [place] [address] Care Team Providers Care Taxicab Coordinator Name Role Phone Ivana Martinez HECTOR Primary Care Provider Encounter Details Date Type Department Care Team (Late st Contact Info) Description 08/27/2021 Scanned Document [address] DrShellie [facility] [address] [place] [address] Provider, historical . Social History Tobacco [...] documented as of this encounter Care Teams Taxicab Coordinator Relationship Specialty Start Date End Date Ivana Martinez APRN PCP - General Family Medicine 05/13/22 01/27/24 documented as of this encounter
--- OUTSIDE RECORDS SUMMARY | 2025-06-09 10:50 | XMS_ITS | Encounter Summary ---
Author Organization [facility] and Home Health Address [address] [place] [address] Care Team Providers Care Fusion Juncture Grinder Name Role Phone Ivana Martinez HECTOR Primary Care Provider Encounter Details Date Type Department Care Team (Late st Contact Info) Description 11/08/2020 Scanned Document [address] DrShellie [employer] [facility] [address] [place] [address] External, Provider Social History Tobacco Use [...] documented as of this encounter Care Teams Fusion Juncture Grinder Relationship Specialty Start Date End Date Ivana Martinez APRN PCP - General Family Medicine 05/13/22 01/27/24 documented as of this encounter
--- OUTSIDE RECORDS SUMMARY | 2025-06-09 10:50 | XMS_ITS | Clinical Summary ---
Author Organization [facility] Address [address] [place] [address] Phone Care Team Providers Care Retail Cosmetics Sales Beauty Advisor Name Role Phone Physician, Pcp Unknown Primary [...] complete this topic Insurance MEDICA[place] - [place] [facility] Care Teams Retail Cosmetics Sales Beauty Advisor Relationship Specialty Start Date End Date Physician, Pcp Unknown PCP - General 02/22/25
--- OUTSIDE RECORDS SUMMARY | 2025-06-09 10:50 | XMS_ITS | Encounter Summary ---
Author Organization [facility] and [facility] Health Address [address] [place] [address] Care Team Providers Care Athletic Equipment Custodian Name Role Phone Andrew Martinezhanie HECTOR Primary Care Provider Encounter Details Date Type Department Care Team (Late st Contact Info) Description 09/26/2021 Scanned Document [facility] Internal Medicine [address], [address] [place], [place] [address] Zoya Clayton MD [facility] [address] [phone] Social History Tobacco Use Types [...]
--- OUTSIDE RECORDS SUMMARY | 2025-06-09 10:50 | XMS_ITS | Encounter Summary ---
Author Organization [facility]up and Home Health Address [address] [place] [address] Care Team Providers Care Metal Smelter Name Role Phone Andrew Martinezhanie HECTOR Primary Care Provider Encounter Details Date Type Department Care Team (Late st Contact Info) Description 11/13/2020 Scanned Document [facility] Internal Medicine [address], [address] [place], [place] [address] Zoya Clayton MD [facility] [address] [phone] Social History Tobacco Use [...] as of this encounter Care Teams Metal Smelter Relationship Specialty Start Date End Date Ivana Martinez APRN PCP - General Family Medicine 05/13/22 01/27/24 documented as of this encounter
--- OUTSIDE RECORDS SUMMARY | 2025-06-09 10:50 | XMS_ITS | Encounter Summary ---
Author Organization [facility] and Home Health Address [address] [place] [address] Care Team Providers Care Seo Engineer Name Role Phone Ivana Martinez HECTOR Primary Care Provider Reason for Visit * Reason Comments Medication Refill Encounter Details Date Type Department Care Team (Late st Contact Info) Description 06/20/2021 Refill [facility] Internal Medicine [address] [place] [address] Zoya Clayton MD [facility] [address] [phone] Medication Refill Social History [...] documented as of this encounter Care Teams Seo Engineer Relationship Specialty Start Date End Date Ivana Martinez APRN PCP - General Family Medicine 05/13/22 01/27/24 documented as of this encounter
--- OUTSIDE RECORDS SUMMARY | 2025-06-09 10:50 | XMS_ITS | Encounter Summary ---
Author Organization [facility] Address [address] [place] [address] Care Team Providers Care Encephalographer Name Role Phone Physician, Pcp Unknown Primary Care Provider Ale vailable Encounter Details Date Type Department Care Team (Late st Contact Info) Description 08/19/2024 Lab Requisition [facility] - Main Lab [address] [facility] [place] [address] Denzel Longo MD [address] [place] [address] [place] [phone] Local infection of the skin and subcutaneous [...] ORDERABLES Final Result [facility] [address] [place] [address], documented in this encounter Visit Diagnoses Diagnosis Local infection of the skin and subcutaneous tissue, unspecified documented in this encounter Care Teams Encephalographer Relationship Specialty Start Date End Date Physician, Pcp Unknown PCP - General 02/22/25 documented as of this encounter
--- OUTSIDE RECORDS SUMMARY | 2025-06-09 10:50 | XMS_ITS | Encounter Summary ---
Author Organization [facility] and Home Health Address [address] [place] [address] Care Team Providers Care Dock Pumper Name Role Phone Ivana Martinez TELEVISION WRITER Primary Care Provider Encounter Details Date Type Department Care Team (Late st Contact Info) Description 05/05/2019 Scanned Document Scarlet Espinosa M.D. [address] [facility] [address] [place] [address] Jeffy Espinosa MD [address] [place] [phone] Social History Tobacco Use Types Packs/Day [...] documented as of this encounter Care Teams Dock Pumper Relationship Specialty Start Date End Date Ivana Martinez APRN PCP - General Family Medicine 05/13/22 01/27/24 documented as of this encounter
--- OUTSIDE RECORDS SUMMARY | 2025-06-09 10:50 | XMS_ITS | Encounter Summary ---
Author Organization [facility] and Home Health Address [address] [place] [address] Care Team Providers Care Transmission Technician Name Role Phone Ivana Martinez HECTOR Primary Care Provider Reason for Visit * Reason Comments Medication Refill Encounter Details Date Type Department Care Team (Late st Contact Info) Description 06/01/2021 Refill [facility] Internal Medicine [address] [place] [address] Zoya Clayton MD [facility] [address] [phone] Medication Refill Social History Tobacco [...] as of this encounter Care Teams Transmission Technician Relationship Specialty Start Date End Date Ivana Martinez APRN PCP - General Family Medicine 05/13/22 01/27/24 documented as of this encounter
--- OUTSIDE RECORDS SUMMARY | 2025-06-09 10:50 | XMS_ITS | Clinical Summary ---
Author Organization [facility] Address [address] [place] [address] Care Team Providers Care Plow Mechanic Name Role Phone Pcp, No Primary Care [...] patient's age to complete this topic Insurance [facility] Care Teams Plow Mechanic Relationship Specialty Start Date End Date Pcp, No PCP - General 10/21/22
--- OUTSIDE RECORDS SUMMARY | 2025-06-09 10:50 | XMS_ITS | Encounter Summary ---
Author Organization [facility] oup and Home Health Address [address] [place] [address] Care Team Providers Care Antique Clock Repairer Name Role Phone Ivana Martinez APRN Primary Care Provider Encounter Details Date Type Department Care Team (Late st Contact Info) Description 05/06/2019 Scanned Document Scarlet Espinosa M.D. [address] [facility] [address] [place] [address] Jeffy Espinosa MD [address] [place] [phone] Social History Tobacco Use Types Packs/Day [...] documented as of this encounter Care Teams Antique Clock Repairer Relationship Specialty Start Date End Date Ivana Martinez APRN PCP - General Family Medicine 05/13/22 01/27/24 documented as of this encounter
--- OUTSIDE RECORDS SUMMARY | 2025-06-09 10:51 | XMS_ITS | Encounter Summary ---
Author Organization [facility] oup and Home Health Address [address] [place] [address] Care Team Providers Care Timber Setter Name Role Phone Andrew Martinezhanie HECTOR Primary Care Provider Encounter Details Date Type Department Care Team (Late st Contact Info) Description 11/17/2021 Scanned Document [facility] Internal Medicine [address] [place], [place] [address] Zoya Clayton MD [facility] [address] [phone] Social History Tobacco Use Types [...] documented as of this encounter Care Teams Timber Setter Relationship Specialty Start Date End Date Ivana Martinez APRN PCP - General Family Medicine 05/13/22 01/27/24 documented as of this encounter
--- OUTSIDE RECORDS SUMMARY | 2025-06-09 10:51 | XMS_ITS | Encounter Summary ---
Author Organization [facility] Address [address] [place] [address] Care Team Providers Care Meat Processor Name Role Phone Ivana Martinez HECTOR Primary Care Provider Reason for Visit * Reason Onset Date Comments Medication Refill 08/28/2022 Encounter Details Date Type Department Care Team (Late st Contact Info) Description 08/28/2022 Refill [facility] Internal Medicine [address] [place] [address] Zoya Clayton MD [address] [place] [phone] Medication Refill Social History Tobacco Use [...] documented as of this encounter Care Teams Meat Processor Relationship Specialty Start Date End Date Ivana Martinez APRN PCP - General Family Medicine 05/13/22 01/27/24 documented as of this encounter
--- OUTSIDE RECORDS SUMMARY | 2025-06-09 10:51 | XMS_ITS | Encounter Summary ---
Author Organization [facility] Address [address] [place] [address] Care Team Providers Care Breeder Hen Service Technician Name Role Phone Ivana Martinez HECTOR Primary Care Provider Reason for Visit * Reason Onset Date Comments Medication Refill 12/31/2022 Encounter Details Date Type Department Care Team (Late st Contact Info) Description 12/31/2022 Refill [facility] Internal Medicine [address], [address] [place] [address] Zoya Clayton MD [address] [place] [phone] Medication Refill Social History Tobacco Use [...] documented as of this encounter Care Teams Breeder Hen Service Technician Relationship Specialty Start Date End Date Ivana Martinez APRN PCP - General Family Medicine 05/13/22 01/27/24 documented as of this encounter
--- OUTSIDE RECORDS SUMMARY | 2025-06-09 10:51 | XMS_ITS | Encounter Summary ---
Author Organization [facility] Address [address] [place] [address] Care Team Providers Care Tool And Die Repair Name Role Phone Andrew Martinezhanie HECTOR Primary Care Provider Reason for Visit * Reason Comments Medication Refill Encounter Details Date Type Department Care Team (Late st Contact Info) Description 06/22/2022 Refill [facility] Internal Medicine [address], [address]st [place] [address] Zoya Clayton MD [facility] [address] [phone] Medication Refill Social History Tobacco [...] as of this encounter Care Teams Tool And Die Repair Relationship Specialty Start Date End Date Ivana Martinez APRN PCP - General Family Medicine 05/13/22 01/27/24 documented as of this encounter
--- OUTSIDE RECORDS SUMMARY | 2025-06-09 10:51 | XMS_ITS | Encounter Summary ---
Author Organization [facility] Address [address] [place] [address] Care Team Providers Care Refrigerating Oiler Name Role Phone Ivana Martinez ASSET PROTECTION AGENT Primary Care Provider Reason for Visit * Reason Onset Date Comments Medication Refill 12/17/2022 Encounter Details Date Type Department Care Team (Late st Contact Info) Description 12/17/2022 Refill [facility] [address] [employer] [place], [place] [phone] Noel Brandon MD [address] [place] [phone] Medication Refill Social History Tobacco Use Types [...] documented as of this encounter Care Teams Refrigerating Oiler Relationship Specialty Start Date End Date Ivana Martinez APRN PCP - General Family Medicine 05/13/22 01/27/24 documented as of this encounter
--- OUTSIDE RECORDS SUMMARY | 2025-06-09 10:51 | XMS_ITS | Patient Health Record ---
Author Organization [facility], Address [address] [place] [address] Reason For Referral No Information Plan Of Treatment No Information Insurance Providers Payer Name Payer Address Payer Phone Subscriber Number Group Number Insured Name Patient Relationship to Insured Coverage Start Date Coverage End Date Medicaid of [place] [address] [place] [address] [id number] Jay major Self - patient is the insured
--- OUTSIDE RECORDS SUMMARY | 2025-06-09 10:51 | XMS_ITS | Encounter Summary ---
Author Organization [facility] Address [address] [place] [address] Care Team Providers Care Adjunct Communications Faculty Member Name Role Phone Ivana Martinez HECTOR Primary Care Provider Reason for Visit * Reason Onset Date Comments Medication Refill 06/25/2022 Encounter Details Date Type Department Care Team (Late st Contact Info) Description 06/25/2022 Refill [facility] Internal Medicine [address], [address]st [place] [address] Zoya Clayton MD [address] [place] [phone] Medication Refill Social History Tobacco Use [...] as of this encounter Care Teams Adjunct Communications Faculty Member Relationship Specialty Start Date End Date Ivana Martinez APRN PCP - General Family Medicine 05/13/22 01/27/24 documented as of this encounter
--- OUTSIDE RECORDS SUMMARY | 2025-06-09 10:51 | XMS_ITS | Encounter Summary ---
Author Organization [facility] Address [address] [place] [address] Care Team Providers Care Pouring Crane Operator Name Role Phone Pcp, No Primary Care Provider Unavailabl e Encounter Details Date Type Department Care Team (Late st Contact Info) Description 10/12/2022 Scanned Document [facility] [address] [phone] Matthew Rodney MD [address] [place] [phone] Social History Tobacco Use Types Packs/Day [...] on filedocumented in this encounter Care Teams Pouring Crane Operator Relationship Specialty Start Date End Date Pcp, No PCP - General 10/21/22 documented as of this encounter
--- OUTSIDE RECORDS SUMMARY | 2025-06-09 10:51 | XMS_ITS | Encounter Summary ---
Author Organization [facility] Address [address] [place] [address] Care Team Providers Care Fire Marshal Name Role Phone Ivana Martinez APRN Primary Care Provider Encounter Details Date Type Department Care Team (Late st Contact Info) Description 09/03/2022 Orders Only [facility] Family Medicine [address] [place], [place] [phone] Ivana Martinez APRN [address] [place] [address] [address] [place] [address] Hypertension, unspecified type; Hypercalcemia; Elevated [...] 136 - 144 mmol/L 09/03/2022 12:57 PM [facility] Potassium 4.0 3.3 - 5.3 mmol/L 09/03/2022 12:57 PM [facility] Chloride 97(L) 98 - 107 mmol/L 09/03/2022 12:57 PM [facility] CO2 29 20 - 30 mmol/L 09/03/2022 12:57 PM [facility] Anion Gap 12 7 - 17 09/03/2022 12:57 PM [facility] Glucose 116(H) 70 - 100 mg/dL 09/03/2022 12:57 PM [facility] BUN 8 6 - 20 mg/dL 09/03/2022 12:57 PM [facility] Creatinine 0.86 0.40 - 1.30 mg/dL 09/03/2022 12:57 PM [facility] Calcium 9.5 8.8 - 10.2 mg/dL 09/03/2022 12:57 PM [facility] BUN/Creatinine Ratio 9.3 8.0 - 23.0 08/06 12:57 PM [facility] Total Protein 7.4 6.6 - 8.7 g/dL 09/03/2022 12:57 PM [facility] Albumin 5.0(H) 3.6 - 4.9 g/dL 09/03/2022 12:57 PM [facility] Total Bilirubin 1.0 <=1.2 mg/dL 09/03/19 12:57 PM [facility] Alkaline Phosphatase 70 9 - 122 U/L 12:57 PM [facility] Alanine Aminotransferase (ALT) 60(H) 9 - 59 U/L 09/03/2022 12:57 PM [facility] Comment:Calcium dobesilate c an cause artificially low ALT results at therapeutic concentrations Aspartate Aminotransferase (AST) 66(H) 10 - 35 U/L 09/03/2022 12:57 PM [facility] Globulin 2.4 2.3 - 3.5 g/dL 09/03/2022 12:57 PM [facility] A/G Ratio 2.1 1.0 - 2.2 09/03/2022 12:57 PM [facility] AST/ALT Ratio 1.1 See Comment 09/03/2022 12:57 PM [facility] Comment: Adult with mild elevations of [...] >60 >=60 mL/min/1.73 m2 09/03/2022 12:57 PM [facility] Comment:Estimated glomerular filtration rate (eGFR) was [...] 9:58 AM EST us Ivana Martinez SUPPLY SERVICE WORKER LAB BLOOD ORDERABLES Fi nal Result [address] [phone] * (ABNORMAL) CBC auto differential (09/03/2022 9:58 AM EST) WBC 6.2 4.0 - 11.0 x1000/ L 09/03/2022 12:01 PM [facility] RBC 5.11 4.00 - 6.00 M/ L 09/03/2022 12:01 PM [facility] Hemoglobin 16.5 13.2 - 17.1 g/dL 09/03/2022 12:01 [facility] Hematocrit 47.30 38.50 - 50.00 % 09/03/2022 12:01 [facility] MCV 92.6 80.0 - 100.0 fL 09/03/2022 12:01 [facility] MCH 32.3 27.0 - 33.0 pg 09/03/2022 12:01 PM [facility] MCHC 34.9 31.0 - 36.0 g/dL 09/03/2022 12:01 [facility] RDW-CV 12.7 11.0 - 15.0 % 09/03/2022 12:01 PM [facility] Platelets 278 150 - 420 x1000/ L 09/03/2022 12:01 PM [facility] MPV 10.2 8.0 - 12.0 fL 09/03/2022 12:01 [facility] Neutrophils 40.9 39.0 - 72.0 % 09/03/2022 12:01 PM [facility] Lymphocytes 39.7 17.0 - 50.0 % 09/03/2022 12:01 [facility] Monocytes 8.8 4.0 - 12.0 % 09/03/2022 12:01 [facility] Eosinophils 9.3(H) 0.0 - 5.0 % 09/03/2022 12:01 [facility] Basophil 1.1 0.0 - 1.4 % 09/03/2022 12:01 [facility] Immature Granulocytes 0.2 0.0 - 1.0 % 09/03/2022 12:01 PM [facility] nRBC 0.0 0.0 - 1.0 % 09/03/2022 12:01 [facility] ANC(Abs Neutrophil Count) 2.55 2.00 - 7.60 x 1000/ L 09/03/2022 12:01 [facility] Absolute Lymphocyte Count 2.48 0.60 - 3.70 x 1000/ L 09/03/2022 12:01 PM [facility] Monocyte Absolute Count 0.55 0.00 - 1.00 x 1000/ L 09/03/2022 12:01 PM [facility] Eosinophil Absolute Count 0.58 0.00 - 1.00 x 1000/ L 09/03/2022 12:01 PM [facility] Basophil Absolute Count 0.07 0.00 - 1.00 x 1000/ L 09/03/2022 12:01 PM [facility] Absolute Immature Granulocyte Count 0.01 0.00 - 0.30 x 1000/ L 09/03/2022 12:01 PM [facility] Absolute nRBC 0.00 0.00 - 1.00 x 1000/ L 09/03/2022 12:01 PM [facility] Blood Venipuncture / Unknown 09/03/2022 9:58 AM EST 09/03/2022 9:58 AM EST Ivana Petastonle SUPPLY SERVICE WORKER LAB BLOOD ORDERABLES Fi nal Result Performing Organization Address [facility]/ZIP Co de Phone Number [address] [phone] * Treponema pallidum (syphilis) antibody w/reflex (09/03/2022 9:58 AM EST) Treponema pallidum Ab Index <0.100 <0.9 Index 09/03/2022 1:38 PM [facility] Treponema pallidum Antibody Total, Serum Non-Reacti ve Non-Reacti ve 09/03/2022 1:38 PM [facility] Blood Venipuncture / Unknown 09/03/2022 9:58 AM EST 09/03/2022 9:58 AM EST us Ivana Petastonle SUPPLY SERVICE WORKER LAB BLOOD ORDERABLES Fi nal Result Performing Organization Address [facility]/ZIP Co de Phone Number [address] [phone] * (ABNORMAL) Gamma GT (09/03/2022 9:58 AM EST) GGT 133(H) <48 U/L 09/03/2022 12:57 PM [facility] Blood Venipuncture / Unknown 09/03/2022 9:58 AM EST 09/03/2022 9:58 AM EST Ivana Petastonle SUPPLY SERVICE WORKER LAB BLOOD ORDERABLES Fi nal Result Performing Organization Address [facility] Phone Number [address] [phone] * (ABNORMAL) Vitamin D, 25-hydroxy (09/03/2022 9:58 AM EST) Vitamin [id number] 12.1(L) 30.0 - 100.0 ng/mL 09/03/2022 1:55 PM [facility] Comment: Vitamin D Status: Results in ng/mL <10.0: Deficient 10.0 - 29.9: Insufficient 30.0 - 100.0: Sufficient >100: Toxic Reference ranges established by [email or web address]. Blood Venipuncture / Unknown 09/03/2022 9:58 AM EST 09/03/2022 9:58 AM EST Ivanabhavin Lesliele SUPPLY SERVICE WORKER LAB BLOOD ORDERABLES Fi nal Result Performing Organization Address [facility] Phone Number [address] [phone] * (ABNORMAL) Lipid panel (09/03/2022 9:58 AM EST) Cholesterol 201(H) See Comment mg/dL 09/03/2022 12:57 PM [facility] Comment: Total Cholesterol (mg/dL) Adults (>18 years) Children (<18 years) Desirable <200 <170 Borderline-High 200-239 170-199 High >=240 >=200 HDL 76 >=40 mg/dL 09/03/2022 12:57 PM [facility] Triglycerides 157(H) See Comment mg/dL 09/03/2022 12:57 PM [facility] Comment: Triglycerides (mg/dL) Adults (>18 years) Children (<18 years) Desirable <150 Not Established Borderline-High 150-199 Not Established High 200-499 Not Established Chol/HDL Ratio 2.6 0.0 - 5.0 09/03/2022 12:57 PM [facility] LDL Calculated 98 See Comment mg/dL 09/03/2022 12:57 PM [facility] Comment: Effective 01/09/2022, LDL is calculated [...] APRN LAB BLOOD ORDERABLES Fi nal Result [address] [phone] * (ABNORMAL) Hemoglobin A1c (09/03/2022 9:58 AM EST) Hemoglobin A1c 5.7(H) 4.0 - 5.6 % 09/03/2022 12:34 PM [facility] Comment: Hemoglobin A1c values of [...] Glucose mg/dL 117 mg/dL 09/03/2022 12:34 PM [facility] Comment: Estimated average glucose (eAG) is a calculated value designed to estimate the expected average blood glucose level throughout the day from a single measurement of glycated hemoglobin A1C (HbA1c) and follows the calculation proposed by the [place] [employer] (Diabetes Care 31: 1-6, 2008). It may have less accuracy in children, women and patients with certain erythrocyte disorders. Blood Venipuncture / Unknown 09/03/2022 9:58 AM EST 09/03/2022 9:58 AM EST Ivana Martinez APRN LAB BLOOD ORDERABLES Fi nal Result [address] [phone] * TSH w/reflex to FT4 (BH GH LMW Q YH) (09/03/2022 9:58 AM EST) Thyroid Stimulating Hormone 3.940 See Comment IU/mL 09/03/2022 12:57 PM [facility] Comment: Male & Non- Females: 0.270-4.200 IU/mL 1st Trimester: 0.110-3.480 IU/mL 2nd Trimester: 0.320-3.850 IU/mL Blood Venipuncture / Unknown 09/03/2022 9:58 AM EST 09/03/2022 9:58 AM EST Ivana Martinez APRN LAB BLOOD ORDERABLES Fi nal Result Performing Organization Address [facility]/State/[facility] Co de Phone Number [address] [phone] documented in this encounter Visit Diagnoses Diagnosis Hypertension, unspecified type Hypercalcemia Elevated LFTs Other abnormal blood chemistry Dysuria documented in this encounter Additional Health Concerns Assessment Noted Time PHQ-9 Depression Total Score: 1 09/02/19 23 1:40 PM EST documented as of this encounter Care Teams Fire Marshal Relationship Specialty Start Date End Date Ivana Martinez APRN PCP - General Family Medicine 05/13/22 01/27/24 documented as of this encounter
--- OUTSIDE RECORDS SUMMARY | 2025-06-09 10:51 | XMS_ITS | Encounter Summary ---
Author Organization [facility] Address [address] [place] [address] Care Team Providers Care Coin Wrapping Machine Operator Name Role Phone Ivana Martinez HECTOR Primary Care Provider Reason for Visit * Reason Comments Medication Refill Encounter Details Date Type Department Care Team (Late Contact Info) Description 12/30/2021 Refill [facility] Gastroenterology [facility] [address] [facility] [address] [place], [place] [address] Matthew Huynh MD [address] [place] [address] Medication Refill Social History Tobacco [...] documented as of this encounter Care Teams Coin Wrapping Machine Operator Relationship Specialty Start Date End Date Ivana Martinez APRN PCP - General Family Medicine 05/13/22 01/27/24 documented as of this encounter
--- OUTSIDE RECORDS SUMMARY | 2025-06-09 10:51 | XMS_ITS | Encounter Summary ---
Author Organization [facility] Address [address] [place] [address] Care Team Providers Care Leather Lacer Name Role Phone Ivana Martinez HECTOR Primary Care Provider Reason for Visit * Reason Onset Date Comments Medication Refill 10/29/2021 Encounter Details Date Type Department Care Team (Late st Contact Info) Description 10/29/2021 Refill [facility] Internal Medicine [address] 1st [place] [address] Zoya Clayton MD [address] [place] [phone] Medication Refill Social History Tobacco Use [...] documented as of this encounter Care Teams Leather Lacer Relationship Specialty Start Date End Date Ivana Martinez APRN PCP - General Family Medicine 05/13/22 01/27/24 documented as of this encounter
--- OUTSIDE RECORDS SUMMARY | 2025-06-09 10:51 | XMS_ITS | Encounter Summary ---
Author Organization [facility] Address [address] [place] [address] Care Team Providers Care Laundrette Owner Name Role Phone Andrew Martinezaldo YOUNG Primary Care Provider Reason for Visit * Reason Comments Medication Refill Encounter Details Date Type Department Care Team (Late st Contact Info) Description 06/30/2022 Refill [facility] Internal Medicine [address] [place] [address] Souleymane Wilson DO [address] [place] [place] [phone] Medication Refill Social History Tobacco Use Types [...] documented as of this encounter Care Teams Laundrette Owner Relationship Specialty Start Date End Date Ivana Martinez APRN PCP - General Family Medicine 05/13/22 01/27/24 documented as of this encounter
--- OUTSIDE RECORDS SUMMARY | 2025-06-09 10:51 | XMS_ITS | Encounter Summary ---
Author Organization [facility] Address [address] [place] [address] Care Team Providers Care Lead Technologist In Cytogenetics Name Role Phone Ivana Martinez APRN Primary Care Provider Reason for Visit * Reason Onset Date Comments Medication Refill 10/20/2022 Encounter Details Date Type Department Care Team (Late st Contact Info) Description 10/20/2022 Refill [facility] Family Medicine [place] [address] [place] [address] Ivana Martinez APRN [address] [place] [phone] Medication Refill Social History Tobacco Use [...] documented as of this encounter Care Teams Lead Technologist In Cytogenetics Relationship Specialty Start Date End Date Ivana Martinez APRN PCP - General Family Medicine 05/13/22 01/27/24 documented as of this encounter
--- OUTSIDE RECORDS SUMMARY | 2025-06-09 10:51 | XMS_ITS | Encounter Summary ---
Author Organization [facility] and [facility] Address [address] [place] [address] Care Team Providers Care Ehs Manager Name Role Phone Ivana Martinez HECTOR Primary Care Provider Reason for Visit * Reason Onset Date Comments Medication Refill 05/02/2022 Encounter Details Date Type Department Care Team (Late st Contact Info) Description 05/02/2022 Refill [facility] Internal Medicine [address] 1[address] [place] [address] Zoya Clayton MD [address] [place] [phone] Medication Refill Social History Tobacco Use [...] documented as of this encounter Care Teams Ehs Manager Relationship Specialty Start Date End Date Ivana Martinez APRN PCP - General Family Medicine 05/13/22 01/27/24 documented as of this encounter
--- OUTSIDE RECORDS SUMMARY | 2025-06-09 10:51 | XMS_ITS | Encounter Summary ---
Author Organization [facility] Address [address] [place] [address] Care Team Providers Care Gaming Host Name Role Phone Ivana Martinez APRN Primary Care Provider Encounter Details Date Type Department Care Team (Late st Contact Info) Description 05/13/2022 Transcribed Orders [facility] [address] [place], [place] [address] Ivana Martinez APRN [address] [facility] [address] [place] [address] Hypocalcemia (Primary Dx); Hypertension, unspecified [...] See Comment ng/dL 05/13/2022 2:16 PM EDT [facility] Comment: For patients taking levothyroxine, the [...] AM EDT 05/13/2022 10:46 AM EDT Ivana SoloLearnlilibeth AVIONICS SUPERVISOR LAB BLOOD ORDERABLES Fi nal Result Performing Organization Address City/[facility] Co de Phone Number [address] [phone] * PTH, intact without calcium (05/13/2022 10:46 AM EDT) Parathyroid Hormone, Intact 35.0 15.0 - 65.0 pg/mL 05/13/2022 12:49 PM EDT [facility] Blood Venipuncture / Unknown 05/13/2022 10:46 AM EDT 05/13/2022 10:46 AM EDT Ivanabhavin Martinez AVIONICS SUPERVISOR LAB BLOOD ORDERABLES Fi nal Result [facility] [address] [place] [address], [facility] [phone] * (ABNORMAL) Comprehensive metabolic panel (05/13/2022 10:46 AM EDT) Sodium 138 136 - 144 mmol/L 05/13/2022 1:07 PM [facility] Potassium 3.8 3.3 - 5.3 mmol/L 05/13/2022 1:07 PM [facility] Chloride 98 98 - 107 mmol/L 05/13/2022 1:07 PM [facility] CO2 28 20 - 30 mmol/L 05/13/2022 1:07 PM [facility] Anion Gap 12 7 - 17 05/13/2022 1:07 PM [facility] Glucose 105(H) 70 - 100 mg/dL 05/13/2022 1:07 PM [facility] BUN 6 6 - 20 mg/dL 05/13/2022 1:07 PM [facility] Creatinine 0.78 0.40 - 1.30 mg/dL 05/13/2022 1:07 PM [facility] Calcium 9.6 8.8 - 10.2 mg/dL 05/13/2022 1:07 PM [facility] BUN/Creatinine Ratio 7.7(L) 8.0 - 23.0 05/04 1:07 PM [facility] Total Protein 7.5 6.6 - 8.7 g/dL 05/13/2022 1:07 PM [facility] Albumin 5.2(H) 3.6 - 4.9 g/dL 05/13/2022 1:07 PM [facility] Total Bilirubin 0.5 <=1.2 mg/dL 05/13/20 1:07 PM [facility] Alkaline Phosphatase 81 9 - 122 U/L 05/2022 1:07 PM [facility] Alanine Aminotransferase (ALT) 45 9 - 59 U/L 05/13/2022 1:07 PM [facility] Comment:Calcium dobesilate c an cause artificially low ALT results at therapeutic concentrations Aspartate Aminotransferase (AST) 48(H) 10 - 35 U/L 05/13/2022 1:07 PM EDT [facility] Globulin 2.3 2.3 - 3.5 g/dL 05/13/2022 1:07 PM [facility] A/G Ratio 2.3(H) 1.0 - 2.2 05/13/2022 1:07 PM [facility] AST/ALT Ratio 1.1 See Comment 05/13/2022 1:07 PM [facility] Comment: Adult with mild elevations of transaminases (< 5 times upper limit of normal): AST/ALT > 2 suggests alcoholic liver injury AST/ALT < 1 suggests non-alcoholic fatty liver disease (NAFLD) [place] (healthy): AST/ALT can be > 3 on day 0 AST/ALT < 2 by day 5 The thresholds provided focus on the most common etiologies of elevated serum transaminase levels and the associated alteration of AST:ALT ratios; they are not intended to exclude other feasible and clinically appropriate possibilities eGFR (Creatinine) >60 >=60 mL/min/1.73 m2 05/13/2022 1:07 PM [facility] Comment:Estimated glomerular filtration rate (eGFR) was [...] APRN LAB BLOOD ORDERABLES Fi nal Result [address] [phone] * (ABNORMAL) CBC auto differential (05/13/2022 10:46 AM EDT) WBC 5.5 4.0 - 11.0 x1000/ L 05/13/2022 12:09 PM T [facility] RBC 5.19 4.00 - 6.00 M/ L 05/13/2022 12:09 PM [facility] Hemoglobin 16.6 13.2 - 17.1 g/dL 05/13/2022 12:09 PM [facility] Hematocrit 45.70 38.50 - 50.00 % 05/13/2022 12:09 PM [facility] MCV 88.1 80.0 - 100.0 fL 05/13/2022 12:09 PM [facility] MCH 32.0 27.0 - 33.0 pg 05/13/2022 12:09 PM [facility] MCHC 36.3(H) 31.0 - 36.0 g/dL 05/13/2022 12:09 PM [facility] RDW-CV 12.7 11.0 - 15.0 % 05/13/2022 12:09 PM [facility] Platelets 323 150 - 420 x1000/ L 05/13/2022 12:09 PM [facility] MPV 9.5 8.0 - 12.0 fL 05/13/2022 12:09 PM [facility] Neutrophils 36.5(L) 39.0 - 72.0 % 05/13/2022 12:09 PM [facility] Lymphocytes 42.0 17.0 - 50.0 % 05/13/2022 12:09 PM [facility] Monocytes 9.2 4.0 - 12.0 % 05/13/2022 12:09 PM [facility] Eosinophils 11.2(H) 0.0 - 5.0 % 05/13/2022 12:09 PM [facility] Basophil 1.1 0.0 - 1.4 % 05/13/2022 12:09 PM [facility] Immature Granulocytes 0.0 0.0 - 1.0 % 05/13/2022 12:09 PM [facility] nRBC 0.0 0.0 - 1.0 % 05/13/2022 12:09 PM [facility] ANC(Abs Neutrophil Count) 1.99(L) 2.00 - 7.60 x 1000/ L 05/13/2022 12:09 PM [facility] Absolute Lymphocyte Count 2.29 0.60 - 3.70 x 1000/ L 05/13/2022 12:09 PM [facility] Monocyte Absolute Count 0.50 0.00 - 1.00 x 1000/ L 05/13/2022 12:09 PM EDT [facility] Eosinophil Absolute Count 0.61 0.00 - 1.00 x 1000/ L 05/13/2022 12:09 PM EDT [facility] Basophil Absolute Count 0.06 0.00 - 1.00 x 1000/ L 05/13/2022 12:09 PM EDT [facility] Absolute Immature Granulocyte Count 0.00 0.00 - 0.30 x 1000/ L 05/13/2022 12:09 PM EDT [facility] Absolute nRBC 0.00 0.00 - 1.00 x 1000/ L 05/13/2022 12:09 PM EDT [facility] Blood Venipuncture / Unknown 05/13/2022 10:46 AM EDT 05/13/2022 10:46 AM EDT [facility] AVIONICS SUPERVISOR LAB BLOOD ORDERABLES Fi nal Result [address] [phone] * (ABNORMAL) Thyroid antibody panel ( GH) (05/13/2022 10:46 AM EDT) Thyroid Peroxidase Ab 163(H) 0 - 99 IU/mL 05/15/2022 1:01 PM EDT [facility] Thyroglobulin Ab <10.0 0 - 125 IU/mL 05/15/2022 1:01 PM EDT [facility] Blood Venipuncture / Unknown 05/13/2022 10:46 AM EDT 05/13/2022 10:46 AM EDT Ivana PetAerin Medicalle AVIONICS SUPERVISOR LAB BLOOD ORDERABLES [place] [address], [facility] [phone] * (ABNORMAL) THYROID PEROXIDASE ANTIBODY (05/13/2022 10:46 AM EDT) Thyroid Peroxidase Ab 163(H) 0 - 99 IU/mL 05/15/2022 1:01 PM EDT [facility] Blood Venipuncture / Unknown 05/13/2022 10:46 AM EDT 05/13/2022 10:46 AM EDT Ivana SpencerC[facility] Clinic FoundationN LAB BLOOD ORDERABLES Fi nal Result Performing Organization Address [facility] de Phone Number [address] [phone] * TESTOSTERONE, TOTAL (BH GH L LMW YH) (05/13/2022 10:46 AM EDT) Testosterone, Total 302 229 - 902 ng/dL 05/13/2022 1:18 PM EDT [facility] Comment: The following testosterone reference ranges [...] [place]. J Clin Endocrinol Metab. 2017 Apr 1;102(4):3936-2736. Blood Venipuncture / Unknown 05/13/2022 10:46 AM EDT 05/13/2022 10:46 AM EDT Ivana Martinez APRN LAB BLOOD ORDERABLES Fi nal Result Performing Organization Address [facility]/ZIP Co de Phone Number [address] [phone] * (ABNORMAL) Gamma GT (05/13/2022 10:46 AM EDT) GGT 92(H) <48 U/L 05/13/2022 12:53 PM EDT [facility] Blood Venipuncture / Unknown 05/13/2022 10:46 AM EDT 05/13/2022 10:46 AM EDT [facility] AVIONICS SUPERVISOR LAB BLOOD ORDERABLES Fi nal Result Performing Organization Address [facility] de Phone Number [address] [phone] * (ABNORMAL) Vitamin D, 25-hydroxy (05/13/2022 10:46 AM EDT) Vitamin W92-Etkxvxy 16.9(L) 30.0 - 100.0 ng/mL 05/13/2022 1:47 PM EDT [facility] Comment: Vitamin D Status: Results in ng/mL <10.0: Deficient 10.0 - 29.9: Insufficient 30.0 - 100.0: Sufficient >100: Toxic Reference ranges established by [employer]. Blood Venipuncture / Unknown 05/13/2022 10:46 AM EDT 05/13/2022 10:46 AM EDT Ivana Martinez AVIONICS SUPERVISOR LAB BLOOD ORDERABLES Fi nal Result Performing Organization Address [facility] de Phone Number [address] [phone] * Hepatitis C Ab with reflex to HCV PCR (05/13/2022 10:46 AM EDT) Hepatitis C Ab Initial Result 0.03 S/CO 05/13/2022 1:44 PM EDT [facility] Hepatitis C Ab Interpretation Non-React lilo Non-React lilo 05/13/2022 1:44 PM EDT [facility] Blood Venipuncture / Unknown 05/13/2022 10:46 AM EDT 05/13/2022 10:46 AM EDT Ivana Martinez APRN LAB BLOOD ORDERABLES Fi nal Result [facility] [address] [place] [address], [facility] [phone] * (ABNORMAL) Lipid panel (05/13/2022 10:46 AM EDT) Cholesterol 185 See Comment mg/dL 05/13/2022 1:07 PM [facility] Comment: Total Cholesterol (mg/dL) Adults (>18 years) Children (<18 years) Desirable <200 <170 Borderline-High 200-239 170-199 High >=240 >=200 HDL 63 >=40 mg/dL 05/13/2022 1:07 PM [facility] Triglycerides 268(H) See Comment mg/dL 05/13/2022 1:07 PM [facility] Comment: Triglycerides (mg/dL) Adults (>18 years) Children (<18 years) Desirable <150 Not Established Borderline-High 150-199 Not Established High 200-499 Not Established Chol/HDL Ratio 2.9 0.0 - 5.0 05/13/2022 1:07 PM [facility] LDL Calculated 79 See Comment mg/dL 05/13/2022 1:07 PM [facility] Comment: Effective 01/09/2022, LDL is calculated using the El-KRISTIN equation, which is more accurate than the Friedewald and Gato-Sanchez equations. LDL Cholesterol (mg/dL) Adults (>18 years) Children (<18 years) Desirable <100 <110 Above Desirable 100-129 Not Established Borderline-High 130-159 110-129 High 160-189 >=130 Very High >=190 Not Established Blood Venipuncture / Unknown 05/13/2022 10:46 AM EDT 05/13/2022 10:46 AM EDT [facility] LAB BLOOD ORDERABLES Fi nal Result Performing Organization Address City/[facility]/ZIP Co de Phone Number [address] [phone] * (ABNORMAL) Vitamin B12 (05/13/2022 10:46 AM EDT) Vitamin B12 168(L) 232 - 1,245 pg/mL 05/13/2022 1:40 PM EDT [facility] Blood Venipuncture / Unknown 05/13/2022 10:46 AM EDT 05/13/2022 10:46 AM EDT Ivana [facility]Learn[facility] LAB BLOOD ORDERABLES Fi nal Result Performing Organization Address [facility]/ZIP Co de Phone Number [address] [phone] * (ABNORMAL) Hemoglobin A1c (05/13/2022 10:46 AM EDT) Hemoglobin A1c 5.7(H) 4.0 - 5.6 % 05/13/2022 1:42 PM T [facility] Comment: Hemoglobin A1c values of 5.7-6.4 [...] mg/dL 117 mg/dL 05/13/2022 1:42 PM EDT [facility] Comment: Estimated average glucose (eAG) is a calculated value designed to estimate the expected average blood glucose level throughout the day from a single measurement of glycated hemoglobin A1C (HbA1c) and follows the calculation proposed by the [place] Diabetes Association (Diabetes Care 31: 1-6, 2008). It may have less accuracy in children, women and patients with certain erythrocyte disorders. Blood Venipuncture / Unknown 05/13/2022 10:46 AM EDT 05/13/2022 10:46 AM EDT Ivana Martinez APRN LAB BLOOD ORDERABLES Fi nal Result Performing Organization Address [facility]/ZIP Co de Phone Number [address] [phone] * (ABNORMAL) TSH w/reflex to FT4 (BH GH LMW Q YH) (05/13/2022 10:46 AM EDT) Thyroid Stimulating Hormone 4.470(H) See Comment IU/mL 05/13/2022 1:07 PM EDT [facility] Comment: Male & Non- Females: 0.270-4.200 IU/mL 1st Trimester: 0.110-3.480 IU/mL 2nd Trimester: 0.320-3.850 IU/mL Blood Venipuncture / Unknown 05/13/2022 10:46 AM EDT 05/13/2022 10:46 AM EDT Ivanaaldo Martinez AVIONICS SUPERVISOR LAB BLOOD ORDERABLES Fi nal Result [place] [id number], [facility] [phone] documented in this encounter Visit Diagnoses Diagnosis [...] documented as of this encounter Care Teams Gaming Host Relationship Specialty Start Date End Date Ivana Martinez APRN PCP - General Family Medicine 05/13/22 01/27/24 documented as of this encounter
--- OUTSIDE RECORDS SUMMARY | 2025-06-09 10:51 | XMS_ITS | Encounter Summary ---
Author Organization [facility] Address [address] [place] [address] Care Team Providers Care Event Services Manager Name Role Phone Physician, Pcp Unknown Primary Care Provider Ale vailable Encounter Details Date Type Department Care Team (Late st Contact Info) Description 02/22/2025 Lab Requisition [facility] - Main Lab [address] [place] [address] Selena Ramos MD [address] [place] [address] [place] [address] Tinea corporis Social History Tobacco Use Types [...] after 4 Weeks 03/24/2025 10:59 AM EDT [facility] Skin 02/22/2025 02/22/2025 6:5 8 PM EDT Selena Ramos MD LAB MICROBIOLOGY - GENERAL MONTY HAYDEN Final Result [facility] [address] [place], [place] [address] [phone] documented in this encounter Visit Diagnoses Diagnosis Tinea corporis Dermatophytosis of the body documented in this encounter Care Teams Event Services Manager Relationship Specialty Start Date End Date Physician, Pcp Unknown PCP - General 02/22/25 documented as of this encounter
--- OUTSIDE RECORDS SUMMARY | 2025-06-09 10:51 | XMS_ITS | Encounter Summary ---
Author Organization [facility] Address [address] [place] [address] Care Team Providers Care Selvage Machine Operator Name Role Phone Johannaastondidi Ivana HECTOR Primary Care Provider Encounter Details Date Type Department Care Team (Late st Contact Info) Description 11/19/2021 Scanned Document [facility] Internal Medicine [address], [address] [place], [place] [address] Provider, Historical . Social History Tobacco Use [...] INTERNA L AP EXTERNAL AXILLARY ([facility] Y) Routine 11/17/2021 documented in this [...] documented as of this encounter Care Teams Selvage Machine Operator Relationship Specialty Start Date End Date Ivana Martinez APRN PCP - General Family Medicine 05/13/22 01/27/24 documented as of this encounter
--- OUTSIDE RECORDS SUMMARY | 2025-06-09 10:51 | XMS_ITS | Encounter Summary ---
Author Organization [facility] Address [address] [place] [address] Care Team Providers Care Flower Picker Name Role Phone Ivana Martinez APRN Primary Care Provider Encounter Details Date Type Department Care Team (Late st Contact Info) Description 09/03/2022 Transcribed Orders [place] [facility] [address] [place], [place] [address] Ivana Martinez APRN [address] [facility] [address] [place] [address] Dysuria (Primary Dx) Social History [...] Associated Diagnosis Comments URINE MICROSCOPIC ([facility] LMW YH) Routine 09/03/2022 10:54 AM EST Dysuria URINALYSIS-MACROSCOP IC W/REFLEX MICROSCOPIC Routine 09/03/2022 10:54 AM EST Dysuria C. TRACHOMATIS / N. GONORRHOEAE, NAAT ( GH L LMW YH) Routine 09/03/2022 10:54 AM EST Dysuria NEISSERIA GONORRHEA, NAAT (LAB ORDER ONLY) ([facility] L LMW YH) Routine 09/03/2022 10:54 AM EST Dysuria CHLAMYDIA TRACHOMATIS, NAAT (LAB ORDER ONLY) ([facility] L LMW YH) Routine 09/03/2022 10:54 AM EST Dysuria URINE CULTURE Routine 09/03/2022 10:54 AM EST Dysuria documented in this encounter Results * (ABNORMAL) Urine microscopic ([facility] LMW YH) (09/03/2022 10:54 AM EST) RBC/HPF, UA 6(H) 0 - 2 /HPF 09/03/2022 12:05 PM [facility] WBC/HPF, UA 1 0 - 5 /HPF 09/03/2022 12:05 PM [facility] Bacteria, UA Rare None-Rare /HPF 09/03/2022 12:05 PM [facility] Hyaline Casts, UA 1 0 - 3 /LPF 09/03/2022 12:05 PM [facility] Urine Collection / Unknown 09/03/2022 10:54 AM EST 09/03/2022 10:54 AM EST us Ivana Martinez LEGGER PRESS OPERATOR URINE ORDERABLES Final Result [address] [phone] * Chlamydia trachomatis, NAAT ( GH LMW YH) (09/03/2022 10:54 AM EST) Chlamydia DNA Probe Negative Negative 09/04/2022 11:43 AM [facility] Comment:The Aptima Combo2 As say is not intended for the evaluation of suspected sexual abuse or for other medico-legal indications. Specimen Source Urine (Dirty Catch) for DNA Probe 09/04/2022 11:43 AM [facility] Culture URINE SPECIMEN / Unknown Collection / Unknown 09/03/2022 10:54 AM EST 09/03/2022 10:54 AM EST Ivnaa Martinez APRN MICROBIOLOGY - GENERAL ORDERABLES Final Result Performing Organization Address [facility]/ZIP Co de Phone Number [address] [phone] * Neisseria gonorrhoeae, NAAT ( GH L LMW YH) (09/03/2022 10:54 AM EST) Neisseria gonorrhoeae, DNA Probe Negative Negative 09/04/2022 11:43 AM [facility] Comment:The [employer]pt[employer] Combo2 As say is not intended for the evaluation of suspected sexual abuse or for other medico-legal indications. Specimen Source Urine (Dirty Catch) for DNA Probe 09/04/2022 11:43 AM [facility] Culture URINE SPECIMEN / Unknown Collection / Unknown 09/03/2022 10:54 AM EST 09/03/2022 10:54 AM EST Ivana Martinez APRN MICROBIOLOGY - GENERAL ORDERABLES Final Result Performing Organization Address [facility]/ZIP Co de Phone Number [address] [phone] * (ABNORMAL) Urinalysis-macroscopic w/reflex microscopic (09/03/2022 10:54 AM EST) Clarity, UA Clear Clear 09/03/2022 11:59 AM [facility] Color, UA Yellow Yellow, Colorless 09/03/2022 11:59 AM [facility] Specific [place], UA 1.015 1.005 - 1.030 09/03/2022 11:59 AM [facility] pH, UA 6.5 5.5 - 7.5 09/03/2022 11:59 AM [facility] Protein, UA Negative Negative, Trace 09/03/2022 11:59 AM [facility] Glucose, UA Negative Negative 09/03/2022 11:59 AM [facility] Ketones, UA Negative Negative 09/03/2022 11:59 AM [facility] Blood, UA 2+(A) Negative 09/03/2022 11:59 AM [facility] Bilirubin, UA Negative Negative 09/03/2022 11:59 AM [facility] Leukocytes, UA Negative Negative 09/03/2022 11:59 AM [facility] Nitrite, UA Negative Negative 09/03/2022 11:59 AM [facility] Urobilinogen, UA <2.0 <=2.0 mg/dL 09/03/2022 11:59 AM [facility] Urine Collection / Unknown 09/03/2022 10:54 AM EST 09/03/2022 10:54 AM EST Ivana Martinez LEGGER PRESS OPERATOR URINE ORDERABLES Final Result Performing Organization Address City/[facility]/ZIP Co de Phone Number [address] [phone] * Urine culture (09/03/2022 10:54 AM EST) Urine Culture, Routine No Growth 09/04/2022 1:27 PM [facility] Culture URINE SPECIMEN OBTAINED BY CLEAN CATCH PROCEDURE / Unknown Collection / Unknown 09/03/2022 10:54 AM EST 09/03/2022 10:54 AM EST Ivana Martinez APRN MICROBIOLOGY - GENERAL ORDERABLES Final Result Performing Organization Address [facility]/ZIP Co de Phone Number [address] [phone] documented in this encounter Visit Diagnoses Diagnosis Dysuria- Primary documented in this encounter Additional Health Concerns Assessment Noted Time PHQ-9 Depression Total Score: 1 09/02/19 23 1:40 PM EST documented as of this encounter Care Teams Flower Picker Relationship Specialty Start Date End Date Ivana Martinez APRN PCP - General Family Medicine 05/13/22 01/27/24 documented as of this encounter
--- OUTSIDE RECORDS SUMMARY | 2025-06-09 10:51 | XMS_ITS | Encounter Summary ---
Author Organization [facility] Address [address] [place] [address] Care Team Providers Care Pre K Special Education Teacher Name Role Phone Ivana Martinez HECTOR Primary Care Provider Reason for Visit * Reason Onset Date Comments Medication Refill 05/30/2022 Encounter Details Date Type Department Care Team (Late st Contact Info) Description 05/30/2022 Refill [facility] Internal Medicine [address] [place] [address] Zoya [place] MD [address] [place] [phone] Medication Refill Social History Tobacco Use [...] documented as of this encounter Care Teams Pre K Special Education Teacher Relationship Specialty Start Date End Date Ivana Martinez APRN PCP - General Family Medicine 05/13/22 01/27/24 documented as of this encounter
--- OUTSIDE RECORDS SUMMARY | 2025-06-09 10:51 | XMS_ITS | Encounter Summary ---
Author Organization [facility] Address [address] [place] [address] Care Team Providers Care Mobile Paramedical Examiner Name Role Phone Ivana Martinez HECTOR Primary Care Provider Reason for Visit * Reason Comments Medication Refill Encounter Details Date Type Department Care Team (Late st Contact Info) Description 04/01/2022 Refill [facility] Internal Medicine [address] [place] [address] Zoya [place] MD [facility] [address] [address] Medication Refill Social History [...] documented as of this encounter Care Teams Mobile Paramedical Examiner Relationship Specialty Start Date End Date Ivana Martinez APRN PCP - General Family Medicine 05/13/22 01/27/24 documented as of this encounter
--- OUTSIDE RECORDS SUMMARY | 2025-06-09 10:51 | XMS_ITS | Encounter Summary ---
Author Organization [facility] Address [address] [place] [address] Care Team Providers Care Paper Bag Inspector Name Role Phone Ivana Martinez HECTOR Primary Care Provider Reason for Visit * Reason Onset Date Comments Medication Refill 02/26/2022 Encounter Details Date Type Department Care Team (Late st Contact Info) Description 02/26/2022 Refill [facility] Internal Medicine [address] [place] [address] Zoya [place] MD [address] [place] [phone] Medication Refill Social History Tobacco Use [...] as of this encounter Care Teams Paper Bag Inspector Relationship Specialty Start Date End Date Ivana Martinez APRN PCP - General Family Medicine 05/13/22 01/27/24 documented as of this encounter
[2025-06-09 11:26] LABS: HBS Num1 0.55 mIU/mL (0-7.99); HBc Num1 0.04 S/CO (0.00-0.79); HIV Num 1 0.05 S/CO (0.00-0.99); ~HepC Num1 0.06 S/CO (0.00-0.79); ~Hepatitis B Surface Antibody NONREACTIVE (Nonreactive); ~Hepatitis C Antibody Nonreactive (Nonreactive)
[2025-06-09 11:27] LABS: Syphilis Screen Nonreactive (Nonreactive)
[2025-06-10 06:13] LABS: Hepatitis B Surface Ab Qnt <5 mIU/mL (> OR = 10)
== END ==
LOC: HO.CARD 09:38
PROVIDERS: Absent Provider Internal Medicine; PCP Internal Medicine; Visit Provider Internal Medicine
DX: R07.89 Other chest pain (principal); R21 Rash and other nonspecific skin eruption; Z11.4 Encounter for screening for human immunodeficiency virus [HIV]; Z11.59 Encounter for screening for other viral diseases
CPT/HCPCS: 36415; 86317; 86704; 86706; 86780; 86803; 87389; 93017

== ENCOUNTER → 2025-06-09 09:40 | Outpatient (BNV) | payer OTHER, SELFPAY | PROVIDERS: Absent Provider Internal Medicine; PCP Internal Medicine | DX: R06.02 Shortness of breath (principal); R07.89 Other chest pain | CPT/HCPCS: 93016; 93018 ==

== ENCOUNTER 2025-06-27 10:48 | Outpatient (AMB) | payer OTHER, SELFPAY ==
--- OUTSIDE RECORDS SUMMARY | 2022-10-21 13:14 | XMS_ITS | Encounter Summary ---
Author Organization [facility] Address [address] [place] [address] Care Team Providers Care Services Account Manager Name Role Phone Pcp, No Primary Care Provider Unavailabl e Reason for Referral * Diagnostic Imaging (Routine) - Closed Specialty Diagnoses / Procedures Referred By Christian chatman Referred To Contact Diagnoses Microhematuria Procedures CT Urogram w w/o contrast w/3D Matthew Rodney MD [address] [place] [address] Phone: tel: fax: Referral ID Status Reason Start Date Expiration Date Visits Re quested Visits Authorized [id number] Closed 10/08/2022 12/11/2022 1 1 Reason for Visit * Diagnostic Imaging (Routine) - Closed Specialty Diagnoses / Procedures Referred By Christian chatman Referred To Contact Diagnoses Microhematuria Procedures CT Urogram w w/o contrast w/3D Matthew Rodney MD [address] [place], [place] [id number] Phone: tel: fax: Referral ID Status Reason Start Date Expiration Date Visits Re quested Visits Authorized [id number] Closed 10/08/2022 12/11/2022 1 1 Encounter Details Date Type Department Care Team (Late st Contact Info) Description 10/21/2022 2:14 PM EDT Hospital Encounter [facility] [address] [place] [phone] Microhematuria Social History Tobacco Use Types Packs/Day [...] mL documented in this encounter Care Teams Services Account Manager Relationship Specialty Start Date End Date Pcp, No PCP - General 10/21/22 documented as of this encounter
--- NOTE | 2025-06-27 10:54 | A.OFFVIS_ITS ---
Vital Signs 3 06/27/25 11:01 Height 5 ft 9 in Weight 190 lb BMI 28.1 Pulse 89 Pulse Source Pulse Oximeter Pulse Oximetry (%) 100 Intake Visit Reasons: follow up 1month lab results Allergies No Known Allergies Allergy (Verified 06/27/25 11:02) HPI HPI follow up 1month lab results: Details: He reports taking Voriconazole I don see any new lesions PFSH Medical History Rash B12 deficiency Elevated bilirubin Follow-up exam, 3-6 months since previous exam Alcohol use disorder, mild, abuse Tobacco use disorder Tinea corporis Acquired hypothyroidism Essential hypertension Surgical History No pertinent past surgical history Social History Housing: [facility] Alcohol intake: current Alcohol intake frequency: a few times a week Patient Tobacco Use Status: Current everyday Tobacco user (chewing ) Tobacco use type: Smokeless Tobacco e-Cigarette/Vaping Use: Never Used Second Hand Smoke Exposure: Yes service: No Current occupational status: employed 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 Cognitive needs: No Hearing needs: No Vision needs: No Review of Systems Const All systems reviewed & are unremarkable except as noted in HPI and below Physical Exam Vital Signs: Last Vital Signs Pulse 89 06/27/25 11:01 Pulse Ox 100 06/27/25 11:01 BMI result Body Mass Index 28.1 Const Other: General: cooperative Orientation/consciousness: patient oriented x3 HEENT Head: Yes normal to inspection Mouth: Normal oral and palatal mucosa present Eyes General: appearance normal, both eyes and all related structures Pupils: Equal, round and reactive pupils present Resp Effort & Inspection: normal respiratory effort Cardio Rate: regular rate Rhythm: regular rhythm GI Palpation (GI): Soft to palpation and nontender General: Yes no CVA tenderness Back/Spine/Pelvis Back: no CVA tenderness Skin Other: rash chest scaling,appears more hyperpigmented and old than active Neuro General: patient oriented x3 Cranial nerves: Yes CN's II-XII intact bilaterally and Yes Equal, round and reactive pupils present Extrem General: Yes normal to inspection Psych Appearance: grossly normal Assessment & Plan Assessment & Plan (1) Rash: Comment: Seems to be healing somewhat Code(s): R21 - Rash and other nonspecific skin eruption Category: Medical Plan: Continue voriconazole as long as shows promise 3-4 months (2) Tinea corporis: Code(s): B35.4 - Tinea corporis Category: Medical Plan: n/a Coding Level of Care Code Est Pt Level 3 (54003) Diagnoses Rash R21 Tinea corporis B35.4
[2025-06-27 11:01] VITALS: PULSE 89; O2SAT 100; BMI 28.1
--- OUTSIDE RECORDS SUMMARY | 2025-06-27 13:36 | XMS_ITS | Encounter Summary ---
Author Organization [facility] and Home Health Address [address] [place] [address] Care Team Providers Care Office Equipment Technician Name Role Phone Ivana Martinez HECTOR Primary Care Provider Reason for Visit * Reason Comments Medication Refill Encounter Details Date Type Department Care Team (Late st Contact Info) Description 06/01/2021 Refill NEM Internal Medicine [address], [address]st [place] [address] Zoya Clayton MD [facility] [address] [phone] Medication Refill Social History Tobacco [...] as of this encounter Care Teams Office Equipment Technician Relationship Specialty Start Date End Date Ivana Martinez APRN PCP - General Family Medicine 05/13/22 01/27/24 documented as of this encounter
--- OUTSIDE RECORDS SUMMARY | 2025-06-27 13:36 | XMS_ITS | Encounter Summary ---
Author Organization [facility]up and Home Health Address [address] [place] [address] Care Team Providers Care Supervisor Paper Products Name Role Phone Ivana Martinez HECTOR Primary Care Provider Encounter Details Date Type Department Care Team (Late st Contact Info) Description 11/08/2020 Scanned Document [address] DrShellie GoNogging [facility] [address] [place] [address] External, Provider Social History Tobacco Use [...] as of this encounter Care Teams Supervisor Paper Products Relationship Specialty Start Date End Date Ivana Martinez APRN PCP - General Family Medicine 05/13/22 01/27/24 documented as of this encounter
--- OUTSIDE RECORDS SUMMARY | 2025-06-27 13:36 | XMS_ITS | Encounter Summary ---
Author Organization [facility] and Home Health Address [address] [place] [address] Care Team Providers Care Resin Coater Name Role Phone JohannaAndrew mcelroyhanie HECTOR Primary Care Provider Encounter Details Date Type Department Care Team (Late st Contact Info) Description 09/26/2021 Scanned Document NEM Internal Medicine [address], [address]st [address] [place], [place] [address] External, Provider Social History Tobacco Use Types [...] documented as of this encounter Care Teams Resin Coater Relationship Specialty Start Date End Date Ivana Martinez APRN PCP - General Family Medicine 05/13/22 01/27/24 documented as of this encounter
--- OUTSIDE RECORDS SUMMARY | 2025-06-27 13:36 | XMS_ITS | Clinical Summary ---
Author Organization [address] Address [address] [place] [phone] Care Team Providers Care Dethistler Operator Name Role Phone Unavailable Primary Care [...] 5.6 % 02/26/2023 7:37 PM EDT [facility] Comment: Hemoglobin A1c values of 5.7-6.4 [...] 120 mg/dL 02/26/2023 7:37 PM EDT [facility] Comment: Estimated average glucose (eAG) is [...] nal Result Performing Organization Address [facility]/State/ZIP Co de Phone Number [address] [phone] * Hepatitis C Ab with reflex to HCV PCR (05/13/2022 10:46 AM EDT) Hepatitis C Ab Initial Result 0.03 S/CO 05/13/2022 1:44 PM EDT [facility] Hepatitis C Ab Interpretation Non-React lilo Non-React lilo 05/13/2022 1:44 PM T [facility] Blood Venipuncture / Unknown 05/13/2022 10:46 AM EDT 05/13/2022 10:46 AM EDT us Ivana Martinez CREEL CLERK LAB BLOOD ORDERABLES Fi nal Result [address] [address], [facility] [phone] * Colonoscopy (10/12/2021 7:19 AM EST) Colonoscopy Endoscopy Patient Name: Jay Guillermo Procedure Date: 10/12/2021 7:19 AM Date of : 1985 Age: 36 Gender: Male Admit Type: Outpatient [facility] #: [id number] Note Status: Finalized Attending MD: Matthew Huynh [...] and oxygen saturations were monitored continuously. The [id number] was introduced through the anus and advanced [...] the patient. Procedure Code(s): --- Professional --- 15111, Colonoscopy, flexible; with biopsy, single or multiple Diagnosis Code(s): --- Professional --- K62.89, Other specified diseases of anus and rectum R10.84, Generalized abdominal pain R19.7, Diarrhea, unspecified CPT copyright 2020 [employer]. All rights reserved. The codes documented in this report are preliminary and upon assistant professor of nursing review may be revised to meet current [...] Documents on File Type Date Recorded Patient Requirements Engineer Expl anation Healthcare Requirements Engineer/Po wer of Program Facilitator 03/19/2021 4:27 PM 2020
--- OUTSIDE RECORDS SUMMARY | 2025-06-27 13:36 | XMS_ITS | Encounter Summary ---
Author Organization [facility] Address [address] [place] [address] Care Team Providers Care Crime Victim Specialist Name Role Phone Ivana Martinez APRN Primary Care Provider Encounter Details Date Type Department Care Team (Late st Contact Info) Description 02/26/2023 Orders Only [facility] [address] [place], [place] [phone] Ivana Martinez APRN [address] [place] [address] [address] [place] [address] Hypertension, unspecified type; Hypothyroidism, unspecified [...] - 11.0 x1000/ L 02/26/2023 3:06 PM [facility] RBC 5.06 4.00 - 6.00 M/ L 02/26/2023 3:06 PM [facility] Hemoglobin 16.4 13.2 - 17.1 g/dL 02/26/2023 3:06 PM [facility] Hematocrit 44.90 38.50 - 50.00 % 02/26/2023 3:06 PM [facility] MCV 88.7 80.0 - 100.0 fL 02/26/2023 3:06 PM [facility] MCH 32.4 27.0 - 33.0 pg 02/26/2023 3:06 PM [facility] MCHC 36.5(H) 31.0 - 36.0 g/dL 02/26/2023 3:06 PM [facility] RDW-CV 12.6 11.0 - 15.0 % 02/26/2023 3:06 PM [facility] Platelets 331 150 - 420 x1000/ L 02/26/2023 3:06 PM [facility] MPV 9.8 8.0 - 12.0 fL 02/26/2023 3:06 PM [facility] Neutrophils 42.8 39.0 - 72.0 % 02/26/2023 3:06 PM [facility] Lymphocytes 37.2 17.0 - 50.0 % 02/26/2023 3:06 PM [facility] Monocytes 9.5 4.0 - 12.0 % 02/26/2023 3:06 PM [facility] Eosinophils 8.8(H) 0.0 - 5.0 % 02/26/2023 3:06 PM [facility] Basophil 1.3 0.0 - 1.4 % 02/26/2023 3:06 PM [facility] Immature Granulocytes 0.4 0.0 - 1.0 % 02/26/2023 3:06 PM [facility] nRBC 0.0 0.0 - 1.0 % 02/26/2023 3:06 PM EDT [facility] ANC(Abs Neutrophil Count) 2.30 2.00 - 7.60 x 1000/ L 02/26/2023 3:06 PM T [facility] Absolute Lymphocyte Count 2.00 0.60 - 3.70 x 1000/ L 02/26/2023 3:06 PM T [facility] Monocyte Absolute Count 0.51 0.00 - 1.00 x 1000/ L 02/26/2023 3:06 PM EDT [facility] Eosinophil Absolute Count 0.47 0.00 - 1.00 x 1000/ L 02/26/2023 3:06 PM T [facility] Basophil Absolute Count 0.07 0.00 - 1.00 x 1000/ L 02/26/2023 3:06 PM [facility] Absolute Immature Granulocyte Count 0.02 0.00 - 0.30 x 1000/ L 02/26/2023 3:06 PM [facility] Absolute nRBC 0.00 0.00 - 1.00 x 1000/ L 02/26/2023 3:06 PM [facility] Blood Venipuncture / Unknown 02/26/2023 11:12 AM EDT 02/26/2023 11:12 AM EDT us Ivana Martinez CENTER LEAD CONSULTANT LAB BLOOD ORDERABLES Fi nal Result [address] [phone] * (ABNORMAL) Comprehensive metabolic panel (02/26/2023 11:12 AM EDT) Sodium 140 136 - 144 mmol/L 02/26/2023 3:26 PM EDT [facility] Potassium 4.1 3.3 - 5.3 mmol/L 02/26/2023 3:26 PM T [facility] Chloride 99 98 - 107 mmol/L 02/26/2023 3:26 PM EDT [facility] CO2 30 20 - 30 mmol/L 02/26/2023 3:26 PM T [facility] Anion Gap 11 7 - 17 02/26/2023 3:26 PM [facility] Glucose 96 70 - 100 mg/dL 02/26/2023 3:26 PM [facility] BUN 8 6 - 20 mg/dL 02/26/2023 3:26 PM [facility] Creatinine 0.76 0.40 - 1.30 mg/dL 02/26/2023 3:26 PM [facility] Calcium 10.0 8.8 - 10.2 mg/dL 02/26/2023 3:26 PM [facility] BUN/Creatinine Ratio 10.5 8.0 - 23.0 02/26/2023 3:26 PM [facility] Total Protein 7.7 6.6 - 8.7 g/dL 023 3:26 PM [facility] Albumin 5.0(H) 3.6 - 4.9 g/dL 02/26/2023 3:26 PM [facility] Total Bilirubin 0.4 <=1.2 mg/dL 02/27/20 3:26 PM [facility] Alkaline Phosphatase 57 9 - 122 U/L 02/26/2023 3:26 PM [facility] Alanine Aminotransferase (ALT) 27 9 - 59 U/L 02/26/2023 3:26 PM [facility] Comment:Calcium dobesilate c an cause artificially low ALT results at therapeutic concentrations Aspartate Aminotransferase (AST) 40(H) 10 - 35 U/L 02/26/2023 3:26 PM [facility] Globulin 2.7 2.3 - 3.5 g/dL 02/26/2023 3:26 PM [facility] A/G Ratio 1.9 1.0 - 2.2 02/26/2023 3:26 PM [facility] AST/ALT Ratio 1.5 Reference Range Not Established 02/26/2023 3:26 PM [facility] eGFR (Creatinine) >60 >=60 mL/min/1.73m2 02/26/2023 3:26 PM [facility] Comment: Values < 60 mL/min/1.73 m2 may indicate CKD if present for more than three months AND creatinine is at steady state. The eGFR provides a rough estimate of kidney function. On 03/19/22 all [facility] Clinical [facility] and [facility] began using a umr-xsax-ofkmi formula for estimating GFR called CKD-EPI Creatinine 2020. This equation reports eGFR based on creatinine, patient age, clinical sex, and is standardized to a body surface area of 1.73 m2. For the same creatinine, this new race-free eGFR will be lower than prior reported Black eGFR results and higher than prior Non-Black eGFR results. For further guidance, please refer to the CKD: Adult Employment Interviewer Signature pathway. Blood Venipuncture / Unknown 02/26/2023 11:12 AM EDT 02/26/2023 11:12 AM EDT Ivana Martinez APRN LAB BLOOD ORDERABLES Fi nal Result [address] [phone] * (ABNORMAL) Hemoglobin A1c (02/26/2023 11:12 AM [...] mg/dL 120 mg/dL 02/26/2023 7:37 PM T [facility] Comment: Estimated average glucose (eAG) is a calculated value designed to estimate the expected average blood glucose level throughout the day from a single measurement of glycated hemoglobin A1C (HbA1c) and follows the calculation proposed by the [place] [employer] (Diabetes Care 31: 1-6, 2008). It may have less accuracy in children, women and patients with certain erythrocyte disorders. Blood Venipuncture / Unknown 02/26/2023 11:12 AM EDT 02/26/2023 11:12 AM EDT us Ivana Martinez CENTER LEAD CONSULTANT LAB BLOOD ORDERABLES Fi nal Result Performing Organization Address City/State/[facility] Co de Phone Number [address] [phone] * (ABNORMAL) Lipid panel (02/26/2023 11:12 AM EDT) Cholesterol 180 See Comment mg/dL 02/26/2023 3:26 PM T [facility] Comment: Total Cholesterol (mg/dL) Adults (>18 years) Children (<18 years) Desirable <200 <170 Borderline-High 200-239 170-199 High >=240 >=200 HDL 62 >=40 mg/dL 02/26/2023 3:26 PM T [facility] Triglycerides 161(H) See Comment mg/dL 02/26/2023 3:26 PM [facility] Comment: Triglycerides (mg/dL) Adults (>18 years) Children (<18 years) Desirable <150 Not Established Borderline-High 150-199 Not Established High 200-499 Not Established Chol/HDL Ratio 2.9 0.0 - 5.0 02/26/2023 3:26 PM T [facility] LDL Calculated 91 See Comment mg/dL 02/26/2023 3:26 PM EDT [facility] Comment: Effective 01/09/2022, LDL is calculated using the El-NIH equation, which is more accurate than the Friedewald and Gato-Sanchez equations. LDL Cholesterol (mg/dL) Adults (>18 years) Children (<18 years) Desirable <100 <110 Above Desirable 100-129 Not Established Borderline-High 130-159 110-129 High 160-189 >=130 Very High >=190 Not Established Blood Venipuncture / Unknown 02/26/2023 11:12 AM EDT 02/26/2023 11:12 AM EDT [facility] LAB BLOOD ORDERABLES Fi nal Result Performing Organization Address [facility] Co de Phone Number [address] [phone] * (ABNORMAL) Vitamin D, 25-hydroxy (02/26/2023 11:12 AM EDT) Vitamin A45-Uqkxcau 11.1(L) 30.0 - 100.0 ng/mL 02/27/2023 10:42 AM EDT [facility] Comment: Vitamin D Status: Results in ng/mL <10.0: Deficient 10.0 - 29.9: Insufficient 30.0 - 100.0: Sufficient >100: Toxic Reference ranges established by [employer]. Blood Venipuncture / Unknown 02/26/2023 11:12 AM EDT 02/26/2023 11:12 AM EDT [employer] LAB BLOOD ORDERABLES Fi nal Result Performing Organization Address [facility]/ZIP Co de Phone Number [address] [phone] * (ABNORMAL) Gamma GT (02/26/2023 11:12 AM EDT) GGT 108(H) <48 U/L 02/26/2023 3:26 PM EDT [facility] Blood Venipuncture / Unknown 02/26/2023 11:12 AM EDT 02/26/2023 11:12 AM EDT Ivana Martinez [facility] LAB BLOOD ORDERABLES Fi nal Result Performing Organization Address [facility] Co de Phone Number [address] [phone] * TSH w/reflex to FT4 (BH GH LMW Q YH) (02/26/2023 11:12 AM EDT) Thyroid Stimulating Hormone 2.550 See Comment IU/mL 02/26/2023 3:26 PM EDT [facility] Comment: Male & Non- Females: 0.270-4.200 IU/mL 1st Trimester: 0.110-3.480 IU/mL 2nd Trimester: 0.320-3.850 IU/mL Blood Venipuncture / Unknown 02/26/2023 11:12 AM EDT 02/26/2023 11:12 AM EDT Ivana Martinez CENTER LEAD CONSULTANT LAB BLOOD ORDERABLES Fi nal Result Performing Organization Address [facility]/ZIP Co de Phone Number [address] [phone] documented in this encounter Visit Diagnoses Diagnosis Hypertension, unspecified type Hypothyroidism, unspecified type LFT elevation Other abnormal blood chemistry Vitamin D deficiency Unspecified vitamin D deficiency documented in this encounter Additional Health Concerns Assessment Noted Time PHQ-9 Depression Total Score: 0 02/27/20 23 10:41 AM EDT documented as of this encounter Care Teams Crime Victim Specialist Relationship Specialty Start Date End Date Ivana Martinez APRN PCP - General Family Medicine 05/13/22 01/27/24 documented as of this encounter
--- OUTSIDE RECORDS SUMMARY | 2025-06-27 13:36 | XMS_ITS | Encounter Summary ---
Author Organization [facility] ou and Home Health Address [address] [place] [address] Care Team Providers Care Pattern Keeper Name Role Phone Ivana Martinez HECTOR Primary Care Provider Reason for Visit * Reason Comments Medication Refill Encounter Details Date Type Department Care Team (Late st Contact Info) Description 09/29/2020 Refill N[facility] Family Medicine [address] [place], [place] [phone] Zoya Clayton MD [facility] [address] [address] Medication Refill Social History Tobacco [...] documented as of this encounter Care Teams Pattern Keeper Relationship Specialty Start Date End Date Ivana Martinez APRN PCP - General Family Medicine 05/13/22 01/27/24 documented as of this encounter
--- OUTSIDE RECORDS SUMMARY | 2025-06-27 13:36 | XMS_ITS | Clinical Summary ---
Author Organization [facility] Address [address] [place] [address] Care Team Providers Care Driller Machine Name Role Phone Pcp, No Primary Care [...] Health Maintenance Due Date Last Done Comments HIV Screening 1999 DTaP/Tdap/Td Vaccines (1 - Tdap) 2005 Hepatitis B Vaccines (1 of 3 - 19+ 3-dose series) 2005 Influenza Vaccine 03/04/2025 05/13/2022, 06/06/2021 COVID-19 Vaccine (3 - 2024-2 6 season) 2025 02/03/2021, 01/11/2021 Hepatitis C Virus Screening Completed 05/04, 05/02/2021 HPV Vaccines (No Doses Required) Completed Pneumococcal Vaccine: Pediatric (0-5 Years) and At-Risk Patients (6 to 49 Years) Aged Out No longer eligible b ased on patient's age to complete this topic Insurance [facility] Care Teams Driller Machine Relationship Specialty Start Date End Date Pcp, No PCP - General 10/21/22
--- OUTSIDE RECORDS SUMMARY | 2025-06-27 13:36 | XMS_ITS | Encounter Summary ---
Author Organization [facility]up and Home Health Address [address] [place] [address] Care Team Providers Care Orthopedic Physical Therapist Name Role Phone Andrew Martinezhanie HECTOR Primary Care Provider Encounter Details Date Type Department Care Team (Late st Contact Info) Description 11/13/2020 Scanned Document [facility] Internal Medicine [address] 1st [address] [place], [place] [address] Zoya Clayton MD [facility] [address] [phone] Social History Tobacco Use Types [...] documented as of this encounter Care Teams Orthopedic Physical Therapist Relationship Specialty Start Date End Date Ivana Martinez APRN PCP - General Family Medicine 05/13/22 01/27/24 documented as of this encounter
--- OUTSIDE RECORDS SUMMARY | 2025-06-27 13:37 | XMS_ITS | Encounter Summary ---
Author Organization [facility] oup and Home Health Address [address] [place] [address] Care Team Providers Care Travel Service Consultant Name Role Phone Andrew Martinezhanie HECTOR Primary Care Provider Encounter Details Date Type Department Care Team (Late st Contact Info) Description 09/26/2021 Scanned Document [facility] Internal Medicine [address], 1st [address] [place], [place] [address] Zoya Clayton MD [facility] [address] [address] Social History Tobacco Use [...] documented as of this encounter Care Teams Travel Service Consultant Relationship Specialty Start Date End Date Ivana Martinez APRN PCP - General Family Medicine 05/13/22 01/27/24 documented as of this encounter
--- OUTSIDE RECORDS SUMMARY | 2025-06-27 13:37 | XMS_ITS | Encounter Summary ---
Author Organization [facility] Address [address] [place] [address] Care Team Providers Care Call Center Professional Name Role Phone Ivana Martinez BRICKMASON HELPER Primary Care Provider Reason for Visit * Reason Onset Date Comments Medication Refill 12/17/2022 Encounter Details Date Type Department Care Team (Late st Contact Info) Description 12/17/2022 Refill [facility] Dermatology at [address] [place], [place] [address] Noel Brandon MD [address] [place] [phone] Medication Refill Social History Tobacco Use Types [...] documented as of this encounter Care Teams Call Center Professional Relationship Specialty Start Date End Date Ivana Martinez APRN PCP - General Family Medicine 05/13/22 01/27/24 documented as of this encounter
--- OUTSIDE RECORDS SUMMARY | 2025-06-27 13:37 | XMS_ITS | Encounter Summary ---
Author Organization [facility] oup and Home Health Address [address] [place] [address] Care Team Providers Care Cad Drafter Name Role Phone Andrew Martinezhanie HECTOR Primary Care Provider Encounter Details Date Type Department Care Team (Late st Contact Info) Description 11/17/2021 Scanned Document [facility] Internal Medicine [address] 1st [address] [place], [place] [address] Zoya Clayton MD [facility] [address] [address] Social History Tobacco Use [...] documented as of this encounter Care Teams Cad Drafter Relationship Specialty Start Date End Date Ivana Martinez APRN PCP - General Family Medicine 05/13/22 01/27/24 documented as of this encounter
--- OUTSIDE RECORDS SUMMARY | 2025-06-27 13:37 | XMS_ITS | Encounter Summary ---
Author Organization [facility] oup and Home Health Address [address] [place] [address] Care Team Providers Care Leaf Sticker Name Role Phone Ivana Martinez HECTOR Primary Care Provider Reason for Visit * Reason Onset Date Comments Medication Refill 05/02/2022 Encounter Details Date Type Department Care Team (Late st Contact Info) Description 05/02/[address] [facility] Internal Medicine [address] [place] [address] Zoya Clayton MD [address] [place] [phone] Medication Refill Social History Tobacco Use [...] documented as of this encounter Care Teams Leaf Sticker Relationship Specialty Start Date End Date Ivana Maritnez APRN PCP - General Family Medicine 05/13/22 01/27/24 documented as of this encounter
--- OUTSIDE RECORDS SUMMARY | 2025-06-27 13:37 | XMS_ITS | Encounter Summary ---
Author Organization [facility]up and Home Health Address [address] [place] [address] Care Team Providers Care Hose Sprayer Name Role Phone Ivana Martinez HECTOR Primary Care Provider Reason for Visit * Reason Onset Date Comments Medication Refill 08/28/2022 Encounter Details Date Type Department Care Team (Late st Contact Info) Description 08/28/2022 Refill [facility] Internal Medicine [address], [address] [place] [address] Zoya Clayton MD [address] [place] [phone] Medication Refill Social History Tobacco Use [...] documented as of this encounter Care Teams Hose Sprayer Relationship Specialty Start Date End Date Ivana Martinez APRN PCP - General Family Medicine 05/13/22 01/27/24 documented as of this encounter
--- OUTSIDE RECORDS SUMMARY | 2025-06-27 13:37 | XMS_ITS | Encounter Summary ---
Author Organization [facility] and Home Health Address [address] [place] [address] Care Team Providers Care Ordinary Seaman Name Role Phone Ivana Martinez HECTOR Primary Care Provider Reason for Visit * Reason Onset Date Comments Medication Refill 05/30/2022 Encounter Details Date Type Department Care Team (Late st Contact Info) Description 05/30/2022 Refill [facility] Internal Medicine [address], 1[address] [place] [address] Zoya Clayton MD [address] [place] [phone] Medication Refill Social History Tobacco Use [...] documented as of this encounter Care Teams Ordinary Seaman Relationship Specialty Start Date End Date Ivana Martinez APRN PCP - General Family Medicine 05/13/22 01/27/24 documented as of this encounter
--- OUTSIDE RECORDS SUMMARY | 2025-06-27 13:37 | XMS_ITS | Encounter Summary ---
Author Organization [facility]up and Home Health Address [address] [place] [address] Care Team Providers Care Petrologist Name Role Phone Ivana Martinez HECTOR Primary Care Provider Reason for Visit * Reason Onset Date Comments Medication Refill 07/12/2021 Encounter Details Date Type Department Care Team (Late st Contact Info) Description 07/12/2021 Refill [facility] Internal Medicine [address], 1st [place] [address] Zoya Clayton MD [address] [place] [phone] Medication Refill Social History Tobacco Use [...] documented as of this encounter Care Teams Petrologist Relationship Specialty Start Date End Date Ivana Martinez APRN PCP - General Family Medicine 05/13/22 01/27/24 documented as of this encounter
--- OUTSIDE RECORDS SUMMARY | 2025-06-27 13:37 | XMS_ITS | Encounter Summary ---
Author Organization [facility] Address [address] [place] [address] Care Team Providers Care Button Grader Name Role Phone Ivana Martinez APRN Primary Care Provider Encounter Details Date Type Department Care Team (Late st Contact Info) Description 09/03/2022 Transcribed Orders [place] [facility] - [address] [place], [place] [address] Ivana Martinez APRN [address] [facility] [address] [place] [address] Dysuria (Primary Dx) Social History [...] Diagnosis Comments URINE MICROSCOPIC ([facility] LMW YH) Routine 09/03/2022 10:54 AM EST Dysuria URINALYSIS-MACROSCOP IC W/REFLEX MICROSCOPIC Routine 09/03/2022 10:54 AM EST Dysuria C. TRACHOMATIS / N. GONORRHOEAE, NAAT ( GH L LMW YH) Routine 09/03/2022 10:54 AM EST Dysuria NEISSERIA GONORRHEA, NAAT (LAB ORDER ONLY) ([facility] L LMW YH) Routine 09/03/2022 10:54 AM EST Dysuria CHLAMYDIA TRACHOMATIS, NAAT (LAB ORDER ONLY) ([facility] L LMW YH) Routine 09/03/2022 10:54 AM EST Dysuria URINE CULTURE Routine 09/03/2022 10:54 AM EST Dysuria documented in this encounter Results * (ABNORMAL) Urine microscopic ([facility] LMW YH) (09/03/2022 10:54 AM EST) RBC/HPF, UA 6(H) 0 - 2 /HPF 09/03/2022 12:05 PM [facility] WBC/HPF, UA 1 0 - 5 /HPF 09/03/2022 12:05 PM [facility] Bacteria, UA Rare None-Rare /HPF 09/03/2022 12:05 PM [facility] Hyaline Casts, UA 1 0 - 3 /LPF 09/03/2022 12:05 PM [facility] Urine Collection / Unknown 09/03/2022 10:54 AM EST 09/03/2022 10:54 AM EST us Ivana Martinez CHECKING DEPARTMENT SUPERVISOR URINE ORDERABLES Final Result [address] [phone] * Chlamydia trachomatis, NAAT ( GH LMW YH) (09/03/2022 10:54 AM EST) Chlamydia DNA Probe Negative Negative 09/04/2022 11:43 AM [facility] Comment:The [employer] Combo2 As say is not intended for the evaluation of suspected sexual abuse or for other medico-legal indications. Specimen Source Urine (Dirty Catch) for DNA Probe 09/04/2022 11:43 AM [facility] Culture URINE SPECIMEN / Unknown Collection / Unknown 09/03/2022 10:54 AM EST 09/03/2022 10:54 AM EST Ivana Martinez APRN MICROBIOLOGY - GENERAL ORDERABLES Final Result Performing Organization Address [facility]/ZIP Co de Phone Number [address] [phone] * Neisseria gonorrhoeae, NAAT ( GH L LMW YH) (09/03/2022 10:54 AM EST) Neisseria gonorrhoeae, DNA Probe Negative Negative 09/04/2022 11:43 AM [facility] Comment:The Aptima Combo2 As say is not intended for the evaluation of suspected sexual abuse or for other medico-legal indications. Specimen Source Urine (Dirty Catch) for DNA Probe 09/04/2022 11:43 AM [facility] Culture URINE SPECIMEN / Unknown Collection / Unknown 09/03/2022 10:54 AM EST 09/03/2022 10:54 AM EST Ivana Martinez APRN MICROBIOLOGY - GENERAL ORDERABLES Final Result Performing Organization Address [facility]/ZIP Co de Phone Number [address] [phone] * (ABNORMAL) Urinalysis-macroscopic w/reflex microscopic (09/03/2022 10:54 AM EST) Clarity, UA Clear Clear 09/03/2022 11:59 AM [facility] Color, UA Yellow Yellow, Colorless 09/03/2022 11:59 AM [facility] Specific [place], UA 1.015 1.005 - 1.030 09/03/2022 11:59 AM [facility] pH, UA 6.5 5.5 - 7.5 09/03/2022 11:59 AM [facility] Protein, UA Negative Negative, Trace 09/03/2022 11:59 AM [facility] Glucose, UA Negative Negative 09/03/2022 11:59 AM [facility] Ketones, UA Negative Negative 09/03/2022 11:59 AM [facility] Blood, UA 2+(A) Negative 09/03/2022 11:59 AM [facility] Bilirubin, UA Negative Negative 09/03/2022 11:59 AM [facility] Leukocytes, UA Negative Negative 09/03/2022 11:59 AM [facility] Nitrite, UA Negative Negative 09/03/2022 11:59 AM [facility] Urobilinogen, UA <2.0 <=2.0 mg/dL 09/03/2022 11:59 AM [facility] Urine Collection / Unknown 09/03/2022 10:54 AM EST 09/03/2022 10:54 AM EST Ivana Martinez CHECKING DEPARTMENT SUPERVISOR URINE ORDERABLES Final Result Performing Organization Address City/[facility]/ZIP Co de Phone Number [address] [phone] * Urine culture (09/03/2022 10:54 AM EST) Urine Culture, Routine No Growth 09/04/2022 1:27 PM [facility] Culture URINE SPECIMEN OBTAINED BY CLEAN CATCH PROCEDURE / Unknown Collection / Unknown 09/03/2022 10:54 AM EST 09/03/2022 10:54 AM EST Ivana Martinez APRN MICROBIOLOGY - GENERAL ORDERABLES Final Result Performing Organization Address [facility]/ZIP Co de Phone Number [address] [phone] documented in this encounter Visit Diagnoses Diagnosis Dysuria- Primary documented in this encounter Additional Health Concerns Assessment Noted Time PHQ-9 Depression Total Score: 1 09/02/19 23 1:40 PM EST documented as of this encounter Care Teams Button Grader Relationship Specialty Start Date End Date Ivana Martinez APRN PCP - General Family Medicine 05/13/22 01/27/24 documented as of this encounter
--- OUTSIDE RECORDS SUMMARY | 2025-06-27 13:37 | XMS_ITS | Encounter Summary ---
Author Organization [facility] Address [address] [place] [address] Care Team Providers Care Talent Buyer Name Role Phone Pcp, No Primary Care Provider Unavailabl e Encounter Details Date Type Department Care Team (Late st Contact Info) Description 10/12/2022 Scanned Document [facility] [address] [phone] Matthew Rodney MD [address] [place] [phone] Social History Tobacco Use Types Packs/Day [...] on filedocumented in this encounter Care Teams Talent Buyer Relationship Specialty Start Date End Date Pcp, No PCP - General 10/21/22 documented as of this encounter
--- OUTSIDE RECORDS SUMMARY | 2025-06-27 13:37 | XMS_ITS | Encounter Summary ---
Author Organization [facility]up and Home Health Address [address] [place] [address] Care Team Providers Care Finishing Pan Operator Name Role Phone Ivana Martinez HECTOR Primary Care Provider Reason for Visit * Reason Onset Date Comments Medication Refill 06/25/2022 Encounter Details Date Type Department Care Team (Late st Contact Info) Description 06/25/2022 Refill [facility] Internal Medicine [address], [address]st [place] [address] Zoya Clayton MD [address] [place] [phone] Medication Refill Social History Tobacco Use [...] documented as of this encounter Care Teams Finishing Pan Operator Relationship Specialty Start Date End Date Ivana Martinez APRN PCP - General Family Medicine 05/13/22 01/27/24 documented as of this encounter
--- OUTSIDE RECORDS SUMMARY | 2025-06-27 13:37 | XMS_ITS | Encounter Summary ---
Author Organization [facility]up and Home Health Address [address] [place] [address] Care Team Providers Care Ore Fielder Name Role Phone Ivana Martinez HECTOR Primary Care Provider Reason for Visit * Reason Onset Date Comments Medication Refill 02/26/2022 Encounter Details Date Type Department Care Team (Late st Contact Info) Description 02/26/2022 Refill [facility] Internal Medicine [address]st [place] [address] Zoya Clayton MD [address] [place] [phone] Medication Refill Social History Tobacco Use [...] documented as of this encounter Care Teams Ore Fielder Relationship Specialty Start Date End Date Ivana Martinez APRN PCP - General Family Medicine 05/13/22 01/27/24 documented as of this encounter
--- OUTSIDE RECORDS SUMMARY | 2025-06-27 13:37 | XMS_ITS | Encounter Summary ---
Author Organization [facility] oup and Home Health Address [address] [place] [address] Care Team Providers Care Elevator Technician Name Role Phone Ivana Martinez HECTOR Primary Care Provider Reason for Visit * Reason Comments Medication Refill Encounter Details Date Type Department Care Team (Late st Contact Info) Description 04/01/2022 Refill [facility] Internal Medicine [address] [place] [address] Zoya Clayton MD [facility] [phone] Medication Refill Social History Tobacco [...] documented as of this encounter Care Teams Elevator Technician Relationship Specialty Start Date End Date Ivana Martinez APRN PCP - General Family Medicine 05/13/22 01/27/24 documented as of this encounter
--- OUTSIDE RECORDS SUMMARY | 2025-06-27 13:37 | XMS_ITS | Encounter Summary ---
Author Organization [facility] oup and Home Health Address [address] [place] [address] Care Team Providers Care Insurance Analyst Name Role Phone Ivana Martinez HECTOR Primary Care Provider Reason for Visit * Reason Onset Date Comments Medication Refill 10/29/2021 Encounter Details Date Type Department Care Team (Late st Contact Info) Description 10/29/2021 Refill [facility] Internal Medicine [address], 1st [place] [address] Zoya Clayton MD [address] [place] [phone] Medication Refill Social History Tobacco Use [...] as of this encounter Care Teams Insurance Analyst Relationship Specialty Start Date End Date Ivana Martinez APRN PCP - General Family Medicine 05/13/22 01/27/24 documented as of this encounter
--- OUTSIDE RECORDS SUMMARY | 2025-06-27 13:37 | XMS_ITS | Encounter Summary ---
Author Organization [facility] Address [address] [place] [address] Care Team Providers Care Sheet Manager Name Role Phone Ivana Martinez APRN Primary Care Provider Encounter Details Date Type Department Care Team (Late st Contact Info) Description 05/13/2022 Transcribed Orders [place] [facility] - [address] [place], [place] [address] Ivana Martinez APRN 477 [facility] [address] [place] [address] Hypocalcemia (Primary Dx); Hypertension, unspecified [...] See Comment ng/dL 05/13/2022 2:16 PM EDT [facility] Comment: For patients taking levothyroxine, the [...] AM EDT 05/13/2022 10:46 AM EDT Ivana [email or web address] SUPERVISOR METAL CANS LAB BLOOD ORDERABLES Fi nal Result Performing Organization Address City/[facility] Co de Phone Number [address] [phone] * PTH, intact without calcium (05/13/2022 10:46 AM EDT) Parathyroid Hormone, Intact 35.0 15.0 - 65.0 pg/mL 05/13/2022 12:49 PM EDT [facility] Blood Venipuncture / Unknown 05/13/2022 10:46 AM EDT 05/13/2022 10:46 AM EDT Ivanabhavin Martinez SUPERVISOR METAL CANS LAB BLOOD ORDERABLES Fi nal Result [facility] [address] [place] [address], [facility] [phone] * (ABNORMAL) Comprehensive metabolic panel (05/13/2022 10:46 AM EDT) Sodium 138 136 - 144 mmol/L 05/13/2022 1:07 PM [facility] Potassium 3.8 3.3 - 5.3 mmol/L 05/13/2022 1:07 PM [facility] Chloride 98 98 - 107 mmol/L 05/13/2022 1:07 PM [facility] CO2 28 20 - 30 mmol/L 05/13/2022 1:07 PM [facility] Anion Gap 12 7 - 17 05/13/2022 1:07 PM [facility] Glucose 105(H) 70 - 100 mg/dL 05/13/2022 1:07 PM [facility] BUN 6 6 - 20 mg/dL 05/13/2022 1:07 PM [facility] Creatinine 0.78 0.40 - 1.30 mg/dL 05/13/2022 1:07 PM [facility] Calcium 9.6 8.8 - 10.2 mg/dL 05/13/2022 1:07 PM [facility] BUN/Creatinine Ratio 7.7(L) 8.0 - 23.0 05/04 1:07 PM [facility] Total Protein 7.5 6.6 - 8.7 g/dL 05/13/2022 1:07 PM [facility] Albumin 5.2(H) 3.6 - 4.9 g/dL 05/13/2022 1:07 PM [facility] Total Bilirubin 0.5 <=1.2 mg/dL 05/13/20 1:07 PM [facility] Alkaline Phosphatase 81 9 - 122 U/L 05/2022 1:07 PM [facility] Alanine Aminotransferase (ALT) 45 9 - 59 U/L 05/13/2022 1:07 PM [facility] Comment:Calcium dobesilate c an cause artificially low ALT results at therapeutic concentrations Aspartate Aminotransferase (AST) 48(H) 10 - 35 U/L 05/13/2022 1:07 PM EDT [facility] Globulin 2.3 2.3 - 3.5 g/dL 05/13/2022 1:07 PM [facility] A/G Ratio 2.3(H) 1.0 - 2.2 05/13/2022 1:07 PM [facility] AST/ALT Ratio 1.1 See Comment 05/13/2022 1:07 PM [facility] Comment: Adult with mild elevations of transaminases (< 5 times upper limit of normal): AST/ALT > 2 suggests alcoholic liver injury AST/ALT < 1 suggests non-alcoholic fatty liver disease (NAFLD) [place] (healthy): AST/ALT can be > 3 on day 0 AST/ALT < 2 by day 5 The thresholds provided focus on the most common etiologies of elevated serum transaminase levels and the associated alteration of AST:ALT ratios; they are not intended to exclude other feasible and clinically appropriate possibilities eGFR (Creatinine) >60 >=60 mL/min/1.73 m2 05/13/2022 1:07 PM [facility] Comment:Estimated glomerular filtration [...] APRN LAB BLOOD ORDERABLES Fi nal Result [address] [phone] * (ABNORMAL) CBC auto differential (05/13/2022 10:46 AM EDT) WBC 5.5 4.0 - 11.0 x1000/ L 05/13/2022 12:09 PM T [facility] RBC 5.19 4.00 - 6.00 M/ L 05/13/2022 12:09 PM [facility] Hemoglobin 16.6 13.2 - 17.1 g/dL 05/13/2022 12:09 PM [facility] Hematocrit 45.70 38.50 - 50.00 % 05/13/2022 12:09 PM [facility] MCV 88.1 80.0 - 100.0 fL 05/13/2022 12:09 PM [facility] MCH 32.0 27.0 - 33.0 pg 05/13/2022 12:09 PM [facility] MCHC 36.3(H) 31.0 - 36.0 g/dL 05/13/2022 12:09 PM [facility] RDW-CV 12.7 11.0 - 15.0 % 05/13/2022 12:09 PM [facility] Platelets 323 150 - 420 x1000/ L 05/13/2022 12:09 PM [facility] MPV 9.5 8.0 - 12.0 fL 05/13/2022 12:09 PM [facility] Neutrophils 36.5(L) 39.0 - 72.0 % 05/13/2022 12:09 PM [facility] Lymphocytes 42.0 17.0 - 50.0 % 05/13/2022 12:09 PM [facility] Monocytes 9.2 4.0 - 12.0 % 05/13/2022 12:09 PM [facility] Eosinophils 11.2(H) 0.0 - 5.0 % 05/13/2022 12:09 PM [facility] Basophil 1.1 0.0 - 1.4 % 05/13/2022 12:09 PM [facility] Immature Granulocytes 0.0 0.0 - 1.0 % 05/13/2022 12:09 PM [facility] nRBC 0.0 0.0 - 1.0 % 05/13/2022 12:09 PM [facility] ANC(Abs Neutrophil Count) 1.99(L) 2.00 - 7.60 x 1000/ L 05/13/2022 12:09 PM [facility] Absolute Lymphocyte Count 2.29 0.60 - 3.70 x 1000/ L 05/13/2022 12:09 PM [facility] Monocyte Absolute Count 0.50 0.00 - 1.00 x 1000/ L 05/13/2022 12:09 PM EDT [facility] Eosinophil Absolute Count 0.61 0.00 - 1.00 x 1000/ L 05/13/2022 12:09 PM EDT [facility] Basophil Absolute Count 0.06 0.00 - 1.00 x 1000/ L 05/13/2022 12:09 PM EDT [facility] Absolute Immature Granulocyte Count 0.00 0.00 - 0.30 x 1000/ L 05/13/2022 12:09 PM EDT [facility] Absolute nRBC 0.00 0.00 - 1.00 x 1000/ L 05/13/2022 12:09 PM EDT [facility] Blood Venipuncture / Unknown 05/13/2022 10:46 AM EDT 05/13/2022 10:46 AM EDT Ivana [facility] SUPERVISOR METAL CANS LAB BLOOD ORDERABLES Fi nal Result [address] [phone] * (ABNORMAL) Thyroid antibody panel ( GH) (05/13/2022 10:46 AM EDT) Thyroid Peroxidase Ab 163(H) 0 - 99 IU/mL 05/15/2022 1:01 PM EDT [facility] Thyroglobulin Ab <10.0 0 - 125 IU/mL 05/15/2022 1:01 PM EDT [facility] Blood Venipuncture / Unknown 05/13/2022 10:46 AM EDT 05/13/2022 10:46 AM EDT Ivana PetSepatonle SUPERVISOR METAL CANS LAB BLOOD ORDERABLES [place] [address], [facility] [phone] * (ABNORMAL) THYROID PEROXIDASE ANTIBODY (05/13/2022 10:46 AM EDT) Thyroid Peroxidase Ab 163(H) 0 - 99 IU/mL 05/15/2022 1:01 PM EDT [facility] Blood Venipuncture / Unknown 05/13/2022 10:46 AM EDT 05/13/2022 10:46 AM EDT Ivana [facility] LAB BLOOD ORDERABLES Fi nal Result Performing Organization Address [facility] de Phone Number [address] [phone] * TESTOSTERONE, TOTAL (BH GH L LMW YH) (05/13/2022 10:46 AM EDT) Testosterone, Total 302 229 - 902 ng/dL 05/13/2022 1:18 PM EDT [facility] Comment: The following testosterone reference ranges [...] [place]. J Clin Endocrinol Metab. 2017 Apr 1;102(4):4863-8456. Blood Venipuncture / Unknown 05/13/2022 10:46 AM EDT 05/13/2022 10:46 AM EDT Ivana Martinez APRN LAB BLOOD ORDERABLES Fi nal Result Performing Organization Address [facility]/ZIP Co de Phone Number [address] [phone] * (ABNORMAL) Gamma GT (05/13/2022 10:46 AM EDT) GGT 92(H) <48 U/L 05/13/2022 12:53 PM EDT [facility] Blood Venipuncture / Unknown 05/13/2022 10:46 AM EDT 05/13/2022 10:46 AM EDT [facility] SUPERVISOR METAL CANS LAB BLOOD ORDERABLES Fi nal Result Performing Organization Address [facility] de Phone Number [address] [phone] * (ABNORMAL) Vitamin D, 25-hydroxy (05/13/2022 10:46 AM EDT) Vitamin F30-Wxpvyyw 16.9(L) 30.0 - 100.0 ng/mL 05/13/2022 1:47 PM EDT [facility] Comment: Vitamin D Status: Results in ng/mL <10.0: Deficient 10.0 - 29.9: Insufficient 30.0 - 100.0: Sufficient >100: Toxic Reference ranges established by [employer]. Blood Venipuncture / Unknown 05/13/2022 10:46 AM EDT 05/13/2022 10:46 AM EDT Ivana Martinez SUPERVISOR METAL CANS LAB BLOOD ORDERABLES Fi nal Result Performing Organization Address [facility] de Phone Number [address] [phone] * Hepatitis C Ab with reflex to HCV PCR (05/13/2022 10:46 AM EDT) Hepatitis C Ab Initial Result 0.03 S/CO 05/13/2022 1:44 PM EDT [facility] Hepatitis C Ab Interpretation Non-React lilo Non-React lilo 05/13/2022 1:44 PM EDT [facility] Blood Venipuncture / Unknown 05/13/2022 10:46 AM EDT 05/13/2022 10:46 AM EDT Ivana Martinez APRN LAB BLOOD ORDERABLES Fi nal Result [facility] [address] [place] [address], [facility] [phone] * (ABNORMAL) Lipid panel (05/13/2022 10:46 AM EDT) Cholesterol 185 See Comment mg/dL 05/13/2022 1:07 PM [facility] Comment: Total Cholesterol (mg/dL) Adults (>18 years) Children (<18 years) Desirable <200 <170 Borderline-High 200-239 170-199 High >=240 >=200 HDL 63 >=40 mg/dL 05/13/2022 1:07 PM [facility] Triglycerides 268(H) See Comment mg/dL 05/13/2022 1:07 PM [facility] Comment: Triglycerides (mg/dL) Adults (>18 years) Children (<18 years) Desirable <150 Not Established Borderline-High 150-199 Not Established High 200-499 Not Established Chol/HDL Ratio 2.9 0.0 - 5.0 05/13/2022 1:07 PM [facility] LDL Calculated 79 See Comment mg/dL 05/13/2022 1:07 PM [facility] Comment: Effective 01/09/2022, [...] 10:46 AM EDT 05/13/2022 10:46 AM EDT [facility] LAB BLOOD ORDERABLES Fi nal Result Performing Organization Address City/[facility]/ZIP Co de Phone Number [address] [phone] * (ABNORMAL) Vitamin B12 (05/13/2022 10:46 AM EDT) Vitamin B12 168(L) 232 - 1,245 pg/mL 05/13/2022 1:40 PM EDT [facility] Blood Venipuncture / Unknown 05/13/2022 10:46 AM EDT 05/13/2022 10:46 AM EDT [email or web address] [email or web address] LAB BLOOD ORDERABLES Fi nal Result Performing Organization Address [facility]/ZIP Co de Phone Number [address] [phone] * (ABNORMAL) Hemoglobin A1c (05/13/2022 10:46 AM EDT) Hemoglobin A1c 5.7(H) 4.0 - 5.6 % 05/13/2022 1:42 PM T [facility] Comment: Hemoglobin A1c values [...] mg/dL 117 mg/dL 05/13/2022 1:42 PM EDT [facility] Comment: Estimated average glucose (eAG) is a calculated value designed to estimate the expected average blood glucose level throughout the day from a single measurement of glycated hemoglobin A1C (HbA1c) and follows the calculation proposed by the [place] [employer] (Diabetes Care 31: 1-6, 2008). It may have less accuracy in children, women and patients with certain erythrocyte disorders. Blood Venipuncture / Unknown 05/13/2022 10:46 AM EDT 05/13/2022 10:46 AM EDT Ivana Martinez APRN LAB BLOOD ORDERABLES Fi nal Result Performing Organization Address [facility]/ZIP Co de Phone Number [address] [phone] * (ABNORMAL) TSH w/reflex to FT4 (BH GH LMW Q YH) (05/13/2022 10:46 AM EDT) Thyroid Stimulating Hormone 4.470(H) See Comment IU/mL 05/13/2022 1:07 PM EDT [facility] Comment: Male & Non- Females: 0.270-4.200 IU/mL 1st Trimester: 0.110-3.480 IU/mL 2nd Trimester: 0.320-3.850 IU/mL Blood Venipuncture / Unknown 05/13/2022 10:46 AM EDT 05/13/2022 10:46 AM EDT Ivanaaldo Martinez SUPERVISOR METAL CANS LAB BLOOD ORDERABLES Fi nal Result [place] [id number], [facility] [phone] documented in this encounter Visit Diagnoses Diagnosis [...] documented as of this encounter Care Teams Sheet Manager Relationship Specialty Start Date End Date Ivana Martinez APRN PCP - General Family Medicine 05/13/22 01/27/24 documented as of this encounter
--- OUTSIDE RECORDS SUMMARY | 2025-06-27 13:37 | XMS_ITS | Encounter Summary ---
Author Organization [facility] Address [address] [place] [address] Care Team Providers Care Functional Architect Name Role Phone Andrew Martinezhanie HECTOR Primary Care Provider Encounter Details Date Type Department Care Team (Late st Contact Info) Description 08/22/2021 Scanned Document NEM Internal Medicine [address], 1st [place], [place] [address] Zoya Clayton MD [facility] [address] [phone] Social History Tobacco Use [...] documented as of this encounter Care Teams Functional Architect Relationship Specialty Start Date End Date Ivana Martinez APRN PCP - General Family Medicine 05/13/22 01/27/24 documented as of this encounter
--- OUTSIDE RECORDS SUMMARY | 2025-06-27 13:37 | XMS_ITS | Encounter Summary ---
Author Organization [facility] Address [address] [place] [address] Care Team Providers Care Social Media Marketer Name Role Phone Ivana Martinez HECTOR Primary Care Provider Reason for Visit * Reason Comments Medication Refill Encounter Details Date Type Department Care Team (Late st Contact Info) Description 06/20/2021 Refill N[facility] Internal Medicine [address], [address] [place] [address] Zoya Clayton MD [facility] [address] [phone] Medication Refill Social History Tobacco [...] documented as of this encounter Care Teams Social Media Marketer Relationship Specialty Start Date End Date Ivana Martinez APRN PCP - General Family Medicine 05/13/22 01/27/24 documented as of this encounter
--- OUTSIDE RECORDS SUMMARY | 2025-06-27 13:37 | XMS_ITS | Encounter Summary ---
Author Organization [facility] Address [address] [place] [address] Care Team Providers Care Frame Aligner Name Role Phone Ivana Martinez HECTOR Primary Care Provider Encounter Details Date Type Department Care Team (Late st Contact Info) Description 10/12/2021 Scanned Document [facility] Gastroenterology [facility] [address] [place], [place] [address] Matthew Huynh MD [address] [place] [address] Social History Tobacco Use Types [...] documented as of this encounter Care Teams Frame Aligner Relationship Specialty Start Date End Date Ivana Martinez APRN PCP - General Family Medicine 05/13/22 01/27/24 documented as of this encounter
--- OUTSIDE RECORDS SUMMARY | 2025-06-27 13:37 | XMS_ITS | Encounter Summary ---
Author Organization [facility] Address [address] [place] [address] Care Team Providers Care Carpenter Refrigerator Name Role Phone Andrew Martinezhanie HECTRO Primary Care Provider Reason for Visit * Reason Comments Medication Refill Encounter Details Date Type Department Care Team (Late st Contact Info) Description 06/22/2022 Refill [facility] Internal Medicine [address], [address] [place] [address] Zoya Clayton MD [facility] [address] [address] Medication Refill Social History Tobacco [...] documented as of this encounter Care Teams Carpenter Refrigerator Relationship Specialty Start Date End Date Ivana Martinez APRN PCP - General Family Medicine 05/13/22 01/27/24 documented as of this encounter
--- OUTSIDE RECORDS SUMMARY | 2025-06-27 13:37 | XMS_ITS | Encounter Summary ---
Author Organization [facility] Address [address] [place] [address] Care Team Providers Care Customer Support Consultant Name Role Phone Andrew Martinezaldo YOUNG Primary Care Provider Reason for Visit * Reason Comments Medication Refill Encounter Details Date Type Department Care Team (Late st Contact Info) Description 06/30/2022 Refill [facility] Internal Medicine [address], [address] [place] [address] Souleymane [place] DO [address] [place] [phone] Medication Refill Social History Tobacco Use Types [...] documented as of this encounter Care Teams Customer Support Consultant Relationship Specialty Start Date End Date Ivana Martinez APRN PCP - General Family Medicine 05/13/22 01/27/24 documented as of this encounter
--- OUTSIDE RECORDS SUMMARY | 2025-06-27 13:37 | XMS_ITS | Encounter Summary ---
Author Organization [facility] and [facility] Address [address] [place] [address] Care Team Providers Care Medical Device Assembler Name Role Phone Ivana Martinez SOFTWARE SYSTEMS ENGINEER Primary Care Provider Encounter Details Date Type Department Care Team (Late st Contact Info) Description 05/05/2019 Scanned Document Scarlet Espinosa M.D. [address] [facility] [address] [place] [address] Jeffy Espinosa MD [address] [place] [phone] Social History Tobacco Use Types Packs/Day [...] as of this encounter Care Teams Medical Device Assembler Relationship Specialty Start Date End Date Ivana Martinez APRN PCP - General Family Medicine 05/13/22 01/27/24 documented as of this encounter
--- OUTSIDE RECORDS SUMMARY | 2025-06-27 13:37 | XMS_ITS | Encounter Summary ---
Author Organization [facility] Address [address] [place] [address] Care Team Providers Care Executive Vice President Business Development Name Role Phone Ivana Martinez APRN Primary Care Provider Encounter Details Date Type Department Care Team (Late st Contact Info) Description 09/03/2022 Orders Only [facility] Family Medicine [address] [place], [place] [phone] Ivana Martinez APRN [address] [place] [address] [address] [place] [address] Hypertension, unspecified type; Hypercalcemia; Elevated [...] 136 - 144 mmol/L 09/03/2022 12:57 PM [facility] Potassium 4.0 3.3 - 5.3 mmol/L 09/03/2022 12:57 PM [facility] Chloride 97(L) 98 - 107 mmol/L 09/03/2022 12:57 PM [facility] CO2 29 20 - 30 mmol/L 09/03/2022 12:57 PM [facility] Anion Gap 12 7 - 17 09/03/2022 12:57 PM [facility] Glucose 116(H) 70 - 100 mg/dL 09/03/2022 12:57 PM [facility] BUN 8 6 - 20 mg/dL 09/03/2022 12:57 PM [facility] Creatinine 0.86 0.40 - 1.30 mg/dL 09/03/2022 12:57 PM [facility] Calcium 9.5 8.8 - 10.2 mg/dL 09/03/2022 12:57 PM [facility] BUN/Creatinine Ratio 9.3 8.0 - 23.0 08/06 12:57 PM [facility] Total Protein 7.4 6.6 - 8.7 g/dL 09/03/2022 12:57 PM [facility] Albumin 5.0(H) 3.6 - 4.9 g/dL 09/03/2022 12:57 PM [facility] Total Bilirubin 1.0 <=1.2 mg/dL 09/03/19 12:57 PM [facility] Alkaline Phosphatase 70 9 - 122 U/L 12:57 PM [facility] Alanine Aminotransferase (ALT) 60(H) 9 - 59 U/L 09/03/2022 12:57 PM [facility] Comment:Calcium dobesilate c an cause artificially low ALT results at therapeutic concentrations Aspartate Aminotransferase (AST) 66(H) 10 - 35 U/L 09/03/2022 12:57 PM [facility] Globulin 2.4 2.3 - 3.5 g/dL 09/03/2022 12:57 PM [facility] A/G Ratio 2.1 1.0 - 2.2 09/03/2022 12:57 PM [facility] AST/ALT Ratio 1.1 See Comment 09/03/2022 12:57 PM [facility] Comment: Adult with mild elevations of [...] >60 >=60 mL/min/1.73 m2 09/03/2022 12:57 PM [facility] Comment:Estimated glomerular filtration rate (eGFR) was [...] 09/03/2022 9:58 AM EST us Ivana Martinez PUBLIC RELATIONS ASSOCIATE LAB BLOOD ORDERABLES Fi nal Result [address] [phone] * (ABNORMAL) CBC auto differential (09/03/2022 9:58 AM EST) WBC 6.2 4.0 - 11.0 x1000/ L 09/03/2022 12:01 PM [facility] RBC 5.11 4.00 - 6.00 M/ L 09/03/2022 12:01 PM [facility] Hemoglobin 16.5 13.2 - 17.1 g/dL 09/03/2022 12:01 [facility] Hematocrit 47.30 38.50 - 50.00 % 09/03/2022 12:01 [facility] MCV 92.6 80.0 - 100.0 fL 09/03/2022 12:01 [facility] MCH 32.3 27.0 - 33.0 pg 09/03/2022 12:01 PM [facility] MCHC 34.9 31.0 - 36.0 g/dL 09/03/2022 12:01 [facility] RDW-CV 12.7 11.0 - 15.0 % 09/03/2022 12:01 PM [facility] Platelets 278 150 - 420 x1000/ L 09/03/2022 12:01 PM [facility] MPV 10.2 8.0 - 12.0 fL 09/03/2022 12:01 [facility] Neutrophils 40.9 39.0 - 72.0 % 09/03/2022 12:01 PM [facility] Lymphocytes 39.7 17.0 - 50.0 % 09/03/2022 12:01 [facility] Monocytes 8.8 4.0 - 12.0 % 09/03/2022 12:01 [facility] Eosinophils 9.3(H) 0.0 - 5.0 % 09/03/2022 12:01 [facility] Basophil 1.1 0.0 - 1.4 % 09/03/2022 12:01 [facility] Immature Granulocytes 0.2 0.0 - 1.0 % 09/03/2022 12:01 PM [facility] nRBC 0.0 0.0 - 1.0 % 09/03/2022 12:01 [facility] ANC(Abs Neutrophil Count) 2.55 2.00 - 7.60 x 1000/ L 09/03/2022 12:01 [facility] Absolute Lymphocyte Count 2.48 0.60 - 3.70 x 1000/ L 09/03/2022 12:01 PM [facility] Monocyte Absolute Count 0.55 0.00 - 1.00 x 1000/ L 09/03/2022 12:01 PM [facility] Eosinophil Absolute Count 0.58 0.00 - 1.00 x 1000/ L 09/03/2022 12:01 PM [facility] Basophil Absolute Count 0.07 0.00 - 1.00 x 1000/ L 09/03/2022 12:01 PM [facility] Absolute Immature Granulocyte Count 0.01 0.00 - 0.30 x 1000/ L 09/03/2022 12:01 PM [facility] Absolute nRBC 0.00 0.00 - 1.00 x 1000/ L 09/03/2022 12:01 PM [facility] Blood Venipuncture / Unknown 09/03/2022 9:58 AM EST 09/03/2022 9:58 AM EST Ivana Petastonle PUBLIC RELATIONS ASSOCIATE LAB BLOOD ORDERABLES Fi nal Result Performing Organization Address [facility]/ZIP Co de Phone Number [address] [phone] * Treponema pallidum (syphilis) antibody w/reflex (09/03/2022 9:58 AM EST) Treponema pallidum Ab Index <0.100 <0.9 Index 09/03/2022 1:38 PM [facility] Treponema pallidum Antibody Total, Serum Non-Reacti ve Non-Reacti ve 09/03/2022 1:38 PM [facility] Blood Venipuncture / Unknown 09/03/2022 9:58 AM EST 09/03/2022 9:58 AM EST us Ivana Petastonle PUBLIC RELATIONS ASSOCIATE LAB BLOOD ORDERABLES Fi nal Result Performing Organization Address [facility]/ZIP Co de Phone Number [address] [phone] * (ABNORMAL) Gamma GT (09/03/2022 9:58 AM EST) GGT 133(H) <48 U/L 09/03/2022 12:57 PM [facility] Blood Venipuncture / Unknown 09/03/2022 9:58 AM EST 09/03/2022 9:58 AM EST Ivana Petastonle PUBLIC RELATIONS ASSOCIATE LAB BLOOD ORDERABLES Fi nal Result Performing Organization Address [facility] Phone Number [address] [phone] * (ABNORMAL) Vitamin D, 25-hydroxy (09/03/2022 9:58 AM EST) Vitamin C31-Pxniazr 12.1(L) 30.0 - 100.0 ng/mL 09/03/2022 1:55 PM [facility] Comment: Vitamin D Status: Results in ng/mL <10.0: Deficient 10.0 - 29.9: Insufficient 30.0 - 100.0: Sufficient >100: Toxic Reference ranges established by [email or web address]. Blood Venipuncture / Unknown 09/03/2022 9:58 AM EST 09/03/2022 9:58 AM EST Ivanabhavin Lesliele PUBLIC RELATIONS ASSOCIATE LAB BLOOD ORDERABLES Fi nal Result Performing Organization Address [facility] Phone Number [address] [phone] * (ABNORMAL) Lipid panel (09/03/2022 9:58 AM EST) Cholesterol 201(H) See Comment mg/dL 09/03/2022 12:57 PM [facility] Comment: Total Cholesterol (mg/dL) Adults (>18 years) Children (<18 years) Desirable <200 <170 Borderline-High 200-239 170-199 High >=240 >=200 HDL 76 >=40 mg/dL 09/03/2022 12:57 PM [facility] Triglycerides 157(H) See Comment mg/dL 09/03/2022 12:57 PM [facility] Comment: Triglycerides (mg/dL) Adults (>18 years) Children (<18 years) Desirable <150 Not Established Borderline-High 150-199 Not Established High 200-499 Not Established Chol/HDL Ratio 2.6 0.0 - 5.0 09/03/2022 12:57 PM [facility] LDL Calculated 98 See Comment mg/dL 09/03/2022 12:57 PM [facility] Comment: Effective 01/09/2022, LDL [...] LAB BLOOD ORDERABLES Fi nal Result [address] [phone] * (ABNORMAL) Hemoglobin A1c (09/03/2022 9:58 AM EST) Hemoglobin A1c 5.7(H) 4.0 - 5.6 % 09/03/2022 12:34 PM [facility] Comment: Hemoglobin A1c values of [...] Glucose mg/dL 117 mg/dL 09/03/2022 12:34 PM [facility] Comment: Estimated average glucose (eAG) is a calculated value designed to estimate the expected average blood glucose level throughout the day from a single measurement of glycated hemoglobin A1C (HbA1c) and follows the calculation proposed by the [place] [employer] (Diabetes Care 31: 1-6, 2008). It may have less accuracy in children, women and patients with certain erythrocyte disorders. Blood Venipuncture / Unknown 09/03/2022 9:58 AM EST 09/03/2022 9:58 AM EST Ivana Martinez APRN LAB BLOOD ORDERABLES Fi nal Result [address] [phone] * TSH w/reflex to FT4 (BH GH LMW Q YH) (09/03/2022 9:58 AM EST) Thyroid Stimulating Hormone 3.940 See Comment IU/mL 09/03/2022 12:57 PM [facility] Comment: Male & Non- Females: 0.270-4.200 IU/mL 1st Trimester: 0.110-3.480 IU/mL 2nd Trimester: 0.320-3.850 IU/mL Blood Venipuncture / Unknown 09/03/2022 9:58 AM EST 09/03/2022 9:58 AM EST Ivana Martinez APRN LAB BLOOD ORDERABLES Fi nal Result Performing Organization Address [facility]/State/[facility] Co de Phone Number [address] [phone] documented in this encounter Visit Diagnoses Diagnosis Hypertension, unspecified type Hypercalcemia Elevated LFTs Other abnormal blood chemistry Dysuria documented in this encounter Additional Health Concerns Assessment Noted Time PHQ-9 Depression Total Score: 1 09/02/19 23 1:40 PM EST documented as of this encounter Care Teams Executive Vice President Business Development Relationship Specialty Start Date End Date Ivana Martinez APRN PCP - General Family Medicine 05/13/22 01/27/24 documented as of this encounter
--- OUTSIDE RECORDS SUMMARY | 2025-06-27 13:37 | XMS_ITS | Encounter Summary ---
Author Organization [facility] Address [address] [place] [address] Care Team Providers Care Wood Mill Supervisor Name Role Phone Ivana Martinez HECTOR Primary Care Provider Encounter Details Date Type Department Care Team (Late st Contact Info) Description 08/27/2021 Scanned Document [address]ie [employer] [facility] [address] [place] [address] Provider, historical . Social History Tobacco [...] documented as of this encounter Care Teams Wood Mill Supervisor Relationship Specialty Start Date End Date Ivana Martinez APRN PCP - General Family Medicine 05/13/22 01/27/24 documented as of this encounter
--- OUTSIDE RECORDS SUMMARY | 2025-06-27 13:37 | XMS_ITS | Encounter Summary ---
Author Organization [facility] and Home [facility] Address [address] [place] [address] Care Team Providers Care Usability Architect Name Role Phone Michelle Ivana YOUNG Primary Care Provider Encounter Details Date Type Department Care Team (Late st Contact Info) Description 08/18/2021 EpicOnHand Encounter [facility] Internal Medicine [address]st [place] [address] Leny Hernandez MD Social History Tobacco Use [...] documented as of this encounter Care Teams Usability Architect Relationship Specialty Start Date End Date Ivana Martinez APRN PCP - General Family Medicine 05/13/22 01/27/24 documented as of this encounter
--- OUTSIDE RECORDS SUMMARY | 2025-06-27 13:37 | XMS_ITS | Encounter Summary ---
Author Organization [facility] Address [address] [place] [address] Care Team Providers Care Solutions Operator Name Role Phone Ivana Martinez APRN Primary Care Provider Reason for Visit * Reason Onset Date Comments Medication Refill 10/20/2022 Encounter Details Date Type Department Care Team (Late st Contact Info) Description 10/20/2022 Refill [facility] Family Medicine [place] [address] [facility] [place] [address] Ivana Martinez APRN [address] [place] [phone] Medication Refill Social History Tobacco Use [...] documented as of this encounter Care Teams Solutions Operator Relationship Specialty Start Date End Date Ivana Martinez APRN PCP - General Family Medicine 05/13/22 01/27/24 documented as of this encounter
--- OUTSIDE RECORDS SUMMARY | 2025-06-27 13:37 | XMS_ITS | Encounter Summary ---
Author Organization [facility] Address [address] [place] [address] Care Team Providers Care Retail General Manager Name Role Phone Johannaastondidi Ivana HECTOR Primary Care Provider Encounter Details Date Type Department Care Team (Late st Contact Info) Description 11/19/2021 Scanned Document [facility] Internal Medicine [address] 1st [address] [place], [place] [address] Provider, Historical . Social History Tobacco Use [...] INTERNA L AP EXTERNAL AXILLARY ([facility] Y) Routine 11/17/2021 documented in this [...] documented as of this encounter Care Teams Retail General Manager Relationship Specialty Start Date End Date Ivana Martinez APRN PCP - General Family Medicine 05/13/22 01/27/24 documented as of this encounter
--- OUTSIDE RECORDS SUMMARY | 2025-06-27 13:37 | XMS_ITS | Encounter Summary ---
Author Organization [facility] and Home [facility] Address [address] [place] [address] Care Team Providers Care Hydrogen Operator Name Role Phone Ivana Martinez APRN Primary Care Provider Encounter Details Date Type Department Care Team (Late st Contact Info) Description 05/06/2019 Scanned Document Scarlet Espinosa M.D. [address] [facility] [address] [place] [address] Jeffy Espinosa MD [address] [place] [phone] Social History Tobacco Use Types Packs/Day [...] documented as of this encounter Care Teams Hydrogen Operator Relationship Specialty Start Date End Date Ivana Martinez APRN PCP - General Family Medicine 05/13/22 01/27/24 documented as of this encounter
--- OUTSIDE RECORDS SUMMARY | 2025-06-27 13:37 | XMS_ITS | Encounter Summary ---
Author Organization [facility] and [facility] Address [address] [place] [address] Care Team Providers Care Certified Emergency Vehicle Technician Name Role Phone Ivana Martinez HECTOR Primary Care Provider Reason for Visit * Reason Onset Date Comments Medication Refill 12/31/2022 Encounter Details Date Type Department Care Team (Late st Contact Info) Description 12/31/2022 Refill [facility] Internal Medicine [address] [place] [address] Zoya Clayton MD [address] [place] [phone] Medication Refill Social History Tobacco Use [...] documented as of this encounter Care Teams Certified Emergency Vehicle Technician Relationship Specialty Start Date End Date Ivana Martinez APRN PCP - General Family Medicine 05/13/22 01/27/24 documented as of this encounter
--- OUTSIDE RECORDS SUMMARY | 2025-06-27 13:37 | XMS_ITS | Encounter Summary ---
Author Organization [facility] Address [address] [place] [address] Care Team Providers Care Business Leader Name Role Phone Ivana Martinez HECTOR Primary Care Provider Reason for Visit * Reason Comments Medication Refill Encounter Details Date Type Department Care Team (Late Contact Info) Description 12/30/2021 Refill [facility] Gastroenterology [facility] [address] [facility] [address] [place], [place] [address] Matthew Huynh MD [address] [place] [address] Medication Refill Social History Tobacco [...] as of this encounter Care Teams Business Leader Relationship Specialty Start Date End Date Ivana Martinez APRN PCP - General Family Medicine 05/13/22 01/27/24 documented as of this encounter
== END 2025-06-27 11:21 | disposition home or self-care (01) ==
LOC: HO.HID 10:48
PROVIDERS: PCP Internal Medicine; Visit Provider Internal Medicine
DX: R21 Rash and other nonspecific skin eruption (principal); B35.4 Tinea corporis
CPT/HCPCS: 99213

== ENCOUNTER → 2025-06-27 10:48 | Outpatient (BNVA) | payer OTHER, SELFPAY | PROVIDERS: PCP Internal Medicine; Visit Provider Internal Medicine | DX: Z71.2 Person consulting for explanation of examination or test findings (principal); R21 Rash and other nonspecific skin eruption; B35.4 Tinea corporis | CPT/HCPCS: 99212 ==

== ENCOUNTER 2025-08-01 10:43 | Outpatient (AMB) | payer OTHER, SELFPAY ==
--- OUTSIDE RECORDS SUMMARY | 2022-10-21 13:14 | XMS_ITS | Encounter Summary ---
Author Organization [facility] Address [address] [place] [address] Care Team Providers Care Wire Brush Maker Name Role Phone Pcp, No Primary Care Provider Unavailabl e Reason for Referral * Diagnostic Imaging (Routine) - Closed Specialty Diagnoses / Procedures Referred By Christian chatman Referred To Contact Diagnoses Microhematuria Procedures CT Urogram w w/o contrast w/3D Matthew Rodney MD [address] [place] [address] Phone: tel: fax: Referral ID Status Reason Start Date Expiration Date Visits Re quested Visits Authorized [id number] Closed 10/08/2022 12/11/2022 1 1 Reason for Visit * Diagnostic Imaging (Routine) - Closed Specialty Diagnoses / Procedures Referred By Christian chatman Referred To Contact Diagnoses Microhematuria Procedures CT Urogram w w/o contrast w/3D Matthew Rodney MD [address] [place] [address] Phone: tel: fax: Referral ID Status Reason Start Date Expiration Date Visits Re quested Visits Authorized [id number] Closed 10/08/2022 12/11/2022 1 1 Encounter Details Date Type Department Care Team (Late st Contact Info) Description 10/21/2022 2:14 PM EDT Hospital Encounter [facility] [address] [place] [phone] Microhematuria Social History Tobacco Use Types Packs/Day [...] mL documented in this encounter Care Teams Wire Brush Maker Relationship Specialty Start Date End Date Pcp, No PCP - General 10/21/22 documented as of this encounter
--- NOTE | 2025-08-01 10:54 | A.OFFVIS_ITS ---
Vital Signs 08/01/25 10:58 Height 5 ft 9 in Weight 196 lb BMI 28.9 Pulse 102 H Pulse Source Pulse Oximeter Pulse Oximetry (%) 98 Oxygen Delivery Method Room Air Intake Visit Reasons: follow up 1month Allergies No Known Allergies Allergy (Verified 08/01/25 10:58) HPI Comments Details: History of Present Illness The patient is a 40 year old male presenting for follow-up for recurrent tinea corporis. He has a history of multiple episodes of this condition, which have been somewhat resistant to therapy but did improve with voriconazole 200 mg daily. The patient's last prescription was filled on 06/01, and he responded well for about one month with clearance of the affected area. However, he is now experiencing a recurrence with new skin lesions, including some in the malar area on both sides. In the past, he saw dermatology and underwent an evaluation for lupus. He has had no liver function abnormalities noted. Results - Labs: Reports no liver function abnormalities on prior testing. - Tests and Diagnostics: Patient has had an extensive workup in the past, including a dermatology evaluation for lupus. [facility] Medical History Rash B12 deficiency Elevated bilirubin Follow-up exam, 3-6 months since previous exam Alcohol use disorder, mild, abuse Tobacco use disorder Tinea corporis Acquired hypothyroidism Essential hypertension Surgical History No pertinent past surgical history Social History Housing: Condominium Alcohol intake: current Alcohol intake frequency: a few times a week Patient Tobacco Use Status: Current everyday Tobacco user (chewing ) Tobacco use type: Smokeless Tobacco e-Cigarette/Vaping Use: Never Used Second Hand Smoke Exposure: Yes service: No Current occupational status: employed 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 Physical Exam Exam Exam: Physical Exam - Vitals: Stable. - HEENT: Oropharynx is clear. - Cardiovascular: Heart has a regular rhythm. - Lungs: Clear to auscultation. - Abdomen: Soft, nontender. - Extremities: Nontender. - Skin: A reddish malar rash is present. Vital Signs: Last Vital Signs Pulse 102 H 08/01/25 10:58 Pulse Ox 98 08/01/25 10:58 Oxygen Delivery Method Room Air 08/01/25 10:58 BMI result Body Mass Index 28.9 Assessment & Plan Assessment & Plan (1) Tinea corporis: Code(s): B35.4 - Tinea corporis Category: Medical Plan Plan Patient was informed and verbally consented to the use of an ambient scribe for clinic note documentation during this visit. 1. Tinea corporis B35.4 The patient has recurrent tinea corporis with some response to voriconazole. He has a history of extensive prior workup including a dermatology evaluation. The plan is to restart voriconazole 200 mg daily for one month with one refill provided. He will be seen back in 2 months with the goal of stopping the medication if he is doing well. Discussion Notes I informed the patient that his current reddish rash in the malar area is likely a recurrence of his tinea corporis. I advised him to not apply Vaseline to the rash while taking the voriconazole. The plan is to restart voriconazole 200 mg daily for one month, and a refill was provided. We will have a follow-up visit in two months to assess his response, at which point we will likely stop the medication if he has improved. A Santi mini lab operator was used for this encounter. Medical Decision Making This patient has a history of recurrent tinea corporis that has been somewhat resistant to therapy but has previously responded to voriconazole. After approximately one month off the medication, he has developed new lesions in the malar area. The clinical impression is a recurrence of his fungal infection, especially given his prior negative evaluation for lupus by dermatology. Given his lack of liver function abnormalities, restarting a one-month course of oral voriconazole 200 mg daily is a safe and appropriate treatment plan. The goal is to treat the acute recurrence and reassess in two months, with the potential to discontinue therapy if the infection has resolved. Patient Instructions - Take one tablet of voriconazole 200 mg by mouth every day for one month. - You have one refill for this prescription if needed. - Do not put Vaseline on the rash while you are taking this medication. - Please schedule a follow-up appointment to see us in 2 months. Medications: New voriconazole administer on empty stomach, at least 1 hour before or after meal(s) 200 mg PO DAILY 30 tabs 1RF 30 days Coding Level of Care Code Est Pt Level 3 (62879) Diagnoses Tinea corporis B35.4
[2025-08-01 10:58] VITALS: PULSE 102; O2SAT 98; BMI 28.9
--- OUTSIDE RECORDS SUMMARY | 2025-08-01 12:15 | XMS_ITS | Encounter Summary ---
Author Organization [facility] Address [address] [place] [address] Care Team Providers Care Yard Inspector Name Role Phone Andrew Martinezhanie HECTOR Primary Care Provider Encounter Details Date Type Department Care Team (Late st Contact Info) Description 08/27/2021 Scanned Document [address] [facility] [address] [place] [id number] Provider, historical . Social History Tobacco [...] documented as of this encounter Care Teams Yard Inspector Relationship Specialty Start Date End Date Ivana Martinez APRN PCP - General Family Medicine 05/13/22 01/27/24 documented as of this encounter
--- OUTSIDE RECORDS SUMMARY | 2025-08-01 12:15 | XMS_ITS | Clinical Summary ---
Author Organization [facility] Address [address] [place] [address] Care Team Providers Care Chief Chemist Name Role Phone Pcp, No Primary Care [...] patient's age to complete this topic Insurance [facility] Care Teams Chief Chemist Relationship Specialty Start Date End Date Pcp, No PCP - General 10/21/22
--- OUTSIDE RECORDS SUMMARY | 2025-08-01 12:15 | XMS_ITS | Encounter Summary ---
Author Organization [facility] Address [address] [place] [address] Care Team Providers Care Intel Analyst Name Role Phone Ivana Martinez APRN Primary Care Provider Encounter Details Date Type Department Care Team (Late st Contact Info) Description 05/06/2019 Scanned Document Scarlet Espinosa M.D. [address] [facility] [address] [place] [address] Jeffy Espinosa MD [address] [place] [phone] Social History Tobacco Use Types Packs/Day [...] documented as of this encounter Care Teams Intel Analyst Relationship Specialty Start Date End Date Ivana Martinez APRN PCP - General Family Medicine 05/13/22 01/27/24 documented as of this encounter
--- OUTSIDE RECORDS SUMMARY | 2025-08-01 12:15 | XMS_ITS | Encounter Summary ---
Author Organization [facility] Address [address] [place] [address] Care Team Providers Care Instructor Product Inspection Name Role Phone Ivana Martinez HECTOR Primary Care Provider Reason for Visit * Reason Comments Medication Refill Encounter Details Date Type Department Care Team (Late st Contact Info) Description 09/29/2020 Refill [facility] Family Medicine [address] [place], [place] [phone] Zoya Clayton MD [address] [phone] Medication Refill Social History Tobacco [...] documented as of this encounter Care Teams Instructor Product Inspection Relationship Specialty Start Date End Date Ivana Martinez APRN PCP - General Family Medicine 05/13/22 01/27/24 documented as of this encounter
--- OUTSIDE RECORDS SUMMARY | 2025-08-01 12:15 | XMS_ITS | Encounter Summary ---
Author Organization [facility] Address [address] [place] [address] Care Team Providers Care Customer Solutions Architect Name Role Phone Physician, Pcp Unknown Primary Care Provider Ale vailable Encounter Details Date Type Department Care Team (Late st Contact Info) Description 08/19/2024 Lab Requisition [facility] - Main Lab [address] [facility] [email or web address] [address] Denzel Longo MD [address] [place] [address] [place] [phone] Local infection of the skin and subcutaneous [...] Final Result [facility] [address] [place] [address], documented in this encounter Visit Diagnoses Diagnosis Local infection of the skin and subcutaneous tissue, unspecified documented in this encounter Care Teams Customer Solutions Architect Relationship Specialty Start Date End Date Physician, Pcp Unknown PCP - General 02/22/25 documented as of this encounter
--- OUTSIDE RECORDS SUMMARY | 2025-08-01 12:15 | XMS_ITS | Encounter Summary ---
Author Organization [facility] Address [address] [place] [address] Care Team Providers Care Testing Coordinator Name Role Phone Ivana Martinez APRN Primary Care Provider Encounter Details Date Type Department Care Team (Late st Contact Info) Description 02/26/2023 Orders Only [facility] Family Medicine [place] [facility] [address] [place], [place] [phone] Ivana Martinez APRN [address] [place] [address] [address] [place] [address] Hypertension, unspecified type; Hypothyroidism, unspecified [...] - 11.0 x1000/ L 02/26/2023 3:06 PM [facility] RBC 5.06 4.00 - 6.00 M/ L 02/26/2023 3:06 PM [facility] Hemoglobin 16.4 [...] [facility] Platelets 331 150 - 420 x1000/ L 02/26/2023 3:06 PM [facility] MPV 9.8 [...] 0.0 - 1.0 % 02/26/2023 3:06 PM [facility] nRBC 0.0 0.0 - [...] 1.00 x 1000/ L 02/26/2023 3:06 PM [facility] Absolute Immature Granulocyte Count 0.02 0.00 - 0.30 x 1000/ L 02/26/2023 3:06 PM [facility] Absolute nRBC 0.00 0.00 - 1.00 x 1000/ L 02/26/2023 3:06 PM [facility] Blood Venipuncture / Unknown 02/26/2023 11:12 AM EDT 02/26/2023 11:12 AM EDT us Ivana Martinez [employer] LAB BLOOD ORDERABLES Fi nal Result [address] [phone] * (ABNORMAL) Comprehensive metabolic panel (02/26/2023 11:12 [...] estimate of kidney function. On 03/19/22 all [facility] Clinical Labs and [facility] began using a noa-blda-khrtr formula for estimating GFR called CKD-EPI Creatinine 2020. This equation reports eGFR based on creatinine, patient age, clinical sex, and is standardized to a body surface area of 1.73 m2. For the same creatinine, this new race-free eGFR will be lower than prior reported Black eGFR results and higher than prior Non-Black eGFR results. For further guidance, please refer to the CKD: Adult Sheetrock Applicator Signature pathway. Blood Venipuncture / Unknown 02/26/2023 11:12 AM EDT 02/26/2023 11:12 AM EDT Ivana Martinez APRN LAB BLOOD ORDERABLES Fi nal Result [address] [phone] * (ABNORMAL) Hemoglobin A1c (02/26/2023 11:12 AM [...] 02/26/2023 11:12 AM EDT us Ivana Martinez [employer] LAB BLOOD ORDERABLES Fi nal Result Performing Organization Address City/State/[facility] Co de Phone Number [address] [phone] * (ABNORMAL) Lipid panel (02/26/2023 11:12 AM EDT) Cholesterol 180 See Comment mg/dL 02/26/2023 3:26 PM T [facility] Comment: Total Cholesterol (mg/dL) Adults (>18 years) Children (<18 years) Desirable <200 <170 Borderline-High 200-239 170-199 High >=240 >=200 HDL 62 >=40 mg/dL 02/26/2023 3:26 PM T [facility] Triglycerides 161(H) See Comment mg/dL 02/26/2023 3:26 PM [facility] Comment: Triglycerides (mg/dL) Adults (>18 years) [...] 11:12 AM EDT 02/26/2023 11:12 AM EDT [employer] LAB BLOOD ORDERABLES Fi nal Result Performing Organization Address [facility] Co de Phone Number [address] [phone] * (ABNORMAL) Vitamin D, 25-hydroxy (02/26/2023 11:12 AM EDT) Vitamin S62-Esyoumz 11.1(L) 30.0 - 100.0 ng/mL 02/27/2023 10:42 AM EDT [facility] Comment: Vitamin D Status: Results in ng/mL <10.0: Deficient 10.0 - 29.9: Insufficient 30.0 - 100.0: Sufficient >100: Toxic Reference ranges established by [employer]. Blood Venipuncture / Unknown 02/26/2023 11:12 AM EDT 02/26/2023 11:12 AM EDT [employer] LAB BLOOD ORDERABLES Fi nal Result Performing Organization Address [facility]/ZIP Co de Phone Number [address] [phone] * (ABNORMAL) Gamma GT (02/26/2023 11:12 AM EDT) GGT 108(H) <48 U/L 02/26/2023 3:26 PM EDT [facility] Blood Venipuncture / Unknown 02/26/2023 11:12 AM EDT 02/26/2023 11:12 AM EDT Ivana Martinez [facility] LAB BLOOD ORDERABLES Fi nal Result Performing Organization Address [facility] Co de Phone Number [address] [phone] * TSH w/reflex to FT4 (BH GH LMW Q YH) (02/26/2023 11:12 AM EDT) Thyroid Stimulating Hormone 2.550 See Comment IU/mL 02/26/2023 3:26 PM EDT [facility] Comment: Male & Non- Females: 0.270-4.200 IU/mL 1st Trimester: 0.110-3.480 IU/mL 2nd Trimester: 0.320-3.850 IU/mL Blood Venipuncture / Unknown 02/26/2023 11:12 AM EDT 02/26/2023 11:12 AM EDT Ivana Martinez [employer] LAB BLOOD ORDERABLES Fi nal Result Performing Organization Address [facility]/ZIP Co de Phone Number [address] [phone] documented in this encounter Visit Diagnoses Diagnosis Hypertension, unspecified type Hypothyroidism, unspecified type LFT elevation Other abnormal blood chemistry Vitamin D deficiency Unspecified vitamin D deficiency documented in this encounter Additional Health Concerns Assessment Noted Time PHQ-9 Depression Total Score: 0 02/27/20 23 10:41 AM EDT documented as of this encounter Care Teams Testing Coordinator Relationship Specialty Start Date End Date Ivana Martinez APRN PCP - General Family Medicine 05/13/22 01/27/24 documented as of this encounter
--- OUTSIDE RECORDS SUMMARY | 2025-08-01 12:15 | XMS_ITS | Clinical Summary ---
Author Organization [facility] Address [address] [place] [address] Care Team Providers Care Design Studio Consultant Name Role Phone Unavailable Primary Care Provider Unavailabl e Social History Tobacco Use Types Packs/Day Years Used Date Smoking Tobacco: Former Smokeless Tobacco: Never Alcohol Use Standard Drinks/Week Comments Yes 2 (1 standard drink = 0.6 oz pur e alcohol) Sex and Gender Information Value Date Recorded Sex Assigned at Not on file Legal Sex Male 5:32 PM EST Gender Identity Not on file Sexual Orientation Not on file Plan of Treatment Health Maintenance Due Date Last Done Comments Blood Pressure 1986 Depression Screening 1998 Hepatitis C Screening 2004 DTaP,Tdap,and Td Vaccines (1 - Tdap) 2005 COVID-19 Vaccine (2024-2 6 season) 2025 Influenza Vaccine (#1) 2025 Meningococcal B Vaccines Aged Out No longer eligible based on patient's age to complete this topic Meningococcal Vaccines Aged Out No lo nger eligible based on patient's age to complete this topic Pneumococcal Vaccine Aged Out No long er eligible based on patient's age to complete this topic
--- OUTSIDE RECORDS SUMMARY | 2025-08-01 12:15 | XMS_ITS | Encounter Summary ---
Author Organization [facility] Address [address] [place] [address] Care Team Providers Care Tank Filler Name Role Phone Ivana Martinez SYRUPER Primary Care Provider Encounter Details Date Type Department Care Team (Late st Contact Info) Description 05/05/2019 Scanned Document Scarlet Espinosa M.D. [address] [facility] [address] [place] [address] Jeffy Espinosa MD [address] [place] [phone] Social History Tobacco Use Types Packs/Day [...] documented as of this encounter Care Teams Tank Filler Relationship Specialty Start Date End Date Ivana Martinez APRN PCP - General Family Medicine 05/13/22 01/27/24 documented as of this encounter
--- OUTSIDE RECORDS SUMMARY | 2025-08-01 12:15 | XMS_ITS | Encounter Summary ---
Author Organization [facility] Address [address] [place] [address] Care Team Providers Care Roustabout Name Role Phone JohannaAndrew mcelroyhanie HECTOR Primary Care Provider Encounter Details Date Type Department Care Team (Late st Contact Info) Description 09/26/2021 Scanned Document [facility] Internal Medicine [address] [place], [place] [address] External, Provider Social History Tobacco Use Types [...] documented as of this encounter Care Teams Roustabout Relationship Specialty Start Date End Date Ivana Martinez APRN PCP - General Family Medicine 05/13/22 01/27/24 documented as of this encounter
--- OUTSIDE RECORDS SUMMARY | 2025-08-01 12:15 | XMS_ITS | Encounter Summary ---
Author Organization [facility] Address [address] [place] [address] Care Team Providers Care Power Plant Operators Supervisor Name Role Phone Andrew Martinezhanie HECTOR Primary Care Provider Encounter Details Date Type Department Care Team (Late st Contact Info) Description 11/13/2020 Scanned Document [facility] Internal Medicine [address], [address] [place] [address] Zoya Clayton MD [facility] [address] [phone] Social History Tobacco Use Types [...] documented as of this encounter Care Teams Power Plant Operators Supervisor Relationship Specialty Start Date End Date Ivana Martinez APRN PCP - General Family Medicine 05/13/22 01/27/24 documented as of this encounter
--- OUTSIDE RECORDS SUMMARY | 2025-08-01 12:15 | XMS_ITS | Encounter Summary ---
Author Organization [facility] Address [address] [place] [address] Care Team Providers Care Radio Adjuster Name Role Phone Ivana Martinez HECTOR Primary Care Provider Reason for Visit * Reason Comments Medication Refill Encounter Details Date Type Department Care Team (Late st Contact Info) Description 06/01/2021 Refill [facility] Internal Medicine [address] [place] [address] Zoya Clayton MD [facility] [address] [phone] Medication Refill Social History Tobacco [...] documented as of this encounter Care Teams Radio Adjuster Relationship Specialty Start Date End Date Ivana Martinez APRN PCP - General Family Medicine 05/13/22 01/27/24 documented as of this encounter
--- OUTSIDE RECORDS SUMMARY | 2025-08-01 12:15 | XMS_ITS | Encounter Summary ---
Author Organization [facility] Address [address] [place] [address] Care Team Providers Care Blanching Machine Operator Name Role Phone Andrew Martinezhanie HECTOR Primary Care Provider Encounter Details Date Type Department Care Team (Late st Contact Info) Description 08/22/2021 Scanned Document [facility] Internal Medicine [address] [place], [place] [address] Zoya Clayton MD [facility] [address] [phone] Social History Tobacco Use Types [...] documented as of this encounter Care Teams Blanching Machine Operator Relationship Specialty Start Date End Date Ivana Martinez APRN PCP - General Family Medicine 05/13/22 01/27/24 documented as of this encounter
--- OUTSIDE RECORDS SUMMARY | 2025-08-01 12:15 | XMS_ITS | Encounter Summary ---
Author Organization [facility] Address [address] [place] [address] Care Team Providers Care Retail Center Receptionist Name Role Phone Ivana Martinez HECTOR Primary Care Provider Reason for Visit * Reason Onset Date Comments Medication Refill 07/12/2021 Encounter Details Date Type Department Care Team (Late st Contact Info) Description 07/12/2021 Refill [facility] Internal Medicine [address] [place] [address] Zoya Clayton MD [address] [place] [phone] Medication Refill Social History Tobacco Use [...] as of this encounter Care Teams Retail Center Receptionist Relationship Specialty Start Date End Date Ivana Martinez APRN PCP - General Family Medicine 05/13/22 01/27/24 documented as of this encounter
--- OUTSIDE RECORDS SUMMARY | 2025-08-01 12:15 | XMS_ITS | Clinical Summary ---
Author Organization [address] [facility] Address [address] [place] [address] Phone Care Team Providers Care Gastroenterology Physician Name Role Phone Physician, Pcp Unknown Primary [...] Depression Screening 08/04/2024 COVID-19 Vaccine ( - 2024-2 6 season) 2025 Influenza Vaccine (#1) 2025 RSV [...] complete this topic Insurance MEDICAID - [facility] Care Teams Gastroenterology Physician Relationship Specialty Start Date End Date Physician, Pcp Unknown PCP - General 02/22/25
--- OUTSIDE RECORDS SUMMARY | 2025-08-01 12:15 | XMS_ITS | Clinical Summary ---
Author Organization [address] Address [address] [place] [address] Care Team Providers Care Process Description Writer Name Role Phone Unavailable Primary Care [...] 10/13/2031 10/12/2021, 10/12/2021, 10/12/2021, Additional history exists Hepatitis C screening Completed 05/13/2022, 021 Influenza [...] mg/dL 120 mg/dL 02/26/2023 7:37 PM EDT [facility] Comment: Estimated average glucose (eAG) is a calculated value designed to estimate the expected average blood glucose level throughout the day from a single measurement of glycated hemoglobin A1C (HbA1c) and follows the calculation proposed by the [place] [employer] (Diabetes Care 31: 1-6, 2008). It may have less accuracy in children, women and patients with certain erythrocyte disorders. Blood Venipuncture / Unknown 02/26/2023 11:12 AM EDT 02/26/2023 11:12 AM EDT Ivana Martinez APRN LAB BLOOD ORDERABLES Fi nal Result [address] [phone] * Hepatitis C Ab with reflex to HCV PCR (05/13/2022 10:46 AM EDT) Hepatitis C Ab Initial Result 0.03 S/CO 05/13/2022 1:44 PM EDT [facility] Hepatitis C Ab Interpretation Non-React lilo Non-React lilo 05/13/2022 1:44 PM T [facility] Blood Venipuncture / Unknown 05/13/2022 10:46 AM EDT 05/13/2022 10:46 AM EDT Ivana Martinez COMPUTER SYSTEM TECHNICIAN LAB BLOOD ORDERABLES Fi nal Result [address] [place] [address], [facility] [phone] * Colonoscopy (10/12/2021 7:19 AM EST) Colonoscopy Endoscopy Patient Name: Jay Guillermo Procedure Date: 10/12/2021 7:19 AM Date of : 1985 Age: 36 Gender: Male Admit Type: Outpatient [facility] #: [id number] Note Status: Finalized Attending MD: Matthew Huynh [...] and oxygen saturations were monitored continuously. The [id number] was introduced through the anus and advanced [...] the patient. Procedure Code(s): --- Professional --- 01370, Colonoscopy, flexible; with biopsy, single or multiple Diagnosis Code(s): --- Professional --- K62.89, Other specified diseases of anus and rectum R10.84, Generalized abdominal pain R19.7, Diarrhea, unspecified CPT copyright 2020 [employer]. All rights reserved. The codes documented in this report are preliminary and upon field research assistant review may be revised to meet current compliance requirements. Attending Participation: I personally performed the entire procedure. Matthew Huynh MD _ Matthew Huynh MD 10/12/2021 11:45:52 AM This report has been signed electronically. Number of Addenda: 0 Note Initiated On: 10/12/2021 7:19 AM Estimated Blood Loss: Estimated blood loss: none. Scope In: Scope Out: [facility] PROVATION 10/12/2021 7:19 AM EST Zoya Clayton MD GI PROCEDURE ORDERABLES Final Re sult [facility] from Last 3 Months or Most Recently Relevant to Health Maintenance Insurance [place] Advance Directives Documents on File Type Date Recorded Patient Interior Design Program Chair Expl anation Healthcare Interior Design Program Chair/Po wer of Content Development Specialist 03/19/2021 4:27 PM 2020
--- OUTSIDE RECORDS SUMMARY | 2025-08-01 12:15 | XMS_ITS | Encounter Summary ---
Author Organization [facility] Address [address] [place] [address] Care Team Providers Care Division Chief Name Role Phone Michelle Ivana YOUNG Primary Care Provider Encounter Details Date Type Department Care Team (Late st Contact Info) Description 08/18/2021 EpicOnHand Encounter [facility] Internal Medicine [address] [place] [address] Leny Hernandez MD Social History Tobacco Use [...] documented as of this encounter Care Teams Division Chief Relationship Specialty Start Date End Date Ivana Martinez APRN PCP - General Family Medicine 05/13/22 01/27/24 documented as of this encounter
--- OUTSIDE RECORDS SUMMARY | 2025-08-01 12:15 | XMS_ITS | Encounter Summary ---
Author Organization [facility] Address [address] [place] [address] Care Team Providers Care Professor Of Practice Name Role Phone Ivana Martinez HECTOR Primary Care Provider Encounter Details Date Type Department Care Team (Late st Contact Info) Description 11/08/2020 Scanned Document [address] DrShellie [facility] [address] [place] [address] External, Provider Social History Tobacco Use [...] documented as of this encounter Care Teams Professor Of Practice Relationship Specialty Start Date End Date Ivana Martinez APRN PCP - General Family Medicine 05/13/22 01/27/24 documented as of this encounter
--- OUTSIDE RECORDS SUMMARY | 2025-08-01 12:15 | XMS_ITS | Encounter Summary ---
Author Organization [facility] Address [address] [place] [address] Care Team Providers Care Ambulance Operations Supervisor Name Role Phone Ivana Martinez HECTOR Primary Care Provider Reason for Visit * Reason Comments Medication Refill Encounter Details Date Type Department Care Team (Late st Contact Info) Description 06/20/2021 Refill [facility] Internal Medicine [address] [place] [address] Zoya Clayton MD [facility] [address] [phone] Medication Refill Social History Tobacco [...] documented as of this encounter Care Teams Ambulance Operations Supervisor Relationship Specialty Start Date End Date Ivana Martinez APRN PCP - General Family Medicine 05/13/22 01/27/24 documented as of this encounter
--- OUTSIDE RECORDS SUMMARY | 2025-08-01 12:16 | XMS_ITS | Encounter Summary ---
Author Organization [facility] Address [address] [place] [address] Care Team Providers Care Welder Gas Tungsten Arc Name Role Phone Ivana Martinez APRN Primary Care Provider Encounter Details Date Type Department Care Team (Late st Contact Info) Description 09/03/2022 Orders Only [facility] Family Medicine [address] [place], [place] [phone] Ivana Martinez APRN [address] [place] [address] [address] [place] [address] Hypertension, unspecified type; Hypercalcemia; Elevated [...] 09/03/2022 9:58 AM EST us Ivana Martinez STRE[address] FLUSHER DRIVER LAB BLOOD ORDERABLES Fi nal Result [address] [phone] * (ABNORMAL) CBC auto differential (09/03/2022 9:58 AM EST) WBC 6.2 4.0 - 11.0 x1000/ L 09/03/2022 12:01 PM [facility] RBC 5.11 4.00 - 6.00 M/ L 09/03/2022 12:01 PM [facility] Hemoglobin 16.5 13.2 - 17.1 g/dL 09/03/2022 12:01 [facility] Hematocrit 47.30 38.50 - 50.00 % 09/03/2022 12:01 [facility] MCV 92.6 80.0 - 100.0 fL 09/03/2022 12:01 [facility] MCH 32.3 27.0 - 33.0 pg 09/03/2022 12:01 PM [facility] MCHC 34.9 31.0 - 36.0 g/dL 09/03/2022 12:01 [facility] RDW-CV 12.7 11.0 - 15.0 % 09/03/2022 12:01 PM [facility] Platelets 278 150 - 420 x1000/ L 09/03/2022 12:01 PM [facility] MPV 10.2 8.0 - 12.0 fL 09/03/2022 12:01 [facility] Neutrophils 40.9 39.0 - 72.0 % 09/03/2022 12:01 PM [facility] Lymphocytes 39.7 17.0 - 50.0 % 09/03/2022 12:01 [facility] Monocytes 8.8 4.0 - 12.0 % 09/03/2022 12:01 [facility] Eosinophils 9.3(H) 0.0 - 5.0 % 09/03/2022 12:01 [facility] Basophil 1.1 0.0 - 1.4 % 09/03/2022 12:01 [facility] Immature Granulocytes 0.2 0.0 - 1.0 % 09/03/2022 12:01 PM [facility] nRBC 0.0 0.0 - 1.0 % 09/03/2022 12:01 [facility] ANC(Abs Neutrophil Count) 2.55 2.00 - 7.60 x 1000/ L 09/03/2022 12:01 [facility] Absolute Lymphocyte Count 2.48 0.60 - 3.70 x 1000/ L 09/03/2022 12:01 PM [facility] Monocyte Absolute Count 0.55 0.00 - 1.00 x 1000/ L 09/03/2022 12:01 PM [facility] Eosinophil Absolute Count 0.58 0.00 - 1.00 x 1000/ L 09/03/2022 12:01 PM [facility] Basophil Absolute Count 0.07 0.00 - 1.00 x 1000/ L 09/03/2022 12:01 PM [facility] Absolute Immature Granulocyte Count 0.01 0.00 - 0.30 x 1000/ L 09/03/2022 12:01 PM [facility] Absolute nRBC 0.00 0.00 - 1.00 x 1000/ L 09/03/2022 12:01 PM [facility] Blood Venipuncture / Unknown 09/03/2022 9:58 AM EST 09/03/2022 9:58 AM EST Ivana [address] FLUSHER DRIVER LAB BLOOD ORDERABLES Fi nal Result Performing Organization Address [facility]/ZIP Co de Phone Number [address] [phone] * Treponema pallidum (syphilis) antibody w/reflex (09/03/2022 9:58 AM EST) Treponema pallidum Ab Index <0.100 <0.9 Index 09/03/2022 1:38 PM [facility] Treponema pallidum Antibody Total, Serum Non-Reacti ve Non-Reacti ve 09/03/2022 1:38 PM [facility] Blood Venipuncture / Unknown 09/03/2022 9:58 AM EST 09/03/2022 9:58 AM EST us Ivana Petastonle [address] FLUSHER DRIVER LAB BLOOD ORDERABLES Fi nal Result Performing Organization Address [facility]/ZIP Co de Phone Number [address] [phone] * (ABNORMAL) Gamma GT (09/03/2022 9:58 AM EST) GGT 133(H) <48 U/L 09/03/2022 12:57 PM [facility] Blood Venipuncture / Unknown 09/03/2022 9:58 AM EST 09/03/2022 9:58 AM EST Ivana Petastonle [address] FLUSHER DRIVER LAB BLOOD ORDERABLES Fi nal Result Performing Organization Address [facility] Phone Number [address] [phone] * (ABNORMAL) Vitamin D, 25-hydroxy (09/03/2022 9:58 AM EST) Vitamin L67-Loizvmd 12.1(L) 30.0 - 100.0 ng/mL 09/03/2022 1:55 PM [facility] Comment: Vitamin D Status: Results in ng/mL <10.0: Deficient 10.0 - 29.9: Insufficient 30.0 - 100.0: Sufficient >100: Toxic Reference ranges established by [employer]. Blood Venipuncture / Unknown 09/03/2022 9:58 AM EST 09/03/2022 9:58 AM EST Ivanabhavin Lesliele [address] FLUSHER DRIVER LAB BLOOD ORDERABLES Fi nal Result Performing Organization Address [facility] Phone Number [address] [phone] * (ABNORMAL) Lipid panel (09/03/2022 9:58 AM EST) Cholesterol 201(H) See Comment mg/dL 09/03/2022 12:57 PM [facility] Comment: Total Cholesterol (mg/dL) Adults (>18 years) Children (<18 years) Desirable <200 <170 Borderline-High 200-239 170-199 High >=240 >=200 HDL 76 >=40 mg/dL 09/03/2022 12:57 PM [facility] Triglycerides 157(H) See Comment mg/dL 09/03/2022 12:57 PM [facility] Comment: Triglycerides (mg/dL) Adults (>18 years) [...] APRN LAB BLOOD ORDERABLES Fi nal Result [address] [phone] * (ABNORMAL) Hemoglobin A1c (09/03/2022 9:58 AM [...] and follows the calculation proposed by the [place] [employer] (Diabetes Care 31: 1-6, 2008). It may have less accuracy in children, women and patients with certain erythrocyte disorders. Blood Venipuncture / Unknown 09/03/2022 9:58 AM EST 09/03/2022 9:58 AM EST Ivana Martinez APRN LAB BLOOD ORDERABLES Fi nal Result [address] [phone] * TSH w/reflex to FT4 (BH GH LMW Q YH) (09/03/2022 9:58 AM EST) Thyroid Stimulating Hormone 3.940 See Comment IU/mL 09/03/2022 12:57 PM [facility] Comment: Male & Non- Females: 0.270-4.200 IU/mL 1st Trimester: 0.110-3.480 IU/mL 2nd Trimester: 0.320-3.850 IU/mL Blood Venipuncture / Unknown 09/03/2022 9:58 AM EST 09/03/2022 9:58 AM EST Ivana Martinez APRN LAB BLOOD ORDERABLES Fi nal Result Performing Organization Address [facility]/State/[facility] Co de Phone Number [address] [phone] documented in this encounter Visit Diagnoses Diagnosis Hypertension, unspecified type Hypercalcemia Elevated LFTs Other abnormal blood chemistry Dysuria documented in this encounter Additional Health Concerns Assessment Noted Time PHQ-9 Depression Total Score: 1 09/02/19 23 1:40 PM EST documented as of this encounter Care Teams Welder Gas Tungsten Arc Relationship Specialty Start Date End Date Ivana Martinez APRN PCP - General Family Medicine 05/13/22 01/27/24 documented as of this encounter
--- OUTSIDE RECORDS SUMMARY | 2025-08-01 12:16 | XMS_ITS | Encounter Summary ---
Author Organization [facility] Address [address] [place] [address] Care Team Providers Care Electrotype Molder Name Role Phone Andrew Martinezaldo YOUNG Primary Care Provider Reason for Visit * Reason Comments Medication Refill Encounter Details Date Type Department Care Team (Late st Contact Info) Description 06/30/2022 Refill [facility] Internal Medicine [address] [place] [address] Souleymane Wilson DO [address] [place] [phone] Medication Refill Social History Tobacco Use Types [...] documented as of this encounter Care Teams Electrotype Molder Relationship Specialty Start Date End Date Ivana Martinez APRN PCP - General Family Medicine 05/13/22 01/27/24 documented as of this encounter
--- OUTSIDE RECORDS SUMMARY | 2025-08-01 12:16 | XMS_ITS | Encounter Summary ---
Author Organization [facility] Address [address] [place] [address] Care Team Providers Care Security And Compliance Analyst Name Role Phone Physician, Pcp Unknown Primary Care Provider Ale vailable Encounter Details Date Type Department Care Team (Late st Contact Info) Description 02/22/2025 Lab Requisition [facility] Lab [address] [place] [address] Selena Ramos MD [address] [place] [address] [place] [address] Tinea corporis Social History Tobacco Use Types [...] after 4 Weeks 03/24/2025 10:59 AM EDT [facility] Skin 02/22/2025 02/22/2025 6:5 8 PM EDT Selena Ramos MD LAB MICROBIOLOGY - GENERAL MONTY HAYDEN Final Result [facility] [address] [place], [place] [address] [phone] documented in this encounter Visit Diagnoses Diagnosis Tinea corporis Dermatophytosis of the body documented in this encounter Care Teams Security And Compliance Analyst Relationship Specialty Start Date End Date Physician, Pcp Unknown PCP - General 02/22/25 documented as of this encounter
--- OUTSIDE RECORDS SUMMARY | 2025-08-01 12:16 | XMS_ITS | Encounter Summary ---
Author Organization [facility] Address [address] [place] [address] Care Team Providers Care Press Catcher Name Role Phone Ivana Martinez HECTOR Primary Care Provider Reason for Visit * Reason Onset Date Comments Medication Refill 10/29/2021 Encounter Details Date Type Department Care Team (Late st Contact Info) Description 10/29/2021 Refill [facility] Internal Medicine [address] [place] [address] Zoya Clayton MD [address] [place] [phone] Medication Refill Social History Tobacco Use [...] documented as of this encounter Care Teams Press Catcher Relationship Specialty Start Date End Date Ivana Martinez APRN PCP - General Family Medicine 05/13/22 01/27/24 documented as of this encounter
--- OUTSIDE RECORDS SUMMARY | 2025-08-01 12:16 | XMS_ITS | Encounter Summary ---
Author Organization [facility] Address [address] [place] [address] Care Team Providers Care Cow Tender Name Role Phone Pcp, No Primary Care Provider Unavailabl e Encounter Details Date Type Department Care Team (Late st Contact Info) Description 10/12/2022 Scanned Document [facility] [address] [phone] Matthew Rodney MD [address] [place] [address] Social History Tobacco Use Types Packs/Day [...] on filedocumented in this encounter Care Teams Cow Tender Relationship Specialty Start Date End Date Pcp, No PCP - General 10/21/22 documented as of this encounter
--- OUTSIDE RECORDS SUMMARY | 2025-08-01 12:16 | XMS_ITS | Encounter Summary ---
Author Organization [facility] Address [address] [place] [address] Care Team Providers Care Live Truck Operator Name Role Phone Ivana Martinez HECTOR Primary Care Provider Reason for Visit * Reason Onset Date Comments Medication Refill 06/25/2022 Encounter Details Date Type Department Care Team (Late st Contact Info) Description 06/25/2022 Refill [facility] Internal Medicine [address] [place] [address] Zoya Clayton MD [address] [place] [phone] Medication Refill Social History Tobacco Use [...] documented as of this encounter Care Teams Live Truck Operator Relationship Specialty Start Date End Date Ivana Martinez APRN PCP - General Family Medicine 05/13/22 01/27/24 documented as of this encounter
--- OUTSIDE RECORDS SUMMARY | 2025-08-01 12:16 | XMS_ITS | Encounter Summary ---
Author Organization [facility] Address [address] [place] [address] Care Team Providers Care Interior Assemblies Developer Prover Name Role Phone Ivana Martinez HECTOR Primary Care Provider Reason for Visit * Reason Onset Date Comments Medication Refill 12/31/2022 Encounter Details Date Type Department Care Team (Late st Contact Info) Description 12/31/2022 Refill [facility] Internal Medicine [address] [place] [address] Zoya Clayton MD [address] [place] [phone] Medication Refill Social History Tobacco Use [...] documented as of this encounter Care Teams Interior Assemblies Developer Prover Relationship Specialty Start Date End Date Ivana aMrtinez APRN PCP - General Family Medicine 05/13/22 01/27/24 documented as of this encounter
--- OUTSIDE RECORDS SUMMARY | 2025-08-01 12:16 | XMS_ITS | Encounter Summary ---
Author Organization [facility] Address [address] [place] [address] Care Team Providers Care Anesthesia Attending Name Role Phone Andrew Martinezhanie HECTOR Primary Care Provider Encounter Details Date Type Department Care Team (Late st Contact Info) Description 11/17/2021 Scanned Document [facility] Internal Medicine [address], 1[address] [place], [place] [address] Zoya Clayton MD [facility] [address] [phone] Social History Tobacco Use Types [...] documented as of this encounter Care Teams Anesthesia Attending Relationship Specialty Start Date End Date Ivana Martinez APRN PCP - General Family Medicine 05/13/22 01/27/24 documented as of this encounter
--- OUTSIDE RECORDS SUMMARY | 2025-08-01 12:16 | XMS_ITS | Encounter Summary ---
Author Organization [facility] Address [address] [place] [address] Care Team Providers Care Pastor Name Role Phone Andrew Martinezhanie HECTOR Primary Care Provider Encounter Details Date Type Department Care Team (Late st Contact Info) Description 09/26/2021 Scanned Document [facility] Internal Medicine [address], [address] [place], [place] [address] Zoya Clayton MD [facility] [address] [phone] Social History Tobacco Use Types [...] documented as of this encounter Care Teams Pastor Relationship Specialty Start Date End Date Ivana Martinez APRN PCP - General Family Medicine 05/13/22 01/27/24 documented as of this encounter
--- OUTSIDE RECORDS SUMMARY | 2025-08-01 12:16 | XMS_ITS | Encounter Summary ---
Author Organization [facility] and [facility] Address [address] [place] [address] Care Team Providers Care Pants Closer Name Role Phone Ivana Martinez APRN Primary Care Provider Encounter Details Date Type Department Care Team (Late st Contact Info) Description 05/13/2022 Transcribed Orders [place] [facility] [address] [place], [place] [address] Ivana Martinez APRN [address] [facility] [address] [place] [address] Hypocalcemia (Primary Dx); Hypertension, unspecified [...] AM EDT 05/13/2022 10:46 AM EDT Ivana Aptanalilibeth MUSICAL INSTRUMENT SUPERVISOR LAB BLOOD ORDERABLES Fi nal Result Performing Organization Address City/[facility] Co de Phone Number [address] [phone] * PTH, intact without calcium (05/13/2022 10:46 AM EDT) Parathyroid Hormone, Intact 35.0 15.0 - 65.0 pg/mL 05/13/2022 12:49 PM EDT [facility] Blood Venipuncture / Unknown 05/13/2022 10:46 AM EDT 05/13/2022 10:46 AM EDT Ivanabhavin Martinez MUSICAL INSTRUMENT SUPERVISOR LAB BLOOD ORDERABLES Fi nal Result [facility] [address] [place] [address], [facility] [phone] * (ABNORMAL) Comprehensive metabolic panel (05/13/2022 10:46 AM EDT) Sodium 138 136 - 144 mmol/L 05/13/2022 1:07 PM [facility] Potassium 3.8 3.3 - 5.3 mmol/L 05/13/2022 1:07 PM [facility] Chloride 98 98 - 107 mmol/L 05/13/2022 1:07 PM [facility] CO2 28 20 - 30 mmol/L 05/13/2022 1:07 PM [facility] Anion Gap 12 7 - 17 05/13/2022 1:07 PM [facility] Glucose 105(H) 70 - 100 mg/dL 05/13/2022 1:07 PM [facility] BUN 6 6 - 20 mg/dL 05/13/2022 1:07 PM [facility] Creatinine 0.78 0.40 - 1.30 mg/dL 05/13/2022 1:07 PM [facility] Calcium 9.6 8.8 - 10.2 mg/dL 05/13/2022 1:07 PM [facility] BUN/Creatinine Ratio 7.7(L) 8.0 - 23.0 05/04 1:07 PM [facility] Total Protein 7.5 6.6 - 8.7 g/dL 05/13/2022 1:07 PM [facility] Albumin 5.2(H) 3.6 - 4.9 g/dL 05/13/2022 1:07 PM [facility] Total Bilirubin 0.5 <=1.2 mg/dL 05/13/20 1:07 PM [facility] Alkaline Phosphatase 81 9 - 122 U/L 05/2022 1:07 PM [facility] Alanine Aminotransferase (ALT) 45 9 - 59 U/L 05/13/2022 1:07 PM [facility] Comment:Calcium dobesilate c an cause artificially low ALT results at therapeutic concentrations Aspartate Aminotransferase (AST) 48(H) 10 - 35 U/L 05/13/2022 1:07 PM EDT [facility] Globulin 2.3 2.3 - 3.5 g/dL 05/13/2022 1:07 PM [facility] A/G Ratio 2.3(H) 1.0 - 2.2 05/13/2022 1:07 PM [facility] AST/ALT Ratio 1.1 See Comment 05/13/2022 1:07 PM [facility] Comment: Adult with mild elevations of transaminases (< 5 times upper limit of normal): AST/ALT > 2 suggests alcoholic liver injury AST/ALT < 1 suggests non-alcoholic fatty liver disease (NAFLD) [place] (healthy): AST/ALT can be > 3 on day 0 AST/ALT < 2 by day 5 The thresholds provided focus on the most common etiologies of elevated serum transaminase levels and the associated alteration of AST:ALT ratios; they are not intended to exclude other feasible and clinically appropriate possibilities eGFR (Creatinine) >60 >=60 mL/min/1.73 m2 05/13/2022 1:07 PM [facility] Comment:Estimated glomerular filtration rate (eGFR) was [...] APRN LAB BLOOD ORDERABLES Fi nal Result [address] [phone] * (ABNORMAL) CBC auto differential (05/13/2022 10:46 AM EDT) WBC 5.5 4.0 - 11.0 x1000/ L 05/13/2022 12:09 PM T [facility] RBC 5.19 4.00 - 6.00 M/ L 05/13/2022 12:09 PM [facility] Hemoglobin 16.6 13.2 - 17.1 g/dL 05/13/2022 12:09 PM [facility] Hematocrit 45.70 38.50 - 50.00 % 05/13/2022 12:09 PM [facility] MCV 88.1 80.0 - 100.0 fL 05/13/2022 12:09 PM [facility] MCH 32.0 27.0 - 33.0 pg 05/13/2022 12:09 PM [facility] MCHC 36.3(H) 31.0 - 36.0 g/dL 05/13/2022 12:09 PM [facility] RDW-CV 12.7 11.0 - 15.0 % 05/13/2022 12:09 PM [facility] Platelets 323 150 - 420 x1000/ L 05/13/2022 12:09 PM [facility] MPV 9.5 8.0 - 12.0 fL 05/13/2022 12:09 PM [facility] Neutrophils 36.5(L) 39.0 - 72.0 % 05/13/2022 12:09 PM [facility] Lymphocytes 42.0 17.0 - 50.0 % 05/13/2022 12:09 PM [facility] Monocytes 9.2 4.0 - 12.0 % 05/13/2022 12:09 PM [facility] Eosinophils 11.2(H) 0.0 - 5.0 % 05/13/2022 12:09 PM [facility] Basophil 1.1 0.0 - 1.4 % 05/13/2022 12:09 PM [facility] Immature Granulocytes 0.0 0.0 - 1.0 % 05/13/2022 12:09 PM [facility] nRBC 0.0 0.0 - 1.0 % 05/13/2022 12:09 PM [facility] ANC(Abs Neutrophil Count) 1.99(L) 2.00 - 7.60 x 1000/ L 05/13/2022 12:09 PM [facility] Absolute Lymphocyte Count 2.29 0.60 - 3.70 x 1000/ L 05/13/2022 12:09 PM [facility] Monocyte Absolute Count 0.50 0.00 - 1.00 x 1000/ L 05/13/2022 12:09 PM EDT [facility] Eosinophil Absolute Count 0.61 0.00 - 1.00 x 1000/ L 05/13/2022 12:09 PM EDT [facility] Basophil Absolute Count 0.06 0.00 - 1.00 x 1000/ L 05/13/2022 12:09 PM EDT [facility] Absolute Immature Granulocyte Count 0.00 0.00 - 0.30 x 1000/ L 05/13/2022 12:09 PM EDT [facility] Absolute nRBC 0.00 0.00 - 1.00 x 1000/ L 05/13/2022 12:09 PM EDT [facility] Blood Venipuncture / Unknown 05/13/2022 10:46 AM EDT 05/13/2022 10:46 AM EDT [facility] MUSICAL INSTRUMENT SUPERVISOR LAB BLOOD ORDERABLES Fi nal Result [address] [phone] * (ABNORMAL) Thyroid antibody panel ( GH) (05/13/2022 10:46 AM EDT) Thyroid Peroxidase Ab 163(H) 0 - 99 IU/mL 05/15/2022 1:01 PM EDT [facility] Thyroglobulin Ab <10.0 0 - 125 IU/mL 05/15/2022 1:01 PM EDT [facility] Blood Venipuncture / Unknown 05/13/2022 10:46 AM EDT 05/13/2022 10:46 AM EDT Ivana PetInfopiale MUSICAL INSTRUMENT SUPERVISOR LAB BLOOD [place]AB[place] [address], [facility] [phone] * (ABNORMAL) THYROID PEROXIDASE ANTIBODY (05/13/2022 10:46 AM EDT) Thyroid Peroxidase Ab 163(H) 0 - 99 IU/mL 05/15/2022 1:01 PM EDT [facility] Blood Venipuncture / Unknown 05/13/2022 10:46 AM EDT 05/13/2022 10:46 AM EDT [facility] LAB BLOOD ORDERABLES Fi nal Result Performing Organization Address [facility] de Phone Number [address] [phone] * TESTOSTERONE, TOTAL (BH GH L LMW [...] [place]. J Clin Endocrinol Metab. 2017 Apr 1;102(4):9648-0862. Blood Venipuncture / Unknown 05/13/2022 10:46 AM EDT 05/13/2022 10:46 AM EDT Ivana Martinez APRN LAB BLOOD ORDERABLES Fi nal Result Performing Organization Address [facility]/ZIP Co de Phone Number [address] [phone] * (ABNORMAL) Gamma GT (05/13/2022 10:46 AM EDT) GGT 92(H) <48 U/L 05/13/2022 12:53 PM EDT [facility] Blood Venipuncture / Unknown 05/13/2022 10:46 AM EDT 05/13/2022 10:46 AM EDT [facility] MUSICAL INSTRUMENT SUPERVISOR LAB BLOOD ORDERABLES Fi nal Result Performing Organization Address [facility] de Phone Number [address] [phone] * (ABNORMAL) Vitamin D, 25-hydroxy (05/13/2022 10:46 AM EDT) Vitamin U10-Gkgcjyc 16.9(L) 30.0 - 100.0 ng/mL 05/13/2022 1:47 PM EDT [facility] Comment: Vitamin D Status: Results in ng/mL <10.0: Deficient 10.0 - 29.9: Insufficient 30.0 - 100.0: Sufficient >100: Toxic Reference ranges established by [employer]. Blood Venipuncture / Unknown 05/13/2022 10:46 AM EDT 05/13/2022 10:46 AM EDT Ivana Martinez MUSICAL INSTRUMENT SUPERVISOR LAB BLOOD ORDERABLES Fi nal Result Performing Organization Address [facility] de Phone Number [address] [phone] * Hepatitis C Ab with reflex to [...] APRN LAB BLOOD ORDERABLES Fi nal Result [facility] [address] [place] [address], [facility] [phone] * (ABNORMAL) Lipid panel (05/13/2022 10:46 AM EDT) Cholesterol 185 See Comment mg/dL 05/13/2022 1:07 PM [facility] Comment: Total Cholesterol (mg/dL) Adults (>18 years) Children (<18 years) Desirable <200 <170 Borderline-High 200-239 170-199 High >=240 >=200 HDL 63 >=40 mg/dL 05/13/2022 1:07 PM [facility] Triglycerides 268(H) See Comment mg/dL 05/13/2022 1:07 PM [facility] Comment: Triglycerides (mg/dL) Adults (>18 years) Children (<18 years) Desirable <150 Not Established Borderline-High 150-199 Not Established High 200-499 Not Established Chol/HDL Ratio 2.9 0.0 - 5.0 05/13/2022 1:07 PM [facility] LDL Calculated 79 See Comment mg/dL 05/13/2022 1:07 PM [facility] Comment: Effective 01/09/2022, LDL is calculated using the El-KRISTIN equation, which is more accurate than the Friedewald and Gato-Sanchez equations. LDL Cholesterol (mg/dL) Adults (>18 years) Children (<18 years) Desirable <100 <110 Above Desirable 100-129 Not Established Borderline-High 130-159 110-129 High 160-189 >=130 Very High >=190 Not Established Blood Venipuncture / Unknown 05/13/2022 10:46 AM EDT 05/13/2022 10:46 AM EDT [facility] LAB BLOOD ORDERABLES Fi nal Result Performing Organization Address City/[facility]/ZIP Co de Phone Number [address] [phone] * (ABNORMAL) Vitamin B12 (05/13/2022 10:46 AM EDT) Vitamin B12 168(L) 232 - 1,245 pg/mL 05/13/2022 1:40 PM EDT [facility] Blood Venipuncture / Unknown 05/13/2022 10:46 AM EDT 05/13/2022 10:46 AM EDT [facility] LAB BLOOD ORDERABLES Fi nal Result Performing Organization Address [facility]/ZIP Co de Phone Number [address] [phone] * (ABNORMAL) Hemoglobin A1c (05/13/2022 10:46 AM EDT) Hemoglobin A1c 5.7(H) 4.0 - 5.6 % 05/13/2022 1:42 PM T [facility] Comment: Hemoglobin [...] and follows the calculation proposed by the [place] [employer] (Diabetes Care 31: 1-6, 2008). It may have less accuracy in children, women and patients with certain erythrocyte disorders. Blood Venipuncture / Unknown 05/13/2022 10:46 AM EDT 05/13/2022 10:46 AM EDT Ivana Martinez APRN LAB BLOOD ORDERABLES Fi nal Result Performing Organization Address [facility]/ZIP Co de Phone Number [address] [phone] * (ABNORMAL) TSH w/reflex to FT4 (BH GH LMW Q YH) (05/13/2022 10:46 AM EDT) Thyroid Stimulating Hormone 4.470(H) See Comment IU/mL 05/13/2022 1:07 PM EDT [facility] Comment: Male & Non- Females: 0.270-4.200 IU/mL 1st Trimester: 0.110-3.480 IU/mL 2nd Trimester: 0.320-3.850 IU/mL Blood Venipuncture / Unknown 05/13/2022 10:46 AM EDT 05/13/2022 10:46 AM EDT Ivanaaldo Martinez MUSICAL INSTRUMENT SUPERVISOR LAB BLOOD ORDERABLES Fi nal Result [place] [id number], [facility] [phone] documented in this encounter Visit Diagnoses Diagnosis [...] documented as of this encounter Care Teams Pants Closer Relationship Specialty Start Date End Date Ivana Martinez APRN PCP - General Family Medicine 05/13/22 01/27/24 documented as of this encounter
--- OUTSIDE RECORDS SUMMARY | 2025-08-01 12:16 | XMS_ITS | Encounter Summary ---
Author Organization [facility] Address [address] [place] [address] Care Team Providers Care Ground School Instructor Name Role Phone Ivana Martinez HECTOR Primary Care Provider Reason for Visit * Reason Comments Medication Refill Encounter Details Date Type Department Care Team (Late Contact Info) Description 12/30/2021 Refill [facility] G[facility] [address] [facility] [address] [place], [place] [address] Matthew Huynh MD [address] [place] [address] Medication Refill Social History Tobacco [...] documented as of this encounter Care Teams Ground School Instructor Relationship Specialty Start Date End Date Ivana Martinez APRN PCP - General Family Medicine 05/13/22 01/27/24 documented as of this encounter
--- OUTSIDE RECORDS SUMMARY | 2025-08-01 12:16 | XMS_ITS | Encounter Summary ---
Author Organization [facility] Address [address] [place] [address] Care Team Providers Care Liberal Arts And Humanities Chair Name Role Phone Ivana Martinez HECTOR Primary Care Provider Reason for Visit * Reason Onset Date Comments Medication Refill 12/17/2022 Encounter Details Date Type Department Care Team (Late st Contact Info) Description 12/17/2022 Refill [facility] Dermatology at [address] [place], [place] [address] Noel Brandon MD [address] [place] [phone] Medication Refill Social History Tobacco Use Types [...] documented as of this encounter Care Teams Liberal Arts And Humanities Chair Relationship Specialty Start Date End Date Ivana Martinez APRN PCP - General Family Medicine 05/13/22 01/27/24 documented as of this encounter
--- OUTSIDE RECORDS SUMMARY | 2025-08-01 12:16 | XMS_ITS | Encounter Summary ---
Author Organization [facility] and [facility] Address [address] [place] [address] Care Team Providers Care Discharge Planner Name Role Phone Ivana Martinez APRN Primary Care Provider Encounter Details Date Type Department Care Team (Late st Contact Info) Description 09/03/2022 Transcribed Orders [place] [facility] [address] [place], [place] [address] Ivana Martinez APRN [address] [facility] [address] [place] [address] Dysuria (Primary Dx) Social History [...] Date/Time Associated Diagnosis Comments URINE MICROSCOPIC ([facility] LMW YH) Routine 09/03/2022 10:54 AM EST Dysuria URINALYSIS-MACROSCOP IC W/REFLEX MICROSCOPIC Routine 09/03/2022 10:54 AM EST Dysuria C. TRACHOMATIS / N. GONORRHOEAE, NAAT ( GH L LMW YH) Routine 09/03/2022 10:54 AM EST Dysuria NEISSERIA GONORRHEA, NAAT (LAB ORDER ONLY) ([facility] L LMW YH) Routine 09/03/2022 10:54 AM EST Dysuria CHLAMYDIA TRACHOMATIS, NAAT (LAB ORDER ONLY) ([facility] L LMW YH) Routine 09/03/2022 10:54 AM EST Dysuria URINE CULTURE Routine 09/03/2022 10:54 AM EST Dysuria documented in this encounter Results * (ABNORMAL) Urine microscopic ([facility] LMW YH) (09/03/2022 10:54 AM EST) RBC/HPF, UA 6(H) 0 - 2 /HPF 09/03/2022 12:05 PM [facility] WBC/HPF, UA 1 0 - 5 /HPF 09/03/2022 12:05 PM [facility] Bacteria, UA Rare None-Rare /HPF 09/03/2022 12:05 PM [facility] Hyaline Casts, UA 1 0 - 3 /LPF 09/03/2022 12:05 PM [facility] Urine Collection / Unknown 09/03/2022 10:54 AM EST 09/03/2022 10:54 AM EST us Ivana Martinez STAGE MANAGER URINE ORDERABLES Final Result [address] [phone] * Chlamydia trachomatis, NAAT ( GH LMW YH) (09/03/2022 10:54 AM EST) Chlamydia DNA Probe Negative Negative 09/04/2022 11:43 AM [facility] Comment:The [employer]ptima Combo2 As say is not intended for the evaluation of suspected sexual abuse or for other medico-legal indications. Specimen Source Urine (Dirty Catch) for DNA Probe 09/04/2022 11:43 AM [facility] Culture URINE SPECIMEN / Unknown Collection / Unknown 09/03/2022 10:54 AM EST 09/03/2022 10:54 AM EST Ivana Martinez APRN MICROBIOLOGY - GENERAL ORDERABLES Final Result Performing Organization Address [facility]/ZIP Co de Phone Number [address] [phone] * Neisseria gonorrhoeae, NAAT ( GH L LMW YH) (09/03/2022 10:54 AM EST) Neisseria gonorrhoeae, DNA Probe Negative Negative 09/04/2022 11:43 AM [facility] Comment:The [employer]pt[employer] Combo2 As say is not intended for the evaluation of suspected sexual abuse or for other medico-legal indications. Specimen Source Urine (Dirty Catch) for DNA Probe 09/04/2022 11:43 AM [facility] Culture URINE SPECIMEN / Unknown Collection / Unknown 09/03/2022 10:54 AM EST 09/03/2022 10:54 AM EST Ivana Martinez APRN MICROBIOLOGY - GENERAL ORDERABLES Final Result Performing Organization Address [facility]/ZIP Co de Phone Number [address] [phone] * (ABNORMAL) Urinalysis-macroscopic w/reflex microscopic (09/03/2022 10:54 AM EST) Clarity, UA Clear Clear 09/03/2022 11:59 AM [facility] Color, UA Yellow Yellow, Colorless 09/03/2022 11:59 AM [facility] Specific [place], UA 1.015 1.005 - 1.030 09/03/2022 11:59 AM [facility] pH, UA 6.5 5.5 - 7.5 09/03/2022 11:59 AM [facility] Protein, UA Negative Negative, Trace 09/03/2022 11:59 AM [facility] Glucose, UA Negative Negative 09/03/2022 11:59 AM [facility] Ketones, UA Negative Negative 09/03/2022 11:59 AM [facility] Blood, UA 2+(A) Negative 09/03/2022 11:59 AM [facility] Bilirubin, UA Negative Negative 09/03/2022 11:59 AM [facility] Leukocytes, UA Negative Negative 09/03/2022 11:59 AM [facility] Nitrite, UA Negative Negative 09/03/2022 11:59 AM [facility] Urobilinogen, UA <2.0 <=2.0 mg/dL 09/03/2022 11:59 AM [facility] Urine Collection / Unknown 09/03/2022 10:54 AM EST 09/03/2022 10:54 AM EST Ivana Martinez STAGE MANAGER URINE ORDERABLES Final Result Performing Organization Address City/[facility]/ZIP Co de Phone Number [address] [phone] * Urine culture (09/03/2022 10:54 AM EST) Urine Culture, Routine No Growth 09/04/2022 1:27 PM [facility] Culture URINE SPECIMEN OBTAINED BY CLEAN CATCH PROCEDURE / Unknown Collection / Unknown 09/03/2022 10:54 AM EST 09/03/2022 10:54 AM EST Ivana Martinez APRN MICROBIOLOGY - GENERAL ORDERABLES Final Result Performing Organization Address [facility]/ZIP Co de Phone Number [address] [phone] documented in this encounter Visit Diagnoses Diagnosis Dysuria- Primary documented in this encounter Additional Health Concerns Assessment Noted Time PHQ-9 Depression Total Score: 1 09/02/19 23 1:40 PM EST documented as of this encounter Care Teams Discharge Planner Relationship Specialty Start Date End Date Ivana Martinez APRN PCP - General Family Medicine 05/13/22 01/27/24 documented as of this encounter
--- OUTSIDE RECORDS SUMMARY | 2025-08-01 12:16 | XMS_ITS | Encounter Summary ---
Author Organization [facility] Address [address] [place] [address] Care Team Providers Care Dermatologist Managing Partner Name Role Phone Ivana Martinez APRN Primary Care Provider Reason for Visit * Reason Onset Date Comments Medication Refill 10/20/2022 Encounter Details Date Type Department Care Team (Late st Contact Info) Description 10/20/2022 Refill [facility] [place] [facility] [address] [place] [address] Ivana Martinez APRN [address] [place] [phone] Medication Refill Social History Tobacco Use [...] documented as of this encounter Care Teams Dermatologist Managing Partner Relationship Specialty Start Date End Date Ivana Martinez APRN PCP - General Family Medicine 05/13/22 01/27/24 documented as of this encounter
--- OUTSIDE RECORDS SUMMARY | 2025-08-01 12:16 | XMS_ITS | Encounter Summary ---
Author Organization [facility] Address [address] [place] [address] Care Team Providers Care Hazardous Material Specialist Name Role Phone Ivana Martinez HECTOR Primary Care Provider Reason for Visit * Reason Onset Date Comments Medication Refill 05/02/2022 Encounter Details Date Type Department Care Team (Late st Contact Info) Description 05/02/2022 Refill [facility] Internal Medicine [address] [place] [address] Zoya Clayton MD [address] [place] [phone] Medication Refill Social History Tobacco Use [...] documented as of this encounter Care Teams Hazardous Material Specialist Relationship Specialty Start Date End Date Ivana Martinez APRN PCP - General Family Medicine 05/13/22 01/27/24 documented as of this encounter
--- OUTSIDE RECORDS SUMMARY | 2025-08-01 12:16 | XMS_ITS | Encounter Summary ---
Author Organization [facility] Address [address] [place] [address] Care Team Providers Care Trust Manager Name Role Phone Ivana Martinez HECTOR Primary Care Provider Reason for Visit * Reason Onset Date Comments Medication Refill 08/28/2022 Encounter Details Date Type Department Care Team (Late st Contact Info) Description 08/28/2022 Refill [facility] Internal Medicine [address] [place] [address] Zoya Clayton MD [address] [place] [phone] Medication Refill Social History Tobacco Use [...] documented as of this encounter Care Teams Trust Manager Relationship Specialty Start Date End Date Ivana Martinez APRN PCP - General Family Medicine 05/13/22 01/27/24 documented as of this encounter
--- OUTSIDE RECORDS SUMMARY | 2025-08-01 12:16 | XMS_ITS | Encounter Summary ---
Author Organization [facility] Address [address] [place] [address] Care Team Providers Care Tile Mechanic Name Role Phone Ivana Martinez HECTOR Primary Care Provider Reason for Visit * Reason Onset Date Comments Medication Refill 05/30/2022 Encounter Details Date Type Department Care Team (Late st Contact Info) Description 05/30/2022 Refill [facility] Internal Medicine [address] [place] [address] Zoya Claytno MD [address] [place] [phone] Medication Refill Social History Tobacco Use [...] documented as of this encounter Care Teams Tile Mechanic Relationship Specialty Start Date End Date Ivana Martinez APRN PCP - General Family Medicine 05/13/22 01/27/24 documented as of this encounter
--- OUTSIDE RECORDS SUMMARY | 2025-08-01 12:16 | XMS_ITS | Encounter Summary ---
Author Organization [facility] Address [address] [place] [address] Care Team Providers Care Saturation Equipment Operator Name Role Phone Ivana Martinez HECTOR Primary Care Provider Reason for Visit * Reason Onset Date Comments Medication Refill 02/26/2022 Encounter Details Date Type Department Care Team (Late st Contact Info) Description 02/26/2022 Refill [facility] Internal Medicine [address] [place] [address] Zoya Clayton MD [address] [place] [phone] Medication Refill Social History Tobacco Use [...] documented as of this encounter Care Teams Saturation Equipment Operator Relationship Specialty Start Date End Date Ivana Martinez APRN PCP - General Family Medicine 05/13/22 01/27/24 documented as of this encounter
--- OUTSIDE RECORDS SUMMARY | 2025-08-01 12:16 | XMS_ITS | Patient Health Record ---
Author Organization [facility] [place], Address [address] [place] [address] Reason For Referral No Information Plan Of Treatment No Information Insurance Providers Payer Name Payer Address Payer Phone Subscriber Number Group Number Insured Name Patient Relationship to Insured Coverage Start Date Coverage End Date [employer] [place] [address] [place] [address] [id number] Jay major Self - patient is the insured
--- OUTSIDE RECORDS SUMMARY | 2025-08-01 12:16 | XMS_ITS | Encounter Summary ---
Author Organization [facility] Address [address] [place] [address] Care Team Providers Care Sash Repairer Name Role Phone Andrew Martinezhanie HECTOR Primary Care Provider Reason for Visit * Reason Comments Medication Refill Encounter Details Date Type Department Care Team (Late st Contact Info) Description 06/22/2022 Refill [facility] Internal Medicine [address] [place] [address] Zoya Clayton MD [facility] [address] [address] Medication Refill Social History Tobacco [...] documented as of this encounter Care Teams Sash Repairer Relationship Specialty Start Date End Date Ivana Martinez APRN PCP - General Family Medicine 05/13/22 01/27/24 documented as of this encounter
--- OUTSIDE RECORDS SUMMARY | 2025-08-01 12:16 | XMS_ITS | Encounter Summary ---
Author Organization [facility] Address [address] [place] [address] Care Team Providers Care Television Engineer Name Role Phone Ivana Martinez HECTOR Primary Care Provider Encounter Details Date Type Department Care Team (Late st Contact Info) Description 10/12/2021 Scanned Document [facility] G[facility]enterology [facility] [address] [place], [place] [id number] Matthew Huynh MD [address] [place] [address] Social History Tobacco Use Types [...] as of this encounter Care Teams Television Engineer Relationship Specialty Start Date End Date Ivana Martinez APRN PCP - General Family Medicine 05/13/22 01/27/24 documented as of this encounter
--- OUTSIDE RECORDS SUMMARY | 2025-08-01 12:16 | XMS_ITS | Encounter Summary ---
Author Organization [facility] Address [address] [place] [address] Care Team Providers Care Application Performance Engineer Name Role Phone Michelle Ivana HECTOR Primary Care Provider Encounter Details Date Type Department Care Team (Late st Contact Info) Description 11/19/2021 Scanned Document [facility] Internal Medicine [address] [place], [place] [id number] Provider, Historical . Social History Tobacco Use [...] as of this encounter Care Teams Application Performance Engineer Relationship Specialty Start Date End Date Ivana Martinez APRN PCP - General Family Medicine 05/13/22 01/27/24 documented as of this encounter
--- OUTSIDE RECORDS SUMMARY | 2025-08-01 12:16 | XMS_ITS | Encounter Summary ---
Author Organization [facility] Address [address] [place] [address] Care Team Providers Care Green Tire Inspector Name Role Phone Ivana Martinez HECTOR Primary Care Provider Reason for Visit * Reason Comments Medication Refill Encounter Details Date Type Department Care Team (Late st Contact Info) Description 04/01/2022 Refill [facility] Internal Medicine [address], [address] [place] [address] Zoya Clayton MD [facility] [address] [phone] Medication Refill Social History [...] documented as of this encounter Care Teams Green Tire Inspector Relationship Specialty Start Date End Date Ivana Martinez APRN PCP - General Family Medicine 05/13/22 01/27/24 documented as of this encounter
== END 2025-08-01 14:05 | disposition home or self-care (01) ==
LOC: HO.HID 10:43
PROVIDERS: PCP Internal Medicine; Visit Provider Internal Medicine
DX: B35.4 Tinea corporis (principal)
CPT/HCPCS: 99213

== ENCOUNTER → 2025-08-01 10:43 | Outpatient (BNVA) | payer OTHER, SELFPAY | PROVIDERS: PCP Internal Medicine; Visit Provider Internal Medicine | DX: B35.4 Tinea corporis (principal) | CPT/HCPCS: 99212 ==